=== PATIENT | male | born 1975 | race African-American/Black ===

== ENCOUNTER 2017-12-13 02:23 | Emergency (ER) | payer SELFPAY ==
--- OUTSIDE RECORDS SUMMARY | 2017-12-13 02:25 | XMS REPORT ---
:1975 [facility] Address [address] [place] [address] Dr. Narvaez [address] [place] [id number] Care Team Providers Name Role Phone Unavailable Unavailable Unavailable Problems This patient has no known problems. Allergies, Adverse Reactions, Alerts This patient has no known allergies or adverse reactions. Medications This patient has no known medications. Results Test Description Test Time Test Comments Text Results Atomic Results Result Comments SPINE LUMBAR SACR 2017-04-08 13:37:00 [facility] [place] [id number] IMAGING REPORTPatient Name: Gustavo BARROSOte of Service: [id number]: 41 Sex: M Order #: [id number] Room: CCSDOB: 1975 X-Ray Number: [id number] Record Number: [id number] Hospital Number: [id number] Physician: Agatha CROW Physician: RUBY TREVIÑO LUMBAR SACR, 04/08/2017 1:18 PM:History: LBP (lower back pain) without Trauma/Injury. . Low back painwith decreased range of motion. Left lower extremity radiculopathy..Comparison: None.Technique: 6 views lumbar spineFindings/Impression:The lumbar vertebra are normal in height. There are 5 lumbar-type vertebrallevels. There is mild grade 1 retrolisthesis of L4 on L5 and L5 on S1.There is no fracture. The facet joints are aligned bilaterally.Electronically Signed By: Ulises Pierson M.D., 04/08/2017 1:34 PMLegally authenticated by EARLINE ANAYA 2017-04-08 13:34:45
--- OUTSIDE RECORDS SUMMARY | 2017-12-13 02:25 | XMS REPORT | Continuity of Care Document ---
:1975 Author Organization [facility] Care Team Providers Name Role Phone BETHANY JORDAN Admitting Physician BETHANY JORDAN Attending Physician NONE, AVAILABLE Primary Care Physician Unavailable Hospital Admission Diagnosis Code Admission Diagnosis Date [id number] Pain in thoracic spine Social History Element Code Description Smoking Start Date End Date Description Status Code System Smoking Status 449300289 Never smoker SNOMED-CT Problems Code Code System Problem Name Start Date End Date Status 130216909 SNOMED-CT Backache 10/21/2017 Active Medications RxNorm Medication Dose Route Instructions Indications Start End Status Date Date 86 Prednisone 60 Oral orally every Active milligram day (5 day) 018 (administer with food or milk;) Allergies No Known Allergies Results No data in the system Vital Signs Vitals Value Date Body Temperature 97.5 F 10/21/2017 Respiratory Rate 20 10/21/2017 O2% BldC Oximetry 98 10/21/2017 BP Systolic 132 mmHg 10/21/2017 BP Diastolic 78 mmHg 10/21/2017 Height 64 in 10/21/2017 Weight Measured 282.19 lbs 10/21/2017 BSA (Body Surface Area) 2.2642 10/21/2017 BMI (Body Mass Index) 48.7 10/21/2017 Plan of Care No data in the system Procedures No data in the system Encounters Date Code Diagnosis Status (ICD10) - M546 PAIN IN THORACIC SPINE Active Immunizations No data in the system Functional Status No data in the system Hospital Discharge Instructions Discharge Instructions 2Discharge DiagnosisBack PainImportant InformationConsult your physician or return to the Emergency Department immediately if worse, if not better as expected, or if any problems arise.Follow Up CareYesImportant InformationPlease understand that you have received care only on an emergency basis. If your condition does notimprove, you should call your personal physician for follow-up care. If you do not have a physician,you may call the referred physician listed.If you have questions about your care or these discharge instructions, you may call the Emergency Department. Please take your discharge paperwork with you to any follow-up appointments.Follow-Up With:Primary Care PhysicianFollow up Provider 1Follow up with PCP at 1st available appointmentActivity LevelAs tolerated, unrestrictedDietRegularPrescriptions Given Via:Printed and given to patient/ caregiver.Patient TeachingPatient education provided
--- NOTE | 2017-12-13 03:35 | ER ---
Nurse's Notes [facility] Name: Ruben Alamo Age: 42 yrs Sex: Male : 1975 Arrival Date: 12/13/2017 Time: 02:27 Bed 19 Private MD: Diagnosis: Low back pain;Obesity, unspecified;Urinary tract infection, site not specified Presentation: 12/13 02:39 Presenting complaint: Patient states: "I woke up with my back hurting and called my jd3 doctor and he said to come here. I have had a back surgery in 2014, but I just wanted to get your doctors opinion.". Transition of care: patient was not received from another setting of care. Onset of symptoms was December 13, 2017. Care prior to arrival: None. 02:39 Method Of Arrival: Ambulatory jd3 02:39 Acuity: LIZBETH 4 jd3 Historical: - Allergies: 02:43 No Known Allergies; jd3 - Home Meds: 02:43 hydrocodone-acetaminophen 10-325 mg oral tab [Active]; Robaxin Oral [Active]; jd3 02:43 gabapentin oral oral [Active]; jd3 - PMHx: 02:43 None; jd3 - PSHx: 02:43 back surgery; facail reconstruction; jd3 - Immunization history:: Adult Immunizations up to date. - Social history:: Smoking status: Patient uses tobacco products, chewing tobacco. Screenin:46 Abuse screen: Denies threats or abuse. Nutritional screening: No deficits noted. jd3 Tuberculosis screening: No symptoms or risk factors identified. Fall Risk None identified. Assessment: 02:44 General: Appears in no apparent distress. uncomfortable, Behavior is calm, cooperative, jd3 appropriate for age. Pain: Complains of pain in thoracic area Pain radiates to lumbar area Pain currently is 6 out of 10 on a pain scale. Quality of pain is described as aching, Pain began 1 hour ago. Neuro: Level of Consciousness is awake, alert, obeys commands, Oriented to person, place, time, situation. Cardiovascular: Heart tones S1 S2 present Capillary refill < 3 seconds Patient's skin is warm and dry. Respiratory: Airway is patent Respiratory effort is even, unlabored, Respiratory pattern is regular, symmetrical, Breath sounds are clear bilaterally. GI: Abdomen is round Bowel sounds present X 4 quads. Abd is soft and non tender X 4 quads. : No signs and/or symptoms were reported regarding the genitourinary system. EENT: No signs and/or symptoms were reported regarding the EENT system. Derm: Skin is intact, Skin is dry, Skin is normal, Skin temperature is warm. Musculoskeletal: Circulation, motion, and sensation intact. Range of motion: intact in all extremities. 04:27 Reassessment: Patient appears in no apparent distress at this time. Patient and/or jd3 family updated on plan of care and expected duration. Pain level reassessed. Patient is alert, oriented x 3, equal unlabored respirations, skin warm/dry/pink. pt reporting understanding of discharge instructions, even and steady gait upon discharge. Vital Signs: 02:44 BP 148 / 95; Pulse 89; Resp 18 S; Temp 98.6(O); Pulse Ox 97% on R/A; Weight 127.01 kg jd3 (R); Height 5 ft. 4 in. (162.56 cm) (R); Pain 6/10; 04:28 BP 136 / 83; Pulse 81; Resp 17 S; Pulse Ox 97% on R/A; jd3 02:44 Body Mass Index 48.06 (127.01 kg, 162.56 cm) jd3 ED Course: 02:27 Patient arrived in ED. ds1 02:39 Trung Melo, RN is Primary Nurse. jd3 02:41 Triage completed. jd3 02:44 Arm band placed on. jd3 02:46 Patient has correct armband on for positive identification. Bed in low position. Call j light in reach. Side rails up X 1. 03:04 Mynor White MD is Attending Physician. geovanny 03:44 Patient moved to radiology via wheelchair. kw 03:44 X-ray completed. Patient tolerated procedure well. kw 03:45 Patient moved back from radiology. kw 04:28 No provider procedures requiring assistance completed. Patient did not have IV access jd3 during this emergency room visit. Administered Medications: No medications were administered Outcome: 03:34 Discharge ordered by . geovanny 04:29 Discharged to home ambulatory. jd3 04:29 Condition: stable 04:29 Discharge instructions given to patient, Instructed on discharge instructions, follow up and referral plans. medication usage, Demonstrated understanding of instructions, follow-up care, medications, Prescriptions given X 3. 04:29 Patient left the ED. jd3 Signatures: Mynor White MD MD cha Sanford, Demi ds1 Joselyn Hooks Jonathon, RN RN jd3
--- NOTE | 2017-12-13 03:35 | EDPHYS ---
Physician Documentation [facility] Name: Ruben Alamo Age: 42 yrs Sex: Male : 1975 Arrival Date: 12/13/2017 Time: 02:27 Bed 19 Private MD: ED Physician Mynor White HPI: 12/13 03:10 This 42 yrs old Black Male presents to ER via Ambulatory with complaints of Neck and geovanny Upper Back Pain. 03:10 This 42 yrs old Black Male presents to ER via Ambulatory with complaints of Neck and geovanny Upper Back Pain. Historical: - Allergies: 02:43 No Known Allergies; jd3 - Home Meds: 02:43 hydrocodone-acetaminophen 10-325 mg oral tab [Active]; Robaxin Oral [Active]; jd3 02:43 gabapentin oral oral [Active]; jd3 - PMHx: 02:43 None; jd3 - PSHx: 02:43 back surgery; facail reconstruction; jd3 - Immunization history:: Adult Immunizations up to date. - Social history:: Smoking status: Patient uses tobacco products, chewing tobacco. ROS: 03:12 Constitutional: Negative for fever, chills, and weight loss, Eyes: Negative for injury, geovanny pain, redness, and discharge, ENT: Negative for injury, pain, and discharge, Neck: Negative for injury, pain, and swelling, Cardiovascular: Negative for chest pain, palpitations, and edema, Respiratory: Negative for shortness of breath, cough, wheezing, and pleuritic chest pain, Back: Negative for injury and pain, : Negative for injury, bleeding, discharge, and swelling, MS/Extremity: Negative for injury and deformity, Skin: Negative for injury, rash, and discoloration, Neuro: Negative for headache, weakness, numbness, tingling, and seizure, Psych: Negative for depression, anxiety, suicide ideation, homicidal ideation, and hallucinations, Allergy/Immunology: Negative for hives, rash, and allergies, Endocrine: Negative for neck swelling, polydipsia, polyuria, polyphagia, and marked weight changes, Hematologic/Lymphatic: Negative for swollen nodes, abnormal bleeding, and unusual bruising. 03:12 Abdomen/GI: Positive for 03:12 Back: Positive for decreased range of motion, pain at rest, of the lumbar area. Exam: 03:12 Constitutional: This is a well developed, well nourished patient who is awake, alert, geovanny and in no acute distress. Head/Face: Normocephalic, atraumatic. Eyes: Pupils equal round and reactive to light, extra-ocular motions intact. Lids and lashes normal. Conjunctiva and sclera are non-icteric and not injected. Cornea within normal limits. Periorbital areas with no swelling, redness, or edema. ENT: Nares patent. No nasal discharge, no septal abnormalities noted. Tympanic membranes are normal and external auditory canals are clear. Oropharynx with no redness, swelling, or masses, exudates, or evidence of obstruction, uvula midline. Mucous membranes moist. Neck: Trachea midline, no thyromegaly or masses palpated, and no cervical lymphadenopathy. Supple, full range of motion without nuchal rigidity, or vertebral point tenderness. No Meningismus. Chest/axilla: Normal chest wall appearance and motion. Nontender with no deformity. No lesions are appreciated. Cardiovascular: Regular rate and rhythm with a normal S1 and S2. No gallops, murmurs, or rubs. Normal PMI, no JVD. No pulse deficits. Respiratory: Lungs have equal breath sounds bilaterally, clear to auscultation and percussion. No rales, rhonchi or wheezes noted. No increased work of breathing, no retractions or nasal flaring. Abdomen/GI: Soft, non-tender, with normal bowel sounds. No distension or tympany. No guarding or rebound. No evidence of tenderness throughout. Male : Normal genitalia with no discharge or lesions. Skin: Warm, dry with normal turgor. Normal color with no rashes, no lesions, and no evidence of cellulitis. MS/ Extremity: Pulses equal, no cyanosis. Neurovascular intact. Full, normal range of motion. Neuro: Awake and alert, GCS 15, oriented to person, place, time, and situation. Cranial nerves II-XII grossly intact. Motor strength 5/5 in all extremities. Sensory grossly intact. Cerebellar exam normal. Normal gait. Psych: Awake, alert, with orientation to person, place and time. Behavior, mood, and affect are within normal limits. 03:12 Back: pain, that is mild, that is moderate, ROM is painful, normal spinal alignment noted, CVA tenderness, is absent, muscle spasm, is appreciated in the left low back and right low back. Vital Signs: 02:44 BP 148 / 95; Pulse 89; Resp 18 S; Temp 98.6(O); Pulse Ox 97% on R/A; Weight 127.01 kg jd3 (R); Height 5 ft. 4 in. (162.56 cm) (R); Pain 6/10; 04:28 BP 136 / 83; Pulse 81; Resp 17 S; Pulse Ox 97% on R/A; jd3 02:44 Body Mass Index 48.06 (127.01 kg, 162.56 cm) jd3 MDM: 03:04 Patient medically screened. [facility] 03:12 Data reviewed: vital signs, nurses notes, lab test result(s), EKG. [facility] 12/13 03:22 Order name: Urine Dipstick--Ancillary (enter results) rg2 12/13 03:33 Order name: Urine Culture [facility] 12/13 03:10 Order name: Urine Dipstick-Ancillary (obtain specimen); Complete Time: 03:19 [facility] 12/13 03:10 Order name: Lumbar Spine (3 Views) XRAY [facility] 12/13 03:33 Order name: Urine Microscopic Only [facility] 12/13 04:27 Order name: Urine Dipstick-Ancillary EDMS Administered Medications: No medications were administered Disposition: 12/13/17 03:34 Discharged to Home. Impression: Low back pain, Obesity, unspecified, Urinary tract infection, site not specified. - Condition is Stable. - Discharge Instructions: Back Pain, Adult, Chronic Back Pain, Musculoskeletal Pain, Back Pain, Adult, [id number], Back Exercises, [id number]. - Prescriptions for Skelaxin 800 mg Oral Tablet - take 1 tablet by ORAL route every 6 hours As needed; 28 tablet. Tylenol- Codeine #3 300-30 mg Oral Tablet - take 2 tablet by ORAL route every 6 hours As needed; 30 tablet. Cipro 500 mg Oral Tablet - take 1 tablet by ORAL route every 12 hours for 7 days; 14 tablet. - Medication Reconciliation Form, Thank You Letter, Antibiotic Education, Prescription Opioid Use, Work release form form. - Follow up: Private Physician; When: 2 - 3 days; Reason: Recheck today's complaints, Continuance of care, Re-evaluation by your physician. - Problem is new. - Symptoms have improved. Signatures: Dispatcher [employer] EDMS Mynor White MD MD geovanny Melo, Trung, RN RN jd3
[2017-12-13 04:26] LABS: Urine Blood NEGATIVE (NEG); Urine Glucose NEGATIVE (NEG); Urine Protein NEGATIVE (NEG)
[2017-12-13 04:43] LABS: Urine Culture Reflex Order NOT NEEDED
[2017-12-13 04:44] LABS: Urine Bacteria <20 /HPF (NONE SEEN); Urine RBC NONE SEEN /HPF (NONE SEEN)
--- NOTE | 2017-12-13 09:06 | RAD REPORT ---
EXAM DESCRIPTION: Lumbar Spine 3 Views CLINICAL HISTORY: Radiculopathy COMPARISON: None. FINDINGS: Vertebral body heights appear maintained. No compression fracture noted. Disc thinning wit h small endplate osteophytes at L4-5 and L5-S1. 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 IMPRESSION: Mild lower lumbar spondylosis as detailed. Followup MR imaging of lumbar spine may be of value for further characterization.
== END 2017-12-13 04:29 | disposition home or self-care (01) ==
LOC: ER 02:23
DX: F17.220 Nicotine dependence, chewing tobacco, uncomplicated; E66.9 Obesity, unspecified; N39.0 Urinary tract infection, site not specified
CPT/HCPCS: 72100; 81003; 81015; 87086; 87088; 99283

== ENCOUNTER 2017-12-31 19:42 | Emergency (ER) | payer SELFPAY ==
--- OUTSIDE RECORDS SUMMARY | 2017-12-31 19:44 | XMS REPORT ---
:1975 [facility] Address [address] [place] [address] Dr. Narvaez [address] [place] [id number] Care Team Providers Name Role Phone Unavailable Unavailable Unavailable Problems This patient has no known problems. Allergies, Adverse Reactions, Alerts This patient has no known allergies or adverse reactions. Medications This patient has no known medications. Results Test Description Test Time Test Comments Text Results Atomic Results Result Comments SPINE LUMBAR SACR 2017-04-08 13:37:00 [facility] [place] [id number] IMAGING REPORTPatient Name: Gustavo BARROSOte of Service: [id number]: 41 Sex: M Order #: [id number] Room: CCSDOB: 1975 X-Ray Number: [id number] Record Number: [id number] Hospital Number: [id number] Physician: Agatha CROW Physician: RUBY TREVIÑO LUMBAR [...]
--- NOTE | 2017-12-31 21:36 | ER ---
Nurse's Notes [facility] Name: Ruben Almao Age: 42 yrs Sex: Male : 1975 Arrival Date: 12/31/2017 Time: 19:43 Bed 27 Private MD: Diagnosis: Low back pain;Sciatica, left side;Obesity, unspecified Presentation: 12/31 20:13 Presenting complaint: Patient states: Lower back pain that radiates down left leg. aj Transition of care: patient was not received from another setting of care. Onset of symptoms was December 30, 2017. Care prior to arrival: None. 20:13 Method Of Arrival: Ambulatory aj 20:13 Acuity: LIZBETH 4 aj Triage Assessment: 20:15 General: Appears in no apparent distress. comfortable, Behavior is calm, cooperative, aj appropriate for age. Pain: Complains of pain in coccyx, left lower back, left gluteus kallie and left gluteal fold. Neuro: Level of Consciousness is awake, alert, obeys commands, Oriented to person, place, time, situation. Respiratory: Airway is patent Respiratory effort is even, unlabored, Respiratory pattern is regular, symmetrical. Derm: Skin is intact, is healthy with good turgor, Skin is pink, warm \T\ dry. normal. Musculoskeletal: Reports pain in coccyx, left lower back, left gluteus kallie and left gluteal fold. Historical: - Allergies: 20:15 No Known Allergies; aj - Home Meds: 20:15 gabapentin Oral [Active]; hydrocodone-acetaminophen 10-325 mg Oral tab [Active]; Soma aj Oral [Active]; - PMHx: 20:15 Chronic pain; aj - PSHx: 20:15 back; aj - Immunization history:: Adult Immunizations up to date. - Social history:: Smoking status: Patient/guardian denies using tobacco. - Family history:: not pertinent. Screenin:53 Abuse screen: Denies threats or abuse. Nutritional screening: No deficits noted. kb1 Tuberculosis screening: No symptoms or risk factors identified. Fall Risk None identified. Assessment: 21:53 General: Appears in no apparent distress. Behavior is calm, cooperative. Pain: kb1 Complains of pain in left lower back, down left leg. Neuro: Level of Consciousness is awake, alert, obeys commands, Oriented to person, place, time, situation. Cardiovascular: Patient's skin is warm and dry. Respiratory: Airway is patent. GI: No signs and/or symptoms were reported involving the gastrointestinal system. : No signs and/or symptoms were reported regarding the genitourinary system. Vital Signs: 20:15 BP 133 / 81; Pulse 68; Resp 17; Temp 97.8; Pulse Ox 98% on R/A; Weight 127.01 kg; aj Height 5 ft. 4 in. (162.56 cm); 20:15 Body Mass Index 48.06 (127.01 kg, 162.56 cm) ED Course: 19:43 Patient arrived in ED. am2 20:14 Triage completed. aj 20:15 Arm band placed on left wrist. Patient placed in waiting room, Patient notified of wait aj time. 20:24 Mynor White MD is Attending Physician. geovanny 20:30 Beatrice Rose RN is Primary Nurse. kb1 21:07 Patient moved to radiology via wheelchair. kc2 21:07 X-ray completed. Patient tolerated procedure well. kc2 21:07 Patient moved back from radiology. kc2 21:08 Lumbar Spine (3 Views) XRAY In Process Unspecified. EDMS 21:53 Patient has correct armband on for positive identification. Bed in low position. Call kb1 light in reach. 21:53 No provider procedures requiring assistance completed. Patient did not have IV access kb1 during this emergency room visit. Administered Medications: 21:51 Drug: Decadron 10 mg Route: IM; Site: right deltoid; kb1 22:20 Follow up: Response: No adverse reaction kb1 21:52 Drug: TORadol 60 mg Route: IM; Site: left deltoid; kb1 22:19 Follow up: Response: No adverse reaction kb1 Outcome: 21:35 Discharge ordered by . geovanny 22:22 Discharged to home ambulatory. kb1 22:22 Condition: stable 22:22 Discharge instructions given to patient, Instructed on discharge instructions, follow up and referral plans. medication usage, Demonstrated understanding of instructions, follow-up care, medications, Prescriptions given X 2. 22:22 Patient left the ED. kb1 Signatures: Dispatcher [employer] EDMS Janie Richmond RN RN aj Anderson, Corey, MD MD cha Carr, Kelsie 2 Janie Tristan 2 Brown, Beatrice, RN RN kb1
--- NOTE | 2017-12-31 21:36 | EDPHYS ---
Physician Documentation [facility] Name: Ruben Alamo Age: 42 yrs Sex: Male : 1975 Arrival Date: 12/31/2017 Time: 19:43 Bed 27 Private MD: ED Physician Mynor White HPI: 12/31 21:32 This 42 yrs old Black Male presents to ER via Ambulatory with complaints of Low Back geovanny Pain, Leg Pain. 21:32 The patient presents with pain that is chronic, with no known mechanism of injury. The geovanny symptoms are located in the low back. The pain radiates to the left low back. The problem was sustained from unknown cause. Onset: The symptoms/episode began/occurred 2 day(s) ago. Modifying factors: The patient symptoms are alleviated by remaining still, rest, the patient symptoms are aggravated by lifting, movement, walking. Associated signs and symptoms: The patient has no apparent associated signs or symptoms. Severity of symptoms: At their worst the symptoms were moderate, in the emergency department the symptoms are unchanged. The patient has experienced similar episodes in the past, multiple times. Historical: - Allergies: 20:15 No Known Allergies; aj - Home Meds: 20:15 gabapentin Oral [Active]; hydrocodone-acetaminophen 10-325 mg Oral tab [Active]; Soma aj Oral [Active]; - PMHx: 20:15 Chronic pain; aj - PSHx: 20:15 back; aj - Immunization history:: Adult Immunizations up to date. - Social history:: Smoking status: Patient/guardian denies using tobacco. - Family history:: not pertinent. ROS: 21:32 Constitutional: Negative for fever, chills, and weight loss, Eyes: Negative for injury, geovanny pain, redness, and discharge, ENT: Negative for injury, pain, and discharge, Neck: Negative for injury, pain, and swelling, Cardiovascular: Negative for chest pain, palpitations, and edema, Respiratory: Negative for shortness of breath, cough, wheezing, and pleuritic chest pain, Abdomen/GI: Negative for abdominal pain, nausea, vomiting, diarrhea, and constipation, : Negative for injury, bleeding, discharge, and swelling, MS/Extremity: Negative for injury and deformity, Skin: Negative for injury, rash, and discoloration, Neuro: Negative for headache, weakness, numbness, tingling, and seizure, Psych: Negative for depression, anxiety, suicide ideation, homicidal ideation, and hallucinations, Allergy/Immunology: Negative for hives, rash, and allergies, Endocrine: Negative for neck swelling, polydipsia, polyuria, polyphagia, and marked weight changes, Hematologic/Lymphatic: Negative for swollen nodes, abnormal bleeding, and unusual bruising. 21:32 Back: Positive for pain at rest, pain with movement, radiated pain, of the left low back. Exam: 21:32 Constitutional: This is a well developed, well nourished patient who is awake, alert, geovanny and in no acute distress. Head/Face: Normocephalic, atraumatic. Eyes: Pupils equal round and reactive to light, extra-ocular motions intact. Lids and lashes normal. Conjunctiva and sclera are non-icteric and not injected. Cornea within normal limits. Periorbital areas with no swelling, redness, or edema. ENT: Nares patent. No nasal discharge, no septal abnormalities noted. Tympanic membranes are normal and external auditory canals are clear. Oropharynx with no redness, swelling, or masses, exudates, or evidence of obstruction, uvula midline. Mucous membranes moist. Neck: Trachea midline, no thyromegaly or masses palpated, and no cervical lymphadenopathy. Supple, full range of motion without nuchal rigidity, or vertebral point tenderness. No Meningismus. Chest/axilla: Normal chest wall appearance and motion. Nontender with no deformity. No lesions are appreciated. Cardiovascular: Regular rate and rhythm with a normal S1 and S2. No gallops, murmurs, or rubs. Normal PMI, no JVD. No pulse deficits. Respiratory: Lungs have equal breath sounds bilaterally, clear to auscultation and percussion. No rales, rhonchi or wheezes noted. No increased work of breathing, no retractions or nasal flaring. Abdomen/GI: Soft, non-tender, with normal bowel sounds. No distension or tympany. No guarding or rebound. No evidence of tenderness throughout. Male : Normal genitalia with no discharge or lesions. Skin: Warm, dry with normal turgor. Normal color with no rashes, no lesions, and no evidence of cellulitis. MS/ Extremity: Pulses equal, no cyanosis. Neurovascular intact. Full, normal range of motion. Neuro: Awake and alert, GCS 15, oriented to person, place, time, and situation. Cranial nerves II-XII grossly intact. Motor strength 5/5 in all extremities. Sensory grossly intact. Cerebellar exam normal. Normal gait. Psych: Awake, alert, with orientation to person, place and time. Behavior, mood, and affect are within normal limits. 21:32 Back: pain, that is moderate, ROM is painful, normal spinal alignment noted, CVA tenderness, is absent, muscle spasm, is appreciated in the left low back, left mid back, right mid back and right low back. Vital Signs: 20:15 BP 133 / 81; Pulse 68; Resp 17; Temp 97.8; Pulse Ox 98% on R/A; Weight 127.01 kg; aj Height 5 ft. 4 in. (162.56 cm); 20:15 Body Mass Index 48.06 (127.01 kg, 162.56 cm) aj MDM: 20:24 Patient medically screened. [facility] 12/31 21:44 Order name: Urine Dipstick--Ancillary (enter results) rg2 12/31 21:45 Order name: Urine Dipstick-Ancillary [facility] [place] 12/31 20:56 Order name: Lumbar Spine (3 Views) XRAY [facility] 12/31 20:56 Order name: Urine Dipstick-Ancillary (obtain specimen); Complete Time: 21:39 [facility] Administered Medications: 21:51 Drug: Decadron 10 mg Route: IM; Site: right deltoid; kb1 22:20 Follow up: Response: No adverse reaction kb1 21:52 Drug: TORadol 60 mg Route: IM; Site: left deltoid; kb1 22:19 Follow up: Response: No adverse reaction kb1 Disposition: 12/31/17 21:35 Discharged to Home. Impression: Low back pain, Sciatica, left side, Obesity, unspecified. - Condition is Stable. - Discharge Instructions: Back Pain, Adult, Chronic Back Pain, Musculoskeletal Pain, Obesity, Sciatica, Back Injury Prevention, [id number], Back Pain, Adult, [id number], Back Exercises, Atmp-du-Glib. - Prescriptions for Medrol (Jerardo) 4 mg Oral Tablets, Dose Pack - take 1 tablet by ORAL route as directed - follow package instructions; 1 packet. Motrin IB 200 mg Oral Tablet - take 2 tablet by ORAL route every 6 hours As needed as needed with food; 30 tablet. - Medication Reconciliation Form, Thank You Letter, Antibiotic Education, Prescription Opioid Use form. - Follow up: Private Physician; When: 2 - 3 days; Reason: Recheck today's complaints, Continuance of care, Re-evaluation by your physician. - Problem is new. - Symptoms have improved. Signatures: Dispatcher [employer] Janie Prado RN RN aj Anderson, Corey, MD MD cha Brown, Kristina RN RN kb1
[2017-12-31] MEDS ORDERED: KETOROLAC 30 MG/ML INJ ONE (21:45)
[2017-12-31] MEDS ORDERED: DEXAMETHASONE 10 MG/ML VIAL ONE (21:45)
[2017-12-31 22:17] LABS: Urine Blood NEGATIVE (NEG); Urine Glucose NEGATIVE (NEG); Urine Protein NEGATIVE (NEG); Urine Specific Gravity 1.025 (1.005-1.030); Urine pH 6.5 (5.0-7.0)
--- NOTE | 2018-01-01 07:52 | RAD REPORT ---
EXAM DESCRIPTION: RAD - Lumbar Spine 3 Views - 12/31/2017 9:24 pm CLINICAL HISTORY: Back pain, left lower extremity radiculopathy COMPARISON: December 13 FINDINGS: A three-view lumbar spine examination was performed. Lumbar bodies are normal in height an d alignment. No fracture or acute bony process seen. Early loss in disc height at L4-5 and L5-S1. Ear ly degenerative change present at the L5 -S1 facet joints. Pars defects seen on the prior study are l ess evident on the current examination. IMPRESSION: Minimal degenerative change as detailed. No new finding from December 13. Given the unresolving symptoms since November, MR imaging may be helpful for further characterization.
== END 2017-12-31 22:22 | disposition home or self-care (01) ==
LOC: ER 19:42
DX: M54.32 Sciatica, left side (principal); E66.9 Obesity, unspecified
CPT/HCPCS: 72100; 81003; 96372; 99283; J1100

== ENCOUNTER 2019-01-10 19:07 | Emergency (ER) | payer SELFPAY ==
--- OUTSIDE RECORDS SUMMARY | 2019-01-10 19:08 | XMS REPORT ---
:1975 Author Organization [employer] Care Team Providers Name Role Phone Breana Henry Provider Role Unavailable Allergies, Adverse Reactions, Alerts Substance Reaction Event Type N.K.D.A. Info Not Available Non Drug Allergy Problems Problem Type Condition Code Onset Dates Condition Status Problem Lumbago with sciatica, left side M54.42 Active Problem Body mass index (BMI) 45.0-49.9, Z68.42 Active adult Problem Other chronic pain G89.29 Active Assessment Other chronic pain G89.29 Active Assessment Lumbago with sciatica, left side M54.42 Active Assessment Body mass index (BMI) 45.0-49.9, Z68.42 Active adult Medications Medication Code Code Instructions Start End Status Dosage System Date Date Hydrocodone-Acet [facility] 48383245706 10-325 MG Orally Active 1 tablet aminophen every 6 hrs as needed [place] ND 31735046400 10-325 MG Orally Oct 08, Active 1 tablet every 6 hrs 2017 as needed Soma ND 93337528826 350 MG Orally Oct 08, Active 1 tablet daily 2017 as needed Meloxic[place] ND 35536010792 7.5 MG Orally Oct 08, Nov 07, Active 1 tablet Once a day 2017 2017 Carisoprodol ND 91898679844 350 MG Orally Active 1 tablet Four times a day as needed Meloxicam ND 98081020140 7.5 MG Orally Active 1 tablet Once a day Vital Signs Date/Time: Oct 08, 2017 BMI 47.92 Index Weight 288 lbs Height 65 in Temperature 96.8 F Cardiac Monitoring Heart Rate 87 /min Blood Pressure Diastolic 80 mm Hg Blood Pressure Systolic 120 mm Hg Results No Known Results Summary Purpose [employer]Clinical[employer] Submission
--- OUTSIDE RECORDS SUMMARY | 2019-01-10 19:08 | XMS REPORT ---
:1975 [facility] Address [address] [place] [address] Dr. Narvaez [address] [place] [id number] Care Team Providers Name Role Phone Unavailable Unavailable Unavailable Problems This patient has no known problems. Allergies, Adverse Reactions, Alerts This patient has no known allergies or adverse reactions. Medications This patient has no known medications. Results Test Description Test Time Test Comments Text Results Atomic Results Result Comments SPINE LUMBAR SACR 2017-04-08 13:37:00 [id number] [place] [id number] IMAGING REPORTPatient Name: Gustavo BARROSOte of Service: [id number]: 41 Sex: M Order #: [id number] Room: CCSDOB: 1975 X-Ray Number: [id number] Record Number: [id number] Hospital Number: [id number] Physician: Agatha CROW Physician: RUBY TREVIÑO LUMBAR [...]
--- OUTSIDE RECORDS SUMMARY | 2019-01-10 19:08 | XMS REPORT ---
:1975 Author Organization [employer] Care Team Providers Name Role Phone KadeMannie keithToussaint Provider Role Unavailable Allergies No Known Allergies Problems Problem Type Condition Code Onset Dates Condition Status Problem Lumbago with sciatica, left side M54.42 Active Problem Body mass index (BMI) 45.0-49.9, Z68.42 Active adult Problem Other chronic pain G89.29 Active Assessment Lumbago with sciatica, left side M54.42 Active Medications Medication Code Code Instructions Start End Date Status Dosage System Date Acetaminophen- [facility] 55746338925 300-30 MG Orally Oct 25, Active 1 tablet Codeine #3 every 6 hrs 2018 as needed Results No Known Results Summary Purpose [employer] Submission
--- OUTSIDE RECORDS SUMMARY | 2019-01-10 19:08 | XMS REPORT ---
[...] Start End Status Dosage System Date Date Meloxicam NDC 53833576394 7.5 MG Orally Active 1 tablet Once a day Hydrocodone-Acet NDC 26019955226 10-325 MG Active 1 tablet aminophen Orally every 6 as needed hrs Meloxicam NDC 69966061339 7.5 MG Orally Oct 08, Active 1 tablet Once a day 2018 Soma NDC 55476742897 350 MG Orally Oct 08, Active 1 tablet daily 2018 as needed Carisoprodol ND 49682391839 350 MG Orally Active 1 tablet Four times a as needed day Hydrocodone-Acet NDC 53269003149 10-325 MG Active 1 tablet aminophen Orally every 6 as needed hrs Acetaminophen-Co ND 04146065717 300-30 MG Oct 25, Active 1 tablet deine #3 Orally every 6 2017 as needed hrs [place] ND 98004618865 10-325 MG Oct 08, Inactive 1 tablet Orally every 6 2017 as needed hrs Vital Signs Date/Time: Oct 25, 2017 BMI 47.92 Index Weight 288 lbs Height 65 in Temperature 97.8 F Cardiac Monitoring Heart Rate 85 /min Blood Pressure Diastolic 75 mm Hg Blood Pressure Systolic 125 mm Hg Results No Known Results Summary Purpose eClinicalWorks Submission
--- OUTSIDE RECORDS SUMMARY | 2019-01-10 19:08 | XMS REPORT | Continuity of Care Document ---
:1975 Author Organization Interface Problems Problem Status Onset Classification Date Comments Source Date Reported Lumbago Active Problem 11/07/2017 Family with Diagnostic sciatica, left side Body mass Active Problem 11/07/2017 Family index Diagnostic 45.0-49.9, adult Other Active Problem 11/07/2017 Family chronic Diagnostic pain Medications Medication Details Route Status Patient Ordering Order Source Instructions Provider Date Acetaminophen-C 1 tablet Orally Active 300-30 MG Irfan Family odeine #3 as needed Orally every 6 018 Diagnostic hrs [place] 1 tablet Orally Active 10-325 MG Irfan Family as needed Orally every 6 018 Diagnostic hrs Soma 1 tablet Orally Active 350 MG Orally Irfan Family as needed daily 018 Diagnostic Meloxicam 1 tablet Orally Active 7.5 MG Orally Irfan Family Once a day 018 Diagnostic Hydrocodone-[place] 1 tablet Orally Active 10-325 MG Irfan [facility] taminophen as needed Orally every 6 Diagnostic hrs Carisoprodol 1 tablet Orally Active 350 MG Orally Irfan Family as needed Four times a Diagnostic day Meloxicam 1 tablet Orally Active 7.5 MG Orally Irfan Family Once a day Diagnostic Allergies, Adverse Reactions, Alerts Substance Category Reaction Severity Reaction Status Date Comments Source type Reported N.K.D.A. Adverse Info Not Adverse Active Family Reaction Available Reaction 8 Diagnostic Immunizations Immunization Date Given Site Status Last Updated Comments Source Results Order Results Value Reference Date Interpretation Comments Source Name Range Vital Signs Vital Sign Value Date Comments Source Weight 288 10/25/2017 Family Diagnostic Height 65 10/25/2017 [facility] Temperature Oral (F) 97.8 F 10/25/2017 [facility] Heart Rate 85 10/25/2017 [facility] Diastolic (mm Hg) 75 10/25/2017 [facility] Systolic (mm Hg) 125 10/25/2017 Family [facility] Weight 288 10/08/2017 Family [facility] Height 65 10/08/2017 Family [facility] Temperature Oral (F) 96.8 F 10/08/2017 Family [facility] Heart Rate 87 10/08/2017 Family [facility] Diastolic (mm Hg) 80 10/08/2017 [facility] Systolic (mm Hg) 120 10/08/2017 Family Diagnostic Encounters Location Location Encounter Encounter Reason Attending ADM DC Status Source Details Type Number For Provider Date Date Visit Procedures Procedure Code Date Perfomer Comments Source
[2019-01-10 19:47] LABS: Absolute Lymphocytes (CBC) 1.5 K/uL (0.7-4.9); Absolute Monocytes 0.4 K/uL (0.1-1.3); Absolute Neutrophil 3.9 K/uL (1.8-8.0); Basophils % 8.1 % (0-1.3); Eosinophils % 2.8 % (0-4.4); Hematocrit 43.9 % (39.6-49.0); Lymphocytes % 22.5 % (15.3-44.8); Monocytes % 6.7 % (3.3-12.3); RBC Red Blood Cell Count 4.77 M/uL (4.33-5.43)
[2019-01-10] MEDS ORDERED: FLEET ENEMA ADULT PR ONE (19:50)
[2019-01-10] MEDS ORDERED: MAGNESIUM CITRATE 300 ML BOT ONE (19:50)
[2019-01-10 20:03] LABS: ALT/SGPT 115 U/L (12-78); AST/SGOT 57 U/L (15-37); Albumin 3.9 g/dL (3.4-5.0); Alkaline Phosphatase 120 U/L (45-117); BUN Blood Urea Nitrogen 11 mg/dL (7-18); Bicarbonate 30 mmol/L (21-32); Bilirubin Direct 0.2 mg/dL (0-0.2); Bilirubin Total 0.7 mg/dL (0.2-1.0); Glucose Level 117 mg/dL (74-106); Lipase 55 U/L (73-393); Potassium 4.1 mmol/L (3.5-5.1); Protein, Total 7.9 g/dL (6.4-8.2); Sodium Level 140 mmol/L (136-145)
[2019-01-10 20:08] LABS: Blood Morphology Comment NOT SEEN (NOT SEEN); Platelet Estimate ADEQ; Urine White Blood Cell Casts OK
[2019-01-10] MEDS ORDERED: KETOROLAC 30 MG/ML INJ ONE (21:02)
--- NOTE | 2019-01-10 23:09 | EDPHYS ---
Physician Documentation [facility] Name: Ruben Alamo Age: 43 yrs Sex: Male : 1975 Arrival Date: 01/10/2019 Time: 19:10 Bed 14 Private MD: out of town, doctor ED Physician Romie Rogers HPI: 01/10 19:34 This 43 yrs old Black Male presents to ER via Ambulatory with complaints of Abdominal ps1 Pain. 19:34 Patient states that has not had a bowel movement in 2 weeks. Patient is a chronic ps1 opioid user. He has been on [place] since 2014 2/2 neck surgery and back pain. Patient states that he does not use stool softeners, He has generalized abdominal pain. He states that he has not used his norco in 2 weeks. Pt states that he is not passing flatus but does not remember when the last time he did. . Historical: - Allergies: 19:20 No Known Allergies; jd3 - Home Meds: 19:20 None [Active]; jd3 - PMHx: 19:20 Chronic pain; jd3 - PSHx: 19:20 back; face; jd3 - Immunization history:: Adult Immunizations up to date. - Social history:: Smoking status: Patient uses tobacco products, chewing tobacco. - Ebola Screening: : Patient negative for fever greater than or equal to 101.5 degrees Fahrenheit, and additional compatible Ebola Virus Disease symptoms. ROS: 19:34 Constitutional: Negative for fever, chills, and weight loss, Eyes: Negative for injury, ps1 pain, redness, and discharge, ENT: Negative for injury, pain, and discharge, Cardiovascular: Negative for chest pain, palpitations, and edema, Respiratory: Negative for shortness of breath, cough, wheezing, and pleuritic chest pain, Back: Negative for injury and pain, MS/Extremity: Negative for injury and deformity, Skin: Negative for injury, rash, and discoloration, Neuro: Negative for headache, weakness, numbness, tingling, and seizure. 19:34 Abdomen/GI: Positive for abdominal pain, nausea, constipation, abdominal cramps, obstipation. Exam: 19:34 Constitutional: This is a well developed, well nourished patient who is awake, alert, ps1 and in no acute distress. Head/Face: Normocephalic, atraumatic. Eyes: Pupils equal round and reactive to light, extra-ocular motions intact. Lids and lashes normal. Conjunctiva and sclera are non-icteric and not injected. Chest/axilla: Normal chest wall appearance and motion. Nontender with no deformity. No lesions are appreciated. Cardiovascular: Regular rate and rhythm. No gallops, murmurs, or rubs. Normal PMI, no JVD. No pulse deficits. Respiratory: Lungs have equal breath sounds bilaterally, clear to auscultation and percussion. No rales, rhonchi or wheezes noted. No increased work of breathing, no retractions or nasal flaring. Skin: Warm, dry with normal turgor. Normal color with no rashes, no lesions, and no evidence of cellulitis. MS/ Extremity: Pulses equal, no cyanosis. Neurovascular intact. Full, normal range of motion. 19:34 Abdomen/GI: Inspection: abdomen appears normal, Bowel sounds: normal, Palpation: moderate abdominal tenderness, in all quadrants. Vital Signs: 19:20 BP 136 / 80; Pulse 80; Resp 17 S; Temp 97.0(TE); Pulse Ox 95% on R/A; Weight 127.01 kg jd3 (R); Height 5 ft. 5 in. (165.10 cm) (R); Pain 8/10; 21:00 BP 149 / 95; Pulse 85; Resp 16; Pulse Ox 100% ; jb4 22:30 BP 137 / 85; Pulse 79; Resp 16; Pulse Ox 95% on R/A; jb4 19:20 Body Mass Index 46.59 (127.01 kg, 165.10 cm) jd3 MDM: 19:25 Patient medically screened. ps1 01/10 19:21 Order name: Basic Metabolic Panel; Complete Time: 20:12 jb4 01/10 19:21 Order name: CBC with Diff; Complete Time: 20:12 jb4 01/10 19:21 Order name: Creatinine for Radiology; Complete Time: 20:03 jb4 01/10 19:21 Order name: Hepatic Function; Complete Time: 20:12 jb4 01/10 19:21 Order name: Lipase; Complete Time: 20:12 jb4 01/10 20:08 Order name: CBC Smear Scan; Complete Time: 20:12 EDCT 01/10 19:21 Order name: IV Saline Lock; Complete Time: 19:39 jb4 01/10 19:21 Order name: Labs collected and sent; Complete Time: :39 jb4 01/10 19:21 Order name: CT Abd/Pelvis - W/Contrast jb4 Administered Medications: 19:43 Drug: Magnesium Citrate Liquid 300 ml Route: PO; jb4 21:49 Follow up: Response: No adverse reaction jb4 19:47 Drug: Fleet Enema 133 ml Route: DE; jb4 21:49 Follow up: Response: No adverse reaction jb4 20:50 Drug: TORadol 30 mg Route: IVP; Site: right hand; jb4 21:49 Follow up: Response: No adverse reaction; Pain is decreased jb4 Disposition: 01/10/19 23:09 Patient has left against medical advice. - Patients states they are going to Home. - Condition is Stable. Signatures: Dispatcher [employer] Darnell Dangelo RN RN jb4 Trung Melo RN RN jd3 Romie Rogers MD MD ps1
--- NOTE | 2019-01-10 23:09 | ER ---
Nurse's Notes [facility] Name: Ruben Alamo Age: 43 yrs Sex: Male : 1975 Arrival Date: 01/10/2019 Time: 19:10 Bed 14 Private MD: out of town, doctor Diagnosis: Presentation: 01/10 19:16 Presenting complaint: Patient states: "I haven't been able to use the bathroom in 2 jd3 weeks. I have taken stool softeners for 2 days now, but still have not been able to go to the restroom.". Transition of care: patient was not received from another setting of care. Onset of symptoms was December 27, 2018. Risk Assessment: Do you want to hurt yourself or someone else? Patient reports no desire to harm self or others. Initial Sepsis Screen: Does the patient meet any 2 criteria? No. Patient's initial sepsis screen is negative. Does the patient have a suspected source of infection? No. Patient's initial sepsis screen is negative. Care prior to arrival: None. 19:16 Method Of Arrival: Ambulatory jd3 19:16 Acuity: LIZBETH 3 jd3 Historical: - Allergies: 19:20 No Known Allergies; jd3 - Home Meds: 19:20 None [Active]; jd3 - PMHx: 19:20 Chronic pain; jd3 - PSHx: 19:20 back; face; jd3 - Immunization history:: Adult Immunizations up to date. - Social history:: Smoking status: Patient uses tobacco products, chewing tobacco. - Ebola Screening: : Patient negative for fever greater than or equal to 101.5 degrees Fahrenheit, and additional compatible Ebola Virus Disease symptoms. Screenin:30 Abuse screen: Denies threats or abuse. Nutritional screening: No deficits noted. jb4 Tuberculosis screening: No symptoms or risk factors identified. Fall Risk IV access (20 points). Total Fuentes Fall Scale indicates No Risk (0-24 pts). Assessment: 19:30 General: Appears uncomfortable, obese, Behavior is calm, cooperative. Pain: Complains jb4 of pain in abdomen, rectal Pain does not radiate. Pain currently is 10 out of 10 on a pain scale. Neuro: Level of Consciousness is awake, alert, obeys commands, Oriented to person, place, time, situation. Cardiovascular: Patient's skin is warm and dry. Respiratory: Airway is patent Respiratory effort is even, unlabored, Respiratory pattern is regular, symmetrical. GI: Abdomen is obese, Bowel sounds present X 4 quads. Abd is soft and non tender X 4 quads. Reports constipation, abdominal and rectal pain, unable to have a bowel movement for 2 weeks. : No signs and/or symptoms were reported regarding the genitourinary system. EENT: No signs and/or symptoms were reported regarding the EENT system. Derm: Skin is intact, Skin is dry, Skin is normal, Skin temperature is warm. Musculoskeletal: Circulation, motion, and sensation intact. Range of motion: intact in all extremities. 20:26 Reassessment: Pt is currently still in the restroom trying to have a bowel movement. jb4 21:26 Reassessment: Patient appears in no apparent distress at this time. Patient and/or jb4 family updated on plan of care and expected duration. Pain level reassessed. Patient is alert, oriented x 3, equal unlabored respirations, skin warm/dry/pink. PT to CT. 23:00 Reassessment: Patient appears in no apparent distress at this time. Patient and/or jb4 family updated on plan of care and expected duration. Pain level reassessed. Patient is alert, oriented x 3, equal unlabored respirations, skin warm/dry/pink. PT left AMA, asked to wait and stay for results of test. Responded "I have to leave and go get my daughter.". Vital Signs: 19:20 BP 136 / 80; Pulse 80; Resp 17 S; Temp 97.0(TE); Pulse Ox 95% on R/A; Weight 127.01 kg jd3 (R); Height 5 ft. 5 in. (165.10 cm) (R); Pain 8/10; 21:00 BP 149 / 95; Pulse 85; Resp 16; Pulse Ox 100% ; jb4 22:30 BP 137 / 85; Pulse 79; Resp 16; Pulse Ox 95% on R/A; jb4 19:20 Body Mass Index 46.59 (127.01 kg, 165.10 cm) jd3 ED Course: 19:10 Patient arrived in ED. es 19:10 out of town, doctor is Private Physician. es 19:11 Romie Rogers MD is Attending Physician. ps1 19:13 Darnell Watkins, RN is Primary Nurse. jb4 19:19 Triage completed. jd3 19:21 Arm band placed on. jd3 19:30 Patient has correct armband on for positive identification. Placed in gown. Bed in low jb4 position. Call light in reach. Side rails up X 1. Pulse ox on. NIBP on. 19:30 Initial lab(s) drawn, by id, sent to lab. Inserted saline lock: 22 gauge in right hand, jb4 using aseptic technique. Blood collected. 20:25 Radiology exam delayed due to PT REFUSING CT AT THIS TIME; NURSE NOTIFIED WILL CALL WHEN PT IS READY. 21:08 Inserted saline lock: 20 gauge in left antecubital area, using aseptic technique. using jd3 ultrasound machine. 21:[address] via wheelchair. 21:36 CT completed. Patient tolerated procedure well. Patient moved back from CT. 21:50 CT Abd/Pelvis - W/Contrast In Process Unspecified. EDFL 23:07 No provider procedures requiring assistance completed. IV discontinued, intact, jb4 bleeding controlled. Administered Medications: 19:43 Drug: Magnesium Citrate Liquid 300 ml Route: PO; jb4 21:49 Follow up: Response: No adverse reaction jb4 19:47 Drug: Fleet Enema 133 ml Route: TN; jb4 21:49 Follow up: Response: No adverse reaction jb4 20:50 Drug: TORadol 30 mg Route: IVP; Site: right hand; jb4 21:49 Follow up: Response: No adverse reaction; Pain is decreased jb4 Outcome: 23:07 AMA AMA form signed jb4 23:07 Condition: stable 23:07 Discharge instructions given to patient, Instructed on follow up and referral plans. Demonstrated understanding of instructions. 23:09 Patient left the ED. jb4 Signatures: Dispatcher [employer] EDFL Shruti Hu Ervin Darnell Watkins RN RN jb4 Trung Melo RN RN jd3 Singer, Phillip, MD MD ps1 Corrections: (The following items were deleted from the chart) 19:23 19:16 Acuity: LIZBETH 4 jd3 jd3 21:53 19:30 GI: Abdomen is obese, Reports constipation, abdominal and rectal pain, unable to jb4 have a bowel movement for 2 weeks. jb4 23:07 22:30 No provider procedures requiring assistance completed. jb4 jb4 :30 IV discontinued, intact, bleeding controlled, jb4 jb4
--- NOTE | 2019-01-13 12:28 | RAD REPORT ---
EXAM DESCRIPTION: CT - Abdomen Pelvis W Contrast - 01/10/2019 10:08 pm CLINICAL HISTORY: The patient is 43 years old and is Male; CONSTIPATION TECHNIQUE: Axial computed tomography images of the abdomen and pelvis with intravenous contrast. S agittal and coronal reformatted images were created and reviewed. This CT exam was performed using one or more of the following dose reduction techniques: automated exposure control, adjustment of t he mA and/or kV according to patient size, and/or use of iterative reconstruction technique. COMPARISON: No relevant prior studies available. FINDINGS: Lung bases: Unremarkable. No mass. No consolidation. ABDOMEN: Liver: Unremarkable. No mass. Gallbladder and bile ducts: Unremarkable. No calcified stones. No ductal dilation. Pancreas: Unremarkable. No mass. No ductal dilation. Spleen: Unremarkable. No splenomegaly. Adrenals: Unremarkable. No mass. Kidneys and ureters: Unremarkable. No solid mass. No hydronephrosis. Stomach and bowel: Moderate amount of stool seen throughout the ascending and transverse colon. No bowel inflammatory changes. No obstruction. No mucosal thickening. PELVIS: Appendix: Appendix seen, within normal limits. Bladder: Unremarkable. No mass. Reproductive: Unremarkable as visualized. ABDOMEN and PELVIS: Intraperitoneal space: Unremarkable. No free air. No significant fluid collection. Bones/joints: No acute fracture. No dislocation. Soft tissues: Unremarkable. Vasculature: Unremarkable. No abdominal aortic aneurysm. Lymph nodes: Unremarkable. No enlarged lymph nodes. IMPRESSION: Moderate amount of stool seen throughout the ascending and transverse colon. Otherwise n o acute abnormality seen. No bowel inflammatory changes. Electronically signed by: Sebastian Hoang MD 01/10/2019 9:57 PM CDT Due to temporary technical issues with the PACS/Fluency reporting system, reports are being signed by the in house radiologist as a courtesy to ensure prompt reporting. The interpreting radiologist is f ully responsible for the content of the report.
== END 2019-01-10 23:09 | disposition left against medical advice (07) ==
LOC: ER 19:07
DX: K59.00 Constipation, unspecified (principal); Z72.0 Tobacco use
CPT/HCPCS: 36415; 74177; 80048; 80076; 83690; 85025; 96374; 99284; Q9967

== ENCOUNTER 2021-12-18 23:56 | Emergency (ER) | payer SELFPAY ==
--- OUTSIDE RECORDS SUMMARY | 2021-12-18 23:59 | XMS REPORT | Continuity of Care Document ---
:1975 Author Organization [facility] t Address [address] [place] [address] Care Team Providers Name Role Phone ELIJAH Attending Clinician Unavailable NIKKI Attending Clinician Unavailable Physician, Primary or Family Admitting Clinician Unavailabl e ELIJAH Admitting Clinician Unavailable Payers Payer Name Policy Type Policy Number Effective Date Expiration Date S ource Problems Condition Condition Condition Status Onset Resolution Last Treating Co mments Source Name Details Category Date Date Treatment Clinician Date Backache [facility] V/SA[facility] Lumbago Problem Active 2017-11-07 Enrique elkin with 03:47:18 l sciatica, Lumbago Herm marcus left side with sciatica, left side Active Problem 11/07/2017 [facility] Body mass Problem Active 2017-11-07 Me moria index 03:47:18 l (BMI) Body [place] 45.0-49.9, mass index adult (BMI) 45.0-49.9, adult Active Problem 11/07/2017 [facility] Other Problem Active 2017-11-07 Memor ia chronic 03:47:18 l pain Other Tavo chronic pain Active Problem 11/07/2017 [facility] Allergies, Adverse Reactions, Alerts Allergy Allergy Status Severity Reaction(s) Onset Inactive Treating Comm ents Source Name Type Date Date Clinician No Known DA Active [facility] 2020[facility]0 [facility] [place] [facility] No Known DA Active U 2020-0 [facility] [place] [facility] 00 [facility] Social History Smoking Status Start Date Stop Date Source Never smoker [facility] (LUF/BLANCA/SA) Medications Ordered Filled Start Stop Current Ordering Indication Dosage Frequency Signature Comments Components Source Medication Medication Date Date Medication? Clinician (SIG) Name Name Carisoprodo Yes Toussaint 1 tablet [facility] l 2-14 Irfan as needed l 03:47: Tavo Meloxicam 2017-0 Yes Toussaint 1 tablet [facility] 2-14 Irfan l 03:47: Tavo 13 Hydrocodone 2017-0 Yes Toussaint 1 tablet Memoria -Acetaminop 2-14 Irfan as needed l hen 03:47: Tavo Carisoprodo 2017-0 Yes Toussaint 1 tablet Memoria l 2-14 Irfan as needed l 03:47: Tavo 13 Meloxicam 2017-0 Yes Toussaint 1 tablet [facility] 2-14 Irfan l 03:47: Tavo 13 Hydrocodone 2017-0 Yes Toussaint 1 tablet [facility] -Acetaminop 2-14 Irfan as needed l hen 03:47: Tavo 13 Carisoprodo 2018-0 Yes Toussaint 1 tablet Mem[facility] l 2-14 Irfan as needed l 03:47: Tavo 13 Meloxicam 2017-0 Yes Toussaint 1 tablet Memoria 2-14 Irfan l 03:47: Tavo 13 Hydrocodone 2018-0 Yes Toussaint 1 tablet [facility] -Acetaminop 2-14 Irfan as needed l hen 03:47: Tavo 13 Acetaminoph 2018-0 Yes Toussaint 1 tablet [facility] en-Codeine 2-01 Irfan as needed l #3 00:00: Acetaminoph 2018-0 Yes Toussaint 1 tablet [facility] en-Codeine 2-01 Irfan as needed l #3 00:00: Acetaminoph 2018-0 Yes Toussaint 1 tablet [facility] en-Codeine 2-01 Irfan as needed l #3 00:00: Prednisone Prednisone 2018-0 Yes 60mg QD [facility] (LUF/LI V/SA) Merced 2018-0 Yes Toussaint 1 tablet Enrique elkin 1-15 Irfan as needed l 00:00: Soma 2018-0 Yes Toussaint 1 tablet Memor ia 1-15 Irfan as needed l 00:00: Meloxicam 2018-0 Yes Toussaint 1 tablet Memoria 1-15 Irfan l 00:00: Merced 2018-0 Yes Toussaint 1 tablet Enrique elkin 1-15 Irfan as needed l 00:00: Soma 2018-0 Yes Toussaint 1 tablet Memor ia 1-15 Irfan as needed l 00:00: Meloxicam 2018-0 Yes Toussaint 1 tablet [facility]oria 1-15 Irfan l 00:00: Merced 2018-0 Yes Toussaint 1 tablet Enrique elkin 1-15 Irfan as needed l 00:00: Soma 2018-0 Yes Toussaint 1 tablet Memor ia 1-15 Irfan as needed l 00:00: Meloxicam 2018-0 Yes Toussaint 1 tablet Memoria 1-15 Irfan l 00:00: Vital Signs Vital Name Observation Time Observation Value Comments Source Weight 2017-10-25 15:00:00 [facility] Tavo Height 2017-10-25 15:00:00 [facility] Tavo Temperature Oral (F) 2017-10-25 15:00:00 97.8 F [facility] Heart Rate 2017-10-25 15:00:00 [facility] Tavo Diastolic (mm Hg) 2017-10-25 15:00:00 Mem orial Tavo Systolic (mm Hg) 2017-10-25 15:00:00 Enrique rial [place] Body Temperature 2017-10-21 12:00:[address] [facility] (LUF/BLANCA/SA) Respiratory Rate 2017-10-21 12:00:00 20 /min [facility] (LUF/BLANCA/SA) O2% BldC Oximetry 2017-10-21 12:00:00 98 % [facility] (LUF/BLANCA/SA) BP Systolic 2017-10-21 12:00:00 132 mm[Hg] [facility] (LUF/BLANCA/SA) BP Diastolic 2017-10-21 12:00:00 78 mm[Hg] [facility] (LUF/BLANCA/SA) Height 2017-10-21 12:00:00 64 in [facility] (LUF/BLANCA/SA) Weight Measured 2017-10-21 12:00:00 282.19 lbs [facility] (LUF/BLANCA/SA) BMI (Body Mass Index) 2017-10-21 12:00:[address] [facility] (LUF/BLANCA/SA) Weight 2017-10-08 15:45:00 [facility] [place] Height 2017-10-08 15:45:00 [facility] Temperature Oral (F) 2017-10-08 15:45:00 96.8 F [facility] [place] Heart Rate 2017-10-08 15:45:00 [facility] Diastolic (mm Hg) 2017-10-08 15:45:00 Mem orial [place] Systolic (mm Hg) 2017-10-08 15:45:00 Enrique rial [place] Procedures This patient has no known procedures. Encounters Start End Encounter Admission Attending Care Care Encounter Source Date/Time Date/Time Type Type Clinicians Facility Department ID 2021-06-20 Outpatient [id number] Memoria 14:21:52 [id number] [place] [id number] 2021-06-20 Outpatient [id number] Mem[facility] 14:21:45 [id number] [place] [id number] 2021-05-30 Outpatient [id number] Memoria 15:44:20 [id number] Tavo [id number] 2020-01-20 Inpatient [facility] [id number] [facility] 15:25:00 [id number] [facility] 2019-12-16 Inpatient [facility] [id number] [facility] 17:49:00 [id number] [facility] 2019-12-12 Inpatient [facility] [id number] [facility] 08:32:00 [id number] [facility] 2019-11-27 Inpatient [facility] [id number] [facility] 07:33:00 [id number] [facility] 2021-09-14 2021-09-14 Outpatient FERGUSON_AURELIANO [facility] [id number] [place] 02:13:00 02:13[place] [id number] [facility] 2021-09-08 2021-09-08 Outpatient FERGUSON_JO M[facility] [id number] [place] 02:19:00 02:19:[place] [id number] [facility] 2017-10-21 2017-10-21 PAIN IN NIKKI, [facility] [id number] [facility] 11:[facility] 14:48[facility]00 [facility], [address], (LUF/[place] [address] Results Test Description Test Time Test Comments Results Result [facility] e Comments - CT HEAD/BRAIN 2019-12-16 Patient Name: W/O CONT 18:19:00 VIMAL BARROSO Unit No: [id number] EXAMS: CPT CODE: [id number] CT HEAD/BRAIN W/O CONT 77136 CLINICAL INFORMATION: Moderate frontal headaches. Coughing. Dictation Location: R 16 COMPARISON: No prior. Technique: CT was done in the usual fashion. Sagittal and coronal reconstructions. Appropriate dose reduction and image optimization technique was used. DLP 758 mGy-cm. FINDINGS: No area of focal scalp swelling identified. The skull base and cranium appear unremarkable on the bone windows. There is no hydrocephalus or atrophy. No midline shift, mass effect, hemorrhage, or abnormal extra-axial fluid collection is identified. Brain density is unremarkable with no intrinsic mass or recent ischemia identified. IMPRESSION: Unremarkable skull and brain, with no mass or acute event identified. at 181 Reported and signed by: Deepak Tee MD CC: Germania Engel NP Dictated Date/Time: 12/16/2019 (1818) Technologist: Ibis Mata - Kirsten CTDI: 45.04 DLP: 757.79 Trnscrpt: 12/16/2019 (1818) Carlo.AGV LORETA Lopez NAME: LEANNA BARROSO[address] PHYS: Germania Isaacs [place] [address] : 1975 AGE: 44 SEX: M LOC: B.CrowdTwist PHONE #: [phone] EXAM DATE: 12/16/2019 STATUS: PRE ER FAX #: [phone] RAD #: D/C DT PAGE 1 Signed Report Patient Name: VIMAL BARROSO Unit No: [id number] EXAMS: CPT CODE: [id number] CT HEAD/BRAIN W/O CONT 12880 <Continued> Orig Print D/T: S: 12/16/2019 (1821) LORETA Lopez NAME: VIMAL BARROSO [address] [place] [address] PHYS: Germania Isaacs NP [place] [address] : 1975 AGE: 44 SEX: M LOC: B.ERS PHONE #: [phone] EXAM DATE: 12/16/2019 STATUS: PRE ER FAX #: [phone] RAD #: D/C DT PAGE 2 Signed Report - XR CHEST 2 V 2019-12-12 FAX: Germania Engel 09:11:00 JENARO [phone] [place]: St: REG Patient Name: VIMAL BARROSO Unit No: [id number] EXAMS: CPT CODE: [id number] XR CHEST 2 V 70400 - XR CHEST 2 V LOCATION: T18 INDICATION:Cough The lungs are well expanded and free of infiltrates. The costophrenic recesses are sharp without effusion. The heart, mediastinum and bony structures are within normal limits. Cervical spine fusion plate noted. IMPRESSION: No active disease. at 0911 Reported and signed by: Zach Rubi D.O. CC: Germania Engel NP Dictated Date/Time: 12/12/2019 (910)Technologist: Shannan Schmitz Transcribed Date/Time: 12/12/2019 (910) By: Joanna Orig Print D/T: S: 12/12/2019 (913) LORETA Lopez NAME: VIMAL BARROSO [address] [place] [address] Bl PHYS: [place] [address] : 1975 AGE: 44 SEX: M LOC: BZULEMA PHONE #: [phone] EXAM DATE: 12/12/2019 STATUS: REG ER FAX #: [phone] RAD NO: DC Dt: PAGE 1 Signed Report SPINE LUMBAR SACR 2017-04-08 [place] [address]:37:[address] [id number] IMAGING REPORTPatient Name: Lili BARROSO of Service: [id number]: 41 Sex: M Order #: [id number] Room: [facility]: 1975 X-Ray Number: [id number] Record Number: [id number] Hospital Number: [id number] Physician: Agatha CROW Physician: RUBY TREVIÑO, 04/08/2017 1:18 PM:History: LBP (lower back pain) without Trauma/Injury. . Low back painwith decreased range of motion. Left lower extremity radiculopathy..Compar anthony: None.Technique: 6 views lumbar spineFindings/Impress ion:The lumbar vertebra are normal in height. There are 5 lumbar-type vertebrallevels. There is mild grade 1 retrolisthesis of L4 on L5 and L5 on S1.There is no fracture. The facet joints are aligned bilaterally.Solange menendez Signed By: Ulises Pierson M.D., 04/08/2017 1:34 PMLegally authenticated by EARLINE ANAYA 2017-04-08 13:34:45
--- NOTE | 2021-12-19 00:46 | EDPHYS ---
Physician Documentation [facility] Name: Ruben Alamo Age: 46 yrs Sex: Male : 1975 Arrival Date: 12/18/2021 Time: 23:59 Bed 19 Private MD: ED Physician Arturo Godoy HPI: 12/19 00:35 This 46 yrs old Black Male presents to ER via Ambulatory with complaints of Jaw Pain. cp 00:35 The patient presents with pain, right upper jaw. Onset: The symptoms/episode cp began/occurred 2-3 weeks ago. Duration: The symptoms are continuous, and are steadily getting worse. Associated signs and symptoms: Pertinent negatives: anorexia, dysphagia, fever, inability to eat, facial swelling. 00:35 Severity of symptoms: in the emergency department the symptoms are unchanged, despite cp home interventions. Historical: - Allergies: 00:09 Iodine; lp1 00:09 SHELLFISH; lp1 - Home Meds: 00:09 hydrocodone-acetaminophen 10-325 mg Oral tab [Active]; lp1 - PMHx: 00:09 Chronic pain; lp1 - PSHx: 00:09 Spinal surgery; lp1 - Immunization history:: Adult Immunizations up to date. - Social history:: Smoking status: Patient denies any tobacco usage or history of. ROS: 00:40 Constitutional: Negative for body aches, chills, fever, poor PO intake. cp 00:40 Eyes: Negative for injury, pain, redness, and discharge. cp 00:40 ENT: Positive for dental pain, Negative for drainage from ear(s), ear pain, sore throat, difficulty swallowing, difficulty handling secretions. 00:40 Neck: Negative for pain with movement, pain at rest, stiffness. 00:40 Cardiovascular: Negative for chest pain. 00:40 Respiratory: Negative for cough, shortness of breath, wheezing. 00:40 Abdomen/GI: Negative for abdominal pain, nausea, vomiting, and diarrhea. 00:40 Neuro: Negative for altered mental status, headache, weakness. 00:40 All other systems are negative. Exam: 00:42 Constitutional: The patient appears in no acute distress, alert, awake, non-toxic, well cp developed, well nourished. 00:42 Head/Face: Normocephalic, atraumatic. cp 00:42 Eyes: Periorbital structures: appear normal, Conjunctiva: normal, no exudate, no injection, Sclera: no appreciated abnormality, Lids and lashes: appear normal, bilaterally. 00:42 ENT: External ear(s): are unremarkable, Ear canal(s): are normal, clear, TM's: dullness, bilaterally, Nose: is normal, Mouth: Lips: moist, Oral mucosa: pink and intact, moist, Posterior pharynx: Airway: no evidence of obstruction, patent, Tonsils: are normal in appearance, swelling, is not appreciated, erythema, is not appreciated, exudate, is not appreciated, Dental exam: abscess, is not appreciated, dental caries, that is mild, diffusely, gum swelling, not appreciated, pain, that is mild, specifically in the upper right second molar (#2) and upper right first molar (#3), Voice: is normal. 00:42 Neck: ROM/movement: is normal, is supple, without pain, no range of motions limitations, Lymph nodes: no appreciated lymphadenopathy. 00:42 Chest/axilla: Inspection: normal. 00:42 Cardiovascular: Rate: normal. 00:42 Respiratory: the patient does not display signs of respiratory distress, Respirations: normal, no use of accessory muscles, no retractions, labored breathing, is not present. Vital Signs: 00:08 BP 147 / 83; Pulse 71; Resp 18; Temp 98.1(TE); Pulse Ox 99% on R/A; Weight 127.01 kg lp1 (R); Height 5 ft. 2 in. (157.48 cm); Pain 8/10; 00:08 Body Mass Index 51.21 (127.01 kg, 157.48 cm) lp1 MDM: 00:16 Patient medically screened. cp 00:45 Differential diagnosis: dental caries, gingivitis, dental abscess, pericoronitis, cp aphthous ulcers, acute necrotizing ulcerative gingivitis, gingivostomatitis. 00:46 Data reviewed: vital signs, nurses notes. cp 00:46 Counseling: I had a detailed discussion with the patient and/or guardian regarding: the cp historical points, exam findings, and any diagnostic results supporting the discharge/admit diagnosis, the need for outpatient follow up, for definitive care, a dentist, to return to the emergency department if symptoms worsen or persist or if there are any questions or concerns that arise at home. Administered Medications: 01:04 Drug: Augmentin (Amoxicillin-Clavulanate) 875 mg Route: PO; kd3 01:20 Follow up: Response: No adverse reaction kd3 01:04 Drug: Ibuprofen 800 mg Route: PO; kd3 01:20 Follow up: Response: No adverse reaction kd3 Disposition Summary: 12/19/21 00:46 Discharge Ordered Location: Home cp Problem: new cp Symptoms: have improved cp Condition: Stable cp Diagnosis - Disorder of teeth and supporting structures, unspecified cp Followup: cp - With: Private Physician - When: 2 - 3 days - Reason: Recheck today's complaints Discharge Instructions: - Discharge Summary Sheet cp - Dental Pain cp Forms: - Medication Reconciliation Form cp - Thank You Letter cp - Antibiotic Education cp - Prescription Opioid Use cp Prescriptions: - Augmentin 875-125 mg Oral Tablet - take 1 tablet by ORAL route every 12 hours for 10 days; 20 tablet; Refills: 0, cp Product Selection Permitted - Ibuprofen 800 mg Oral Tablet - take 1 tablet by ORAL route every 8 hours As needed take with food; 30 tablet; cp Refills: 0, Product Selection Permitted Addendum: 12/24/2021 01:00 Co-signature as Attending Physician, Arturo Godoy MD. m Signatures: Sophia Beasley RN RN lp1 Mynor Peña PA PA cp Arturo Godoy MD MD mh7 Corry Chou RN RN kd3 Corrections: (The following items were deleted from the chart) 12/19 22:26 12/18 20:35 This 46 yrs old Black Male presents to ER via Ambulatory with complaints of cp Jaw Pain. cp
--- NOTE | 2021-12-19 00:46 | ER ---
Nurse's Notes [facility] Name: Ruben Alamo Age: 46 yrs Sex: Male : 1975 Arrival Date: 12/18/2021 Time: 23:59 Bed 19 Private MD: Diagnosis: Disorder of teeth and supporting structures, unspecified Presentation: 12/19 00:08 Chief complaint: Patient states: Pain to right upper side of mouth, "I have a bad tooth lp1 and I think the nerve is causing me pain"; reports pain radiates across face x2-3 weeks, worsening pain today; Denies swelling or fever. Coronavirus screen: At this time, the client does not indicate any symptoms associated with coronavirus-19. Ebola Screen: No symptoms or risks identified at this time. Initial Sepsis Screen: Does the patient meet any 2 criteria? No. Patient's initial sepsis screen is negative. Does the patient have a suspected source of infection? No. Patient's initial sepsis screen is negative. Risk Assessment: Do you want to hurt yourself or someone else? Patient reports no desire to harm self or others. Onset of symptoms was December 19, 2021. 00:08 Acuity: LIZBETH 4 lp1 00:08 Method Of Arrival: Ambulatory lp1 Triage Assessment: 01:19 General: Appears in no apparent distress. Behavior is calm, cooperative. Pain: kd3 Complains of pain in oral. Historical: - Allergies: 00:09 Iodine; lp1 00:09 SHELLFISH; lp1 - Home Meds: 00:09 hydrocodone-acetaminophen 10-325 mg Oral tab [Active]; lp1 - PMHx: 00:09 Chronic pain; lp1 - PSHx: 00:09 Spinal surgery; lp1 - Immunization history:: Adult Immunizations up to date. - Social history:: Smoking status: Patient denies any tobacco usage or history of. Screenin:19 Abuse screen: Denies threats or abuse. Denies injuries from another. Nutritional kd3 screening: No deficits noted. Tuberculosis screening: No symptoms or risk factors identified. Fall Risk None identified. Vital Signs: 00:08 BP 147 / 83; Pulse 71; Resp 18; Temp 98.1(TE); Pulse Ox 99% on R/A; Weight 127.01 kg lp1 (R); Height 5 ft. 2 in. (157.48 cm); Pain 8/10; 00:08 Body Mass Index 51.21 (127.01 kg, 157.48 cm) lp1 ED Course: 12/18 23:59 Patient arrived in ED. ja2 12/19 00:09 Triage completed. lp1 00:10 Arm band placed on right wrist. lp1 00:12 Corry Chou RN is Primary Nurse. kd3 00:14 Mynor Peña PA is PHCP. cp 00:15 Arturo Godoy MD is Attending Physician. cp 01:20 Patient has correct armband on for positive identification. kd3 01:20 No provider procedures requiring assistance completed. Patient did not have IV access kd3 during this emergency room visit. Administered Medications: 01:04 Drug: Augmentin (Amoxicillin-Clavulanate) 875 mg Route: PO; kd3 01:20 Follow up: Response: No adverse reaction kd3 01:04 Drug: Ibuprofen 800 mg Route: PO; kd3 01:20 Follow up: Response: No adverse reaction kd3 Outcome: 00:46 Discharge ordered by . cp 01:20 Discharged to home ambulatory. kd3 01:20 Condition: stable 01:20 Discharge instructions given to patient, Instructed on discharge instructions, follow up and referral plans. Demonstrated understanding of instructions, follow-up care, medications, Prescriptions given X 2. 01:21 Patient left the ED. kd3 Signatures: Sophia Beasley RN RN lp1 Mynor Peña PA PA cp Alexander, Jessica ja2 Corry Chou RN RN kd3
[2021-12-19] MEDS ORDERED: AMOX/K CLAV 875 MG TAB ONE (00:52)
[2021-12-19] MEDS ORDERED: IBUPROFEN 400 MG TAB ONE (00:53)
[2021-12-19 01:25] VITALS: BP 147/83; TEMP 98.1; O2SAT 99
== END 2021-12-19 01:21 | disposition home or self-care (01) ==
LOC: ER 23:56
DX: K08.89 Other specified disorders of teeth and supporting structures (principal); G89.29 Other chronic pain; Z91.013 Allergy to seafood; Z91.048 Other nonmedicinal substance allergy status
CPT/HCPCS: 99283

== ENCOUNTER 2022-01-06 18:32 | Emergency (ER) | payer SELFPAY ==
--- OUTSIDE RECORDS SUMMARY | 2022-01-06 18:35 | XMS REPORT | Continuity of Care Document ---
:1975 Author Organization [facility] t Address [address] [place] [address] Care Team Providers Name Role Phone ELIJAH [...] Me moria index 03:47:18 l (BMI) Body [place] 45.0-49.9, mass index adult (BMI) 45.0-49.9, adult Active Problem 11/07/2017 [facility] Other Problem Active 2017-11-07 Mem[facility] ia chronic 03:47:18 l pain Other Tavo chronic pain Active Problem 11/07/2017 [facility] Allergies, Adverse Reactions, Alerts Allergy Allergy Status Severity Reaction(s) Onset Inactive Treating Comm ents Source Name Type Date Date Clinician No Known DA Active U 2019-0 [facility] 00:[facility]: [facility] No Known DA Active U 2020-0 [facility]ie 3-05 [facility] 00:00: [facility] 00 [facility] Social History Smoking Status Start Date Stop Date Source Never smoker [facility] (LUF/BLANCA/SA) Medications Ordered Filled Start Stop [...] as needed l 03:47: Tavo 13 Meloxicam 2018-0 Yes Toussaint 1 tablet Memoria 2-14 Irfan l 03:47: [place] 13 Hydrocodone 2018-0 Yes Toussaint 1 tablet Memoria -Acetaminop 2-14 Irfan as needed l hen 03:47: [place] 13 Carisoprodo 2018-0 Yes Toussaint 1 tablet Memoria l 2-14 Irfan as needed l 03:47: Tavo 13 Meloxicam 2018-0 Yes Toussaint 1 tablet Memoria 2-14 Irfan [...] - 00:00: Memoria 00 l (LUF/LI V/SA) Turney 2018-0 Yes Toussaint 1 tablet Enrique elkin 1-15 Irfan as needed l 00:00: Soma 2018-0 Yes Toussaint 1 tablet Memor ia 1-15 Irfan as needed l 00:00: Meloxicam 2018-0 Yes Toussaint 1 tablet Memoria 1-15 Irfan l 00:00: Turney 2018-0 Yes Toussaint 1 tablet Enrique elkin 1-15 Irfan as needed l 00:00: Soma 2018-0 Yes Toussaint 1 tablet Memor ia 1-15 Irfan as needed l 00:00: Meloxicam 2018-0 Yes Toussaint 1 tablet Memoria 1-15 Irfan l 00:00: Turney 2018-0 Yes Toussaint 1 tablet Enrique elkin 1-15 Irfan as needed l 00:00: Soma 2018-0 Yes Toussaint 1 tablet Memor ia 1-15 Irfan as needed l 00:00: Meloxicam 2018-0 Yes Toussaint 1 tablet Memoria 1-15 Irfan l 00:00: Vital Signs Vital Name Observation Time Observation Value Comments Source [facility] 2017-10-25 15:00[facility]00 [facility] Height 2017-10-25 15:00:00 [facility] Temperature Oral (F) 2017-10-25 15:00:00 97.8 F [facility] Heart Rate 2017-10-25 15:00:00 [facility] Tavo Diastolic (mm Hg) 2017-10-25 15:00:00 [facility] Tavo Systolic (mm Hg) 2017-10-25 15:00:00 Enrique rial [place] Body Temperature 2017-10-21 12:00:00 97.5 F [facility] (LUF/BLANCA/SA) Respiratory Rate 2017-10-21 12:00:00 20 /min [facility] (LUF/BLANCA/SA) O2% BldC Oximetry 2017-10-21 12:00:00 98 % [facility] (LUF/BLANCA/SA) BP Systolic 2017-10-21 12:00:00 132 mm[Hg] [facility] (LUF/BLANCA/SA) BP Diastolic 2017-10-21 12:00:00 78 mm[Hg] [facility] (LUF/BLACNA/SA) Height 2017-10-21 12:00:00 64 in [facility] (LUF/BLANCA/SA) Weight Measured 2017-10-21 12:00:00 282.19 lbs [facility] (LUF/BLANCA/SA) BMI (Body Mass Index) 2017-10-21 12:00:00 48.7 [facility] (LUF/BLANCA/SA) Weight 2017-10-08 15:45:00 [facility] Height 2017-10-08 15:45:00 [facility] [place] Temperature Oral (F) 2017-10-08 15:45:00 96.8 F [facility] Tavo Heart Rate 2017-10-08 15:45:00 [facility] [place] Diastolic (mm Hg) 2017-10-08 15:45:00 Mem [facility] [place] Systolic (mm Hg) 2017-10-08 15:45:00 Enrique ria [place] Procedures This patient has no known procedures. Encounters Start End Encounter Admission Attending Care Care Encounter Source Date/Time Date/Time Type Type Clinicians Facility Department ID 2021-06-20 Outpatient [id number] Memoria 14:21:52 [id number] [place] [id number] 2021-06-20 Outpatient [id number] Memoria 14:21:45 [id number] [facility] [id number] 2021-05-30 Outpatient [id number] Memoria 15:44:20 [id number] Tavo [id number] 2020-01-20 Inpatient [facility] [id number] [facility] 15:25:00 [id number] [facility] 2019-12-16 Inpatient [facility] [id number] [facility] 17:49:00 [id number] [facility] 2019-12-12 Inpatient [facility] [id number] [facility] 08:32:00 [id number] [facility] 2019-11-27 Inpatient [facility] [id number] [facility] 07:33:00 [id number] [facility] 2021-09-14 2021-09-14 Outpatient FERGUSON_JO [facility] [id number] [place] 02:13:00 02:13[place] [id number] [facility] 2021-09-08 2021-09-08 Outpatient [facility]ERGUSON_[facility] [id number] [place] 02:19:00 02:19:[place] [id number] [facility] 2017-10-21 2017-10-21 [facility] [id number] [facility] 11:51[facility]00 14:48:00 [facility], [address], (LUF[place] [address] Results Test Description Test Time Test Comments Results Result [facility] e Comments - CT HEAD/BRAIN 2019-12-16 Patient Name: W/O CONT 18:19:00 VIMAL BARROSO Unit No: [id number] EXAMS: CPT CODE: [id number] CT HEAD/BRAIN W/O CONT 99643 CLINICAL INFORMATION: Moderate frontal headaches. Coughing. Dictation [...] Date/Time: 12/16/2019 (1818) Technologist: Ibis Mata - Agency CTDI: 45.04 DLP: 757.79 Trnscrpt: 12/16/2019 (1818) KirtAGV LORETA Lopez NAME: VIMAL BARROSO [address] [place] [address] PHYS: Germania Isaacs [place] [address] : 1975 AGE: 44 SEX: M LOC: B.ERS PHONE #: [phone] EXAM DATE: 12/16/2019 STATUS: PRE ER FAX #: [phone] RAD #: D/C DT PAGE 1 Signed Report Patient Name: VIMAL BARROSO Unit No: [id number] EXAMS: CPT CODE: [id number] CT HEAD/BRAIN W/O CONT 22608 <Continued> Orig Print D/T: S: 12/16/2019 (1821) LORETA Lopez NAME: VIMAL BARROSO [address] [place] [address] PHYS: SAADIAGermania Cates [place] [address] : 1975 AGE: 44 SEX: M LOC: B.ERS PHONE #: [phone] EXAM DATE: 12/16/2019 STATUS: PRE ER FAX #: [phone] RAD #: D/C DT PAGE 2 Signed Report - XR CHEST 2 V 2019-12-12 FAX: Germania Engel 09:11:00 [employer] [phone] [place]: St: REG Patient Name: VIMAL BARROSO Unit No: [id number] EXAMS: CPT CODE: [id number] XR CHEST 2 V 11312 - XR CHEST 2 V LOCATION: T18 [...] By: Joanna Orig Print D/T: S: 12/12/2019 (0914) LORETA Lopez NAME: VIMAL BARROSO [address] [place] [address] PHYS: [place] [address] : 1975 AGE: 44 SEX: M LOC: EMILY PHONE #: [phone] EXAM DATE: 12/12/2019 STATUS: REG ER FAX #: [phone] RAD NO: DC Dt: PAGE 1 Signed Report SPINE LUMBAR SACR 2017-04-08 [facility] 13:37:[address] [id number] IMAGING REPORTPatient Name: VIMAL BARROSODate of Service: [id number]: 39 Sex: M Order #: [id number] [facility]: [facility]: 1975 X-Ray Number: [id number] Record Number: [id number] Hospital Number: [id number] Physician: Agatha CROW Physician: RUBY TREVIÑO, 04/08/2017 [...]
--- NOTE | 2022-01-06 19:24 | RAD REPORT ---
EXAM DESCRIPTION: US - Extremity Venous Uni Ltd - 01/06/2022 7:17 pm CLINICAL HISTORY: SWELLING Leg swelling and edema. COMPARISON: No comparisons FINDINGS: Right lower extremity venous system was interrogated with Doppler technique. Normal flow, compressibility and augmentation was noted. There is no DVT present. IMPRESSION: No evidence of right lower extremity deep venous thrombosis.
--- NOTE | 2022-01-06 19:32 | EDPHYS ---
Physician Documentation [facility] Name: Ruben Alamo Age: 46 yrs Sex: Male : 1975 Arrival Date: 01/06/2022 Time: 18:33 Bed Treatment Private MD: ED Physician Tristin Lopez HPI: 01/06 18:45 This 46 yrs old Black Male presents to ER via Unassigned with complaints of Insect Bite.ms3 18:45 The patient presents with swelling, Ulceration draining. The complaints affect the ms3 Right lower leg. Context:. Onset: The symptoms/episode began/occurred 3 day(s) ago. Modifying factors: The symptoms are alleviated by nothing. the symptoms are aggravated by nothing. Associated signs and symptoms: The patient has no apparent associated signs or symptoms. 46-year-old male with no past medical history presents for right lower extremity swelling with anterior abrasion/ulceration with drainage. Patient denies pain. Patient denies alleviating or inciting factors. Patient denies shortness of breath, chest pain, fevers, chills. Historical: - Allergies: 18:47 Iodine; ab2 18:47 SHELLFISH; ab2 - PMHx: 18:47 Chronic pain; ab2 - PSHx: 18:47 Spinal surgery; ab2 - Immunization history:: Adult Immunizations up to date. - Social history:: Smoking status: Patient denies any tobacco usage or history of. ROS: 18:45 Constitutional: Negative for fever, and chills. Eyes: Negative for injury, pain, ms3 redness, and discharge, Neck: Negative for injury, pain, and swelling, Cardiovascular: Negative for chest pain, and palpitations. Respiratory: Negative for shortness of breath, cough, wheezing, and pleuritic chest pain, Abdomen/GI: Negative for abdominal pain, nausea, vomiting, diarrhea, and constipation, Neuro: Negative for headache, weakness, numbness, tingling. Psych: Negative for depression, anxiety, suicide ideation, homicidal ideation, and hallucinations. 18:45 MS/extremity: Positive for swelling, of the Right lower leg. 18:45 Skin: Positive for ulceration, Negative for erythema. Exam: 18:45 Constitutional: This is a well developed, well nourished patient who is awake, alert, ms3 and in no acute distress. Eyes: Pupils equal round and reactive to light, extra-ocular motions intact. Lids and lashes normal. Conjunctiva and sclera are non-icteric and not injected. Periorbital areas with no swelling, redness, or edema. Neck: Trachea midline, no cervical lymphadenopathy. Supple, full range of motion without nuchal rigidity, or vertebral point tenderness. No Meningismus. Chest/axilla: Normal chest wall appearance and motion. Nontender with no deformity. Cardiovascular: Regular rate and rhythm with a normal S1 and S2. No gallops, murmurs, or rubs. Normal PMI, no JVD. No pulse deficits. Respiratory: Lungs have equal breath sounds bilaterally, clear to auscultation and percussion. No rales, rhonchi or wheezes noted. No increased work of breathing, no retractions or nasal flaring. Abdomen/GI: Soft, non-tender, with normal bowel sounds. No distension or tympany. No guarding or rebound. No evidence of tenderness throughout. 18:45 Musculoskeletal/extremity: Extremities: all appear grossly normal, with no appreciated pain with palpation, ROM: no acute changes, Circulation is intact in all extremities. Sensation intact. Compartment Syndrome exam of affected extremity: no pain, no numbness, no tingling, Swelling of RLE without tenderness or pitting edema. 18:45 Skin: lesion(s), noted, and can be described as ulcerated, located on the right leg, 2 cm ulceration/ abrasion right anterior lower leg with serosanguinous drainage. Vital Signs: 18:45 BP 169 / 89; Pulse 60; Resp 19; Temp 98.2; Pulse Ox 99% ; Weight 131.54 kg; Height 5 ab2 ft. 4 in. (162.56 cm); Pain 5/10; 18:45 Body Mass Index 49.78 (131.54 kg, 162.56 cm) ab2 MDM: 18:44 Patient medically screened. ms3 18:45 Differential diagnosis: abrasion, DVT vs Cellulitis. Transition of care: After a detail ms3 discussion of the patient's case, care is transferred to Tristin Lopez MD. 19:29 Data reviewed: vital signs, nurses notes, radiologic studies, ultrasound, and as a rn result, I will discharge patient. Counseling: I had a detailed discussion with the patient and/or guardian regarding: the historical points, exam findings, and any diagnostic results supporting the discharge/admit diagnosis, radiology results, the need for outpatient follow up, to return to the emergency department if symptoms worsen or persist or if there are any questions or concerns that arise at home. Medical screen evaluation completed. [facility] condition absent. Response to treatment: the patient's symptoms have mildly improved after treatment, and as a result, I will discharge patient. Special discussion: I discussed with the patient/guardian in detail that at this point there is no indication for admission to the hospital. It is understood, however, that if the symptoms persist or worsen the patient needs to return immediately for re-evaluation. ED course: Pt signed out to me by Dr. Vegas, pending u/s, which is negative, will dc home with abx. Return precautions given and understood. . 01/06 18:45 Order name: Extremity Venous Uni Ltd ; Complete Time: 19:26 ms3 Administered Medications: No medications were administered Disposition Summary: 01/06/22 19:32 Discharge Ordered Location: Home rn Problem: new rn Symptoms: have improved rn Condition: Stable rn Diagnosis - Cellulitis of right lower limb rn Followup: rn - With: Private Physician - When: 2 - 3 days - Reason: Recheck today's complaints, Re-evaluation by your physician Discharge Instructions: - Discharge Summary Sheet rn - Cellulitis, Adult rn Forms: - Medication Reconciliation Form rn - Thank You Letter rn - Antibiotic broomcorn thresher - Prescription Opioid Use rn - Work release form cs9 Prescriptions: - Bactrim DS 800-160 mg Oral Tablet - take 1 tablet by ORAL route every 12 hours for 10 days; 20 tablet; Refills: 0, rn Product Selection Permitted Signatures: Dispatcher [employer] EDTristin Bishop MD MD rn Sims, Marcus, DO DO ms3 Khadar Doyle ab2
--- NOTE | 2022-01-06 19:32 | ER ---
Nurse's Notes [facility] Name: Ruben Alamo Age: 46 yrs Sex: Male : 1975 Arrival Date: 01/06/2022 Time: 18:33 Bed Treatment Private MD: Diagnosis: Cellulitis of right lower limb Presentation: 01/06 18:45 Chief complaint: Patient states: "I dont know if its a bite or not but my right leg has ab2 been swollen for 2 days. There is a small hole and its draining." Pt denies any pain. Pt's right lower leg is swollen and warm to touch. Coronavirus screen: Vaccine status: Patient reports receiving the 2nd dose of the covid vaccine. Client denies travel out of the [place] in the last 14 days. At this time, the client does not indicate any symptoms associated with coronavirus-19. Ebola Screen: Patient negative for fever greater than or equal to 101.5 degrees Fahrenheit, and additional compatible Ebola Virus Disease symptoms Patient denies exposure to infectious person. Patient denies travel to an Ebola-affected area in the 21 days before illness onset. No symptoms or risks identified at this time. Initial Sepsis Screen: Does the patient meet any 2 criteria? No. Patient's initial sepsis screen is negative. Does the patient have a suspected source of infection? No. Patient's initial sepsis screen is negative. Risk Assessment: Do you want to hurt yourself or someone else? Patient reports no desire to harm self or others. Onset of symptoms is unknown. 18:45 Method Of Arrival: Ambulatory ab2 18:45 Acuity: LIZBETH 4 ab2 Triage Assessment: 18:47 General: Appears in no apparent distress. uncomfortable, Behavior is calm, cooperative, ab2 appropriate for age. Pain: Complains of pain in right leg. Neuro: Level of Consciousness is awake, alert, obeys commands, Oriented to person, place, time, situation, Appropriate for age Finance Attorney are equal bilaterally Moves all extremities. Gait is steady, Speech is normal, Facial symmetry appears normal. Respiratory: Airway is patent Respiratory effort is even, unlabored, Respiratory pattern is regular, symmetrical. GI: No deficits noted. No signs and/or symptoms were reported involving the gastrointestinal system. Derm: Skin is red, Skin temperature is warm Wound noted right leg. Historical: - Allergies: 18:47 Iodine; ab2 18:47 SHELLFISH; ab2 - PMHx: 18:47 Chronic pain; ab2 - PSHx: 18:47 Spinal surgery; ab2 - Immunization history:: Adult Immunizations up to date. - Social history:: Smoking status: Patient denies any tobacco usage or history of. Screenin:50 Abuse screen: Denies threats or abuse. Nutritional screening: No deficits noted. ll3 Tuberculosis screening: No symptoms or risk factors identified. Fall Risk None identified. Vital Signs: 18:45 BP 169 / 89; Pulse 60; Resp 19; Temp 98.2; Pulse Ox 99% ; Weight 131.54 kg; Height 5 ab2 ft. 4 in. (162.56 cm); Pain 5/10; 18:45 Body Mass Index 49.78 (131.54 kg, 162.56 cm) ab2 ED Course: 18:33 Patient arrived in ED. ja2 18:40 Tip Vegas DO is Attending Physician. ms3 18:47 Triage completed. ab2 18:47 Arm band placed on left wrist. ab2 19:19 Attending Physician role handed off by Tip Vegas DO rn 19:19 Tristin Lopez MD is Attending Physician. rn 19:19 Extremity Venous Uni Ltd US In Process Unspecified. EDMS 19:50 Patient has correct armband on for positive identification. Bed in low position. Call ll3 light in reach. Side rails up X 1. 19:50 No provider procedures requiring assistance completed. Patient did not have IV access ll3 during this emergency room visit. Administered Medications: No medications were administered Outcome: 19:32 Discharge ordered by . rn 19:50 Discharged to home ambulatory. ll3 19:50 Condition: stable 19:50 Discharge instructions given to patient, Instructed on discharge instructions, follow up and referral plans. medication usage, Demonstrated understanding of instructions, follow-up care, medications, Prescriptions given X 1. 19:50 Patient left the ED. ll3 Signatures: Dispatcher [employer] EDMS Tristin Lopez MD MD rn Sims, Marcus, DO DO ms3 Sultana Feldman ja2 Merle Dmaon RN RN ll3 Khadar Doyle ab2
[2022-01-06 20:22] VITALS: BP 169/89; TEMP 98.2; O2SAT 99
== END 2022-01-06 19:50 | disposition home or self-care (01) ==
LOC: ER 18:32
DX: L03.115 Cellulitis of right lower limb (principal); Z91.013 Allergy to seafood; Z91.048 Other nonmedicinal substance allergy status
CPT/HCPCS: 93971; 99283

== ENCOUNTER 2022-02-26 21:32 | Emergency (ER) | payer SELFPAY ==
--- OUTSIDE RECORDS SUMMARY | 2022-02-26 21:35 | XMS REPORT | Continuity of Care Document ---
:1975 Author Organization [facility] t Address [address] [place] [address] Care Team Providers Name Role Phone ELIJAH [...] Backache Backache Problem [facility] (LUF/LI V/SA) Lumbago Problem Active 2017-11-07 Enrique elkin with 03:47:18 l sciatica, Lumbago Herm marcus left side with sciatica, left side Active Problem 11/07/2017 [facility] Body mass Problem Active 2017-11-07 Me moria index 03:47:18 l (BMI) Body Tavo 45.0-49.9, mass index adult (BMI) 45.0-49.9, adult Active Problem 11/07/2017 [facility] Other Problem Active 2017-11-07 Memor ia chronic 03:47:18 l pain Other Tavo chronic pain Active Problem 11/07/2017 [facility] Allergies, Adverse Reactions, Alerts Allergy Allergy Status Severity Reaction(s) Onset Inactive Treating Comm ents Source Name Type Date Date Clinician No Known DA Active U 0 [facility] [place] [facility] No Known DA Active U 2019-0 [facility]05 [place] [facility] 00[facility]: [facility] 00 [facility] Social History Smoking Status Start Date Stop Date Source Never smoker [facility] (LUF/BLANCA/SA) Medications Ordered Filled Start Stop Current Ordering Indication Dosage Frequency Signature Comments Components Source Medication Medication Date Date Medication? Clinician (SIG) Name Name Carisoprodo Yes Toussaint 1 tablet Memoria l 2-14 Irfan as needed l 03:47: Tavo 13 Meloxicam 0 Yes Toussaint 1 tablet Memoria 2-14 Irfan l 03:47: Tavo 13 Hydrocodone 0 Yes Toussaint 1 tablet Memoria -Acetaminop 2-14 Irfan as needed l hen 03:47: Tavo 13 Carisoprodo 2017-0 Yes Toussaint 1 tablet Memoria l 2-14 Irfan as needed l 03:47: Tavo 13 Meloxicam 2017-0 Yes Toussaint 1 tablet Memoria 2-14 Irfan l 03:47: Tavo 13 Hydrocodone 0 Yes Toussaint 1 tablet Memoria -Acetaminop 2-14 Irfan as needed l hen 03:47: Tavo 13 Carisoprodo 0 Yes Toussaint 1 tablet Memoria l 2-14 Irfan as needed l 03:47: Tavo 13 Meloxicam 2017-0 Yes Toussaint 1 tablet Memoria 2-14 Irfan l 03:47: Tavo 13 Hydrocodone 2017-0 Yes Toussaint 1 tablet Memoria -Acetaminop 2-14 Irfan as needed l hen 03:47: Tavo 13 Acetaminoph 2017-0 Yes Toussaint 1 tablet Memoria en-Codeine 2-01 Irfan as needed l #3 00:00: Acetaminoph 2018-0 Yes Toussaint 1 tablet Memoria en-Codeine 2-01 Irfan as needed l #3 00:00: Acetaminoph 2018-0 Yes Toussaint 1 tablet Memoria en-Codeine 2-01 Irfan as needed l #3 00:00: Prednisone Prednisone 2018-0 Yes 60mg QD [facility] l (LUF/LI V/SA) Trinidad 2018-0 Yes Toussaint 1 tablet Enrique elkin 1-15 Irfan as needed l 00:00: Soma 2018-0 Yes Toussaint 1 tablet Memor ia 1-15 Irfan as needed l 00:00: Meloxicam 2018-0 Yes Toussaint 1 tablet Memoria 1-15 Irfan l 00:00: Trinidad 2018-0 Yes Toussaint 1 tablet Enrique elkin 1-15 Irfan as needed l 00:00: Soma 2018-0 Yes Toussaint 1 tablet Memor ia 1-15 Irfan as needed l 00:00: Meloxicam 2018-0 Yes Toussaint 1 tablet Memoria 1-15 Irfan l 00:00: Trinidad 2018-0 Yes Toussaint 1 tablet Enrique elkin 1-15 Irfan as needed l 00:00: Soma 2018-0 Yes Toussaint 1 tablet Memor ia 1-15 Irfan as needed l 00:00: Meloxicam 2018-0 Yes Toussaint 1 tablet Memoria 1-15 Irfan l 00:00: Vital Signs Vital Name Observation Time Observation Value Comments Source [facility] 2017-10-25 15:[facility] Temperature Oral (F) 2017-10-25 15:00:00 97.8 F [facility] Heart Rate 2017-10-25 15:00:00 [facility] Tavo Diastolic (mm Hg) 2017-10-25 15:00:00 [facility] Tavo Systolic (mm Hg) 2017-10-25 15:00:00 Enrique rial Tavo Body Temperature 2017-10-21 12:00:00 97.5 F [facility] (LUF/BLANCA/SA) Respiratory Rate 2017-10-21 12:00:00 20 /min [facility] (F/BLANCA/SA) O2% BldC Oximetry 2017-10-21 12:00:00 98 % [facility] (LUF/BLANCA/SA) BP Systolic 2017-10-21 12:00:00 132 mm[Hg] [facility] (LUF/BLANCA/SA) BP Diastolic 2017-10-21 12:00:00 78 mm[Hg] [facility] (LUF/BLANCA/SA) Height 2017-10-21 12:00:00 64 in [facility] (LUF/BLANCA/SA) Weight Measured 2017-10-21 12:00:00 282.19 lbs [facility] (LUF/BLANCA/SA) BMI (Body Mass Index) 2017-10-21 12:00:00 48.7 [facility] (F/BLANCA/SA) Weight 2017-10-08 15:45:00 [facility] Tavo Height 2017-10-08 15:45:00 [facility] Tavo Temperature Oral (F) 2017-10-08 15:45:00 96.8 F [facility] Tavo Heart Rate 2017-10-08 15:45:00 [facility] Diastolic (mm Hg) 2017-10-08 15:45:00 [facility] [place] Sy[facility] (mm Hg) 2017-10-08 15:45:00 Enrique rial Tavo Procedures This patient has no known procedures. Encounters Start End Encounter Admission Attending Care Care Encounter Source Date/Time Date/Time Type Type Clinicians Facility Department ID 2021-06-20 Outpatient [id number] Memoria 14:21:52 [id number] Tavo [id number] 2021-06-20 Outpatient [id number] Memoria 14:21:45 [id number] Tavo [id number] 2021-05-30 Outpatient [id number] [facility] 15:44:20 [id number] Tavo [id number] 2020-01-20 Inpatient [facility] [id number] [facility] 15:25:00 [id number] [facility] 2019-12-16 Inpatient [facility] [id number] [facility] 17:49:00 [id number] [facility] 2019-12-12 Inpatient [facility] [id number] [facility] 08:32:00 [id number] [facility] 2019-11-27 Inpatient [facility] [id number] [id number] 07:33:00 [id number] [facility] 2021-09-14 2021-09-14 Outpatient [facility]ON[facility] [id number] [place] 02:13:00 02:13[place] [id number] [facility] 2021-09-08 2021-09-08 Outpatient FERGUSON[facility]JO [facility] [id number] [place] 02:19:00 02:19:[place] [id number] [facility] 2017-10-21 2017-10-21 PAIN IN [facility] [id number] [facility] 11:[facility] 14:48[facility]00 [facility], [address], (LUF/CAR[place] V/[place] [address] Results Test Description Test Time Test Comments Results Result [facility] gena Comments - CT HEAD/BRAIN 2019-12-16 Patient Name: W/O CONT 18:19:00 VIMAL BARROSO Unit No: [id number] EXAMS: CPT CODE: [id number] CT HEAD/BRAIN W/O CONT [id number] CLINICAL INFORMATION: Moderate frontal headaches. Coughing. Dictation [...] no mass or acute event identified. at 1818 Reported and signed by: Deepak Tee MD CC: Germania Engel NP Dictated Date/Time: 12/16/2019 (1818) Technologist: Ibis Mata - Agency CTDI: 45.04 DLP: 757.79 Trnscrpt: 12/16/2019 (1818) KirtAGV LORETA Lopez NAME: VIMAL BARROSO [address] [place] [address] PHYS: Germania Isaacs [place] [address] : 1975 AGE: 44 SEX: M LOC: B.ERS PHONE #: [phone] EXAM DATE: 12/16/2019 STATUS: PRE ER FAX #: [phone] RAD #: D/C DT PAGE 1 Signed Report Patient Name: VIMAL BARROSO Unit No: [id number] EXAMS: CPT CODE: [id number] CT HEAD/BRAIN W/O CONT [id number] <Continued> Orig Print D/T: S: 12/16/2019 (1821) LORETA Lopez NAME: VIMAL BARROSO [address] [place] [address] PHYS: SAADIASERENITY Sam Germania Engel [place] [address] : 1975 AGE: 44 SEX: M LOC: B.ERS PHONE #: [phone] EXAM DATE: 12/16/2019 STATUS: PRE ER FAX #: [phone] RAD #: D/C DT PAGE 2 Signed Report - XR CHEST 2 V 2019-12-12 FAX: Germania Engel 09:11:00 BRASS PICKLER [phone] [place]: St: REG Patient Name: VIMAL BARROSO Unit No: [id number] EXAMS: CPT CODE: [id number] XR CHEST 2 V [id number] - XR CHEST 2 V LOCATION: T18 INDICATION:Cough The lungs are well expanded and free of infiltrates. The costophrenic recesses are sharp without effusion. The heart, mediastinum and bony structures are within normal limits. Cervical spine fusion plate noted. IMPRESSION: No active disease. at 0911 Reported and signed by: Zach Rubi D.O. CC: Germania Engel BRASS PICKLER Dictated Date/Time: 12/12/2019 (910)Technologist: Shannan Schmitz Transcribed Date/Time: 12/12/2019 (910) By: Joanna Orig Print D/T: S: 12/12/2019 (913) LORETA Lopez NAME: VIMAL BARROSO [address] [place] [address] PHYS: Germania Isaacs NP [place], [place] [address] : 1975 AGE: 44 SEX: M LOC: EMILY PHONE #: [phone] EXAM DATE: 12/12/2019 STATUS: REG ER FAX #: [phone] RAD NO: DC Dt: PAGE 1 Signed Report SPINE LUMBAR SACR 2017-04-08 [facility] 13:37:[address] [id number] IMAGING REPORTPatient Name: VIMAL BARROSODate of Service: [id number]: 39 Sex: M Order #: [id number] Room: CCSDOB: 1975 X-Ray Number: [id number] Record Number: [id number] Hospital Number: [id number] Physician: Agatha CROW Physician: RUBY TREVIÑO, 04/08/2017 [...]
--- NOTE | 2022-02-27 00:15 | ER ---
Nurse's Notes [facility] Name: Ruben Alamo Age: 46 yrs Sex: Male : 1975 Arrival Date: 02/26/2022 Time: 21:35 Bed 2 Private MD: Diagnosis: Cellulitis of other parts of limb Presentation: 02/26 21:49 Chief complaint: Patient states: "My right leg has been swelling. About a month a go I as6 was here for the same thing, they gave be some antibiotics and it got better but now the swelling is back". Coronavirus screen: At this time, the client does not indicate any symptoms associated with coronavirus-19. Ebola Screen: No symptoms or risks identified at this time. Initial Sepsis Screen: Does the patient meet any 2 criteria? No. Patient's initial sepsis screen is negative. Does the patient have a suspected source of infection? No. Patient's initial sepsis screen is negative. Risk Assessment: Do you want to hurt yourself or someone else? Patient reports no desire to harm self or others. Onset of symptoms was February 26, 2022. 21:49 Method Of Arrival: Ambulatory as6 21:49 Acuity: LIZBETH 3 as6 Historical: - Allergies: 21:52 Iodine; as6 21:52 SHELLFISH; as6 - Home Meds: 21:52 hydrocodone-acetaminophen 10-325 mg Oral tab [Active]; as6 - PMHx: 21:52 Chronic pain; as6 - PSHx: 21:52 Spinal surgery; as6 - Immunization history:: Client reports receiving the 2nd dose of the Covid vaccine, pfizer . - Social history:: Smoking status: Patient denies any tobacco usage or history of. Screenin:13 Abuse screen: Denies threats or abuse. Denies injuries from another. Nutritional kd3 screening: No deficits noted. Tuberculosis screening: No symptoms or risk factors identified. Fall Risk None identified. Assessment: 23:12 General: Appears in no apparent distress. Behavior is calm, cooperative. Pain: kd3 Complains of pain in right leg. Neuro: Level of Consciousness is awake, alert, obeys commands, Oriented to person, place, time, situation. Respiratory: Airway is patent Trachea midline Respiratory effort is even, unlabored, Respiratory pattern is regular. Vital Signs: 21:49 BP 140 / 84; Pulse 58; Resp 18 S; Temp 97.8(TE); Pulse Ox 96% on R/A; Weight 131.54 kg as6 (R); Height 5 ft. 4 in. (162.56 cm) (R); Pain 5/10; 23:47 BP 133 / 85; Pulse 56; Resp 17; Pulse Ox 98% on R/A; kd3 21:49 Body Mass Index 49.78 (131.54 kg, 162.56 cm) as6 ED Course: 21:35 Patient arrived in ED. ja2 21:50 Tip Vegas DO is Attending Physician. ms3 21:52 Triage completed. as6 21:54 Arm band placed on. as6 22:00 Aaron Barrera, RN is Primary Nurse. ke1 23:13 Patient has correct armband on for positive identification. kd3 23:38 US Extremity Venous Unilateral Ltd In Process Unspecified. EDMS 02/27 00:14 Magnus Fitzpatrick DO is Referral Physician. ms3 00:29 No provider procedures requiring assistance completed. ke1 00:29 Patient did not have IV access during this emergency room visit. ke1 Administered Medications: No medications were administered Medication: 02/26 23:13 VIS not applicable for this client. kd3 Outcome: 02/27 00:14 Discharge ordered by . ms3 00:29 Discharged to home ambulatory. ke1 00:29 Condition: good 00:29 Discharge instructions given to patient. 00:29 Patient left the ED. ke1 Signatures: Dispatcher [employer] EDMS Tip Vegas DO DO ms3 Sultana Feldman ja2 Olayinka Hollis RN RN as6 Corry Chou RN RN kd3 Aaron Barrera RN RN ke1
--- NOTE | 2022-02-27 00:15 | EDPHYS ---
Physician Documentation [facility] Name: Ruben Alamo Age: 46 yrs Sex: Male : 1975 Arrival Date: 02/26/2022 Time: 21:35 Bed 2 Private MD: ED Physician Tip Vegas HPI: 02/26 22:09 This 46 yrs old Black Male presents to ER via Ambulatory with complaints of Leg ms3 Swelling. 22:09 The patient presents with swelling. The complaints affect the Right lower leg swelling. ms3 Context:. Onset: The symptoms/episode began/occurred yesterday. Modifying factors: The symptoms are alleviated by nothing. the symptoms are aggravated by nothing. Associated signs and symptoms: The patient has no apparent associated signs or symptoms. Treatment prior to arrival includes: no previous treatment. The patient has experienced a previous episode, approximately 2 months ago, Given abx and symptoms resolved. Historical: - Allergies: 21:52 Iodine; as6 21:52 SHELLFISH; as6 - Home Meds: 21:52 hydrocodone-acetaminophen 10-325 mg Oral tab [Active]; as6 - PMHx: 21:52 Chronic pain; as6 - PSHx: 21:52 Spinal surgery; as6 - Immunization history:: Client reports receiving the 2nd dose of the Covid vaccine, pfizer . - Social history:: Smoking status: Patient denies any tobacco usage or history of. ROS: 22:09 Constitutional: Negative for fever, and chills. Neck: Negative for injury, pain, and ms3 swelling, Cardiovascular: Negative for chest pain, and palpitations. Respiratory: Negative for shortness of breath, cough, wheezing, and pleuritic chest pain, Abdomen/GI: Negative for abdominal pain, nausea, vomiting, diarrhea, and constipation. 22:09 Neuro: Negative for headache, weakness, numbness, tingling. Psych: Negative for depression, anxiety, suicide ideation, homicidal ideation, and hallucinations. 22:09 MS/extremity: Positive for swelling. Exam: 22:09 Constitutional: This is a well developed, well nourished patient who is awake, alert, ms3 and in no acute distress. Head/Face: Normocephalic, atraumatic. Neck: Trachea midline, no cervical lymphadenopathy. Supple, full range of motion without nuchal rigidity, or vertebral point tenderness. No Meningismus. Chest/axilla: Normal chest wall appearance and motion. Nontender with no deformity. Cardiovascular: Regular rate and rhythm with a normal S1 and S2. No gallops, murmurs, or rubs. Normal PMI, no JVD. No pulse deficits. Respiratory: Lungs have equal breath sounds bilaterally, clear to auscultation and percussion. No rales, rhonchi or wheezes noted. No increased work of breathing, no retractions or nasal flaring. Abdomen/GI: Soft, non-tender, with normal bowel sounds. No distension or tympany. No guarding or rebound. No evidence of tenderness throughout. Skin: Warm, dry with normal turgor. Normal color with no rashes, no lesions, and no evidence of cellulitis. Psych: Awake, alert, with orientation to person, place and time. Behavior, mood, and affect are within normal limits. 22:09 Musculoskeletal/extremity: Extremities: noted in the right leg: pain, swelling. Vital Signs: 21:49 BP 140 / 84; Pulse 58; Resp 18 S; Temp 97.8(TE); Pulse Ox 96% on R/A; Weight 131.54 kg as6 (R); Height 5 ft. 4 in. (162.56 cm) (R); Pain 5/10; 23:47 BP 133 / 85; Pulse 56; Resp 17; Pulse Ox 98% on R/A; kd3 21:49 Body Mass Index 49.78 (131.54 kg, 162.56 cm) as6 MDM: 22:02 Patient medically screened. ms3 22:09 Differential diagnosis: DVT vs Cellulitis vs Venous insufficiency. ms3 06 11:02 Data reviewed: vital signs, nurses notes, radiologic studies, ultrasound, and as a ms3 result, I will discharge patient. Counseling: I had a detailed discussion with the patient and/or guardian regarding: the historical points, exam findings, and any diagnostic results supporting the discharge/admit diagnosis, radiology results, the need for outpatient follow up. ED course: Discussed RLE US and PE findings with patient. Patient to follow up with PMD in 2-3 days. Patient understands/ agrees with plan. All questions answered. Return precautions given to include worsening symptoms, or any other concerns. Patient is improved, in NAD, non-toxic appearing, ambulatory in ED, speaking full sentences.. 02/26 22:11 Order name: Glucose, Ancillary Testing; Complete Time: 22:15 EDMS 02/26 21:55 Order name: US Extremity Venous Unilateral Ltd ms3 Administered Medications: No medications were administered Disposition Summary: 02/27/22 00:14 Discharge Ordered Location: Home ms3 Condition: Stable ms3 Diagnosis - Cellulitis of other parts of limb ms3 Followup: ms3 - With: Magnus Fitzpatrick, DO - When: 2 - 3 days - Reason: Re-evaluation by your physician Discharge Instructions: - Discharge Summary Sheet ms3 - Cellulitis, Adult, [id number] ms3 Forms: - Medication Reconciliation Form ms3 - Thank You Letter ms3 - Antibiotic Education ms3 - Prescription Opioid Use ms3 Prescriptions: - Doxycycline Hyclate 100 mg Oral Tablet - take 1 tablet by ORAL route every 12 hours; 20 tablet; Refills: 0, Product ms3 Selection Permitted Signatures: Dispatcher [employer] EDAR Tip Vegas, DO DO ms3 Olayinka Hollis, RN RN as6
[2022-02-27 00:38] VITALS: TEMP 97.8
[2022-02-27 00:41] VITALS: BP 133/85; O2SAT 98
--- NOTE | 2022-02-28 12:54 | RAD REPORT ---
EXAM DESCRIPTION: US Duplex Right Lower Extremity Veins CLINICAL HISTORY: SWELLING Extremity Venous Uni Ltd TECHNIQUE: Real-time duplex ultrasound scan of the right lower extremity veins integrating B-mode tw o-dimensional vascular structure, Doppler spectral analysis, color flow Doppler imaging and compressi on. COMPARISON: No relevant prior studies available. FINDINGS: Deep veins: Unremarkable. No DVT in the visualized common femoral, femoral, proximal d eep femoral, popliteal or visualized calf veins. The veins demonstrate normal color flow, are luisa lly compressible, with normal phasic flow and/or augmentation response. Superficial veins: Unremarkable. No thrombus in the visualized great saphenous vein. Soft tissues: No acute findings. No popliteal cyst. IMPRESSION: No evidence for deep venous thrombosis within the right lower extremity. Electronically signed by: Dieudonne Bey MD 02/27/2022 12:07 AM CDT Due to temporary technical issues with the PACS/Fluency reporting system, reports are being signed by the in house radiologists without review as a courtesy to insure prompt reporting. The interpreting radiologist is fully responsible for the content of the report.
== END 2022-02-27 00:29 | disposition home or self-care (01) ==
LOC: ER 21:32
DX: L03.115 Cellulitis of right lower limb (principal); G89.29 Other chronic pain; Z91.013 Allergy to seafood; Z91.048 Other nonmedicinal substance allergy status
CPT/HCPCS: 82947; 93971; 99283

== ENCOUNTER 2022-03-24 14:40 | Emergency (ER) | payer SELFPAY ==
[2022-03-24] MEDS ORDERED: ACETAMINOPHEN 325 MG TABLET ONE (15:20)
[2022-03-24] MEDS ORDERED: IBUPROFEN 400 MG TAB ONE (18:24)
--- NOTE | 2022-03-24 18:53 | ER ---
Nurse's Notes [facility] Name: Ruben Alamo Age: 46 yrs Sex: Male : 1975 Arrival Date: 03/24/2022 Time: 14:42 Bed 27 Private MD: Diagnosis: Coronavirus infection, unspecified Presentation: 03/24 14:48 Chief complaint: Patient states: fever, body aches, cough and sore throat since last vg1 night. Denies NVD. Coronavirus screen: Vaccine status: Patient reports receiving the 2nd dose of the covid vaccine. Client denies travel out of the [place] in the last 14 days. Ebola Screen: Patient denies exposure to infectious person. Patient denies travel to an Ebola-affected area in the 21 days before illness onset. Initial Sepsis Screen: Does the patient meet any 2 criteria? Temp <36.0*C (96.8*F)) or > 38.3*C (100.9*F). Yes Does the patient have a suspected source of infection? No. Patient's initial sepsis screen is negative. Risk Assessment: Do you want to hurt yourself or someone else? Patient reports no desire to harm self or others. Onset of symptoms was March 23, 2022. 14:48 Method Of Arrival: Ambulatory vg1 14:48 Acuity: LIZBETH 3 vg1 Triage Assessment: 14:50 General: Appears uncomfortable, Behavior is drowsy. Pain: Complains of pain in vg1 generalize body and throat Pain currently is 7 out of 10 on a pain scale. Respiratory: Airway is patent Respiratory effort is even, unlabored. Historical: - Allergies: 14:50 Iodine; vg1 14:50 SHELLFISH; vg1 - Home Meds: 14:50 hydrocodone-acetaminophen 10-325 mg Oral tab [Active]; vg1 - PMHx: 14:50 Chronic pain; vg1 - PSHx: 14:50 Spinal surgery; vg1 - Immunization history:: Client reports receiving the 2nd dose of the Covid vaccine. - Social history:: Smoking status: Patient denies any tobacco usage or history of. Screenin:53 Abuse screen: Denies threats or abuse. Nutritional screening: No deficits noted. ap3 Tuberculosis screening: No symptoms or risk factors identified. Fall Risk None identified. Assessment: 15:53 General: Appears uncomfortable, Behavior is calm, cooperative. Pain: Complains of pain ap3 in generalized body aches. Neuro: Level of Consciousness is awake, alert, obeys commands, Oriented to person, place, time, situation, Gait is steady. Cardiovascular: Patient's skin is warm and dry. Respiratory: Reports cough that is Airway is patent. 18:17 Reassessment: Patient and/or family updated on plan of care and expected duration. Pain ap3 level reassessed. Patient is alert, oriented x 3, equal unlabored respirations, skin warm/dry/pink. Vital Signs: 14:48 BP 120 / 61; Pulse 98; Resp 16; Temp 103.2(O); Pulse Ox 95% on R/A; Weight 127.01 kg; vg1 Height 5 ft. 4 in. (162.56 cm); Pain 7/10; 15:55 Pulse 87; Temp 100.8(O); Pulse Ox 94% ; ap3 18:39 Temp 98.9; ap3 14:48 Body Mass Index 48.06 (127.01 kg, 162.56 cm) vg1 ED Course: 14:42 Patient arrived in ED. rg4 14:44 [facility] 14:44 Ghassan Short MD is Attending Physician. [facility] 14:50 Triage completed. vg1 14:50 Arm band placed on. vg1 15:09 Janie Savage, ANAHI is Primary Nurse. ap3 15:19 Influenza Screen (a \T\ B) Sent. ap3 15:19 Strep Sent. ap3 15:53 Patient has correct armband on for positive identification. Bed in low position. Call ap3 light in reach. Side rails up X 1. Pulse ox on. NIBP on. Door closed. Noise minimized. 19:02 No provider procedures requiring assistance completed. Patient did not have IV access ap3 during this emergency room visit. Administered Medications: 15:19 Drug: Acetaminophen 650 mg Route: PO; ap3 18:20 Follow up: Response: No adverse reaction ap3 18:20 Drug: Ibuprofen 400 mg Route: PO; ap3 Medication: 19:02 VIS not applicable for this client. ap3 Outcome: 18:53 Discharge ordered by . [facility] 19:02 Discharged to home ambulatory. ap3 19:02 Condition: good 19:02 Discharge instructions given to patient, Instructed on discharge instructions, follow up and referral plans. medication usage, Demonstrated understanding of instructions, follow-up care, medications, Prescriptions given X 1. 19:05 Patient left the ED. ap3 Signatures: Stone Harrison PA PA jmm Garcia, Rubi rg4 Janie Savage RN RN ap3 Radah Victoria RN RN vg1
--- NOTE | 2022-03-24 18:53 | EDPHYS ---
Physician Documentation [facility] Name: Ruben Alamo Age: 46 yrs Sex: Male : 1975 Arrival Date: 03/24/2022 Time: 14:42 Bed 27 Private MD: ED Physician Ghassan Short HPI: 03/24 15:04 This 46 yrs old Black Male presents to ER via Ambulatory with complaints of Doesn't jmm Feel Well. 15:04 The patient or guardian reports cough. Onset: The symptoms/episode began/occurred jmm gradually, 1 day(s) ago. Modifying factors: The symptoms are alleviated by nothing. the symptoms are aggravated by nothing. Associated signs and symptoms: Pertinent positives: fever, sore throat. It is unknown whether or not the patient has had similar symptoms in the past. Historical: - Allergies: 14:50 Iodine; vg1 14:50 SHELLFISH; vg1 - Home Meds: 14:50 hydrocodone-acetaminophen 10-325 mg Oral tab [Active]; vg1 - PMHx: 14:50 Chronic pain; vg1 - PSHx: 14:50 Spinal surgery; vg1 - Immunization history:: Client reports receiving the 2nd dose of the Covid vaccine. - Social history:: Smoking status: Patient denies any tobacco usage or history of. ROS: 15:04 Constitutional: Positive for body aches, chills. jmm 15:04 ENT: Positive for sore throat. 15:04 Respiratory: Positive for cough. 15:04 All other systems are negative. Exam: 15:04 Constitutional: This is a well developed, well nourished patient who is awake, alert, jmm and in no acute distress. Head/Face: atraumatic. Eyes: EOMI, no conjunctival erythema appreciated 15:04 Neck: Trachea midline, Supple Chest/axilla: Normal chest wall appearance and motion. Cardiovascular: Regular rate and rhythm. No edema appreciated Respiratory: Normal respirations, no respiratory distress appreciated Abdomen/GI: Non distended Back: Normal ROM Skin: General appearance color normal MS/ Extremity: Moves all extremities, no obvious deformities appreciated, no edema noted to the lower extremities Neuro: Awake and alert Psych: Behavior is normal, Mood is normal, Patient is cooperative and pleasant 15:04 ENT: Posterior pharynx: erythema, that is mild. Vital Signs: 14:48 BP 120 / 61; Pulse 98; Resp 16; Temp 103.2(O); Pulse Ox 95% on R/A; Weight 127.01 kg; vg1 Height 5 ft. 4 in. (162.56 cm); Pain 7/10; 15:55 Pulse 87; Temp 100.8(O); Pulse Ox 94% ; ap3 18:39 Temp 98.9; ap3 14:48 Body Mass Index 48.06 (127.01 kg, 162.56 cm) vg1 MDM: 15:04 Patient medically screened. [facility] 18:48 Data reviewed: vital signs, nurses notes. Counseling: I had a detailed discussion with [facility] the patient and/or guardian regarding: the historical points, exam findings, and any diagnostic results supporting the discharge/admit diagnosis, the need for outpatient follow up, to return to the emergency department if symptoms worsen or persist or if there are any questions or concerns that arise at home. 03/24 15:05 Order name: SARS-COV-2 RT PCR (Document "Date of Onset" if Symptomatic); Complete Time: [facility] 18:37 03/24 15:05 Order name: Influenza Screen (a \\T\\ B); Complete Time: 16:07 [facility] 03/24 15:06 Order name: Strep; Complete Time: 15:51 [facility] 03/24 15:52 Order name: Throat Culture EDMS Administered Medications: 15:19 Drug: Acetaminophen 650 mg Route: PO; ap3 18:20 Follow up: Response: No adverse reaction ap3 18:20 Drug: Ibuprofen 400 mg Route: PO; ap3 Disposition: 03/25 07:38 Co-signature as Attending Physician, Ghassan Short MD I agree with the assessment and kdr plan of care. Disposition Summary: 03/24/22 18:53 Discharge Ordered Location: Home [facility] Condition: Stable [facility] Diagnosis - Coronavirus infection, unspecified [facility] Followup: [facility] - With: Private Physician - When: 2 - 3 days - Reason: Recheck today's complaints, Continuance of care, Re-evaluation by your physician Discharge Instructions: - Discharge Summary Sheet [facility] - COVID-19 [facility] Forms: - Medication Reconciliation Form [facility] - Thank You Letter [facility] - Antibiotic Education [facility] - Prescription Opioid Use [facility] Prescriptions: - Paxlovid - take 1 application by ORAL route 2 times per day for 5 days; 1 packet; Refills: prince 0, Product Selection Permitted Signatures: Dispatcher [employer] Ghassan Naik MD MD kdr Mickail, Joel, PA PA jmm Prokisch, Amanda, RN RN ap3 Radha Victoria RN RN vg1
[2022-03-24 19:23] VITALS: BP 120/61
[2022-03-24 19:25] VITALS: O2SAT 94
[2022-03-24 19:27] VITALS: TEMP 98.9
== END 2022-03-24 19:05 | disposition home or self-care (01) ==
LOC: ER 14:40
DX: U07.1 COVID-19 (principal); Z91.013 Allergy to seafood; Z91.048 Other nonmedicinal substance allergy status
CPT/HCPCS: 87070; 87081; 87804; 99284; U0003

== ENCOUNTER 2022-03-26 04:02 | Emergency (ER) | payer SELFPAY ==
[2022-03-26] MEDS ORDERED: NA CHLORIDE 0.9% 1,000 ML ONE (04:40)
[2022-03-26] MEDS ORDERED: ASPIRIN 81 MG CHEWABLE TABLET ONE (04:40)
[2022-03-26] MEDS ORDERED: FAMOTIDINE 20 MG/2 ML VIAL IV ONE ×2 (04:40→07:02)
[2022-03-26 05:46] LABS: Absolute Lymphocytes (CBC) 2.1 K/uL (0.7-4.9); Hematocrit 37.7 % (39.6-49.0); Lymphocytes % 33.8 % (15.3-44.8); MCV 89.6 fL (80-100); MPV 9.4 fL (7.6-11.3)
[2022-03-26 05:48] LABS: Protime INR 1.02
[2022-03-26 05:54] LABS: Albumin 3.3 g/dL (3.4-5.0); Bilirubin Direct 0.2 mg/dL (0-0.2); Bilirubin Total 0.9 mg/dL (0.2-1.0); Magnesium 1.9 mg/dL (1.8-2.4); Potassium 3.3 mmol/L (3.5-5.1); Protein, Total 7.5 g/dL (6.4-8.2); Troponin High Sensitivity 12.2 pg/mL (<58.9)
[2022-03-26] MEDS ORDERED: DIPHENHYDRAMINE 50 MG/ML VIAL ONE (07:01)
[2022-03-26] MEDS ORDERED: POTASSIUM 25 MEQ EFFERV TAB ONE (07:01)
[2022-03-26] MEDS ORDERED: METHYLPREDNISOLONE 125 MG INJ ONE (07:01)
[2022-03-26] MEDS ORDERED: AZITHROMYCIN 250 MG TAB ONE (07:03)
--- NOTE | 2022-03-26 07:51 | RAD REPORT ---
EXAM DESCRIPTION: US - Extrem Venous W Compress Sonu - 03/26/2022 7:30 am CLINICAL HISTORY: chest pain COMPARISON: None. TECHNIQUE: Real-time sonographic evaluation of the bilateral lower extremity common femoral, superfi cial femoral, popliteal and posterior tibial veins was performed. FINDINGS: Normal compressibility, flow augmentation, phasic flow and spontaneous flow are identified in the left and right lower extremity common femoral, superficial femoral, popliteal and posterior t ibial veins. No intraluminal filling defects seen. IMPRESSION: No DVT in either lower extremity.
--- NOTE | 2022-03-26 08:00 | RAD REPORT ---
EXAM DESCRIPTION: CT - Chest For Pe Angio - 03/26/2022 7:25 am CLINICAL HISTORY: Chest pain radiating to the left shoulder, COVID positive COMPARISON: Chest Single View dated 03/26/2022; Abdomen Pelvis W Contrast dated 01/10/2019 TECHNIQUE: Dynamically enhanced 3 mm thick images of the chest were obtained during administration o f approximately 150mL Isovue 370 IV contrast. Coronal and oblique MIP reconstruction images were gene rated and reviewed. Exam utilizes a protocol to evaluate the pulmonary arterial tree. All CT scans are performed using dose optimization technique as appropriate and may include automated exposure control or mA/KV adjustment according to patient size. FINDINGS: No pulmonary emboli are identified. The aorta as imaged shows no acute or suspicious finding. No pericardial thickening or effusion. Lung yu are clear. There are no COVID pneumonia findings in the lung parenchyma. No endobronchial lesions are present. There is questionable mild thickening of the lobar bronchi. This is a minimal f inding and can be correlated with any bronchitis or viral infiltrate process. No pleural effusion or pleural thickening. No mediastinal or hilar suspicious masses. No chest wall masses. Small nonspecific axillary lymph nod es are present. No bulky lymphadenopathy. No lytic or blastic bony changes. Mild wedging of the T8 and T9 vertebrae noted with posterior wall h eight preserved. No acute fracture line seen. There are no lytic or blastic bony changes identifiable . Patient has endplate spurring changes in the mid and lower thoracic spine. Slight wedging of T12 no lydia as well. A 2019 CT study showed a similar pattern. IMPRESSION: No pulmonary emboli identified. No COVID-19 pneumonia findings or other acute lung parenchymal process.Minimal bronchial wall thicken ing is questioned and correlation can be made with any bronchitis or viral infectious process. Thoracic spine degenerative changes are present. Slight wedging of the T8, T9 and T12 vertebrae noted not substantially different from 2019. No pathologic bone changes evident.
--- NOTE | 2022-03-26 12:19 | ER ---
Nurse's Notes [facility] Name: Ruben Alamo Age: 46 yrs Sex: Male : 1975 Arrival Date: 03/26/2022 Time: 04:03 Bed 14 Private MD: Rick Linares Diagnosis: Coronavirus infection, unspecified;SARS-associated coronavirus as the cause of diseases classified elsewhere;Obesity, unspecified;Chest pain, unspecified;Hypokalemia Presentation: 03/26 04:24 Chief complaint: Patient states: Sharp CP started 30 mn ago radiating to L shoulder. ke1 Coronavirus screen: Vaccine status: Patient reports receiving the 2nd dose of the covid vaccine. Ebola Screen: No symptoms or risks identified at this time. Initial Sepsis Screen: Does the patient meet any 2 criteria? No. Patient's initial sepsis screen is negative. Does the patient have a suspected source of infection? No. Patient's initial sepsis screen is negative. Risk Assessment: Do you want to hurt yourself or someone else? Patient reports no desire to harm self or others. Onset of symptoms was March 26, 2022 at 03:50. 04:24 Method Of Arrival: Ambulatory ke1 04:24 Acuity: LIZBETH 3 ke1 Triage Assessment: 04:27 General: Appears in no apparent distress. Behavior is appropriate for age. Pain: ke1 Complains of pain in chest. Historical: - Allergies: 04:26 Iodine; ke1 04:26 SHELLFISH; ke1 - PMHx: 04:26 Chronic pain; ke1 - PSHx: 04:26 Spinal surgery; ke1 - Social history:: Smoking status: Patient reports use of chewing tobacco. - Family history:: not pertinent. Screenin:27 Abuse screen: Denies threats or abuse. Nutritional screening: No deficits noted. ke1 Tuberculosis screening: No symptoms or risk factors identified. Fall Risk None identified. Assessment: 06:00 Cardiovascular: Rhythm is sinus bradycardia. ke1 07:05 Reassessment: No changes from previously documented assessment. report received from ll1 overnight houseperson RN. 08:00 Reassessment: No changes from previously documented assessment. Patient and/or family ll1 updated on plan of care and expected duration. Pain level reassessed. Patient is alert, oriented x 3, equal unlabored respirations, skin warm/dry/pink. 09:00 Reassessment: No changes from previously documented assessment. Patient and/or family ll1 updated on plan of care and expected duration. Pain level reassessed. Patient is alert, oriented x 3, equal unlabored respirations, skin warm/dry/pink. 09:50 Reassessment: No changes from previously documented assessment. Patient and/or family ll1 updated on plan of care and expected duration. Pain level reassessed. Patient is alert, oriented x 3, equal unlabored respirations, skin warm/dry/pink. 10:45 Reassessment: No changes from previously documented assessment. ll1 11:45 Reassessment: No changes from previously documented assessment. Patient and/or family ll1 updated on plan of care and expected duration. Pain level reassessed. Refuses to wear BP cuff. 12:26 Reassessment: No changes from previously documented assessment. Patient and/or family ll1 updated on plan of care and expected duration. Pain level reassessed. Patient is alert, oriented x 3, equal unlabored respirations, skin warm/dry/pink. 12:26 Pain: Pain does not radiate. Pain began 2-3 days ago. ll1 Vital Signs: 04:24 BP 126 / 67; Pulse 53; Resp 18; Temp 98.4(O); Pulse Ox 100% ; Weight 127.01 kg; Height ke1 5 ft. 4 in. (162.56 cm); Pain 6/10; 06:00 BP 138 / 79; Pulse 53; Resp 13; Pulse Ox 99% on R/A; ke1 07:00 BP 144 / 98; Pulse 61; Pulse Ox 99% ; ll1 09:00 BP 131 / 79; Pulse 49; Pulse Ox 96% ; ll1 09:00 BP 130 / 81; Pulse 47; Resp 16; Pulse Ox 97% on R/A; ll1 09:47 BP 128 / 80; Pulse 46; Resp 15; Pulse Ox 97% on R/A; ll1 10:15 BP 133 / 85; Pulse 43; Resp 17; Pulse Ox 97% ; ll1 11:00 Pulse 43; Resp 17; Pulse Ox 97% ; ll1 11:54 Pulse 41; Resp 18; Pulse Ox 97% on R/A; ll1 04:24 Body Mass Index 48.06 (127.01 kg, 162.56 cm) ke1 10:15 patient keeps taking BP cuff off. Re applied again. ll1 11:00 Patient removed BP cuff again. ll1 11:54 Refuses BP. Keeps removeing cuff. ll1 Vitals: 09:47 Cardiac Rhythm Assessment Sinus kenn. ll1 11:00 Cardiac Rhythm Assessment Sinus kenn. ll1 11:54 Cardiac Rhythm Assessment Sinus kenn. ll1 ED Course: 04:03 Patient arrived in ED. am2 04:03 Rick Linares MD is Private Physician. am2 04:05 Mynor White MD is Attending Physician. [facility] 04:19 Aaron Barrera, ANAHI is Primary Nurse. ke1 04:26 Triage completed. ke1 04:27 Patient maintains SpO2 saturation greater than 95% on room air. ke1 04:28 Patient has correct armband on for positive identification. Call light in reach. ke1 04:40 XRAY Chest (1 view) In Process Unspecified. EDMS 04:59 EKG done, by ED staff, reviewed by Mynor White MD. mh5 04:59 Placed in gown. Bed in low position. Side rails up X 1. Warm blanket given. Cardiac mh5 monitor on. Pulse ox on. NIBP on. 05:36 Inserted saline lock: 20 gauge in right antecubital area, using aseptic technique. tw5 Blood collected. ultra sound guided. 07:26 CT Chest For PE Angio In Process Unspecified. EDMS 07:31 Extrem Venous W Compression Sonu US In Process Unspecified. EDMS 07:51 Attending Physician role handed off by Mynor White MD kdr 07:51 Ghassan Short MD is Attending Physician. kdr 09:50 No provider procedures requiring assistance completed. ll1 10:15 intact, bleeding controlled, No redness/swelling at site. Patient removed IV on his ll1 own. Catheter intact. No active bleeding noted. 12:19 Rick Linares MD is Referral Physician. kdr 12:19 Gomez Goddard MD is Referral Physician. kdr 12:27 Arm band placed on. ll1 Administered Medications: 04:20 Drug: Aspirin Chewable Tablet 324 mg Route: PO; ke1 07:45 Follow up: Response: No adverse reaction ll1 05:52 Drug: NS 0.9% 1000 ml Route: IV; Rate: 1 bolus; Site: right antecubital; ke1 07:44 Follow up: Response: No adverse reaction; IV Status: Completed infusion; IV Intake: ll1 1000ml 05:59 Drug: Pepcid (famotidine) 20 mg Route: IVP; Site: right antecubital; ke1 07:44 Follow up: Response: No adverse reaction ll1 07:06 Drug: SOLU-Medrol (methylPrednisoLONE) 125 mg Route: IVP; Site: right antecubital; ke1 07:43 Follow up: Response: No adverse reaction ll1 07:06 Drug: Potassium Effervescent Tablet 25 mEq Route: PO; ke1 07:43 Follow up: Response: No adverse reaction ll1 07:06 Drug: Zithromax (azithromycin) 500 mg Route: PO; ke1 07:43 Follow up: Response: No adverse reaction ll1 07:07 Drug: Pepcid (famotidine) 20 mg Route: IVP; Site: right antecubital; ke1 07:44 Follow up: Response: No adverse reaction ll1 07:07 Drug: Benadryl (diphenhydrAMINE) 50 mg Route: IVP; Site: right antecubital; ke1 07:44 Follow up: Response: No adverse reaction ll1 Medication: 09:50 VIS not applicable for this client. ll1 Intake: 07:44 IV: 1000ml; Total: 1000ml. ll1 Outcome: 12:19 Discharge ordered by . kdr 12:26 Discharged to home ambulatory. ll1 12:26 Condition: stable 12:26 Discharge instructions given to patient, Instructed on discharge instructions, follow up and referral plans. medication usage, Demonstrated understanding of instructions, follow-up care, medications, Prescriptions given X 3. 12:27 Patient left the ED. ll1 Signatures: Dispatcher [employer] EDMS Mynor White MD MD cha Rittger, Kevin, MD MD kdr Martinez, Maria 5 Janie Tristan Lynsay, RN RN ll1 Juanita Dobson 5 Aaron Barrera RN RN ke1
--- NOTE | 2022-03-26 12:20 | EDPHYS ---
Physician Documentation [facility] Name: Ruben Alamo Age: 46 yrs Sex: Male : 1975 Arrival Date: 03/26/2022 Time: 04:03 Bed 14 Private MD: Rick Linares ED Physician Ghassan Short HPI: 03/26 06:38 This 46 yrs old Black Male presents to ER via Ambulatory with complaints of Chest Pain, geovanny covid +. 06:38 The patient or guardian reports chest pain that is located primarily in the substernal geovanny area, anterior chest wall, left. Onset: 1 day(s) ago. The pain does not radiate. Associated signs and symptoms: The patient has no apparent associated signs or symptoms. The chest pain is described as tightness. Duration: The patient or guardian reports a single episode, that is now resolved. Modifying factors: The symptoms are alleviated by nothing. the symptoms are aggravated by nothing. Severity of pain: At its worst the pain was mild in the emergency department the pain is unchanged. The patient has not experienced similar symptoms in the past. Historical: - Allergies: 04:26 Iodine; ke1 04:26 SHELLFISH; ke1 - PMHx: 04:26 Chronic pain; ke1 - PSHx: 04:26 Spinal surgery; ke1 - Social history:: Smoking status: Patient reports use of chewing tobacco. - Family history:: not pertinent. ROS: 06:38 Constitutional: Negative for fever, chills, and weight loss, Eyes: Negative for injury, geovanny pain, redness, and discharge, ENT: Negative for injury, pain, and discharge, Neck: Negative for injury, pain, and swelling, Respiratory: Negative for shortness of breath, cough, wheezing, and pleuritic chest pain, Abdomen/GI: Negative for abdominal pain, nausea, vomiting, diarrhea, and constipation, Back: Negative for injury and pain, : Negative for injury, bleeding, discharge, and swelling, MS/Extremity: Negative for injury and deformity, Skin: Negative for injury, rash, and discoloration, Neuro: Negative for headache, weakness, numbness, tingling, and seizure. 06:38 Cardiovascular: Positive for chest pain, orthopnea. Exam: 06:38 Constitutional: This is a well developed, well nourished patient who is awake, alert, geovanny and in no acute distress. Head/Face: Normocephalic, atraumatic. Eyes: Pupils equal round and reactive to light, extra-ocular motions intact. Lids and lashes normal. Conjunctiva and sclera are non-icteric and not injected. Cornea within normal limits. Periorbital areas with no swelling, redness, or edema. ENT: Nares patent. No nasal discharge, no septal abnormalities noted. Tympanic membranes are normal and external auditory canals are clear. Oropharynx with no redness, swelling, or masses, exudates, or evidence of obstruction, uvula midline. Mucous membranes moist. Neck: Trachea midline, no thyromegaly or masses palpated, and no cervical lymphadenopathy. Supple, full range of motion without nuchal rigidity, or vertebral point tenderness. No Meningismus. Chest/axilla: Normal chest wall appearance and motion. Nontender with no deformity. No lesions are appreciated. Cardiovascular: Regular rate and rhythm with a normal S1 and S2. No gallops, murmurs, or rubs. Normal PMI, no JVD. No pulse deficits. Respiratory: Lungs have equal breath sounds bilaterally, clear to auscultation and percussion. No rales, rhonchi or wheezes noted. No increased work of breathing, no retractions or nasal flaring. Abdomen/GI: Soft, non-tender, with normal bowel sounds. No distension or tympany. No guarding or rebound. No evidence of tenderness throughout. Back: No spinal tenderness. No costovertebral tenderness. Full range of motion. Male : Normal genitalia with no discharge or lesions. Skin: Warm, dry with normal turgor. Normal color with no rashes, no lesions, and no evidence of cellulitis. MS/ Extremity: Pulses equal, no cyanosis. Neurovascular intact. Full, normal range of motion. Neuro: Awake and alert, GCS 15, oriented to person, place, time, and situation. Cranial nerves II-XII grossly intact. Motor strength 5/5 in all extremities. Sensory grossly intact. Cerebellar exam normal. Normal gait. Psych: Awake, alert, with orientation to person, place and time. Behavior, mood, and affect are within normal limits. 06:38 Musculoskeletal/extremity: ROM: no acute changes, intact in all extremities, full active range of motion, Circulation is intact in all extremities. Sensation intact. Compartment Syndrome exam of affected extremity: is normal. DVT Exam: No signs of deep vein thrombosis. no pain, no swelling, no tenderness, negative Homans' sign noted on exam, no appreciated bluish discoloration, no erythema, no increased warmth. 06:54 ECG was reviewed by the Attending Physician. [facility] Vital Signs: 04:24 BP 126 / 67; Pulse 53; Resp 18; Temp 98.4(O); Pulse Ox 100% ; Weight 127.01 kg; Height ke1 5 ft. 4 in. (162.56 cm); Pain 6/10; 06:00 BP 138 / 79; Pulse 53; Resp 13; Pulse Ox 99% on R/A; ke1 07:00 BP 144 / 98; Pulse 61; Pulse Ox 99% ; ll1 09:00 BP 131 / 79; Pulse 49; Pulse Ox 96% ; ll1 09:00 BP 130 / 81; Pulse 47; Resp 16; Pulse Ox 97% on R/A; ll1 09:47 BP 128 / 80; Pulse 46; Resp 15; Pulse Ox 97% on R/A; ll1 10:15 BP 133 / 85; Pulse 43; Resp 17; Pulse Ox 97% ; ll1 11:00 Pulse 43; Resp 17; Pulse Ox 97% ; ll1 11:54 Pulse 41; Resp 18; Pulse Ox 97% on R/A; ll1 04:24 Body Mass Index 48.06 (127.01 kg, 162.56 cm) ke1 10:15 patient keeps taking BP cuff off. Re applied again. ll1 11:00 Patient removed BP cuff again. ll1 11:54 Refuses BP. Keeps removeing cuff. ll1 MDM: 04:05 Patient medically screened. geovanny 12:39 Data reviewed: vital signs, nurses notes, lab test result(s), radiologic studies. kdr Counseling: I had a detailed discussion with the patient and/or guardian regarding: the historical points, exam findings, and any diagnostic results supporting the discharge/admit diagnosis, lab results, radiology results, the need for outpatient follow up. 03/26 04:05 Order name: Basic Metabolic Panel; Complete Time: 06:28 geovanny 03/26 04:05 Order name: CBC with Diff; Complete Time: 06:28 [facility] 03/26 04:05 Order name: D-Dimer; Complete Time: 06:28 [facility] 03/26 04:05 Order name: LFT's; Complete Time: 06:28 [facility] 03/26 04:05 Order name: Magnesium; Complete Time: 06:28 [facility] 03/26 04:05 Order name: NT PRO-BNP; Complete Time: 06:28 [facility] 03/26 04:05 Order name: PT-INR; Complete Time: 06:28 [facility] 03/26 04:05 Order name: Troponin HS; Complete Time: 06:28 [facility] 03/26 04:05 Order name: XRAY Chest (1 view) 03/26 04:06 Order name: Lipase; Complete Time: 06:28 [facility] 03/26 05:53 Order name: Extrem Venous W Compression Sonu US; Complete Time: 08:07 lp1 03/26 06:30 Order name: CT Chest For PE Angio; Complete Time: 08:07 [facility] 03/26 06:32 Order name: Troponin High Sensitivity: 9am; Complete Time: 12:19 [facility] 03/26 04:05 Order name: EKG; Complete Time: 04:07 [facility] 03/26 04:05 Order name: Cardiac monitoring; Complete Time: 04:59 [facility] 03/26 04:05 Order name: EKG - Nurse/Tech; Complete Time: 04:59 [facility] 03/26 04:05 Order name: IV Saline Lock; Complete Time: 05:52 [facility] 03/26 04:05 Order name: Labs collected and sent; Complete Time: 05:52 [facility] 03/26 04:05 Order name: O2 Per Protocol; Complete Time: 04:59 [facility] 03/26 04:05 Order name: O2 Sat Monitoring; Complete Time: 04:59 [facility] 03/26 05:18 Order name: Labs - recollect needed: Blue [place]; Complete Time: 05:52 lp1 EC:54 Rate is 55 beats/min. Rhythm is regular. QRS [place] is Normal. [place] interval is normal. QRS geovanny interval is normal. QT interval is normal. No Q waves. T waves are Normal. No ST changes noted. Clinical impression: Sinus bradycardia and No evidence of ischemia. Interpreted by me. Reviewed by me. Administered Medications: 04:20 Drug: Aspirin Chewable Tablet 324 mg Route: PO; ke1 07:45 Follow up: Response: No adverse reaction ll1 05:52 Drug: NS 0.9% 1000 ml Route: IV; Rate: 1 bolus; Site: right antecubital; ke1 07:44 Follow up: Response: No adverse reaction; IV Status: Completed infusion; IV Intake: ll1 1000ml 05:59 Drug: Pepcid (famotidine) 20 mg Route: IVP; Site: right antecubital; ke1 07:44 Follow up: Response: No adverse reaction ll1 07:06 Drug: SOLU-Medrol (methylPrednisoLONE) 125 mg Route: IVP; Site: right antecubital; ke1 07:43 Follow up: Response: No adverse reaction ll1 07:06 Drug: Potassium Effervescent Tablet 25 mEq Route: PO; ke1 07:43 Follow up: Response: No adverse reaction ll1 07:06 Drug: Zithromax (azithromycin) 500 mg Route: PO; ke1 07:43 Follow up: Response: No adverse reaction ll1 07:07 Drug: Pepcid (famotidine) 20 mg Route: IVP; Site: right antecubital; ke1 07:44 Follow up: Response: No adverse reaction ll1 07:07 Drug: Benadryl (diphenhydrAMINE) 50 mg Route: IVP; Site: right antecubital; ke1 07:44 Follow up: Response: No adverse reaction ll1 Disposition Summary: 03/26/22 12:19 Discharge Ordered Location: Home kdr Problem: new kdr Symptoms: have improved kdr Condition: Stable kdr Diagnosis - Coronavirus infection, unspecified kdr - SARS-associated coronavirus as the cause of diseases classified elsewhere kdr - Obesity, unspecified kdr - Chest pain, unspecified kdr - Hypokalemia kdr Followup: geovanny - With: - When: 2 - 3 days - Reason: Recheck today's complaints, Continuance of care, Re-evaluation by your physician Followup: geovanny - With: - When: 2 - 3 days - Reason: Recheck today's complaints, Continuance of care, Re-evaluation by your physician Discharge Instructions: - Discharge Summary Sheet geovanny - Nonspecific Chest Pain, Adult geovanny - Chest Wall Pain geovanny - Cool Mist Vaporizer geovanny - Chest Wall Pain, [id number] geovanny - Potassium Content of Foods geovanny - Nonspecific Chest Pain, Adult, [id number] geovanny - Aspirin and Your Heart geovanny - COVID-19 geovanny - COVID-19 Frequently Asked Questions geovanny - Things to Know about the COVID-19 Pandemic - CDC geovanny - 10 Things You Can Do to Manage Your COVID-19 Symptoms at Home - [facility] - Viral Illness, Adult geovanny - Hypokalemia geovanny - COVID-19: Quarantine vs. Isolation - [facility] - Prevent the Spread of COVID-19 if You Are Sick - [facility] Forms: - Medication Reconciliation Form kdr - Thank You Letter kdr - Antibiotic Education kdr - Prescription Opioid Use kdr Prescriptions: - budesonide 180 mcg/actuation Inhalation aerosol powdr breath activated - inhale 1 puff by INHALATION route 2 times per day; 1 Pump; Refills: 0, Product [facility] Selection Permitted - Pepcid 20 mg Oral Tablet - take 1 tablet by ORAL route every 12 hours for 15 days; 30 tablet; Refills: 0, [facility] Product Selection Permitted - Zithromax 500 mg Oral Tablet - take 1 tablet by ORAL route once daily for 5 days; 5 tablet; Refills: 0, [facility] Product Selection Permitted Signatures: Dispatcher [employer] Mynor Boo MD MD cha Rittger, Kevin, MD MD kdr Pena, Laura RN RN lp1 Aaron Barrera RN RN ke1 Ambika Villavicencio RN ll1
[2022-03-26 12:35] VITALS: TEMP 98.4
[2022-03-26 12:42] VITALS: O2SAT 97
[2022-03-26 12:45] VITALS: BP 133/85
--- NOTE | 2022-03-27 14:05 | RAD REPORT ---
EXAM DESCRIPTION: RAD - Chest Single View - 03/26/2022 4:39 am CLINICAL HISTORY: The patient is 46 years old and is Male; Cough TECHNIQUE: Frontal view of the chest. COMPARISON: No relevant prior studies available. FINDINGS: Lungs: Haziness in the left lung base which may be due to overlying soft tissue, atelect asis, or mild airspace disease. Pleural space: Unremarkable. No pneumothorax. Heart: Unremarkable. Mediastinum: Unremarkable. Bones/joints: Unremarkable. IMPRESSION: Haziness in the left lung base which may be due to overlying soft tissue, atelectasis, o r mild airspace disease. Electronically signed by: Rick Brown MD 03/26/2022 5:49 AM CDT Due to temporary technical issues with the PACS/Fluency reporting system, reports are being signed by the in house radiologists without review as a courtesy to insure prompt reporting. The interpreting radiologist is fully responsible for the content of the report.
--- NOTE | 2022-03-28 08:01 | EKG ---
Test Date: 2022-03-26 Test Time: 04:52:57 Account Service Associate: OSVALDO MEASUREMENT RESULTS: Intervals: Rate: 55 WA: 180 QRSD: 102 QT: 422 QTc: 403 [place]: P: 37 WA: 180 QRS: 20 T: 47 INTERPRETIVE STATEMENTS: Sinus bradycardia Otherwise normal ECG No previous ECG available for comparison Electronically Signed On 03-28-22 07:55:53 CDT by Gomez Goddard
== END 2022-03-26 12:27 | disposition home or self-care (01) ==
LOC: ER 04:02
DX: U07.1 COVID-19 (principal); E87.6 Hypokalemia; E66.9 Obesity, unspecified; F17.220 Nicotine dependence, chewing tobacco, uncomplicated; Z91.013 Allergy to seafood; Z91.048 Other nonmedicinal substance allergy status
CPT/HCPCS: 36415; 71045; 71275; 80048; 80076; 83690; 83735; 83880; 84484; 85025; 85379; 85610; 93005; 93970; 96361; 96374; 96375; 99285; J1200; J2930; J3490; J7030; Q9967

== ENCOUNTER 2022-04-10 00:07 | Emergency (ER) | payer SELFPAY ==
[2022-04-10] MEDS ORDERED: METOCLOPRAMIDE 10 MG/2mL INJ ONE (02:59)
[2022-04-10] MEDS ORDERED: DIPHENHYDRAMINE 50 MG/ML VIAL ONE (02:59)
[2022-04-10] MEDS ORDERED: NA CHLORIDE 0.9% 1,000 ML ONE (02:59)
[2022-04-10 03:09] LABS: Absolute Lymphocytes (CBC) 1.9 K/uL (0.7-4.9); Lymphocytes % 22.9 % (15.3-44.8); MCV 91.2 fL (80-100); MPV 9.6 fL (7.6-11.3); RBC Red Blood Cell Count 4.61 M/uL (4.33-5.43)
[2022-04-10 03:11] LABS: Protime INR 1.01
[2022-04-10 03:24] LABS: Albumin 3.6 g/dL (3.4-5.0); Bilirubin Direct 0.2 mg/dL (0-0.2); Bilirubin Total 0.8 mg/dL (0.2-1.0); Potassium 3.8 mmol/L (3.5-5.1); Protein, Total 7.6 g/dL (6.4-8.2)
--- NOTE | 2022-04-10 06:00 | ER ---
Nurse's Notes [facility] Name: Ruben Alamo Age: 46 yrs Sex: Male : 1975 Arrival Date: 04/10/2022 Time: 00:19 Bed 13 Private MD: Diagnosis: Headache Presentation: 04/10 00:23 Chief complaint: Patient states: "I have a migraine that has been continuing. If I tw5 close my eyes it gets better". Coronavirus screen: Vaccine status: Patient reports receiving the 2nd dose of the covid vaccine. Storie. Ebola Screen: Patient negative for fever greater than or equal to 101.5 degrees Fahrenheit, and additional compatible Ebola Virus Disease symptoms Patient denies travel to an Ebola-affected area in the 21 days before illness onset. Initial Sepsis Screen: Does the patient meet any 2 criteria? No. Patient's initial sepsis screen is negative. Does the patient have a suspected source of infection? No. Patient's initial sepsis screen is negative. Risk Assessment: Do you want to hurt yourself or someone else? Patient reports no desire to harm self or others. Onset of symptoms was April 09, 2022. 00:23 Method Of Arrival: Ambulatory tw5 00:23 Acuity: LIZBETH 3 tw5 Triage Assessment: 00:25 Headache History: The patient has had previous headaches and this one is different than tw5 previous episodes. General: Appears in no apparent distress. uncomfortable, Behavior is calm, cooperative. Pain: Pain currently is 8 out of 10 on a pain scale. Pain began 1 day ago. Also complains of photophobia. Neuro: Level of Consciousness is awake, alert, obeys commands, Oriented to person, place, time, situation. Historical: - Allergies: 00:25 Iodine; tw5 00:25 SHELLFISH; tw5 - PMHx: 00:25 Chronic pain; 5 - PSHx: 00:25 Spinal surgery; tw5 - Immunization history:: Flu vaccine is not up to date. - Social history:: Smoking status: Patient denies any tobacco usage or history of. Screenin:11 Abuse screen: Denies threats or abuse. Nutritional screening: No deficits noted. ke1 Tuberculosis screening: No symptoms or risk factors identified. Fall Risk None identified. Assessment: 01:10 Reassessment: Patient appears in no apparent distress at this time. ke1 03:20 Reassessment: Patient appears in no apparent distress at this time. Patient denies pain ke1 at this time. Patient states feeling better. 04:52 Reassessment: Patient appears in no apparent distress at this time. No changes from ke1 previously documented assessment. 06:18 Reassessment: Left before taking paperwork. ke1 Vital Signs: 00:23 Pulse 60; Resp 18; Temp 98.2(O); Pulse Ox 97% ; Weight 131.09 kg; Height 5 ft. 4 in. tw5 (162.56 cm); Pain 8/10; 00:23 Body Mass Index 49.61 (131.09 kg, 162.56 cm) tw5 Sherlyn Coma Score: 05:56 Eye Response: spontaneous(4). Verbal Response: oriented(5). Motor Response: obeys 7 commands(6). Total: 15. ED Course: 00:19 Patient arrived in ED. ja2 00:25 Triage completed. tw5 00:25 Arm band placed on right wrist. tw5 00:31 Aaron Barrera, ANAHI is Primary Nurse. ke1 00:56 Arturo Godoy MD is Attending Physician. mh7 01:11 Bed in low position. Call light in reach. ke1 01:53 CT Head Brain wo Cont In Process Unspecified. EDMS 02:50 Initial lab(s) drawn, by me, sent to lab. Inserted saline lock: 20 gauge in right bb antecubital area, using aseptic technique. Blood collected. 06:17 No provider procedures requiring assistance completed. IV discontinued. ke1 06:17 IV discontinued. mh5 Administered Medications: 03:01 Drug: NS 0.9% 1000 ml Route: IV; Rate: 1000 ml; Site: right antecubital; ke1 03:01 Drug: Reglan (metoCLOPramide) 10 mg Route: IVP; Site: right antecubital; ke1 03:01 Drug: Benadryl (diphenhydrAMINE) 50 mg Route: IVP; Site: right antecubital; ke1 Medication: 06:17 VIS not applicable for this client. ke1 Outcome: 06:00 Discharge ordered by . mh7 06:17 Discharged to home ambulatory. ke1 06:17 Condition: good ke1 06:17 Discharge instructions given to patient. 06:39 Patient left the ED. ke1 Signatures: Dispatcher [employer] Katharine Farnsworth RN RN Liliana Hall 5 Arturo Godoy MD MD 7 Sultana Feldman Tiffany 5 Aaron Barrera RN RN ke1
--- NOTE | 2022-04-10 06:01 | EDPHYS ---
Physician Documentation [facility] Name: Ruben Alamo Age: 46 yrs Sex: Male : 1975 Arrival Date: 04/10/2022 Time: 00:19 Bed 13 Private MD: ED Physician Arturo Godoy HPI: 04/10 01:15 This 46 yrs old Black Male presents to ER via Ambulatory with complaints of Headache. mh7 01:15 The patient complains of pain to the top of head. The patient describes the headache as mh7 intermittent, throbbing, waxing and waning. Onset: The symptoms/episode began/occurred yesterday. Associated signs and symptoms: Pertinent positives: Photophobia Pertinent negatives: altered mental status, dizziness, fever, malaise, nausea, neck stiffness, paresthesias, rash, sinus congestion, sinus tenderness, vision changes, vision loss, vomiting, weakness, vertigo. Severity of symptoms: At its worst the pain was moderate, yesterday, in the emergency department the pain has improved, moderately. Headache History: The patient has had previous headaches and this one is similar to previous episodes. The symptoms are alleviated by Darkened room, quiet, the symptoms are aggravated by lights, noise, stress. Historical: - Allergies: 00:25 Iodine; tw5 00:25 SHELLFISH; tw5 - PMHx: 00:25 Chronic pain; tw5 - PSHx: 00:25 Spinal surgery; tw5 - Immunization history:: Flu vaccine is not up to date. - Social history:: Smoking status: Patient denies any tobacco usage or history of. ROS: 01:15 Constitutional: Negative for fever, chills, and weight loss, Eyes: Negative for injury, mh7 pain, redness, and discharge, ENT: Negative for injury, pain, and discharge, Neck: Negative for injury, pain, and swelling, Cardiovascular: Negative for chest pain, palpitations, and edema, Respiratory: Negative for shortness of breath, cough, wheezing, and pleuritic chest pain, Abdomen/GI: Negative for abdominal pain, nausea, vomiting, diarrhea, and constipation, Back: Negative for injury and pain, : Negative for injury, bleeding, discharge, and swelling, MS/Extremity: Negative for injury and deformity, Skin: Negative for injury, rash, and discoloration, Psych: Negative for depression, anxiety, suicide ideation, homicidal ideation, and hallucinations, Allergy/Immunology: Negative for hives, rash, and allergies, Endocrine: Negative for neck swelling, polydipsia, polyuria, polyphagia, and marked weight changes, Hematologic/Lymphatic: Negative for swollen nodes, abnormal bleeding, and unusual bruising. Exam: 01:15 Head/Face: Normocephalic, atraumatic. Eyes: Pupils equal round and reactive to light, mh7 extra-ocular motions intact. Lids and lashes normal. Conjunctiva and sclera are non-icteric and not injected. Cornea within normal limits. Periorbital areas with no swelling, redness, or edema. Neck: Trachea midline, no thyromegaly or masses palpated, and no cervical lymphadenopathy. Supple, full range of motion without nuchal rigidity, or vertebral point tenderness. No Meningismus. Chest/axilla: Normal chest wall appearance and motion. Nontender with no deformity. No lesions are appreciated. Cardiovascular: Regular rate and rhythm with a normal S1 and S2. No gallops, murmurs, or rubs. Normal PMI, no JVD. No pulse deficits. Respiratory: Lungs have equal breath sounds bilaterally, clear to auscultation and percussion. No rales, rhonchi or wheezes noted. No increased work of breathing, no retractions or nasal flaring. Abdomen/GI: Soft, non-tender, with normal bowel sounds. No distension or tympany. No guarding or rebound. No evidence of tenderness throughout. Back: No spinal tenderness. No costovertebral tenderness. Full range of motion. Skin: Warm, dry with normal turgor. Normal color with no rashes, no lesions, and no evidence of cellulitis. MS/ Extremity: Pulses equal, no cyanosis. Neurovascular intact. Full, normal range of motion. Neuro: Awake and alert, GCS 15, oriented to person, place, time, and situation. Cranial nerves II-XII grossly intact. Motor strength 5/5 in all extremities. Sensory grossly intact. Cerebellar exam normal. Normal gait. Psych: Awake, alert, with orientation to person, place and time. Behavior, mood, and affect are within normal limits. 01:15 Constitutional: The patient appears in no acute distress, alert, awake, uncomfortable. Vital Signs: 00:23 Pulse 60; Resp 18; Temp 98.2(O); Pulse Ox 97% ; Weight 131.09 kg; Height 5 ft. 4 in. tw5 (162.56 cm); Pain 8/10; 00:23 Body Mass Index 49.61 (131.09 kg, 162.56 cm) tw5 [place] Score: 05:56 Eye Response: spontaneous(4). Verbal Response: oriented(5). Motor Response: obeys 7 commands(6). Total: 15. MDM: 05:56 Differential diagnosis: cluster headache, hypoglycemia, intracerebral hemorrhage, mh7 migraine, tension headache. Data reviewed: vital signs, nurses notes, lab test result(s), CBC, electrolytes, radiologic studies, CT scan. Data interpreted: Pulse oximetry: on room air is 97 %. Interpretation: normal. Counseling: I had a detailed discussion with the patient and/or guardian regarding: the historical points, exam findings, and any diagnostic results supporting the discharge/admit diagnosis, the presence of at least one elevated blood pressure reading (>120/80) during this emergency department visit, lab results, radiology results, the need for outpatient follow up, a neurologist, to return to the emergency department if symptoms worsen or persist or if there are any questions or concerns that arise at home. Response to treatment: the patient's symptoms have resolved after treatment, the patient's blood pressure is in an acceptable range, mental status has returned to baseline, the patient no longer shows bradycardia, the patient is not short of breath, the patient is not tachycardic, the patient's pain is gone, the patient's temperature has normalized, the patient is now symptom free, patient is well hydrated. 06:00 Patient medically screened. [facility] 04/10 01:21 Order name: CBC with Diff; Complete Time: 04: [facility] 04/10 01:21 Order name: Basic Metabolic Panel; Complete Time: 04: [facility] 04/10 01:21 Order name: Protime (+inr); Complete Time: 04: [facility] 04/10 01:21 Order name: Ptt, Activated; Complete Time: 04:22 [facility] 04/10 01:21 Order name: LFT's; Complete Time: 04: [facility] 04/10 01:22 Order name: COVID-19 SARS RT PCR (Document "Date of Onset" if Symptomatic); Complete [facility] Time: 04:04/10 01:21 Order name: Saline Lock; Complete Time: 03:01 [facility] 04/10 01:21 Order name: CT Head Brain wo Cont [facility] Administered Medications: 03:01 Drug: NS 0.9% 1000 ml Route: IV; Rate: 1000 ml; Site: right antecubital; ke1 03:01 Drug: Reglan (metoCLOPramide) 10 mg Route: IVP; Site: right antecubital; ke1 03:01 Drug: Benadryl (diphenhydrAMINE) 50 mg Route: IVP; Site: right antecubital; ke1 Disposition Summary: 04/10/22 06:00 Discharge Ordered Location: Home [facility] Problem: new [facility] Symptoms: have improved [facility] Condition: Stable [facility] Diagnosis - Headache [facility] Followup: [facility] - With: Private Physician - When: 1 - 2 days - Reason: Worsening of condition, Recheck today's complaints, Continuance of care, Re-evaluation by your physician Discharge Instructions: - Discharge Summary Sheet [facility] - General Headache Without Cause [facility] Forms: - Medication Reconciliation Form [facility] - Thank You Letter [facility] - Antibiotic Education [facility] - Prescription Opioid Use [facility] Signatures: Dispatcher [employer] Arturo Sykes MD MD [facility] Juanita Dobson 5 Aaron Barrera RN RN ke1
[2022-04-10 07:37] VITALS: TEMP 98.2; O2SAT 97
--- NOTE | 2022-04-11 10:07 | RAD REPORT ---
EXAM DESCRIPTION: CT - Head Brain Wo Cont - 04/10/2022 6:37 am CLINICAL HISTORY: Headache, tension-type COMPARISON: None available TECHNIQUE: Axial CT of the head obtained from the skull apex to the skull base without contrast. Thi s exam was performed according to our departmental dose-optimization program, which includes automate d exposure control, adjustment of the mA and/or kV according to patient size and/or use of iterative reconstruction technique. FINDINGS: No acute intracranial hemorrhage identified. No mass, mass effect, shift of the midline, a bnormal extra-axial fluid collection or CT evidence of acute ischemic change identified. The ventricu lar system is unremarkable. No acute abnormalities of the supratentorial white matter, basal gangli a, cerebellum, or brainstem. The visualized paranasal sinuses and the mastoid air cells are relatively well aerated. No skull fr acture identified. Visualized orbits and globes are unremarkable. IMPRESSION: 1. No acute intracranial abnormality identified. Electronically signed by: Jose A Lewis 04/10/2022 3:48 AM CDT Due to temporary technical issues with the PACS/Fluency reporting system, reports are being signed by the in house radiologists without review as a courtesy to insure prompt reporting. The interpreting radiologist is fully responsible for the content of the report.
== END 2022-04-10 06:39 | disposition home or self-care (01) ==
LOC: ER 00:07
DX: R51.9 Headache, unspecified (principal); Z91.013 Allergy to seafood; Z91.048 Other nonmedicinal substance allergy status; Z20.822 Contact with and (suspected) exposure to COVID-19
CPT/HCPCS: 36415; 70450; 80048; 80076; 85025; 85610; 85730; 96374; 96375; 99284; J1200; J2765; J7030; U0003

== ENCOUNTER 2022-04-19 22:23 | Emergency (ER) | payer SELFPAY ==
[2022-04-20] MEDS ORDERED: dexAMETHasone 10 MG/ML VIAL ONE (00:23)
[2022-04-20] MEDS ORDERED: DIPHENHYDRAMINE 50 MG/ML VIAL ONE (00:23)
[2022-04-20] MEDS ORDERED: METOCLOPRAMIDE 10 MG/2mL INJ ONE (00:23)
[2022-04-20] MEDS ORDERED: NA CHLORIDE 0.9% 1,000 ML ONE (00:24)
--- NOTE | 2022-04-20 01:37 | EDPHYS ---
Physician Documentation [facility] Name: Ruben Alamo Age: 46 yrs Sex: Male : 1975 Arrival Date: 04/19/2022 Time: 22:27 Bed Treatment Private MD: ED Physician Ghassan Short HPI: 04/20 00:05 This 46 yrs old Black Male presents to ER via Ambulatory with complaints of Headache, cp Burning Sensation back of leg. 00:05 The patient complains of pain to the top of head and forehead. The patient describes cp the headache as aching. Onset: The symptoms/episode began/occurred today. Headache History: The patient has had previous headaches and this one is similar to previous episodes. 00:05 Associated signs and symptoms: Pertinent negatives: altered mental status, dizziness, cp fever, neck stiffness, vision changes, vomiting, weakness. Historical: - Allergies: 04/19 22:47 Iodine; bh1 22:47 SHELLFISH; bh1 - Home Meds: 22:47 gabapentin 100 mg oral tab [Active]; hydrocodone-acetaminophen 10-250 mg Oral tab 1 [Active]; - PMHx: 22:47 Chronic pain; bh1 - PSHx: 22:47 Spinal surgery; bh1 - Immunization history:: Adult Immunizations up to date. - Social history:: Smoking status: Patient reports use of chewing tobacco. ROS: 04/20 00:10 Constitutional: Negative for body aches, chills, fever, poor PO intake. cp 00:10 Eyes: Negative for injury, pain, redness, and discharge. cp 00:10 Neck: Positive for chronic pain. 00:10 Cardiovascular: Negative for chest pain, palpitations. 00:10 Respiratory: Negative for cough, shortness of breath, wheezing. 00:10 Abdomen/GI: Negative for abdominal pain, nausea, vomiting, and diarrhea. 00:10 Back: Positive for chronic pain. 00:10 : Negative for urinary symptoms, difficulty urinating, bladder incontinence, testicular pain 00:10 Neuro: Positive for headache, burning sensation of back left leg, Negative for altered mental status, weakness. 00:10 All other systems are negative. Exam: 00:15 Constitutional: The patient appears in no acute distress, alert, awake, non-toxic, well cp developed, well nourished, obese. 00:15 Head/Face: Normocephalic, atraumatic. cp 00:15 Eyes: Periorbital structures: appear normal, Pupils: equal, round, and reactive to light and accomodation, Extraocular movements: intact throughout, Conjunctiva: normal, no exudate, no injection, Sclera: no appreciated abnormality, Lids and lashes: appear normal, bilaterally. 00:15 ENT: External ear(s): are unremarkable, Nose: is normal, Mouth: Lips: moist, Oral mucosa: moist, Posterior pharynx: Airway: no evidence of obstruction, patent. 00:15 Neck: ROM/movement: Meningeal signs: are not present, nuchal rigidity, is not appreciated. 00:15 Chest/axilla: Inspection: normal. 00:15 Cardiovascular: Rate: normal, Rhythm: regular, Edema: is not appreciated, JVD: is not cp appreciated. 00:15 Respiratory: the patient does not display signs of respiratory distress, Respirations: cp normal, no use of accessory muscles, no retractions, labored breathing, is not present, Breath sounds: are clear throughout, no decreased breath sounds, no stridor, no wheezing. 00:15 Abdomen/GI: Inspection: abdomen appears normal, Palpation: abdomen is soft and non-tender, in all quadrants. 00:15 Back: pain, is absent, ROM is normal. 00:15 Neuro: Orientation: to person, place \T\ time. Mentation: is normal, Cerebellar function: is grossly normal, Motor: moves all fours, strength is normal. Vital Signs: 04/19 22:45 BP 123 / 75; Pulse 81; Resp 20; Temp 98.5; Pulse Ox 97% on R/A; Weight 127.01 kg; bh1 Height 5 ft. 4 in. (162.56 cm); Pain 6/10; 04/20 02:00 BP 135 / 80; Pulse 62; Resp 18 S; Temp 98(O); Pulse Ox 99% on R/A; bb 04/19 22:45 Body Mass Index 48.06 (127.01 kg, 162.56 cm) bh1 MDM: 04/19 23:38 Patient medically screened. cp 04/20 01:36 Data reviewed: vital signs, nurses notes. cp 01:36 Differential diagnosis: intracerebral hemorrhage, meningitis, meningoencephalitis, cp migraine, neoplasm, subarachnoid bleed, subdural hematoma, tension headache. Counseling: I had a detailed discussion with the patient and/or guardian regarding: the historical points, exam findings, and any diagnostic results supporting the discharge/admit diagnosis, the need for outpatient follow up, a family practitioner, to return to the emergency department if symptoms worsen or persist or if there are any questions or concerns that arise at home. Response to treatment: the patient's symptoms have markedly improved after treatment, and as a result, I will discharge patient. 04/19 23:58 Order name: IV; Complete Time: 00:57 cp Administered Medications: 00:38 Drug: NS 0.9% 1000 ml Route: IV; Rate: 500 ml/hr; Site: left antecubital; bb 01:51 Follow up: IV Status: Completed infusion; IV Intake: 950ml bb 00:44 Drug: Dexamethasone 10 mg Route: IVP; Site: left antecubital; bb 01:52 Follow up: Response: No adverse reaction bb 00:45 Drug: Reglan (metoCLOPramide) 10 mg Route: IVP; Site: left antecubital; bb 01:52 Follow up: Response: No adverse reaction bb 00:47 Drug: Benadryl (diphenhydrAMINE) 25 mg Route: IVP; Site: left antecubital; bb 01:52 Follow up: Response: No adverse reaction bb Disposition: 04:28 Co-signature as Attending Physician, Ghassan Short MD I agree with the assessment and kdr plan of care. Disposition Summary: 04/20/22 01:37 Discharge Ordered Location: Home cp Condition: Stable cp Problem: new cp Symptoms: have improved cp Diagnosis - Headache cp - Other disturbances of skin sensation - burning of left leg cp Followup: cp - With: Private Physician - When: 2 - 3 days - Reason: Recheck today's complaints Discharge Instructions: - Discharge Summary Sheet cp - Migraine Headache cp - Radicular Pain cp Forms: - Medication Reconciliation Form cp - Thank You Letter cp - Antibiotic Education cp - Prescription Opioid Use cp Prescriptions: - Ibuprofen 800 mg Oral Tablet - take 1 tablet by ORAL route every 8 hours As needed take with food; 30 tablet; cp Refills: 0, Product Selection Permitted - Zofran 4 mg Oral Tablet - take 1 tablet by ORAL route every 12 hours As needed; 20 tablet; Refills: 0, cp Product Selection Permitted Signatures: Ghassan Short MD MD kdr Katharine Humphrey, RN RN bb Mynor Peña PA PA cp Hicks, Barbara, RN RN bh1
--- NOTE | 2022-04-20 01:37 | ER ---
Nurse's Notes [facility] Name: Ruben Alamo Age: 46 yrs Sex: Male : 1975 Arrival Date: 04/19/2022 Time: 22:27 Bed Treatment Private MD: Diagnosis: Headache;Other disturbances of skin sensation-burning of left leg Presentation: 04/19 22:45 Chief complaint: Patient states: bad headache all day with a burning sensation down [facility] left leg. Coronavirus screen: Vaccine status: Patient reports receiving the 2nd dose of the covid vaccine. headache. Ebola Screen: Patient negative for fever greater than or equal to 101.5 degrees Fahrenheit, and additional compatible Ebola Virus Disease symptoms. Initial Sepsis Screen: Does the patient meet any 2 criteria? No. Patient's initial sepsis screen is negative. Does the patient have a suspected source of infection? No. Patient's initial sepsis screen is negative. Risk Assessment: Do you want to hurt yourself or someone else? Patient reports no desire to harm self or others. Onset of symptoms was April 19, 2022. 22:45 Method Of Arrival: Ambulatory [facility] 22:45 Acuity: LIZBETH 3 [facility] Triage Assessment: 22:47 Headache History: The patient has had previous headaches and this one is similar to [facility] previous episodes. General: Appears in no apparent distress. uncomfortable, Behavior is calm, cooperative, appropriate for age. Pain: Complains of pain in top of head Pain currently is 6 out of 10 on a pain scale. Pain began 4 hours ago. Also complains of no other associated symptoms. Neuro: No deficits noted. Historical: - Allergies: 22:47 Iodine; [facility] 22:47 SHELLFISH; [facility] - Home Meds: 22:47 gabapentin 100 mg oral tab [Active]; hydrocodone-acetaminophen 10-250 mg Oral tab [facility] [Active]; - PMHx: 22:47 Chronic pain; [facility] - PSHx: 22:47 Spinal surgery; [facility] - Immunization history:: Adult Immunizations up to date. - Social history:: Smoking status: Patient reports use of chewing tobacco. Screenin:42 Abuse screen: Denies threats or abuse. Nutritional screening: No deficits noted. bb Tuberculosis screening: No symptoms or risk factors identified. Fall Risk None identified. Assessment: 23:42 General: Appears in no apparent distress. Behavior is calm, cooperative. Pain: bb Complains of pain in headache. Neuro: Level of Consciousness is awake, obeys commands, lethargic. Cardiovascular: Capillary refill < 3 seconds Patient's skin is warm and dry. Respiratory: Respiratory effort is even, unlabored. GI: No signs and/or symptoms were reported involving the gastrointestinal system. Derm: Skin is dry, Skin is normal, Skin temperature is warm. Musculoskeletal: Circulation, motion, and sensation intact. 04/20 01:59 Reassessment: Patient is alert, oriented x 3, equal unlabored respirations, skin bb warm/dry/pink. pt verbalized understanding of and agrees to plan of care discharge instructions given pt ambulated with steady gait to exit Patient states feeling better. Vital Signs: 04/19 22:45 BP 123 / 75; Pulse 81; Resp 20; Temp 98.5; Pulse Ox 97% on R/A; Weight 127.01 kg; 1 Height 5 ft. 4 in. (162.56 cm); Pain 6/10; 04/20 02:00 BP 135 / 80; Pulse 62; Resp 18 S; Temp 98(O); Pulse Ox 99% on R/A; bb 04/19 22:45 Body Mass Index 48.06 (127.01 kg, 162.56 cm) [facility] ED Course: 04/19 22:27 Patient arrived in ED. bp1 22:47 Triage completed. bh1 22:47 Arm band placed on right wrist. bh1 23:35 Mynor Peña PA is PHCP. cp 23:35 Ghassan Short MD is Attending Physician. cp 23:42 Patient has correct armband on for positive identification. Bed in low position. Call bb light in reach. 04/20 00:37 Inserted saline lock: 20 gauge in left antecubital area, using aseptic technique. bb 00:55 Katharine Humphrey, ANAHI is Primary Nurse. bb 01:59 No provider procedures requiring assistance completed. IV discontinued, intact, bb bleeding controlled, No redness/swelling at site. Pressure dressing applied. Administered Medications: 00:38 Drug: NS 0.9% 1000 ml Route: IV; Rate: 500 ml/hr; Site: left antecubital; bb 01:51 Follow up: IV Status: Completed infusion; IV Intake: 950ml bb 00:44 Drug: Dexamethasone 10 mg Route: IVP; Site: left antecubital; bb 01:52 Follow up: Response: No adverse reaction bb 00:45 Drug: Reglan (metoCLOPramide) 10 mg Route: IVP; Site: left antecubital; bb 01:52 Follow up: Response: No adverse reaction bb 00:47 Drug: Benadryl (diphenhydrAMINE) 25 mg Route: IVP; Site: left antecubital; bb 01:52 Follow up: Response: No adverse reaction bb Medication: 04/19 23:42 VIS not applicable for this client. bb Intake: 04/20 01:51 IV: 950ml; Total: 950ml. bb Outcome: 01:37 Discharge ordered by MD. mary beth 02:00 Discharged to home ambulatory. bb 02:00 Condition: stable 02:00 Discharge instructions given to patient, Instructed on discharge instructions, follow up and referral plans. medication usage, Demonstrated understanding of instructions, follow-up care, medications, Prescriptions given X 2. 02:00 Patient left the ED. bb Signatures: Katharine Humphrey, RN RN bb Mynor Peña, Oksana Pepper cp, Barbara, RN RN bh1
[2022-04-20 04:05] VITALS: BP 135/80; TEMP 98; O2SAT 99
== END 2022-04-20 02:00 | disposition home or self-care (01) ==
LOC: ER 22:23
DX: R51.9 Headache, unspecified (principal); R20.8 Other disturbances of skin sensation; G89.29 Other chronic pain; F17.220 Nicotine dependence, chewing tobacco, uncomplicated; Z91.013 Allergy to seafood; Z91.048 Other nonmedicinal substance allergy status
CPT/HCPCS: 96361; 96374; 96375; 99283; J1100; J1200; J2765; J7030

== ENCOUNTER 2022-05-01 22:40 | Emergency (ER) | payer SELFPAY ==
--- OUTSIDE RECORDS SUMMARY | 2022-05-01 22:43 | XMS REPORT | Continuity of Care Document ---
:1975 Author Organization [facility] t Address [address] [place] [address] Care Team Providers Name Role Phone PCP, PATIENT DOES NOT HAVE A Primary Care Physician Unavaila BO Bolton Attending Clinician Unavailable Bo Hennessy Attending Clinician ELIJAH Attending Clinician Unavailable BETHANY JORDAN Attending Clinician Unavailable Physician, No Primary or Family Admitting Clinician Unavailmiguel NAVA Admitting Clinician Unavailable Payers Payer Name Policy Type Policy Number Effective Date Expiration Date S ource Problems Condition Condition Condition Status Onset Resolution Last Treating Co mments Source Name Details Category Date Date Treatment Clinician Date Backache Backache Problem [facility] (LUF/LI V/SA) No known No known Disease Unive rs active active ity of problems problems [facility] Lumbago Lumbago Problem Active 2017-11-07 M yunior with with 03:47:18 l sciatica, sciatica, Herm marcus left side left side Active Problem 11/07/2017 Family [facility] Body mass Body mass Problem Active 2017-11-07 Memoria index index 03:47:18 l (BMI) (BMI) [place] 45.0-49.9, 45.0-49.9, adult adult Active Problem 11/07/2017 Family Diagnostic Other Other Problem Active 2017-11-07 Memor ia chronic chronic 03:47:18 l pain pain [place] Active Problem 11/07/2017 Family [facility] Allergies, Adverse Reactions, Alerts Allergy Allergy Status Severity Reaction(s) Onset Inactive Treating Comm ents Source Name Type Date Date Clinician No Known DA Active [facility] 2019-0 [facility] 00:00: [facility] 00 [facility] No Known DA Active U 2020-0 [facility] 00:00: Region[facility] 00 [facility] NO KNOWN Drug Active Univers ALLERGIE Class ity of S [facility] Social History Social Habit Start Date Stop Date Quantity Comments Source Exposure to 2022-04-13 2022-04-23 Not sure [facility] SARS-CoV-2 (event) 00:00:00 15:09:00 [facility] Sex Assigned At [birth year] [facility] 00:00:00 00:00:00 Medical [place] Smoking Status Start Date Stop Date Source Tobacco smoking consumption [facility] (LUF/BLANCA/SA) Medications Ordered Filled Start Stop Current Ordering Indication Dosage Frequency Signature Comments Components Source Medication Medication Date Date Medication? Clinician (SIG) Name Name ketorolac 2021- Yes 30mg 30 mg, Unive rs (TORADOL) 04-23 Intramuscu ity of injection 21:15: 09:14 lar, ONCE, [place] 30 mg 00 :00 1 dose, On [facility] 04/23/22 at 1615, Routine metoclopram 2021- No 10mg 10 mg, Uni vers darren HCl 7-31 07-31 Intramuscu ity o f (REGLAN) 20:15: 20:45 [place] 00 :00 1 dose, On Medi shannan 10 mg [place] [facility] 04/23/22 at 1515, CHRISTINA Meloxicam 2017-0 Yes Toussaint 1 tablet Memoria 2-14 Irfan l 03:47: Tavo Hydrocodone 2017-0 Yes [place]aint 1 tablet Memoria -Acetaminop 2-14 Irfan as needed l hen 03:47: Tavo Garibay Carisoprodo 2017-0 Yes [place] 1 tablet Memoria l 2-14 Irfan as needed l 03:47: Tavo Meloxicam 2017-0 Yes [place]aint 1 tablet Memoria 2-14 Irfan l 03:47: Tavo Hydrocodone 2017-0 Yes [place]aint 1 tablet Memoria -Acetaminop 2-14 Irfan as needed l hen 03:47: Tavo Carisoprodo 2017-0 Yes [place]aint 1 tablet Memoria l 2-14 Irfan as needed l 03:47: Tavo Meloxicam 2017-0 Yes T[place]aint 1 tablet Memoria 2-14 Irfan l 03:47: Tavo Hydrocodone 2018-0 Yes T[place]aint 1 tablet Memoria -Acetaminop 2-14 Irfan as needed l hen 03:47: Tavo Carisoprodo 2017-0 Yes Toussaint 1 tablet Memoria l 2-14 Irfan as needed l 03:47: Tavo Acetaminoph 0 Yes Toussaint 1 tablet Memoria en-Codeine 2-01 Irfan as needed l #3 00:00: Acetaminoph 2017-0 Yes Toussaint 1 tablet Memoria en-Codeine 2-01 Irfan as needed l #3 00:00: Acetaminoph 2018-0 Yes T[place]aint 1 tablet Memoria en-Codeine 2-01 Irfan as needed l #3 00:00: Prednisone Prednisone 2017-0 Yes 60mg QD [facility] l (LUF/LI V/SA) [place] 0 Yes Toussaint 1 tablet Enrique elkin 1-15 Irfan as needed l 00:00: [place] 2018-0 Yes Toussaint 1 tablet Memor ia 1-15 Irfan as needed l 00:00: Meloxicam 2018-0 Yes Toussaint 1 tablet Memoria 1-15 Irfan l 00:00: [place] 2018-0 Yes T[place]aint 1 tablet Enrique elkin 1-15 Irfan as needed l 00:00: S[place] 2018-0 Yes Toussaint 1 tablet Memor ia 1-15 Irfan as needed l 00:00: Meloxicam 2018-0 Yes Toussaint 1 tablet Memoria 1-15 Irfan l 00:00: [place] 2018-0 Yes T[place]aint 1 tablet Enrique elkin 1-15 Irfan as needed l 00:00: [place] 2017-0 Yes Toussaint 1 tablet Memor ia 1-15 Irfan as needed l 00:00: Meloxicam 2018-0 Yes Toussaint 1 tablet Memoria 1-15 Irfan l 00:00: acetaminoph 2016-0 Yes 1{tbl} Take 1 Tab Univers en-codeine 3-31 by mouth ity o f (TYLENOL-CO 00:00: every 4 Tava[place] as DEINE #3) 00 (four) Medical 300-30 mg hours as Branch tablet needed for Pain (scale 4-6). Vital Signs Vital Name Observation Time Observation Value Comments Source Body weight 2022-04-23 20:11:00 133.131 kg [facility] BMI 2022-04-23 20:11:00 50.38 kg/m2 [facility] Systolic blood 2022-04-23 20:09:00 140 mm[Hg] Univer sity [facility] Diastolic blood 2022-04-23 20:09:00 81 mm[facility]Hg[facility] 2022-04-23 20:09:00 66 /min [facility] Body temperature 2022-04-23 20:09:00 36.72 [facility] Respiratory rate 2022-04-23 20:09:00 17 /[facility] Body height 2022-04-23 20:09:00 162.6 cm [facility] [place] [facility] Oxygen saturation in 2022-04-23 20:09:00 97 /min [facility] Arterial blood by [facility] Pulse oximetry Branch Weight 2017-10-25 15:00:00 Memorial [place] Height 2017-10-25 15:00:00 [facility] [place] Temperature Oral (F) 2017-10-25 15:00:00 97.8 F [facility] Tavo Heart Rate 2017-10-25 15:00:00 Memorial [place] Diastolic (mm Hg) 2017-10-25 15:00:00 Mem orial [place] Systolic (mm Hg) 2017-10-25 15:00:00 Enrique rial Tavo Body Temperature 2017-10-21 12:00:00 97.5 F [facility] (LUF/BLANCA/SA) Respiratory Rate 2017-10-21 12:00:00 20 /min [facility] (F/BLANCA/SA) O2% BldC Oximetry 2017-10-21 12:00:00 98 % [facility] (LUF/BLANCA/SA) BP Systolic 2017-10-21 12:00:00 132 mm[Hg] [facility] (LUF/BLANCA/SA) BP Diastolic 2017-10-21 12:00:00 78 mm[Hg] [facility] (LUF/BLANCA/SA) Height 2017-10-21 12:00:00 64 in [facility] (LUF/BLANCA/SA) Weight Measured 2017-10-21 12:00:00 282.19 lbs [facility] S t [facility] (LUF/BLANCA/SA) BMI (Body Mass 2017-10-21 12:00:00 48.7 [facility]) [facility] (LUF/BLANCA/SA) Weight 2017-10-08 15:45:00 [facility] [place] Height 2017-10-08 15:45:00 [facility] [place] Temperature Oral (F) 2017-10-08 15:45:00 96.8 F [facility] Tavo Heart Rate 2017-10-08 15:45:00 [facility] [place] Diastolic (mm Hg) 2017-10-08 15:45:00 Mem orial [place]avo Systolic (mm Hg) 2017-10-08 15:45:00 Enrique rial Tavo Procedures Procedure Date / Time Performed Performing Clinician [facility] e CONSENT/REFUSAL FOR 2022-04-23 20:00:28 Doctor Unassigned, No Un [facility] DIAGNOSIS AND Name Medical Branch TREATMENT Encounters Start End Encounter Admission Attending Care Care Encounter Source Date/Time Date/Time Type Type Clinicians Facility Department ID 2021-06-20 Outpatient [id number] Memoria 14:21:52 [id number] Tavo [id number] 2021-06-20 Outpatient [id number] Memoria 14:21:45 [id number] Tavo [id number] 2021-05-30 Outpatient [id number] Memoria 15:44:20 [id number] Tavo [id number] 2020-01-20 Inpatient [facility] [id number] [facility] 15:25:00 [id number] [facility] 2019-12-16 Inpatient [facility] [id number] [facility] 17:49:00 [id number] [facility] 2019-12-12 Inpatient [facility] [id number] [facility] 08:32:00 [id number] [facility] 2019-11-27 Inpatient [facility] [id number] [facility] 07:33:00 [id number] [facility] 2022-04-23 2022-04-23 Emergency X RIDNIKI, [facility] ERT [id number] Univers 15:11:00 15:52:00 BO fu of [facility] 2022-04-23 2022-04-23 Emergency [place], [facility] [id number] Univers 15:11:00 15:52:00 Bo RUSSO [id number] [facility] [id number] [facility] [id number] [facility] 084 Branch 2021-09-14 2021-09-14 Outpatient FERGUSON_AURELIANO [facility] [id number] [place] 02:13:00 02:13[place] [id number] [facility] 2021-09-08 2021-09-08 Outpatient FERGUSON_AURELIANO [facility] [id number] [place] 02:19:00 02:19[place] [id number] [facility] 2017-10-21 2017-10-21 PAIN IN [facility] [id number] [facility] 11:51:00 14:48:00 [facility], [address], (LUF/[place] [address] 2017-10-21 2017-10-21 PAIN IN [facility] [id number] 11:51:00 14:48:00 THORACIC BETHANY [facility] N Results Test Description Test Time Test Comments Results Result [facility] e Comments - CT HEAD/BRAIN 2019-12-16 Patient Name: W/O CONT 18:19:00 VIMAL BARROSO Unit No: [id number] EXAMS: CPT CODE: [id number] CT HEAD/BRAIN W/O CONT 00116 CLINICAL INFORMATION: Moderate frontal headaches. Coughing. Dictation [...] no mass or acute event identified. at 1819 Reported and signed by: Deepak Tee MD CC: Germania Engel DELI ASSOCIATE Dictated Date/Time: 12/16/2019 (1818) Technologist: Ibis Mata - Agency CTDI: 45.04 DLP: 757.79 Trnscrpt: 12/16/2019 (1818) KirtAGV LORETA Lopez [facility] PHYS: Germania Isaacs [place] [address] : 1975 AGE: 44 SEX: M LOC: B.ERS PHONE #: [phone] EXAM DATE: 12/16/2019 STATUS: PRE ER FAX #: [phone] RAD #: D/C DT PAGE 1 Signed Report Patient Name: VIMAL BARROSO Unit No: [id number] EXAMS: CPT CODE: [id number] CT HEAD/BRAIN W/O CONT 65976 <Continued> Orig Print D/T: S: 12/16/2019 (1821) LORETA Lopez NAME: [address] PHYS: Germania Isaacs [place] [address] : 1975 AGE: 44 SEX: M LOC: B.ERS PHONE #: [phone] EXAM DATE: 12/16/2019 STATUS: PRE ER FAX #: [phone] RAD #: D/C DT PAGE 2 Signed Report - XR CHEST 2 V 2019-12-12 FAX: Germania Engel 09:11:00 DELI ASSOCIATE [phone] Addis: E St: REG Patient Name: VIMAL BARROSO Unit No: [id number] EXAMS: CPT CODE: [id number] XR CHEST 2 V 69861 - XR CHEST 2 V LOCATION: T18 [...] 12/12/2019 (913) LORETA Lopez NAME: VIMAL BARROSO [address] [place] [address] PHYS: Germania Isaacs [place] [address] : 1975 AGE: 44 SEX: M LOC: B.ERS PHONE #: [phone] EXAM DATE: 12/12/2019 STATUS: REG ER FAX #: [phone] RAD NO: DC Dt: PAGE 1 Signed Report SPINE LUMBAR SACR 2017-04-08 [place] [address]:37:[id number] [id number] IMAGING REPORTPatient Name: Gustavo BARROSO of Service: [id number]: 41 Sex: M Order #: [id number] [facility] 1975 X-Ray Number: [id number] Record Number: [id number] Hospital Number: [id number] Physician: Agatha CROW Physician: RUBY TREVIÑO LUMBAR [...] Signed By: Ulises Pierson M.D., 04/08/2017 1:34 PMLegallnickie authenticated by EARLINE ANAYA 2017-04-08 13:34:45
[2022-05-02] MEDS ORDERED: LIDOCAINE 1% MPF 2 ML AMPULE ONE (00:18)
[2022-05-02] MEDS ORDERED: TRIAMCINOLONE ACETON 40 MG/ML VIAL ONE (00:18)
--- NOTE | 2022-05-02 00:38 | EDPHYS ---
Physician Documentation [facility] Name: Ruben Alamo Age: 46 yrs Sex: Male : 1975 Arrival Date: 05/01/2022 Time: 22:43 Bed 14 Private MD: ED Physician Roxi Barnes HPI: 05/01 23:18 This 46 yrs old Black Male presents to ER via Ambulatory with complaints of Headache. snw 23:18 The patient complains of pain to the top of head. The patient describes the headache as snw a pressure. Onset: The symptoms/episode began/occurred 1.5 day(s) ago, and became persistent. Severity of symptoms: At its worst the pain was moderate, "similar to past headaches". Headache History: Other pt has had increasing frequency of migraines x 6 months. The patient has experienced similar episodes in the past. It is unknown whether or not the patient has recently seen a physician. pt states he did fall from a ladder two days ago but denies striking head or LOC. Historical: - Allergies: 22:53 Iodine; ld1 22:53 SHELLFISH; ld1 - PMHx: 22:53 Chronic pain; ld1 - PSHx: 22:53 Spinal surgery; ld1 - Immunization history:: Adult Immunizations up to date, Client reports receiving the 2nd dose of the Covid vaccine. - Social history:: Smoking status: Patient denies any tobacco usage or history of. Patient/guardian denies using alcohol. ROS: 23:16 Constitutional: Negative for fever, chills, and weight loss, Eyes: Negative for injury, snw pain, redness, and discharge, ENT: Negative for injury, pain, and discharge, Neck: Negative for injury, pain, and swelling, Cardiovascular: Negative for chest pain, palpitations, and edema, Respiratory: Negative for shortness of breath, cough, wheezing, and pleuritic chest pain, Abdomen/GI: Negative for abdominal pain, nausea, vomiting, diarrhea, and constipation, Back: Negative for injury and pain, : Negative for injury, bleeding, discharge, and swelling, MS/Extremity: Negative for injury and deformity, Skin: Negative for injury, rash, and discoloration. 23:16 Neuro: Positive for headache. Exam: 23:16 Constitutional: This is a well developed, well nourished patient who is awake, alert, snw and in no acute distress. Head/Face: Normocephalic, atraumatic. Eyes: Pupils equal round and reactive to light, extra-ocular motions intact. Lids and lashes normal. Conjunctiva and sclera are non-icteric and not injected. Cornea within normal limits. Periorbital areas with no swelling, redness, or edema. ENT: Nares patent. No nasal discharge, no septal abnormalities noted. Tympanic membranes are normal and external auditory canals are clear. Oropharynx with no redness, swelling, or masses, exudates, or evidence of obstruction, uvula midline. Mucous membranes moist. Neck: Trachea midline, no thyromegaly or masses palpated, and no cervical lymphadenopathy. Supple, full range of motion without nuchal rigidity, or vertebral point tenderness. No Meningismus. + tight trapezius musculature Chest/axilla: Normal chest wall appearance and motion. Nontender with no deformity. No lesions are appreciated. Cardiovascular: Regular rate and rhythm with a normal S1 and S2. No gallops, murmurs, or rubs. Normal PMI, no JVD. No pulse deficits. Respiratory: Lungs have equal breath sounds bilaterally, clear to auscultation and percussion. No rales, rhonchi or wheezes noted. No increased work of breathing, no retractions or nasal flaring. Abdomen/GI: Soft, non-tender, with normal bowel sounds. No distension or tympany. No guarding or rebound. No evidence of tenderness throughout. Back: No spinal tenderness. No costovertebral tenderness. Full range of motion. Skin: Warm, dry with normal turgor. Normal color with no rashes, no lesions, and no evidence of cellulitis. MS/ Extremity: Pulses equal, no cyanosis. Neurovascular intact. Full, normal range of motion. Neuro: Awake and alert, GCS 15, oriented to person, place, time, and situation. Cranial nerves II-XII grossly intact. Motor strength 5/5 in all extremities. Sensory grossly intact. Cerebellar exam normal. Normal gait. Psych: Awake, alert, with orientation to person, place and time. Behavior, mood, and affect are within normal limits. Vital Signs: 22:52 BP 118 / 57; Pulse 70; Resp 18; Temp 97.5(TE); Pulse Ox 96% on R/A; Weight 129.27 kg; ld1 Height 5 ft. 4 in. (162.56 cm); Pain 8/10; 05/02 00:39 BP 120 / 75; Pulse 63; Resp 16; Pulse Ox 98% on R/A; jb4 05/01 22:52 Body Mass Index 48.92 (129.27 kg, 162.56 cm) ld1 Procedures: 00:25 Performed trigger point injection with Kenalog 40mg/ Lidocaine 1% 2ml IM. pt tolerated snw well. MDM: 05/01 23:05 Patient medically screened. snw 05/02 00:38 Data reviewed: vital signs, nurses notes. Data interpreted: Pulse oximetry: on room air snw is 96 %. Interpretation: acceptable. Counseling: I had a detailed discussion with the patient and/or guardian regarding: the historical points, exam findings, and any diagnostic results supporting the discharge/admit diagnosis, radiology results, the need for outpatient follow up, to return to the emergency department if symptoms worsen or persist or if there are any questions or concerns that arise at home. Special discussion: Based on the history and exam findings, there is no indication for further emergent testing or inpatient evaluation. I discussed with the patient/guardian the need to see the neurologist for further evaluation of the symptoms. I discussed with the patient/guardian the need to see the primary care provider for further evaluation of the symptoms. 05/01 23:16 Order name: CT Head C Spine snw 05/01 23:16 Order name: Chest Pa And Lat (2 Views) XRAY snw Administered Medications: 00:20 Drug: Kenalog (triamcinolone acetonide) 40 mg {Note: administered to affected area by jb4 ER provider..} Route: IM; Site: Other; 00:20 Drug: Lidocaine (1 %) 1 vials {Note: Administered by ER provider.} Volume: 5 ml; Route: jb4 Infiltration; Disposition: 01:34 Co-signature as Attending Physician, Roxi Barnes MD STAFF ATTESTATION STATEMENT I sd2 was immediately available on-site in the Emergency Department for consultation in the care of the patient. Roxi Barnes MD. Disposition Summary: 05/02/22 00:38 Discharge Ordered Location: Home snw Condition: Stable snw Diagnosis - Headache snw - Radiculopathy, cervical region snw Followup: snw - With: Emergency Department - When: As needed - Reason: Worsening of condition Discharge Instructions: - Discharge Summary Sheet snw - Cervical Radiculopathy snw - Cervicogenic Headache snw - Fall Prevention in the Home, Adult snw Forms: - Work release form snw - Medication Reconciliation Form snw - Thank You Letter snw - Antibiotic Education snw - Prescription Opioid Use snw Prescriptions: - orphenadrine citrate 100 mg Oral Tablet Sustained Release - take 1 tablet by ORAL route 2 times per day As needed; 20 tablet; Refills: 0, snw Product Selection Permitted Signatures: Dispatcher [employer] EDMS Kaylee Ewing, ANSLEY PORTAL ARCHITECT-Csnw Darnell Watkins RN RN jb4 Lamar Mercado RN RN ld1 Roxi Barnes MD MD sd2 Corrections: (The following items were deleted from the chart) 05/01 23:18 23:16 Constitutional: This is a well developed, well nourished patient who is awake, snw alert, and in no acute distress. Head/Face: Normocephalic, atraumatic. Eyes: Pupils equal round and reactive to light, extra-ocular motions intact. Lids and lashes normal. Conjunctiva and sclera are non-icteric and not injected. Cornea within normal limits. Periorbital areas with no swelling, redness, or edema. ENT: Nares patent. No nasal discharge, no septal abnormalities noted. Tympanic membranes are normal and external auditory canals are clear. Oropharynx with no redness, swelling, or masses, exudates, or evidence of obstruction, uvula midline. Mucous membranes moist. Neck: Trachea midline, no thyromegaly or masses palpated, and no cervical lymphadenopathy. Supple, full range of motion without nuchal rigidity, or vertebral point tenderness. No Meningismus. Chest/axilla: Normal chest wall appearance and motion. Nontender with no deformity. No lesions are appreciated. Cardiovascular: Regular rate and rhythm with a normal S1 and S2. No gallops, murmurs, or rubs. Normal PMI, no JVD. No pulse deficits. Respiratory: Lungs have equal breath sounds bilaterally, clear to auscultation and percussion. No rales, rhonchi or wheezes noted. No increased work of breathing, no retractions or nasal flaring. Abdomen/GI: Soft, non-tender, with normal bowel sounds. No distension or tympany. No guarding or rebound. No evidence of tenderness throughout. Back: No spinal tenderness. No costovertebral tenderness. Full range of motion. Skin: Warm, dry with normal turgor. Normal color with no rashes, no lesions, and no evidence of cellulitis. MS/ Extremity: Pulses equal, no cyanosis. Neurovascular intact. Full, normal range of motion. Neuro: Awake and alert, GCS 15, oriented to person, place, time, and situation. Cranial nerves II-XII grossly intact. Motor strength 5/5 in all extremities. Sensory grossly intact. Cerebellar exam normal. Normal gait. Psych: Awake, alert, with orientation to person, place and time. Behavior, mood, and affect are within normal limits. snw
--- NOTE | 2022-05-02 00:38 | ER ---
Nurse's Notes [facility] Name: Ruben Alamo Age: 46 yrs Sex: Male : 1975 Arrival Date: 05/01/2022 Time: 22:43 Bed 14 Private MD: Diagnosis: Headache;Radiculopathy, cervical region Presentation: 05/01 22:52 Chief complaint: Patient states: Headache since yesterday evening. Pt reports previous ld1 migraines - headache is similar to previous headache. Coronavirus screen: At this time, the client does not indicate any symptoms associated with coronavirus-19. Ebola Screen: No symptoms or risks identified at this time. Initial Sepsis Screen: Does the patient meet any 2 criteria? No. Patient's initial sepsis screen is negative. Does the patient have a suspected source of infection? No. Patient's initial sepsis screen is negative. Initial Sepsis Screen: Does the patient meet any 2 criteria?. Risk Assessment: Do you want to hurt yourself or someone else? Patient reports no desire to harm self or others. Onset of symptoms was May 01, 2022. 22:52 Method Of Arrival: Ambulatory ld1 22:52 Acuity: LIZBETH 3 ld1 Triage Assessment: 22:53 Headache History: The patient has had previous headaches and this one is similar to ld1 previous episodes. General: Appears in no apparent distress. comfortable, Behavior is calm, cooperative, appropriate for age. Pain: Complains of pain in face Pain does not radiate. Pain currently is 8 out of 10 on a pain scale. Quality of pain is described as throbbing, Pain began gradually, Is continuous. EENT: No signs and/or symptoms were reported regarding the EENT system. Neuro: Level of Consciousness is awake, alert, obeys commands, Oriented to person, place, time, situation. Cardiovascular: Capillary refill < 3 seconds Patient's skin is warm and dry. Respiratory: Airway is patent Respiratory effort is even, unlabored. GI: Abdomen is round non-distended. : No signs and/or symptoms were reported regarding the genitourinary system. Derm: No signs and/or symptoms reported regarding the dermatologic system. Musculoskeletal: No signs and/or symptoms reported regarding the musculoskeletal system. Historical: - Allergies: 22:53 Iodine; ld1 22:53 SHELLFISH; ld1 - PMHx: 22:53 Chronic pain; ld1 - PSHx: 22:53 Spinal surgery; ld1 - Immunization history:: Adult Immunizations up to date, Client reports receiving the 2nd dose of the Covid vaccine. - Social history:: Smoking status: Patient denies any tobacco usage or history of. Patient/guardian denies using alcohol. Screenin:00 Abuse screen: Denies threats or abuse. Nutritional screening: No deficits noted. jb4 Tuberculosis screening: No symptoms or risk factors identified. Fall Risk None identified. Assessment: 23:00 Reassessment: see triage assessment. jb4 05/02 00:39 Reassessment: Patient appears in no apparent distress at this time. Patient and/or jb4 family updated on plan of care and expected duration. Pain level reassessed. Patient is alert, oriented x 3, equal unlabored respirations, skin warm/dry/pink. Patient states feeling better. Vital Signs: 05/01 22:52 BP 118 / 57; Pulse 70; Resp 18; Temp 97.5(TE); Pulse Ox 96% on R/A; Weight 129.27 kg; ld1 Height 5 ft. 4 in. (162.56 cm); Pain 8/10; 05/02 00:39 BP 120 / 75; Pulse 63; Resp 16; Pulse Ox 98% on R/A; jb4 05/01 22:52 Body Mass Index 48.92 (129.27 kg, 162.56 cm) ld1 ED Course: 05/01 22:43 Patient arrived in ED. ja2 22:53 Triage completed. ld1 22:53 Arm band placed on right wrist. ld1 22:58 Kaylee Ewing FNP-C is PHCP. snw 22:58 Roxi Barnes MD is Attending Physician. snw 23:00 Patient has correct armband on for positive identification. Bed in low position. Call jb4 light in reach. Side rails up X 1. Client placed on continuous cardiac and pulse oximetry monitoring. NIBP monitoring applied. 23:37 Chest Pa And Lat (2 Views) XRAY In Process Unspecified. EDMS 23:47 CT Head C Spine In Process Unspecified. EDMS 05/02 00:02 Darnell Watkins, RN is Primary Nurse. jb4 00:56 No provider procedures requiring assistance completed. Patient did not have IV access jb4 during this emergency room visit. Administered Medications: 00:20 Drug: Kenalog (triamcinolone acetonide) 40 mg {Note: administered to affected area by jb4 ER provider..} Route: IM; Site: Other; 00:20 Drug: Lidocaine (1 %) 1 vials {Note: Administered by ER provider.} Volume: 5 ml; Route: jb4 Infiltration; Outcome: 00:38 Discharge ordered by MD. irvin 00:56 Discharged to home ambulatory. jb4 00:56 Condition: stable 00:56 Discharge instructions given to patient, Instructed on discharge instructions, follow up and referral plans. no drinking with medication, no driving heavy equipment, medication usage, Demonstrated understanding of instructions, follow-up care, medications, Prescriptions given X 1. 00:56 Patient left the ED. jb4 Signatures: Dispatcher [employer] EDMS Kaylee Ewing, CONSUMER CREDIT COUNSELOR-C CONSUMER CREDIT COUNSELOR-Csnw Darnell Watkins RN RN jb4 Lamar Mercado RN RN ld1 Sultana Feldman
[2022-05-02 04:28] VITALS: TEMP 97.5
[2022-05-02 04:31] VITALS: BP 120/75; O2SAT 98
--- NOTE | 2022-05-02 12:01 | RAD REPORT ---
EXAM DESCRIPTION: CT - Head C Spine Mpr Wo Con - 05/02/2022 4:19 am CLINICAL HISTORY: 46 years Male fall from ladder, headache COMPARISON: April 10, 2022 TECHNIQUE: Images were obtained in axial, sagittal, and coronal planes. One or more of the following dose optimizing techniques was utilized for this exam: Automated exposur e control, adjustment of the mA and/or kV according to patient size, and/or use of iterative reconstr uction technique. FINDINGS: CT head: Ventricular system appears normal. No abnormal areas of increased attenuation see n. No extra-axial fluid collections seen. No evidence for skull fracture. Sclerotic changes left mast oid air cells. Unremarkable paranasal sinuses. CT cervical spine: Metallic plate and screw device anteriorly C3-4 and C4-5 levels. Anterior and post erior fusion also noted at these levels. Intact odontoid and predental space. Prevertebral soft tissu es appear normal. Straightening cervical spine. Satisfactory alignment articular facets. Intact osteo chondral condyles intact C1. Posterior elements otherwise intact. No abnormality visualized lung apic es bilaterally. IMPRESSION: No acute intracranial abnormality. No evidence for hemorrhage, mass lesion, or large acu te infarction. No acute fracture or subluxation involving the cervical spine. Postsurgical changes C3-4 and C4-5. Electronically signed by: Rianna Barkley MD 05/02/2022 12:41 AM CDT Due to temporary technical issues with the PACS/Fluency reporting system, reports are being signed by the in house radiologists without review as a courtesy to insure prompt reporting. The interpreting radiologist is fully responsible for the content of the report.
--- NOTE | 2022-05-02 15:36 | RAD REPORT ---
EXAM DESCRIPTION: RAD - Chest Pa And Lat (2 Views) - 05/01/2022 11:35 pm CLINICAL HISTORY: The patient is 46 years old and is Male; PAIN TECHNIQUE: Frontal and lateral views of the chest. COMPARISON: No relevant prior studies available. FINDINGS: Lungs: Unremarkable. No consolidation. Pleural space: Unremarkable. No pneumothorax. Heart: Unremarkable. Mediastinum: Unremarkable. Bones/joints: Partially visualized cervical spinal fusion hardware. IMPRESSION: No acute findings in the chest. Electronically signed by: Rick Brown MD 05/02/2022 12:25 AM CDT Due to temporary technical issues with the PACS/Fluency reporting system, reports are being signed by the in house radiologists without review as a courtesy to insure prompt reporting. The interpreting radiologist is fully responsible for the content of the report.
== END 2022-05-02 00:56 | disposition home or self-care (01) ==
LOC: ER 22:40
DX: R51.9 Headache, unspecified (principal); M54.12 Radiculopathy, cervical region; G89.29 Other chronic pain; Z91.013 Allergy to seafood; Z91.048 Other nonmedicinal substance allergy status
CPT/HCPCS: 70450; 71046; 72125; 96372; 99283; J3301

== ENCOUNTER 2022-05-07 22:07 | Emergency (ER) | payer SELFPAY ==
--- OUTSIDE RECORDS SUMMARY | 2022-05-07 22:11 | XMS REPORT | Continuity of Care Document ---
:1975 Author Organization [facility] t Address [address] [place] [address] Care Team Providers Name Role Phone PCP, [...] rs active active ity of problems problems [facility] Lumbago Lumbago Problem Active 2017-11-07 M yunior with with 03:47:18 l sciatica, sciatica, Herm marcus left side left side Active Problem 11/07/2017 [facility] Body mass Body mass Problem Active 2017-11-07 Memoria index index 03:47:18 l (BMI) (BMI) Tavo 45.0-49.9, 45.0-49.9, adult adult Active Problem 11/07/2017 [facility] Other Other Problem Active 2017-11-07 Memor ia chronic chronic 03:47:18 l pain pain [place] Active Problem 11/07/2017 [facility] Allergies, Adverse Reactions, Alerts Allergy Allergy Status Severity Reaction(s) Onset Inactive Treating Comm ents Source Name Type Date Date Clinician No Known DA Active U 2019-0 [facility]05 [place] [facility] 00:00: [facility] 00 [facility] No Known DA Active U 2020-0 [facility] Allergie 3-05 [place] [facility] 00:00: Region[facility] 00 [facility] NO KNOWN Drug Active Univers ALLERGIE Class ity of S [facility] Social History Social Habit Start Date Stop Date Quantity Comments Source Exposure to 2022-04-13 2022-04-23 Not sure [facility] SARS-CoV-2 (event) 00:00:00 15:09:00 [facility] Sex Assigned At [birth year] [facility] 00:00:00 00:00:00 Medical Branch Smoking Status Start Date Stop Date Source Never smoker [facility] orial (LUF/BLANCA/SA) Tobacco smoking consumption [facility] Branch Medications Ordered Filled Start Stop Current Ordering Indication Dosage Frequency Signature Comments Components Source Medication Medication Date Date Medication? Clinician (SIG) Name Name ketorolac 2021- Yes 30mg 30 mg, Unive rs (TORADOL) 04-23 Intramuscu ity of injection 21:15: 09:14 lar, ONCE, [place] 30 mg 00 :00 1 dose, On [facility] Branch 04/23/22 at 1615, Routine metoclopram [...] Lukes 00:00: Memoria 00 l (LUF/LI V/SA) Floral 0 Yes Toussaint 1 tablet Enrique elkin 1-15 Irfan as needed l 00:00: Soma 2018-0 Yes Toussaint 1 tablet Memor ia 1-15 Irfan as needed l 00:00: Meloxicam 2018-0 Yes Toussaint 1 tablet Memoria 1-15 Irfan l 00:00: Floral 2018-0 Yes Toussaint 1 tablet Enrique elkin 1-15 Irfan as needed l 00:00: Soma 2018-0 Yes Toussaint 1 tablet Memor ia 1-15 Irfan as needed l 00:00: Meloxicam 2018-0 Yes Toussaint 1 tablet Memoria 1-15 Irfan l 00:00: Floral 2018-0 Yes Toussaint 1 tablet Enrique elkin [...] Source Body weight 2022-04-23 20:11:[address] [facility] BMI 2022-04-23 20:11:00 50.38 kg/m2 [facility] Systolic blood 2022-04-23 20:09:00 140 mm[Hg] Univer sity [facility] Diastolic blood 2022-04-23 20:09:00 81 [facility]Hg[facility] 2022-04-23 20:09:00 66 /min [facility] Body temperature 2022-04-23 20:09:00 36.72 Amisha [facility] Respiratory rate 2022-04-23 20:09:00 17 /min [facility] Body height 2022-04-23 20:09:00 162.6 cm [facility] [place] [facility] Oxygen saturation in 2022-04-23 20:09:00 97 /min [facility] Arterial blood by [facility] Pulse oximetry Branch Weight 2017-10-25 15:00:00 [facility] [place] Height 2017-10-25 15:00:00 [facility] [place] Temperature Oral (F) 2017-10-25 15:00:00 97.8 F [facility] Tavo Heart Rate 2017-10-25 15:00:00 [facility] [place] Diastolic (mm Hg) 2017-10-25 15:00:00 Mem orial Tavo Systolic (mm Hg) 2017-10-25 15:00:00 Enrique rial [place] Body Temperature 2017-10-21 12:00:00 97.5 F [facility] (LUF/BLANCA/SA) Respiratory Rate 2017-10-21 12:00:00 20 /min [facility] (F/BLANCA/SA) O2% BldC Oximetry 2017-10-21 12:00:00 98 % [facility] (LUF/BLANCA/SA) BP Systolic 2017-10-21 12:00:00 132 mm[Hg] [facility] (LUF/BLANCA/SA) BP Diastolic 2017-10-21 12:00:00 78 mm[Hg] [facility] (LUF/BLANCA/SA) Height 2017-10-21 12:00:00 64 in [facility] (LUF/BLANCA/SA) Weight Measured 2017-10-21 12:00:00 282.19 lbs [facility] S t [facility] (LUF/BLANCA/SA) BMI (Body Mass 2017-10-21 12:00:00 48.7 [facility]) [facility] (LUF/BLANCA/SA) Weight 2017-10-08 15:45:00 [facility] [place] Height 2017-10-08 15:45:00 [facility] [place] Temperature Oral (F) 2017-10-08 15:45:00 96.8 F [facility] [place] Heart Rate 2017-10-08 15:45:00 [facility] [place] Diastolic (mm Hg) 2017-10-08 15:45:00 Mem orial Tavo Systolic (mm Hg) 2017-10-08 15:45:00 Enrique rial Tavo Procedures Procedure Date / Time Performed Performing Clinician [facility] e CONSENT/REFUSAL FOR 2022-04-23 20:00:28 Doctor Unassigned, No Un [facility] DIAGNOSIS AND Name Medical Branch TREATMENT Encounters Start End Encounter Admission Attending Care Care Encounter Source Date/Time Date/Time Type Type Clinicians Facility Department ID 2021-06-20 Outpatient [id number] Memoria 14:21:52 [id number] Tavo [id number] 2021-06-20 Outpatient [id number] Memoria 14:21:45 [id number] Tavo [id number] 2021-05-30 Outpatient [id number] Memoria 15:44:20 [id number] Tavo [id number] 2020-01-20 Inpatient [facility] [id number] [facility] 15:25:00 [id number] [facility] 2019-12-16 Inpatient [facility] [id number] [facility] 17:49:00 [id number] [facility] 2019-12-12 Inpatient [facility] [id number] [facility] 08:32:00 [id number] [facility] 2019-11-27 Inpatient [facility] [id number] [facility] 07:33:00 [id number] [facility] 2022-04-23 2022-04-23 Emergency X RIDNIKI, [facility] ERT [id number] Univers 15:11:00 15:52:00 BO fu of [facility] 2022-04-23 2022-04-23 Emergency [place], [facility] [id number] Univers 15:11:00 15:52:00 Bo RUSSO [id number] [facility] [id number] [facility] [phone] [facility] 084 Branch 2021-09-14 2021-09-14 Outpatient FERGUSON_AURELIANO [facility] [id number] [place] 02:13:00 02:13[place] [id number] [facility] 2021-09-08 2021-09-08 Outpatient FERGUSON_AURELIANO [facility] [id number] [place] 02:19:00 02:19:00 [place] [id number] [facility] 2017-10-21 2017-10-[address] [facility] [id number] [facility] 11:51:00 14:48:00 [facility], [address], (LUF/[place] [address] 2017-10-21 2017-10-[address] [facility] [id number] 11:51:00 14:48:00 [facility] N Results Test Description Test Time Test Comments Results Result [facility] e Comments - CT HEAD/BRAIN 2019-12-16 Patient Name: W/O CONT 18:19:00 VIMAL BARROSO Unit No: [id number] EXAMS: CPT CODE: [id number] CT HEAD/BRAIN W/O CONT 49639 CLINICAL INFORMATION: Moderate frontal headaches. Coughing. Dictation [...] by: Deepak Tee MD CC: Germania Engel CHILD PSYCHIATRIST Dictated Date/Time: 12/16/2019 (1818) Technologist: Ibis Mata - Agency CTDI: 45.04 DLP: 757.79 Trnscrpt: 12/16/2019 (1818) KirtAGV LORETA Lopez [facility] PHYS: Germania Isaacs [place] [address] : 1975 AGE: 44 SEX: M LOC: [place] PHONE #: [phone] EXAM DATE: 12/16/2019 STATUS: PRE ER FAX #: [phone] RAD #: D/C DT PAGE 1 Signed Report Patient Name: VIMAL BARROSO Unit No: [id number] EXAMS: CPT CODE: [id number] CT HEAD/BRAIN W/O CONT 73754 <Continued> Orig Print D/T: S: 12/16/2019 (1821) LORETA Lopez NAME: [address] PHYS: Germania Isaacs [place] [address] : 1975 AGE: 44 SEX: M LOC: [place] PHONE #: [phone] EXAM DATE: 12/16/2019 STATUS: PRE ER FAX #: [phone] RAD #: D/C DT PAGE 2 Signed Report - XR CHEST 2 V 2019-12-12 FAX: Germania Engel 09:11:00 CHILD PSYCHIATRIST [phone] [place]: E St: REG Patient Name: VIMAL BARROSO Unit No: [id number] EXAMS: CPT CODE: [id number] XR CHEST 2 V 29796 - XR CHEST 2 V LOCATION: T18 [...] 12/12/2019 (913) LORETA Lopez NAME: VIMAL BARROSO [address] [place] [address] PHYS: Germania Isaacs [place] [address] : 1975 AGE: 44 SEX: M LOC: [place] PHONE #: [phone] EXAM DATE: 12/12/2019 STATUS: REG ER FAX #: [phone] RAD NO: DC Dt: PAGE 1 Signed Report SPINE LUMBAR SACR 2017-04-08 [place] [address]:37:[address] [id number] IMAGING REPORTPatient Name: Gustavo BARROSO of Service: [id number]: 41 Sex: M Order #: [id number] [facility] 1975 X-Ray Number: [id number] Record Number: [id number] Hospital Number: [id number] Physician: Agatha CROW Physician: RUBY TREVIÑO LUMBAR [...]
--- NOTE | 2022-05-07 23:20 | ER ---
Nurse's Notes [facility] Name: Ruben Alamo Age: 46 yrs Sex: Male : 1975 Arrival Date: 05/07/2022 Time: 22:10 Bed 10 Private MD: Diagnosis: Tinea pedis Presentation: 05/07 23:07 Chief complaint: Patient states: left foot swelling x1 day. Denies pain/injury. kb3 Coronavirus screen: Vaccine status: Patient reports receiving the 2nd dose of the covid vaccine. Client denies travel out of the [place] in the last 14 days. At this time, the client does not indicate any symptoms associated with coronavirus-19. Ebola Screen: Patient negative for fever greater than or equal to 101.5 degrees Fahrenheit, and additional compatible Ebola Virus Disease symptoms Patient denies exposure to infectious person. Patient denies travel to an Ebola-affected area in the 21 days before illness onset. No symptoms or risks identified at this time. Initial Sepsis Screen: Does the patient have a suspected source of infection? No. Patient's initial sepsis screen is negative. Risk Assessment: Do you want to hurt yourself or someone else? Patient reports no desire to harm self or others. Onset of symptoms was May 07, 2022. 23:07 Method Of Arrival: Ambulatory kb3 23:07 Acuity: LIZBETH 4 kb3 23:19 Initial Sepsis Screen: Does the patient meet any 2 criteria? No. Patient's initial kd3 sepsis screen is negative. Does the patient have a suspected source of infection? No. Patient's initial sepsis screen is negative. Triage Assessment: 23:09 General: Appears in no apparent distress. comfortable, Behavior is calm, cooperative. kb3 Pain: Denies pain. Historical: - Allergies: 23:09 Iodine; kb3 23:09 SHELLFISH; kb3 - Home Meds: 23:09 hydrocodone-acetaminophen 10-325 mg/15 mL(15 mL) Oral soln 15 mL every 6 hours [Active];kb3 - PMHx: 23:09 Chronic pain; kb3 - PSHx: 23:09 Spinal surgery; kb3 - Immunization history:: Adult Immunizations up to date, Client reports receiving the 2nd dose of the Covid vaccine, Last tetanus immunization: up to date. - Social history:: Smoking status: Patient denies any tobacco usage or history of. Patient/guardian denies using alcohol, street drugs. Screenin:19 Abuse screen: Denies threats or abuse. Denies injuries from another. Nutritional kd3 screening: No deficits noted. Tuberculosis screening: No symptoms or risk factors identified. Fall Risk None identified. Vital Signs: 23:07 BP 126 / 76; Pulse 59; Resp 20; Temp 97.9; Pulse Ox 100% ; Weight 127.01 kg; Height 5 kb3 ft. 4 in. (162.56 cm); Pain 0/10; 23:07 Body Mass Index 48.06 (127.01 kg, 162.56 cm) kb3 ED Course: 22:10 Patient arrived in ED. ja2 23:09 Triage completed. kb3 23:09 Arm band placed on right wrist. Patient placed in an exam room. kb3 23:12 Kaylee Ewing FNP-C [facility]. snw 23:12 Arturo Godoy MD is Attending Physician. snw 23:19 Corry Chou, RN is Primary Nurse. kd3 23:19 No provider procedures requiring assistance completed. kd3 23:27 Patient has correct armband on for positive identification. kd3 23:27 Patient did not have IV access during this emergency room visit. kd3 Administered Medications: 23:27 Drug: DiFLUcan (fluconazole) 200 mg Route: PO; kd3 23:27 Follow up: Response: No adverse reaction kd3 Medication: 23:19 VIS not applicable for this client. kd3 Outcome: 23:20 Discharge ordered by . snw 23:27 Discharged to home ambulatory. kd3 23:27 Condition: stable 23:27 Discharge instructions given to patient, Instructed on discharge instructions, follow up and referral plans. medication usage, Demonstrated understanding of instructions, follow-up care, medications, Prescriptions given X 1. 23:28 Patient left the ED. kd3 Signatures: Kaylee Ewing FNP-C CLINICAL DOCUMENTATION IMPROVEMENT SPECIALIST-Csnw Kelsea Feldmanica 2 Corry Chou, RN RN kd3 Alyssa Ford RN RN kb3
--- NOTE | 2022-05-07 23:20 | EDPHYS ---
Physician Documentation [facility] Name: Ruben Alamo Age: 46 yrs Sex: Male : 1975 Arrival Date: 05/07/2022 Time: 22:10 Bed 10 Private MD: [facility] Physician Arturo Godoy HPI: 05/07 23:26 This 46 yrs old Black Male presents to ER via Ambulatory with complaints of Feet snw Swelling. 23:26 The patient presents with swelling, cut to bottom of left foot, no injury. The snw complaints affect the left foot. Context: The problem was sustained at home, resulted from a chronic condition, the patient is able to ambulate. Onset: The symptoms/episode began/occurred gradually, and became persistent. Associated signs and symptoms: The patient has no apparent associated signs or symptoms. Severity of symptoms: At their worst the symptoms were mild, moderate. The patient has not experienced similar symptoms in the past. It is unknown whether or not the patient has recently seen a physician. Historical: - Allergies: 23:09 Iodine; kb3 23:09 SHELLFISH; kb3 - Home Meds: 23:09 hydrocodone-acetaminophen 10-325 mg/15 mL(15 mL) Oral soln 15 mL every 6 hours [Active];kb3 - PMHx: 23:09 Chronic pain; kb3 - PSHx: 23:09 Spinal surgery; kb3 - Immunization history:: Adult Immunizations up to date, Client reports receiving the 2nd dose of the Covid vaccine, Last tetanus immunization: up to date. - Social history:: Smoking status: Patient denies any tobacco usage or history of. Patient/guardian denies using alcohol, street drugs. ROS: 23:26 Constitutional: Negative for fever, chills, and weight loss, Eyes: Negative for injury, snw pain, redness, and discharge, ENT: Negative for injury, pain, and discharge, Neck: Negative for injury, pain, and swelling, Cardiovascular: Negative for chest pain, palpitations, and edema, Respiratory: Negative for shortness of breath, cough, wheezing, and pleuritic chest pain, Abdomen/GI: Negative for abdominal pain, nausea, vomiting, diarrhea, and constipation, Back: Negative for injury and pain, : Negative for injury, bleeding, discharge, and swelling, MS/Extremity: Negative for injury and deformity, Neuro: Negative for headache, weakness, numbness, tingling, and seizure, Psych: Negative for depression, anxiety, suicide ideation, homicidal ideation, and hallucinations. 23:26 Skin: Positive for swelling, of the left foot. Exam: 23:25 Constitutional: This is a well developed, well nourished patient who is awake, alert, snw and in no acute distress. Head/Face: Normocephalic, atraumatic. Eyes: Pupils equal round and reactive to light, extra-ocular motions intact. Lids and lashes normal. Conjunctiva and sclera are non-icteric and not injected. Cornea within normal limits. Periorbital areas with no swelling, redness, or edema. ENT: Nares patent. No nasal discharge, no septal abnormalities noted. Tympanic membranes are normal and external auditory canals are clear. Oropharynx with no redness, swelling, or masses, exudates, or evidence of obstruction, uvula midline. Mucous membranes moist. Neck: Trachea midline, no thyromegaly or masses palpated, and no cervical lymphadenopathy. Supple, full range of motion without nuchal rigidity, or vertebral point tenderness. No Meningismus. Chest/axilla: Normal chest wall appearance and motion. Nontender with no deformity. No lesions are appreciated. Cardiovascular: Regular rate and rhythm with a normal S1 and S2. No gallops, murmurs, or rubs. Normal PMI, no JVD. No pulse deficits. Respiratory: Lungs have equal breath sounds bilaterally, clear to auscultation and percussion. No rales, rhonchi or wheezes noted. No increased work of breathing, no retractions or nasal flaring. Abdomen/GI: Soft, non-tender, with normal bowel sounds. No distension or tympany. No guarding or rebound. No evidence of tenderness throughout. Back: No spinal tenderness. No costovertebral tenderness. Full range of motion. MS/ Extremity: Pulses equal, no cyanosis. Neurovascular intact. Full, normal range of motion. Neuro: Awake and alert, GCS 15, oriented to person, place, time, and situation. Cranial nerves II-XII grossly intact. Motor strength 5/5 in all extremities. Sensory grossly intact. Cerebellar exam normal. Normal gait. Psych: Awake, alert, with orientation to person, place and time. Behavior, mood, and affect are within normal limits. 23:25 Skin: Appearance: normal except for affected area, lesion(s), noted, and can be described as peeling, discolored to the plantar surface, cracked skin., probable tinea, located on the right foot and left foot. Vital Signs: 23:07 BP 126 / 76; Pulse 59; Resp 20; Temp 97.9; Pulse Ox 100% ; Weight 127.01 kg; Height 5 kb3 ft. 4 in. (162.56 cm); Pain 0/10; 23:07 Body Mass Index 48.06 (127.01 kg, 162.56 cm) kb3 MDM: 23:16 Patient medically screened. snw 23:23 Data reviewed: vital signs, nurses notes. Data interpreted: Pulse oximetry: on room air snw is 100 %. Interpretation: normal. Counseling: I had a detailed discussion with the patient and/or guardian regarding: the historical points, exam findings, and any diagnostic results supporting the discharge/admit diagnosis, the need for outpatient follow up, to return to the emergency department if symptoms worsen or persist or if there are any questions or concerns that arise at home. Special discussion: Based on the history and exam findings, there is no indication for further emergent testing or inpatient evaluation. I discussed with the patient/guardian the need to see the primary care provider for further evaluation of the symptoms. discussed need to let feet completely dry, spray anti-perspirent to bilateral feet and allow to dry completely before putting on socks. . Administered Medications: 23:27 Drug: DiFLUcan (fluconazole) 200 mg Route: PO; kd3 23:27 Follow up: Response: No adverse reaction kd3 Disposition: 23:43 Co-signature as Attending Physician, Arturo Godoy MD. [email or web address] Disposition Summary: 05/07/22 23:20 Discharge Ordered Location: Home snw Condition: Stable snw Diagnosis - Tinea pedis snw Followup: snw - With: Emergency Department - When: As needed - Reason: Worsening of condition Followup: snw - With: Private Physician - When: 2 - 3 days - Reason: Recheck today's complaints, Continuance of care, Re-evaluation by your physician Discharge Instructions: - Discharge Summary Sheet snw - Athlete's Foot snw Forms: - Medication Reconciliation Form snw - Thank You Letter snw - Antibiotic Education snw - Prescription Opioid Use snw Prescriptions: - Clotrimazole 1 % Topical Cream - Apply to affected area 1 application by TOPICAL route every 12 hours; 15 gram; snw Refills: 0, Product Selection Permitted Signatures: Kaylee Ewing, JACQUE[employer] Arturo Godoy MD MD [email or web address] Corry Chou, RN RN kd3 Alyssa Ford RN RN kb3
[2022-05-07] MEDS ORDERED: FLUCONAZOLE 100 MG TAB ONE (23:33)
[2022-05-08 03:15] VITALS: BP 126/76; TEMP 97.9; O2SAT 100
== END 2022-05-07 23:28 | disposition home or self-care (01) ==
LOC: ER 22:07
DX: B35.3 Tinea pedis (principal); Z91.013 Allergy to seafood; Z91.048 Other nonmedicinal substance allergy status
CPT/HCPCS: 99283

== ENCOUNTER 2022-06-03 01:31 | Emergency (ER) | payer SELFPAY ==
--- OUTSIDE RECORDS SUMMARY | 2022-06-03 01:35 | XMS REPORT | Continuity of Care Document ---
:1975 Author Organization [facility] [place] [facility] t Address [address] [place] [address] [place] [address] Care Team Providers Name Role Phone PCP, PATIENT DOES NOT HAVE A Primary Care Physician Unavaila ALBIN Le Attending Clinician Unavailable Albin Purvis Attending Clinician Kaycee Butt MD Attending Clinician CHER JIMÉNEZ Attending Clinician Unavailable Cher Jiménez DO Attending Clinician BO JONES Attending Clinician Unavailable Bo Hennessy Attending Clinician ELIJAH Attending Clinician Unavailable BETHAYN JORDAN Attending Clinician Unavailable Physician, No Primary or Family Admitting Clinician Unavaila saira NAVA Admitting Clinician Unavailable Payers Payer Name Policy Type Policy Number Effective Date Expiration Date S ource Problems Condition Condition Condition Status Onset Resolution Last Treating Co mments Source Name Details Category Date Date Treatment Clinician Date Backache Backache Problem [facility] l (LUF/LI V/SA) No known No known Disease Unive rs active active ity of problems problems [facility] Lumbago Lumbago Problem Active 2017-11-07 Me moria with with 03:47:18 l sciatica, sciatica, Herm marcus left side left side Active Problem 11/07/2017 Family Diagnostic Body mass Body mass Problem Active 2017-11-07 Memoria index index 03:47:18 l (BMI) (BMI) [place] 45.0-49.9, 45.0-49.9, adult adult Active Problem 11/07/2017 Family Diagnostic Other Other Problem Active 2017-11-07 Memor ia chronic chronic 03:47:18 l pain pain [place] Active Problem 11/07/2017 Family Diagnostic Allergies, Adverse Reactions, Alerts Allergy Allergy Status Severity Reaction(s) Onset Inactive Treating Comm ents Source Name Type Date Date Clinician SHELLFIS DRUG Active Unknown-Cmnt Un butch H INGREDI 8-16 ity of DERIVED 00:00: [place] [address] [place] [address] Kai Propensi Active Unknown - Uni vers h ty to See comments 8-16 ity of Derived adverse 00:00: [place] reaction 00 [facility] No Known DA Active U 2019-0 [facility] Allergie 3-05 Pol[facility] s 00:00: [facility] 00 [facility] No Known DA Active U 2020-0 [facility] Allergie 3-05 Polo s 00:00: Regiona [address] [place] [address] NO KNOWN Drug Active Univers ALLERGIE Class ity of S [facility] Social History Social Habit Start Date Stop Date Quantity Comments Source Exposure to 2022-05-20 2022-05-30 Not sure [facility] SARS-CoV-2 (event) 00:00:00 20:57:00 [facility] Sex Assigned At [birth year] [facility] 00:00:00 00:00:00 Smoking Status Start Date Stop Date Source Tobacco smoking consumption [facility] unknown Never smoker [facility] (LUF/BLANCA/SA) Medications Ordered Filled Start Stop Current Ordering Indication Dosage Frequency Signature Comments Components Source Medication Medication Date Date Medication? Clinician (SIG) Name Name crystal 2021- No 1{tbl} 1 tablet, Univers acetaminoph - 09-07 Oral, ity of en-caff 02:30: 02:22 ONCE, 1 [place] (ESGIC) 00 :00 dose, On Medical 50-325-40 05/30/22 Bran ch mg tablet 1 at 2130, tablet CHRISTINA leonard- Yes [id number] 1{tbl} Take 1 Univers acetaminoph 9-06 tablet by ity of en-caff 00:00: mouth [place] 50-325-40 00 every 6 Medical mg tablet (six) Branch hours as needed for Pain (scale 4-6) or Pain (scale 7-10). ondansetron 2021- Yes 4mg Q8H Take 1 Met hodi ODT 8-27 09-27 tablet (4 st (ZOFRAN-ODT 00:00: 04:59 mg total) Hospita ) 4 MG 00 :00 by mouth l disintegrat every 8 ing tablet (eight) hours as needed for nausea or vomiting for up to 30 days. LISINOPRIL Yes Take by Univ ers ORAL 8-16 mouth. ity of 21:45: [address] Branch HYDROcodone 0 Yes 1{tbl} Take 1 Un butch -acetaminop 8-16 tablet by ity of hen (NORCO) 21:45: mouth [place] 10-325 mg 20 every 6 Medical tablet (six) Branch hours as needed. LISINOPRIL 0 Yes Take by Univ ers ORAL 8-16 mouth. ity of 21:45: [place] [address] Medical Branch HYDROcodone 0 Yes 1{tbl} Take 1 Un butch -acetaminop 8-16 tablet by ity of hen (NORCO) 21:45: mouth [place] 10-325 mg 20 every 6 Medical tablet (six) Branch hours as needed. ketorolac 2021- Yes 30mg 30 mg, Unive rs (TORADOL) 04-23 Intramuscu ity of injection 21:15: 09:14 lar, ONCE, [place] 30 mg 00 :00 1 dose, On Medical [place] [facility] 04/23/22 at 1615, Routine metoclopram 0 2021- No 10mg 10 mg, Uni vers darren HCl 04-23 Intramuscu ity o f (REGLAN) 20:15: 20:45 [place] injection 00 :00 1 dose, On Medi shannan 10 mg [facility] 04/23/22 at 1515, CHRISTINA Hydrocodone 2017-0 Yes Toussaint 1 tablet Memoria -Acetaminop 2-14 Irfan as needed l hen 03:47: [place] Carisoprodo 2017-0 Yes Toussaint 1 tablet Memoria l 2-14 Irfan as needed l 03:47: [facility] Hydrocodone 2017-0 Yes Toussaint 1 tablet Memoria -Acetaminop 2-14 Irfan as needed l hen 03:47: [place] Carisoprodo 2017-0 Yes Toussaint 1 tablet Memoria l 2-14 Irfan as needed l 03:47: [place] Meloxicam 2017-0 Yes Toussaint 1 tablet Memoria 2-14 Irfan l 03:47: [facility] Meloxicam 2017-0 Yes Toussaint 1 tablet Memoria 2-14 Irfan l 03:47: [place] Acetaminoph 2017-0 Yes Toussaint 1 tablet Memoria en-Codeine 2-01 Irfan as needed l #3 00:00: Acetaminoph 2017-0 Yes Toussaint 1 tablet Memoria en-Codeine 2-01 Irfan as needed l #3 00:00: Prednisone Prednisone 2017-0 Yes 60mg QD [facility]oria 00 l (LUF/LI V/SA) Barataria 0 Yes Toussaint 1 tablet Enrique elkin 1-15 Irfan as needed l 00:00: Soma 2017-0 Yes Toussaint 1 tablet Memor ia 1-15 Irfan as needed l 00:00: Meloxicam 2017-0 Yes Toussaint 1 tablet Memoria 1-15 Irfan l 00:00: Barataria 2018-0 Yes Toussaint 1 tablet Enrique elkin 1-15 Irfan as needed l 00:00: Soma 2017-0 Yes Toussaint 1 tablet Memor ia 1-15 Irfan as needed l 00:00: Meloxicam 2018-0 Yes Toussaint 1 tablet Memoria 1-15 Irfan l 00:00: acetaminoph 0 Yes 1{tbl} Take 1 Tab Univers en-codeine 3-31 by mouth ity o f (TYLENOL-CO 00:00: every 4 [place] as DEINE #3) 00 (four) Medical 300-30 mg hours as Branch tablet needed for Pain (scale 4-6). acetaminoph Yes 1{tbl} Take 1 Tab Univers en-codeine 3-31 by mouth ity o f (TYLENOL-CO 00:00: every 4 [place] as DEINE #3) 00 (four) Medical 300-30 mg hours as Branch tablet needed for Pain (scale 4-6). acetaminoph Yes 1{tbl} Take 1 Tab Univers en-codeine 3-31 by mouth ity o f (TYLENOL-CO 00:00: every 4 [place] as DEINE #3) 00 (four) Medical 300-30 mg hours as Branch tablet needed for Pain (scale 4-6). Vital Signs Vital Name Observation Time Observation Value Comments Source Systolic blood 2022-05-31 01:59:00 128 mm[facility]Hg[facility] 2022-05-31 01:59:00 81 mm[Hg] [facility] Heart rate 2022-05-31 01:59:00 78 /min [facility] Body temperature 2022-05-31 01:59:00 36.94 Amisha [facility] Respiratory rate 2022-05-31 01:59:00 18 /min [facility] Body height 2022-05-31 01:59:00 165.1 cm [facility] Body weight 2022-05-31 01:59:00 127.007 kg [facility] BMI 2022-05-31 01:59:00 46.59 kg/m2 [facility] [place] [facility] Oxygen saturation in 2022-05-31 01:59:00 95 /min University of Arterial blood by [place] [facility] shannan Pulse oximetry Branch Systolic blood 2022-05-10 02:39:00 148 mm[Hg] Univer sity of pressure [place] [facility] Diastolic blood 2022-05-10 02:39:00 84 mm[Hg] Unive rsity of pressure [place] [facility] Heart rate 2022-05-10 02:39:00 70 /min [facility] [place] [facility] Body temperature 2022-05-10 02:39:00 37.56 Amisha [facility] [place] [facility] Respiratory rate 2022-05-10 02:39:00 18 /min [facility] [place] [facility] Body height 2022-05-10 02:39:00 162.6 cm [facility] [place] [facility] Body weight 2022-05-10 02:39:00 127.007 kg [facility] [place] [facility] BMI 2022-05-10 02:39:00 48.06 kg/m2 [facility] [place] [facility] Oxygen saturation in 2022-05-10 02:39:00 95 /min University of Arterial blood by [facility] [place] [facility] Pulse oximetry Branch Body weight 2022-04-23 20:11:00 133.131 kg [facility] [place] [facility] BMI 2022-04-23 20:11:00 50.38 kg/m2 [facility] [place] [facility] Systolic blood 2022-04-23 20:09:00 140 mm[Hg] Univer [facility]ity [facility] [place] [facility] Diastolic blood 2022-04-23 20:09:00 81 mm[Hg] Unive rsity of pressure [place] [facility] Heart rate 2022-04-23 20:09:00 66 /min [facility] [place] [facility] Body temperature 2022-04-23 20:09:00 36.72 Amisha [facility] [place] [facility] Respiratory rate 2022-04-23 20:09:00 17 /min [facility] [place] [facility] Body height 2022-04-23 20:09:00 162.6 cm [facility] [place] [facility] Oxygen saturation in 2022-04-23 20:09:00 97 /min University of Arterial blood by [facility] [place] [facility] Pulse oximetry Branch Systolic blood 2022-05-21 00:33:00 132 mm[Hg] [facility] [place] [facility] pressure Diastolic blood 2022-05-21 00:33:00 64 mm[Hg] [facility] pressure Heart rate 2022-05-21 00:33:00 64 /min [place] [facility] Oxygen saturation in 2022-05-21 00:33:00 98 /min [facility] Arterial blood by Pulse oximetry Body temperature 2022-05-20 23:53:12 36.17 Amisha [facility] Respiratory rate 2022-05-20 23:53:12 18 /min [facility] Body height 2022-05-20 23:52:00 162.6 cm [place] [facility] Body weight 2022-05-20 23:52:00 127.007 kg [place] [facility] BMI 2022-05-20 23:52:00 48.06 kg/m2 [place] [facility] Weight 2017-10-25 15:00:00 [facility] Height 2017-10-25 15:00:00 [facility] Temperature Oral (F) 2017-10-25 15:00:00 97.8 F [facility] Heart Rate 2017-10-25 15:00:00 [facility] Diastolic (mm Hg) 2017-10-25 15:00:00 [facility] Systolic (mm Hg) 2017-10-25 15:00:00 [facility] Body Temperature 2017-10-21 12:00:00 97.5 F [facility] (LUF/BLANCA/SA) Respiratory Rate 2017-10-21 12:00:00 20 /min [facility] (F/BLANCA/SA) O2% BldC Oximetry 2017-10-21 12:00:00 98 % [facility] (LUF/BLANCA/SA) BP Systolic 2017-10-21 12:00:00 132 mm[Hg] [facility] (LUF/BLANCA/SA) BP Diastolic 2017-10-21 12:00:00 78 mm[Hg] [facility] (LUF/BLANCA/SA) Height 2017-10-21 12:00:00 64 in [facility] (LUF/BLANCA/SA) Weight Measured 2017-10-21 12:00:00 282.19 lbs [facility] (LUF/BLANCA/SA) BMI (Body Mass 2017-10-21 12:00:[address] [facility] Index) [facility] (LUF/BLANCA/SA) Weight 2017-10-08 15:45:00 [facility] [place] Height 2017-10-08 15:45:00 [facility] [place] Temperature Oral (F) 2017-10-08 15:45:00 96.8 F [facility] Heart Rate 2017-10-08 15:45:00 [facility] [place] Diastolic (mm Hg) 2017-10-08 15:45:00 Mem orial [place] Systolic (mm Hg) 2017-10-08 15:45:00 Enrique rial [place] Procedures Procedure Date / Time Performed Performing Clinician [facility] e CONSENT/REFUSAL FOR 2022-05-31 01:55:15 Doctor Unassigned, No [facility] [place] DIAGNOSIS AND Name Medical Branch TREATMENT CT CERVICAL SPINE WO 2022-05-21 01:24:[address] [facility] [address] HEAD WO CONTRAST 2022-05-21 01:15:40 [facility] POC GLUCOSE 2022-05-21 00:33:00 [facility] NOTICE OF PRIVACY 2022-05-10 02:37:04 Doctor Unassigned, No [facility] [place] PRACTICES Name Medical Branch CONSENT/REFUSAL FOR 2022-05-10 02:35:02 Doctor Unassigned, No [facility] [place] DIAGNOSIS AND Name Medical Branch TREATMENT CONSENT/REFUSAL FOR 2022-04-23 20:00:28 Doctor Unassigned, No [facility] [place] DIAGNOSIS AND Name Medical Branch TREATMENT Plan of Care Planned Activity Planned Date Details Comments Source Future Scheduled 2022-05-25 [facility] 07:52:22 VACCINES (1 of 3 - 3-dose series) [code = HEPATITIS B VACCINES (1 of 3 - 3-dose series)] Future Scheduled 2022-05-25 Hepatitis C [facility] 07:52:22 screening (procedure) [code = 273518176] Future Scheduled 2022-05-25 COVID-19 VACCINE (3 [facility] Test 07:52:22 - Booster for Pfizer series) [code = COVID-19 VACCINE (3 - Booster for Pfizer series)] Future Scheduled 2022-05-25 [facility]ACCINE [facility] 07:52:22 [code = INFLUENZA VACCINE] Encounters Start End Encounter Admission Attending Care Care Encounter Source Date/Time Date/Time Type Type Clinicians Facility Department ID 2022-06-03 Outpatient [id number] Memoria 01:33:52 [id number] 65-43DE-92E 565-43DE- 9 l -[id number] [id number] Tavo [id number] 2022-05-30 Outpatient [id number] Memoria 20:55:52 [id number] Q05-712E- 9 l -7U32-1MA [id number] [id number] Tavo [id number] [id number] 2022-05-20 Outpatient [id number] [id number]-1 Memoria 18:55:15 1FAA-4CF3 AA-2KG3-48J FAA-4CF3- 8 l -80ED-A77 [id number] 0ED-A77A25 Tavo [id number] [id number] Outpatient [id number] Memoria 14:21:52 [id number] [id number]-948 0R1-9CXX- 9 l -9486-B77 6-[id number] 486-B77BBD [place] [id number] 4C4 1C14C4 2021-06-20 Outpatient [id number] Memoria 14:21:45 8434-49AE 34-49AE-95B 434-49AE- 9 l -95BD-57D D-42AW19O4C 5BD-57DA06 [facility] [id number] 032 [id number] 2021-05-30 Outpatient [id number] Memoria 15:44:20 DAF5-4596 F5-4596-BFE AF5-4596- B l -BFE1-51A [id number] FE1-51ACA1 Tavo [id number] 1BA [id number] 2020-01-20 Inpatient [facility] [id number] [facility] 15:25:00 21 [facility] 2019-12-16 Inpatient [facility] [id number] [facility] 17:49:00 32 [facility] 2019-12-12 Inpatient [facility] [id number] [facility] 08:32:00 83 [facility] 2019-11-27 Inpatient [facility] [id number] [facility] 07:33:00 06 [facility] 2022-05-30 2022-05-30 Emergency X [facility] ERT [id number] Univers 21:02:00 21:53:00 ALBIN [facility] 2022-05-30 2022-05-30 [facility] 1.2.461.044 [id number] Univers 21:02:00 21:53:00 Albin RUSSO 350.1.13.10 i ty [facility] 4.2.7.2.686 [facility] [id number] [address] 2022-05-20 2022-05-20 Emergency Bárbara 1.2.840.1 [id number] Methodi 19:29:00 21:04:00 Kaycee [address]asm[address] 3.430.2.7 Hospit a .3.096444 l .8 2022-05-20 2022-05-20 Emergency BÁRBARA [facility] [id number] [place] 00:00:00 00:00:00 KAYCEE RASMUSSEN [address] 2022-05-20 2022-05-20 Travel 1.2.840.1 1.2.590.400 [id number] Methodi 00:00:00 00:00:[address] 3.430.2.7 0.2.7.3.698 Ho spita .3.757586 084.8 l .8 2022-05-09 2022-05-09 Emergency [facility] [id number] Univers 21:45:00 21:46:00 [facility] 2022-05-09 2022-05-09 Emergency [facility] 1.2.840.114 [id number] Univers 21:45:00 21:46:00 Cher RUSSO 350.1.13.10 ity [facility] 4.2.7.2.686 [facility] [id number] [address] 2022-04-23 2022-04-23 Emergency X KAREN, [facility] ERT [id number] Univers 15:11:00 15:52:00 BO [facility] 2022-04-23 2022-04-23 Emergency [place], [facility] 1.2.936.034 [id number] Univers 15:11:00 15:52:00 Bo [facility]USSO [facility].10 [facility] 4.2.7.2.686 [facility] [id number] [address] 2021-09-14 2021-09-14 Outpatient FERGUSON_JO COH[facility] [id number] [place] 02:13:00 02:[place] [id number] [facility] 2021-09-08 2021-09-08 Outpatient FERGUSON_JO MEHOP [facility] [id number] [place] 02:19:00 02:19[place] [id number] [facility] 2017-11-01 2017-11-01 Outpatient Family Family [id number] eClinic 10:47:00 10:47:00 [facility] 2017-10-25 2017-10-25 Outpatient Family Family [id number] eClinic 09:00:00 09:00:00 [facility] Clinic 2017-10-21 2017-10-21 PAIN IN NIKKI, [facility] [id number] [facility] 11:51:00 14:48:00 [facility] N, [address], (HARPREETF/CAR[place] V/[place] [address] 2017-10-21 2017-10-21 PAIN IN NIKKI, [facility] [id number] 11:51:00 14:48:00 THORACIC BETHANY [facility] SPINE N 2017-10-08 2017-10-08 Outpatient Family Family [id number] eClinic 09:45:00 09:45:00 Diagnosti [facility] Clinic Results Test Description Test Time Test Comments Results Result Comments Source POC glucose 2022-05-21 00:34:00 Test Item Value Reference Range Interpretation Comme nts POC glucose (test code = 07041-5) 217 mg/dL 65-100 H Information Technology Account Manager Name: Zach Varela ID: [id number] Lab Interpretation (test code = Abnormal 28588-8) [facility] HEAD/BRAIN W/O [id number] 18:19:00 Patient Name: VIMAL BARROSO Unit No: [id number] EXAMS: CPT CODE: [id number] CT HEAD/BRAIN W/O CONT 44934 CLINICAL INFORMATION: Moderate frontal headaches. Coughing. Dictation Location: R 16 COMPARISON: No prior. Technique: CT was done in the usual fashion. Sagittal and coronal reconstructions. Appropriate dose reduction and image optimization technique was used. DLP 758 mGy-cm. FINDINGS: No area of foc al scalp swelling identified. The skull base and [...] CTDI: 45.04 DLP: 757.79 Trnscrpt: 12/16/2019 (1818) Barbara Lopez NAME: VIMAL BARROSO [address] [place] [address] PHYS: Germania Isaacs [place] [address] : 1975 AGE: 44 SEX: M LOC: EMILY PHONE #: [phone] EXAM DATE: 12/16/2019 STATUS: PREER FAX #: [phone] RAD #: D/C DT PAGE 1 Signed Report Patient Name: VIMAL BARROSO Unit No: [id number] EXAMS: CPT CODE: [id number] CT HEAD/BRAIN W/O CONT 63483 (Continued) Orig Print D/T: S: 12/16/2019 (182) [facility] Jessica NAME: VIMAL BARROSO [address] [place] [address] PHYS: Germania Isaacs NP [employer], [place] [address] : 1975 AGE: 44 SEX: M LOC: EMILY PHONE #: [phone] EXAM DATE: 12/16/2019 STATUS: PRE ER FAX #: [phone] RAD #: D/C DT PAGE 2 Signed Report- XR CHEST 2 [id number] 09:11:00 FAX: Germania Engel NP [phone] [place]: St: REG Patient Name: VIMAL BARROSO Unit No: [id number] EXAMS: CPT CODE: [id number] XR CHEST 2 V 79692 - XR CHEST 2 V LOCATION: T18 INDICATION:Cough The lungs are well expanded and free of infiltrates. The costophrenic recesses are sharp without effusion. The heart, mediastinum and bony structures are within normal limits. Cervical spine fusion plate noted. IMPRESSION: No active disease. at 0911 Reportedand signed by: Zach Rubi D.O. CC: Germania Engel NP Dictated Date/Time: 12/12/2019 (0911)Technologist: Shannan Schmitz Transcribed Date/Time: 12/12/2019 (09) By: Joanna Orig Print D/T: S: 12/12/2019 (0914) LORETA Lopez NAME: VIMAL BARROSO [address] [place] [address] Blvd PHYS: Germania Isaacs [employer] [place], [place] [address] : 1975 AGE: 44 SEX: M LOC: B.ERS PHONE #: [phone] EXAM DATE: 12/12/2019 STATUS: REG ER FAX #: [phone] RAD NO: DC Dt: PAGE 1 Signed ReportSPINE LUMBAR [id number] 13:37:[address] [address]EVYMNGTIMF IMAGING REPORTPatient Name: Lili BARROSO of Service: [id number]: 41 Sex: M Order #: [id number] [facility] 1975 X-Ray Number: [id number] Record Number: [id number] Hospital Number: [id number] Physician: Agatha CROW Physician: RUBY TREVIÑO LUMBAR SACR, 04/08/2017 1:18 PM:History: LBP (lower back pain) without Trauma/Injury. . Low back painwith decreased range of motion. Left lower extrem ity radiculopathy..Comparison: None.Technique: 6 views lumbar spineFindings/Impression:The lumbar vertebra are normal in height. There are 5 lumbar-type vertebrallevels. There is mild grade 1 retrolisthesis of L4 on L5 and L5 on S1.There is no fracture. The facet joints are aligned bilaterally.Electronically Signed By: Ulises Pierson M.D., 04/08/2017 1:34 PMLegally authenticated by EARLINE ANAYA 2017-04-08 13:34:45
[2022-06-03] MEDS ORDERED: TRAMADOL HCL 50 MG TAB ONE (02:22)
[2022-06-03] MEDS ORDERED: IBUPROFEN 400 MG TAB ONE ×2 (02:23→02:34)
[2022-06-03] MEDS ORDERED: HYDROCODONE/APAP 10/325 TAB ONE (02:34)
--- NOTE | 2022-06-03 03:01 | EDPHYS ---
Physician Documentation [facility] Name: Ruben Alamo Age: 46 yrs Sex: Male : 1975 Arrival Date: 06/03/2022 Time: 01:34 Bed 13 Private MD: ED Physician Tristin Lopez HPI: 06/03 02:16 This 46 yrs old Black Male presents to ER via Unassigned with complaints of Headache, rn Mouth Problem. 02:16 The patient presents with pain. The problem is located in the gums. Onset: The rn symptoms/episode began/occurred yesterday. Duration: The symptoms are continuous. Modifying factors: The symptoms are alleviated by nothing, the symptoms are aggravated by chewing, talking. Associated signs and symptoms: Pertinent positives: pain, Pertinent negatives: fever. Severity of symptoms: At their worst the symptoms were moderate, in the emergency department the symptoms are unchanged. The patient has not experienced similar symptoms in the past. The patient has not recently seen a physician. Pt reports pain to gums, no injury, no fever, rpeorts pain causing headache. Has hx of migraines and headaches. Reports not sure from tooth problem or if happened because he drank a small amount of vinegar to help his blood pressure. No sob or difficulty swallowing. . Historical: - Allergies: 02:16 Iodine; bb 02:16 SHELLFISH; bb 02:16 PENICILLINS; bb - Home Meds: 02:16 hydrocodone-acetaminophen 10-325 mg/15 mL(15 mL) Oral soln 15 mL every 6 hours [Active];bb - PMHx: 02:16 Chronic pain; bb - PSHx: 02:16 Spinal surgery; bb - Immunization history:: Client reports receiving the 2nd dose of the Covid vaccine, [employer]. - Social history:: Smoking status: Patient reports use of chewing tobacco. - Family history:: not pertinent. - Hospitalizations: : No recent hospitalization is reported. ROS: 02:16 Constitutional: Negative for fever, chills, and weight loss, Eyes: Negative for injury, rn pain, redness, and discharge, ENT: Negative for discharge Neck: Negative for injury, pain, and swelling, Cardiovascular: Negative for chest pain, palpitations, and edema, Respiratory: Negative for shortness of breath, cough, wheezing, and pleuritic chest pain, Abdomen/GI: Negative for abdominal pain, nausea, vomiting, diarrhea, and constipation, MS/Extremity: Negative for injury and deformity, Skin: Negative for injury, rash, and discoloration, Neuro: Negative for weakness, numbness, tingling, and seizure. Exam: 02:16 Constitutional: This is a well developed, well nourished patient who is awake, alert, rn and in no acute distress. Head/Face: Normocephalic, atraumatic. Eyes: Pupils equal round and reactive to light, extra-ocular motions intact. Lids and lashes normal. Conjunctiva and sclera are non-icteric and not injected. Cornea within normal limits. Periorbital areas with no swelling, redness, or edema. ENT: Poor dentition, no evidence of abscess, + mild tenderness along upper gumline without discoloration. no Drainage. Neck: Trachea midline, no thyromegaly or masses palpated, and no cervical lymphadenopathy. Supple, full range of motion without nuchal rigidity, or vertebral point tenderness. No Meningismus. Cardiovascular: Regular rate and rhythm with a normal S1 and S2. No gallops, murmurs, or rubs. Normal PMI, no JVD. No pulse deficits. Respiratory: No increased work of breathing, no retractions or nasal flaring. Neuro: Awake and alert, GCS 15, oriented to person, place, time, and situation. Cranial nerves II-XII grossly intact. Motor strength 5/5 in all extremities. Sensory grossly intact. Cerebellar exam normal. Normal gait. Vital Signs: 02:13 BP 150 / 91; Pulse 71; Resp 20 S; Temp 97.7(O); Pulse Ox 96% on R/A; Weight 127.01 kg bb (R); Height 5 ft. 4 in. (162.56 cm) (R); Pain 10/10; 03:24 BP 158 / 98; Pulse 56; Resp 14; Pulse Ox 98% on R/A; ja4 02:13 Body Mass Index 48.06 (127.01 kg, 162.56 cm) bb MDM: 01:34 Patient medically screened. rn 03:00 Differential diagnosis: dental caries, gingivitis, dental abscess. Data reviewed: vital rn signs, nurses notes, and as a result, I will discharge patient. Counseling: I had a detailed discussion with the patient and/or guardian regarding: the historical points, exam findings, and any diagnostic results supporting the discharge/admit diagnosis, the need for outpatient follow up, to return to the emergency department if symptoms worsen or persist or if there are any questions or concerns that arise at home. Response to treatment: the patient's symptoms have mildly improved after treatment, and as a result, I will discharge patient. Special discussion: I discussed with the patient/guardian in detail that at this point there is no indication for admission to the hospital. It is understood, however, that if the symptoms persist or worsen the patient needs to return immediately for re-evaluation. Based on the history and exam findings, there is no indication for further emergent testing or inpatient evaluation. I discussed with the patient/guardian the need to see a dentist for further evaluation of the symptoms. I discussed with the patient/guardian the need to see the primary care provider for further evaluation of the symptoms. Administered Medications: 02:34 Drug: Clindamycin 300 mg Route: PO; ja4 02:34 Drug: traMADol 50 mg Route: PO; ja4 02:34 Drug: Ibuprofen 800 mg Route: PO; ja4 Disposition Summary: 06/03/22 03:00 Discharge Ordered Location: Home rn Problem: new rn Symptoms: have improved rn Condition: Stable rn Diagnosis - Acute gingivitis rn Followup: rn - With: Private Physician - When: As needed - Reason: Recheck today's complaints, Re-evaluation by your physician Discharge Instructions: - Discharge Summary Sheet rn - Gingivitis rn Forms: - Medication Reconciliation Form rn - Thank You Letter rn - Antibiotic furniture stainer - Prescription Opioid Use rn Prescriptions: - Clindamycin HCl 300 mg Oral Capsule - take 1 capsule by ORAL route every 6 hours for 10 days; 40 capsule; Refills: 0, rn Product Selection Permitted Signatures: Katharine Humphrey RN Tristin Yen MD MD rn Allen, Jeremy, RN RN ja4
--- NOTE | 2022-06-03 03:01 | ER ---
Nurse's Notes [facility] Name: Ruben Alamo Age: 46 yrs Sex: Male : 1975 Arrival Date: 06/03/2022 Time: 01:34 Bed 13 Private MD: Diagnosis: Acute gingivitis Presentation: 06/03 02:13 Chief complaint: Patient states: pt c/o jaw, mouth, cheek pain and a headache since bb yesterday the pain is 07/03. Coronavirus screen: At this time, the client does not indicate any symptoms associated with coronavirus-19. Ebola Screen: No symptoms or risks identified at this time. Initial Sepsis Screen: Does the patient meet any 2 criteria? No. Patient's initial sepsis screen is negative. Does the patient have a suspected source of infection? No. Patient's initial sepsis screen is negative. Risk Assessment: Do you want to hurt yourself or someone else? Patient reports no desire to harm self or others. Onset of symptoms was June 02, 2022. 02:13 Method Of Arrival: Ambulatory bb 02:13 Acuity: LIZBETH 4 bb Historical: - Allergies: 02:16 Iodine; bb 02:16 SHELLFISH; bb 02:16 PENICILLINS; bb - Home Meds: 02:16 hydrocodone-acetaminophen 10-325 mg/15 mL(15 mL) Oral soln 15 mL every 6 hours [Active];bb - PMHx: 02:16 Chronic pain; bb - PSHx: 02:16 Spinal surgery; bb - Immunization history:: Client reports receiving the 2nd dose of the Covid vaccine, [employer]. - Social history:: Smoking status: Patient reports use of chewing tobacco. - Family history:: not pertinent. - Hospitalizations: : No recent hospitalization is reported. Screenin:18 Abuse screen: Denies threats or abuse. Nutritional screening: No deficits noted. bb Tuberculosis screening: No symptoms or risk factors identified. Fall Risk None identified. Assessment: 02:18 General: Appears in no apparent distress. uncomfortable, obese, Behavior is calm, bb cooperative. Pain: Complains of pain in mouth, jaw, left cheek area and head. Neuro: Level of Consciousness is awake, alert, obeys commands, Oriented to person, place, time, situation. Cardiovascular: Capillary refill < 3 seconds Patient's skin is warm and dry. Respiratory: Respiratory effort is even, unlabored, Respiratory pattern is regular. GI: No signs and/or symptoms were reported involving the gastrointestinal system. EENT: Poor dentition noted. Derm: Skin is dry, Skin is normal, Skin temperature is warm. Musculoskeletal: Circulation, motion, and sensation intact. Vital Signs: 02:13 BP 150 / 91; Pulse 71; Resp 20 S; Temp 97.7(O); Pulse Ox 96% on R/A; Weight 127.01 kg bb (R); Height 5 ft. 4 in. (162.56 cm) (R); Pain 10/10; 03:24 BP 158 / 98; Pulse 56; Resp 14; Pulse Ox 98% on R/A; ja4 02:13 Body Mass Index 48.06 (127.01 kg, 162.56 cm) ED Course: 01:34 Patient arrived in ED. ja2 01:34 Tristin Lopez MD is Attending Physician. rn 02:11 Norbert Nichole RN is Primary Nurse. ja4 02:16 Triage completed. bb 02:16 Arm band placed on Patient placed in an exam room, on a stretcher, on pulse oximetry. bb 02:18 Patient has correct armband on for positive identification. Bed in low position. Call bb light in reach. Side rails up X 1. Pulse ox on. NIBP on. Warm blanket given. Administered Medications: 02:34 Drug: Clindamycin 300 mg Route: PO; ja4 02:34 Drug: traMADol 50 mg Route: PO; ja4 02:34 Drug: Ibuprofen 800 mg Route: PO; ja4 Medication: 02:18 VIS not applicable for this client. bb Outcome: 03:00 Discharge ordered by . rn 03:24 Discharged to home ambulatory. ja4 03:24 Condition: stable 03:24 Discharge instructions given to patient, Instructed on discharge instructions, follow up and referral plans. medication usage. 03:25 Patient left the ED. ja4 Signatures: Katharine Humphrey RN RN bb Nieto, Roman, MD MD rn Alexander, Jessica ja2 Norbert Nichole RN RN ja4
[2022-06-03 08:30] VITALS: TEMP 97.7
[2022-06-03 08:33] VITALS: BP 158/98; O2SAT 98
== END 2022-06-03 03:25 | disposition home or self-care (01) ==
LOC: ER 01:31
DX: K05.00 Acute gingivitis, plaque induced (principal); G89.29 Other chronic pain; F17.220 Nicotine dependence, chewing tobacco, uncomplicated; Z88.0 Allergy status to penicillin; Z91.013 Allergy to seafood; Z91.048 Other nonmedicinal substance allergy status
CPT/HCPCS: 99283

== ENCOUNTER 2022-06-08 21:19 | Emergency (ER) | payer SELFPAY ==
--- OUTSIDE RECORDS SUMMARY | 2022-06-08 21:24 | XMS REPORT | Continuity of Care Document ---
:1975 Author Organization [facility] t Address [address] [place] [address] Care Team Providers Name Role Phone Asked, No Pcp Primary Care Physician Unavailable ALBIN ROSAS Attending Clinician Unavailable Albin Purvis Attending Clinician Kaycee Butt MD Attending Clinician CHER JIMÉNEZ Attending Clinician Unavailable Cher Jiménez DO Attending Clinician BO JONES Attending Clinician Unavailable Bo Hennessy Attending Clinician ELIJAH Attending Clinician Unavailable BETHANY JORDAN Attending Clinician Unavailable Physician, No Primary or Family Admitting Clinician Unavaila saira DELEON_SOFI Admitting Clinician Unavailable Payers Payer Name Policy Type Policy Number Effective Date Expiration Date S ource Problems Condition Condition Condition Status Onset Resolution Last Treating Co mments Source Name Details Category Date Date Treatment Clinician Date Backache Backache Problem [facility] (LUF/LI V/SA) No known No known Disease Unive rs active active ity of problems problems [facility] Lumbago Lumbago Problem Active 2017-11-07 M emoria with with 03:47:18 l sciatica, sciatica, Herm marcus left side left side Active Problem 11/07/2017 Family Diagnostic Body mass Body mass Problem Active 2017-11-07 Memoria index index 03:47:18 l (BMI) (BMI) [place] 45.0-49.9, 45.0-49.9, adult adult Active Problem 11/07/2017 Family Diagnostic Other Other Problem Active 2017-11-07 Memor ia chronic chronic 03:47:18 l pain pain [place] Active Problem 11/07/2017 Family Diagnostic Allergies, Adverse Reactions, Alerts Allergy Allergy Status Severity Reaction(s) Onset Inactive Treating Comm ents Source Name Type Date Date Clinician SHELLFIS DRUG Active Unknown-Cmnt Un butch H INGREDI 8-16 ity of DERIVED 00:00: [place] [address] [place] [address] Lorfis Propensi Active Unknown - Uni vers h ty to See comments 8-16 ity of Derived adverse 00:00: [place] reaction 00 [facility] No Known DA Active U 2020-0 [facility] Allergie 3-05 [place] [facility] 00:00: [facility] 00 [facility] No Known DA Active U 2020-0 [facility] Allergie 3-05 [place] s 00:00: Region[facility] 00 [facility] NO KNOWN Drug Active Univers ALLERGIE Class ity of S [facility] Social History Social Habit Start Date Stop Date Quantity Comments Source Exposure to 2022-05-20 2022-05-30 Not sure [facility] SARS-CoV-2 (event) 00:00:00 20:57:00 [facility] Sex Assigned At [birth year] [facility] 00:00:00 00:00:00 Smoking Status Start Date Stop Date Source Never smoker [facility] (LUF/BLANCA/SA) Tobacco smoking consumption [facility] unknown Medications Ordered Filled Start Stop Current Ordering Indication Dosage Frequency Signature Comments Components Source Medication Medication Date Date Medication? Clinician (SIG) Name Name crystal 2021- No 1{tbl} 1 tablet, Univers acetaminoph - 09-07 Oral, ity of en-caff 02:30: 02:22 ONCE, 1 [place] (ESGIC) 00 :00 dose, On Medical 50-325-40 05/30/22 Bran ch mg tablet 1 at 2130, tablet CHRISTINA leonard- Yes [id number] 1{tbl} Take 1 Univers acetaminoph 9-06 tablet by ity of en-caff 00:00: mouth [place] 50-325-40 00 every 6 Medical mg tablet (six) Branch hours as needed for Pain (scale 4-6) or Pain (scale 7-10). ondansetron 2021- Yes 4mg Q8H Take 1 Met hodi ODT 8-27 -27 tablet (4 st (ZOFRAN-ODT 00:00: 04:59 mg total) Hospita ) 4 MG 00 :00 by mouth l disintegrat every 8 ing tablet (eight) hours as needed for nausea or vomiting for up to 30 days. ondansetron 2021- Yes 4mg Q8H Take 1 Met hodi ODT 8-27 -27 tablet (4 st (ZOFRAN-ODT 00:00: 04:59 mg total) Hospita ) 4 MG 00 :00 by mouth l disintegrat every 8 ing tablet (eight) hours as needed for nausea or vomiting for up to 30 days. LISINOPRIL Yes Take by [facility] ers ORAL 8-16 mouth. ity of 21:45: [place] 20 Medical Branch HYDROcodone Yes 1{tbl} Take 1 Un butch -acetaminop 8-16 tablet by ity of [facility] (NORCO) 21:45: mouth [place] 10-325 mg 20 every 6 Medical tablet (six) Branch hours as needed. LISINOPRIL Yes Take by [facility] ers ORAL 8-16 mouth. ity of 21:45: [place] 20 Medical Branch HYDROcodone Yes 1{tbl} Take 1 Un butch -acetaminop 8-16 tablet by ity of hen (NORCO) 21:45: mouth [place] 10-325 mg 20 every 6 Medical tablet (six) Branch hours as needed. ketorolac 2021- Yes 30mg 30 mg, Unive rs (TORADOL) 04-23 Intramuscu ity of injection 21:15: 09:14 lar, ONCE, [place] 30 mg 00 :00 1 dose, On Medical [place] 04/23/22 at 1615, Routine metoclopram 2021- No 10mg 10 mg, Uni vers darren HCl 04-23 Intramuscu ity o f (REGLAN) 20:15: 20:45 [place] injection 00 :00 1 dose, On Medi shannan 10 mg Sun Branch 04/23/22 at 1515, CHRISTINA Carisoprodo Yes Toussaint 1 tablet Memoria l 2-14 Irfan as needed l 03:47: T[place] Meloxicam 0 Yes [place]aint 1 tablet Memoria 2-14 Irfan l 03:47: [place] Hydrocodone 0 Yes T[place]aint 1 tablet Memoria -Acetaminop 2-14 Irfan as needed l hen 03:47: [place] Carisoprodo 2017-0 Yes [place]aint 1 tablet Memoria l 2-14 Irfan as needed l 03:47: [place] Meloxicam Yes [place]aint 1 tablet Memoria 2-14 Irfan l 03:47: [place] Hydrocodone 2017-0 Yes [place]aint 1 tablet Memoria -Acetaminop 2-14 Irfan as needed l hen 03:47: Tavo Acetaminoph Yes Toussaint 1 tablet Memoria en-Codeine 2-01 Irfan as needed l #3 00:00: Acetaminoph 2017-0 Yes T[place]aint 1 tablet Memoria en-Codeine 2-01 Irfan as needed l #3 00:00: Prednisone Prednisone Yes 60mg QD C [facility] 10[facility]21 [facility] 00:[facility]: Memoria 00 l (LUF/LI V/SA) [place] 2018-0 Yes Toussaint 1 tablet Enrique elkin 1-15 Irfan as needed l 00:00: [place] 2018-0 Yes Toussaint 1 tablet Memor ia 1-15 Irfan as needed l 00:00: Meloxicam 2018-0 Yes Toussaint 1 tablet Memoria 1-15 Irfan l 00:00: [place] 2018-0 Yes Toussaint 1 tablet Enrique elkin [...] Source Systolic blood 2022-05-31 01:59:00 128 mm[Hg] Univer sity [facility] Diastolic blood 2022-05-31 01:59:00 81 mm[Hg] Unive [facility] Heart rate 2022-05-31 01:59:00 78 /min [facility] Body temperature 2022-05-31 01:59:00 36.94 Amisha [facility] Respiratory rate 2022-05-31 01:59:00 18 /min [facility] [place] [facility] Body height 2022-05-31 01:59:00 165.1 cm [facility] [place] [facility] Body weight 2022-05-31 01:59:00 127.007 kg [facility] [place] [facility] BMI 2022-05-31 01:59:00 46.59 kg/m2 [facility] [place] [facility] Oxygen saturation in 2022-05-31 01:59:00 95 /min University of Arterial blood by [place] ezCater shannan Pulse oximetry Branch Systolic blood 2022-05-10 02:39:00 148 mm[Hg] Univer sity of pressure [place] [facility] Diastolic blood 2022-05-10 02:39:00 84 mm[Hg] Unive rsity of [facility] Medical Branch Heart rate 2022-05-10 02:39:00 70 /min [facility] [place] [facility] Body temperature 2022-05-10 02:39:00 37.56 Amisha [facility] [place] [facility] Respiratory rate 2022-05-10 02:39:00 18 /min [facility] [place] [facility] Body height 2022-05-10 02:39:00 162.6 cm [facility] [place] [facility] Body weight 2022-05-10 02:39:00 127.007 kg [facility] [place] [facility] BMI 2022-05-10 02:39:00 48.06 kg/m2 [facility] [place] [facility] Oxygen saturation in 2022-05-10 02:39:00 95 /min University of Arterial blood by [place] ezCater shannan Pulse oximetry Branch Body weight 2022-04-23 20:11:00 133.131 kg [facility] [place] [facility] BMI 2022-04-23 20:11:00 50.38 kg/m2 [facility] [place] [facility] Systolic blood 2022-04-23 20:09:00 140 mm[Hg] Univer sity of pressure [place] [facility] Diastolic blood 2022-04-23 20:09:00 81 mm[Hg] Unive rsity of pressure [place] [facility] Heart rate 2022-04-23 20:09:00 66 /min [facility] [place] [facility] Body temperature 2022-04-23 20:09:00 36.72 Amisha [facility] Respiratory rate 2022-04-23 20:09:00 17 /min [facility] Body height 2022-04-23 20:09:00 162.6 cm [facility] Oxygen saturation in 2022-04-23 20:09:00 97 /min University Arterial blood by [facility] Pulse oximetry Branch Systolic blood 2022-05-21 00:33:00 132 mm[Hg] [facility] pressure Diastolic blood 2022-05-21 00:33:00 64 mm[Hg] [facility] pressure Heart rate 2022-05-21 00:33:00 64 /min [facility] Oxygen saturation in 2022-05-21 00:33:00 98 /min [facility] Arterial blood by Pulse oximetry Body temperature 2022-05-20 23:53:[address] [facility] Respiratory rate 2022-05-20 23:53:12 18 /min [facility] Body height 2022-05-20 23:52:00 162.6 cm [facility] Body weight 2022-05-20 23:52:00 127.007 kg [facility] BMI 2022-05-20 23:52:00 48.06 kg/m2 [facility] Weight 2017-10-25 15:00:00 [facility] Height 2017-10-25 15:00:00 [facility] Temperature Oral (F) 2017-10-25 15:00:00 97.8 F [facility] Heart Rate 2017-10-25 15:00:00 [facility] [place] Diastolic (mm Hg) 2017-10-25 15:00:00 [facility] Tavo Systolic (mm Hg) 2017-10-25 15:00:00 [facility] [place] BMI (Body Mass 2017-10-21 12:00:[address] [facility] (LUF/BLANCA/SA) Body Temperature 2017-10-21 12:00:00 97.[address] [facility]/SA) Respiratory Rate 2017-10-21 12:00:00 20 /min [facility] (LUF/BLANCA/SA) O2% BldC Oximetry 2017-10-21 12:00:00 98 % [facility] (LUF/BLANCA/SA) BP Systolic 2017-10-21 12:00:00 132 mm[Hg] [facility] (LUF/BLANCA/SA) BP Diastolic 2017-10-21 12:00:00 78 mm[Hg] [facility] (LUF/BLANCA/SA) Height 2017-10-21 12:00:00 64 in [facility] (LUF/BLANCA/SA) Weight Measured 2017-10-21 12:00:00 282.19 lbs MOUSTAPHA Simental [facility] (LUF/BLANCA/SA) Weight 2017-10-08 15:45:00 [facility] [place] Height 2017-10-08 15:45:00 [facility] [place] Temperature Oral (F) 2017-10-08 15:45:00 96.8 F [facility] [place] Heart Rate 2017-10-08 15:45:00 [facility] [place] Diastolic (mm Hg) 2017-10-08 15:45:00 Mem orial [place] Systolic (mm Hg) 2017-10-08 15:45:00 Enrique rial Tavo Procedures Procedure Date / Time Performed Performing Clinician [facility] CONSENT/REFUSAL FOR 2022-05-31 01:55:15 Doctor Unassigned, No [facility] [place] DIAGNOSIS AND Name Medical Branch TREATMENT CT CERVICAL SPINE WO 2022-05-21 01:24:[facility]AST 2022-05-21 01:15:[address] [facility] POC GLUCOSE 2022-05-21 00:33:00 [facility] NOTICE OF PRIVACY 2022-05-10 02:37:04 Doctor Unassigned, No [facility] [place] PRACTICES Name Medical Branch CONSENT/REFUSAL FOR 2022-05-10 02:35:02 Doctor Unassigned, No [facility] [place] DIAGNOSIS AND Name Medical Branch TREATMENT CONSENT/REFUSAL FOR 2022-04-23 20:00:28 Doctor Unassigned, No [facility] [place] DIAGNOSIS AND Name Medical Branch TREATMENT Plan of Care Planned Activity Planned Date Details Comments Source Future Scheduled 2022-05-25 [facility] 07:52:22 VACCINES (1 of 3 - 3-dose series) [code = HEPATITIS B VACCINES (1 of 3 - 3-dose series)] Future Scheduled 2022-05-25 [facility] 07[facility]52[facility]22 screening (procedure) [code = 770940180] Future Scheduled 2022-05-25 COVID-19 VACCINE (3 [facility] 07:52:22 - Booster for Pfizer series) [code = COVID-19 VACCINE (3 - Booster for Pfizer series)] Future Scheduled 2022-05-25 [facility]ACCINE [facility] 07:52:22 [code = INFLUENZA VACCINE] Future Scheduled 2022-05-25 [facility] 07[facility]52:22 VACCINES (1 of 3 - 3-dose series) [code = HEPATITIS B VACCINES (1 of 3 - 3-dose series)] Future Scheduled 2022-05-25 [facility] 07:52:22 screening (procedure) [code = 639801608] Future Scheduled 2022-05-25 COVID-19 VACCINE (3 [facility] Test 07:52:22 - Booster for Pfizer series) [code = COVID-19 VACCINE (3 - Booster for Pfizer series)] Future Scheduled 2022-05-25 INFLUENZA VACCINE [facility] Test 07:52:22 [code = INFLUENZA VACCINE] Encounters Start End Encounter Admission Attending Care Care Encounter Source Date/Time Date/Time Type Type Clinicians Facility Department ID 2022-06-08 Outpatient [id number] Memoria 21:22:44 [id number]-[id number] 44B-4BC4- 8 l -819B-E8C [id number] Tavo [id number] [id number] 2022-06-03 Outpatient [id number] [id number] Memoria 01:33:52 4565-43DE 65-43DE-92E 565-43DE- 9 l -63V0-256 [id number] 2L4-993CX7 Tavo [id number] 2022-05-30 Outpatient [id number] [id number] Memoria 20:55:52 6C69-305E 39-438E-9B8 L03-765O- 9 l -2J23-7DJ 0-1KXR0E6SL R87-1YRU1T Tavo [id number] F41 4BEF41 2022-05-20 Outpatient [id number] A21D-1 Memoria 18:55:15 1FAA-4CF3 AA-7CU4-84T FAA-4CF3- 8 l -80ED-A77 [id number] 0ED-A77A25 Tavo [id number] 6422-09-27 Outpatient [id number] Memoria 14:21:52 59G3-3XAZ F0-4CEA-948 4T6-0UCM- 9 l -9486-B77 6-B53EXI5R0 486-B77BBD Tavo [id number] 4C4 1C14C4 2021-06-20 Outpatient [id number] Memoria 14:21:45 8434-49AE 34-49AE-95B 434-49AE- 9 l -95BD-57D D-02RD14A2J 5BD-57DA06 Tavo [id number] 032 X4N006 2021-05-30 Outpatient [id number] Memoria 15:44:20 DAF5-4596 F5-4596-BFE AF5-4596- B l -BFE1-51A 1-76LSP74KE FE1-51ACA1 [place] [id number] 1BA [id number] 2020-01-20 Inpatient [facility] [id number] [facility] 15:25:00 21 [facility] 2019-12-16 Inpatient [facility] [id number] [facility] 17:49:00 32 [facility] 2019-12-12 Inpatient [facility] [id number] [facility] 08:32:00 83 [facility] 2019-11-27 Inpatient [facility] [id number] [facility] 07:33:00 06 [facility] 2022-05-30 2022-05-30 Emergency X JASBIR, [facility] ERT [id number] Univers 21:02:00 21:53:00 ALBIN ibrahim [facility] 2022-05-30 2022-05-30 Emergency Jasbir ALSY [id number] [facility] 21:02:00 21:53:00 Albin RUSSO 350.1.13.10 i ty [facility] 4.2.7.2.686 [facility] [id number] [address] 2022-05-20 2022-05-20 Emergency Bárbara 1.2.840.1 [id number] Methodi 19:29:00 21:04:[address]ce[address] 3.430.2.7 Hospit a .3.442253 l .8 2022-05-20 2022-05-20 Emergency Bárbara 1.2.840.1 [id number] Methodi 19:29:00 21:04:[address] 3.430.2.7 Hospit a .3.587878 l .8 2022-05-20 2022-05-20 Travel 1.2.840.1 1.2.781.632 [id number] Methodi 00:00:00 00:00:[address] 3.430.2.7 0.2.7.3.698 Ho spita .3.075862 084.8 l .8 2022-05-20 2022-05-20 Travel 1.2.840.1 1.2.458.216 [id number] Methodi 00:00:00 00:00:[address] 3.430.2.7 0.2.7.3.698 Ho spita .3.531092 084.8 l .8 2022-05-09 2022-05-09 Emergency X JESSY ALSY ERT [id number] Univers 21:45:00 21:46:00 CHER patrice [facility] 2022-05-09 2022-05-09 Emergency Jessy [facility] 1.2.840.114 [id number] Univers 21:45:00 21:46:00 Cher RUSSO 350.1.13.10 ity [facility] 4.2.7.2.686 [facility] [id number] [place] [id number] Branch 2022-04-23 2022-04-23 Emergency X RIDDLE, [facility] ERT [id number] Univers 15:11:00 15:52:00 BO hancock y [facility] 2022-04-23 2022-04-23 Emergency [place], [facility] 1.2.099.779 [id number] Univers 15:11:00 15:52:00 Bo RUSSO 350.1.13.10 ity [facility] 4.2.7.2.686 [facility] [id number] [place] [id number] Branch 2021-09-14 2021-09-14 Outpatient FERGUSON_JO [facility] [id number] [place] 02:13:00 02:13[place] [id number] [facility] 2021-09-08 2021-09-08 Outpatient FERGUSON_JO [facility] 117 [id number] [place] 02:19:00 02:19:00 [place] [id number] [facility] 2017-11-01 2017-11-01 Outpatient Family Family [id number] eClinic 10:47:00 10:47:00 [facility] 2017-10-25 2017-10-25 Outpatient Family Family [id number] eClinic 09:00:00 09:00:00 [facility] Clinic 2017-10-21 2017-10-21 PAIN IN NIKKI [facility] [id number] [facility] 11:51:00 14:48:00 THORACIC BETHANY [facility], [address], (LUF/[place] [address] 2017-10-21 2017-10-21 PAIN IN NIKKI [facility] [id number] 11:51:00 14:48:00 THORACIC BETHANY TENISHA [facility] SPINE N 2017-10-08 2017-10-08 Outpatient Family Family [id number] eClinic 09:45:00 09:45:00 [facility] Clinic Results Test Description Test Time Test Comments Results Result Comments Source POC glucose 2022-05-21 00:34:00 Test Item Value Reference Range Interpretation Comme nts POC glucose (test code = 65025-0) 217 mg/dL 65-100 H Nursing Program Director Name: Sofi Varela ID: [id number] Lab Interpretation (test code = Abnormal 38330-8) [facility] [id number] 00:34:00 Test Item Value Reference Range Interpretation Comments POC glucose (test code = 217 mg/dL 65-100 H Ope rator Name: Sofi [id number]) BinosDevice ID: [id number] Lab Interpretation (test Abnormal code = 82919-5) [facility]- CT HEAD/BRAIN W/O [id number] 18:19:00 Patient Name: VIMAL BARROSO Unit No: [id number] EXAMS: CPT CODE: [id number] CT HEAD/BRAIN W/O CONT 13648 CLINICAL INFORMATION: Moderate frontal headaches. Coughing. Dictation Location: R 16 COMPARISON:No prior. Technique: CT was done in the usual fashion. Sagittal and coronal reconstructions. Appropriate dose reduction and image optimization technique was used. DLP 758 mGy-cm. FINDINGS: No area of fo shannan scalp swelling identified. The skull base and [...] 45.04 DLP: 757.79 Trnscrpt: 12/16/2019 (1818) KirtAGV [facility] Jessica NAME: VIMAL BARROSO [address] [place] [address] PHYS: Germania Isaacs NP, [place] [address] : 1975 AGE: 44 SEX: M LOC: EMILY PHONE #: [phone] EXAM DATE: 12/16/2019 STATUS: PRE ERFAX #: [phone] RAD #: D/C DT PAGE 1 Signed Report Patient Name: VIMAL BARROSO Unit No: [id number] EXAMS: CPT CODE: [id number] CT HEAD/BRAIN W/O CONT 21612 (Continued) Orig Print D/T: S: 12/16/2019(182) [facility] Jessica NAME: VIMAL BARROSO [address] [place] [address] Bl PHYS: Germania Isaacs NP [place] [address] : 1975 AGE: 44 SEX: M LOC: EMILY PHONE #: [phone] EXAM DATE: 12/16/2019 STATUS: PRE ER FAX #: [phone] RAD #: D/C DT PAGE 2 Signed Report- XR CHEST 2 [id number] 09:11:00 FAX: Germania Engel NP [phone] [place]: St: REG Patient Name: VIMAL BARROSO Unit No: [id number] EXAMS: CPT CODE: [id number] XR CHEST 2 V 01216 - XR CHEST 2 V LOCATION: T18 INDICATION:Cough The lungs are well expanded and free of infiltrates. The costophrenic recesses are sharp without effusion. The heart, mediastinum and bony structures are within normal limits. Cervical spine fusion plate noted. IMPRESSION: No active disease. at 0911 Reportedand signed by: Sofi Rubi D.O. CC: Germania Engel CLOTH MERCERIZING SUPERVISOR Dictated Date/Time: 12/12/2019 (09)Technologist: Shannan Schmitz Transcribed Date/Time: 12/12/2019 (910) By: Joanna Orig Print D/T: S: 12/12/2019 (0914) LORETA Lopez NAME: VIMAL BARROSO [address] [place] [address] Bl PHYS: Lore Isaacs, [place] [address] : 1975 AGE: 44 SEX: M LOC: B.ERS PHONE #: [phone] EXAM DATE: 12/12/2019 STATUS: REG ER FAX #: [phone] RAD NO: DC Dt: PAGE 1 Signed ReportSPINE LUMBAR EQMX1858-75-30 13:37:[address] [address]HCQIDNPTKW IMAGING REPORTPatient Name: Lili BARROSO of Service: [id number]: 41 Sex: M Order #: [id number] [facility] 1975 X- Ray Number: [id number] Record Number: [id number] Hospital Number: [id number] Physician: Agatha CROW Physician: RUBY TREVIÑO LUMBAR SACR, 04/08/2017 1:18 PM:History: LBP (lower back pain) without Trauma/Injury. . Low back painwith decreased range of motion. Left lower extre mity radiculopathy..Comparison: None.Technique: 6 views lumbar spineFindings/Impression:The lumbar vertebra are normal in height. There are 5 lumbar-type vertebrallevels. There is mild grade 1 retrolisthesis of L4 on L5 and L5 on S1.There is no fracture. The facet joints are aligned bilaterally.Electronically Signed By: Ulises Pierson M.D., 04/08/2017 1:34 PMLegally authenticated by EARLINE ANAYA 2017-04-08 13:34:45
--- NOTE | 2022-06-08 21:40 | ER ---
Nurse's Notes [facility] Name: Ruben Alamo Age: 46 yrs Sex: Male : 1975 Arrival Date: 06/08/2022 Time: 21:22 Bed 13 Private MD: Diagnosis: Other specified disorders of teeth and supporting structures Presentation: 06/08 21:30 Chief complaint: Patient states: "My whole face hurt and my mouth, my head. It started tw5 off in my mouth, I think it was my tooth, then it was my gums. Now it is all aching.". Coronavirus screen: Vaccine status: Patient reports receiving the 2nd dose of the covid vaccine. [facility]. Ebola Screen: Patient negative for fever greater than or equal to 101.5 degrees Fahrenheit, and additional compatible Ebola Virus Disease symptoms Patient denies exposure to infectious person. Patient denies travel to an Ebola-affected area in the 21 days before illness onset. Initial Sepsis Screen: Does the patient meet any 2 criteria? No. Patient's initial sepsis screen is negative. Does the patient have a suspected source of infection? No. Patient's initial sepsis screen is negative. Risk Assessment: Do you want to hurt yourself or someone else? Patient reports no desire to harm self or others. Onset of symptoms is unknown. 21:30 Method Of Arrival: Ambulatory tw5 21:30 Acuity: LIZBETH 4 tw5 Triage Assessment: 21:32 Headache History: The patient has had previous headaches and this one is different than tw5 previous episodes. General: Appears uncomfortable, Behavior is calm, cooperative, appropriate for age. Pain: Pain currently is 10 out of 10 on a pain scale. Pain began gradually, Also complains of inability to concentrate. Neuro: Level of Consciousness is awake, alert, obeys commands, Oriented to person, place, time, situation. Historical: - Allergies: 21:32 Iodine; tw5 21:32 PENICILLINS; tw 21:32 SHELLFISH; tw5 - PMHx: 21:32 Chronic pain; tw5 - PSHx: 21:32 Spinal surgery; tw5 - Immunization history:: Flu vaccine is not up to date. - Social history:: Smoking status: Patient denies any tobacco usage or history of. Screenin:33 Abuse screen: Denies threats or abuse. Denies injuries from another. ha1 21:33 Nutritional screening: No deficits noted. Tuberculosis screening: No symptoms or risk ha1 factors identified. Fall Risk None identified. Assessment: 21:33 Pain: Complains of pain in in the mouth Pain currently is 10 out of 10 on a pain scale. ha1 Neuro: Level of Consciousness is awake, alert, obeys commands, Oriented to person, place, time, situation. Cardiovascular: Capillary refill < 3 seconds Patient's skin is warm and dry. Respiratory: Respiratory effort is even, unlabored, Respiratory pattern is regular, symmetrical. 22:07 Reassessment: Patient and/or family updated on plan of care and expected duration. Pain ha1 level reassessed. Patient is alert, oriented x 3, equal unlabored respirations, skin warm/dry/pink. Vital Signs: 21:30 BP 141 / 85; Pulse 96; Resp 18; Temp 98.6; Pulse Ox 95% on R/A; Weight 127.01 kg; tw5 Height 5 ft. 4 in. (162.56 cm); Pain 10/10; 22:09 BP 140 / 80; Pulse 96; Resp 17 S; Pulse Ox 96% on R/A; Pain 5/10; ha1 21:30 Body Mass Index 48.06 (127.01 kg, 162.56 cm) tw5 ED Course: 21:22 Patient arrived in ED. jj6 21:27 Carisa Trinidad FNP-C is [facility]. kb 21:27 Tristin Lopez MD is Attending Physician. kb 21:32 Triage completed. tw5 21:33 Patient has correct armband on for positive identification. Bed in low position. Call ha1 light in reach. Side rails up X 1. 21:46 Zee Corona, ANAHI is Primary Nurse. ha1 22:08 No provider procedures requiring assistance completed. Patient did not have IV access ha1 during this emergency room visit. Administered Medications: 21:55 Drug: Clindamycin 300 mg Route: PO; ha1 22:10 Follow up: Response: No adverse reaction ha1 21:55 Drug: [place] (HYDROcodone-acetaminophen) 10 mg-325 mg 1 tabs Route: PO; ha1 22:10 Follow up: Response: No adverse reaction; Pain is decreased; RASS: Alert and Calm (0) ha1 Medication: 22:09 VIS not applicable for this client. ha1 Outcome: 21:39 Discharge ordered by MD. goodson 22:08 Discharged to home ambulatory. ha1 22:08 Condition: stable 22:08 Discharge instructions given to patient, Instructed on discharge instructions, follow up and referral plans. medication usage, Demonstrated understanding of instructions, follow-up care, medications, Prescriptions given X 1. 22:11 Patient left the ED. ha1 Signatures: Carisa Trinidad, JACQUE-C NAIL PROFESSIONAL-Juanita Dugan tw5 Trinh Castroj6 Zee Corona, RN RN ha1 Corrections: (The following items were deleted from the chart) 22:08 21:33 No provider procedures requiring assistance completed. ha1 ha1 :08 21:33 Patient did not have IV access during this emergency room visit. ha1 ha1
--- NOTE | 2022-06-08 21:40 | EDPHYS ---
Physician Documentation [facility] Name: Ruben Alamo Age: 46 yrs Sex: Male : 1975 Arrival Date: 06/08/2022 Time: 21:22 Bed 13 Private MD: ED Physician Tristin Lopez HPI: 06/09 00:24 This 46 yrs old Black Male presents to ER via Ambulatory with complaints of Jaw Pain, kb Facial Swelling, Headache. 00:24 The patient presents with pain, redness, swelling. The problem is located in the upper kb right second bicuspid (#4) and upper right first molar (#3) and upper right second molar (#2). Onset: The symptoms/episode began/occurred 3 day(s) ago. Duration: The symptoms are continuous. Modifying factors: The symptoms are alleviated by nothing, the symptoms are aggravated by nothing. Associated signs and symptoms: Pertinent positives: pain, redness in area, swelling. Severity of symptoms: At their worst the symptoms were moderate, in the emergency department the symptoms are unchanged. The patient has not experienced similar symptoms in the past. The patient has not recently seen a physician. Historical: - Allergies: 06/08 21:32 Iodine; tw5 21:32 PENICILLINS; tw5 21:32 SHELLFISH; tw5 - PMHx: 21:32 Chronic pain; tw5 - PSHx: 21:32 Spinal surgery; tw5 - Immunization history:: Flu vaccine is not up to date. - Social history:: Smoking status: Patient denies any tobacco usage or history of. ROS: 06/09 00:23 Constitutional: Negative for fever, chills, and weight loss. kb ENT: Positive for dental pain. All other systems are negative. Exam: 00:23 Constitutional: This is a well developed, well nourished patient who is awake, alert, kb and in no acute distress. Head/Face: Normocephalic, atraumatic. Cardiovascular: Regular rate and rhythm with a normal S1 and S2. No gallops, murmurs, or rubs. No pulse deficits. Respiratory: Respirations even and unlabored. No increased work of breathing. Talking in full sentences Skin: Warm, dry with normal turgor. Normal color. MS/ Extremity: Pulses equal, no cyanosis. Neurovascular intact. Full, normal range of motion. Neuro: Awake and alert, GCS 15, oriented to person, place, time, and situation. Moves all extremities. Normal gait. Psych: Awake, alert, with orientation to person, place and time. Behavior, mood, and affect are within normal limits. 00:23 ENT: Dental exam: gum swelling, that is mild, specifically in the upper right second molar (#2), upper right first molar (#3) and upper right second bicuspid (#4), pain, that is moderate. Vital Signs: 06/08 21:30 BP 141 / 85; Pulse 96; Resp 18; Temp 98.6; Pulse Ox 95% on R/A; Weight 127.01 kg; tw5 Height 5 ft. 4 in. (162.56 cm); Pain 10/10; 22:09 BP 140 / 80; Pulse 96; Resp 17 S; Pulse Ox 96% on R/A; Pain 5/10; ha1 21:30 Body Mass Index 48.06 (127.01 kg, 162.56 cm) tw5 MDM: 21:34 Patient medically screened. kb 06/09 00:22 Data reviewed: vital signs, nurses notes. Data interpreted: Pulse oximetry: on room air kb is 96 %. Interpretation: normal. Counseling: I had a detailed discussion with the patient and/or guardian regarding: the historical points, exam findings, and any diagnostic results supporting the discharge/admit diagnosis, the need for outpatient follow up, a dentist, to return to the emergency department if symptoms worsen or persist or if there are any questions or concerns that arise at home. Administered Medications: 06/08 21:55 Drug: Clindamycin 300 mg Route: PO; ha1 22:10 Follow up: Response: No adverse reaction ha1 21:55 Drug: [place] (HYDROcodone-acetaminophen) 10 mg-325 mg 1 tabs Route: PO; ha1 22:10 Follow up: Response: No adverse reaction; Pain is decreased; RASS: Alert and Calm (0) ha1 Disposition: 06/09 02:16 Co-signature as Attending Physician, Tristin Lopez MD. rn Disposition Summary: 06/08/22 21:39 Discharge Ordered Location: Home kb Condition: Stable kb Diagnosis - Other specified disorders of teeth and supporting structures kb Followup: kb - With: Emergency Department - When: As needed - Reason: Worsening of condition Followup: kb - With: Private Physician - When: 2 - 3 days - Reason: Recheck today's complaints, Continuance of care, Re-evaluation by your physician Discharge Instructions: - Discharge Summary Sheet kb - Dental Abscess, [id number] kb Forms: - Medication Reconciliation Form kb - Thank You Letter kb - Antibiotic Education kb - Prescription Opioid Use kb Prescriptions: - Clindamycin HCl 300 mg Oral Capsule - take 1 capsule by ORAL route every 6 hours for 10 days; 40 capsule; Refills: 0, kb Product Selection Permitted Signatures: Carisa Trinidad, JACQUE-C SOLAR ENERGY ENGINEER-Ckb Tristin Lopez MD MD rn Juanita Dobson tw5 Zee Corona RN RN ha1
[2022-06-08] MEDS ORDERED: HYDROCODONE/APAP 10/325 TAB ONE (22:10)
[2022-06-10 06:10] VITALS: TEMP 98.6
[2022-06-10 06:12] VITALS: BP 140/80; O2SAT 96
== END 2022-06-08 22:11 | disposition home or self-care (01) ==
LOC: ER 21:19
DX: K08.89 Other specified disorders of teeth and supporting structures (principal)
CPT/HCPCS: 99283

== ENCOUNTER 2022-06-14 22:42 | Emergency (ER) | payer SELFPAY ==
--- OUTSIDE RECORDS SUMMARY | 2022-06-14 22:45 | XMS REPORT | Continuity of Care Document ---
:1975 Author Organization [facility] [place] t Address [facility] [place] [address] Care Team Providers Name Role Phone Asked, [...] Policy Number Effective Date Expiration Date S ourfariba Problems Condition Condition Condition Status Onset Resolution Last Treating Co mments Source Name Details Category Date Date Treatment Clinician Date Backache Backache Problem [facility] l (LUF/LI V/SA) No known No known Disease Unive rs active active ity of problems problems [facility] Lumbago Lumbago Problem Active 2017-11-07 M emoria with with 03:47:18 l sciatica, sciatica, Herm marcus left side left side Active Problem 11/07/2017 Family Diagnostic Body mass Body mass Problem Active 2017-11-07 Memoria index index 03:47:18 l (BMI) (BMI) [place] 45.0-49.9, 45.0-49.9, adult adult Active Problem 11/07/2017 Family Diagnostic Other Other Problem Active 2017-11-07 Memor ia chronic chronic 03:47:18 l pain pain [place] Active Problem 11/07/2017 Family Diagnostic Allergies, Adverse Reactions, Alerts Allergy Allergy Status Severity Reaction(s) Onset Inactive Treating Comm ents Source Name Type Date Date Clinician SHELLFIS DRUG Active Unknown-Cmnt Un butch H INGREDI 8-16 ity of DERIVED 00:00: [place] [address] [place] [address] Shellfis Propensi Active Unknown - Uni vers h ty to See comments 8-16 ity of Derived adverse 00:00: [place] reaction 00 [facility] No Known DA Active U 2020-0 [facility] All[facility]ie 3-05 [place] [facility] 00:00: [facility] 00 [facility] No Known DA Active U 2020-0 [facility] Allergie 3-05 [place] s 00:00: [facility] 00 [facility] NO KNOWN Drug Active Univers ALLERGIE Class ity of S [facility] Social History Social Habit Start Date Stop Date Quantity Comments Source Exposure to 2022-05-20 2022-05-30 Not sure [facility] SARS-CoV-2 (event) 00:00:00 20:57:00 [facility] Sex Assigned At [birth year] [facility] 00:00:00 00:00:00 Smoking Status Start Date Stop Date Source Never smoker [facility] (LUF/BLANCA/SA) Tobacco smoking consumption [facility] [place] unknown Medications Ordered Filled Start Stop Current Ordering Indication Dosage Frequency Signature Comments Components Source Medication Medication Date Date Medication? Clinician (SIG) Name Name crystal 2021- No 1{tbl} 1 tablet, Univers acetaminoph 05-31- Oral, ity of en-caff 02:30: 02:22 ONCE, 1 [place] (ESGIC) 00 :00 dose, On Medical 50-325-40 05/30/22 Bran ch mg tablet 1 at 2130, tablet CHRISTINA leonard- Yes [id number] 1{tbl} Take 1 Univers acetaminoph - tablet by ity of en-caff 00:00: mouth [place] 50-325-40 00 every 6 Medical mg tablet (six) Branch hours as needed for Pain (scale 4-6) or Pain (scale 7-10). ondansetron 2021- Yes 4mg Q8H Take 1 Met hodi ODT 05-20-27 tablet (4 st (ZOFRAN-ODT 00:00: 04:59 mg total) Hospita ) 4 MG 00 :00 by mouth l disintegrat every 8 ing tablet (eight) hours as needed for nausea or vomiting for up to 30 days. ondansetron 2021- Yes 4mg Q8H Take 1 Met hodi ODT 8-20 06-27 tablet (4 st (ZOFRAN-ODT 00:00: 04:59 mg total) Hospita ) 4 MG 00 :00 by mouth l disintegrat every 8 ing tablet (eight) hours as needed for nausea or vomiting for up to 30 days. ondansetron 2021- Yes 4mg Q8H Take 1 Met hodi ODT 8-20 06-27 tablet (4 st (ZOFRAN-ODT 00:00: 04:59 mg total) Hospita ) 4 MG 00 :00 by mouth l disintegrat every 8 ing tablet (eight) hours as needed for nausea or vomiting for up to 30 days. LISINOPRIL Yes Take by [facility] ORAL 8-16 mouth. ity of 21:45: [place] 20 Medical Branch HYDROcodone Yes 1{tbl} Take 1 Un butch -acetaminop 8-16 tablet by ity of hen (NORCO) 21:45: mouth [place] 10-325 mg 20 every 6 Medical tablet (six) Branch hours as needed. LISINOPRIL Yes Take by Univ ers ORAL 8-16 mouth. ity of 21:45: [place] [address] Medical Branch HYDROcodone Yes 1{tbl} Take 1 Un butch -acetaminop 8-16 tablet by ity of hen (NORCO) 21:45: mouth [place] 10-325 mg 20 every 6 Medical tablet (six) Branch hours as needed. ketorolac 2021- Yes 30mg 30 mg, Unive rs (TORADOL) 04-23 Intramuscu ity of injection 21:15: 09:14 lar, ONCE, [place] 30 mg 00 :00 1 dose, On Medical [place] 04/23/22 at 1615, Routine metoclopram 2021- No 10mg 10 mg, Uni vers darren HCl 04-23 Intramuscu ity o f (REGLAN) 20:15: 20:45 [place] injection 00 :00 1 dose, On Medi shannan 10 mg [facility] 04/23/22 at 1515, CHRISTINA Hydrocodone Yes Toussaint 1 tablet Memoria -Acetaminop 2-14 Irfan as needed l hen 03:47: Taov Garibay Carisoprodo 2017- Yes [place] 1 tablet Memoria l 2-14 Irfan as needed l 03:47: Tavo Garibay Meloxicam 2017-0 Yes [place] 1 tablet Memoria 2-14 Irfan l 03:47: Tavo Garibay Hydrocodone 2017- Yes [place] 1 tablet Memoria -Acetaminop 2-14 Irfan as needed l hen 03:47: Tavo Garibay Carisoprodo 2017-0 Yes [place] 1 tablet Memoria l 2-14 Irfan as needed l 03:47: Tavo Garibay Meloxicam 2017-0 Yes [place] 1 tablet Memoria 2-14 Irfan l 03:47: Tavo Garibay Acetaminoph Yes T[place]aint 1 tablet Memoria en-Codeine 2-01 Irfan as needed l #3 00:00: Acetaminoph 2018-0 Yes T[place]aint 1 tablet Memoria en-Codeine 2-01 Irfan as needed l #3 00:00: Prednisone Prednisone 2018-0 Yes 60mg QD [facility] l (LUF/LI V/SA) [place] 2018-0 Yes Toussaint 1 tablet Enrique elkin 1-15 Irfan as needed l 00:00: Soma 2018-0 Yes Toussaint 1 tablet Memor ia 1-15 Irfan as needed l 00:00: Meloxicam 2018-0 Yes Toussaint 1 tablet Memoria 1-15 Irfan l 00:00: Pollock 2018-0 Yes [place] 1 tablet Enrique elkin 1-15 Irfan as needed l 00:00: Soma 2018-0 Yes Toussaint 1 tablet Memor ia 1-15 Irfan as needed l 00:00: Meloxicam 2018-0 Yes Toussaint 1 tablet Memoria 1-15 Irfan l 00:00: acetaminoph 2015-0 Yes 1{tbl} Take 1 Tab Univers en-codeine [...] blood 2022-05-31 01:59:00 128 mm[Hg] Univer sity of pressure [place] [facility] Diastolic blood 2022-05-31 01:59:00 81 mm[Hg] Unive rsity of pressure [place] [facility] Heart rate 2022-05-31 01:59:00 78 /min [facility] [place] [facility] Body temperature 2022-05-31 01:59:00 36.94 Amisha Univ [facility] [place] [facility] Respiratory rate 2022-05-31 01:59:00 18 /min Univ [facility] [place] [facility] Body height 2022-05-31 01:59:00 165.1 cm [facility] [place] [facility] Body weight 2022-05-31 01:59:00 127.007 kg [facility] [place] [facility] BMI 2022-05-31 01:59:00 46.59 kg/m2 [facility] [place] [facility] Oxygen saturation in 2022-05-31 01:59:00 95 /min University of Arterial blood by [place] [facility] Pulse oximetry Branch Systolic blood 2022-05-10 02:39:00 148 mm[Hg] Univer sity of pressure [place] [facility] Diastolic blood 2022-05-10 02:39:00 84 mm[Hg] Unive rsity of pressure [place] [facility] Heart rate 2022-05-10 02:39:00 70 /min [facility] [place] [facility] Body temperature 2022-05-10 02:39:00 37.56 Amisha [facility] [place] [facility] Respiratory rate 2022-05-10 02:39:00 18 /min Univ [facility] [place] [facility] Body height 2022-05-10 02:39:00 162.6 cm [facility] [place] [facility] Body weight 2022-05-10 02:39:00 127.007 kg [facility] [place] [facility] BMI 2022-05-10 02:39:00 48.06 kg/m2 [facility] [place] [facility] Oxygen saturation in 2022-05-10 02:39:00 95 /min University of Arterial blood by Dwllr shannan Pulse oximetry Branch Body weight 2022-04-23 20:11:00 133.131 kg [facility] [place] [facility] BMI 2022-04-23 20:11:00 50.38 kg/m2 [facility] [place] [facility] Systolic blood 2022-04-23 20:09:00 140 mm[Hg] Univer sity of pressure [facility] Diastolic blood 2022-04-23 20:09:00 81 mm[Hg] Unive rsity of pressure [facility] Heart rate 2022-04-23 20:09:00 66 /min Universi [facility] Body temperature 2022-04-23 20:09:00 36.72 Amisha Univ ersity of [facility] Respiratory rate 2022-04-23 20:09:00 17 /min [facility] Body height 2022-04-23 20:09:[address] [facility] Oxygen saturation in 2022-04-23 20:09:00 97 /min [facility] Arterial blood by [facility] Pulse oximetry [place] Systolic blood 2022-05-21 00:33:00 132 mm[Hg] [facility] pressure Diastolic blood 2022-05-21 00:33:00 64 mm[Hg] [facility] pressure Heart rate 2022-05-21 00:33:00 64 /min [facility] Oxygen saturation in 2022-05-21 00:33:00 98 /min [facility] Arterial blood by Pulse oximetry Body temperature 2022-05-20 23:53:12 36.17 Amisha [facility] [place] Respiratory rate 2022-05-20 23:53:12 18 /min [facility] [place] Body height 2022-05-20 23:52:00 162.6 cm [facility] Body weight 2022-05-20 23:52:00 127.007 kg [facility] BMI 2022-05-20 23:52:00 48.06 kg/m2 [facility] Weight 2017-10-25 [facility] Height 2017-10-25 15:00:00 [facility] Temperature Oral (F) 2017-10-25 15:00:00 97.8 F [facility] [place] Heart Rate 2017-10-25 15:00:00 [facility] [place] Diastolic (mm Hg) 2017-10-25 15:00:00 Mem orial [place] Systolic (mm Hg) 2017-10-25 15:00:00 Enrique rial [place] Body Temperature 2017-10-21 12:00:00 97.5 F [facility] (LUF/BLANCA/SA) Respiratory Rate 2017-10-21 12:00:00 20 /min [facility] (LUF/BLANCA/SA) O2% BldC Oximetry 2017-10-21 12:00:00 98 % [facility] (LUF/BLANCA/SA) BP Systolic 2017-10-21 12:00:00 132 mm[Hg] [facility] (LUF/BLANCA/SA) BP Diastolic 2017-10-21 12:00:00 78 mm[Hg] [facility] (LUF/BLANCA/SA) Height 2017-10-21 12:00:00 64 in [facility] (LUF/BLANCA/SA) Weight Measured 2017-10-21 12:00:00 282.19 lbs [facility] marlyn [facility] (LUF/BLANCA/SA) BMI (Body Mass 2017-10-21 12:00:00 48.7 [facility] (LUF/BLANCA/SA) Weight 2017-10-08 15:45:00 [facility] [place] Height 2017-10-08 15:45:00 [facility] [place] Temperature Oral (F) 2017-10-08 15:45:00 96.8 F [facility] [place] Heart Rate 2017-10-08 15:45:00 [facility] [place] Diastolic (mm Hg) 2017-10-08 15:45:00 Mem orial [place] Systolic (mm Hg) 2017-10-08 15:45:00 Enrique rial [place] Procedures Procedure Date / Time Performed Performing Clinician [facility] e CONSENT/REFUSAL FOR 2022-05-31 01:55:15 Doctor Unassigned, No [facility] [place] DIAGNOSIS AND Name Medical Branch TREATMENT CT CERVICAL SPINE WO 2022-05-21 01:24:51 Kaycee Butt [facility] CONTRAST CT HEAD WO CONTRAST 2022-05-21 01:15:40 Kaycee Butt [facility] [place] POC GLUCOSE 2022-05-21 00:33:00 Kaycee Butt [facility] NOTICE OF PRIVACY 2022-05-10 02:37:04 Doctor Unassigned, No [facility] [place] PRACTICES Name Medical Branch CONSENT/REFUSAL FOR 2022-05-10 02:35:02 Doctor Unassigned, No [facility] [place] DIAGNOSIS AND Name Medical Branch TREATMENT CONSENT/REFUSAL FOR 2022-04-23 20:00:28 Doctor Unassigned, No Un [facility] DIAGNOSIS AND Name Medical Branch TREATMENT Plan of Care Planned Activity Planned Date Details Comments Source Future Scheduled 2022-06-09 [facility] B [facility] 18:36:38 VACCINES (1 of 3 - 3-dose series) [code = HEPATITIS B VACCINES (1 of 3 - 3-dose series)] Future Scheduled 2022-06-09 Hepatitis C [facility] 18:36:38 screening (procedure) [code = 342919076] Future Scheduled 2022-06-09 COVID-19 VACCINE (3 [facility] 18:36:38 - Booster for Pfizer series) [code = COVID-19 VACCINE (3 - Booster for Pfizer series)] Future Scheduled 2022-06-09 INFLUENZA VACCINE [facility] 18:36:38 [code = INFLUENZA VACCINE] Future Scheduled 2022-05-25 HEPATITIS B [facility] 07:52:22 VACCINES (1 of 3 - 3-dose series) [code = HEPATITIS B VACCINES (1 of 3 - 3-dose series)] Future Scheduled 2022-05-25 [facility] 07:52:22 screening (procedure) [code = 659006564] Future Scheduled 2022-05-25 COVID-19 VACCINE (3 [facility] 07:52:22 - Booster for Pfizer series) [code = COVID-19 VACCINE (3 - Booster for Pfizer series)] Future Scheduled 2022-05-25 [facility]ZA VACCINE [facility] 07:52:22 [code = INFLUENZA VACCINE] Future Scheduled 2022-05-25 HE[facility]ITIS B [facility] 07:52:22 VACCINES (1 of 3 - 3-dose series) [code = HEPATITIS B VACCINES (1 of 3 - 3-dose series)] Future Scheduled 2022-05-25 [facility] 07:52:22 screening (procedure) [code = 961682661] Future Scheduled 2022-05-25 COVID-19 VACCINE (3 [facility] Test 07:52:22 - Booster for Pfizer series) [code = COVID-19 VACCINE (3 - Booster for Pfizer series)] Future Scheduled 2022-05-25 INFLUENZA VACCINE [facility] 07[facility]52:22 [code = INFLUENZA VACCINE] Encounters Start End Encounter Admission Attending Care Care Encounter Source Date/Time Date/Time Type Type Clinicians Facility Department ID 2022-06-14 Outpatient [id number] Memoria 22:44:21 [id number] 90A-4A19- 9 l -9064-22B 4-22R306N4V 064-87B338 Tavo [id number] 2022-06-08 Outpatient [id number] Memoria 21:22:44 I15R-7BF3 4B-3NX5-656 44B-4BC4- 8 l -819B-E8C B-[id number] 19B-I4I935 Tavo [id number] [id number] 2022-06-03 Outpatient [id number] Memoria 01:33:52 4565-43DE 65-43DE-92E 565-43DE- 9 l -96R7-347 [id number] 4L3-451SD9 Tavo [id number] 217 [id number] 2022-05-30 Outpatient [id number] [id number] Memoria 20:55:52 4P08-412V 39-438E-9B8 B66-969G- 9 l -2R78-4PK 0-7RME9Q0IR U83-8YFD8H Tavo [id number] F41 4BEF41 2022-05-20 Outpatient [id number] A21D-1 Memoria 18:55:15 1FAA-4CF3 AA-5EX9-25R FAA-4CF3- 8 l -80ED-A77 D-[id number] 0ED-A77A25 Tavo [id number] [id number] 0229-09-27 Outpatient [id number] Memoria 14:21:52 03G2-6EYV F0-4CEA-948 5G1-2EMU- 9 l -9486-B77 6-U87HPV8K0 486-B77BBD Tavo ITG5T67B9 4C4 1C14C4 2021-06-20 Outpatient [id number] BE16-8 Memoria 14:21:45 8434-49AE 34-49AE-95B 434-49AE- 9 l -95BD-57D D-11ZX64K4S 5BD-57DA06 Tavo [id number] 032 L2T202 2021-05-30 Outpatient [id number] Memoria 15:44:20 DAF5-4596 F5-4596-BFE AF5-4596- B l -BFE1-51A 1-11ZDT39CZ FE1-51ACA1 Tavo MN85SX9OF 1BA 9CA1BA 2020-01-20 Inpatient [facility] [id number] [facility] 15:25:[address] [facility] 2019-12-16 Inpatient [facility] [id number] [facility] 17:49:[address] [facility] 2019-12-12 Inpatient [facility] [id number] [facility] 08:32:[address] [facility] 2019-11-27 Inpatient [facility] [id number] [facility] 07:33:[address] [facility] 2022-05-30 2022-05-30 Emergency X [facility] ERT [id number] Univers 21:02:00 21:53:00 ALBIN ibrahim of [facility] 2022-05-30 2022-05-30 Emergency [facility] 1.2.281.531 [id number] Univers 21:02:00 21:53:00 Albin RUSSO 350.1.13.10 i ty [facility] 4.2.7.2.686 [facility] [id number] [address] 2022-05-20 2022-05-20 Emergency Bárbara 1.2.840.1 [id number] Methodi 19:29:00 21:04:[address] 3.430.2.7 Hospit a .3.073757 l .8 2022-05-20 2022-05-20 Emergency Darci-Kings 1.2.840.1 [id number] Methodi 19:29:00 21:04:[address] 3.430.2.7 Hospit a .3.659350 l .8 2022-05-20 2022-05-20 Travel 1.2.840.1 1.2.382.548 [id number] Methodi 00:00:00 00:00:[address] 3.430.2.7 0.2.7.3.698 Ho spita .3.058744 084.8 l .8 2022-05-20 2022-05-20 Travel 1.2.840.1 1.2.874.168 [id number] [id number] Methodi 00:00:00 00:00:[address] 3.430.2.7 0.2.7.3.698 Ho spita .3.629033 084.8 l .8 2022-05-09 2022-05-09 Emergency [facility] [id number] Univers 21:45:00 21:46:[address] [facility] 2022-05-09 2022-05-09 [facility] 1.2.840.114 [id number] Univers 21:45:00 21:46:00 Cher RUSSO 350.1.13.10 itnickie [facility] 4.2.7.2.686 [facility] [id number] [place] [address] Branch 2022-04-23 2022-04-23 Emergency [facility] ERT [id number] Univers 15:11:00 15:52:[address] [facility] 2022-04-23 2022-04-23 Emergency [place], [facility] 1.2.125.300 [id number] Univers 15:11:00 15:52:00 Bo RUSSO 350.1.13.10 ity [facility] 4.2.7.2.686 [facility] [id number] [facility] 084 Branch 2021-09-14 2021-09-14 Outpatient FERGUSON_JO MEHOP MEHOP 117 942- [place] 02:13:00 02:[place] [id number] [facility] 2021-09-08 2021-09-08 Outpatient FERGUSON_JO MEHOP MEHOP 117 942 [place] 02:19:00 02:19:00 [place] [id number] [facility] 2017-11-01 2017-11-01 Outpatient Family Family [id number] eClinic 10:47:00 10:47:00 [facility] Clinic 2017-10-25 2017-10-25 Outpatient Family Family [id number] eClinic 09:00:00 09:00:00 [facility] Clinic 2017-10-21 2017-10-21 PAIN IN NIKKI, [facility] [id number] [facility] 11:51:00 14:48:00 THORACIC BETHANY [facility], [address], (LUF/[place] V/[place] [address] 2017-10-21 2017-10-21 PAIN IN NIKKI, [facility] [id number] 11:51:00 14:48:00 THORACIC BETHANY CHARLENESTO [facility] SPINE N 2017-10-08 2017-10-08 Outpatient Family Family [id number] eClinic 09:45:00 09:45:00 [facility] Clinic Results Test Description Test Time Test Comments Results Result Comments Source POC glucose 2022-05-21 00:34:00 Test Item Value Reference Range Interpretation Comme nts POC glucose (test code = 97725-5) 217 mg/dL 65-100 H Building Construction Teacher Name: Zach Varela ID: [id number] Lab Interpretation (test code = Abnormal 52189-8) [facility] [id number] 00:34:00 Test Item Value Reference Range Interpretation Comments POC glucose (test code = 217 mg/dL 65-100 H Ope rator Name: Zach [id number]) Avery ID: [id number] Lab Interpretation (test Abnormal code = 92693-7) [facility] [id number] 00:34:00 Test Item Value Reference Range Interpretation Comments POC glucose (test code = 217 mg/dL 65-100 H Ope rator Name: Zach [id number]) Avery ID: [id number] Lab Interpretation (test Abnormal code = 52299-8) [facility]- CT HEAD/BRAIN W/O [id number] 18:19:00 Patient Name: VIMAL BARROSO Unit No: [id number] EXAMS: CPT CODE: [id number] CT HEAD/BRAIN W/O CONT 42571 CLINICAL INFORMATION: Moderate frontal headaches. Coughing. Dictation [...] CTDI: 45.04 DLP: 757.79 Trnscrpt: 12/16/2019 (1818) NancyV [facility] NAME: VIMAL BARROSO [address] [place] [address] PHYS: Germania Isaacs NP [place], [place] [address] : 1975 AGE: 44 SEX: M LOC: EMILY PHONE #: [phone] EXAM DATE: 12/16/2019 STATUS: PREER FAX #: [phone] RAD #: D/C DT PAGE 1 Signed Report Patient Name: VIMAL BARROSO Unit No: [id number] EXAMS: CPT CODE: [id number] CT HEAD/BRAIN W/O CONT 12010 (Continued) Orig Print D/T: S: 12/16/2019 (182) LORETA Lopez NAME: VIMAL BARROSO [address] [place] [address] PHYS: Myron Isaacscy [place] [phone] : 1975 AGE: 44 SEX: M LOC: EMILY PHONE #: [phone] EXAM DATE: 12/16/2019 STATUS: PRE ER FAX #: [phone] RAD #: D/C DT PAGE 2 Signed Report- XR CHEST 2 [id number] 09:11:00 FAX: Germania Engel NP [phone] [place]: St: REG Patient Name: VIMAL BARROSO Unit No: [id number] EXAMS: CPT CODE: [id number] XR CHEST 2 V 27354 - XR CHEST 2 V LOCATION: T18 [...] 12/12/2019 (913) LORETA Lopez NAME: VIMAL BARROSO [address] [place] [address] PHYS: KELLY EngelGermania [place] [address] : 1975 AGE: 44 SEX: M LOC: EMILY PHONE #: [phone] EXAM DATE: 12/12/2019 STATUS: REG ER FAX #: [phone] RAD NO: DC Dt: PAGE 1 Signed ReportSPINE LUMBAR [id number] 13:37:[address] [address]EBTCVHTIYU IMAGING REPORTPatient Name: Lili BARROSO of Service: [id number]: 41 Sex: M Order #: [id number] [facility] 1975 X-Ray Number: [id number] Record Number: [id number] Hospital Number: [id number] Physician: Agatha CROW Physician: RUBY TREVIÑO LUMBAR [...]
[2022-06-15] MEDS ORDERED: METOCLOPRAMIDE 10 MG/2mL INJ ONE (00:11)
[2022-06-15] MEDS ORDERED: DIPHENHYDRAMINE 50 MG/ML VIAL ONE (00:11)
[2022-06-15] MEDS ORDERED: dexAMETHasone 10 MG/ML VIAL ONE (00:12)
[2022-06-15] MEDS ORDERED: NA CHLORIDE 0.9% 1,000 ML ONE (00:12)
[2022-06-15] MEDS ORDERED: KETOROLAC 30 MG/ML INJ ONE (00:12)
[2022-06-15] MEDS ORDERED: NA CHLORIDE 0.9% 100 ML ONE (00:39)
--- NOTE | 2022-06-15 01:03 | ER ---
Nurse's Notes [facility] Name: Ruben Alamo Age: 46 yrs Sex: Male : 1975 Arrival Date: 06/14/2022 Time: 22:54 Bed 23 Private MD: Diagnosis: Headache Presentation: 06/14 23:07 Chief complaint: Patient states: Left sided headache began 2 hours ago. Coronavirus ld1 screen: At this time, the client does not indicate any symptoms associated with coronavirus-19. Ebola Screen: No symptoms or risks identified at this time. Initial Sepsis Screen: Does the patient meet any 2 criteria? No. Patient's initial sepsis screen is negative. Does the patient have a suspected source of infection? No. Patient's initial sepsis screen is negative. Risk Assessment: Do you want to hurt yourself or someone else? Patient reports no desire to harm self or others. Onset of symptoms was June 14, 2022. 23:07 Method Of Arrival: Ambulatory ld1 23:07 Acuity: LIZBETH 3 ld1 Triage Assessment: 23:08 Headache History: The patient has had previous headaches and this one is similar to ld1 previous episodes. General: Appears in no apparent distress. uncomfortable, Behavior is calm, cooperative, appropriate for age. Pain: Complains of pain in face Pain does not radiate. Pain currently is 10 out of 10 on a pain scale. Quality of pain is described as tingling, throbbing, Pain began 3 hours ago. Is continuous, Also complains of no other associated symptoms. EENT: No signs and/or symptoms were reported regarding the EENT system. Neuro: Level of Consciousness is awake, alert, obeys commands, Oriented to person, place, time, situation. Cardiovascular: Capillary refill < 3 seconds Patient's skin is warm and dry. Respiratory: Airway is patent Respiratory effort is even, unlabored. GI: Abdomen is round non-distended. : No signs and/or symptoms were reported regarding the genitourinary system. Derm: No signs and/or symptoms reported regarding the dermatologic system. Musculoskeletal: No signs and/or symptoms reported regarding the musculoskeletal system. Historical: - Allergies: 23:08 Iodine; ld1 23:08 PENICILLINS; ld1 23:08 SHELLFISH; ld1 - Home Meds: 23:08 hydrocodone-acetaminophen 10-325 mg/15 mL(15 mL) Oral soln 15 mL every 6 hours [Active];ld1 - PMHx: 23:08 Chronic pain; ld1 - PSHx: 23:08 Spinal surgery; ld1 - Immunization history:: Adult Immunizations up to date, Client reports receiving the 2nd dose of the Covid vaccine. - Social history:: Smoking status: Patient denies any tobacco usage or history of. Patient/guardian denies using alcohol. Screenin/22 01:03 Abuse screen: Denies threats or abuse. Denies injuries from another. Nutritional ha1 screening: No deficits noted. Tuberculosis screening: No symptoms or risk factors identified. Fall Risk None identified. Assessment: 06/14 23:45 General: Appears uncomfortable, Behavior is calm, cooperative. ha1 23:45 Pain: Complains of pain in head Pain does not radiate. Pain currently is 10 out of 10 ha1 on a pain scale. Quality of pain is described as shooting, throbbing, Pain began 3 hours ago. Alleviated by medications, Aggravated by light. Neuro: Level of Consciousness is awake, alert, obeys commands, Oriented to person, place, time, situation. Cardiovascular: Capillary refill < 3 seconds Patient's skin is warm and dry. Respiratory: Airway is patent Trachea midline Respiratory effort is even, unlabored, Respiratory pattern is regular, symmetrical. GI: No signs and/or symptoms were reported involving the gastrointestinal system. GI: Abdomen is non-distended, obese. : No signs and/or symptoms were reported regarding the genitourinary system. Musculoskeletal: Circulation, motion, and sensation intact. Range of motion: intact in all extremities. 06/15 00:39 Reassessment: Patient and/or family updated on plan of care and expected duration. Pain ha1 level reassessed. Patient is alert, oriented x 3, equal unlabored respirations, skin warm/dry/pink. 01:02 Reassessment: Patient and/or family updated on plan of care and expected duration. Pain ha1 level reassessed. Patient is alert, oriented x 3, equal unlabored respirations, skin warm/dry/pink. Patient states feeling better. Patient states symptoms have improved. Vital Signs: 06/14 23:07 BP 139 / 83; Pulse 96; Resp 18; Temp 97.9(TE); Pulse Ox 97% on R/A; Weight 127.01 kg; ld1 Height 5 ft. 4 in. (162.56 cm); Pain 10/10; 06/15 00:30 BP 135 / 79; Pulse 60; Resp 17 S; Pulse Ox 97% on R/A; ha1 06/14 23:07 Body Mass Index 48.06 (127.01 kg, 162.56 cm) ld1 ED Course: 06/14 22:54 Patient arrived in ED. bp1 22:57 Mynor Peña PA is PHCP. cp 22:57 Tip Vegas DO is Attending Physician. cp 23:08 Triage completed. ld1 23:08 Arm band placed on right wrist. ld1 23:10 Lamar Mercado, ANAHI is Primary Nurse. ld1 06/15 01:06 Inserted saline lock: 22 gauge in right hand, using aseptic technique. Blood collected. kd3 01:12 No provider procedures requiring assistance completed. IV discontinued, intact, kd3 bleeding controlled, No redness/swelling at site. Pressure dressing applied. 01:13 Patient has correct armband on for positive identification. kd3 Administered Medications: 00:34 Drug: Benadryl (diphenhydrAMINE) 25 mg Route: IVP; Site: right hand; ha1 01:01 Follow up: Response: No adverse reaction ha1 00:34 Drug: Ketorolac 30 mg Route: IVP; Site: right hand; ha1 01:01 Follow up: Response: No adverse reaction ha1 00:34 Drug: Decadron - Dexamethasone 10 mg Route: IVP; Site: right hand; ha1 01:01 Follow up: Response: No adverse reaction ha1 00:35 Drug: NS 0.9% 1000 ml Route: IV; Rate: 1 bolus; Site: right hand; ha1 01:02 Follow up: Response: No adverse reaction; IV Status: Completed infusion; IV Intake: ha1 500ml 00:35 Drug: Reglan (metoCLOPramide) 10 mg Route: IVP; Site: right hand; ha1 01:01 Follow up: Response: No adverse reaction ha1 Medication: 01:13 VIS not applicable for this client. kd3 Intake: 01:02 IV: 500ml; Total: 500ml. ha1 Outcome: 01:02 Discharge ordered by . cp 01:12 Discharged to home ambulatory. kd3 01:12 Condition: stable 01:12 Discharge instructions given to patient, Instructed on discharge instructions, follow up and referral plans. medication usage, Demonstrated understanding of instructions, follow-up care, medications, Prescriptions given X 3. 01:13 Patient left the ED. kd3 Signatures: Mynor Peña PA PA cp Paniauga, Brittany bp1 Dibbern, Lauren, RN RN ld1 Corry Chou RN RN kd3 Zee Corona RN RN ha1 Corrections: (The following items were deleted from the chart) 01:02 01:01 IV Status: Completed infusion; IV Intake: 500ml ha1 ha1
--- NOTE | 2022-06-15 01:03 | EDPHYS ---
Physician Documentation [facility] Name: Ruben Alamo Age: 46 yrs Sex: Male : 1975 Arrival Date: 06/14/2022 Time: 22:54 Bed 23 Private MD: ED Physician Tip Vegas HPI: 06/14 23:25 This 46 yrs old Black Male presents to ER via Ambulatory with complaints of Headache. cp 23:25 The patient complains of pain to the left side of head and left side of face. The cp patient describes the headache as aching. Onset: The symptoms/episode began/occurred 2 hour(s) ago. 23:25 Associated signs and symptoms: Pertinent negatives: altered mental status, fever, neck cp stiffness, paresthesias, sinus congestion, sinus tenderness, vision changes. Severity of symptoms: in the emergency department the pain is unchanged, despite home interventions. Historical: - Allergies: 23:08 Iodine; ld1 23:08 PENICILLINS; ld1 23:08 SHELLFISH; ld1 - Home Meds: 23:08 hydrocodone-acetaminophen 10-325 mg/15 mL(15 mL) Oral soln 15 mL every 6 hours [Active];ld1 - PMHx: 23:08 Chronic pain; ld1 - PSHx: 23:08 Spinal surgery; ld1 - Immunization history:: Adult Immunizations up to date, Client reports receiving the 2nd dose of the Covid vaccine. - Social history:: Smoking status: Patient denies any tobacco usage or history of. Patient/guardian denies using alcohol. ROS: 23:30 Constitutional: Negative for body aches, chills, fever, poor PO intake. cp 23:30 Eyes: Negative for injury, pain, redness, and discharge. cp 23:30 ENT: Negative for drainage from ear(s), ear pain, sore throat, difficulty swallowing, difficulty handling secretions. 23:30 Neck: Negative for pain with movement, pain at rest, stiffness, swelling. 23:30 Cardiovascular: Negative for chest pain, edema, palpitations. 23:30 Respiratory: Negative for cough, shortness of breath, wheezing. 23:30 Abdomen/GI: Negative for abdominal pain, vomiting, diarrhea, constipation. 23:30 Skin: Negative for rash. 23:30 Neuro: Positive for headache, Negative for altered mental status, dizziness, numbness, syncope, weakness. 23:30 All other systems are negative. Exam: 23:35 Constitutional: The patient appears in no acute distress, alert, awake, cp non-diaphoretic, non-toxic, well developed, well nourished, obese. 23:35 Head/Face: Normocephalic, atraumatic. cp 23:35 Eyes: Periorbital structures: appear normal, Pupils: equal, round, and reactive to cp light and accomodation, Extraocular movements: intact throughout, Conjunctiva: normal, no exudate, no injection, Sclera: no appreciated abnormality, Lids and lashes: appear normal, bilaterally. 23:35 ENT: External ear(s): are unremarkable, Ear canal(s): are normal, clear, TM's: cp dullness, bilaterally, Nose: is normal, Mouth: Lips: moist, Oral mucosa: pink and intact, moist, Posterior pharynx: Airway: no evidence of obstruction, patent. 23:35 Neck: ROM/movement: is normal, is supple, without pain, no range of motions limitations, no meningismus, no nuchal rigidity, Lymph nodes: no appreciated lymphadenopathy. 23:35 Chest/axilla: Inspection: normal, Palpation: is normal, no crepitus, no tenderness. 23:35 Cardiovascular: Rate: normal, Rhythm: regular, Edema: is not appreciated, JVD: is not appreciated. 23:35 Respiratory: the patient does not display signs of respiratory distress, Respirations: normal, no use of accessory muscles, no retractions, labored breathing, is not present, Breath sounds: are clear throughout, no decreased breath sounds, no stridor, no wheezing. 23:35 Abdomen/GI: Inspection: Palpation: abdomen is soft and non-tender, in all quadrants. 23:35 Back: pain, is absent, ROM is normal. cp 23:35 Neuro: Orientation: to person, place \T\ time. Mentation: is normal, Cerebellar function: is grossly normal, Motor: moves all fours, strength is normal, Sensation: is normal, Gait: is steady, at a normal pace, without difficulty. Vital Signs: 23:07 BP 139 / 83; Pulse 96; Resp 18; Temp 97.9(TE); Pulse Ox 97% on R/A; Weight 127.01 kg; ld1 Height 5 ft. 4 in. (162.56 cm); Pain 10/; 06/15 00:30 BP 135 / 79; Pulse 60; Resp 17 S; Pulse Ox 97% on R/A; ha1 06/14 23:07 Body Mass Index 48.06 (127.01 kg, 162.56 cm) ld1 MDM: 06/14 23:35 Patient medically screened. cp 06/15 01:00 Data reviewed: vital signs, nurses notes. ED course: Patient sleeping in exam room, cp appears comfortable. Will discharge to home for continued monitoring. 06/14 23:44 Order name: IV; Complete Time: 01:06 cp Administered Medications: 00:34 Drug: Benadryl (diphenhydrAMINE) 25 mg Route: IVP; Site: right hand; ha1 01:01 Follow up: Response: No adverse reaction ha1 00:34 Drug: Ketorolac 30 mg Route: IVP; Site: right hand; ha1 01:01 Follow up: Response: No adverse reaction ha1 00:34 Drug: Decadron - Dexamethasone 10 mg Route: IVP; Site: right hand; ha1 01:01 Follow up: Response: No adverse reaction ha1 00:35 Drug: NS 0.9% 1000 ml Route: IV; Rate: 1 bolus; Site: right hand; ha1 01:02 Follow up: Response: No adverse reaction; IV Status: Completed infusion; IV Intake: ha1 500ml 00:35 Drug: Reglan (metoCLOPramide) 10 mg Route: IVP; Site: right hand; ha1 01:01 Follow up: Response: No adverse reaction ha1 Disposition: 09:23 Co-signature as Attending Physician, Tip MONTANO was immediately available on-site ms3 in the Emergency Department for consultation in the care of the patient.. Disposition Summary: 06/15/22 01:02 Discharge Ordered Location: Home cp Problem: new cp Symptoms: have improved cp Condition: Stable cp Diagnosis - Headache cp Followup: cp - With: Private Physician - When: 1 - 2 days - Reason: Recheck today's complaints Discharge Instructions: - Discharge Summary Sheet cp - General Headache Without Cause cp Forms: - Medication Reconciliation Form cp - Thank You Letter cp - Antibiotic Education cp - Prescription Opioid Use cp Prescriptions: - Fioricet 50-300-40 mg Oral capsule - take 1 capsule by ORAL route every 4 hours as needed; 20 capsule; Refills: 0, cp Product Selection Permitted - Ibuprofen 800 mg Oral Tablet - take 1 tablet by ORAL route every 8 hours As needed take with food; 30 tablet; cp Refills: 0, Product Selection Permitted - Zofran 4 mg Oral Tablet - take 1 tablet by ORAL route every 12 hours As needed; 20 tablet; Refills: 0, cp Product Selection Permitted Signatures: Mynor Peña PA PA cp Tip Vegas DO DO ms3 Lamar Mercado RN RN ld1 Zee Corona RN RN ha1 Corrections: (The following items were deleted from the chart) 06/16 01:06/14 23:35 Abdomen/GI: Inspection: cp cp 06/16 01:06/15 23:35 Back: pain, is absent, ROM is normal, cp cp 06/16 01:06/15 23:35 Neuro: Orientation: to person, place \T\ time. Mentation: is normal, cp Cerebellar function: is grossly normal, Motor: moves all fours, strength is normal, Sensation: is normal, Gait: is steady, at a normal pace, without difficulty, cp
[2022-06-16 20:04] VITALS: O2SAT 97
[2022-06-16 20:08] VITALS: BP 139/83; TEMP 97.9
== END 2022-06-15 01:13 | disposition home or self-care (01) ==
LOC: ER 22:42
DX: R51.9 Headache, unspecified (principal); Z88.0 Allergy status to penicillin; Z91.013 Allergy to seafood; Z91.048 Other nonmedicinal substance allergy status
CPT/HCPCS: 96374; 96375; 99284; J1100; J1200; J2765; J7030

== ENCOUNTER 2022-06-20 20:52 | Emergency (ER) | payer SELFPAY ==
--- OUTSIDE RECORDS SUMMARY | 2022-06-20 20:56 | XMS REPORT | Continuity of Care Document ---
:1975 Author Organization [facility] t Address [address] [place] [address] Care Team Providers Name Role Phone Asked, No Pcp Primary Care Physician Unavailable Isaiah Reynolds MD Attending Clinician [phone] ANGIE ROSAS Attending Clinician Unavailable Angie Purvis Attending Clinician Kaycee Butt MD Attending [...] rs active active ity of problems problems [facility] Lumbago Lumbago Problem Active 2017-11-07 Me moria with with 03:47:18 l sciatica, sciatica, Herm marcus left side left side Active Problem 11/07/2017 Family Diagnostic Body mass Body mass Problem Active 2017-11-07 Memoria index index 03:47:18 l (BMI) (BMI) 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, 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, 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 Active Problem 11/07/2017 Family Diagnostic Other Other Problem Active 2017-11-07 Memor ia chronic chronic 03:47:18 l pain pain Tavo Active Problem 11/07/2017 Family Diagnostic Allergies, Adverse Reactions, Alerts Allergy Allergy Status Severity Reaction(s) Onset Inactive Treating Comm ents Source Name Type Date Date Clinician Iodine Propensi Active Anaphylaxis Met hodi ty to 06-18 st adverse 00:00: Hospita reaction 00 l s to drug Penicill Propensi Active Other (See Told by Gris bermudez ins ty to Comments) 06-18 st adverse 00:00: since Hospita reaction 00 childhood l s to drug Shellfis Propensi Active Anaphylaxis M ethodi h ty to 25 st Derived adverse 00:00: Hospita reaction 00 l s to drug Shellfis Propensi Active Unknown - Uni vers h ty to See comments 816 ity of Derived adverse 00:00: [place] reaction 00 Medical s Branch SHELLFIS DRUG Active Unknown-Cmnt Un butch H INGREDI 8-16 ity of DERIVED 00:00: Medical Branch No Known DA Active U [facility] All[facility]ie 3-05 [place] [facility] 00:00: Regiona 00 [facility] No Known DA Active U 2019- [facility] Allergie 3-05 [place] 00:00: Regiona [facility] NO KNOWN Drug Active Univers ALLERGIE Class ity of S [place] [facility] [place] Social History Social Habit Start Date Stop Date Quantity Comments Source Tobacco use and 2022-06-18 2022-06-18 Smokeless tobacco [facility] exposure 00:00:00 00:00:00 non-user Exposure to 2022-05-20 2022-05-30 Not sure [facility] SARS-CoV-2 00:00:00 20:57:00 [facility] (event) Branch Sex Assigned At [birth year] [facility] [place] [facility] 00:00:00 00:00:00 Smoking Status Start Date Stop Date Source Tobacco smoking consumption unknown [facility] [place] [facility] Never smoked tobacco [facility] ospital Medications Ordered Filled Start Stop Current Ordering Indication Dosage Frequency Signature Comments Components Source Medication Medication Date Date Medication? Clinician (SIG) Name Name carBAMazepi 2021- Yes Take 1 Met hodi ne XR 06-18 10-[address] (TEGretol 00:00: 04:59 (200 mg Hosp [facility] XR) 200 MG 00 :00 total) by l 12 hr mouth tablet daily for 7 days, THEN 1 tablet (200 mg total) every other day for 7 days. diclofenac 2021- Yes 50mg Q.5D Take 1 Meth willi (VOLTAREN) 06-18 10-03 tablet (50 st 50 MG EC 00:00: 04:59 mg total) Hos byron tablet 00 :00 by mouth 2 l (two) times a day as needed (for pain and swelling. take w/ food) for up to 7 days. lidocaine 2021- Yes 4mL Q.[id number] Apply 4 mL Methodi HCL 06-[id number] (lidocaine) 00:00: 04:59 3D 3 (three) Hospita 2 % 00 :00 times a l solution day for 3 days. Apply to cottonball and place it by toothache butalbital- 2021- No 1{tbl} 1 tablet, Univers acetaminoph 05-31 Oral, ity of en-caff 02:30: 02:22 ONCE, 1 [place] (ESGIC) 00 :00 dose, On Medical 50-325-40 05/30/22 Bran ch mg tablet 1 at 2130, tablet CHRISTINA butalbital- Yes [id number] 1{tbl} Take 1 Univers acetaminoph 9-06 tablet by ity of en-caff 00:00: mouth [place] 50-325-40 00 every 6 Medical mg tablet (six) Branch hours as needed for Pain (scale 4-6) or Pain (scale 7-10). ondansetron 2021- Yes 4mg Q8H Take 1 Met hodi ODT 8-27 -27 tablet (4 st (ZOFRAN-ODT 00:00: 04:59 mg total) [facility] 4 MG 00 :00 by mouth l disintegrat every 8 ing tablet (eight) hours as needed for nausea or vomiting for up to 30 days. ondansetron 2021- Yes 4mg Q8H Take 1 Met hodi ODT 8-20 06- tablet (4 st (ZOFRAN-ODT 00:00: 04:59 mg total) Hospita ) 4 MG 00 :00 by mouth l disintegrat every 8 ing tablet (eight) hours as needed for nausea or vomiting for up to 30 days. ondansetron 2021- No 4mg Q8H Take 1 Met hodi ODT 8-20 06- tablet (4 st (ZOFRAN-ODT 00:00: 04:59 mg [...] to 30 days. LISINOPRIL Yes Take by [facility] ers ORAL 8-16 mouth. ity of 21:45: [place] 20 Medical Branch HYDROcodone Yes 1{tbl} Take [...] mg Sun Branch 04/23/22 at 1515, CHRISTINA Hydrocodone Yes Toussaint 1 tablet Memoria -Acetaminop 2-14 Irfan as needed l hen 03:47: Tavo Garibay Carisoprodo 2017-0 Yes [place]aint 1 tablet Memoria l 2-14 Irfan as needed l 03:47: Tavo Meloxicam 2017- Yes T[place]aint 1 tablet Memoria 2-14 Irfan l 03:47: Tavo 13 Hydrocodone 2017-0 Yes T[place]aint 1 tablet Memoria -Acetaminop 2-14 Irfan as needed l hen 03:47: Tavo Carisoprodo 2017-0 Yes [place]aint 1 tablet Memoria l 2-14 Irfan as needed l 03:47: Tavo 13 Meloxicam 2017-0 Yes [place]aint 1 tablet Memoria 2-14 Irfan l 03:47: Tavo Acetaminoph Yes Toussaint 1 tablet Memoria en-Codeine 2-01 Irfan as needed l #3 00:00: Acetaminoph 0 Yes T[place]aint 1 tablet Memoria en-Codeine 2-01 Irfan as needed l #3 00:00: Prednisone Prednisone 2017-0 Yes 60mg QD C [facility] l (LUF/LI V/SA) [place] 0 Yes Toussaint 1 tablet Enrique elkin 1-15 Irfan as needed l 00:00: [place] 0 Yes Toussaint 1 tablet Memor ia 1-15 Irfan as needed l 00:00: Meloxicam 2017-0 Yes Toussaint 1 tablet Memoria 1-15 Irfan l 00:00: [place] 0 Yes Toussaint 1 tablet Enrique elkin 1-15 Irfan as needed l 00:00: [place] 0 Yes Toussaint 1 tablet Memor ia 1-15 Irfan as needed l 00:00: Meloxicam 2017-0 Yes Toussaint 1 tablet Memoria 1-15 Irfan l 00:00: acetaminoph 0 Yes 1{tbl} Take 1 Tab Univers en-codeine 3-31 by mouth ity o f (TYLENOL-CO 00:00: every 4 [place]ava[place] as DEINE #3) 00 (four) Medical 300-30 mg hours as Branch tablet needed for Pain (scale 4-6). acetaminoph 0 Yes 1{tbl} Take 1 Tab Univers en-codeine 3-31 by mouth ity o f (TYLENOL-CO 00:00: every 4 [place] as DEINE #3) 00 (four) Medical 300-30 mg hours as Branch tablet needed for Pain (scale 4-6). acetaminoph 0 Yes 1{tbl} Take 1 Tab Univers en-codeine 3-31 by mouth ity o f (TYLENOL-CO 00:00: every 4 [place] as DEINE #3) 00 (four) Medical 300-30 mg hours as Branch tablet needed for Pain (scale 4-6). Vital Signs Vital Name Observation Time Observation Value Comments Source Systolic blood 2022-05-31 01:59:00 128 mm[Hg] Univer sity of pressure [facility] Diastolic blood 2022-05-31 01:59:00 81 mm[Hg] Unive rsity of pressure [place] [facility] Heart rate 2022-05-31 01:59:00 78 /min Universi ty [facility] [place] [facility] Body temperature 2022-05-31 01:59:00 36.94 Amisha Univ ersity of [place] [facility] Respiratory rate 2022-05-31 01:59:00 18 /min Univ ersity of [place] [facility] Body height 2022-05-31 01:59:00 165.1 cm [facility]i ty [facility] [place] [facility] Body weight 2022-05-31 01:59:00 127.007 kg [facility]i ty [facility] [place] [facility] BMI 2022-05-31 01:59:00 46.59 kg/m2 Universi ty [facility] [place] [facility] Oxygen saturation in 2022-05-31 01:59:00 95 /min University of Arterial blood by [place] PISTIS Consult shannan Pulse oximetry Branch Systolic blood 2022-05-10 02:39:00 148 mm[Hg] Univer sity of pressure [place] [facility] Diastolic blood 2022-05-10 02:39:00 84 mm[Hg] Unive rsity of pressure [place] [facility] Heart rate 2022-05-10 02:39:00 70 /min Universi ty [facility] [place] [facility] Body temperature 2022-05-10 02:39:00 37.56 Amisha Univ [facility] [place] [facility] Respiratory rate 2022-05-10 02:39:00 18 /min Univ ersity [facility] [place] [facility] Body height 2022-05-10 02:39:00 162.6 cm [facility]i [facility] [place] [facility] Body weight 2022-05-10 02:39:00 127.007 kg [facility] [place] [facility] BMI 2022-05-10 02:39:00 48.06 kg/m2 [facility]i ty [facility] [place] [facility] Oxygen saturation in 2022-05-10 02:39:00 95 /min University of Arterial blood by [place] PISTIS Consult shannan Pulse oximetry Branch Body weight 2022-04-23 20:11:00 133.131 kg [facility] [place] [facility] BMI 2022-04-23 20:11:00 50.38 kg/m2 [facility] [place] [facility] Systolic blood 2022-04-23 20:09:00 140 mm[Hg] Univer sity of pressure [place] [facility] Diastolic blood 2022-04-23 20:09:00 81 mm[Hg] Unive rsity of pressure [facility] Heart rate 2022-04-23 20:09:00 66 /min Universi ty [facility] Body temperature 2022-04-23 20:09:00 36.72 Amisha Univ ersity of [facility] Respiratory rate 2022-04-23 20:09:00 17 /min [facility] Body height 2022-04-23 20:09:00 162.6 cm Universi [facility] Oxygen saturation in 2022-04-23 20:09:00 97 /min University Arterial blood by [facility] Pulse oximetry Branch Systolic blood 2022-06-18 15:20:24 157 mm[Hg] Method [facility] pressure Diastolic blood 2022-06-18 15:20:24 74 mm[Hg] [facility] pressure Heart rate 2022-06-18 15:20:24 53 /min [facility] Body temperature 2022-06-18 15:20:24 36.78 Amisha [facility] Respiratory rate 2022-06-18 15:20:24 16 /min [facility] Oxygen saturation in 2022-06-18 15:20:24 97 /min [facility] Arterial blood by Pulse oximetry Body height 2022-06-18 12:48:00 162.6 cm [facility] Body weight 2022-06-18 12:48:00 127.007 kg [facility] BMI 2022-06-18 12:48:00 48.06 kg/m2 [facility] Systolic blood 2022-05-21 00:33:00 132 mm[Hg] Method [facility] pressure Diastolic blood 2022-05-21 00:33:00 64 mm[Hg] [facility] pressure Heart rate 2022-05-21 00:33:00 64 /min [facility] Oxygen saturation in 2022-05-21 00:33:00 98 /min [facility] [place] [facility] Arterial blood by Pulse oximetry Body temperature 2022-05-20 23:53:12 36.17 Amisha [facility] Respiratory rate 2022-05-20 23:53:12 18 /min [facility] Body height 2022-05-20 23:52:00 162.6 cm [facility] Body weight 2022-05-20 23:52:00 127.007 kg [facility] BMI 2022-05-20 23:52:00 48.06 kg/m2 [facility] Weight 2017-10-25 15:00:00 [facility] Height 2017-10-25 15:00:00 [facility] Temperature Oral (F) 2017-10-25 15:00:00 97.8 F [facility] Heart Rate 2017-10-25 15:00:00 [facility] Diastolic (mm Hg) 2017-10-25 15:00:00 Mem orial [facility] Systolic (mm Hg) 2017-10-25 15:00:00 Enrique rial [facility] Body Temperature 2017-10-21 12:00:00 97.5 F [facility] (LUF/BLANCA/SA) Respiratory Rate 2017-10-21 12:00:00 20 /min [facility] (F/BLANCA/SA) O2% BldC Oximetry 2017-10-21 12:00:00 98 % [facility] (LUF/BLANCA/SA) BP Systolic 2017-10-21 12:00:00 132 [facility]Hg[facility] BP Diastolic 2017-10-21 12:00:00 78 mm[Hg] [facility] Height 2017-10-21 12:00:00 64 in [facility] ([facility]BL[facility]CA[facility]SA) Weight Measured 2017-10-21 12:00:00 282.19 lbs [facility] (LUF/BLANCA/SA) BMI (Body Mass 2017-10-21 12:00:00 48.7 [facility]) [facility] (LUF/BLANCA/SA) Weight 2017-10-08 15:45:00 [facility] Height 2017-10-08 15:45:00 [facility] Temperature Oral (F) 2017-10-08 15:45:00 96.8 F [facility] Heart Rate 2017-10-08 15:45:00 [facility] Diastolic (mm Hg) 2017-10-08 15:45:00 Mem orial Tavo Systolic (mm Hg) 2017-10-08 15:45:00 Enrique rial Tavo Procedures Procedure Date / Time Performing Clinician Source Performed CT MAXILLOFACIAL WO 2022-06-18 14:48:32 Abdi [facility] CONTRAST CONSENT/REFUSAL FOR 2022-05-31 01:55:15 Doctor Unassigned, No [facility] [place] DIAGNOSIS AND TREATMENT Name Medical Branch CT CERVICAL SPINE WO 2022-05-21 01:24:[facility] WO CONTRAST 2022-05-21 01:15:40 [facility] POC GLUCOSE 2022-05-21 00:33:00 [facility] NOTICE OF PRIVACY 2022-05-10 02:37:04 Doctor Unassigned, No Univ [facility] [place] PRACTICES Name Medical Branch CONSENT/REFUSAL FOR 2022-05-10 02:35:02 Doctor Unassigned, No [facility] [place] DIAGNOSIS AND TREATMENT Name Medical Branch CONSENT/REFUSAL FOR 2022-04-23 20:00:28 Doctor Unassigned, No [facility] [place] DIAGNOSIS AND TREATMENT Name Medical Branch Plan of Care Planned Activity Planned Date Details Comments Source Future Scheduled 2022-06-18 [facility] 09:25:33 VACCINES (1 of 3 - 3-dose series) [code = HEPATITIS B VACCINES (1 of 3 - 3-dose series)] Future Scheduled 2022-06-18 Hepatitis C [facility] 09:25:33 screening (procedure) [code = 166746891] Future Scheduled 2022-06-18 COVID-19 VACCINE (3 [facility] Test 09:25:33 - Booster for Pfizer series) [code = COVID-19 VACCINE (3 - Booster for Pfizer series)] Future Scheduled 2022-06-18 INFLUENZA VACCINE [facility] Test 09:25:33 [code = INFLUENZA VACCINE] Future Scheduled 2022-06-09 [facility]IS [facility] 18:36:38 VACCINES (1 of 3 - 3-dose series) [code = HEPATITIS B VACCINES (1 of 3 - 3-dose series)] Future Scheduled 2022-06-09 [facility] 18:36:38 screening (procedure) [code = 511187762] Future Scheduled 2022-06-09 COVID-19 VACCINE (3 [facility] Test 18:36:38 - Booster for Pfizer series) [code = COVID-19 VACCINE (3 - Booster for Pfizer series)] Future Scheduled 2022-06-09 INFLUENZA VACCINE Method [facility] Test 18:36:38 [code = INFLUENZA VACCINE] Future Scheduled 2022-05-25 HEPATITIS [facility] 07:52:22 VACCINES (1 of 3 - 3-dose series) [code = HEPATITIS B VACCINES (1 of 3 - 3-dose series)] Future Scheduled 2022-05-25 [facility] Test 07:52:22 screening (procedure) [code = 021433158] Future Scheduled 2022-05-25 COVID-19 VACCINE (3 [facility] Test 07:52:22 - Booster for Pfizer series) [code = COVID-19 VACCINE (3 - Booster for Pfizer series)] Future Scheduled 2022-05-25 INFLUENZA VACCINE [facility] Test 07:52:22 [code = INFLUENZA VACCINE] Future Scheduled 2022-05-25 HE[facility]ITIS [facility] 07:52:22 VACCINES (1 of 3 - 3-dose series) [code = HEPATITIS B VACCINES (1 of 3 - 3-dose series)] Future Scheduled 2022-05-25 [facility] Test 07:52:22 screening (procedure) [code = 098428571] Future Scheduled 2022-05-25 COVID-19 VACCINE (3 [facility] Test 07:52:22 - Booster for Pfizer series) [code = COVID-19 VACCINE (3 - Booster for Pfizer series)] Future Scheduled 2022-05-25 INFLUENZA VACCINE [facility] Test 07:52:22 [code = INFLUENZA VACCINE] Encounters Start End Encounter Admission Attending Care Care Encounter Source Date/Time Date/Time Type Type Clinicians Facility Department ID 2022-06-20 Outpatient [id number]-B Memoria 20:55:03 [id number]-5TRU 9E-4FBC-9E6 39E-4FBC- 9 l -6R35-U88 0-T13FGB020 T93-U53KAE Soldier [id number] 7B9 [id number] 2022-06-18 Outpatient [id number] 41FC-3 Memoria 07:44:31 8V27-7WZL 17-4EED-9D8 N77-4OJF- 9 l -2C36-F1V 1-C4EJ945M5 V71-M7GP84 Tavo [id number] A09 2A0A09 2022-06-14 Outpatient [id number]-D Memoria 22:44:21 J11G-2K59 0A-3Z22-403 90A-4A19- 9 l -9064-22B 4-53A866H7N 064-32N283 Tavo [id number] 120 T0B562 2022-06-08 Outpatient [id number] 4BD7-F Memoria 21:22:44 D72Q-0EI7 4B-8QD8-922 44B-4BC4- 8 l -819B-E8C B-[id number] 19B-V4I989 Tavo [id number] C63 [id number] 2022-06-03 Outpatient [id number]- [id number] ABCB 93A3-4 Memoria 01:33:52 4565-43DE 65-43DE-92E 565-43DE- 9 l -24F9-520 7-456AD10RH 4B5-887BO4 Soldier [id number] 217 0DI795 2022-05-30 Outpatient [id number] [id number] F493-4 Memoria 20:55:52 2M60-817P 39-438E-9B8 M22-080T- 9 l -2Q31-1SA 0-6TOA4D8ST Z98-6ASI6G Soldier [id number] F41 4BEF41 2022-05-20 Outpatient [id number] A21D-1 Memoria 18:55:15 1FAA-4CF3 AA-9TJ0-02Z FAA-4CF3- 8 l -80ED-A77 D-V88M22774 0ED-A77A25 Soldier [id number] 4415-09-27 Outpatient [id number] Memoria 14:21:52 07Q0-0TIG F0-4CEA-948 0B4-9KLG- 9 l -9486-B77 6-H55JSD0L3 486-B77BBD Tavo INT6W07G2 4C4 1C14C4 2021-06-20 Outpatient [id number] BE16-8 Memoria 14:21:45 8434-49AE 34-49AE-95B 434-49AE- 9 l -95BD-57D D-36KS73P6D 5BD-57DA06 Tavo [id number] 032 B8A625 2021-05-30 Outpatient [id number] [id number] Memoria 15:44:20 DAF5-4596 F5-4596-BFE AF5-4596- B l -BFE1-51A 1-09IVK33PO FE1-51ACA1 Soldier [id number] 1BA 9CA1BA 2020-01-20 Inpatient [facility] [id number] [facility] 15:25:00 21 [facility] 2019-12-16 Inpatient [facility] [id number] [facility] 17:49:00 32 [facility] 2019-12-12 Inpatient [facility] [id number] [facility] 08:32:00 83 [facility] 2019-11-27 Inpatient [facility] [id number] [facility] 07:33:00 06 [facility] 2022-06-18 2022-06-18 Emergency Sravanthi, 1.2.840.1 [id number] Methodi 07:52:00 10:32:[address]hash 3.430.2.7 [facility] .3.206887 l .8 2022-06-18 2022-06-18 Emergency SRAVANTHI, [facility] [id number] [place] [address] 00:00:00 00:00:[address] ISAIA[address] 2022-05-30 2022-05-30 Emergency X RALPH, RUST ERT [id number] [facility] 21:02:00 21:53:00 ANGIE ibrahim [facility] 2022-05-30 2022-05-30 Emergency RalphRUST 1.2.139.965 [id number] [facility] 21:02:00 21:53:00 Angie RUSSO 350.1.13.10 i ty of [facility] 4.2.7.2.686 [facility] [id number] [address] 2022-05-20 2022-05-20 Emergency PhilippRomelia 1.2.840.1 [id number] Methodi 19:29:00 21:04:00 Kaycee rasmussen [address]64.[address] 3.430.2.7 Hospit a .3.477087 l .8 2022-05-20 2022-05-20 Travel 1.2.840.1 1.2.211.365 8749 [id number] Methodi 00:00:00 00:00:[address] 3.430.2.7 0.2.7.3.698 Ho spita .3.988289 084.8 l .8 2022-05-20 2022-05-20 Emergency DARCISamROMELIA [facility] 064 [id number] Sundance 00:00:00 00:00:00 KAYCEE RASMUSSEN [address] 2022-05-20 2022-05-20 Travel 1.2.840.1 1.2.806.766 1097 [id number] Methodi 00:00:00 00:00:[address] 3.430.2.7 0.2.7.3.698 Ho spita .3.764641 084.8 l .8 2022-05-09 2022-05-09 Emergency X JESSYRUST ERT [id number] Univers 21:45:00 21:46:00 CHER ibrahim [facility] 2022-05-09 2022-05-09 Emergency JessyRUST 1.2.840.114 [id number] Univers 21:45:00 21:46:00 Cher RUSSO 350.1.13.10 ity of [facility] 4.2.7.2.686 [facility] [id number] [place] [id number] Branch 2022-04-23 2022-04-23 Emergency X RIDDLE, RUST ERT [id number] Univers 15:11:00 15:52:00 BO fu [facility] 2022-04-23 2022-04-23 Emergency [place], RUST 1.2.231.726 [id number] [id number] Univers 15:11:00 15:52:00 Bo RUSSO 350.1.13.10 [facility] 4.2.7.2.686 [facility] [id number] [facility] 084 Branch 2021-09-14 2021-09-14 Outpatient FERGUSON_JO [facility] [id number] [place] 02:13:00 02:13[place] [id number] [facility] 2021-09-08 2021-09-08 Outpatient FERGUSON_JO MEHOP [facility] 117 942 [place] 02:19:00 02:19:00 [place] [id number] [facility] 2017-11-01 2017-11-01 Outpatient Family Family [id number] eClinic 10:47:00 10:47:00 [facility] Clinic 2017-10-25 2017-10-25 Outpatient Family Family [id number] eClinic 09:00:00 09:00:00 [facility] Clinic 2017-10-21 2017-10-21 PAIN IN NIKKI, [facility] [id number] [facility] 11:51:00 14:48:00 THORACIC BETHANY [facility]OO [facility], [address], (LUF/[place] [address] 2017-10-21 2017-10-21 PAIN IN NIKKI, [facility] [id number] 11:51:00 14:48:00 THORACIC BETHANY CHANGSTON SPINE N 2017-10-08 2017-10-08 Outpatient Family Family [id number] eClinic 09:45:00 09:45:00 [facility] Clinic Results Test Description Test Time Test Comments Results Result Comments Source POC glucose 2022-05-21 00:34:00 Test Item Value Reference Range Interpretation Comme nts POC glucose (test code = 67289-7) 217 mg/dL 65-100 H Study Specialist Name: Zach BinGalina ID: [id number] Lab Interpretation (test code = Abnormal 68549-2) [facility] [id number] 00:34:00 Test Item Value Reference Range Interpretation Comments POC glucose (test code = 217 mg/dL 65-100 H Ope rator Name: Zach 06641-4) BinosDevice ID: [id number] Lab Interpretation (test Abnormal code = 07441-7) [facility] [id number] 00:34:00 Test Item Value Reference Range Interpretation Comments POC glucose (test code = 217 mg/dL 65-100 H Ope rator Name: Zach 81070-3) BinosDevice ID: [id number] Lab Interpretation (test Abnormal code = 96993-7) [facility] [id number] 00:34:00 Test Item Value Reference Range Interpretation Comments POC glucose (test code = 217 mg/dL 65-100 H Ope rator Name: Zach 82877-6) BinosDevice ID: [id number] Lab Interpretation (test Abnormal code = 50978-4) [facility] HEAD/BRAIN W/O [id number] 18:19:00 Patient Name: VIMAL BARROSO Unit No: [id number] EXAMS: CPT CODE: [id number] CT HEAD/BRAIN W/O CONT 00065 CLINICAL INFORMATION: Moderate frontal headaches. Coughing. Dictation [...] Trnscrpt: 12/16/2019 (1818) KirtAGV LORETA Lopez NAME: CALLY[address] PHYS: Germania Isaacs NP [place] [address] : 1975 AGE: 44 SEX: M LOC: NohemyERS PHONE #: [phone] EXAM DATE: 12/16/2019 STATUS: PRE ER FAX #: [phone] RAD #: D/C DT PAGE 1 Signed Report Patient Name: VIMAL BARROSO Unit No: [id number] EXAMS: CPT CODE: [id number] CT HEAD/BRAIN W/O CONT 31365 (Continued) Orig Print D/T: S: 12/16/2019 (1821) LORETA Lopez NAME: CALLY[address] PHYS: Germania Isaacs NP [place] [address] : 1975 AGE: 44 SEX: M LOC: B.ERS PHONE #: [phone] EXAM DATE: 12/16/2019 STATUS: PRE ER FAX #: [phone] RAD #: D/C DT PAGE 2 Signed Report- XR CHEST 2 [id number] 09:11:00 FAX: Germania Engel NP [phone] Nolan: E St: REG Patient Name: VIMAL BARROSO Unit No: [id number] EXAMS: CPT CODE: [id number] XR CHEST 2 V 82192 - XR CHEST 2 V LOCATION: T18 INDICATION:Cough The lungs are well expanded and free of infiltrates. The costophrenic recesses are sharp without effusion. The heart, mediastinumand bony structures are within normal limits. Cervical spine fusion plate noted. IMPRESSION: No active disease. at 0911 Reported and signed by: Zach Rubi D.O. CC: Germania Engel NP Dictated Date/Time: 12/12/2019 (910)Technologist: Shannan Schmitz Transcribed Date/Time: 12/12/2019 (910) By: Joanna Orig Print D/T: S:12/12/2019 (913) [facility] Jessica NAME: VIMAL BARROSO [address] [place] [address] PHYS: Germania Isaacs NP [place], [place] [address] : 1975 AGE: 44 SEX: M LOC: B.ERS PHONE #: [phone] EXAM DATE: 12/12/2019 STATUS: REG ER FAX #: [phone] RAD NO: DC Dt: PAGE 1 Signed ReportSPINE LUMBAR [id number] 13:37:[address] [id number] IMAGING REPORTPatient Name: Lili BARROSO of Service: [id number]: 41 Sex: M Order #: [id number] [facility] 1975 [facility] Number: [id number] Record Number: [id number] Hospital Number: [id number] Physician: Agatha CROW Physician: RUBY TREVIÑO LUMBAR [...]
[2022-06-20] MEDS ORDERED: NA CHLORIDE 0.9% 1,000 ML ONE (23:47)
[2022-06-20] MEDS ORDERED: METOCLOPRAMIDE 10 MG/2mL INJ ONE (23:47)
[2022-06-20] MEDS ORDERED: MORPHINE 4 MG/ML SYR ONE (23:49)
[2022-06-21] MEDS ORDERED: KETOROLAC 30 MG/ML INJ ONE (01:43)
[2022-06-21] MEDS ORDERED: dexAMETHasone 10 MG/ML VIAL ONE (01:43)
[2022-06-21 01:59] LABS: Absolute Lymphocytes (CBC) 2.6 K/uL (0.7-4.9); Hematocrit 38.7 % (39.6-49.0); Lymphocytes % 28.7 % (15.3-44.8); MCV 90.1 fL (80-100); MPV 9.5 fL (7.6-11.3)
[2022-06-21 02:08] LABS: Potassium 3.5 mmol/L (3.5-5.1)
--- NOTE | 2022-06-21 02:28 | ER ---
Nurse's Notes [facility] Name: Ruben Alamo Age: 46 yrs Sex: Male : 1975 Arrival Date: 06/20/2022 Time: 20:55 Bed 24 Private MD: Diagnosis: Headache;Jaw pain Presentation: 06/20 21:12 Chief complaint: Left sided headache and pain in upper jaw on both sides x 2 days. hb Denies cough/fever/N/V/D. Coronavirus screen: Client presents with at least one sign or symptom that may indicate coronavirus-19. Standard/surgical mask placed on the client. Provider contacted for isolation considerations. Ebola Screen: No symptoms or risks identified at this time. Initial Sepsis Screen: Does the patient meet any 2 criteria? No. Patient's initial sepsis screen is negative. Does the patient have a suspected source of infection? No. Patient's initial sepsis screen is negative. Risk Assessment: Do you want to hurt yourself or someone else? Patient reports no desire to harm self or others. Onset of symptoms was June 19, 2022. 21:12 Method Of Arrival: Ambulatory hb 21:12 Acuity: LIZBETH 3 hb Triage Assessment: 21:15 Headache History: Denies prior headaches. General: Appears in no apparent distress. hb uncomfortable, Behavior is calm, cooperative. Pain: Pain currently is 8 out of 10 on a pain scale. Neuro: Level of Consciousness is awake, alert, obeys commands, Oriented to person, place, time, situation. Cardiovascular: Patient's skin is warm and dry. Respiratory: Respiratory effort is even, unlabored, Respiratory pattern is regular, symmetrical. Historical: - Allergies: 21:14 Iodine; hb 21:14 PENICILLINS; hb 21:14 SHELLFISH; hb - Home Meds: 21:14 hydrocodone-acetaminophen 10-325 mg/15 mL(15 mL) Oral soln 15 mL every 6 hours [Active];hb - PMHx: 21:14 Chronic pain; hb - PSHx: 21:14 Spinal surgery; Facial Reconstruction; hb - Immunization history:: Adult Immunizations up to date. - Social history:: Smoking status: Patient denies any tobacco usage or history of. Screenin:37 Abuse screen: Denies threats or abuse. Denies injuries from another. Nutritional hb screening: No deficits noted. Tuberculosis screening: No symptoms or risk factors identified. Fall Risk None identified. Assessment: 21:20 General: SEE TRIAGE ASSESSMENT. hb 23:10 Reassessment: Patient is alert, oriented x 3, equal unlabored respirations, skin bb warm/dry/pink. awaiting diagnostic results. 06/21 01:51 Reassessment: Patient is alert, oriented x 3, equal unlabored respirations, skin bb warm/dry/pink. IV site intact, patent with fluids infusing awaiting disposition. 02:42 Reassessment: Patient is alert, oriented x 3, equal unlabored respirations, skin bb warm/dry/pink. pt verbalized understanding of and agrees to plan of care discharge instructions given pt ambulated with steady gait to exit Patient states feeling better. Patient states symptoms have improved. Vital Signs: 06/20 21:12 BP 148 / 83; Pulse 65; Resp 18; Temp 98.3; Pulse Ox 96% on R/A; Weight 127.01 kg; hb Height 5 ft. 4 in. (162.56 cm); Pain 8/10; 06/21 00:17 BP 133 / 83; Pulse 57; Resp 18 S; Pulse Ox 99% on R/A; bb 01:49 BP 150 / 92; Pulse 55; Resp 18 S; Pulse Ox 99% on R/A; bb 02:42 BP 140 / 76; Pulse 60; Resp 18 S; Temp 98.4(O); Pulse Ox 99% on R/A; bb 06/20 21:12 Body Mass Index 48.06 (127.01 kg, 162.56 cm) hb ED Course: 06/20 20:55 Patient arrived in ED. jj6 21:14 Triage completed. hb 21:14 Arm band placed on. hb 21:43 Mynor Peña PA is PHCP. cp 21:43 Citlaly Fitzpatrick MD is Attending Physician. cp 22:37 Patient has correct armband on for positive identification. hb 06/21 00:10 Inserted saline lock: 18 gauge in right antecubital area, using aseptic technique. bb 00:39 CT Head Brain wo Cont In Process Unspecified. EDMS 00:39 CT Facial Bones W/O Con In Process Unspecified. EDMS 01:42 Katharine Humphrey, ANAHI is Primary Nurse. bb 02:44 No provider procedures requiring assistance completed. IV discontinued, intact, bb bleeding controlled, No redness/swelling at site. Pressure dressing applied. Administered Medications: 00:21 Drug: NS 0.9% 1000 ml Route: IV; Rate: 1 bolus; Site: right antecubital; 5 02:15 Follow up: IV Status: Completed infusion; IV Intake: 950ml bb 00:21 Drug: Reglan (metoCLOPramide) 10 mg Route: IVP; Site: right antecubital; jh5 01:20 Follow up: Response: No adverse reaction bb 00:21 Drug: morphine 4 mg Route: IVP; Infused Over: 4 mins; Site: right antecubital; jh5 01:20 Follow up: Response: No adverse reaction bb 01:45 Drug: Dexamethasone 10 mg Route: IVP; Site: right antecubital; bb 02:45 Follow up: Response: No adverse reaction bb 01:48 Drug: Ketorolac 30 mg Route: IVP; Site: right antecubital; bb 02:45 Follow up: Response: No adverse reaction; Pain is decreased bb Medication: 06/20 22:37 VIS not applicable for this client. hb Intake: 06/21 02:15 IV: 950ml; Total: 950ml. bb Outcome: 02:27 Discharge ordered by MD. cp 02:44 Discharged to home ambulatory. bb 02:44 Condition: stable 02:44 Discharge instructions given to patient, Instructed on discharge instructions, follow up and referral plans. medication usage, Demonstrated understanding of instructions, follow-up care, medications, Prescriptions given X 1. 02:46 Patient left the ED. bb Signatures: Dispatcher [employer] EDKatharine Collins RN RN bb Mynor Peña PA PA cp Baxter, Heather, RN RN Trinh Castro jj6 Sultana Kelley RN RN jh5
--- NOTE | 2022-06-21 02:28 | EDPHYS ---
Physician Documentation [facility] Name: Ruben Alamo Age: 46 yrs Sex: Male : 1975 Arrival Date: 06/20/2022 Time: 20:55 Bed 24 Private MD: ED Physician Citlaly Fitzpatrick HPI: 06/20 23:45 This 46 yrs old Black Male presents to ER via Ambulatory with complaints of Headache, cp Jaw Pain. 23:45 The patient complains of pain to the left side of head. The patient describes the cp headache as aching, constant. 23:45 Onset: The symptoms/episode began/occurred 2 day(s) ago. Associated signs and symptoms: cp Pertinent positives: sinus tenderness, upper jaw pain, facial swelling, upper teeth pain, Pertinent negatives: fever, neck stiffness, vision changes, vomiting, weakness. Severity of symptoms: in the emergency department the pain is unchanged, despite home interventions. Historical: - Allergies: 21:14 Iodine; hb 21:14 PENICILLINS; hb 21:14 SHELLFISH; hb - Home Meds: 21:14 hydrocodone-acetaminophen 10-325 mg/15 mL(15 mL) Oral soln 15 mL every 6 hours [Active];hb - PMHx: 21:14 Chronic pain; hb - PSHx: 21:14 Spinal surgery; Facial Reconstruction; hb - Immunization history:: Adult Immunizations up to date. - Social history:: Smoking status: Patient denies any tobacco usage or history of. ROS: 23:50 Constitutional: Negative for body aches, chills, fever, poor PO intake. cp 23:50 Eyes: Positive for photophobia. cp 23:50 ENT: Positive for dental pain, sinus pain, upper jaw pain, Negative for drainage from ear(s), ear pain, sore throat, difficulty swallowing, difficulty handling secretions. 23:50 Neck: Negative for pain with movement, pain at rest, stiffness, tenderness, bony tenderness. 23:50 Cardiovascular: Negative for chest pain, edema, palpitations. 23:50 Respiratory: Negative for cough, shortness of breath, wheezing. 23:50 Abdomen/GI: Negative for abdominal pain, vomiting, diarrhea, constipation. 23:50 Back: Negative for pain at rest, pain with movement. 23:50 Skin: Negative for rash. 23:50 Neuro: Positive for headache, Negative for altered mental status, weakness. 23:50 All other systems are negative. Exam: 23:55 Constitutional: The patient appears in no acute distress, alert, awake, non-toxic, well cp developed, well nourished, uncomfortable. 23:55 Head/face: Sinus tenderness, that is moderate, is located over the right frontal cp sinus, left frontal sinus, right maxillary sinus and left maxillary sinus. 23:55 Eyes: Periorbital structures: appear normal, Pupils: equal, round, and reactive to light and accomodation, Extraocular movements: intact throughout, Conjunctiva: normal, no exudate, no injection, Sclera: no appreciated abnormality, Lids and lashes: appear normal, bilaterally. 23:55 ENT: External ear(s): are unremarkable, Ear canal(s): are normal, clear, TM's: bulging, is not appreciated, bilaterally, dullness, bilaterally, erythema, is not appreciated, bilaterally, Nose: is normal, Mouth: Lips: moist, Oral mucosa: moist, Gums: normal with healthy appearance, Tongue: is normal, abscess, is not appreciated, Posterior pharynx: Airway: no evidence of obstruction, patent, Tonsils: are normal in appearance, Dental exam: abscess, is not appreciated, dental caries, that is mild, pain, diffusely, specifically in the upper jaw, Voice: is normal. 23:55 Neck: ROM/movement: is normal, is supple, without pain, no range of motions cp limitations, no meningismus, no nuchal rigidity, Lymph nodes: no appreciated lymphadenopathy. 23:55 Chest/axilla: Inspection: normal. cp 23:55 Cardiovascular: Rate: normal, Rhythm: regular, Edema: is not appreciated, JVD: is not appreciated. 23:55 Respiratory: the patient does not display signs of respiratory distress, Respirations: normal, no use of accessory muscles, no retractions, labored breathing, is not present, Breath sounds: are clear throughout, no decreased breath sounds, no stridor, no wheezing. 23:55 Abdomen/GI: Inspection: abdomen appears normal, Palpation: abdomen is soft and non-tender, in all quadrants. 23:55 Neuro: Orientation: to person, place \T\ time. Mentation: is normal, Cerebellar function: is grossly normal, Motor: moves all fours, strength is normal, Sensation: is normal. Vital Signs: 21:12 BP 148 / 83; Pulse 65; Resp 18; Temp 98.3; Pulse Ox 96% on R/A; Weight 127.01 kg; hb Height 5 ft. 4 in. (162.56 cm); Pain 8/; 06/21 00:17 BP 133 / 83; Pulse 57; Resp 18 S; Pulse Ox 99% on R/A; bb 01:49 BP 150 / 92; Pulse 55; Resp 18 S; Pulse Ox 99% on R/A; bb 02:42 BP 140 / 76; Pulse 60; Resp 18 S; Temp 98.4(O); Pulse Ox 99% on R/A; bb 06/20 21:12 Body Mass Index 48.06 (127.01 kg, 162.56 cm) hb MDM: 06/20 21:57 Patient medically screened. 06/21 02:25 Data reviewed: vital signs, nurses notes, lab test result(s), radiologic studies, CT cp scan. 02:25 Differential diagnosis: meningitis, migraine, sinusitis, subarachnoid bleed, dental cp abscess. 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 Response to treatment: the patient's symptoms have markedly improved after treatment, and as a result, I will discharge patient. 06/20 23:44 Order name: CBC with Diff; Complete Time: 02:22 06/21 02:23 Interpretation: Normal except: RBC 4.30; HGB 13.1; HCT 38.7; BASO% 1.5. 06/20 23:44 Order name: BMP; Complete Time: 02:22 06/21 02:23 Interpretation: GLUC 139; CA 8.0; Reviewed. 06/20 23:41 Order name: CT Head Brain wo Cont 06/20 23:41 Order name: CT Facial Bones W/O Con 06/20 23:44 Order name: IV; Complete Time: 00:41 cp Administered Medications: 00:21 Drug: NS 0.9% 1000 ml Route: IV; Rate: 1 bolus; Site: right antecubital; 5 02:15 Follow up: IV Status: Completed infusion; IV Intake: 950ml bb 00:21 Drug: Reglan (metoCLOPramide) 10 mg Route: IVP; Site: right antecubital; jh5 01:20 Follow up: Response: No adverse reaction bb 00:21 Drug: morphine 4 mg Route: IVP; Infused Over: 4 mins; Site: right antecubital; jh5 01:20 Follow up: Response: No adverse reaction bb 01:45 Drug: Dexamethasone 10 mg Route: IVP; Site: right antecubital; bb 02:45 Follow up: Response: No adverse reaction bb 01:48 Drug: Ketorolac 30 mg Route: IVP; Site: right antecubital; bb 02:45 Follow up: Response: No adverse reaction; Pain is decreased bb Disposition Summary: 06/21/22 02:27 Discharge Ordered Location: Home cp Problem: an ongoing problem cp Symptoms: have improved cp Condition: Stable cp Diagnosis - Headache cp - Jaw pain cp Followup: cp - With: Private Physician - When: 1 - 2 days - Reason: Recheck today's complaints Discharge Instructions: - Discharge Summary Sheet cp - Migraine Headache cp - Musculoskeletal Pain cp Forms: - Medication Reconciliation Form cp - Thank You Letter cp - Antibiotic Education cp - Prescription Opioid Use cp Prescriptions: - Diclofenac Sodium 75 mg Oral Tablet Sustained Release - take 1 tablet by ORAL route 2 times per day; 30 tablet; Refills: 0, Product cp Selection Permitted Signatures: Dispatcher [facility] Katharine Humphrey RN RN bb Page, Corey, PA PA cp Esme Silverio RN RN hb Rees, Jessica, RN RN jh5 Corrections: (The following items were deleted from the chart) 00:40 06/20 23:46 Facial Bones W/ Con \T\ MPR+[id number].RAD.BRZ ordered. EDNH EDMS 06/21 02:23 02:23 GLUC 139; Reviewed. cp cp 06/22 01:05 06/20 23:55 ENT: External ear(s): are unremarkable, Ear canal(s): are normal, clear, cp TM's: bulging, is not appreciated, bilaterally, dullness, bilaterally, erythema, is not appreciated, bilaterally, Nose: is normal, Mouth: Lips: moist, Oral mucosa: moist, cp
--- NOTE | 2022-06-21 12:35 | RAD REPORT ---
EXAM DESCRIPTION: CT of the maxillofacial region. CLINICAL HISTORY: Jaw pain. COMPARISON: None. TECHNIQUE: CT of the maxillofacial region was performed without IV contrast. Axial, coronal, and sag ittal reconstructions were created and sent to PACS. This exam was performed according to our departmental dose-optimization program, which includes autom ated exposure control, adjustment of the mA and/or kV according to patient size and/or use of iterati ve reconstruction technique. FINDINGS: No acute osseous abnormality is identified. Lateral plate and screw fixation along the rig ht mandibular angle and ramus, with no associated abnormalities identified. No fluid collections or l ymphadenopathy. Temporomandibular joint alignment is maintained. Chronic dental disease. Suspected ch ronic mild irregularity of the left nasal bone. Incidentally noted a bone island in the right mandibl e. Mild mucosal thickening in the maxillary sinuses. The remaining visualized paranasal sinuses and m astoid air cells are patent. IMPRESSION: No acute abnormality identified. Electronically signed by: Carol Pike MD 06/21/2022 12:54 AM CDT Due to temporary technical issues with the PACS/Fluency reporting system, reports are being signed by the in house radiologists without review as a courtesy to insure prompt reporting. The interpreting radiologist is fully responsible for the content of the report.
--- NOTE | 2022-06-21 12:37 | RAD REPORT ---
EXAM DESCRIPTION: Noncontrast CT through the head CLINICAL HISTORY: Headache. TECHNIQUE: Noncontrast CT through the head was performed. Axial, coronal, and sagittal reconstructio ns were created and sent to PACS. This exam was performed according to our departmental dose-optimiza tion program which includes use of Automated Exposure Control, adjustment of the mA and/or kV accordi ng to patient size and/or use of iterative reconstruction technique. COMPARISON: None. FINDINGS: The brain parenchyma appears unremarkable. There is no intra-axial or extra-axial bleed se en. There is no mass or mass effect. The ventricles are unremarkable. The orbital contents appear unr emarkable. Mild mucosal thickening in the right maxillary sinus. The remaining visualized paranasal sinuses and mastoid air cells are patent. No acute fracture is identified. IMPRESSION: No acute intracranial abnormality identified. Electronically signed by: Carol Pike MD 06/21/2022 12:50 AM CDT Due to temporary technical issues with the PACS/Fluency reporting system, reports are being signed by the in house radiologists without review as a courtesy to insure prompt reporting. The interpreting radiologist is fully responsible for the content of the report.
[2022-06-23 04:08] VITALS: O2SAT 99
[2022-06-23 04:19] VITALS: BP 140/76; TEMP 98.4
== END 2022-06-21 02:46 | disposition home or self-care (01) ==
LOC: ER 20:52
DX: R51.9 Headache, unspecified (principal); R68.84 Jaw pain; Z88.0 Allergy status to penicillin; Z91.013 Allergy to seafood; Z91.048 Other nonmedicinal substance allergy status
CPT/HCPCS: 36415; 70450; 70486; 76377; 80048; 85025; 96361; 96374; 96375; 99284; J1100; J2765; J7030

== ENCOUNTER 2022-07-05 21:54 | Emergency (ER) | payer SELFPAY ==
--- OUTSIDE RECORDS SUMMARY | 2022-07-05 21:57 | XMS REPORT | Continuity of Care Document ---
:1975 Author Organization [facility] t Address [address] [place] [address] Dr. Baez. [address] [place] [address] Care Team Providers Name Role Phone PCP, PATIENT DOES NOT HAVE A Primary Care Physician Unavailmiguel Reynolds MD, Isaiah Cullen Attending Clinician [phone] ALBIN ROSAS Attending Clinician Unavailable Albin Purvis Attending Clinician Filomena GERMAN, Kaycee Attending Clinician CHER JIMÉNEZ Attending Clinician Unavailable [...] active active ity of problems problems [facility] Lumbago Lumbago Problem Active 2017-11-07 Me moria with with 03:47:18 l sciatica, sciatica, Herm marcus left side left side Active Problem 11/07/2017 Family Diagnostic Body mass Body mass Problem Active 2017-11-07 Memoria index index 03:47:18 l (BMI) (BMI) [place] 45.0-49.9, 45.0-49.9, adult adult Active Problem 11/07/2017 [...] Gris bermudez ins ty to Comments) 06-[address] adverse 00:00: since Hospita reaction 00 childhood l s to drug Shellfis Propensi Active Anaphylaxis Gris quinnodi h ty to 25 st Derived adverse 00:00: Hospita reaction 00 l s to drug SHELLFIS DRUG Active Unknown-Cmnt Un butch H INGREDI 8-16 ity of DERIVED 00:00: [place] 00 [facility] Branch Shellfis Propensi Active Unknown - Uni vers h ty to See comments 16 ity of Derived adverse 00:00: [place] reaction 00 Medical s Branch No Known DA Active U [facility] Allergie 3-05 [place] [facility] 00:00: [facility]a 00 [facility] No Known DA Active U [facility] Allergie 3-05 [place] [facility] 00:00: Regiona 00 [facility] NO KNOWN Drug Active Univers ALLERGIE Class ity of S [place] [facility] [place] Social History Social Habit Start Date Stop Date Quantity Comments Source Tobacco use and 2022-06-18 2022-06-18 Smokeless tobacco [facility] exposure 00:00:00 00:00:00 non-user Exposure to 2022-05-20 2022-05-30 Not sure University SARS-CoV-2 00:00:00 20:57:00 [facility] (event) Branch Sex Assigned At [birth year] [facility] 00:00:00 00:00:00 Smoking Status Start Date Stop Date Source Tobacco smoking consumption unknown [facility] Never smoked tobacco [facility] ospital Medications Ordered Filled Start Stop Current Ordering Indication Dosage Frequency Signature Comments Components Source Medication Medication Date Date Medication? Clinician (SIG) Name Name carBAMazepi 2021- Yes Take 1 Met hodi ne XR 9-25 10-[address] (TEGretol 00:00: 04:59 (200 mg [facility] XR) 200 MG 00 :00 total) by l 12 hr mouth tablet daily for 7 days, THEN 1 tablet (200 mg total) every other day for 7 days. carBAMazepi 2021- No Take 1 Met hodi ne XR 9-25 10-[address] (TEGretol 00:00: 04:59 (200 mg [facility] XR) 200 MG 00 :00 total) by l 12 hr mouth tablet daily for 7 days, THEN 1 tablet (200 mg total) every other day for 7 days. diclofenac 2021- Yes 50mg Q.5D Take 1 Meth willi (VOLTAREN) 9-25 10-03 tablet (50 st 50 MG EC 00:00: 04:59 mg total) Hos byron tablet 00 :00 by mouth 2 l (two) times a day as needed (for pain and swelling. take w/ food) for up to 7 days. diclofenac 2021- No 50mg Q.5D Take 1 Meth willi (VOLTAREN) 9-25 10-03 tablet (50 st 50 MG EC 00:00: 04:59 mg total) Hos byron tablet 00 :00 by mouth 2 l (two) times a day as needed (for pain and swelling. take w/ food) for up to 7 days. lidocaine 2021- Yes 4mL Q.[id number] Apply 4 mL Methodi HCL 06-[id number] (lidocaine) 00:00: 04:59 3D 3 (three) Hospita 2 % 00 :00 times a l solution day for 3 days. Apply to cottonball and place it by toothache lidocaine 2021- No 4mL Q.[id number] Apply 4 mL Methodi HCL 06-[id number] (lidocaine) 00:00: 04:59 3D 3 [...] 1 at 2130, tablet CHRISTINA butalbital- Yes [id number] 1{tbl} Take 1 Univers acetaminoph - tablet by ity of en-caff 00:00: mouth [place] 50-325-40 00 every 6 Medical mg tablet (six) Branch hours as needed for Pain (scale 4-6) or Pain (scale 7-10). ondansetron 2021- Yes 4mg Q8H Take 1 Met hodi ODT 8-27 tablet (4 st (ZOFRAN-ODT 00:00: 04:59 mg [...] vomiting for up to 30 days. ondansetron 2021-0 2021- Yes 4mg Q8H Take 1 Met hodi ODT 8-20 06- tablet (4 st (ZOFRAN-ODT 00:00: 04:59 mg total) Hospita ) 4 MG 00 :00 by mouth l disintegrat every 8 ing tablet (eight) hours as needed for nausea or vomiting for up to 30 days. ondansetron 2021-0 202- No 4mg Q8H Take 1 Met hodi ODT 8-06-20 tablet (4 st (ZOFRAN-ODT 00:00: 04:59 mg total) Hospita ) 4 MG 00 :00 by mouth l disintegrat every 8 ing tablet (eight) hours as needed for nausea or vomiting for up to 30 days. ondansetron 2021-0 202- No 4mg Q8H Take 1 Met hodi ODT 05-20 tablet (4 st (ZOFRAN-ODT 00:00: 04:59 mg total) Hospita ) 4 MG 00 :00 by mouth l disintegrat every 8 ing tablet (eight) hours as needed for nausea or vomiting for up to 30 days. LISINOPRIL 0 Yes Take by [facility] [place] [facility] ORAL 8-16 mouth. ity of 21:45: [address] Branch HYDROcodone 2021-0 Yes 1{tbl} Take 1 Un butch -acetaminop 8-16 tablet by ity of hen (NORCO) 21:45: mouth [place] 10-325 mg 20 every 6 Medical tablet (six) Branch hours as needed. LISINOPRIL 2021-0 Yes Take by [facility] [place] [facility] ORAL 8-16 mouth. ity of 21:45: [address] Branch HYDROcodone 2021-0 Yes 1{tbl} Take 1 Un butch -acetaminop 8-16 tablet by ity of hen (NORCO) 21:45: mouth [place] 10-325 mg 20 every 6 Medical tablet (six) Branch hours as needed. ketorolac 2021-0 2021- Yes 30mg 30 mg, Unive rs (TORADOL) 04-23 Intramuscu ity of injection 21:15: 09:14 lar, ONCE, [place] 30 mg 00 :00 1 dose, On Medical Sun Branch 04/23/22 at 1615, Routine metoclopram 2021-0 2021- No 10mg 10 mg, Uni vers darren HCl 04-23 Intramuscu ity o f (REGLAN) 20:15: 20:45 [place] injection 00 :00 1 dose, On Medi shannan 10 mg Sun Branch 04/23/22 at 1515, CHRISTINA Hydrocodone 2017-0 Yes Toussaint 1 tablet Memoria -Acetaminop 2-14 Irfan as needed l hen 03:47: [place] Carisoprodo 2018-0 Yes Toussaint 1 tablet Memoria l 2-14 Irfan as needed l 03:47: [place] Meloxicam 2017-0 Yes Toussaint 1 tablet Memoria 2-14 Irfan l 03:47: [place] Hydrocodone 2017-0 Yes Toussaint 1 tablet Memoria -Acetaminop 2-14 Irfan as needed l hen 03:47: [place] Carisoprodo 2018-0 Yes Toussaint 1 tablet Memoria [...] Lukes 00:00: Memoria 00 l (LUF/LI V/SA) [place] 0 Yes Toussaint 1 tablet Enrique elkin 1-15 Irfan as needed l 00:00: [place] 2017-0 Yes Toussaint 1 tablet Memor ia 1-15 Irfan as needed l 00:00: [place] 00 Meloxicam 2018-0 Yes Toussaint 1 tablet Memoria 1-15 Irfan l 00:00: [place] 00 [place] 2018-0 Yes Toussaint 1 tablet Enrique elkin [...] Name Observation Time Observation Value Comments Source Heart rate 2022-05-31 01:59:00 78 /min [facility] Body temperature 2022-05-31 01:59:00 36.94 Amisha [facility] Respiratory rate 2022-05-31 01:59:00 18 /min [facility] Body height 2022-05-31 01:59:00 165.1 cm [facility] Body weight 2022-05-31 01:59:00 127.007 kg [facility] BMI 2022-05-31 01:59:00 46.59 kg/m2 [facility] Oxygen saturation in 2022-05-31 01:59:00 95 /min [facility] Arterial blood by [facility] Pulse oximetry [place] Systolic blood 2022-05-31 01:59:00 128 mm[Hg] Univer juan pabloy of pressure [facility] Diastolic blood 2022-05-31 01:59:00 81 mm[Hg] Unive rsity of pressure [place] [facility] Systolic blood 2022-05-10 02:39:00 148 mm[Hg] Univer sity of pressure [place] [facility] Diastolic blood 2022-05-10 02:39:00 84 mm[Hg] Unive rsity of pressure [place] [facility] Heart rate 2022-05-10 02:39:00 70 /min [facility] [place] [facility] Body temperature 2022-05-10 02:39:00 37.56 Amisha Univ [facility] [place] [facility] Respiratory rate 2022-05-10 02:39:00 18 /min Univ [facility] [place] [facility] Body height 2022-05-10 02:39:00 162.6 cm [facility] [place] [facility] Body weight 2022-05-10 02:39:00 127.007 kg [facility] [place] [facility] BMI 2022-05-10 02:39:00 48.06 kg/m2 [facility] [place] [facility] Oxygen saturation in 2022-05-10 02:39:00 95 /min University of Arterial blood by [place] [employer] shannan Pulse oximetry Branch Body weight 2022-04-23 20:11:00 133.131 kg [facility] [place] [facility] BMI 2022-04-23 20:11:00 50.38 kg/m2 [facility] [place] [facility] Systolic blood 2022-04-23 20:09:00 140 mm[Hg] Univer sity of pressure [place] [facility] Diastolic blood 2022-04-23 20:09:00 81 mm[Hg] Unive rsity of pressure [place] [facility] Heart rate 2022-04-23 20:09:00 66 /min [facility] [place] [facility] Body temperature 2022-04-23 20:09:00 36.72 Amisha [facility] [place] [facility] Respiratory rate 2022-04-23 20:09:00 17 /min Univ [facility] [place] [facility] Body height 2022-04-23 20:09:00 162.6 cm [facility] [place] [facility] Oxygen saturation in 2022-04-23 20:09:00 97 /min University of Arterial blood by [employer] shannan Pulse oximetry Branch Systolic blood 2022-06-18 15:20:24 157 mm[Hg] [facility] pressure Diastolic blood 2022-06-18 15:20:24 74 mm[Hg] [facility] pressure Heart rate 2022-06-18 15:20:24 53 /min [facility] Body temperature 2022-06-18 15:20:24 36.78 Amisha [facility] Respiratory rate 2022-06-18 15:20:24 16 /min [facility] Oxygen saturation in 2022-06-18 15:20:24 97 /min [facility] Arterial blood by Pulse oximetry Body height 2022-06-18 12:48:00 162.6 cm [facility] Body weight 2022-06-18 12:48:00 127.007 kg [facility] BMI 2022-06-18 12:48:00 48.06 kg/m2 [facility] Systolic blood 2022-05-21 00:33:00 132 mm[Hg] [facility] pressure Diastolic blood 2022-05-21 00:33:00 64 mm[Hg] [facility] pressure Heart rate 2022-05-21 00:33:00 64 /min [facility] Oxygen saturation in 2022-05-21 00:33:00 98 /min [facility] Arterial blood by Pulse oximetry Body temperature 2022-05-20 23:53:12 36.17 Amisha [facility] Respiratory rate 2022-05-20 23:53:12 18 /min [facility] Body height 2022-05-20 23:52:00 162.6 cm [facility] Body weight 2022-05-20 23:52:00 127.007 kg [facility] BMI 2022-05-20 23:52:00 48.06 kg/m2 [facility] Weight 2017-10-25 15:00:00 [facility] [place] Height 2017-10-25 15:00:00 [facility] [place] Temperature Oral (F) 2017-10-25 15:00:00 97.8 F [facility] [place] Heart Rate 2017-10-25 15:00:00 [facility] [place] Diastolic (mm Hg) 2017-10-25 15:00:00 Mem orial [place] Systolic (mm Hg) 2017-10-25 15:00:00 Enrique rial [place] Body Temperature 2017-10-21 12:00:00 97.5 F [facility] (LUF/BLANCA/SA) Respiratory Rate 2017-10-21 12:00:00 20 /min [facility] (F/BLANCA/SA) O2% BldC Oximetry 2017-10-21 12:00:00 98 % [facility] (LUF/BLANCA/SA) BP Systolic 2017-10-21 12:00:00 132 mm[Hg] [facility] (F/BLANCA/SA) BP Diastolic 2017-10-21 12:00:00 78 mm[Hg] [facility] (LUF/BLANCA/SA) Height 2017-10-21 12:00:00 64 in [facility] (LUF/BLANCA/SA) Weight Measured 2017-10-21 12:00:00 282.19 lbs [facility] (LUF/BLANCA/SA) BMI (Body Mass 2017-10-21 12:00:00 48.7 [facility]) [facility] (F/BLANCA/SA) Weight 2017-10-08 15:45:00 [facility] [place] Height 2017-10-08 15:45:00 [facility] [place] Temperature Oral (F) 2017-10-08 15:45:[address] [facility] [place] Heart Rate 2017-10-08 15:45:00 [facility] [place] Diastolic (mm Hg) 2017-10-08 15:45:00 Mem orial [place] Systolic (mm Hg) 2017-10-08 15:45:00 Enrique rial [place] Procedures Procedure Date / Time Performing Clinician Source Performed CT MAXILLOFACIAL WO 2022-06-18 14:48:32 Frida Patton [facility] CONTRAST CONSENT/REFUSAL FOR 2022-05-31 01:55:15 Doctor Unassigned, [facility] CT CERVICAL SPINE WO 2022-05-21 01:24:51 Kaycee Butt [facility] CONTRAST CT HEAD WO CONTRAST 2022-05-21 01:15:40 Kaycee Butt [facility] POC GLUCOSE 2022-05-21 00:33:00 Kaycee Butt [facility] NOTICE OF PRIVACY 2022-05-10 02:37:04 Doctor Unassigned, No [facility] PRACTICES Name Medical Branch CONSENT/REFUSAL FOR 2022-05-10 02:35:02 Doctor Unassigned, No [facility] [place] DIAGNOS[facility] TREATMENT Name Medical Branch CONSENT/REFUSAL FOR 2022-04-23 20:00:28 Doctor Unassigned, No [facility] [place] DIAGNOSIS AND TREATMENT Name Medical Branch Plan of Care Planned Activity Planned Date Details Comments Source Future Scheduled 2022-06-18 [facility] 09:25:33 VACCINES (1 of 3 - 3-dose series) [code = HEPATITIS B VACCINES (1 of 3 - 3-dose series)] Future Scheduled 2022-06-18 [facility]atitis C [facility] 09:25:33 screening (procedure) [code = 325457081] Future Scheduled 2022-06-18 COVID-19 VACCINE (3 [facility] Test 09:25:33 - Booster for Pfizer series) [code = COVID-19 VACCINE (3 - Booster for Pfizer series)] Future Scheduled 2022-06-18 INFLUENZA VACCINE [facility] 09:25:33 [code = INFLUENZA VACCINE] Future Scheduled 2022-06-18 [facility] 09:25:33 VACCINES (1 of 3 - 3-dose series) [code = HEPATITIS B VACCINES (1 of 3 - 3-dose series)] Future Scheduled 2022-06-18 [facility] 09:25:33 screening (procedure) [code = 963709274] Future Scheduled 2022-06-18 COVID-19 VACCINE (3 [facility] Test 09:25:33 - Booster for Pfizer series) [code = COVID-19 VACCINE (3 - Booster for Pfizer series)] Future Scheduled 2022-06-18 INFLUENZA VACCINE [facility] Test 09:25:33 [code = INFLUENZA VACCINE] Future Scheduled 2022-06-09 [facility]IS [facility] 18:36:38 VACCINES (1 of 3 - 3-dose series) [code = HEPATITIS B VACCINES (1 of 3 - 3-dose series)] Future Scheduled 2022-06-09 [facility] 18:36:38 screening (procedure) [code = 809783281] Future Scheduled 2022-06-09 COVID-19 VACCINE (3 [facility] Test 18:36:38 - Booster for Pfizer series) [code = COVID-19 VACCINE (3 - Booster for Pfizer series)] Future Scheduled 2022-06-09 INFLUENZA VACCINE [facility] Test 18:36:38 [code = INFLUENZA VACCINE] Future Scheduled 2022-05-25 [facility] 07:52:22 VACCINES (1 of 3 - 3-dose series) [code = HEPATITIS B VACCINES (1 of 3 - 3-dose series)] Future Scheduled 2022-05-25 [facility] 07:52:22 screening (procedure) [code = 514778197] Future Scheduled 2022-05-25 COVID-19 VACCINE (3 [facility] Test 07:52:22 - Booster for Pfizer series) [code = COVID-19 VACCINE (3 - Booster for Pfizer series)] Future Scheduled 2022-05-25 INFLUENZA VACCINE [facility] Test 07:52:22 [code = INFLUENZA VACCINE] Future Scheduled 2022-05-25 [facility] 07:52:22 VACCINES (1 of 3 - 3-dose series) [code = HEPATITIS B VACCINES (1 of 3 - 3-dose series)] Future Scheduled 2022-05-25 [facility] 07:52:22 screening (procedure) [code = 880438897] Future Scheduled 2022-05-25 COVID-19 [facility]ACCINE ([facility] 07:52:22 - Booster for Pfizer series) [code = COVID-19 VACCINE (3 - Booster for Pfizer series)] Future Scheduled 2022-05-25 INFLUENZA VACCINE [facility] Test 07:52:22 [code = INFLUENZA VACCINE] Encounters Start End Encounter Admission Attending Care Care Encounter Source Date/Time Date/Time Type Type Clinicians Facility Department ID 2022-07-05 Outpatient [id number] Memoria 21:55:55 [id number]-A75 3T0-84X4- A l -R82H-3K5 A-3Q363FDO1 [id number] [place] [id number] F6F BA1F6F 2022-06-20 Outpatient [id number] FEAA B0FE-B Memoria 20:55:03 V16B-4SCW 9E-4FBC-9E6 39E-4FBC- 9 l -4V45-K07 [id number]-E66MOD669 G12-E27GTG [place] [id number] 7B9 [id number] 2022-06-18 Outpatient [id number] 41FC-3 Memoria 07:44:31 1G06-6RUM 17-4EED-9D8 X57-3KLV- 9 l -4I88-M5N 1-R4SZ322B4 M29-Z4IA21 [place] [id number] A09 2A0A09 2022-06-14 Outpatient [id number] 73A9-D Memoria 22:44:21 U89J-4O55 0A-6T15-437 90A-4A19- 9 l -9064-22B 4-88T280E3D 064-12W961 [place] [id number] 120 [id number] 2022-06-08 Outpatient [id number] 4BD7-F Memoria 21:22:44 E65M-9KB4 4B-2KC0-086 44B-4BC4- 8 l -819B-E8C B-[id number] [id number]-Z8R102 [place] [id number] C63 [id number] 2022-06-03 Outpatient [id number]- [id number] ABCB 93A3-4 Memoria 01:33:52 4565-43DE 65-43DE-92E 565-43DE- 9 l -70W2-217 7-069UH10IE 8K9-589MU0 [place] [id number] 217 [id number] 2022-05-30 Outpatient [id number] [id number] Memoria 20:55:52 3Q78-059Q 39-438E-9B8 G14-869E- 9 l -2P88-9XO 0-6ZMC6V6VG H65-6DIC4D [place] G0I5SHX34 F41 4BEF41 2022-05-20 Outpatient [id number] A21D-1 Memoria 18:55:15 1FAA-4CF3 AA-3AG7-41Z FAA-4CF3- 8 l -80ED-A77 D-[id number] 0ED-A77A25 [facility] [id number] 9302-09-27 Outpatient [id number] [id number] Memoria 14:21:52 26R3-4ZOE F0-4CEA-948 5F2-7DMG- 9 l -9486-B77 6-M71EGD4S0 486-B77BBD [facility] [id number] 4C4 1C14C4 2021-06-20 Outpatient [id number] BE16-8 Memoria 14:21:45 8434-49AE 34-49AE-95B 434-49AE- 9 l -95BD-57D D-38KV86Q5D 5BD-57DA06 [facility] [id number] 032 G1F721 2021-05-30 Outpatient [id number] [id number] Memoria 15:44:20 DAF5-4596 F5-4596-BFE AF5-4596- B l -BFE1-51A 1-33WLM96BJ FE1-51ACA1 [facility]avo CI97CU4GJ 1BA 9CA1BA 2020-01-20 Inpatient [facility] [id number] [facility] 15:25:00 21 [facility] 2019-12-16 Inpatient [facility] IIRSH [id number] [facility] 17:49:00 32 [facility] 2019-12-12 Inpatient [facility] [id number] [facility] 08:32:00 83 [facility] 2019-11-27 Inpatient [facility] IR[facility] [id number] [facility] 07:33:00 06 [facility] 2022-06-18 2022-06-18 Emergency Sravanthi 1.2.840.1 [id number] Methodi 07:52:00 10:32:00 Isaiah 63959.1.1 142 [facility] 3.430.2.7 [facility]osp [facility] .3.002208 l .8 2022-06-18 2022-06-18 Emergency [facility] [id number] [place] [address] 00:00:00 00:00:00 ISAIAH Dee Method i st 2022-05-30 2022-05-30 Emergency X JASBIR [facility] ERT [id number] Univers 21:02:00 21:53:00 ALBIN ibrahim of [facility] 2022-05-30 2022-05-30 Emergency [facility] 1.2.214.314 [id number] [facility] 21:02:00 21:53:00 Albin RUSSO 350.1.13.10 i ty [facility] 4.2.7.2.686 [facility] [id number] [place] [address] Branch 2022-05-20 2022-05-20 Emergency Bárbara 1.2.840.1 [id number] Methodi 19:29:00 21:04:[address] 3.430.2.7 Hospit a .3.587685 l .8 2022-05-20 2022-05-20 Emergency Darci-Kings 1.2.840.1 [id number] Methodi 19:29:00 21:04:[address] 3.430.2.7 Hospit a .3.991475 l .8 2022-05-20 2022-05-20 Travel 1.2.840.1 1.2.932.507 [id number] Methodi 00:00:00 00:00:[address] 3.430.2.7 0.2.7.3.698 Ho spita .3.743305 084.8 l .8 2022-05-20 2022-05-20 Travel 1.2.840.1 1.2.696.897 7139 [id number] Methodi 00:00:00 00:00:[address] 3.430.2.7 0.2.7.3.698 Ho spita .3.417007 084.8 l .8 2022-05-09 2022-05-09 Emergency X JESSY [facility] ERT [id number] Univers 21:45:00 21:46:00 CHER ibrahim [facility] 2022-05-09 2022-05-09 Emergency [facility] 1.2.840.114 [id number] Univers 21:45:00 21:46:00 Cher RUSSO 350.1.13.10 ity [facility] 4.2.7.2.686 [facility] [id number] [address] 2022-04-23 2022-04-23 Emergency [facility] [id number] Univers 15:11:00 15:52:00 BO fu [facility] 2022-04-23 2022-04-23 [facility] 1.2.035.142 [id number] Univers 15:11:00 15:52:00 Bo RUSSO 350.1.13.10 ity [facility] 4.2.7.2.686 [facility] [id number] [address] 2021-09-14 2021-09-14 Outpatient [facility] 117 942 [place] 02:13:00 02:[place] [id number] [facility] 2021-09-08 2021-09-08 Outpatient [facility] 117 942 [place] 02:19:00 02:19:[place] [address] [facility] 2017-11-01 2017-11-01 Outpatient Family Family [id number] eClinic 10:47:00 10:47:00 [facility] Clinic 2017-10-25 2017-10-25 Outpatient Family Family [id number] eClinic 09:00:00 09:00:00 [facility] Clinic 2017-10-21 2017-10-21 [facility] [id number] 11:51:00 14:48:00 THORACIC BETHANY Simental SPINE N, [address], (LUF/[place] V/[place] [address] 2017-10-21 2017-10-21 [facility] [id number] 11:51:00 14:48:00 THORACIC BETHANY KING SPINE N 2017-10-08 2017-10-08 Outpatient Family Family [id number] eClinic 09:45:00 09:45:00 [facility] Clinic Results Test Description Test Time Test Comments Results Result Comments Source POC glucose 2022-05-21 00:34:00 Test Item Value Reference Range Interpretation Comme nts POC glucose (test code = 91376-5) 217 mg/dL 65-100 H Helicopter Pilot Instructor Name: Zach Avery ID: [id number] Lab Interpretation (test code = Abnormal 03965-6) [facility] [id number] 00:34:00 Test Item Value Reference Range Interpretation Comments POC glucose (test code = 217 mg/dL 65-100 H Ope rator Name: Zach 24121-6) BinosDevice ID: [id number] Lab Interpretation (test Abnormal code = 00161-0) [facility]2022-08-28 00:34:00 Test Item Value Reference Range Interpretation Comments POC glucose (test code = 217 mg/dL 65-100 H Ope rator Name: Zach 85386-5) Binos[employer] ID: [id number] Lab Interpretation (test Abnormal code = 66587-1) [facility] [id number] 00:34:00 Test Item Value Reference Range Interpretation Comments POC glucose (test code = 217 mg/dL 65-100 H Ope rator Name: Zach 52773-5) BinosDevice ID: [id number] Lab Interpretation (test Abnormal code = 22919-9) [facility] [id number] 00:34:00 Test Item Value Reference Range Interpretation Comments POC glucose (test code = 217 mg/dL 65-100 H Ope rator Name: Zach 90262-2) BinosDevice ID: [id number] Lab Interpretation (test Abnormal code = 61120-2) [facility] CT HEAD/BRAIN W/O POWN3222-27-23 18:19:00 Patient Name: VIMAL BARROSO Unit No: [id number] EXAMS: CPT CODE: [id number] CT HEAD/BRAIN W/O CONT 77246 CLINICAL INFORMATION: Moderate frontal headaches. Coughing. Dictation [...] (1818) KirtAGV LORETA Lopez NAME: VIMAL BARROSO [address] [place] [address] PHYS: Germania Isaacs [place] [address] : 1975 AGE: 44 SEX: M LOC: B.ERS PHONE #: [phone] EXAM DATE: 12/16/2019 STATUS: PREER FAX #: [phone] RAD #: D/C DT PAGE 1 Signed Report Patient Name: VIMAL BARROSO Unit No: [id number] EXAMS: CPT CODE: [id number] CT HEAD/BRAIN W/O CONT 11222 (Continued) Orig Print D/T: S: 12/16/2019 (1821) LORTEA Lopez NAME: VIMAL BARROSO [address] [place] [address] PHYS: KELLY Vargas Germania Engel [place] [address] : 1975 AGE: 44 SEX: M LOC: B.ERS PHONE #: [phone] EXAM DATE: 12/16/2019 STATUS: PRE ER FAX #: [phone] RAD #: D/C DT PAGE 2 Signed Report- XR CHEST 2 [id number] 09:11:00 FAX: Germania Engel NP [phone] [place]: St: REG Patient Name: VIMAL BARROSO Unit No: [id number] EXAMS: CPT CODE: [id number] XR CHEST 2 V [id number] - XR CHEST 2 V LOCATION: T18 [...] 12/12/2019 (913) LORETA Lopez NAME: VIMAL BARROSO [address] [place] [address] PHYS: [place] Isaacs [place] [address] : 1975 AGE: 44 SEX: M LOC: [facility] PHONE #: [phone] EXAM DATE: 12/12/2019 STATUS: REG ER FAX #: [phone] RAD NO: DC Dt: PAGE 1 Signed ReportSPINE LUMBAR [id number] 13:37:[address] [id number] IMAGING REPORTPatient Name: VIMAL BARROSODate of Service: [id number]: 41 Sex: M Order #: [id number] Room: [facility]: 1975 X-Ray Number: [id number] Record Number: [id number] Hospital Number: [id number] Physician: Agatha CROW Physician: RUBY TREVIÑO, 04/08/2017 [...]
[2022-07-05] MEDS ORDERED: DIPHENHYDRAMINE 50 MG/ML VIAL ONE (23:17)
[2022-07-05] MEDS ORDERED: KETOROLAC 30 MG/ML INJ ONE (23:17)
[2022-07-05] MEDS ORDERED: ONDANSETRON 4 MG/2 ML VIAL ONE (23:17)
[2022-07-05] MEDS ORDERED: NA CHLORIDE 0.9% 1,000 ML ONE (23:18)
[2022-07-05 23:20] LABS: Absolute Lymphocytes (CBC) 1.8 K/uL (0.7-4.9); Hematocrit 37.7 % (39.6-49.0); Lymphocytes % 31.9 % (15.3-44.8); MCV 90.2 fL (80-100); RBC Red Blood Cell Count 4.18 M/uL (4.33-5.43)
[2022-07-05 23:32] LABS: Potassium 3.1 mmol/L (3.5-5.1)
--- NOTE | 2022-07-05 23:51 | ER ---
Nurse's Notes [facility] Name: Ruben Alamo Age: 46 yrs Sex: Male : 1975 Arrival Date: 07/05/2022 Time: 21:57 Bed 28 Private MD: Diagnosis: Headache;Hypokalemia Presentation: 07/05 22:18 Chief complaint: Patient states: Pt reports right-sided headache that radiates from the kb3 top of his head down into the right side of his face, FALLON began 3-4 hrs ago, denies N/V. Pt reports he had multiple teeth pulled over the last month and he thinks they might be infected. Coronavirus screen: Vaccine status: Patient reports receiving the 2nd dose of the covid vaccine. Client denies travel out of the [place] in the last 14 days. Ebola Screen: Patient negative for fever greater than or equal to 101.5 degrees Fahrenheit, and additional compatible Ebola Virus Disease symptoms Patient denies exposure to infectious person. Patient denies travel to an Ebola-affected area in the 21 days before illness onset. No symptoms or risks identified at this time. Initial Sepsis Screen: Does the patient meet any 2 criteria? No. Patient's initial sepsis screen is negative. Does the patient have a suspected source of infection? No. Patient's initial sepsis screen is negative. Risk Assessment: Do you want to hurt yourself or someone else? Patient reports no desire to harm self or others. Onset of symptoms was July 05, 2022 at 19:00. 22:18 Method Of Arrival: Ambulatory kb3 22:18 Acuity: LIZBETH 3 kb3 Triage Assessment: 22:21 Headache History: Denies prior headaches. General: Appears in no apparent distress. kb3 Behavior is calm, cooperative. Pain: Complains of pain in top of head, right cheek, right ear, right caodaism and right jaw Pain does not radiate. Pain currently is 8 out of 10 on a pain scale. Pain began 3 hours ago. Also complains of no other associated symptoms. Neuro: Level of Consciousness is awake, alert, Oriented to person, place, time, Tooth Polisher are equal bilaterally Moves all extremities. Gait is steady, Reports headache in right. Historical: - Allergies: 22:21 Iodine; kb3 22:21 PENICILLINS; kb3 22:21 SHELLFISH; kb3 - Home Meds: 22:21 hydrocodone-acetaminophen 10-325 mg/15 mL(15 mL) Oral soln 15 mL every 6 hours [Active];kb3 - PMHx: 22:21 Chronic pain; kb3 - PSHx: 22:21 facial reconstruction; Spinal surgery; kb3 - Immunization history:: Adult Immunizations up to date, Client reports receiving the 2nd dose of the Covid vaccine, Last tetanus immunization: up to date. - Social history:: Smoking status: Patient denies any tobacco usage or history of. Screenin:53 Abuse screen: Denies threats or abuse. Denies injuries from another. Nutritional lg3 screening: No deficits noted. Tuberculosis screening: No symptoms or risk factors identified. Fall Risk None identified. Assessment: 22:53 General: Appears in no apparent distress. comfortable, Behavior is calm, cooperative. lg3 Pain: Complains of pain in head Pain radiates to right cheek. Neuro: No deficits noted. Level of Consciousness is awake, alert, obeys commands, Oriented to person, place, time, situation. Cardiovascular: No deficits noted. Denies chest pain, shortness of breath, Capillary refill < 3 seconds Clubbing of nail beds is absent JVD is absent Patient's skin is warm and dry. Respiratory: No deficits noted. Airway is patent Trachea midline Respiratory effort is even, unlabored, Respiratory pattern is regular, symmetrical, Breath sounds are clear bilaterally. GI: No deficits noted. No signs and/or symptoms were reported involving the gastrointestinal system. Abdomen is round non-distended, obese, Bowel sounds present X 4 quads. Abd is soft and non tender X 4 quads. : No deficits noted. No signs and/or symptoms were reported regarding the genitourinary system. EENT: No deficits noted. No signs and/or symptoms were reported regarding the EENT system. Oral mucosa is moist. Derm: No deficits noted. No signs and/or symptoms reported regarding the dermatologic system. Skin is intact, is healthy with good turgor, Skin is dry, Skin is normal, Skin temperature is warm. Musculoskeletal: No deficits noted. No signs and/or symptoms reported regarding the musculoskeletal system. Circulation, motion, and sensation intact. Range of motion: intact in all extremities. 23:47 Reassessment: Patient appears in no apparent distress at this time. No changes from lg3 previously documented assessment. Patient and/or family updated on plan of care and expected duration. Pain level reassessed. Patient is alert, oriented x 3, equal unlabored respirations, skin warm/dry/pink. General: pt quietly resting in bed with eyes closed. . 07/06 00:25 Reassessment: Patient appears in no apparent distress at this time. No changes from lg3 previously documented assessment. Patient and/or family updated on plan of care and expected duration. Pain level reassessed. Patient is alert, oriented x 3, equal unlabored respirations, skin warm/dry/pink. Patient states feeling better. Patient states symptoms have improved. Vital Signs: 07/05 22:18 BP 151 / 80; Pulse 58; Resp 18; Pulse Ox 95% ; Weight 127.01 kg; Height 5 ft. 4 in. kb3 (162.56 cm); Pain 8/10; 07/06 00:25 BP 138 / 84; Pulse 66; Resp 17 S; Pulse Ox 97% on R/A; lg3 07/05 22:18 Body Mass Index 48.06 (127.01 kg, 162.56 cm) kb3 [place] Coma Score: 07/05 23:49 Eye Response: spontaneous(4). Verbal Response: oriented(5). Motor Response: obeys kb commands(6). Total: 15. ED Course: 21:57 Patient arrived in ED. dt4 22:21 Triage completed. kb3 22:21 Arm band placed on right wrist. kb3 22:37 Suzy Zimmerman RN is Primary Nurse. lg3 22:46 Carisa Trinidad FNP-C [facility]. kb 22:46 Mynor White MD is Attending Physician. kb 22:53 Patient has correct armband on for positive identification. Placed in gown. Bed in low lg3 position. Call light in reach. Side rails up X 1. Client placed on continuous cardiac and pulse oximetry monitoring. NIBP monitoring applied. vehicle monitor technician on. Door closed. Noise minimized. Warm blanket given. 23:10 Inserted saline lock: 22 gauge in left wrist, using aseptic technique. Blood collected. lg3 23:10 Basic Metabolic Panel Sent. lg3 23:10 CBC with Diff Sent. lg3 07/06 00:25 No provider procedures requiring assistance completed. IV discontinued, intact, lg3 bleeding controlled, No redness/swelling at site. Pressure dressing applied. Administered Medications: 07/05 23:24 Drug: Benadryl (diphenhydrAMINE) 12.5 mg Route: IVP; Site: left wrist; lg3 07/06 00:10 Follow up: Response: No adverse reaction; Marked relief of symptoms lg3 07/05 23:25 Drug: NS 0.9% 1000 ml Route: IV; Rate: 1 bolus; Site: left wrist; lg3 07/06 00:26 Follow up: Response: No adverse reaction; IV Status: Completed infusion; IV Intake: lg3 1000ml 07/05 23:25 Drug: Ketorolac 15 mg Route: IVP; Site: left wrist; lg3 07/06 00:09 Follow up: Response: No adverse reaction; Marked relief of symptoms lg3 07/05 23:25 Drug: Zofran (Ondansetron) 4 mg Route: IVP; Site: left wrist; lg3 07/06 00:09 Follow up: Response: No adverse reaction; Marked relief of symptoms lg3 00:24 Drug: Potassium Chloride 40 mEq Route: PO; lg3 00:24 Follow up: Response: No adverse reaction lg3 Medication: 00:25 VIS not applicable for this client. lg3 Intake: 00:26 IV: 1000ml; Total: 1000ml. lg3 Outcome: 07/05 23:49 Discharge ordered by . hamzah 07/06 00:25 Discharged to home ambulatory. lg3 Condition: stable Discharge instructions given to patient, Instructed on discharge instructions, follow up and referral plans. Demonstrated understanding of instructions, follow-up care. 00:26 Patient left the ED. lg3 Signatures: Carisa Trinidad, MISHAC JACQUE-Suzy Pak, RN RN lg3 Alyssa Ford, RN RN kb3 Denisha Peter dt4 Corrections: (The following items were deleted from the chart) 07/05 22: 22:18 Chief complaint: Patient states: Pt reports right-sided headache that radiates kb3 from the top of his head down into the right side of his face, FALLON began 3-4 hrs ago, denies N/V kb3
--- NOTE | 2022-07-05 23:51 | EDPHYS ---
Physician Documentation [facility] Name: Ruben Alamo Age: 46 yrs Sex: Male : 1975 Arrival Date: 07/05/2022 Time: 21:57 Bed 28 Private MD: [facility] Physician Mynor White HPI: 07/05 22:59 This 46 yrs old Black Male presents to ER via Ambulatory with complaints of Headache. kb 22:59 The patient complains of pain to the right frontal area. The patient describes the kb headache as aching. Onset: The symptoms/episode began/occurred 5 hour(s) ago. Associated signs and symptoms: The patient has no apparent associated signs or symptoms. Severity of symptoms: At its worst the pain was mild, moderate, in the emergency department the pain is unchanged. Headache History: The patient has had previous headaches and this one is different than previous episodes. The symptoms are alleviated by nothing. the symptoms are aggravated by nothing. The patient has not experienced similar symptoms in the past. The patient has not recently seen a physician. 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 States the pain radiates to right side of face. Denies n/v, visual changes, fever, or any other symptoms. Historical: - Allergies: 22:21 Iodine; kb3 22:21 PENICILLINS; kb3 22:21 SHELLFISH; kb3 - Home Meds: 22:21 hydrocodone-acetaminophen 10-325 mg/15 mL(15 mL) Oral soln 15 mL every 6 hours [Active];kb3 - PMHx: 22:21 Chronic pain; kb3 - PSHx: 22:21 facial reconstruction; Spinal surgery; kb3 - Immunization history:: Adult Immunizations up to date, Client reports receiving the 2nd dose of the Covid vaccine, Last tetanus immunization: up to date. - Social history:: Smoking status: Patient denies any tobacco usage or history of. ROS: 22:58 Constitutional: Negative for fever, chills, and weight loss. kb 22:58 Neuro: Positive for headache. 22:58 All other systems are negative. Exam: 22:58 Constitutional: This is a well developed, well nourished patient who is awake, alert, kb and in no acute distress. Head/Face: Normocephalic, atraumatic. ENT: Moist Mucous membranes Cardiovascular: Regular rate and rhythm with a normal S1 and S2. No gallops, murmurs, or rubs. No pulse deficits. Respiratory: Respirations even and unlabored. No increased work of breathing. Talking in full sentences Skin: Warm, dry with normal turgor. Normal color. MS/ Extremity: Pulses equal, no cyanosis. Neurovascular intact. Full, normal range of motion. Neuro: Awake and alert, GCS 15, oriented to person, place, time, and situation. Moves all extremities. Normal gait. Psych: Awake, alert, with orientation to person, place and time. Behavior, mood, and affect are within normal limits. Vital Signs: 22:18 BP 151 / 80; Pulse 58; Resp 18; Pulse Ox 95% ; Weight 127.01 kg; Height 5 ft. 4 in. kb3 (162.56 cm); Pain 05/03; 07/06 00:25 BP 138 / 84; Pulse 66; Resp 17 S; Pulse Ox 97% on R/A; lg3 07/05 22:18 Body Mass Index 48.06 (127.01 kg, 162.56 cm) kb3 [place] Coma Score: 07/05 23:49 Eye Response: spontaneous(4). Verbal Response: oriented(5). Motor Response: obeys kb commands(6). Total: 15. MDM: 22:46 Patient medically screened. kb 22:58 Data reviewed: vital signs, nurses notes. Data interpreted: Pulse oximetry: on room air kb is 95 %. Interpretation: normal. 23:47 Counseling: I had a detailed discussion with the patient and/or guardian regarding: the kb historical points, exam findings, and any diagnostic results supporting the discharge/admit diagnosis, lab results, radiology results, the need for outpatient follow up, a family practitioner, to return to the emergency department if symptoms worsen or persist or if there are any questions or concerns that arise at home. 23:49 ED course: Headache resolved after treatment. Pt states he is ready to go home. kb 07/05 22:52 Order name: CBC with Diff lg3 07/05 22:52 Order name: Basic Metabolic Panel 3 07/05 23:28 Order name: CBC with Automated Diff; Complete Time: 23:40 EDMS 07/05 23:32 Order name: Basic Metabolic Panel; Complete Time: 23:40 EDMS 07/05 22:52 Order name: IV Saline Lock; Complete Time: 23:10 lg3 Administered Medications: 23:24 Drug: Benadryl (diphenhydrAMINE) 12.5 mg Route: IVP; Site: left wrist; lg3 07/06 00:10 Follow up: Response: No adverse reaction; Marked relief of symptoms lg3 07/05 23:25 Drug: NS 0.9% 1000 ml Route: IV; Rate: 1 bolus; Site: left wrist; lg3 07/06 00:26 Follow up: Response: No adverse reaction; IV Status: Completed infusion; IV Intake: lg3 1000ml 07/05 23:25 Drug: Ketorolac 15 mg Route: IVP; Site: left wrist; lg3 07/06 00:09 Follow up: Response: No adverse reaction; Marked relief of symptoms lg3 07/05 23:25 Drug: Zofran (Ondansetron) 4 mg Route: IVP; Site: left wrist; lg3 07/06 00:09 Follow up: Response: No adverse reaction; Marked relief of symptoms lg3 00:24 Drug: Potassium Chloride 40 mEq Route: PO; lg3 00:24 Follow up: Response: No adverse reaction lg3 Disposition Summary: 07/05/22 23:49 Discharge Ordered Location: Home kb Condition: Stable kb Diagnosis - Headache kb - Hypokalemia kb Followup: kb - With: Emergency Department - When: As needed - Reason: Worsening of condition Followup: kb - With: Private Physician - When: 2 - 3 days - Reason: Recheck today's complaints, Continuance of care, Re-evaluation by your physician Discharge Instructions: - Discharge Summary Sheet kb - General Headache Without Cause, [id number] kb - Hypokalemia kb Forms: - Medication Reconciliation Form kb - Thank You Letter kb - Antibiotic Education kb - Prescription Opioid Use kb Signatures: Dispatcher [employer] EDCarisa Xie FNP-C FNP-Suzy Pak, RN RN lg3 Alyssa Ford, RN RN kb3
[2022-07-06] MEDS ORDERED: POTASSIUM CL SA 10 MEQ TAB PO ONE (00:12)
[2022-07-06 00:31] VITALS: BP 138/84; O2SAT 97
== END 2022-07-06 00:26 | disposition home or self-care (01) ==
LOC: ER 21:54
DX: R51.9 Headache, unspecified (principal); E87.6 Hypokalemia; G89.29 Other chronic pain; Z88.0 Allergy status to penicillin; Z91.013 Allergy to seafood; Z91.041 Radiographic dye allergy status
CPT/HCPCS: 36415; 80048; 85025; 96361; 96374; 96375; 99284; J1200; J2405; J7030

== ENCOUNTER 2022-07-11 20:13 | Emergency (ER) | payer SELFPAY ==
--- OUTSIDE RECORDS SUMMARY | 2022-07-11 20:43 | XMS REPORT | Continuity of Care Document ---
:1975 Author Organization [facility] t Address [address] [place] [address] Care Team Providers Name Role Phone Asked, No Pcp Primary Care Physician Unavailable Arjun Reynolds MD Attending Clinician [phone] ALBIN ROSAS Attending Clinician Unavailable Albin [...] active active ity of problems problems [facility] Lumbago Lumbago Problem Active 2017-11-07 Me moria [...] Known DA Active U [facility] [place] s 00:00: Regiona 00 [facility] No Known DA Active U 2019- [facility]05 [place] s 00:00: Regiona 00 [facility] NO KNOWN Drug Active Univers ALLERGIE Class ity of S [place] [facility] [place] Social History Social Habit Start Date Stop Date Quantity Comments Source Tobacco use and 2022-06-18 2022-06-18 Smokeless tobacco [facility] exposure 00:00:00 00:00:00 non-user Exposure to 2022-05-20 2022-05-30 Not sure University SARS-CoV-2 00:00:00 20:57:00 [facility] (event) Branch Sex Assigned At [birth year] [facility] 00:00:00 00:00:00 Smoking Status Start Date Stop Date Source Tobacco smoking consumption unknown [facility] Never smoked tobacco [facility] ospital Medications Ordered Filled Start Stop Current Ordering Indication Dosage Frequency Signature Comments Components Source Medication Medication Date Date Medication? Clinician (SIG) Name Name carBAMazepi 2021- No Take 1 Met hodi ne XR 9-25 10-[address] (TEGretol 00:00: 04:59 (200 mg [facility] XR) 200 MG 00 :00 total) by l 12 hr mouth tablet daily for 7 days, THEN 1 tablet (200 mg total) every other day for 7 days. carBAMazepi 2021- Yes Take 1 Met hodi [...] other day for 7 days. diclofenac 2021- No 50mg Q.5D Take 1 Meth willi (VOLTAREN) - 10-03 tablet (50 st 50 MG EC 00:00: 04:59 mg total) Hos byron tablet 00 :00 by mouth 2 l (two) times a day as needed (for pain and swelling. take w/ food) for up to 7 days. diclofenac 2021- Yes 50mg Q.5D [...] for up to 7 days. lidocaine 2021- No 4mL Q.[id number] Apply 4 mL Methodi HCL 06-[id number] (lidocaine) 00:00: 04:59 3D 3 (three) Hospita 2 % 00 :00 times a l solution day for 3 days. Apply to cottonball and place it by toothache lidocaine 2021- Yes 4mL Q.[id number] Apply 4 mL Methodi HCL 06-[id number] (lidocaine) 00:00: 04:59 3D 3 (three) Hospita 2 % 00 :00 times a l solution day for 3 days. Apply to cottonball and place it by toothache lidocaine 2021- No 4mL Q.[id number] Apply 4 mL [facility] HCL 06-[id number] (lidocaine) 00:00: 04:59 3D 3 (three) Hospita 2 % 00 :00 times a l solution day for 3 days. Apply to cottonball and place it by toothache butalbital- 2021- No 1{tbl} 1 tablet, Univers acetaminoph 05-31 Oral, ity of en-caff 02:30: 02:22 ONCE, 1 [place] (ESGIC) 00 :00 dose, On Medical 50-325-40 05/30/22 Bran ch mg tablet 1 at 2130, tablet CHRISTINA butalbital- Yes [id number] 1{tbl} Take 1 Univers acetaminoph - tablet by ity of en-caff 00:00: mouth [place] 50-325-40 00 every 6 Medical mg tablet (six) Branch hours as needed for Pain (scale 4-6) or Pain (scale 7-10). ondansetron 2021- No 4mg Q8H Take 1 [...] 30 days. LISINOPRIL Yes Take by [facility] ers ORAL 8-16 mouth. ity of 21:45: [address] HYDROcodone Yes 1{tbl} Take 1 Un butch -acetaminop 8-16 tablet by ity of hen ([employer]) 21:45: mouth [place] 10-325 mg 20 every 6 Medical tablet (six) Branch hours as needed. LISINOPRIL Yes Take by [facility] ers ORAL 8-16 mouth. ity of 21:45: [address] HYDROcodone Yes 1{tbl} Take 1 Un butch -acetaminop 8-16 tablet by ity of hen ([employer]) 21:45: mouth [place] 10-325 mg 20 every 6 Medical tablet (six) Branch hours as needed. ketorolac 2021- Yes 30mg 30 mg, Unive rs (TORADOL) 04-23 Intramuscu ity of injection 21:15: 09:14 lar, ONCE, [place] 30 mg 00 :00 1 dose, On Medical [facility] 04/23/22 at 1615, Routine metoclopram 2021- No 10mg 10 mg, Uni vers darren HCl 04-23 Intramuscu ity o f (REGLAN) 20:15: 20:45 [place] :00 1 dose, On Medi shannan 10 mg [facility] 04/23/22 at 1515, CHRISTINA Hydrocodone Yes [place] 1 tablet Memoria -Acetaminop 2-14 Irfan as needed l hen 03:47: [place] Garibay Carisoprodo Yes [place] 1 tablet Memoria l 2-14 Irfan as needed l 03:47: [place] 13 Meloxicam Yes [place] 1 tablet Memoria 2-14 Irfan l 03:47: [place] Hydrocodone 2018-0 Yes [place] 1 tablet Memoria -Acetaminop 2-14 Irfan as needed l hen 03:47: Carisoprodo 2018-0 Yes [place] 1 tablet Memoria l 2-14 Irfan as needed l 03:47: [place] 13 Meloxicam 2018-0 Yes [place] 1 tablet Memoria 2-14 Irfan l 03:47: Acetaminoph 2017-0 Yes [place] 1 tablet Memoria en-Codeine 2-01 Irfan as needed l #3 00:00: Acetaminoph 2017-0 Yes [place] 1 tablet Memoria en-Codeine 2-01 Irfan as needed l #3 00:00: Prednisone Prednisone 2017-0 Yes 60mg QD C [facility] l (LUF/LI V/SA) Meloxicam 2017-0 Yes [place] 1 tablet Memoria 1-15 Irfan l 00:00: [place] 0 Yes [place] 1 tablet Enrique elkin 1-15 Irfan as needed l 00:00: [place] 2018-0 Yes [place] 1 tablet Memor ia 1-15 Irfan as needed l 00:00: [place] 2018-0 Yes Tosusaint 1 tablet Enrique elkin 1-15 Irfan as [...] tablet needed for Pain (scale 4-6). acetaminoph 2016-0 Yes 1{tbl} Take 1 Tab Univers en-codeine 3-31 by mouth ity o f (TYLENOL-CO 00:00: every 4 Tava[place] as DEINE #3) 00 (four) Medical 300-30 mg hours as Branch tablet needed for Pain (scale 4-6). Vital Signs Vital Name Observation Time Observation Value Comments Source Systolic blood 2022-05-31 01:59:00 128 mm[Hg] Univer sity [facility] Diastolic blood 2022-05-31 01:59:00 81 [facility]Hg[facility] 2022-05-31 01:59:00 78 /min [facility] Body temperature 2022-05-31 01:59:00 36.94 Amisha [facility] Respiratory rate 2022-05-31 01:59:00 18 /min [facility] Body height 2022-05-31 01:59:00 165.1 cm Universi ty [facility] Body weight 2022-05-31 01:59:00 127.007 kg [facility] BMI 2022-05-31 01:59:00 46.59 kg/m2 [facility] Oxygen saturation in 2022-05-31 01:59:00 95 /min [facility] Arterial blood by [facility] Pulse oximetry Branch Systolic blood 2022-05-10 02:39:00 148 mm[facility]Hg[facility] Di[facility] blood 2022-05-10 02:39:00 84 mm[facility]Hg] [facility] Heart rate 2022-05-10 02:39:00 70 /min Universi ty [facility] Body temperature 2022-05-10 02:39:00 37.56 Amisha [facility] Respiratory rate 2022-05-10 02:39:00 18 /min [facility] Body height 2022-05-10 02:39:00 162.6 cm Universi ty [facility] Body weight 2022-05-10 02:39:00 127.007 kg Universi ty [facility] BMI 2022-05-10 02:39:00 48.06 kg/m2 Universi ty [facility] Oxygen saturation in 2022-05-10 02:39:00 95 /min University of Arterial blood by [facility] Pulse oximetry Branch Body weight 2022-04-23 20:11:00 133.131 kg Universi ty [facility] BMI 2022-04-23 20:11:00 50.38 kg/m2 Universi ty [facility] Systolic blood 2022-04-23 20:09:00 140 mm[Hg] Univer sity of pressure [facility] Diastolic blood 2022-04-23 20:09:00 81 mm[Hg] Unive rsity of [facility] Heart rate 2022-04-23 20:09:00 66 /min Universi ty [facility] Body temperature 2022-04-23 20:09:00 36.72 Amisha [facility] rate 2022-04-23 20:09:00 17 /min [facility] Body height 2022-04-23 20:09:00 162.6 cm Universi ty [facility] Oxygen saturation in 2022-04-23 20:09:00 97 /min University of Arterial blood by [facility] Pulse oximetry [place] Systolic blood 2022-06-18 15:20:24 157 mm[Hg] [facility] pressure Diastolic blood 2022-06-18 15:20:24 74 mm[Hg] [facility] pressure Heart rate 2022-06-18 15:20:24 53 /min [facility] Body temperature 2022-06-18 15:20:24 36.78 Amisha [facility] Respiratory rate 2022-06-18 15:20:24 16 /min [facility] Oxygen saturation in 2022-06-18 15:20:24 97 /min [facility] Arterial blood by Pulse oximetry Body height 2022-06-18 12:48:00 162.6 cm [facility] Body weight 2022-06-18 12:48:00 127.007 kg [facility] BMI 2022-06-18 12:48:00 48.06 kg/m2 [facility] Systolic blood 2022-05-21 00:33:00 132 mm[Hg] [facility] pressure Diastolic blood 2022-05-21 00:33:00 64 mm[Hg] [facility] pressure Heart rate 2022-05-21 00:33:00 64 /min [facility] Oxygen saturation in 2022-05-21 00:33:00 98 /min [facility] Arterial blood by Pulse oximetry Body temperature 2022-05-20 23:53:12 36.17 Amisha [facility] Respiratory rate 2022-05-20 23:53:12 18 /min [facility] Body height 2022-05-20 23:52:00 162.6 cm [facility] Body weight 2022-05-20 23:52:00 127.007 kg [facility] BMI 2022-05-20 23:52:00 48.06 kg/m2 [facility] Weight 2017-10-25 15:00:[address] [facility] Height 2017-10-25 15:00:[address] [facility] Temperature Oral (F) 2017-10-25 15:00:[address] [facility] Heart Rate 2017-10-25 15:00:00 [facility] Di[facility] (mm Hg) 2017-10-25 15:00:00 [facility] Sy[facility]olic (mm Hg) 2017-10-25 15:00:00 [facility] Temperature 2017-10-21 12:00:00 97.5 F [facility] (LUF/BLANCA/SA) Respiratory Rate 2017-10-21 12:00:00 20 /min [facility] ([facility]/BLANCA/SA) O2% BldC Oximetry 2017-10-21 12:00:00 98 % [facility] (LUF/BLANCA/SA) BP Systolic 2017-10-21 12:00:00 132 mm[Hg] [facility] (LUF/BLANCA/SA) BP Diastolic 2017-10-21 12:00:00 78 mm[Hg] [facility] (LUF/BLANCA/SA) Height 2017-10-21 12:00:00 64 in [facility] (LUF/BLANCA/SA) Weight Measured 2017-10-21 12:00:00 282.19 lbs [facility] (LUF/BLANCA/SA) BMI (Body Mass 2017-10-21 12:00:[address] [facility] Index) [facility] (LUF/BLANCA/SA) Weight 2017-10-08 15:45:00 [facility] Tavo Height 2017-10-08 15:45:[address] [facility] Temperature Oral (F) 2017-10-08 15:45:00 96.8 F [facility] [place] Heart Rate 2017-10-08 15:45:00 [facility] [place] Diastolic (mm Hg) 2017-10-08 15:45:00 [facility] orial Tavo Systolic (mm Hg) 2017-10-08 15:45:00 Enrique rial [place] Procedures Procedure Date / Time Performing Clinician Source Performed CT MAXILLOFACIAL WO 2022-06-18 14:48:32 Abdi [facility] CONTRAST CONSENT/REFUSAL FOR 2022-05-31 01:55:15 Doctor Unassigned, No [facility] [place] DIAGNOSIS AND TREATMENT Name Medical Branch CT CERVICAL SPINE WO 2022-05-21 01:24:51 [facility] CONTRAST CT HEAD WO CONTRAST 2022-05-21 01:15:40 [facility] POC GLUCOSE 2022-05-21 00:33:00 [facility] NOTICE OF PRIVACY 2022-05-10 02:37:04 Doctor Unassigned, No Univ [facility] [place] PRACTICES Name Medical Branch CONSENT/REFUSAL FOR 2022-05-10 02:35:02 Doctor Unassigned, No [facility] [place] DIAGNOSIS AND TREATMENT Name Medical Branch CONSENT/REFUSAL FOR 2022-04-23 20:00:28 Doctor Unassigned, No [facility] [place] DIAGNOSIS AND TREATMENT Name Medical Branch Plan of Care Planned Activity Planned Date Details Comments Source Future Scheduled 2022-06-18 [facility] 09:25:33 VACCINES (1 of 3 - 3-dose series) [code = HEPATITIS B VACCINES (1 of 3 - 3-dose series)] Future Scheduled 2022-06-18 [facility]atitis [facility] 09:25:33 screening (procedure) [code = 511988043] Future Scheduled 2022-06-18 COVID-19 VACCINE (3 [facility] Test 09:25:33 - Booster for Pfizer series) [code = COVID-19 VACCINE (3 - Booster for Pfizer series)] Future Scheduled 2022-06-18 INFLUENZA VACCINE [facility] Test 09:25:33 [code = INFLUENZA VACCINE] Future Scheduled 2022-06-18 [facility] 09:25:33 VACCINES (1 of 3 - 3-dose series) [code = HEPATITIS B VACCINES (1 of 3 - 3-dose series)] Future Scheduled 2022-06-18 [facility] 09:25:33 screening (procedure) [code = 814607876] Future Scheduled 2022-06-18 COVID-19 VACCINE (3 [facility] Test 09:25:33 - Booster for Pfizer series) [code = COVID-19 VACCINE (3 - Booster for Pfizer series)] Future Scheduled 2022-06-18 INFLUENZA VACCINE [facility] Test 09:25:33 [code = INFLUENZA VACCINE] Future Scheduled 2022-06-18 [facility] 09:25:33 VACCINES (1 of 3 - 3-dose series) [code = HEPATITIS B VACCINES (1 of 3 - 3-dose series)] Future Scheduled 2022-06-18 [facility] 09:25:33 screening (procedure) [code = 085555155] Future Scheduled 2022-06-18 COVID-19 VACCINE (3 [facility] Test 09:25:33 - Booster for Pfizer series) [code = COVID-19 VACCINE (3 - Booster for Pfizer series)] Future Scheduled 2022-06-18 INFLUENZA VACCINE [facility] Test 09:25:33 [code = INFLUENZA VACCINE] Future Scheduled 2022-06-09 [facility] 18:36:38 VACCINES (1 of 3 - 3-dose series) [code = HEPATITIS B VACCINES (1 of 3 - 3-dose series)] Future Scheduled 2022-06-09 [facility] 18:36:38 screening (procedure) [code = 657207879] Future Scheduled 2022-06-09 COVID-19 VACCINE (3 [facility] Test 18:36:38 - Booster for Pfizer series) [code = COVID-19 VACCINE (3 - Booster for Pfizer series)] Future Scheduled 2022-06-09 INFLUENZA VACCINE [facility] Test 18:36:38 [code = INFLUENZA VACCINE] Future Scheduled 2022-05-25 [facility]IS [facility] 07:52:22 VACCINES (1 of 3 - 3-dose series) [code = HEPATITIS B VACCINES (1 of 3 - 3-dose series)] Future Scheduled 2022-05-25 [facility] 07:52:22 screening (procedure) [code = 238087837] Future Scheduled 2022-05-25 COVID-19 VACCINE ([address] [facility] Test 07:52:22 - Booster for Pfizer series) [code = COVID-19 VACCINE (3 - Booster for Pfizer series)] Future Scheduled 2022-05-25 INFLUENZA VACCINE Method [facility] Test 07:52:22 [code = INFLUENZA VACCINE] Future Scheduled 2022-05-25 [facility]IS [facility] 07:52:22 VACCINES (1 of 3 - 3-dose series) [code = HEPATITIS B VACCINES (1 of 3 - 3-dose series)] Future Scheduled 2022-05-25 [facility] Test 07:52:22 screening (procedure) [code = 809034702] Future Scheduled 2022-05-25 COVID-19 VACCINE (3 Meth [facility] Test 07:52:22 - Booster for Pfizer series) [code = COVID-19 VACCINE (3 - Booster for Pfizer series)] Future Scheduled 2022-05-25 INFLUENZA VACCINE Method [facility] Test 07:52:22 [code = INFLUENZA VACCINE] Encounters Start End Encounter Admission Attending Care Care Encounter Source Date/Time Date/Time Type Type Clinicians Facility Department ID 2022-07-11 Outpatient [id number] Memoria 20:33:16 [id number] F4-47BE-8F8 4J4-37RR- 8 l -7O9U-18K F-55TPNQ051 I7W-68ODDS Tavo [id number] FAD [id number] 2022-07-05 Outpatient [id number] [facility] 21:55:55 28Z6-47G6 E6-87S4-Y25 7W6-60O3- A l -S11I-5S7 A-1F815VBW1 53A-1Z275O [place] 51HVL9N5A F6F BA1F6F 2022-06-20 Outpatient [id number] [id number]-[id number] FEAA B0FE-B Memoria 20:55:03 U64Z-0VAY 9E-4FBC-9E6 39E-4FBC- 9 l -8N88-U08 0-A10ING868 W93-A90ZIH [place] [id number] 7B9 9867B9 2022-06-18 Outpatient [id number] 41FC-3 Memoria 07:44:31 7H48-6OPO 17-4EED-9D8 N86-7XFU- 9 l -2N35-I1L 1-M2BA321Z4 T31-P1RD16 [place] [id number] A09 2A0A09 2022-06-14 Outpatient [id number] [id number]-D Memoria 22:44:21 R55R-3B56 0A-5R54-524 90A-4A19- 9 l -9064-22B 4-85D093E9S 064-33Q289 Tavo [id number] 120 P6E943 2022-06-08 Outpatient [id number] 4BD7-F [facility] 21:22:44 X24M-9DZ5 4B-3VA7-928 44B-4BC4- 8 l -819B-E8C B-P7N91135T 19B-R6U923 Tavo [id number] C63 [id number] 2022-06-03 Outpatient [id number] ABCB 93A3-4 Memoria 01:33:52 4565-43DE 65-43DE-92E 565-43DE- 9 l -97E4-580 7-345EV53GW 0H8-954CZ0 Tavo QW60PM394 217 [id number] 2022-05-30 Outpatient [id number] F493-4 [facility] 20:55:52 2B67-244E 39-438E-9B8 A76-236I- 9 l -7D52-7PE 0-9BDI9W4HL R46-9JGC0Z Tavo S4Q1UGH56 F41 4BEF41 2022-05-20 Outpatient [id number]-[id number] A21D-1 Memoria 18:55:15 1FAA-4CF3 AA-0ZS0-54G FAA-4CF3- 8 l -80ED-A77 D-C93H95245 0ED-A77A25 Tavo [id number] [id number] 5224-09-27 Outpatient [id number] Memoria 14:21:52 77W7-6QHM F0-4CEA-948 0F7-1CDW- 9 l -9486-B77 6-S22XMV1S4 486-B77BBD Tavo EGJ8X12J2 4C4 1C14C4 2021-06-20 Outpatient [id number] BE16-8 Memoria 14:21:45 8434-49AE 34-49AE-95B 434-49AE- 9 l -95BD-57D D-21DH80P3P 5BD-57DA06 Tavo [id number] 032 D5R507 2021-05-30 Outpatient [id number] [id number] Memoria 15:44:20 DAF5-4596 F5-4596-BFE AF5-4596- B l -BFE1-51A 1-94HAL33BA FE1-51ACA1 Tavo VG16QA7UC 1BA 9CA1BA 2020-01-20 Inpatient [facility] [id number] [facility] 15:25:00 21 [facility] 2019-12-16 Inpatient [facility] [id number] [facility] 17:49:00 32 [facility] 2019-12-12 Inpatient [facility] [id number] [facility] 08:32:00 83 [facility] 2019-11-27 Inpatient [facility] [id number] [facility] 07:33:00 06 [facility] 2022-06-18 2022-06-18 Emergency Rodolfo, 1.2.840.1 [id number] Methodi 07:52:00 10:32:[address] [facility] 3.430.2.7 [facility] .3.777053 l .8 2022-06-18 2022-06-18 Emergency Rodolfo, 1.2.840.1 [id number] Methodi 07:52:00 10:32:[address] Subhash 3.430.2.7 [facility] .3.692443 l .8 2022-05-30 2022-05-30 Emergency X [facility] ERT [id number] Univers 21:02:00 21:53:00 ALBIN ibrahim of [facility] 2022-05-30 2022-05-30 Emergency [facility] 1.2.043.159 [id number] Univers 21:02:00 21:53:00 Albin RUSSO 350.1.13.10 i ty [facility] 4.2.7.2.686 [facility] [id number] [address] 2022-05-20 2022-05-20 Emergency Bárbara 1.2.840.1 [id number] Methodi 19:29:00 21:04:[address] 3.430.2.7 Hospit a .3.782558 l .8 2022-05-20 2022-05-20 Emergency Bárbara 1.2.840.1 [id number] Methodi 19:29:00 21:04:[address] 3.430.2.7 Hospit a .3.651229 l .8 2022-05-20 2022-05-20 Travel 1.2.840.1 1.2.200.558 [id number] Methodi 00:00:00 00:00:[address] 3.430.2.7 0.2.7.3.698 Ho spita .3.851289 084.8 l .8 2022-05-20 2022-05-20 Travel 1.2.840.1 1.2.248.460 [id number] Methodi 00:00:00 00:00:[address] 3.430.2.7 0.2.7.3.698 Ho spita .3.916179 084.8 l .8 2022-05-09 2022-05-[address] [facility] E[facility] [id number] Univers 21:45:00 21:46:00 CHER ibrahim [facility] 2022-05-09 2022-05-09 Emergency [facility] 1.2.840.114 [id number] Univers 21:45:00 21:46:00 Cher RUSSO 350.1.13.10 [facility] 4.2.7.2.686 [facility] [id number] [address] 2022-04-23 2022-04-[address] [facility] ERT [id number] Univers 15:11:00 15:52:00 BO fu [facility] 2022-04-23 2022-04-[address] [facility] 1.2.844.651 [id number] Univers 15:11:00 15:52:00 Bo RUSSO 350.1.13.10 [facility] 4.2.7.2.686 [facility] [id number] [address] 2021-09-14 2021-09-14 Outpatient FERGUSON_JO [facility] 117 [address] [place] 02:13:00 02:13:00 [place] [id number] [facility] 2021-09-08 2021-09-08 Outpatient [facility] 117 [id number] [place] 02:19:00 02:19:[place] [id number] [facility] 2017-11-01 2017-11-01 Outpatient [facility] [id number] e[facility]inic 10:47:00 10:47:00 [facility] Clinic 2017-10-25 2017-10-25 Outpatient Family Family [id number] eClinic 09:00:00 09:00:00 [facility] Clinic 2017-10-21 2017-10-21 PAIN IN NIKKI, [facility] [id number] [facility] 11:51:00 14:48:00 [facility], [address], (LUF/[place] [address] 2017-10-21 2017-10-21 PAIN IN NIKKI, [facility] [id number] 11:51:00 14:48:00 THORACIC BETHANY KING SPINE N 2017-10-08 2017-10-08 Outpatient Family Family [id number] eClinic 09:45:00 09:45:00 [facility] Clinic Results Test Description Test Time Test Comments Results Result Comments Source POC glucose 2022-05-21 00:34:00 Test Item Value Reference Range Interpretation Comme nts POC glucose (test code = 77800-5) 217 mg/dL 65-100 H Welder First Class Name: Zach Avery ID: [id number] Lab Interpretation (test code = Abnormal 84724-1) [facility] [id number] 00:34:00 Test Item Value Reference Range Interpretation Comments POC glucose (test code = 217 mg/dL 65-100 H Ope rator Name: Zach Lieberman7) BinosDevice ID: [id number] Lab Interpretation (test Abnormal code = 94864-5) [facility] [id number] 00:34:00 Test Item Value Reference Range Interpretation Comments POC glucose (test code = 217 mg/dL 65-100 H Ope rator Name: Zach [id number]) BinosDevice ID: [id number] Lab Interpretation (test Abnormal code = 20472-9) [facility] [id number] 00:34:00 Test Item Value Reference Range Interpretation Comments POC glucose (test code = 217 mg/dL 65-100 H Ope rator Name: Zach Lieberman7) BinosDevice ID: [id number] Lab Interpretation (test Abnormal code = 01265-7) [facility] [id number] 00:34:00 Test Item Value Reference Range Interpretation Comments POC glucose (test code = 217 mg/dL 65-100 H Ope rator Name: Zach [id number]) BinosDevice ID: [id number] Lab Interpretation (test Abnormal code = 73243-4) [facility] [id number] 00:34:00 Test Item Value Reference Range Interpretation Comments POC glucose (test code = 217 mg/dL 65-100 H Ope rator Name: Zach [id number]) BinosDevice ID: [id number] Lab Interpretation (test Abnormal code = 28090-3) [facility] HEAD/BRAIN W/O [id number] 18:19:00 Patient Name: VIMAL BARROSO Unit No: [id number] EXAMS: CPT CODE: [id number] CT HEAD/BRAIN W/O CONT 83703 CLINICAL INFORMATION: Moderate frontal headaches. Coughing. Dictation [...] 45.04 DLP: 757.79 Trnscrpt: 12/16/2019 (1818) [facility] Jessica NAME: VIMAL BARROSO [address] [place] [address] PHYS: Germania Isaacs NP, [place] [address] : 1975 AGE:44 SEX: M LOC: B.ERS PHONE #: [phone] EXAM DATE: 12/16/2019 STATUS: PRE ER FAX #: [phone] RAD #: D/C DT PAGE 1 Signed Report Patient Name: VIMAL BARROSO Unit No: [id number] EXAMS: CPT CODE: [id number] CT HEAD/BRAIN W/O CONT 94987 (Continued) Orig Print D/T: S: 12/16/2019 (1822) ADEEL [place] NAME: VIMAL BARROSO [address] [place] [address] Blvd PHYS: Germania Isaacs NP [place], [place] [address] : 1975 AGE: 44 SEX: M [facility] [id number] LOC: B.ERS PHONE #: [phone] EXAM DATE: 12/16/2019 STATUS: PRE ER FAX #: [phone] RAD #: D/C DT PAGE 2 Signed Report- XR CHEST 2 [id number] 09:11:00 FAX: Germania Engel NP [phone] [place]: St: REG Patient Name: VIMAL BARROSO Unit No: [id number] EXAMS: CPT CODE: [id number] XR CHEST 2 V 78639 - XR CHEST 2 V LOCATION: T18 [...] (910) By: Joanna Orig Print D/T: S:12/12/2019 (0914) [facility] NAME: VIMAL BARROSO [address] [place] [address] Blvd PHYS: Lore Isaacs, [place] [address] : 1975 AGE: 44 SEX: M LOC: EMILY PHONE #: [phone] EXAM DATE: 12/12/2019 STATUS: REG ER FAX #: [phone] RAD NO: DC Dt: PAGE 1 Signed ReportSPINE LUMBAR SACR 2017-04-08 13:37:00[facility] [place] [address] [id number] IMAGING REPORTPatient Name: Lili BARROSO of Service: [id number]: 41 Sex: M Order #: [id number] [facility] 1975 X-Ray Number: [id number] Record Number: [id number] Hospital Number: [id number] Physician: Agatha CROW Physician: RUBY TREVIÑO LUMBAR [...]
--- NOTE | 2022-07-11 21:28 | EDPHYS ---
Physician Documentation [facility] Name: Ruben Alamo Age: 46 yrs Sex: Male : 1975 Arrival Date: 07/11/2022 Time: 20:17 Bed 11 Private MD: ED Physician Tristin Lopez HPI: 07/11 21:30 This 46 yrs old Black Male presents to ER via Ambulatory with complaints of Facial snw Swelling, Headache. 21:30 The patient presents with pain, swelling. The problem is located in the lower right snw second molar. Onset: The symptoms/episode began/occurred gradually. Duration: The symptoms are continuous. Associated signs and symptoms: Pertinent positives: swelling, mandibular. Severity of symptoms: At their worst the symptoms were moderate. The patient has experienced similar episodes in the past. It is unknown whether or not the patient has recently seen a physician. Historical: - Allergies: 20:49 Iodine; kl 20:49 PENICILLINS; kl 20:49 SHELLFISH; kl - Home Meds: 20:49 hydrocodone-acetaminophen 10-325 mg/15 mL(15 mL) Oral soln 15 mL every 6 hours kl [Active]; ibuprofen 600 mg Oral tab 1 tab 3 times per day [Active]; - PMHx: 20:49 Chronic pain; kl - PSHx: 20:49 facial reconstruction; Spinal surgery; kl - Immunization history:: Adult Immunizations up to date, Client reports receiving the 2nd dose of the Covid vaccine, Last tetanus immunization: up to date. - Social history:: Smoking status: Patient denies any tobacco usage or history of. ROS: 21:29 Constitutional: Negative for fever, chills, and weight loss, Eyes: Negative for injury, snw pain, redness, and discharge, Neck: Negative for injury, pain, and swelling, Cardiovascular: Negative for chest pain, palpitations, and edema, Respiratory: Negative for shortness of breath, cough, wheezing, and pleuritic chest pain, Abdomen/GI: Negative for abdominal pain, nausea, vomiting, diarrhea, and constipation, Back: Negative for injury and pain, : Negative for injury, bleeding, discharge, and swelling, MS/Extremity: Negative for injury and deformity, Skin: Negative for injury, rash, and discoloration. 21:29 ENT: Positive for dental pain, of the right cheek. 21:29 Neuro: Positive for headache. Exam: 21:28 Constitutional: This is a well developed, well nourished patient who is awake, alert, snw and in no acute distress. Head/Face: Normocephalic, atraumatic. Eyes: Pupils equal round and reactive to light, extra-ocular motions intact. Lids and lashes normal. Conjunctiva and sclera are non-icteric and not injected. Cornea within normal limits. Periorbital areas with no swelling, redness, or edema. 21:28 Neck: Trachea midline, no thyromegaly or masses palpated, and no cervical lymphadenopathy. Supple, full range of motion without nuchal rigidity, or vertebral point tenderness. No Meningismus. Chest/axilla: Normal chest wall appearance and motion. Nontender with no deformity. No lesions are appreciated. Cardiovascular: Regular rate and rhythm with a normal S1 and S2. No gallops, murmurs, or rubs. Normal PMI, no JVD. No pulse deficits. Respiratory: Lungs have equal breath sounds bilaterally, clear to auscultation and percussion. No rales, rhonchi or wheezes noted. No increased work of breathing, no retractions or nasal flaring. Abdomen/GI: Soft, non-tender, with normal bowel sounds. No distension or tympany. No guarding or rebound. No evidence of tenderness throughout. Back: No spinal tenderness. No costovertebral tenderness. Full range of motion. Skin: Warm, dry with normal turgor. Normal color with no rashes, no lesions, and no evidence of cellulitis. MS/ Extremity: Pulses equal, no cyanosis. Neurovascular intact. Full, normal range of motion. Neuro: Awake and alert, GCS 15, oriented to person, place, time, and situation. Cranial nerves II-XII grossly intact. Motor strength 5/5 in all extremities. Sensory grossly intact. Cerebellar exam normal. Normal gait. Psych: Awake, alert, with orientation to person, place and time. Behavior, mood, and affect are within normal limits. 21:28 ENT: Mouth: is normal, Gums: normal with healthy appearance, Dental exam: missing teeth, specifically the lower right first molar (#30), pain, that is moderate, specifically in the lower right second molar (#31). Vital Signs: 20:46 BP 186 / 91; Pulse 56; Resp 20; Temp 98.1; Pulse Ox 100% ; Weight 127.01 kg; Height 5 kl ft. 4 in. (162.56 cm); Pain 10/10; 21:50 BP 178 / 88; Pulse 62; Resp 20; Pulse Ox 99% on R/A; kl 20:46 Body Mass Index 48.06 (127.01 kg, 162.56 cm) kl MDM: 21:04 Patient medically screened. snw 21:29 Data reviewed: vital signs, nurses notes. Data interpreted: Pulse oximetry: on room air snw is 100 %. Interpretation: normal. Counseling: I had a detailed discussion with the patient and/or guardian regarding: the historical points, exam findings, and any diagnostic results supporting the discharge/admit diagnosis, the need for outpatient follow up, to return to the emergency department if symptoms worsen or persist or if there are any questions or concerns that arise at home. Special discussion: I have referred the patient to see his PCP for further evaluation of high blood pressure. Based on the history and exam findings, there is no indication for further emergent testing or inpatient evaluation. I discussed with the patient/guardian the need to see a dentist for further evaluation of the symptoms. I discussed with the patient/guardian the need to see the primary care provider for further evaluation of the symptoms. Administered Medications: 21:38 Drug: Ketorolac 30 mg Route: IM; Site: left deltoid; kl 21:47 Follow up: Response: No adverse reaction kl 21:38 Drug: Clindamycin 300 mg Route: PO; kl 21:47 Follow up: Response: No adverse reaction Disposition: 22:41 Co-signature as Attending Physician, Tristin Lopez MD. rn Disposition Summary: 07/11/22 21:27 Discharge Ordered Location: Home snw Condition: Stable snw Diagnosis - Dental caries, unspecified snw - Essential (primary) hypertension snw Followup: snw - With: Emergency Department - When: As needed - Reason: Worsening of condition Followup: snw - With: Private Physician - When: 2 - 3 days - Reason: Recheck today's complaints, Continuance of care, Re-evaluation by your physician Discharge Instructions: - Discharge Summary Sheet snw - Dental Caries, Adult snw - Dental Pain snw - Hypertension, Adult snw - Diet and Dental Disease snw - DASH Eating Plan snw - Rehydration, Adult snw - Managing Your Hypertension snw Forms: - Medication Reconciliation Form snw - Thank You Letter snw - Antibiotic Education snw - Prescription Opioid Use snw Prescriptions: - Clindamycin HCl 300 mg Oral Capsule - take 1 capsule by ORAL route every 6 hours for 10 days; 40 capsule; Refills: 0, snw Product Selection Permitted Signatures: Gia Villavicencio RN RN Kaylee Brower, CD REACTOR OPERATOR HEAD-C CD REACTOR OPERATOR HEAD-Csnw Tristin Lopez MD MD rn
--- NOTE | 2022-07-11 21:28 | ER ---
Nurse's Notes [facility] Name: Ruben Alamo Age: 46 yrs Sex: Male : 1975 Arrival Date: 07/11/2022 Time: 20:17 Bed 11 Private MD: Diagnosis: Dental caries, unspecified;Essential (primary) hypertension Presentation: 07/11 20:46 Chief complaint: Patient states: Pt reports he has had multiple teeth pulled over the last few weeks and has been seen in this ED for pain in his jaw. Pt reports pain today is in the posterior right upper jaw. Coronavirus screen: Vaccine status: Patient reports receiving the 2nd dose of the covid vaccine. Client denies travel out of the [place] in the last 14 days. Ebola Screen: Patient negative for fever greater than or equal to 101.5 degrees Fahrenheit, and additional compatible Ebola Virus Disease symptoms Patient denies exposure to infectious person. Patient denies travel to an Ebola-affected area in the 21 days before illness onset. No symptoms or risks identified at this time. Initial Sepsis Screen: Does the patient meet any 2 criteria? No. Patient's initial sepsis screen is negative. Does the patient have a suspected source of infection? No. Patient's initial sepsis screen is negative. Risk Assessment: Do you want to hurt yourself or someone else? Patient reports no desire to harm self or others. Onset of symptoms was July 08, 2022. 20:46 Method Of Arrival: Ambulatory 20:46 Acuity: LIZBETH 3 Triage Assessment: 20:49 Headache History: The patient has had previous headaches and this one is similar to previous episodes. General: Appears in no apparent distress. uncomfortable, Behavior is calm, cooperative. Pain: Complains of pain in forehead, right cheek, right quaker and right jaw Pain currently is 10 out of 10 on a pain scale. Quality of pain is described as throbbing, Pain began 2-3 days ago. Neuro: No deficits noted. Level of Consciousness is awake, alert, obeys commands, Oriented to person, place, time, situation. Historical: - Allergies: 20:49 Iodine; 20:49 PENICILLINS; 20:49 SHELLFISH; - Home Meds: 20:49 hydrocodone-acetaminophen 10-325 mg/15 mL(15 mL) Oral soln 15 mL every 6 hours kl [Active]; ibuprofen 600 mg Oral tab 1 tab 3 times per day [Active]; - PMHx: 20:49 Chronic pain; kl - PSHx: 20:49 facial reconstruction; Spinal surgery; kl - Immunization history:: Adult Immunizations up to date, Client reports receiving the 2nd dose of the Covid vaccine, Last tetanus immunization: up to date. - Social history:: Smoking status: Patient denies any tobacco usage or history of. Screenin:51 Abuse screen: Denies threats or abuse. Nutritional screening: No deficits noted. Tuberculosis screening: No symptoms or risk factors identified. Fall Risk None identified. Assessment: 21:50 Reassessment: Patient appears in no apparent distress at this time. Patient and/or kl family updated on plan of care and expected duration. Pain level reassessed. Patient is alert, oriented x 3, equal unlabored respirations, skin warm/dry/pink. Pain: Complains of pain in mouth and lower right second molar. Vital Signs: 20:46 BP 186 / 91; Pulse 56; Resp 20; Temp 98.1; Pulse Ox 100% ; Weight 127.01 kg; Height 5 kl ft. 4 in. (162.56 cm); Pain 10/10; 21:50 BP 178 / 88; Pulse 62; Resp 20; Pulse Ox 99% on R/A; kl 20:46 Body Mass Index 48.06 (127.01 kg, 162.56 cm) ED Course: 20:17 Patient arrived in ED. jj6 20:30 Kaylee Ewing FNP-C is [facility]. snw 20:30 Tristin Lopez MD is Attending Physician. snw 20:49 Triage completed. kl 20:49 Arm band placed on left wrist. kl 21:51 No provider procedures requiring assistance completed. Patient did not have IV access during this emergency room visit. Administered Medications: 21:38 Drug: Ketorolac 30 mg Route: IM; Site: left deltoid; kl 21:47 Follow up: Response: No adverse reaction kl 21:38 Drug: Clindamycin 300 mg Route: PO; kl 21:47 Follow up: Response: No adverse reaction Outcome: 21:27 Discharge ordered by . snw 21:51 Patient left the ED. Signatures: Gia Villavicencio RN RN kl Kaylee Ewing FNP-C HELMET BINDER-Csnw Trinh Castro jj6
[2022-07-11] MEDS ORDERED: KETOROLAC 30 MG/ML INJ ONE (21:29)
[2022-07-11 22:57] VITALS: TEMP 98.1
[2022-07-11 22:58] VITALS: BP 178/88; O2SAT 99
== END 2022-07-11 21:51 | disposition home or self-care (01) ==
LOC: ER 20:13
DX: K02.9 Dental caries, unspecified (principal); I10 Essential (primary) hypertension
CPT/HCPCS: 96372; 99282

== ENCOUNTER 2022-09-25 18:37 | Emergency (ER) | payer SELFPAY ==
--- OUTSIDE RECORDS SUMMARY | 2022-09-25 18:41 | XMS REPORT | Continuity of Care Document ---
:1975 Author Organization [facility] t Address [address] [place] [address] [place] [address] Care Team Providers Name Role Phone PCP, PATIENT DOES NOT HAVE A Primary Care Physician Unavailmiguel Reynolds MD, Arjun Cullen Attending Clinician [phone] ALBIN ROSAS Attending Clinician Unavailable Albin Purvis Attending Clinician Kayece Butt MD Attending Clinician CHER JIMÉNEZ Attending [...] rs active active ity of problems problems [facility] Lumbago Lumbago Problem Active 2017-11-07 Me moria with with 03:47:18 l sciatica, sciatica, Herm marcus left side left side Active Problem 11/07/2017 Family Diagnostic Body mass Body mass Problem Active 2017-11-07 Memoria index index 03:47:18 l (BMI) (BMI) [place] 45.0-49.9, 45.0-49.9, adult adult Active Problem 11/07/2017 Family Diagnostic Other Other Problem Active 2017-11-07 Memor ia chronic chronic 03:47:18 l pain pain [place] Active Problem 11/07/2017 Family Diagnostic Allergies, Adverse [...] to drug Shellfis Propensi Active Anaphylaxis Gris bermudez h ty to 06-18 st Derived adverse 00:00: Hospita reaction 00 l s to drug SHELLFIS DRUG Active Unknown-Cmnt Un butch H INGREDI 8-16 ity of DERIVED 00:00: [place] [address] [place] [address] Branch Shellfis Propensi Active Unknown - Uni vers h ty to See comments 816 ity of Derived adverse 00:00: [place] reaction 00 Medical s Branch No Known DA Active U [facility] All[facility]ie 3-05 [place] s 00:00: Regiona 00 [facility] No Known DA Active U 2019- [facility] Allergie 3-05 [place] s 00:00: Regiona 00 [facility] NO KNOWN Drug Active Univers ALLERGIE Class ity of S [place] [facility] [place] Social History Social Habit Start Date Stop Date Quantity Comments Source Tobacco use and 2022-06-18 2022-06-18 Smokeless tobacco [facility] exposure 00:00:00 00:00:00 non-user Exposure to 2022-05-20 2022-05-30 Not sure University SARS-CoV-2 00:00:00 20:57:00 [facility] (event) Branch Sex Assigned At [birth year] [facility] 00:00:00 00:00:00 Smoking Status Start Date Stop Date Source Tobacco smoking consumption unknown [facility] Never smoked tobacco [facility] ospital Medications Ordered Filled Start Stop Current [...] every other day for 7 days. diclofenac 2021-0 2022- No 50mg Q.5D Take 1 Meth willi (VOLTAREN) 9-25 10-03 tablet (50 st 50 MG EC 00:00: 04:59 mg total) Hos byron tablet 00 :00 by mouth 2 l (two) times a day as needed (for pain and swelling. take w/ food) for up to 7 days. diclofenac 2021-0 2022- No 50mg Q.5D Take 1 Meth willi (VOLTAREN) 9-25 10-03 tablet (50 st 50 MG EC 00:00: 04:59 mg total) Hos byron tablet 00 :00 by mouth 2 l (two) times a day as needed (for pain and swelling. take w/ food) for up to 7 days. diclofenac 2021-0 2021- No 50mg Q.5D Take 1 Meth willi (VOLTAREN) 9-25 10-03 tablet (50 st 50 MG EC 00:00: 04:59 mg total) Hos byron tablet 00 :00 by mouth 2 l (two) times a day as needed (for pain and swelling. take w/ food) for up to 7 days. diclofenac 2021-0 2- No 50mg Q.5D Take 1 Meth willi (VOLTAREN) 9-25 10-03 tablet (50 st 50 MG EC 00:00: 04:59 mg total) Hos byron tablet 00 :00 by mouth 2 l (two) times a day as needed (for pain and swelling. take w/ food) for up to 7 days. lidocaine 2021-0 2021- No 4mL Q.[id number] Apply 4 mL Methodi HCL 06-[id number] (lidocaine) 00:00: 04:59 3D 3 (three) Hospita 2 % 00 :00 times a l solution day for 3 days. Apply to cottonball and place it by toothache lidocaine 2021-0 2021- No 4mL Q.[id number] Apply 4 mL Methodi HCL 06-[id number] (lidocaine) 00:00: 04:59 3D 3 (three) Hospita 2 % 00 :00 times a l solution day for 3 days. Apply to cottonball and place it by toothache lidocaine 2021- No 4mL Q.[id number] Apply 4 mL Methodi HCL 06-[id number] (lidocaine) 00:00: 04:59 3D 3 (three) Hospita 2 % 00 :00 times a l solution day for 3 days. Apply to cottonball and place it by toothache lidocaine 0 2021- No 4mL Q.[id number] Apply 4 mL Methodi HCL 06-[id number] (lidocaine) 00:00: 04:59 3D 3 [...] 1 at 2130, tablet CHRISTINA butalbital- Yes [id number] 1{tbl} Take 1 Univers acetaminoph - tablet [...] vomiting for up to 30 days. ondansetron 2021-2021- No 4mg Q8H Take 1 Met hodi ODT 8-20 06-27 tablet (4 st (ZOFRAN-ODT 00:00: 04:59 mg total) Hospita ) 4 MG 00 :00 by mouth l disintegrat every 8 ing tablet (eight) hours as needed for nausea or vomiting for up to 30 days. ondansetron 2022-0 2022- No 4mg Q8H Take 1 Met hodi ODT 8-20 06-27 tablet (4 st (ZOFRAN-ODT 00:00: 04:59 mg total) Hospita ) 4 MG 00 :00 by mouth l disintegrat every 8 ing tablet (eight) hours as needed for nausea or vomiting for up to 30 days. ondansetron 2022-0 2022- No 4mg Q8H Take 1 Met hodi ODT 8-20 06- tablet (4 st (ZOFRAN-ODT 00:00: 04:59 mg total) Hospita ) 4 MG 00 :00 by mouth l disintegrat every 8 ing tablet (eight) hours as needed for nausea or vomiting for up to 30 days. ondansetron 2022-0 2022- No 4mg Q8H Take 1 Met hodi ODT 8-20 06- tablet (4 st (ZOFRAN-ODT 00:00: 04:59 mg total) Hospita ) 4 MG 00 :00 by mouth l disintegrat every 8 ing tablet (eight) hours as needed for nausea or vomiting for up to 30 days. ondansetron 2022-0 2022- No 4mg Q8H Take 1 Met hodi ODT 8- tablet (4 st (ZOFRAN-ODT 00:00: 04:59 mg total) Hospita ) 4 MG 00 :00 by mouth l disintegrat every 8 ing tablet (eight) hours as needed for nausea or vomiting for up to 30 days. ondansetron 2022-0 2022- No 4mg Q8H Take 1 Met hodi ODT 8- tablet (4 st (ZOFRAN-ODT 00:00: 04:59 mg total) Hospita ) 4 MG 00 :00 by mouth l disintegrat every 8 ing tablet (eight) hours as needed for nausea or vomiting for up to 30 days. LISINOPRIL 0 Yes Take by [facility] ORAL 8-16 mouth. ity of 21:45: [place] 20 Medical Branch HYDROcodone 2021-0 Yes 1{tbl} Take 1 [...] (six) Branch hours as needed. ketorolac 2021- No 30mg 30 mg, Unive rs (TORADOL) 04-23 Intramuscu ity of injection 21:15: 09:14 lar, ONCE, [place] 30 mg 00 :00 1 dose, On [facility] [place] Branch 04/23/22 at 1615, Routine metoclopram 2021- No 10mg 10 mg, Uni vers darren HCl 04-23 Intramuscu ity o f (REGLAN) 20:15: 20:45 [place] injection 00 :00 1 dose, On Medi shannan 10 mg [facility] 04/23/22 at 1515, CHRISTINA Hydrocodone [...] 1 tablet Memoria 2-14 Irfan l 03:47: Taov Acetaminoph 2017-0 Yes [place] 1 tablet Memoria en-Codeine 2-01 Irfan as needed l #3 00:00: Tavo Acetaminoph 2017-0 Yes [place] 1 tablet Memoria en-Codeine 2-01 Irfan as needed l #3 00:00: Prednisone Prednisone 2018-0 Yes 60mg QD C [facility]oria 00 l (LUF/LI V/SA) [place] 2017-0 Yes [place] 1 tablet Enrique elkin 1-15 Irfan as needed l 00:00: Soma 2017-0 Yes [place] 1 tablet Memor ia 1-15 Irfan as needed l 00:00: Meloxicam 2018-0 Yes [place] 1 tablet Memoria 1-15 Irfan l 00:00: [place] 2018-0 Yes [place] 1 tablet Enrique elkin 1-15 Irfan as needed l 00:00: Soma 2018-0 Yes [place] 1 tablet Memor ia 1-15 Irfan as needed l 00:00: Meloxicam 2018-0 Yes [place] 1 tablet Memoria 1-15 Irfan l 00:00: acetaminoph Yes 1{tbl} Take 1 Tab Univers [...] Observation Time Observation Value Comments Source Body height 2022-05-31 01:59:00 165.1 cm [facility] Body weight 2022-05-31 01:59:00 127.007 kg [facility] BMI 2022-05-31 01:59:00 46.59 kg/m2 [facility] [place] [facility] Oxygen saturation in 2022-05-31 01:59:00 95 /min University of Arterial blood by [facility] Pulse oximetry Branch Systolic blood 2022-05-31 01:59:00 128 mm[Hg] Univer sity of pressure [place] [facility] Diastolic blood 2022-05-31 01:59:00 81 mm[Hg] Unive rsity of pressure [place] [facility] Heart rate 2022-05-31 01:59:00 78 /min [facility] [place] [facility] Body temperature 2022-05-31 01:59:00 36.94 Amisha [facility] [place] [facility] Respiratory rate 2022-05-31 01:59:00 18 /min [facility] [place] [facility] Systolic blood 2022-05-10 02:39:00 148 [...] 2022-05-10 02:39:00 48.06 kg/m2 [facility] [place] [facility] Oxygen saturation in 2022-05-10 02:39:00 95 /min University of Arterial blood by [facility] Pulse oximetry Branch Body weight 2022-04-23 20:11:00 133.131 kg [facility] [place] [facility] BMI 2022-04-23 20:11:00 50.38 kg/m2 [facility] [place] [facility] Systolic blood 2022-04-23 20:09:00 140 mm[Hg] Univer sity of pressure [place] [facility] Diastolic blood 2022-04-23 20:09:00 81 mm[Hg] Unive rsity of pressure [place] [facility] Heart rate 2022-04-23 20:09:00 66 /min Universi ty [facility] Body temperature 2022-04-23 20:09:00 36.72 Amisha [facility] rate 2022-04-23 20:09:00 17 /min [facility] Body height 2022-04-23 20:09:00 162.6 cm [facility] Oxygen saturation in 2022-04-23 20:09:00 97 /min University of Arterial blood by [facility] Pulse oximetry Branch Systolic blood 2022-06-18 15:20:24 157 mm[Hg] Method ist Hospital pressure Diastolic blood 2022-06-18 15:20:24 74 [facility]Hg[facility] Heart rate 2022-06-18 15:20:24 53 /min [facility] Body temperature 2022-06-18 15:20:24 36.78 Amisha [facility] Respiratory rate 2022-06-18 15:20:24 16 /min [facility] Oxygen saturation in 2022-06-18 15:20:24 97 /min [facility] Arterial blood by Pulse oximetry Body height 2022-06-18 12:48:00 162.6 cm [facility] Body weight 2022-06-18 12:48:00 127.007 kg [facility] BMI 2022-06-18 12:48:00 48.06 kg/m2 [facility] Systolic blood 2022-05-21 00:33:00 132 mm[Hg] Method is Hospital pressure Diastolic blood 2022-05-21 00:33:00 64 mm[Hg] [facility] Hospital pressure Heart rate 2022-05-21 00:33:00 64 /min [facility] Oxygen saturation in 2022-05-21 00:33:00 98 /min [facility] Arterial blood by Pulse oximetry Body temperature 2022-05-20 23:53:12 36.17 Amisha [facility] Respiratory rate 2022-05-20 23:53:12 18 /min [facility] Body height 2022-05-20 23:52:00 162.6 cm [facility] Body weight 2022-05-20 23:52:00 127.007 kg [facility] BMI 2022-05-20 23:52:00 48.06 kg/m2 [facility] Weight 2017-10-25 15:00:00 [facility] Height 2017-10-25 15:00:00 [facility] Temperature Oral (F) 2017-10-25 15:00:00 97.8 F [facility] Heart Rate 2017-10-25 15:00:00 [facility] Diastolic (mm Hg) 2017-10-25 15:00:00 Mem o[facility] [place] Systolic (mm Hg) 2017-10-25 15:00:00 Enriqeu rial [facility] Body Temperature 2017-10-21 12:00:00 97.5 F [facility] (LUF/BLANCA/SA) Respiratory Rate 2017-10-21 12:00:00 20 /min [facility] (LUF/BLANCA/SA) O2% BldC Oximetry 2017-10-21 12:00:00 98 % [facility] (LUF/BLANCA/SA) BP Systolic 2017-10-21 12:00:00 132 mm[Hg] [facility] (LUF/BLANCA/SA) BP Diastolic 2017-10-21 12:00:00 78 mm[Hg] [facility] (LUF/BLANCA/SA) Height 2017-10-21 12:00:00 64 in [facility] (LUF/BLANCA/SA) Weight Measured 2017-10-21 12:00:00 282.19 lbs [facility] (LUF/BLANCA/SA) BMI (Body Mass 2017-10-21 12:00:00 48.7 [facility]) [facility] (LUF/BLANCA/SA) Weight 2017-10-08 15:45:00 [facility] [place] Height 2017-10-08 15:45:00 [facility] [place] Temperature Oral (F) 2017-10-08 15:45:00 96.8 F [facility] [place] Heart Rate 2017-10-08 15:45:00 [facility] [place] Diastolic (mm Hg) 2017-10-08 15:45:00 Mem orial [place] Systolic (mm Hg) 2017-10-08 15:45:00 Enrique rial [place] Procedures Procedure Date / Time Performing Clinician Source Performed CT MAXILLOFACIAL WO 2022-06-18 14:48:32 Frida Patton [facility] CONTRAST CONSENT/REFUSAL FOR 2022-05-31 01:55:15 Doctor Unassigned, No [facility] [place] DI[facility]NOSIS [facility] TREATMENT Name Medical Branch CT CERVICAL SPINE WO 2022-05-21 01:24:51 [facility] CONTR[facility] CT HEAD WO CONTRAST 2022-05-21 01:15:40 [facility] POC GLUCOSE 2022-05-21 00:33:00 [facility] NOTICE OF PRIVACY 2022-05-10 02:37:04 Doctor Unassigned, No [facility] [place] PRACTICES Name Medical Branch CONSENT/REFUSAL FOR 2022-05-10 02:35:02 Doctor Unassigned, No [facility] [place] [facility] Name Medical Branch CONSENT/REFUSAL FOR 2022-04-23 20:00:28 Doctor Unassigned, No [facility] [place] DIAGNOSIS AND TREATMENT Name Medical Branch Plan of Care Planned Activity Planned Date Details Comments Source Future Scheduled 2022-09-08 [facility] 15:04:49 screening (procedure) [code = 958811168] Future Scheduled 2022-09-08 COVID-19 VACCINE ([facility] 15:04:49 - Booster for Pfizer series) [code = COVID-19 VACCINE (3 - Booster for Pfizer series)] Future Scheduled 2022-09-08 INFLUENZA VACCINE [facility] Test 15:04:49 [code = INFLUENZA VACCINE] Future Scheduled 2022-06-18 [facility] B [facility] 09:25:33 VACCINES (1 of 3 - 3-dose series) [code = HEPATITIS B VACCINES (1 of 3 - 3-dose series)] Future Scheduled 2022-06-18 [facility] 09:25:33 screening (procedure) [code = 412146542] Future Scheduled 2022-06-18 COVID-19 VACCINE (3 Meth [facility] Test 09:25:33 - Booster for Pfizer series) [code = COVID-19 VACCINE (3 - Booster for Pfizer series)] Future Scheduled 2022-06-18 INFLUENZA VACCINE [facility] Test 09:25:33 [code = INFLUENZA VACCINE] Future Scheduled 2022-06-18 [facility] 09:25:33 VACCINES (1 of 3 - 3-dose series) [code = HEPATITIS B VACCINES (1 of 3 - 3-dose series)] Future Scheduled 2022-06-18 [facility] 09:25:33 screening (procedure) [code = 502108675] Future Scheduled 2022-06-18 COVID-19 VACCINE (3 Meth [facility] Test 09:25:33 - Booster for Pfizer series) [code = COVID-19 VACCINE (3 - Booster for Pfizer series)] Future Scheduled 2022-06-18 INFLUENZA VACCINE [facility] Test 09:25:33 [code = INFLUENZA VACCINE] Future Scheduled 2022-06-18 [facility] 09:25:33 VACCINES (1 of 3 - 3-dose series) [code = HEPATITIS B VACCINES (1 of 3 - 3-dose series)] Future Scheduled 2022-06-18 [facility] 09:25:33 screening (procedure) [code = 949532841] Future Scheduled 2022-06-18 COVID-19 VACCINE (3 [facility] Test 09:25:33 - Booster for Pfizer series) [code = COVID-19 VACCINE (3 - Booster for Pfizer series)] Future Scheduled 2022-06-18 INFLUENZA VACCINE [facility] Test 09:25:33 [code = INFLUENZA VACCINE] Future Scheduled 2022-06-09 [facility] 18:36:38 VACCINES (1 of 3 - 3-dose series) [code = HEPATITIS B VACCINES (1 of 3 - 3-dose series)] Future Scheduled 2022-06-09 [facility] 18:36:38 screening (procedure) [code = 057061405] Future Scheduled 2022-06-09 COVID-19 VACCINE (3 [facility] Test 18:36:38 - Booster for Pfizer series) [code = COVID-19 VACCINE (3 - Booster for Pfizer series)] Future Scheduled 2022-06-09 INFLUENZA VACCINE [facility] Test 18:36:38 [code = INFLUENZA VACCINE] Future Scheduled 2022-05-25 [facility] 07:52:22 VACCINES (1 of 3 - 3-dose series) [code = HEPATITIS B VACCINES (1 of 3 - 3-dose series)] Future Scheduled 2022-05-25 [facility] Test 07:52:22 screening (procedure) [code = 582410797] Future Scheduled 2022-05-25 COVID-19 VACCINE (3 Meth [facility] Test 07:52:22 - Booster for Pfizer series) [code = COVID-19 VACCINE (3 - Booster for Pfizer series)] Future Scheduled 2022-05-25 INFLUENZA VACCINE Method is Hospital Test 07:52:22 [code = INFLUENZA VACCINE] Future Scheduled 2022-05-25 [facility]IS [facility] 07:52:22 VACCINES (1 of 3 - 3-dose series) [code = HEPATITIS B VACCINES (1 of 3 - 3-dose series)] Future Scheduled 2022-05-25 [facility] Test 07:52:22 screening (procedure) [code = 150067113] Future Scheduled 2022-05-25 COVID-19 VACCINE ([facility] 07:52:22 - Booster for Pfizer series) [code = COVID-19 VACCINE (3 - Booster for Pfizer series)] Future Scheduled 2022-05-25 INFLUENZA VACCINE Method [facility] Test 07:52:22 [code = INFLUENZA VACCINE] Encounters Start End Encounter Admission Attending Care Care Encounter Source Date/Time Date/Time Type Type Clinicians Facility Department ID 2022-09-25 Outpatient [id number] Memoria 18:40:25 27L7-4Y35 D1-8E03-73E 8X7-9I03- 8 l -89BD-1A5 D-3D6ULEA91 9BD-1A5DCD Tavo [id number] 6A3 E256A3 2022-07-11 Outpatient [id number] F00D-5 Memoria 20:33:16 98T6-87NB F4-47BE-8F8 3T0-68SU- 8 l -9O6S-27Y F-91BCYM993 N1K-68LLBE Tavo [id number] FAD 309FAD 2022-07-05 Outpatient [id number] B7D1-4 Memoria 21:55:55 33S4-57E0 E6-18Z6-A75 0Q8-60C5- A l -Q47D-4E8 A-3X783YES2 53A-8D358U Tavo 01RQT7V1K F6F BA1F6F 2022-06-20 Outpatient [id number]- AJBUZ1MM-[id number] FEAA B0FE-B Memoria 20:55:03 Y04Y-7DAA 9E-4FBC-9E6 39E-4FBC- 9 l -1I40-L86 0-O70BCB622 K24-C65ZOL [place] [id number] 7B9 9867B9 2022-06-18 Outpatient [id number] [id number] 41FC-3 Memoria 07:44:31 0V83-1PTM 17-4EED-9D8 R41-4VMO- 9 l -3Z26-G2Z 1-B8CC029C2 E84-Y7ZN15 [place] [id number] A09 2A0A09 2022-06-14 Outpatient [id number] 73A9-D Memoria 22:44:21 I07W-7J08 0A-8A41-200 90A-4A19- 9 l -9064-22B 4-91G468P2R 064-03X134 [place] [id number] 120 L4W157 2022-06-08 Outpatient [id number] 4BD7-F Memoria 21:22:44 N53E-9XF9 4B-8BK3-024 44B-4BC4- 8 l -819B-E8C B-L3I11819F 19B-U4Z814 [facility] [id number] C63 53AC63 2022-06-03 Outpatient [id number]- [id number] ABCB 93A3-4 Memoria 01:33:52 4565-43DE 65-43DE-92E 565-43DE- 9 l -28G7-478 7-556UH18NE 3W6-462MM6 Tavo [id number] 217 [id number] 2022-05-30 Outpatient [id number] 114E F493-4 Memoria 20:55:52 6P57-055F 39-438E-9B8 C90-755X- 9 l -2K57-5YI 0-6ZWA1S7KY Q86-7LFY6C [facility]avo [id number] F41 4BEF41 2022-05-20 Outpatient [id number] 5C46 A21D-1 Memoria 18:55:15 1FAA-4CF3 AA-7DB3-98K FAA-4CF3- 8 l -80ED-A77 D-[id number] 0ED-A77A25 Tavo [id number] 1100-09-27 Outpatient [id number] [id number] Memoria 14:21:52 57Q3-7PGL F0-4CEA-948 3M8-7DFE- 9 l -9486-B77 6-P83YHJ4T7 486-B77BBD Tavo [id number] 4C4 1C14C4 2021-06-20 Outpatient [id number] BE16-8 Memoria 14:21:45 8434-49AE 34-49AE-95B 434-49AE- 9 l -95BD-57D D-16WQ15X3D 5BD-57DA06 Tavo [id number] 032 S7W201 2021-05-30 Outpatient [id number] [id number] Memoria 15:44:20 DAF5-4596 F5-4596-BFE AF5-4596- B l -BFE1-51A 1-34YKI85VN FE1-51ACA1 Tavo QL78CZ8SQ 1BA 9CA1BA 2020-01-20 Inpatient [facility] [id number] [facility] 15:25:00 21 [facility] 2019-12-16 Inpatient [facility] [id number] [facility] 17:49:00 32 [facility] 2019-12-12 Inpatient [facility] [id number] [facility] 08:32:00 83 [facility] 2019-11-27 Inpatient [facility] [id number] [facility] 07:33:00 06 [facility] 2022-06-18 2022-06-18 Emergency Rodolfo, 1.2.840.1 [id number] Methodi 07:52:00 10:32:[address] [facility] 3.430.2.7 [facility] .3.869513 l .8 2022-06-18 2022-06-18 Emergency Rodolfo, 1.2.840.1 [id number] Methodi 07:52:00 10:32:[address] Subhash 3.430.2.7 [facility] .3.272066 l .8 2022-05-30 2022-05-[address] [facility] ERT [id number] Univers 21:02:00 21:53:00 ALBIN ibrahim of [facility] 2022-05-30 2022-05-30 Emergency [facility] 1.2.581.282 [id number] Univers 21:02:00 21:53:00 Albin RUSSO 350.1.13.10 i ty [facility] 4.2.7.[address].686 [facility] [id number] [address] 2022-05-20 2022-05-20 Emergency Bárbara 1.2.840.1 [id number] Methodi 19:29:00 21:04:[address]cee [address]152.1.[address] 3.430.2.7 Hospit a .3.357354 l .8 2022-05-20 2022-05-20 Emergency Bárbara 1.2.840.1 [id number] Methodi 19:29:00 21:04:[address] 3.430.2.7 Hospit a .3.876597 l .8 2022-05-20 2022-05-20 Travel 1.2.840.1 1.2.555.865 [id number] Methodi 00:00:00 00:00:[address] 3.430.2.7 0.2.7.3.698 Ho spita .3.069949 084.8 l .8 2022-05-20 2022-05-20 Travel 1.2.840.1 1.2.101.393 8922 [id number] Methodi 00:00:00 00:00:[address] 3.430.2.7 0.2.7.3.698 Ho spita .3.473104 084.8 l .8 2022-05-09 2022-05-09 Emergency [facility] [id number] Univers 21:45:00 21:46:00 CHER ibrahim [facility] 2022-05-09 2022-05-09 Emergency [facility] 1.2.840.114 [id number] Univers 21:45:00 21:46:00 Cher RUSSO 350.1.13.10 ity [facility] 4.2.7.2.686 [facility] [id number] [address] 2022-04-23 2022-04-23 Emergency [facility] [id number] Univers 15:11:00 15:52:00 BO fu [facility] 2022-04-23 2022-04-23 [facility] 1.2.746.929 1655 [id number] Univers 15:11:00 15:52:00 Bo RUSSO 350.1.13.10 ity [facility] 4.2.7.2.686 [facility] [id number] [address] 2021-09-14 2021-09-14 Outpatient [place] [id number] [place] 02:13:00 02:13[place] [id number] [facility] 2021-09-08 2021-09-08 Outpatient [place]ERGUSON[place] [id number] [place] 02:19:00 02:19[place] [id number] [facility] 2017-11-01 2017-11-01 Outpatient Family Family [id number] eClinic 10:47:00 10:47:00 [facility] Clinic 2017-10-25 2017-10-25 Outpatient Family Family [id number] eClinic 09:00:00 09:00:00 [facility] Clinic 2017-10-21 2017-10-21 PAIN IN [place] [id number] 11:51:00 14:48:00 THORACIC BETHANY [facility] SPINE N 2017-10-21 2017-10-21 PAIN IN [place], [facility] [id number] [facility] 11:51:00 14:48:00 THORACIC [facility] N, [address], ([place] [address] 2017-10-08 2017-10-08 Outpatient Family Family [id number] [facility] 09:45:00 09:45:00 [facility] Clinic Results Test Description Test Time Test Comments Results Result Comments Source POC glucose 2022-05-21 00:34:00 Test Item Value Reference Range Interpretation Comme nts POC glucose (test code = 25993-8) 217 mg/dL 65-100 H Industrial Sales Engineer Name: Zach Avery ID: [id number] Lab Interpretation (test code = Abnormal 03904-3) [facility] [id number] 00:34:00 Test Item Value Reference Range Interpretation Comments POC glucose (test code = 217 mg/dL 65-100 H Ope rator Name: Zach [id number]) [employer] ID: [id number] Lab Interpretation (test Abnormal code = 95018-5) [facility] [id number] 00:34:00 Test Item Value Reference Range Interpretation Comments POC glucose (test code = 217 mg/dL 65-100 H Ope rator Name: Zach [id number]) [employer] ID: [id number] Lab Interpretation (test Abnormal code = 72439-6) [facility] [id number] 00:34:00 Test Item Value Reference Range Interpretation Comments POC glucose (test code = 217 mg/dL 65-100 H Ope rator Name: Zach [id number]) [employer] ID: [id number] Lab Interpretation (test Abnormal code = 72009-4) [facility] [id number] 00:34:00 Test Item Value Reference Range Interpretation Comments POC glucose (test code = 217 mg/dL 65-100 H Ope rator Name: Zach Johnston) BinosDevice ID: [id number] Lab Interpretation (test Abnormal code = 10911-4) [facility] [id number] 00:34:00 Test Item Value Reference Range Interpretation Comments POC glucose (test code = 217 mg/dL 65-100 H Ope rator Name: Zach Johnston) BinosDevice ID: [id number] Lab Interpretation (test Abnormal code = 28581-3) [facility] [id number] 00:34:00 Test Item Value Reference Range Interpretation Comments POC glucose (test code = 217 mg/dL 65-100 H Ope rator Name: Zach Johnston) BinosDevice ID: [id number] Lab Interpretation (test Abnormal code = 59174-3) [facility] HEAD/BRAIN W/O [id number] 18:19:00 Patient Name: VIMAL BARROSO Unit No: [id number] EXAMS: CPT CODE: [id number] CT HEAD/BRAIN W/O CONT 32893 CLINICAL INFORMATION: Moderate frontal headaches. Coughing. Dictation [...] event identified. at 1819 Reported and signed by:Deepak Tee MD CC: Germania Engel NP Dictated Date/Time: 12/16/2019 (1818) Technologist: Ibis Mata - Agency CTDI: 45.04 DLP: 757.79 Trnscrpt: 12/16/2019 (1818) Barbara LORETA Lopez NAME: VIMAL BARROSO [address] [place] [address] PHYS: Germania [place] [address] : 1975 AGE: 44 SEX: M LOC: EMILY PHONE #: [phone] EXAM DATE: 12/16/2019 STATUS: PRE ER FAX #: [phone] RAD #: D/C DT PAGE 1 Signed Report Patient Name: VIMAL BARROSO Unit No: [id number] EXAMS: CPT CODE: [id number] CT HEAD/BRAIN W/O CONT 63529 (Continued) Orig Print D/T: S: 12/16/2019 (1821) LORETA Lopez NAME: VIMAL BARROSO [address] [place] [address] PHYS: Germania Isaacs [place] [address] : 1975 AGE: 44 SEX: M LOC: Dayron.ERS PHONE #: [phone] EXAM DATE: 12/16/2019 STATUS: PRE ER FAX #: [phone] RAD #: D/C DT PAGE 2 Signed Report- XR CHEST 2 [id number] 09:11:00 FAX: EngelGermania NP [phone] [place]: E St: REG Patient Name: VIMAL BARROSO Unit No: [id number] EXAMS: CPT CODE: [id number] XR CHEST 2 V 55618 - XR CHEST 2 V LOCATION: T18 INDICATION:Cough The lungs are well expanded and free of infiltrates. The costophrenic recesses are sharp without effusion. The heart, mediastinum and bony structures are within normal limits. Cervical spine fusion plate noted. IMPRESSION: No activedisease. at 0911 Reported and signed by: Zach Rubi D.O. CC: Germania Engel BREAK AND LOAD OPERATOR Dictated Date/Time: 12/12/2019 (910)Technologist: Shannan Schmitz Transcribed Date/Time: 12/12/2019 (910) By: Joanna Orig Print D/T: S: 12/12/2019 (913) LORETA Lopez NAME: VIMAL BARROSO [address] [place] [address] PHYS: KELLY Vargas ToroGermania [facility] [place] [address] : 1975 AGE: 44 SEX: M LOC: B.ERS PHONE #: [phone] EXAM DATE: 12/12/2019 STATUS: REG ER FAX #: [phone] RAD NO: DC Dt: PAGE 1 Signed ReportSPINE LUMBAR [id number] 13:37:00[place]APTEdward [place] [id number] IMAGING REPORTPatient Name: Lili BARROSO of Service: [id number]: 41 Sex: M Order #: [id number] [facility] 1975 [facility] Number: [id number] Record Number: [id number] Hospital Number: [id number] Physician: Agatha CROW Physician: RUBY TREVIÑO LUMBAR [...]
--- NOTE | 2022-09-25 19:58 | EDPHYS ---
Physician Documentation [facility] Name: Ruben Alamo Age: 46 yrs Sex: Male : 1975 Arrival Date: 09/25/2022 Time: 18:40 Bed DIS3 Private MD: SERENITY Physician Mynor White HPI: 09/25 19:45 This 46 yrs old Black Male presents to ER via Ambulatory with complaints of Headache, geovanny Toothache. 19:45 The patient complains of pain to the left ear, left cheek and left baptism. The patient geovanny describes the headache as aching. Onset: The symptoms/episode began/occurred 2 day(s) ago. Associated signs and symptoms: The patient has no apparent associated signs or symptoms. Severity of symptoms: At its worst the pain was mild, in the emergency department the pain is unchanged. Headache History: The patient has had previous headaches and this one is similar to previous episodes. The symptoms are alleviated by remaining still, the symptoms are aggravated by foods, movement. The patient has experienced similar episodes in the past, a few times. Historical: - Allergies: 19:32 Iodine; vc1 19:32 PENICILLINS; vc1 19:32 SHELLFISH; vc1 - PMHx: 19:32 Chronic pain; vc1 - PSHx: 19:32 facial reconstruction; Spinal surgery; vc1 - Immunization history:: Client reports receiving the 2nd dose of the Covid vaccine. - Social history:: Smoking status: Patient denies any tobacco usage or history of. - Family history:: not pertinent. ROS: 19:45 Constitutional: Negative for fever, chills, and weight loss, Eyes: Negative for injury, geovanny pain, redness, and discharge, Neck: Negative for injury, pain, and swelling, Cardiovascular: Negative for chest pain, palpitations, and edema, Respiratory: Negative for shortness of breath, cough, wheezing, and pleuritic chest pain, Abdomen/GI: Negative for abdominal pain, nausea, vomiting, diarrhea, and constipation, Back: Negative for injury and pain, : Negative for injury, bleeding, discharge, and swelling, MS/Extremity: Negative for injury and deformity, Skin: Negative for injury, rash, and discoloration, Neuro: Negative for headache, weakness, numbness, tingling, and seizure, Psych: Negative for depression, anxiety, suicide ideation, homicidal ideation, and hallucinations, Allergy/Immunology: Negative for hives, rash, and allergies, Endocrine: Negative for neck swelling, polydipsia, polyuria, polyphagia, and marked weight changes, Hematologic/Lymphatic: Negative for swollen nodes, abnormal bleeding, and unusual bruising. 19:45 ENT: Positive for dental pain. Exam: 19:45 Constitutional: This is a well developed, well nourished patient who is awake, alert, geovanny and in no acute distress. Head/Face: Normocephalic, atraumatic. Eyes: Pupils equal round and reactive to light, extra-ocular motions intact. Lids and lashes normal. Conjunctiva and sclera are non-icteric and not injected. Cornea within normal limits. Periorbital areas with no swelling, redness, or edema. Neck: Trachea midline, no thyromegaly or masses palpated, and no cervical lymphadenopathy. Supple, full range of motion without nuchal rigidity, or vertebral point tenderness. No Meningismus. Chest/axilla: Normal chest wall appearance and motion. Nontender with no deformity. No lesions are appreciated. Cardiovascular: Regular rate and rhythm with a normal S1 and S2. No gallops, murmurs, or rubs. Normal PMI, no JVD. No pulse deficits. Respiratory: Lungs have equal breath sounds bilaterally, clear to auscultation and percussion. No rales, rhonchi or wheezes noted. No increased work of breathing, no retractions or nasal flaring. Abdomen/GI: Soft, non-tender, with normal bowel sounds. No distension or tympany. No guarding or rebound. No evidence of tenderness throughout. Back: No spinal tenderness. No costovertebral tenderness. Full range of motion. Male : Normal genitalia with no discharge or lesions. Skin: Warm, dry with normal turgor. Normal color with no rashes, no lesions, and no evidence of cellulitis. MS/ Extremity: Pulses equal, no cyanosis. Neurovascular intact. Full, normal range of motion. Neuro: Awake and alert, GCS 15, oriented to person, place, time, and situation. Cranial nerves II-XII grossly intact. Motor strength 5/5 in all extremities. Sensory grossly intact. Cerebellar exam normal. Normal gait. Psych: Awake, alert, with orientation to person, place and time. Behavior, mood, and affect are within normal limits. 19:45 ENT: Mouth: Gums: reddened, Tongue: is normal, abscess, is not appreciated, drooling, is not appreciated, Posterior pharynx: is normal, airway is patent, no erythema, no exudate, no peritonsilar mass, no pooling of secretions, no swelling, normal tonsil apperance, normal sized tonsils, normal uvula appearance, normal uvula size, Dental exam: dental caries, that is moderate, diffusely, pain, that is mild, specifically in the upper left second molar (#15) and upper left third molar (#16). Vital Signs: 19:29 Pulse 60; Resp 18; Temp 97.4; Pulse Ox 98% ; Weight 131.54 kg; Height 5 ft. 4 in. vc1 (162.56 cm); Pain 8/10; 19:35 BP 148 / 76; vc1 19:29 Body Mass Index 49.78 (131.54 kg, 162.56 cm) vc1 Sherlyn Coma Score: 19:51 Eye Response: spontaneous(4). Verbal Response: oriented(5). Motor Response: obeys geovanny commands(6). Total: 15. MDM: 19:16 Patient medically screened. geovanny 19:51 Differential diagnosis: migraine, otitis. Data reviewed: vital signs, nurses notes. geovanny Data interpreted: monitor and storage bin tender: not applicable for this patient encounter. rate is 98 beats/min, rhythm is regular, Pulse oximetry: on room air is 98 %. Counseling: I had a detailed discussion with the patient and/or guardian regarding: the historical points, exam findings, and any diagnostic results supporting the discharge/admit diagnosis, the need for outpatient follow up, for definitive care, a dentist. Administered Medications: 20:12 Drug: KeFLEX (cephalexin) 500 mg Route: PO; vc1 20:12 Drug: Motrin (ibuprofen) 800 mg Route: PO; vc1 Disposition Summary: 09/25/22 19:57 Discharge Ordered Location: Home geovanny Problem: new geovanny Symptoms: have improved geovanny Condition: Stable geovanny Diagnosis - Dental caries, unspecified - pain geovanny Followup: geovanny - With: Private Physician - When: 2 - 3 days - Reason: Recheck today's complaints, Continuance of care, Re-evaluation by your physician Followup: geovanny - With: Huan Roth DDS - When: 2 - 3 days - Reason: Recheck today's complaints, Continuance of care, Re-evaluation by your physician Discharge Instructions: - Discharge Summary Sheet geovanny - Dental Caries, Adult geovanny - Dental Pain geovanny - Dental Pain, [id number] geovanny - Diet and Dental Disease geovanny Forms: - Medication Reconciliation Form geovanny - Thank You Letter geovanny - Antibiotic Education geovanny - Prescription Opioid Use [facility] Prescriptions: - Cephalexin 500 mg Oral Capsule - take 1 capsule by ORAL route every 6 hours for 7 days; 29 capsule; Refills: 0, [facility] Product Selection Permitted - Ibuprofen 600 mg Oral Tablet - take 1 tablet by ORAL route every 6 hours As needed take with food; 20 tablet; [facility] Refills: 0, Product Selection Permitted Signatures: Mynor White MD MD cha Calcote, Vanessa RN RN vc1
--- NOTE | 2022-09-25 19:58 | ER ---
Nurse's Notes [facility] Name: Ruben Alamo Age: 46 yrs Sex: Male : 1975 Arrival Date: 09/25/2022 Time: 18:40 Bed DIS3 Private MD: Diagnosis: Dental caries, unspecified-pain Presentation: 09/25 19:29 Chief complaint: Patient states: "My back 2nd from back on left at the top tooth vc1 hurts.". Coronavirus screen: Vaccine status: Patient reports receiving the 2nd dose of the covid vaccine. Pfizer. Ebola Screen: No symptoms or risks identified at this time. Initial Sepsis Screen: Does the patient meet any 2 criteria? No. Patient's initial sepsis screen is negative. Does the patient have a suspected source of infection? No. Patient's initial sepsis screen is negative. Risk Assessment: Do you want to hurt yourself or someone else? Patient reports no desire to harm self or others. Onset of symptoms was September 20, 2022. 19:29 Method Of Arrival: Ambulatory [facility] 19:29 Acuity: LIZBETH 5 vc1 Triage Assessment: 19:33 Headache History: The patient has had previous headaches and this one is similar to vc1 previous episodes. General: Appears in no apparent distress. Behavior is calm, cooperative, appropriate for age. Pain: Complains of pain in tooth and headache Pain currently is 8 out of 10 on a pain scale. Pain began gradually, Also complains of headache. EENT: Reports tooth pain. Neuro: Arnold Agitation-Sedation Scale (RASS): 0 - Alert and Calm Level of Consciousness is awake, alert, obeys commands, Oriented to person, place, time, situation, Appropriate for age. Cardiovascular: No deficits noted. Reports. Respiratory: Airway is patent Respiratory effort is even, unlabored, Respiratory pattern is regular, symmetrical. GI: No deficits noted. No signs and/or symptoms were reported involving the gastrointestinal system. : No deficits noted. No signs and/or symptoms were reported regarding the genitourinary system. Derm: No deficits noted. No signs and/or symptoms reported regarding the dermatologic system. Musculoskeletal: No deficits noted. No signs and/or symptoms reported regarding the musculoskeletal system. Historical: - Allergies: 19:32 Iodine; vc1 19:32 PENICILLINS; vc1 19:32 SHELLFISH; vc1 - PMHx: 19:32 Chronic pain; vc1 - PSHx: 19:32 facial reconstruction; Spinal surgery; vc1 - Immunization history:: Client reports receiving the 2nd dose of the Covid vaccine. - Social history:: Smoking status: Patient denies any tobacco usage or history of. - Family history:: not pertinent. Screenin:32 Abuse screen: Denies threats or abuse. Nutritional screening: No deficits noted. vc1 Tuberculosis screening: No symptoms or risk factors identified. 19:34 [facility] ED Fall Risk Assessment (Adult) History of falling in the last 3 months, vc1 including since admission No falls in past 3 months (0 pts) Confusion or Disorientation No (0 pts) Intoxicated or Sedated No (0 pts) Impaired Gait No (0 pts) Mobility Assist Device Used No (0 pt) Altered Elimination No (0 pt) Score/Fall Risk Level 0 - 2 = Low Risk. Vital Signs: 19:29 Pulse 60; Resp 18; Temp 97.4; Pulse Ox 98% ; Weight 131.54 kg; Height 5 ft. 4 in. vc1 (162.56 cm); Pain 8/10; 19:35 BP 148 / 76; vc1 19:29 Body Mass Index 49.78 (131.54 kg, 162.56 cm) vc1 Hardy Coma Score: 19:51 Eye Response: spontaneous(4). Verbal Response: oriented(5). Motor Response: obeys geovanny commands(6). Total: 15. ED Course: 18:40 Patient arrived in ED. mr 19:15 Mynor White MD is Attending Physician. geovanny 19:32 Triage completed. vc1 19:33 Arm band placed on right wrist. vc1 19:54 Huan Roth DDS is Referral Physician. geovanny 20:11 Kasie Soliman, ANAHI is Primary Nurse. vc1 20:11 No provider procedures requiring assistance completed. Patient did not have IV access vc1 during this emergency room visit. Administered Medications: 20:12 Drug: KeFLEX (cephalexin) 500 mg Route: PO; vc1 20:12 Drug: Motrin (ibuprofen) 800 mg Route: PO; vc1 Medication: 19:34 VIS not applicable for this client. vc1 Outcome: 19:57 Discharge ordered by . geovanny 20:11 Discharged to home ambulatory. vc1 20:11 Condition: good 20:11 Discharge instructions given to patient, Instructed on discharge instructions, follow up and referral plans. medication usage, Demonstrated understanding of instructions, follow-up care, medications, Prescriptions given X 2. 20:12 Patient left the ED. vc1 Signatures: Mynor White MD MD cha Rivera, Mary mr Calcote, Vanessa, RN RN vc1
[2022-09-25] MEDS ORDERED: IBUPROFEN 400 MG TAB ONE (20:11)
[2022-09-25] MEDS ORDERED: CEPHALEXIN 250 MG CAP ONE (20:11)
[2022-09-25 20:19] VITALS: TEMP 97.4; O2SAT 98
[2022-09-25 20:20] VITALS: BP 148/76
== END 2022-09-25 20:12 | disposition home or self-care (01) ==
LOC: ER 18:37
DX: K02.9 Dental caries, unspecified (principal); R51.9 Headache, unspecified
CPT/HCPCS: 99283

== ENCOUNTER 2022-10-16 06:45 | Emergency (ER) | payer SELFPAY ==
--- OUTSIDE RECORDS SUMMARY | 2022-10-16 06:49 | XMS REPORT | Continuity of Care Document ---
:1975 Author Organization [facility] t Address [address] [place] [address] Care Team Providers Name Role Phone Asked, No Pcp Primary Care Physician Unavailable Arjun Reynolds MD Attending Clinician [phone] ALBIN ROSAS Attending Clinician Unavailable Albin [...] Policy Number Effective Date Expiration Date S leonie Problems Condition Condition Condition Status Onset Resolution Last Treating Co mments Source Name Details Category Date Date Treatment Clinician Date Backache Backache Problem [facility] l (LUF/LI V/SA) No known No known Disease Unive rs active active ity of problems problems [facility] Lumbago Lumbago Problem Active 2017-11-07 M emoria with with 03:47:18 l sciatica, sciatica, Herm marcus left side left side Active Problem 11/07/2017 Family Diagnostic Body mass Body mass Problem Active 2017-11-07 Memoria index index 03:47:18 l (BMI) (BMI) [place] 45.0-49.9, 45.0-49.9, adult adult Active Problem 11/07/2017 [...] 8-16 ity of DERIVED 00:00: [place] 00 [facility] Branch Shellfis Propensi Active Unknown - Uni vers h ty to See comments 816 ity of Derived adverse 00:00: [place] reaction 00 Medical s Branch No Known DA Active U [facility]05 [place] s 00:[facility]: [facility] No Known DA Active U [facility]05 [place] s 00:00: Region Count includes the [facility] NO KNOWN Drug Active Univers ALLERGIE Class ity of S [place] [facility] [place] Social History Social Habit Start Date Stop Date Quantity Comments Source Tobacco use and 2022-06-18 2022-06-18 Smokeless tobacco [facility] exposure 00:00:00 00:00:00 non-user Exposure to 2022-05-20 2022-05-30 Not sure [facility] SARS-CoV-2 00:00:00 20:57:00 [facility] (event) Branch Sex Ass[birth year] At [birth year] [facility] 00:00:00 00:00:00 Smoking Status Start Date Stop Date Source Tobacco smoking consumption unknown [facility] Never smoked tobacco [facility]ital Medications Ordered Filled Start Stop Current [...] every other day for 7 days. carBAMazepi 2021-2021- No Take 1 Met hodi ne XR -25 10-[address] (TEGretol 00:00: 04:59 (200 [...] food) for up to 7 days. diclofenac 2021-2021- No 50mg Q.5D Take 1 Meth willi [...] food) for up to 7 days. diclofenac 0 2021- No 50mg Q.5D Take 1 Meth [...] to 7 days. lidocaine 2021- No 4mL Q.[id number] Apply 4 mL Methodi HCL 06-[id number] (lidocaine) 00:00: 04:59 3D 3 (three) Hospita 2 % 00 :00 times a l solution day for 3 days. Apply to cottonball and place it by toothache lidocaine 2021- No 4mL Q.[id number] Apply 4 mL Methodi HCL 06-[id number] (lidocaine) 00:00: 04:59 3D 3 (three) Hospita 2 % 00 :00 times a l solution day for 3 days. Apply to cotton[place] and place it by toothache lidocaine 2021- No 4mL Q.[id number] Apply 4 mL Methodi HCL 06-[id number] (lidocaine) 00:00: 04:59 3D 3 (three) Hospita 2 % 00 :00 times a l solution day for 3 days. Apply to cottonball and place it by toothache lidocaine 2021- No 4mL Q.[id number] Apply 4 mL Methodi HCL 06-[id number] (lidocaine) 00:00: 04:59 3D 3 (three) Hospita 2 % 00 :00 times a l solution day for 3 days. Apply to cotton[place] and place it by toothache lidocaine 2021- No 4mL Q.[id number] Apply 4 mL Methodi HCL 06-[id number] (lidocaine) 00:00: 04:59 3D 3 [...] 1 at 2130, tablet CHRISTINA butalbital- Yes [id number] 1{tbl} Take 1 Univers acetaminoph 9-06 tablet [...] up to 30 days. ondansetron 2021-0 2021- No 4mg Q8H Take 1 Met hodi ODT 05-20 tablet (4 st (ZOFRAN-ODT 00:00: 04:59 mg total) Hospita ) 4 MG 00 :00 by mouth l disintegrat every 8 ing tablet (eight) hours as needed for nausea or vomiting for up to 30 days. ondansetron 2021-0 2021- No 4mg Q8H Take 1 Met hodi ODT 05-20 tablet (4 st (ZOFRAN-ODT 00:00: 04:59 mg total) Hospita ) 4 MG 00 :00 by mouth l disintegrat every 8 ing tablet (eight) hours as needed for nausea or vomiting for up to 30 days. ondansetron 2021-0 2021- No 4mg Q8H Take 1 Met hodi ODT 05-20 tablet (4 st (ZOFRAN-ODT 00:00: 04:59 mg total) Hospita ) 4 MG 00 :00 by mouth l disintegrat every 8 ing tablet (eight) hours as needed for nausea or vomiting for up to 30 days. ondansetron 2021-0 2022- No 4mg Q8H Take 1 Met hodi ODT 806-20 tablet (4 st (ZOFRAN-ODT 00:00: 04:59 mg total) Hospita ) 4 MG 00 :00 by mouth l disintegrat every 8 ing tablet (eight) hours as needed for nausea or vomiting for up to 30 days. ondansetron 2021-0 2022- No 4mg Q8H Take 1 Met hodi ODT 05-20- tablet (4 st (ZOFRAN-ODT 00:00: 04:59 mg [...] 30 days. LISINOPRIL 0 Yes Take by [facility] ers ORAL 8-16 mouth. ity of 21:45: [address] HYDROcodone 0 Yes 1{tbl} Take 1 Un butch -acetaminop 8-16 tablet by ity of hen (NORCO) 21:45: mouth [place] 10-325 mg 20 every 6 Medical tablet (six) Branch hours as needed. LISINOPRIL 0 Yes Take by [facility] ers ORAL 8-16 mouth. ity of 21:45: [address] HYDROcodone 2021-0 Yes 1{tbl} Take 1 Un butch -acetaminop 8-16 tablet by ity of hen (NORCO) 21:45: mouth [place] 10-325 mg 20 every 6 Medical tablet (six) Branch hours as needed. ketorolac 2021- No 30mg 30 mg, Unive rs (TORADOL) 04-23 Intramuscu ity of injection 21:15: 09:14 lar, ONCE, [place] 30 mg 00 :00 1 dose, On [facility] Branch 04/23/22 at 1615, Routine metoclopram 2021- No 10mg 10 mg, Uni vers darren HCl 04-23 Intramuscu ity o f (REGLAN) 20:15: 20:45 [place] injection 00 :00 1 dose, On Medi shannan 10 mg [place] Branch 04/23/22 at 1515, CHRISTINA Hydrocodone 0 Yes [place] 1 tablet Memoria -Acetaminop 2-14 Irfan as needed l hen 03:47: [place] Carisoprodo 0 Yes [place] 1 tablet Memoria l 2-14 Irfan as needed l 03:47: [place] Meloxicam 0 Yes [place] 1 tablet Memoria 2-14 Irfan l 03:47: [place] Hydrocodone 2017-0 Yes [place] 1 tablet Memoria -Acetaminop 2-14 Irfan as needed l hen 03:47: [place] Carisoprodo 0 Yes [place] 1 tablet Memoria [...] Memoria 2-14 Irfan l 03:47: [place] Acetaminoph 0 Yes [place] 1 tablet Memoria en-Codeine 2-01 Irfan as needed l #3 00:00: [place] 00 Acetaminoph 2017-0 Yes [place] 1 tablet Memoria en-Codeine 2-01 Irfan as needed l #3 00:00: [place] 00 Acetaminoph 2017-0 Yes [place] 1 tablet Memoria en-Codeine 2-01 Irfan as needed l #3 00:00: Prednisone Prednisone 0 Yes 60mg QD [facility] Memoria 00 l (LUF/LI V/SA) [place] 0 Yes [place] 1 tablet Enrique elkin 1-15 Irfan as needed l 00:00: Soma 2018-0 Yes [place] 1 tablet Memor ia 1-15 Irfan as needed l 00:00: Meloxicam 2018-0 Yes [place] 1 tablet Memoria 1-15 Irfan l 00:00: Rigby 2018-0 Yes [place] 1 tablet Enrique elkin 1-15 Irfan as needed l 00:00: Soma 2018-0 Yes [place] 1 tablet Memor ia 1-15 Irfan as needed l 00:00: Meloxicam 2018-0 Yes [place] 1 tablet Memoria 1-15 Irfan l 00:00: Rigby 2018-0 Yes [place] 1 tablet Enrique elkin [...] Systolic blood 2022-05-31 01:59:00 128 mm[Hg] Univer [facility] of pressure [place] [facility] Diastolic blood 2022-05-31 01:59:00 81 mm[Hg] Unive rsity of pressure [place] [facility] Heart rate 2022-05-31 01:59:00 78 /min Universi ty [facility] [place] [facility] Body temperature 2022-05-31 01:59:00 36.94 Amisha Univ ersity of [place] [facility] Respiratory rate 2022-05-31 01:59:00 18 /min Univ ers[facility] [place] [facility] Body height 2022-05-31 01:59:00 165.1 cm [facility] [place] [facility] Body weight 2022-05-31 01:59:00 127.007 kg [facility] [place] [facility] BMI 2022-05-31 01:59:00 46.59 kg/m2 [facility]i ty [facility] [place] [facility] Oxygen saturation in 2022-05-31 01:59:00 95 /min University of Arterial blood by [place] shannan Pulse oximetry Branch Systolic blood 2022-05-10 02:39:00 148 mm[Hg] Univer sity of pressure [place] [facility] Diastolic blood 2022-05-10 02:39:00 84 mm[Hg] Unive rsity of pressure [place] [facility] Heart rate 2022-05-10 02:39:00 70 /min [facility]i [facility] [place] [facility] Body temperature 2022-05-10 02:39:00 37.56 Amisha [facility] [place] [facility] Respiratory rate 2022-05-10 02:39:00 18 /min Univ [facility] [place] [facility] Body height 2022-05-10 02:39:00 162.6 cm [facility] [place] [facility] Body weight 2022-05-10 02:39:00 127.007 kg [facility] [place] [facility] BMI 2022-05-10 02:39:00 48.06 kg/m2 [facility] [place] [facility] Oxygen saturation in 2022-05-10 02:39:00 95 /min University of Arterial blood by [employer] shannan Pulse oximetry Branch Body weight 2022-04-23 20:11:00 133.131 kg [facility] [place] [facility] BMI 2022-04-23 20:11:00 50.38 kg/m2 [facility] [place] [facility] Systolic blood 2022-04-23 20:09:00 140 mm[Hg] Univer sity of pressure [place] [facility] Diastolic blood 2022-04-23 20:09:00 81 mm[Hg] Unive rsity of pressure [facility] Heart rate 2022-04-23 20:09:00 66 /min Universi ty [facility] Body temperature 2022-04-23 20:09:00 36.72 Amisha Univ ersity of [facility] Respiratory rate 2022-04-23 20:09:00 17 /min Univ ersity [facility] Body height 2022-04-23 20:09:00 162.6 cm Universi ty [facility] Oxygen saturation in 2022-04-23 20:09:00 97 /min University of Arterial blood by [facility] Pulse oximetry [place] Systolic blood 2022-06-18 15:20:24 157 mm[Hg] Method [facility] pressure Diastolic blood 2022-06-18 15:20:24 74 mm[Hg] [facility] pressure Heart rate 2022-06-18 15:20:24 53 /min [facility] Body temperature 2022-06-18 15:20:24 36.78 Amisha [facility] Respiratory rate 2022-06-18 15:20:24 16 /min [facility] Oxygen saturation in 2022-06-18 15:20:24 97 /min [facility] Arterial blood by Pulse oximetry Body height 2022-06-18 12:48:00 162.6 cm [facility] Body weight 2022-06-18 12:48:00 127.007 kg [facility] BMI 2022-06-18 12:48:00 48.06 kg/m2 [facility] Systolic blood 2022-05-21 00:33:00 132 mm[Hg] Method [facility] pressure Diastolic blood 2022-05-21 00:33:00 64 mm[Hg] [facility] pressure Heart rate 2022-05-21 00:33:00 64 /min [facility] Oxygen saturation in 2022-05-21 00:33:00 98 /min [facility] Arterial blood by Pulse oximetry Body temperature 2022-05-20 23:53:12 36.17 Amisha [facility] Respiratory rate 2022-05-20 23:53:12 18 /min [facility] Body height 2022-05-20 23:52:00 162.6 cm [facility] Body weight 2022-05-20 23:52:00 127.007 kg [facility] BMI 2022-05-20 23:52:00 48.06 kg/m2 [facility] Weight 2017-10-25 15:00:00 [facility] [place] Height 2017-10-25 15:00:00 [facility] [place] Temperature Oral (F) 2017-10-25 15:00:00 97.8 F [facility] [place] Heart Rate 2017-10-25 15:00:00 [facility] [place] Diastolic (mm Hg) 2017-10-25 15:00:00 Mem orial [place] Systolic (mm Hg) 2017-10-25 15:00:00 Enrique rial [place] Body Temperature 2017-10-21 12:00:00 97.5 F [facility] (LUF/BLANCA/SA) Respiratory Rate 2017-10-21 12:00:00 20 /min [facility] (F/BLANCA/SA) O2% BldC Oximetry 2017-10-21 12:00:00 98 % [facility] (LUF/BLANCA/SA) BP Systolic 2017-10-21 12:00:00 132 mm[Hg] [facility] (LUF/BLANCA/SA) BP Diastolic 2017-10-21 12:00:00 78 mm[Hg] [facility] (LUF/BLANCA/SA) Height 2017-10-21 12:00:00 64 in [facility] (LUF/BLANCA/SA) Weight Measured 2017-10-21 12:00:00 282.19 lbs [facility] (LUF/BLANCA/SA) BMI (Body Mass 2017-10-21 12:00:00 48.7 [facility] (LUF/BLANCA/SA) Weight 2017-10-08 15:45:00 [facility] [place] Height 2017-10-08 15:45:00 [facility] [place] Temperature Oral (F) 2017-10-08 15:45:00 96.8 F [facility] Heart Rate 2017-10-08 15:45:00 [facility] [place] Diastolic (mm Hg) 2017-10-08 15:45:00 Mem orial [place] Systolic (mm Hg) 2017-10-08 15:45:00 Enrique rial [place] Procedures Procedure Date / Time Performing Clinician Source Performed CT MAXILLOFACIAL WO 2022-06-18 14:48:32 Abdi [facility] CONTRAST CONSENT/REFUSAL FOR 2022-05-31 01:55:15 Doctor Unassigned, No [facility] [place] [facility] Name Medical Branch CT CERVICAL SPINE WO 2022-05-21 01:24:51 [facility] CONTRAST CT HEAD WO CONTRAST 2022-05-21 01:15:40 [facility] POC GLUCOSE 2022-05-21 00:33:00 [facility] NOTICE OF PRIVACY 2022-05-10 02:37:04 Doctor Unassigned, No [facility] [place] PRACTICES Name Medical Branch CONSENT/REFUSAL FOR 2022-05-10 02:35:02 Doctor Unassigned, No [facility] [place] [facility] Name Medical Branch CONSENT/REFUSAL FOR 2022-04-23 20:00:28 Doctor Unassigned, No [facility] [place] DI[facility] TREATMENT Name Medical Branch Plan of Care Planned Activity Planned Date Details Comments Source Future Scheduled 2022-09-08 [facility] 15:04:49 screening (procedure) [code = 512130660] Future Scheduled 2022-09-08 COVID-19 VACCINE (3 [facility] Test 15:04:49 - Booster for Pfizer series) [code = COVID-19 VACCINE (3 - Booster for Pfizer series)] Future Scheduled 2022-09-08 INFLUENZA VACCINE Method [facility] Test 15:04:49 [code = INFLUENZA VACCINE] Future Scheduled 2022-09-08 [facility] Test 15:04:49 screening (procedure) [code = 954030010] Future Scheduled 2022-09-08 COVID-19 VACCINE (3 [facility] Test 15:04:49 - Booster for Pfizer series) [code = COVID-19 VACCINE (3 - Booster for Pfizer series)] Future Scheduled 2022-09-08 INFLUENZA VACCINE [facility] Test 15:04:49 [code = INFLUENZA VACCINE] Future Scheduled 2022-06-18 [facility]PAT[facility]IS B [facility] 09:25:33 VACCINES (1 of 3 - 3-dose series) [code = HEPATITIS B VACCINES (1 of 3 - 3-dose series)] Future Scheduled 2022-06-18 [facility] Test 09:25:33 screening (procedure) [code = 501380347] Future Scheduled 2022-06-18 COVID-19 VACCINE (3 [facility] Test 09:25:33 - Booster for Pfizer series) [code = COVID-19 VACCINE (3 - Booster for Pfizer series)] Future Scheduled 2022-06-18 INFLUENZA VACCINE Method ist Hospital Test 09:25:33 [code = INFLUENZA VACCINE] Future Scheduled 2022-06-18 [facility]IS B [facility] 09:25:33 VACCINES (1 of 3 - 3-dose series) [code = HEPATITIS B VACCINES (1 of 3 - 3-dose series)] Future Scheduled 2022-06-18 [facility] Test 09:25:33 screening (procedure) [code = 100726606] Future Scheduled 2022-06-18 COVID-19 VACCINE (3 [facility] Test 09:25:33 - Booster for Pfizer series) [code = COVID-19 VACCINE (3 - Booster for Pfizer series)] Future Scheduled 2022-06-18 INFLUENZA VACCINE Method ist Hospital Test 09:25:33 [code = INFLUENZA VACCINE] Future Scheduled 2022-06-18 [facility]PAT[facility]IS B [facility] 09:25:33 VACCINES (1 of 3 - 3-dose series) [code = HEPATITIS B VACCINES (1 of 3 - 3-dose series)] Future Scheduled 2022-06-18 [facility] Test 09:25:33 screening (procedure) [code = 658119437] Future Scheduled 2022-06-18 COVID-19 VACCINE (3 [facility] Test 09:25:33 - Booster for Pfizer series) [code = COVID-19 VACCINE (3 - Booster for Pfizer series)] Future Scheduled 2022-06-18 INFLUENZA VACCINE Method ist Hospital Test 09:25:33 [code = INFLUENZA VACCINE] Future Scheduled 2022-06-09 [facility]PAT[facility]IS B [facility] Test 18:36:38 VACCINES (1 of 3 - 3-dose series) [code = HEPATITIS B VACCINES (1 of 3 - 3-dose series)] Future Scheduled 2022-06-09 [facility] Test 18:36:38 screening (procedure) [code = 339742522] Future Scheduled 2022-06-09 COVID-19 VACCINE (3 [facility] Test 18:36:38 - Booster for Pfizer series) [code = COVID-19 VACCINE (3 - Booster for Pfizer series)] Future Scheduled 2022-06-09 INFLUENZA VACCINE Method ist Hospital Test 18:36:38 [code = INFLUENZA VACCINE] Future Scheduled 2022-05-25 [facility]PAT[facility]IS B [facility] Test 07:52:22 VACCINES (1 of 3 - 3-dose series) [code = HEPATITIS B VACCINES (1 of 3 - 3-dose series)] Future Scheduled 2022-05-25 [facility] Test 07:52:22 screening (procedure) [code = 320918871] Future Scheduled 2022-05-25 COVID-19 VACCINE (3 [facility] Test 07:52:22 - Booster for Pfizer series) [code = COVID-19 VACCINE (3 - Booster for Pfizer series)] Future Scheduled 2022-05-25 INFLUENZA VACCINE Method ist Hospital Test 07:52:22 [code = INFLUENZA VACCINE] Future Scheduled 2022-05-25 HEPATITIS B [facility] Test 07:52:22 VACCINES (1 of 3 - 3-dose series) [code = HEPATITIS B VACCINES (1 of 3 - 3-dose series)] Future Scheduled 2022-05-25 [facility] Test 07:52:22 screening (procedure) [code = 258528845] Future Scheduled 2022-05-25 COVID-19 VACCINE (3 [facility] Test 07:52:22 - Booster for Pfizer series) [code = COVID-19 VACCINE (3 - Booster for Pfizer series)] Future Scheduled 2022-05-25 INFLUENZA VACCINE Method ist Hospital Test 07:52:22 [code = INFLUENZA VACCINE] Encounters Start End Encounter Admission Attending Care Care Encounter Source Date/Time Date/Time Type Type Clinicians Facility Department ID 2022-10-16 Outpatient [id number] Memoria 06:48:40 [id number] B4-4798-8A7 AB4-4798- 8 l -4G5K-27P F-[id number] C6N-96T6FK [place] [id number] D64 [id number] 2022-09-25 [facility] [id number] 723F-9 Memoria 18:40:25 14B6-7D83 D1-5W98-57A 3T6-5U53- 8 l -89BD-1A5 D-2I4AEGJ51 9BD-1A5DCD Tavo [id number] 6A3 E256A3 2022-07-11 Outpatient [id number] [id number] F00D-5 Memoria 20:33:16 56M0-05HO F4-47BE-8F8 9V8-75YV- 8 l -1L3J-43N F-84ILCN215 X7J-14SUHC [place] [id number] FAD 309FAD 2022-07-05 Outpatient [id number] B7D1-4 Memoria 21:55:55 27M0-18L9 E6-01T1-W07 6B2-47K4- A l -V59Z-1H6 A-8S028STO6 53A-2Y718F Tavo 12FVN9C1P F6F BA1F6F 2022-06-20 Outpatient [id number]- NKQVT2ZE-W2 FEAA B0FE-B Memoria 20:55:03 X55D-1ZQB 9E-4FBC-9E6 39E-4FBC- 9 l -4Z94-F15 0-K37CZX263 W13-A85IGN Tavo [id number] 7B9 9867B9 2022-06-18 Outpatient [id number] 4A16 41FC-3 Memoria 07:44:31 7O39-4WIA 17-4EED-9D8 E10-6AET- 9 l -7U48-W1K 1-N6QA703P4 D39-C7DC01 Tavo Q697P1H48 A09 2A0A09 2022-06-14 Outpatient [id number] 73A9-D Memoria 22:44:21 E60Z-7M10 0A-6H35-182 90A-4A19- 9 l -9064-22B 4-07R826X5G 064-76C007 Tavo [id number] 120 S4D587 2022-06-08 Outpatient [id number] F051 4BD7-F Memoria 21:22:44 V34E-5SN6 4B-4IH3-359 44B-4BC4- 8 l -819B-E8C B-J0J72063C 19B-R8X390 [place] [id number] C63 53AC63 2022-06-03 Outpatient [id number]- [id number] ABCB 93A3-4 Memoria 01:33:52 4565-43DE 65-43DE-92E 565-43DE- 9 l -21V1-810 7-145SL98VX 7B7-414RA7 Tavo JG34YT080 217 6VP157 2022-05-30 Outpatient [id number] 114E F493-4 Memoria 20:55:52 1M98-966U 39-438E-9B8 A18-105J- 9 l -6F49-1QX 0-1DWY8M8EI I99-4DWJ7U Tavo S8J6MLU34 F41 4BEF41 2022-05-20 Outpatient [id number] 5C46 A21D-1 Memoria 18:55:15 1FAA-4CF3 AA-2UA8-28M FAA-4CF3- 8 l -80ED-A77 D-U63N72237 0ED-A77A25 Tavo [id number] [id number] 2321-09-27 Outpatient [id number] 5329-4 Memoria 14:21:52 46Y8-4FUB F0-4CEA-948 0P6-6XWT- 9 l -9486-B77 6-P55HPS0H5 486-B77BBD [place] MUQ5X50O5 4C4 1C14C4 2021-06-20 Outpatient [id number] BE16-8 Memoria 14:21:45 8434-49AE 34-49AE-95B 434-49AE- 9 l -95BD-57D D-48OQ34F9A 5BD-57DA06 Tavo C39G8K687 032 H6M404 2021-05-30 Outpatient [id number] 9471-D Memoria 15:44:20 DAF5-4596 F5-4596-BFE AF5-4596- B l -BFE1-51A 1-60YMK11EG FE1-51ACA1 Tavo BI93FI5QM 1BA 9CA1BA 2020-01-20 Inpatient [facility] [id number] [facility] 15:25:00 21 [facility] 2019-12-16 Inpatient [facility] [id number] [facility] 17:49:00 32 [facility] 2019-12-12 Inpatient [facility] [id number] [facility] 08:32:00 83 [facility] 2019-11-27 Inpatient [facility] [id number] [facility] 07:33:00 06 [facility] 2022-06-18 2022-06-18 Emergency Rodolfo, 1.2.840.1 [id number] Methodi 07:52:00 10:32:[address] [facility] 3.430.2.7 [facility] .3.435657 l .8 2022-06-18 2022-06-18 Emergency Rodolfo, 1.2.840.1 [id number] Methodi 07:52:00 10:32:[address] Subhash 3.430.2.7 [facility] .3.749485 l .8 2022-05-30 2022-05-30 Emergency [facility] [id number] Univers 21:02:00 21:53:00 ALBIN ibrahim of [facility] 2022-05-30 2022-05-30 [facility] 1.2.065.894 [id number] Univers 21:02:00 21:53:00 Albin RUSSO 350.1.13.10 i ty [facility] 4.2.7.2.686 [facility] [id number] [place] [address] Branch 2022-05-20 2022-05-20 Emergency Bárbara 1.2.840.1 [id number] Methodi 19:29:00 21:04:[address] 3.430.2.7 Hospit a .3.161177 l .8 2022-05-20 2022-05-20 Emergency Bárbara 1.2.840.1 [id number] Methodi 19:29:00 21:04:[address] 3.430.2.7 Hospit a .3.073428 l .8 2022-05-20 2022-05-20 Travel 1.2.840.1 1.2.860.509 [id number] Methodi 00:00:00 00:00:[address] 3.430.2.7 0.2.7.3.698 Ho spita .3.975170 084.8 l .8 2022-05-20 2022-05-20 Travel 1.2.840.1 1.2.767.287 0557 [id number] Methodi 00:00:00 00:00:[address] 3.430.2.7 0.2.7.3.698 Ho spita .3.037216 084.8 l .8 2022-05-09 2022-05-09 Emergency [facility] [id number] Univers 21:45:00 21:46:00 CHER ibrahim [facility] 2022-05-09 2022-05-09 Emergency [facility] 1.2.840.114 [id number] Univers 21:45:00 21:46:00 Cher RUSSO 350.1.13.10 patrice [facility] 4.2.7.2.686 [facility] [id number] [address] 2022-04-23 2022-04-23 Emergency X [facility] [id number] Univers 15:11:00 15:52:00 BO fu [facility] 2022-04-23 2022-04-23 Emergency [place], [facility] 1.2.919.759 [id number] Univers 15:11:00 15:52:00 Bo RUSSO 350.1.13.10 [facility] coco PERSAUD [id number] [facility] [id number] [facility] [address] 2021-09-14 2021-09-14 Outpatient FERGUSON_JO [facility] [id number] [place] 02:13:00 02:13[place] [id number] [facility] 2021-09-08 2021-09-08 Outpatient FERGUSON_JO [facility] [id number] [place] 02:19:00 02:19:00 [place] [id number] [facility] 2017-11-01 2017-11-01 Outpatient Family Family [id number] [facility] 10:47:00 10:47:00 [facility] 2017-10-25 2017-10-25 Outpatient Family Family [id number] [facility] 09:00:00 09:00:00 [facility] Clinic 2017-10-21 2017-10-21 PAIN IN NIKKI, [facility] [id number] [facility] 11:51:00 14:48:00 THORACIC [facility]ANY[place]Y [facility], [address] [facility] [address], (LUF/[place] [address] 2017-10-21 2017-10-21 PAIN IN NIKKI, [facility] [id number] 11:51:00 14:48:00 THORACIC [facility] N 2017-10-08 2017-10-08 Outpatient Family Family [id number] [facility]inic 09:45:00 09:45:00 Diagnosti Diagnostic [facility]Works c Clinic Clinic Results Test Description Test Time Test Comments Results Result Comments Source POC glucose 2022-05-21 00:34:00 Test Item Value Reference Range Interpretation Comme nts POC glucose (test code = 02390-4) 217 mg/dL 65-100 H Merchandise Marker Name: Zach LindsayGalina ID: [id number] Lab Interpretation (test code = Abnormal 19309-8) [facility] [id number] 00:34:00 Test Item Value Reference Range Interpretation Comments POC glucose (test code = 217 mg/dL 65-100 H Ope rator Name: Zach Johnston) BinosDevice ID: [id number] Lab Interpretation (test Abnormal code = 53557-6) [facility]2022-08-28 00:34:00 Test Item Value Reference Range Interpretation Comments POC glucose (test code = 217 mg/dL 65-100 H Ope rator Name: Zach Johnston) BinosDevice ID: [id number] Lab Interpretation (test Abnormal code = 46550-9) [facility]2022-08-28 00:34:00 Test Item Value Reference Range Interpretation Comments POC glucose (test code = 217 mg/dL 65-100 H Ope rator Name: Zach Johnston) BinosDevice ID: [id number] Lab Interpretation (test Abnormal code = 72567-7) [facility]2022-08-28 00:34:00 Test Item Value Reference Range Interpretation Comments POC glucose (test code = 217 mg/dL 65-100 H Ope rator Name: Zach Johnston) BinosDevice ID: [id number] Lab Interpretation (test Abnormal code = 58396-5) [facility]2022-08-28 00:34:00 Test Item Value Reference Range Interpretation Comments POC glucose (test code = 217 mg/dL 65-100 H Ope rator Name: Zach Johnston) BinosDevice ID: [id number] Lab Interpretation (test Abnormal code = 17980-9) [facility]2022-08-28 00:34:00 Test Item Value Reference Range Interpretation Comments POC glucose (test code = 217 mg/dL 65-100 H Ope rator Name: Zach Johnston) BinosDevice ID: [id number] Lab Interpretation (test Abnormal code = 08394-3) [facility]2022-08-28 00:34:00 Test Item Value Reference Range Interpretation Comments POC glucose (test code = 217 mg/dL 65-100 H Ope rator Name: Zach Johnston) BinosDevice ID: [id number] Lab Interpretation (test Abnormal code = 50444-2) [facility] HEAD/BRAIN W/O [id number] 18:19:00 Patient Name: VIMAL BARROSO Unit No: [id number] EXAMS: CPT CODE: [id number] CT HEAD/BRAIN W/O CONT 63325 CLINICAL INFORMATION: Moderate frontal headaches. Coughing. Dictation [...] Trnscrpt: 12/16/2019 (1818) [facility] LORETA Lopez NAME: LEANNA BARROSO[address] PHYS: Germania Isaacs NP [place] [address] : 1975 AGE: 44 SEX: M LOC: B.ERS PHONE #: [phone] EXAM DATE: 12/16/2019 STATUS: PRE ER FAX #: [phone] RAD #: D/C DT PAGE 1 Signed Report Patient Name: VIMAL BARROSO Unit No: [id number] EXAMS: CPT CODE: [id number] CT HEAD/BRAIN W/O CONT 48489 (Continued) Orig Print D/T: S: 12/16/2019 (1821) LORETA Lopez NAME: LEANNA BARROSO[address] PHYS: Germania Isaacs NP [place] [id number] : 1975 AGE: 44 SEX: M LOC: EMILY PHONE #: [phone] EXAM DATE: 12/16/2019 STATUS: PRE ER FAX #: [phone] RAD #: D/C DT PAGE 2 Signed Report- XR CHEST 2 [id number] 09:11:00 FAX: ToroGermania EASON [phone] [place]: St: REG Patient Name: VIMAL BARROSO Unit No: [id number] EXAMS: CPT CODE: [id number] XR CHEST 2 V 54452 - XR CHEST 2 V LOCATION: T18 INDICATION:Cough The lungs are well expandedand free of infiltrates. The costophrenic recesses are sharp without effusion. The heart, mediastinum and bony structures are within normal limits. Cervical spine fusion plate noted. IMPRESSION: No active disease. at 0911 Reported and signed by: Zach Rubi D.O. CC: Germania Engel NP Dictated Date/Time: 12/12/2019 (910)Technologist: Shannan Schmitz Transcribed Date/Time: 12/12/2019 (910) By: Joanna Orig Print D/T: S: 12/12/2019 (913) [facility] Jessica NAME: VIMAL BARROSO [address] [place] [address] Bl PHYS: Germania Isaacs JENARO [place] [address] : 1975 AGE: 44 SEX: M LOC: NohemyERS PHONE #: [phone] EXAM DATE: 12/12/2019 STATUS: REG ER FAX #: [phone] RAD NO: DC Dt: PAGE 1 Signed ReportSPINE LUMBAR [id number] 13:37:[address] [id number] IMAGING REPORTPatient Name: Lili BARROSO of Service: [id number]: 39 Sex: M Order #: [id number] [facility] 1975 [facility]-Ray Number: [id number] Record Number: [id number] Hospital Number: [id number] Physician: Agatha CROW Physician: RUBY TREVIÑO LUMBAR [...]
--- NOTE | 2022-10-16 07:17 | ER ---
Nurse's Notes [facility] Name: Ruben Alamo Age: 46 yrs Sex: Male : 1975 Arrival Date: 10/16/2022 Time: 06:48 Bed 5 Private MD: Diagnosis: Tooth infection;Tooth pain Presentation: 10/16 06:55 Chief complaint: Patient states: Right side bottom mouth/dental pain of 5 with right pf1 facial swelling,onset 1 week. Patient stated followed up with Yony Portage Alethea and was told to go to ER with get a prescription for antibiotics. 06:55 Method Of Arrival: Ambulatory pf1 06:55 Coronavirus screen: Vaccine status: Patient reports receiving the 1st dose of the Covid pf1 vaccine. Client denies travel out of the [place] in the last 14 days. At this time, the client does not indicate any symptoms associated with coronavirus-19. Ebola Screen: Patient negative for fever greater than or equal to 101.5 degrees Fahrenheit, and additional compatible Ebola Virus Disease symptoms. Initial Sepsis Screen: Does the patient meet any 2 criteria? No. Patient's initial sepsis screen is negative. Does the patient have a suspected source of infection? No. Patient's initial sepsis screen is negative. Risk Assessment: Do you want to hurt yourself or someone else? Patient reports no desire to harm self or others. Onset of symptoms was October 09, 2022. 06:55 Acuity: LIZBETH 4 pf1 Historical: - Allergies: 07:08 Iodine; pf1 07:08 PENICILLINS; pf1 07:08 SHELLFISH; pf1 - Home Meds: 07:08 Lisinopril Oral once daily [Active]; pf1 - PMHx: 07:08 Chronic pain; pf1 - PSHx: 07:08 facial reconstruction; Spinal surgery; pf1 - Immunization history:: Adult Immunizations up to date, Client reports receiving the 1st dose of the Covid vaccine. - Social history:: Smoking status: Patient/guardian denies using tobacco, the patient reports quitting approximately 20 years ago, Patient/guardian denies using alcohol, street drugs. Screenin:55 [facility] ED Fall Risk Assessment (Adult) History of falling in the last 3 months, pf1 including since admission No falls in past 3 months (0 pts) Confusion or Disorientation No (0 pts) Intoxicated or Sedated No (0 pts) Impaired Gait No (0 pts) Mobility Assist Device Used No (0 pt) Altered Elimination No (0 pt) Score/Fall Risk Level 0 - 2 = Low Risk Oriented to surroundings, Maintained a safe environment, Educated pt \T\ family on fall prevention, incl call for assistance when getting out of bed, Assessed \T\ reinforced patient's understanding of fall precautions, Provided non-skid footwear, Hourly rounding (assess needs \T\ fall precautionary measures) done, Used ambulatory aids as needed (educated on \T\ assisted with), Used gait belt as appropriate. 06:55 Abuse screen: Denies threats or abuse. Nutritional screening: No deficits noted. pf1 Tuberculosis screening: No symptoms or risk factors identified. Assessment: 06:55 General: Appears in no apparent distress. comfortable, obese, well groomed, well pf1 developed, Behavior is calm, cooperative, appropriate for age, quiet. 06:55 Pain: Complains of pain in right side lower mouth/dental pain Pain currently is 5 out pf1 of 10 on a pain scale. Neuro: No deficits noted. Level of Consciousness is awake, alert, obeys commands, Oriented to person, place, time, situation. Cardiovascular: No deficits noted. Capillary refill < 3 seconds Patient's skin is warm and dry. Respiratory: No deficits noted. Airway is patent Trachea midline Respiratory effort is even, unlabored, Respiratory pattern is regular, symmetrical. GI: No deficits noted. No signs and/or symptoms were reported involving the gastrointestinal system. Abdomen is round non-distended. : No deficits noted. No signs and/or symptoms were reported regarding the genitourinary system. EENT: Reports pain in right lower mouth pain. Derm: No deficits noted. No signs and/or symptoms reported regarding the dermatologic system. Musculoskeletal: No deficits noted. No signs and/or symptoms reported regarding the musculoskeletal system. Vital Signs: 06:55 BP 132 / 67; Pulse 76; Resp 18; Temp 98.9; Pulse Ox 97% on R/A; Pain 5/10; pf1 ED Course: 06:48 Patient arrived in ED. ja2 07:01 Tip Vegas DO is Attending Physician. ms3 07:05 Triage completed. pf1 07:05 Arm band placed on. pf1 07:15 Huan Roth DDS is Referral Physician. ms3 07:16 Janie Savage, RN is Primary Nurse. ap3 07:28 No provider procedures requiring assistance completed. Patient did not have IV access ap3 during this emergency room visit. 07:29 Patient has correct armband on for positive identification. Placed in gown. Bed in low ap3 position. Pulse ox on. NIBP on. Administered Medications: No medications were administered Medication: 07:29 VIS not applicable for this client. ap3 Outcome: 07:17 Discharge ordered by MD. ms3 07:29 Discharged to home ambulatory. ap3 07:29 Condition: good 07:29 Discharge instructions given to patient, Instructed on discharge instructions, follow up and referral plans. medication usage, Demonstrated understanding of instructions, follow-up care, medications, Prescriptions given X 2. 07:29 Patient left the ED. ap3 Signatures: Janie Savage, RN RN ap3 Tip Vegas DO DO ms3 Sultana Feldman [facility] Josy louis, RN RN pf1
--- NOTE | 2022-10-16 07:17 | EDPHYS ---
Physician Documentation [facility] Name: Ruben Alamo Age: 46 yrs Sex: Male : 1975 Arrival Date: 10/16/2022 Time: 06:48 Bed 5 Private MD: ED Physician Tip Vegas HPI: 10/16 07:22 This 46 yrs old Black Male presents to ER via Ambulatory with complaints of Toothache. ms3 07:22 46-year-old male with past medical history of chronic pain presents for right upper ms3 tooth pain that began 1 week prior to arrival. Patient states pain is a 5/10 and described as aching. Patient denies alleviating or inciting factors. Patient states he saw his dentist; however, he did not have money to have the tooth extracted at that time. Patient's dentist then referred him to the emergency department for an antibiotic prescription.. Historical: - Allergies: 07:08 Iodine; pf1 07:08 PENICILLINS; pf1 07:08 SHELLFISH; pf1 - Home Meds: 07:08 Lisinopril Oral once daily [Active]; pf1 - PMHx: 07:08 Chronic pain; pf1 - PSHx: 07:08 facial reconstruction; Spinal surgery; pf1 - Immunization history:: Adult Immunizations up to date, Client reports receiving the 1st dose of the Covid vaccine. - Social history:: Smoking status: Patient/guardian denies using tobacco, the patient reports quitting approximately 20 years ago, Patient/guardian denies using alcohol, street drugs. ROS: 07:22 Constitutional: Negative for fever, and chills. ms3 07:22 Cardiovascular: Negative for chest pain, and palpitations. Respiratory: Negative for shortness of breath, cough, wheezing, and pleuritic chest pain, Abdomen/GI: Negative for abdominal pain, nausea, vomiting, diarrhea, and constipation, Skin: Negative for injury, rash, and discoloration. 07:22 ENT: Positive for Teeth pain 07:22 All other systems are negative. Exam: 07:22 Constitutional: This is a well developed, well nourished patient who is awake, alert, ms3 and in no acute distress. Neck: Trachea midline, no cervical lymphadenopathy. Supple, full range of motion without nuchal rigidity, or vertebral point tenderness. No Meningismus. Chest/axilla: Normal chest wall appearance and motion. Nontender with no deformity. Cardiovascular: Regular rate and rhythm with a normal S1 and S2. No gallops, murmurs, or rubs. Normal PMI, no JVD. No pulse deficits. Respiratory: Lungs have equal breath sounds bilaterally, clear to auscultation and percussion. No rales, rhonchi or wheezes noted. No increased work of breathing, no retractions or nasal flaring. Abdomen/GI: Soft, non-tender, with normal bowel sounds. No distension or tympany. No guarding or rebound. No evidence of tenderness throughout. Skin: Warm, dry with normal turgor. Normal color with no rashes, no lesions, and no evidence of cellulitis. 07:22 ENT: Dental exam: dental caries, that is mild, specifically in the upper right first molar (#3), gum swelling, that is moderate, specifically in the upper right first molar (#3). Vital Signs: 06:55 BP 132 / 67; Pulse 76; Resp 18; Temp 98.9; Pulse Ox 97% on R/A; Pain 5/10; pf1 MDM: 07:15 Patient medically screened. ms3 07:22 Differential diagnosis: dental caries, gingivitis, dental abscess, pericoronitis. Data ms3 reviewed: vital signs, nurses notes, and as a result, I will discharge patient. I considered the following discharge prescriptions or medication management in the emergency department See Rx given. Care significantly affected by the following Social Determinants of Health: Poor access to healthcare and/or lack of insurance. Counseling: I had a detailed discussion with the patient and/or guardian regarding: the historical points, exam findings, and any diagnostic results supporting the discharge/admit diagnosis, the need for outpatient follow up, to return to the emergency department if symptoms worsen or persist or if there are any questions or concerns that arise at home. 07:35 ED course: No signs of ludwigs angina present. Patient to follow-up with Dr. Thorne in ms3 2 to 3 days. Patient understands and agrees with plan. All questions were answered. Return precautions discussed include fevers, chills, swelling, worsening symptoms, or any other concerns.. Administered Medications: No medications were administered Disposition Summary: 10/16/22 07:17 Discharge Ordered Location: Home ms3 Condition: Stable ms3 Diagnosis - Tooth infection ms3 - Tooth pain ms3 Followup: ms3 - With: Huan Roth DDS - When: 2 - 3 days - Reason: Recheck today's complaints Discharge Instructions: - Discharge Summary Sheet ms3 - Dental Pain ms3 Forms: - Medication Reconciliation Form ms3 - Work release form ss - Thank You Letter ms3 - Antibiotic Education ms3 - Prescription Opioid Use ms3 Prescriptions: - Clindamycin HCl 150 mg Oral Capsule - take 3 capsule by ORAL route every 8 hours for 7 days; 63 capsule; Refills: 0, ms3 Product Selection Permitted - Ibuprofen 600 mg Oral Tablet - take 1 tablet by ORAL route every 6 hours As needed take with food; 30 tablet; ms3 Refills: 0, Product Selection Permitted Signatures: Tip Vegas DO DO ms3 Josy louis, RN RN pf1
[2022-10-16 07:34] VITALS: BP 132/67; TEMP 98.9; O2SAT 97
== END 2022-10-16 07:29 | disposition home or self-care (01) ==
LOC: ER 06:45
DX: K04.7 Periapical abscess without sinus (principal)
CPT/HCPCS: 99283

== ENCOUNTER 2022-11-12 01:27 | Emergency (ER) | payer SELFPAY ==
--- OUTSIDE RECORDS SUMMARY | 2022-11-12 01:31 | XMS REPORT | Continuity of Care Document ---
:1975 Author Organization [facility] t Address [address] [place] [address] Care Team Providers Name Role Phone PCP, PATIENT DOES NOT HAVE A Primary Care Physician UnavailArjun Castillo MD Attending Clinician [phone] ALBIN ROSAS Attending Clinician Unavailable Albin [...] rs active active ity of problems problems [facility] Lumbago Lumbago Problem Active 2017-11-07 Me moria with with 03:47:18 l sciatica, sciatica, Herm marcus left side left side Active Problem 11/07/2017 Family Diagnostic Body mass Body mass Problem Active 2017-11-07 Memoria index index 03:47:18 l (BMI) (BMI) [place] 45.0-49.9, 45.0-49.9, adult adult Active Problem 11/07/2017 [...] INGREDI 8-16 ity of DERIVED 00:00: [place] [address] [place] [address] Branch Shellfis Propensi Active Unknown - Uni vers h ty to See comments 816 ity of Derived adverse 00:00: [place] reaction 00 Medical s Branch No Known DA Active U [facility] Allergie 3-05 [place] 00:00: Regiona 00 [facility] No Known DA Active U [facility] Allergie 3-05 [place] 00:00: Regiona [facility] NO KNOWN Drug Active Univers ALLERGIE Class ity of [facility] [place] [facility] [place] Social History Social Habit Start Date Stop Date Quantity Comments Source Tobacco use and 2022-06-18 2022-06-18 Smokeless tobacco [facility] exposure 00:00:00 00:00:00 non-user Exposure to 2022-05-20 2022-05-30 Not sure [facility] SARS-CoV-2 00:00:00 20:57:00 [facility] [place] (event) Branch Sex Assigned At [address] [facility] 00:00:00 00:00:00 Smoking Status Start Date Stop Date Source Tobacco smoking consumption unknown [facility] Never smoked tobacco [facility] ospital Medications Ordered Filled Start Stop [...] food) for up to 7 days. diclofenac 2022-0 2022- No 50mg Q.5D Take 1 Meth willi (VOLTAREN) 9-25 10-03 tablet (50 st 50 MG EC 00:00: 04:59 mg total) Hos byron tablet 00 :00 by mouth 2 l (two) times a day as needed (for pain and swelling. take w/ food) for up to 7 days. diclofenac 2022-0 2022- No 50mg Q.5D Take 1 Meth willi (VOLTAREN) 9-25 10-03 tablet (50 st 50 MG EC 00:00: 04:59 mg total) Hos byron tablet 00 :00 by mouth 2 l (two) times a day as needed (for pain and swelling. take w/ food) for up to 7 days. lidocaine 2021-0 2022- No 4mL Q.[id number] Apply 4 mL Methodi HCL 9-18 06-[id number] (lidocaine) 00:00: 04:59 3D 3 (three) Hospita 2 % 00 :00 times a l solution day for 3 days. Apply to cottonball and place it by toothache lidocaine 2021-0 2022- No 4mL Q.[id number] Apply 4 mL Methodi HCL 9-18 06-[id number] (lidocaine) 00:00: 04:59 3D 3 (three) Hospita 2 % 00 :00 times a l solution day for 3 days. Apply to cottonball and place it by toothache lidocaine 2-0 2022- No 4mL Q.[id number] Apply 4 mL Methodi HCL 9-18 06-[id number] (lidocaine) 00:00: 04:59 3D 3 (three) Hospita 2 % 00 :00 times a l solution day for 3 days. Apply to cottonball and place it by toothache lidocaine 2-0 2022- No 4mL Q.[id number] Apply 4 mL Methodi HCL 9-25 -[id number] (lidocaine) 00:00: 04:59 3D 3 (three) Hospita 2 % 00 :00 times a l solution day for 3 days. Apply to cottonball and place it by toothache lidocaine 2022-0 2022- No 4mL Q.[id number] Apply 4 mL Methodi HCL 06-[id number] (lidocaine) 00:00: 04:59 3D 3 (three) Hospita 2 % 00 :00 times a l solution day for 3 days. Apply to cotton[place] and place it by toothache lidocaine 2021- No 4mL Q.[id number] Apply 4 mL Methodi HCL 06-[id number] (lidocaine) 00:00: 04:59 3D 3 [...] 1 at 2130, tablet CHRISTINA butalbital- Yes [id number] 1{tbl} Take 1 Univers acetaminoph 05-30 tablet by ity of en-caff 00:00: mouth [...] to 30 days. LISINOPRIL Yes Take by [facility] ers ORAL 8-16 mouth. ity of 21:45: [address] HYDROcodone Yes 1{tbl} Take 1 Un butch -acetaminop 8-16 tablet by ity of hen (NORCO) 21:45: mouth [place] 10-325 mg 20 every 6 Medical tablet (six) Branch hours as needed. LISINOPRIL Yes Take by [facility] ers ORAL 8-16 mouth. ity of 21:45: [address] HYDROcodone Yes 1{tbl} Take 1 Un butch -acetaminop 8-16 tablet by ity of hen (NORFoxwordy) 21:45: mouth [place] 10-325 mg 20 every 6 Medical tablet (six) Branch hours as needed. ketorolac 2021- No 30mg 30 mg, Unive rs (TORADOL) 04-23 Intramuscu ity of injection 21:15: 09:14 lar, ONCE, [place] 30 mg 00 :00 1 dose, On Medical [facility] 04/23/22 at 1615, Routine metoclopram 2021- No 10mg 10 mg, Uni vers darren HCl 04-23 Intramuscu ity o f (REGLAN) 20:15: 20:45 [place] :00 1 dose, On Medi shannan 10 mg [facility] 04/23/22 at 1515, CHRISTINA Hydrocodone Yes [place] 1 tablet Memoria -Acetaminop 2-14 Irfan as needed l hen 03:47: Tavo Garibay Carisoprodo Yes [place] 1 tablet Memoria l 2-14 Irfan as needed l 03:47: Tavo Garibay Meloxicam Yes [place] 1 tablet Memoria 2-14 Irfan l 03:47: Tavo Garibay Hydrocodone Yes [place] 1 tablet Memoria -Acetaminop 2-14 Irfan as needed l hen 03:47: Tavo Carisoprodo 2018-0 Yes [place] 1 tablet Memoria l 2-14 Irfan as needed l 03:47: Tavo Meloxicam 2018-0 Yes [place] 1 tablet Memoria 2-14 Irfan l 03:47: Tavo Hydrocodone 2018-0 Yes [place] 1 tablet Memoria -Acetaminop 2-14 Irfan as needed l hen 03:47: Tavo Carisoprodo 2018-0 Yes [place] 1 tablet Memoria l 2-14 Irfan as needed l 03:47: Tavo Meloxicam 2018-0 Yes [place] 1 tablet Memoria 2-14 Irfan l 03:47: Tavo Hydrocodone 2018-0 Yes [place] 1 tablet Memoria -Acetaminop 2-14 Irfan as needed l hen 03:47: Tavo Carisoprodo 2018-0 Yes [place] 1 tablet Memoria l 2-14 Irfan as needed l 03:47: Tavo Meloxicam 2018-0 Yes [place] 1 tablet Memoria 2-14 Irfan l 03:47: Tavo Acetaminoph 2018-0 Yes [place] 1 tablet Memoria [...] Lukes 00:00: Memoria 00 l (LUF/LI V/SA) [place] 0 Yes [place] 1 tablet Enrique elkin 1-15 Irfan as needed l 00:00: Soma 2018-0 Yes [place] 1 tablet Memor ia 1-15 Irfan as needed l 00:00: Meloxicam 2018-0 Yes [place] 1 tablet Memoria 1-15 Irfan l 00:00: [place] 2018-0 Yes [place] 1 tablet Enrique elkin 1-15 Irfan as needed l 00:00: Soma 2018-0 Yes [place] 1 tablet Memor ia 1-15 Irfan as needed l 00:00: Meloxicam 2018-0 Yes [place] 1 tablet Memoria 1-15 Irfan l 00:00: [place] 2018-0 Yes [place] 1 tablet Enrique elkin 1-15 Irfan as needed l 00:00: Soma 2018-0 Yes [place] 1 tablet Memor ia 1-15 Irfan as needed l 00:00: Meloxicam 2018-0 Yes [place] 1 tablet Memoria 1-15 Irfan l 00:00: [place] 2018-0 Yes [place]aint 1 tablet Enrique elkin [...] 01:59:00 128 mm[Hg] Univer sity of pressure [place] [facility] Diastolic blood 2022-05-31 01:59:00 81 mm[Hg] Unive rsity of pressure [place] [facility] Heart rate 2022-05-31 01:59:00 78 /min [facility]i ty [facility] [place] [facility] Body temperature 2022-05-31 01:59:00 36.94 Amisha Univ ersity [facility] [place] [facility] Respiratory rate 2022-05-31 01:59:00 18 /min Univ ers[facility] [place] [facility] Body height 2022-05-31 01:59:00 165.1 cm [facility] [place] [facility] Body weight 2022-05-31 01:59:00 127.007 kg [facility] [place] [facility] BMI 2022-05-31 01:59:00 46.59 kg/m2 [facility] [place] [facility] Oxygen saturation in 2022-05-31 01:59:00 95 /min University of Arterial blood by [place] [employer] shannan Pulse oximetry Branch Systolic blood 2022-05-10 02:39:00 148 mm[Hg] Univer sity of pressure [place] [facility] Diastolic blood 2022-05-10 02:39:00 84 mm[Hg] Unive rsity of pressure [place] [facility] Heart rate 2022-05-10 02:39:00 70 /min [facility]i [facility] [place] [facility] Body temperature 2022-05-10 02:39:00 37.56 Amisha Univ [facility] [place] [facility] Respiratory rate 2022-05-10 02:39:00 18 /min Univ [facility] [place] [facility] Body height 2022-05-10 02:39:00 162.6 cm [facility] [place] [facility] Body weight 2022-05-10 02:39:00 127.007 kg [facility] [place] [facility] BMI 2022-05-10 02:39:00 48.06 kg/m2 [facility] [place] [facility] Oxygen saturation in 2022-05-10 02:39:00 95 /min University of Arterial blood by [place] Medi shannan Pulse oximetry Branch Body weight 2022-04-23 20:11:00 133.131 kg [facility] [place] [facility] BMI 2022-04-23 20:11:00 50.38 kg/m2 Universi ty [facility] Systolic blood 2022-04-23 20:09:00 140 mm[Hg] Univer sity of pressure [facility] Diastolic blood 2022-04-23 20:09:00 81 mm[Hg] Unive rsity of pressure [facility] Heart rate 2022-04-23 20:09:00 66 /min Universi ty [facility] Body temperature 2022-04-23 20:09:00 36.72 Amisha [facility] Respiratory rate 2022-04-23 20:09:00 17 /min [facility] Body height 2022-04-23 20:09:[address] [facility] Oxygen saturation in 2022-04-23 20:09:00 97 /min University Arterial blood by [facility] Pulse oximetry [place] Systolic blood 2022-06-18 15:20:24 157 mm[Hg] Method [facility] pressure Diastolic blood 2022-06-18 15:20:24 74 mm[Hg] [facility] pressure Heart rate 2022-06-18 15:20:24 53 /min [facility] Body temperature 2022-06-18 15:20:24 36.78 Amisha [facility] Respiratory rate 2022-06-18 15:20:24 16 /min [facility] Oxygen saturation in 2022-06-18 15:20:24 97 /min [facility] Arterial blood by Pulse oximetry Body height 2022-06-18 12:48:00 162.6 cm [facility] Body weight 2022-06-18 12:48:00 127.007 kg [facility] BMI 2022-06-18 12:48:00 48.06 kg/m2 [facility] Systolic blood 2022-05-21 00:33:00 132 mm[Hg] Method [facility] pressure Diastolic blood 2022-05-21 00:33:00 64 mm[Hg] [facility] pressure Heart rate 2022-05-21 00:33:00 64 /min [facility] Oxygen saturation in 2022-05-21 00:33:00 98 /min [facility] Arterial blood by Pulse oximetry Body temperature 2022-05-20 23:53:12 36.17 Amisha [facility] Respiratory rate 2022-05-20 23:53:12 18 /min [facility] Body height 2022-05-20 23:52:00 162.6 cm [facility] Body weight 2022-05-20 23:52:00 127.007 kg [facility] BMI 2022-05-20 23:52:00 48.06 kg/m2 [facility] Weight 2017-10-25 15:00:00 [facility] [place] Height 2017-10-25 15:00:00 [facility] [place] Temperature Oral (F) 2017-10-25 15:00:00 97.8 F [facility] [place] Heart Rate 2017-10-25 15:00:00 [facility] [place] Diastolic (mm Hg) 2017-10-25 15:00:00 Mem orial [place] Systolic (mm Hg) 2017-10-25 15:00:00 Enrique rial [place] Body Temperature 2017-10-21 12:00:00 97.5 F [facility] (LUF/BLANCA/SA) Respiratory Rate 2017-10-21 12:00:00 20 /min [facility] (LUF/BLANCA/SA) O2% BldC Oximetry 2017-10-21 12:00:00 98 % [facility] (LUF/BLANCA/SA) BP Systolic 2017-10-21 12:00:00 132 mm[Hg] [facility] (LUF/BLANCA/SA) BP Diastolic 2017-10-21 12:00:00 78 mm[Hg] [facility] (LUF/BLANCA/SA) Height 2017-10-21 12:00:00 64 in [facility] (LUF/BLANCA/SA) Weight Measured 2017-10-21 12:00:00 282.19 lbs [facility] (LUF/BLANCA/SA) BMI (Body Mass 2017-10-21 12:00:00 48.7 [facility] (LUF/BLANCA/SA) Weight 2017-10-08 15:45:00 [facility] [place] Height 2017-10-08 15:45:00 [facility] [place] Temperature Oral (F) 2017-10-08 15:45:00 96.8 F [facility] [place] Heart Rate 2017-10-08 15:45:00 [facility] [place] Diastolic (mm Hg) 2017-10-08 15:45:00 Mem moni Vo Systolic (mm Hg) 2017-10-08 15:45:00 Enrique Vo Procedures Procedure Date / Time Performing Clinician Source Performed CT MAXILLOFACIAL WO 2022-06-18 14:48:32 [facility] CONTRAST CONSENT/REFUSAL FOR 2022-05-31 01:55:15 Doctor Unassigned, No [facility] [place] DI[facility]NOS[facility] TREATMENT Name Medical Branch CT CERVICAL SPINE WO 2022-05-21 01:24:51 [facility] [place] CONTRAST CT HEAD WO CONTRAST 2022-05-21 01:15:40 [facility] POC GLUCOSE 2022-05-21 00:33:00 [facility] NOTICE OF PRIVACY 2022-05-10 02:37:04 Doctor Unassigned, No [facility] [place] PRACTICES Name Medical Branch CONSENT/REFUSAL FOR 2022-05-10 02:35:02 Doctor Unassigned, No [facility] [place] DIAGNOSIS [facility] TREATMENT Name Medical Branch CONSENT/REFUSAL FOR 2022-04-23 20:00:28 Doctor Unassigned, No [facility] [place] DIAGNOSIS AND TREATMENT Name Medical Branch Plan of Care Planned Activity Planned Date Details Comments Source Future Scheduled 2022-09-08 [facility] 15:04:49 screening (procedure) [code = 936365924] Future Scheduled 2022-09-08 COVID-19 VACCINE (3 [facility] Test 15:04:49 - Booster for Pfizer series) [code = COVID-19 VACCINE (3 - Booster for Pfizer series)] Future Scheduled 2022-09-08 INFLUENZA VACCINE Method [facility] Test 15:04:49 [code = INFLUENZA VACCINE] Future Scheduled 2022-09-08 [facility] 15:04:49 screening (procedure) [code = 944688361] Future Scheduled 2022-09-08 COVID-19 VACCINE (3 [facility] Test 15:04:49 - Booster for Pfizer series) [code = COVID-19 VACCINE (3 - Booster for Pfizer series)] Future Scheduled 2022-09-08 INFLUENZA VACCINE [facility] Test 15:04:49 [code = INFLUENZA VACCINE] Future Scheduled 2022-09-08 [facility] 15:04:49 screening (procedure) [code = 904964624] Future Scheduled 2022-09-08 COVID-19 VACCINE (3 [facility] Test 15:04:49 - Booster for Pfizer series) [code = COVID-19 VACCINE (3 - Booster for Pfizer series)] Future Scheduled 2022-09-08 INFLUENZA VACCINE [facility] Test 15:04:49 [code = INFLUENZA VACCINE] Future Scheduled 2022-06-18 [facility] 09:25:33 VACCINES (1 of 3 - 3-dose series) [code = HEPATITIS B VACCINES (1 of 3 - 3-dose series)] Future Scheduled 2022-06-18 [facility] 09:25:33 screening (procedure) [code = 201657908] Future Scheduled 2022-06-18 COVID-19 VACCINE (3 [facility] Test 09:25:33 - Booster for Pfizer series) [code = COVID-19 VACCINE (3 - Booster for Pfizer series)] Future Scheduled 2022-06-18 INFLUENZA VACCINE Method [facility] Test 09:25:33 [code = INFLUENZA VACCINE] Future Scheduled 2022-06-18 [facility] 09:25:33 VACCINES (1 of 3 - 3-dose series) [code = HEPATITIS B VACCINES (1 of 3 - 3-dose series)] Future Scheduled 2022-06-18 [facility] 09:25:33 screening (procedure) [code = 098310473] Future Scheduled 2022-06-18 COVID-19 VACCINE (3 [facility] Test 09:25:33 - Booster for Pfizer series) [code = COVID-19 VACCINE (3 - Booster for Pfizer series)] Future Scheduled 2022-06-18 INFLUENZA VACCINE Method [facility] Test 09:25:33 [code = INFLUENZA VACCINE] Future Scheduled 2022-06-18 [facility] 09:25:33 VACCINES (1 of 3 - 3-dose series) [code = HEPATITIS B VACCINES (1 of 3 - 3-dose series)] Future Scheduled 2022-06-18 [facility] 09:25:33 screening (procedure) [code = 981405834] Future Scheduled 2022-06-18 COVID-19 VACCINE (3 [facility] Test 09:25:33 - Booster for Pfizer series) [code = COVID-19 VACCINE (3 - Booster for Pfizer series)] Future Scheduled 2022-06-18 INFLUENZA VACCINE Method [facility] Test 09:25:33 [code = INFLUENZA VACCINE] Future Scheduled 2022-06-09 [facility] 18:36:38 VACCINES (1 of 3 - 3-dose series) [code = HEPATITIS B VACCINES (1 of 3 - 3-dose series)] Future Scheduled 2022-06-09 [facility] 18:36:38 screening (procedure) [code = 436610397] Future Scheduled 2022-06-09 COVID-19 VACCINE (3 [facility] Test 18:36:38 - Booster for Pfizer series) [code = COVID-19 VACCINE (3 - Booster for Pfizer series)] Future Scheduled 2022-06-09 INFLUENZA VACCINE Method [facility] Test 18:36:38 [code = INFLUENZA VACCINE] Future Scheduled 2022-05-25 [facility] 07:52:22 VACCINES (1 of 3 - 3-dose series) [code = HEPATITIS B VACCINES (1 of 3 - 3-dose series)] Future Scheduled 2022-05-25 [facility] 07:52:22 screening (procedure) [code = 728210320] Future Scheduled 2022-05-25 COVID-19 VACCINE (3 [facility] Test 07:52:22 - Booster for Pfizer series) [code = COVID-19 VACCINE (3 - Booster for Pfizer series)] Future Scheduled 2022-05-25 INFLUENZA VACCINE Method [facility] Test 07:52:22 [code = INFLUENZA VACCINE] Future Scheduled 2022-05-25 [facility] 07:52:22 VACCINES (1 of 3 - 3-dose series) [code = HEPATITIS B VACCINES (1 of 3 - 3-dose series)] Future Scheduled 2022-05-25 [facility] 07:52:22 screening (procedure) [code = 280433429] Future Scheduled 2022-05-25 COVID-19 VACCINE (3 [facility] Test 07:52:22 - Booster for Pfizer series) [code = COVID-19 VACCINE (3 - Booster for Pfizer series)] Future Scheduled 2022-05-25 INFLUENZA VACCINE [facility] Test 07:52:22 [code = INFLUENZA VACCINE] Encounters Start End Encounter Admission Attending Care Care Encounter Source Date/Time Date/Time Type Type Clinicians Facility Department ID 2022-11-12 Outpatient [id number] Memoria 01:29:42 ADA0-43F6 A0-27H7-V54 DA0-43F6- A l -O693-70B 6-46V8J23WV 116-87F8D9 Tavo [id number] C1D 5BBC1D 2022-10-16 Outpatient [id number] [id number] Memoria 06:48:40 3TT2-9819 B4-4798-8A7 AB4-4798- 8 l -3Q7O-03X F-67A6YQ231 S0F-78G2IU Tavo [id number] D64 698D64 2022-09-25 Outpatient [id number] [id number]-9 Memoria 18:40:25 47T2-6E73 D1-6D55-78O 3J5-4J10- 8 l -89BD-1A5 D-3S3BSIM59 9BD-1A5DCD Tavo [id number] 6A3 E256A3 2022-07-11 Outpatient [id number] F00D-5 Memoria 20:33:16 95Q2-43FE F4-47BE-8F8 9E3-20OW- 8 l -3M1V-35L F-09QLAJ658 L4I-85IREO Tavo [id number] FAD 309FAD 2022-07-05 Outpatient [id number] B7D1-4 Memoria 21:55:55 59A1-51G2 E6-79F6-L18 7E6-43Y7- A l -B67D-9X6 A-7Z103YWO6 53A-7S691Y Tavo 62VFU6R3G F6F BA1F6F 2022-06-20 Outpatient [id number]- RASTX0DA-X8 FEAA B0FE-B Memoria 20:55:03 G00M-3KZR 9E-4FBC-9E6 39E-4FBC- 9 l -5G58-D69 0-Q38MRX242 Y47-Q54ANE Tavo [id number] 7B9 9867B9 2022-06-18 Outpatient [id number] 41FC-3 Memoria 07:44:31 9Z37-2UCG 17-4EED-9D8 T72-7MNJ- 9 l -9K71-E1U 1-L4TJ987G0 H81-E7PI44 Tavo K250X7V27 A09 2A0A09 2022-06-14 Outpatient [id number] 73A9-D Memoria 22:44:21 E09Y-4W49 0A-3I81-513 90A-4A19- 9 l -9064-22B 4-21C043Y7T 064-12N444 Tavo [id number] 120 U8Q023 2022-06-08 Outpatient [id number] 4BD7-F Memoria 21:22:44 E09I-6BL7 4B-3HE7-304 44B-4BC4- 8 l -819B-E8C B-P6L74433K 19B-C4F820 Tavo [id number] C63 53AC63 2022-06-03 Outpatient [id number]- [id number] ABCB 93A3-4 Memoria 01:33:52 4565-43DE 65-43DE-92E 565-43DE- 9 l -28P6-216 7-030YA06EF 0A7-459MH2 Tavo [id number] 217 [id number] 2022-05-30 Outpatient [id number] [id number] F493-4 Memoria 20:55:52 9N49-596A 39-438E-9B8 V89-534B- 9 l -5S81-4PF 0-4HRJ8M5BZ B38-5KZI4G Tavo Z7Q7KDH26 F41 4BEF41 2022-05-20 Outpatient [id number] A21D-1 Memoria 18:55:15 1FAA-4CF3 AA-1OT2-60Q FAA-4CF3- 8 l -80ED-A77 D-B33X18153 0ED-A77A25 Tavo [id number] 1931-09-27 Outpatient [id number] [id number] Memoria 14:21:52 06W5-9HBC F0-4CEA-948 4J4-7NKF- 9 l -9486-B77 6-N14FQM5I6 486-B77BBD Tavo KZY8W01O3 4C4 1C14C4 2021-06-20 Outpatient [id number] BE16-8 Memoria 14:21:45 8434-49AE 34-49AE-95B 434-49AE- 9 l -95BD-57D D-39SG19N7C 5BD-57DA06 Tavo [id number] 032 H0S148 2021-05-30 Outpatient [id number] [id number] Memoria 15:44:20 DAF5-4596 F5-4596-BFE AF5-4596- B l -BFE1-51A 1-86BBA67QU FE1-51ACA1 Tavo LP83IN0RZ 1BA 9CA1BA 2020-01-20 Inpatient [facility] [id number] [facility] 15:25:00 21 [facility] 2019-12-16 Inpatient [facility] [id number] [facility] 17:49:00 32 [facility] 2019-12-12 Inpatient [facility] [id number] [facility] 08:32:00 83 [facility] 2019-11-27 Inpatient [facility] [id number] [facility] 07:33:00 06 [facility] 2022-06-18 2022-06-18 Emergency Rodolfo, 1.2.840.1 [id number] Methodi 07:52:00 10:32:[address] [facility] 3.430.2.7 [facility] .3.281670 l .8 2022-06-18 2022-06-18 Emergency Rodolfo, 1.2.840.1 [id number] Methodi 07:52:00 10:32:[address] [facility] 3.430.2.7 [facility] .3.366097 l .8 2022-05-30 2022-05-30 Emergency X RALPH, [facility] ERT [id number] Univers 21:02:00 21:53:[address] [facility] 2022-05-30 2022-05-30 Emergency [facility] 1.2.348.580 8881 [id number] Univers 21:02:00 21:53:00 Albin RUSSO 350.1.13.10 i ty [facility] 4.2.7.2.686 [facility] [id number] [address] 2022-05-20 2022-05-20 Emergency Bárbara 1.2.840.1 [id number] Methodi 19:29:00 21:04:[address]1.[address] 3.430.2.7 Hospit a .3.497802 l .8 2022-05-20 2022-05-20 Emergency Bárbara 1.2.840.1 [id number] Methodi 19:29:00 21:04:[address]17[address] 3.430.2.7 Hospit a .3.986675 l .8 2022-05-20 2022-05-20 Travel 1.2.840.1 1.2.086.925 6922 [id number] Methodi 00:00:00 00:00:[address] 3.430.2.7 0.2.7.3.698 Ho spita .3.765563 084.8 l .8 2022-05-20 2022-05-20 Travel 1.2.840.1 1.2.899.803 9905 [id number] Methodi 00:00:00 00:00:[address] 3.430.2.7 0.2.7.3.698 Ho spita .3.772352 084.8 l .8 2022-05-09 2022-05-09 Emergency X [facility] ERT [id number] Univers 21:45:00 21:46:00 CHER ibrahim [facility] 2022-05-09 2022-05-09 Emergency [facility] 1.2.840.114 [id number] Univers 21:45:00 21:46:00 Cher [facility]US[facility]10 [id number] [id number] [address] 2022-04-23 2022-04-23 Emergency X [facility] ERT [id number] Univers 15:11:00 15:52:00 BO uf [facility] 2022-04-23 2022-04-23 Emergency [facility] [id number] Univers 15:11:00 15:52:00 Bo [id number] [id number] [facility] [id number] [address] 2021-09-14 2021-09-14 Outpatient FERGUSON_JO AKHOP [facility] [id number] [place] 02:13:00 02:13[place] [id number] [facility] 2021-09-08 2021-09-08 Outpatient FERGUSON_JO MEHOP [facility] [id number] [place] 02:19:00 02:19:00 [place] [id number] [facility] 2017-11-01 2017-11-01 Outpatient Family Family [id number] [facility] 10:47:00 10:47:00 [facility] 2017-10-25 2017-10-25 Outpatient Family Family [id number] [facility] 09:00:00 09:00:00 [facility] 2017-10-21 2017-10-21 PA[facility]KKI, [facility] [id number] 11:51:00 14:48:00 [facility] 2017-10-21 2017-10-21 PA[facility] [id number] [facility] 11:51:00 14:48:00 [facility], [address], (LUF[place] [address] 2017-10-08 2017-10-08 Outpatient Family Family [id number] [facility] 09:45:00 09:45:00 [facility] Clinic Results Test Description Test Time Test Comments Results Result Comments Source POC glucose 2022-05-21 00:34:00 Test Item Value Reference Range Interpretation Comme nts POC glucose (test code = 09416-2) 217 mg/dL 65-100 H Service Mechanic Name: Zach Avery ID: [id number] Lab Interpretation (test code = Abnormal 38850-3) [facility]2022-08-28 00:34:00 Test Item Value Reference Range Interpretation Comments POC glucose (test code = 217 mg/dL 65-100 H Ope rator Name: Zach [id number]) Binos[employer] ID: [id number] Lab Interpretation (test Abnormal code = 47860-2) [facility] [id number] 00:34:00 Test Item Value Reference Range Interpretation Comments POC glucose (test code = 217 mg/dL 65-100 H Ope rator Name: Zach [id number]) [employer]inos[employer] ID: [id number] Lab Interpretation (test Abnormal code = 81569-5) [facility] [id number] 00:34:00 Test Item Value Reference Range Interpretation Comments POC glucose (test code = 217 mg/dL 65-100 H Ope rator Name: Zach [id number]) [employer]inos[employer] ID: [id number] Lab Interpretation (test Abnormal code = 00803-0) [facility] [id number] 00:34:00 Test Item Value Reference Range Interpretation Comments POC glucose (test code = 217 mg/dL 65-100 H Ope rator Name: Zach Johnston) [employer]inosDevice ID: [id number] Lab Interpretation (test Abnormal code = 22804-7) [facility] [id number] 00:34:00 Test Item Value Reference Range Interpretation Comments POC glucose (test code = 217 mg/dL 65-100 H Ope rator Name: Zach Johnston) [employer]inos[employer] ID: [id number] Lab Interpretation (test Abnormal code = 17065-3) [facility] [id number] 00:34:00 Test Item Value Reference Range Interpretation Comments POC glucose (test code = 217 mg/dL 65-100 H Ope rator Name: Zach Johnston) BinosDevice ID: [id number] Lab Interpretation (test Abnormal code = 78300-4) [facility] [id number] 00:34:00 Test Item Value Reference Range Interpretation Comments POC glucose (test code = 217 mg/dL 65-100 H Ope rator Name: Zach Johnston) [employer]inosDevice ID: [id number] Lab Interpretation (test Abnormal code = 52211-2) [facility] [id number] 00:34:00 Test Item Value Reference Range Interpretation Comments POC glucose (test code = 217 mg/dL 65-100 H Ope rator Name: Zach Johnston) BinosDevice ID: [id number] Lab Interpretation (test Abnormal code = 43165-4) [facility] HEAD/BRAIN W/O [id number] 18:19:00 Patient Name: VIMAL BARROSO Unit No: [id number] EXAMS: CPT CODE: [id number] CT HEAD/BRAIN W/O CONT 00938 CLINICAL INFORMATION: Moderate frontal headaches. Coughing. Dictation [...] event identified. at 1818 Reported and signed by:Deepak Tee MD CC: Germania Engel NP Dictated Date/Time: 12/16/2019 (1818) Technologist: Ibis Mata - Agency CTDI: 45.04 DLP: 757.79 Trnscrpt: 12/16/2019 (1818) [facility]irt[facility] LORETA Lopez NAME: VIMAL BARROSO [address] [place] [address] PHYS: KELLY Vargas ToroGermania [place] [address] : 1975 AGE: 44 SEX: M LOC: NohemyEZE PHONE #: [phone] EXAM DATE: 12/16/2019 STATUS: PREER FAX #: [phone] RAD #: D/C DT PAGE 1 Signed Report Patient Name: VIMAL BARROSO Unit No: [id number] EXAMS: CPT CODE: [id number] CT HEAD/BRAIN W/O CONT 49661 (Continued) Orig Print D/T: S: 12/16/2019 (1821) LORETA Lopez NAME: [address] PHYS: Germania Isaacs NP [place] [address] : 1975 AGE: 44 SEX: M LOC: NohemyERS PHONE #: [phone] EXAM DATE: 12/16/2019 STATUS: PRE ER FAX #: [phone] RAD #: D/C DT PAGE 2 Signed Report- XR CHEST 2 [id number] 09:11:00 FAX: Germania Engel NP [phone] [place]: E St: REG Patient Name: VIMAL BARROSO Unit No: [id number] EXAMS: CPT CODE: [id number] XR CHEST 2 V 15853 - XR CHEST 2 V LOCATION: T18 [...] Joanna Orig Print D/T: S: 12/12/2019 (913) [facility] Jessica NAME: VIMAL BARROSO [address] [place] [address] PHYS: Germania Isaacs NP [place], [place] [address] : 1975 AGE: 44 SEX: M LOC: B.ERS PHONE #: [phone] EXAM DATE: 12/12/2019 STATUS: REG ER FAX #: [phone] RAD NO: DC Dt: PAGE 1 Signed ReportSPINE LUMBAR [id number] 13:37:[address] [id number] IMAGING REPORTPatient Name: Lili BARROSO of Service: [id number]: 39 Sex: M Order #: [id number] Room: CCSDOB: 1975 X-Ray Number: [id number] Record Number: [id number] Hospital Number: [id number] Physician: Agatha CROW Physician: RUBY TREVIÑO LUMBAR [...]
[2022-11-12 02:42] LABS: Absolute Lymphocytes (CBC) 2.3 K/uL (0.7-4.9); Hematocrit 37.6 % (39.6-49.0); Lymphocytes % 30.1 % (15.3-44.8); MCV 89.9 fL (80-100); MPV 9.7 fL (7.6-11.3); RBC Red Blood Cell Count 4.18 M/uL (4.33-5.43)
[2022-11-12 05:01] LABS: Troponin High Sensitivity 6.2 pg/mL (<58.9)
--- NOTE | 2022-11-12 05:04 | ER ---
Nurse's Notes [facility] [place] [facility] Name: Ruben Alamo Age: 46 yrs Sex: Male : 1975 Arrival Date: 11/12/2022 Time: 01:30 Bed 7 Private MD: Diagnosis: Cephalgia;Chest wall pain Presentation: 11/12 01:42 Chief complaint: Patient states: "I have had headaches in the past, but I also started tw5 having chest pain. It it has been off and on since . It hit me again about 20 min ago and then it went away. ". Coronavirus screen: Vaccine status: Patient reports receiving the 2nd dose of the covid vaccine. Zuora. Ebola Screen: Patient negative for fever greater than or equal to 101.5 degrees Fahrenheit, and additional compatible Ebola Virus Disease symptoms Patient denies exposure to infectious person. Patient denies travel to an Ebola-affected area in the 21 days before illness onset. Initial Sepsis Screen: Does the patient meet any 2 criteria? No. Patient's initial sepsis screen is negative. Does the patient have a suspected source of infection? No. Patient's initial sepsis screen is negative. Risk Assessment: Do you want to hurt yourself or someone else? Patient reports no desire to harm self or others. Onset of symptoms is unknown. 01:42 Method Of Arrival: Ambulatory tw 01:42 Acuity: LIZBETH 3 tw5 Triage Assessment: 01:44 Headache History: The patient has had previous headaches and this one is similar to tw5 previous episodes. General: Appears in no apparent distress. Behavior is calm, cooperative. Pain: Pain currently is 0 out of 10 on a pain scale. Pain began. Neuro: Level of Consciousness is awake, alert, obeys commands, Oriented to person, place, time, situation. Historical: - Allergies: 01:44 Iodine; 01:44 PENICILLINS; 01:44 SHELLFISH; - Home Meds: :44 hydrocodone-acetaminophen 10-325 mg/15 mL(15 mL) Oral soln 15 mL every 6 hours tw5 [Active]; lisinopril Oral once daily [Active]; - PMHx: 01:44 Chronic pain; tw5 - PSHx: 01:44 facial reconstruction; Spinal surgery; - Immunization history:: Flu vaccine is up to date. - Social history:: Smoking status: Patient denies any tobacco usage or history of. Screenin:46 [facility] ED Fall Risk Assessment (Adult) History of falling in the last 3 months, bb including since admission No falls in past 3 months (0 pts) Score/Fall Risk Level 0 - 2 = Low Risk Oriented to surroundings, Maintained a safe environment. Abuse screen: Denies threats or abuse. Nutritional screening: No deficits noted. Tuberculosis screening: No symptoms or risk factors identified. Assessment: 01:46 General: Appears in no apparent distress. obese, Behavior is calm, cooperative, Reports bb intermittent headache today with sharp pain to the upper left side of his chest currently he is not experiencing any pain. Pain: Denies pain. Neuro: Level of Consciousness is awake, alert, obeys commands, Oriented to person, place, time, situation. Cardiovascular: Capillary refill < 3 seconds Patient's skin is warm and dry. Respiratory: Respiratory effort is even, unlabored, Respiratory pattern is Breath sounds are clear bilaterally. GI: No signs and/or symptoms were reported involving the gastrointestinal system. Abdomen is obese. Derm: Skin is dry, Skin is normal, Skin temperature is warm. Musculoskeletal: Circulation, motion, and sensation intact. 03:19 Reassessment: Patient is alert, oriented x 3, equal unlabored respirations, skin bb warm/dry/pink. awaiting diagnostic results. 04:51 Reassessment: Patient is alert, oriented x 3, equal unlabored respirations, skin bb warm/dry/pink. 05:09 Reassessment: Patient is alert, oriented x 3, equal unlabored respirations, skin bb warm/dry/pink. pt verbalized understanding of and agrees to plan of care discharge instructions given pt ambulated with steady gait to exit. Vital Signs: 01:42 BP 121 / 82; Pulse 62; Resp 18; Temp 98.2; Pulse Ox 100% ; Weight 129.27 kg; Height 5 tw5 ft. 4 in. (162.56 cm); Pain 0/10; 03:17 BP 114 / 68; Pulse 56; Resp 16 S; Pulse Ox 96% on R/A; bb 04:51 BP 126 / 83; Pulse 60; Resp 16 S; Pulse Ox 100% on R/A; bb 01:42 Body Mass Index 48.92 (129.27 kg, 162.56 cm) tw5 ED Course: 01:30 Patient arrived in ED. jj6 01:31 Roxi Barnes MD is Attending Physician. sd2 01:44 Triage completed. 01:44 Arm band placed on. 01:46 Katharine Humphrey, RN is Primary Nurse. bb 01:46 Patient has correct armband on for positive identification. Placed in gown. Bed in low bb position. Call light in reach. Pulse ox on. NIBP on. 02:32 Inserted saline lock: 22 gauge in right hand, using aseptic technique. Blood collected. 02:32 Magnesium Sent. as6 02:32 Troponin High Sensitivity Sent. 02:32 BMP Sent. 02:32 CBC with Diff Sent. as6 05:10 No provider procedures requiring assistance completed. IV discontinued, intact, bb bleeding controlled, No redness/swelling at site. Pressure dressing applied. Administered Medications: No medications were administered Medication: :46 VIS not applicable for this client. bb Outcome: 05:03 Discharge ordered by . la1 05:10 Discharged to home ambulatory. bb 05:10 Condition: stable 05:10 Discharge instructions given to patient, Instructed on discharge instructions, follow up and referral plans. Demonstrated understanding of instructions, follow-up care. 05:11 Patient left the ED. bb Signatures: Katharine Humphrey, RN RN bb Eleuterio Nixon, AIRCRAFT LOG CLERK-C AIRCRAFT LOG CLERK-Juanita Spencer tw5 Trinh Castro jj6 Olayinka Hollis RN RN as6 Roxi Barnes MD MD sd2
--- NOTE | 2022-11-12 05:04 | EDPHYS ---
Physician Documentation [facility] Name: Ruben Alamo Age: 46 yrs Sex: Male : 1975 Arrival Date: 11/12/2022 Time: 01:30 Bed 7 Private MD: ED Physician Roxi Barnes HPI: 11/12 03:26 This 46 yrs old Black Male presents to ER via Ambulatory with complaints of Headache. sd2 03:26 46 yo M presents with CC of headache and chest pain. Reports intermittent sharp sd2 pinpoint left sided chest pain that occurs and lasts approximately 5 mins with an associated very mild headache. Denies SOB, nausea, vomiting, diaphoresis. . Historical: - Allergies: :44 Iodine; tw5 01:44 PENICILLINS; tw5 01:44 SHELLFISH; tw5 - Home Meds: 01:44 hydrocodone-acetaminophen 10-325 mg/15 mL(15 mL) Oral soln 15 mL every 6 hours tw5 [Active]; lisinopril Oral once daily [Active]; - PMHx: :44 Chronic pain; tw5 - PSHx: 01:44 facial reconstruction; Spinal surgery; tw5 - Immunization history:: Flu vaccine is up to date. - Social history:: Smoking status: Patient denies any tobacco usage or history of. ROS: 03:26 Constitutional: Negative for fever, chills, and weight loss, Eyes: Negative for injury, sd2 pain, redness, and discharge, Cardiovascular: Positive for chest pain, Negative for palpitations, and edema, Respiratory: Negative for shortness of breath, cough, wheezing. Abdomen/GI: Negative for abdominal pain, nausea, vomiting, diarrhea. MS/Extremity: Negative for injury and deformity, Skin: Negative for injury, rash, and discoloration, Neuro: Positive for headache, Negative for numbness and tingling. Psych: Negative for depression, anxiety, suicide ideation, homicidal ideation, and hallucinations. Exam: 03:26 Constitutional: This is a well developed, well nourished patient who is awake, alert, sd2 and in no acute distress. Head/Face: Normocephalic, atraumatic. Eyes: EOMI, normal conjunctiva bilaterally Chest/axilla: Normal chest wall appearance and motion. Nontender with no deformity. Cardiovascular: Regular rate and rhythm with a normal S1 and S2. No gallops, murmurs, or rubs. 2+ distal pulses. Respiratory: Lungs have equal breath sounds bilaterally, clear to auscultation and percussion. No rales, rhonchi or wheezes noted. No increased work of breathing, no retractions or nasal flaring. 03:26 Abdomen/GI: Soft, non-tender, with normal bowel sounds. No guarding or rebound. No sd2 evidence of tenderness throughout. Skin: Warm, dry with normal turgor. Normal color with no rashes, no lesions, and no evidence of cellulitis. MS/ Extremity: Pulses equal, no cyanosis. Neurovascular intact. Full, normal range of motion. Ambulatory without difficulty. Psych: Awake, alert, with orientation to person, place and time. Behavior, mood, and affect are within normal limits. 03:26 ECG was reviewed by the Attending Physician. NSR, rate 60, no STEMI criteria Vital Signs: 01:42 BP 121 / 82; Pulse 62; Resp 18; Temp 98.2; Pulse Ox 100% ; Weight 129.27 kg; Height 5 tw5 ft. 4 in. (162.56 cm); Pain 0/10; 03:17 BP 114 / 68; Pulse 56; Resp 16 S; Pulse Ox 96% on R/A; bb 04:51 BP 126 / 83; Pulse 60; Resp 16 S; Pulse Ox 100% on R/A; bb 01:42 Body Mass Index 48.92 (129.27 kg, 162.56 cm) tw5 MDM: 01:53 Patient medically screened. sd2 03:26 Differential diagnosis: Differential diagnosis includes but is not limited to: Tension sd2 headache, migraine headache, intracranial hemorrhage, dehydration, electrolyte abnormality, musculoskeletal, meningitis among others. Data reviewed: vital signs, nurses notes. 11/12 02:10 Order name: CBC with Diff 2 11/12 02:10 Order name: BMP sd2 11/12 02:10 Order name: Magnesium sd2 11/12 02:10 Order name: Troponin High Sensitivity 2 11/12 02:43 Order name: CBC with Automated Diff; Complete Time: 03:14 EDMS 11/12 05:01 Order name: Basic Metabolic Panel; Complete Time: 05:03 EDMS 11/12 02:10 Order name: EKG - Nurse/Tech; Complete Time: 02:32 sd2 11/12 02:10 Order name: XRAY Chest (1 view) sd2 11/12 05:01 Order name: Troponin High Sensitivity; Complete Time: 05:03 EDMS 11/12 05:01 Order name: Magnesium; Complete Time: 05:03 EDMS Administered Medications: No medications were administered Disposition Summary: 11/12/22 05:03 Discharge Ordered Location: Home la1 Problem: new la1 Symptoms: are resolved la1 Condition: Stable la1 Diagnosis - Cephalgia la1 - Chest wall pain la1 Followup: sd2 - With: Private Physician - When: 2 - 3 days - Reason: Recheck today's complaints, Continuance of care, Re-evaluation by your physician Discharge Instructions: - Discharge Summary Sheet sd2 - Nonspecific Chest Pain, Adult sd2 - Chest Wall Pain sd2 - General Headache Without Cause sd2 Forms: - Medication Reconciliation Form la1 - Thank You Letter la1 Signatures: Dispatcher [employer] EDMS Eleuterio Nixon, JACQUE-C SUPERVISOR MACHINE SETTER-Cla1 Juanita Dobson tw5 Roxi Barnes MD MD sd2 Corrections: (The following items were deleted from the chart) 03:30 03:26 Constitutional: Negative for fever, chills, and weight loss, Eyes: Negative for sd2 injury, pain, redness, and discharge, Cardiovascular: Negative for chest pain, palpitations, and edema, Respiratory: Negative for shortness of breath, cough, wheezing. Abdomen/GI: Negative for abdominal pain, nausea, vomiting, diarrhea. MS/Extremity: Negative for injury and deformity, Skin: Negative for injury, rash, and discoloration, Neuro: Negative for headache, numbness and tingling. Psych: Negative for depression, anxiety, suicide ideation, homicidal ideation, and hallucinations, sd2
[2022-11-12 05:15] VITALS: TEMP 98.2
[2022-11-12 05:19] VITALS: BP 126/83; O2SAT 100
--- NOTE | 2022-11-13 12:38 | EKG ---
Test Date: 2022-11-12 Test Time: 02:26:31 Juvenile Corrections Officer: MEASUREMENT RESULTS: Intervals: Rate: 60 AL: 188 QRSD: 108 QT: 386 QTc: 386 [place]: P: 51 AL: 188 QRS: 22 T: 31 INTERPRETIVE STATEMENTS: Normal sinus rhythm Normal ECG Compared to ECG 03/26/2022 04:52:57 Sinus bradycardia no longer present Electronically Signed On 11-13-22 12:35:55 DERMATOLOGY TECHNICIAN by Kong Albright
--- NOTE | 2022-11-13 13:58 | RAD REPORT ---
EXAM DESCRIPTION: RAD - Chest Single View - 11/12/2022 2:41 am CLINICAL HISTORY: CHEST PAIN COMPARISON: 05/01/2022 FINDINGS: Single frontal radiograph view of the chest. Cardiomediastinal silhouette: Normal size and contour. Lungs: No consolidation, pneumothorax, or pleural effusion. Bones: No acute osseous abnormality. Leads overlie the chest. Upper abdomen: No abnormality identified. IMPRESSION: 1. No acute pulmonary process identified. Electronically signed by: Jose A Lewis 11/12/2022 4:24 AM CLEANER AND POLISHER Due to temporary technical issues with the PACS/Fluency reporting system, reports are being signed by the in house radiologists without review as a courtesy to insure prompt reporting. The interpreting radiologist is fully responsible for the content of the report.
== END 2022-11-12 05:11 | disposition home or self-care (01) ==
LOC: ER 01:27
DX: R51.9 Headache, unspecified (principal); R07.89 Other chest pain
CPT/HCPCS: 36415; 71045; 80048; 83735; 84484; 85025; 93005; 99283

== ENCOUNTER 2022-12-02 21:47 | Emergency (ER) | payer SELFPAY ==
--- OUTSIDE RECORDS SUMMARY | 2022-12-02 21:52 | XMS REPORT | Continuity of Care Document ---
:1975 Author Organization [facility] t Address [address] [place] [address] Care Team Providers Name Role Phone PCP, PATIENT DOES NOT HAVE A Primary Care Physician Unavailmiguel Reynolds MD, Arjun Cullen Attending Clinician ALBIN ROSAS Attending Clinician Unavailable Albin Purvis [...] [facility] 00:00: Memoria 00 l (LUF/LI V/SA) Body mass Body mass Problem Active 2017-11-07 Memoria index index 03:47:18 l (BMI) (BMI) [place] 45.0-49.9, 45.0-49.9, adult adult Active Problem 11/07/2017 Family Diagnostic Other Other Problem Active 2017-11-07 Memor ia chronic chronic 03:47:18 l pain pain Tavo Active Problem 11/07/2017 Family Diagnostic No known No known Disease Unive rs active active ity of problems problems [facility] Lumbago Lumbago Problem Active 2017-11-07 Me moria with with 03:47:18 l sciatica, sciatica, Herm marcus left side left side Active Problem 11/07/2017 Family Diagnostic Allergies, Adverse [...] INGREDI 8-16 ity of DERIVED 00:00: [place] [address] [place] [address] Branch [employer] Propensi Active Unknown - Uni vers h ty to See comments 816 ity of Derived adverse 00:00: [place] reaction 00 Medical s Branch No Known DA Active U [facility]ie 3-05 [place] s 00:00: Regiona 00 [facility] No Known DA Active U [facility] Allergie 3-05 [place] 00:00: Region [facility] N.BennyA. NAustin. Active Info Not Enrique elkin Available 10-25 l 00:00: 00 NO KNOWN Drug Active Univers ALLERGIE Class ity of S [facility] Social History Social Habit Start Date Stop Date Quantity Comments Source Tobacco use and 2022-06-18 2022-06-18 Smokeless tobacco [facility] exposure 00:00:00 00:00:00 non-user Exposure to 2022-05-20 2022-05-30 Not sure University SARS-CoV-2 00:00:00 20:57:00 [facility] (event) [place] Sex Assigned At [birth year] [facility] 00:00:00 00:00:00 Smoking Status Start Date Stop Date Source Tobacco smoking consumption unknown [facility] Never smoked tobacco [facility]spital Medications Ordered Filled Start Stop Current [...] 2022- No 50mg Q.5D Take 1 Meth wlili (VOLTAREN) 9-25 10-03 tablet (50 st 50 MG EC 00:00: 04:59 mg total) Hos byron tablet 00 :00 by mouth 2 l (two) times a day as needed (for pain and swelling. take w/ food) for up to 7 days. diclofenac 2-0 2022- No 50mg Q.5D Take 1 Meth willi (VOLTAREN) 9-25 10-03 tablet (50 st 50 MG EC 00:00: 04:59 mg total) Hos byron tablet 00 :00 by mouth 2 l (two) times a day as needed (for pain and swelling. take w/ food) for up to 7 days. diclofenac 2-0 2022- No 50mg Q.5D Take 1 Meth willi (VOLTAREN) 9-25 10-03 tablet (50 st 50 MG EC 00:00: 04:59 mg total) Hos byron tablet 00 :00 by mouth 2 l (two) times a day as needed (for pain and swelling. take w/ food) for up to 7 days. diclofenac 2-0 2022- No 50mg Q.5D Take 1 Meth willi (VOLTAREN) 9-25 10-03 tablet (50 st 50 MG EC 00:00: 04:59 mg total) Hos byron tablet 00 :00 by mouth 2 l (two) times a day as needed (for pain and swelling. take w/ food) for up to 7 days. lidocaine 202-0 2022- No 4mL Q.[id number] Apply 4 mL Methodi HCL 06-[id number] (lidocaine) 00:00: 04:59 3D 3 (three) Hospita 2 % 00 :00 times a l solution day for 3 days. Apply to cottonball and place it by toothache lidocaine 2021-0 2022- No 4mL Q.[id number] Apply 4 mL Methodi HCL 06-[id number] (lidocaine) 00:00: 04:59 3D 3 (three) Hospita 2 % 00 :00 times a l solution day for 3 days. Apply to cottonball and place it by toothache lidocaine 2021- No 4mL Q.[id number] Apply 4 mL Methodi HCL 06-[id number] (lidocaine) 00:00: 04:59 3D 3 (three) Hospita 2 % 00 :00 times a l solution day for 3 days. Apply to cottonball and place it by toothache lidocaine 2021- No 4mL Q.[id number] Apply 4 mL Methodi HCL 06-[id number] (lidocaine) 00:00: 04:59 3D 3 (three) Hospita 2 % 00 :00 times a l solution day for 3 days. Apply to cottonball and place it by toothache lidocaine 2021- No 4mL Q.[id number] Apply 4 mL Methodi HCL 06-[id number] (lidocaine) 00:00: 04:59 3D 3 (three) Hospita 2 % 00 :00 times a l solution day for 3 days. Apply to cottonball and place it by toothache lidocaine 2021- No 4mL Q.[id number] Apply 4 mL Methodi HCL 06-[id number] (lidocaine) 00:00: 04:59 3D 3 (three) Hospita 2 % 00 :00 times a l solution day for 3 days. Apply to cottonball and place it by toothache lidocaine 2021- No 4mL Q.[id number] Apply 4 mL Methodi HCL 06-[id number] (lidocaine) 00:00: 04:59 3D 3 (three) Hospita 2 % 00 :00 times a l solution day for 3 days. Apply to cottonball and place it by toothache butalbital- 2021- No 1{tbl} 1 tablet, Univers acetaminoph 05-31 Oral, ity of en-caff 02:30: 02:22 ONCE, 1 [place] (ESGIC) 00 :00 dose, On Medical 50-325-40 05/30/22 Bran ch mg tablet 1 at 2130, tablet CHRISTINA butalbital- 2021-0 Yes [id number] 1{tbl} Take 1 Univers acetaminoph 9-06 tablet by ity of en-caff 00:00: mouth [place] 50-325-40 00 every 6 Medical mg tablet (six) Branch hours as needed for Pain (scale 4-6) or Pain (scale 7-10). ondansetron 2021-2021- No 4mg Q8H Take 1 [...] for up to 30 days. ondansetron 2021-0 2- No 4mg Q8H Take 1 Met hodi ODT 05-20 tablet (4 st (ZOFRAN-ODT 00:00: 04:59 mg total) Hospita ) 4 MG 00 :00 by mouth l disintegrat every 8 ing tablet (eight) hours as needed for nausea or vomiting for up to 30 days. ondansetron 202-0 2022- No 4mg Q8H Take 1 Met hodi ODT 8-20 06-27 tablet (4 st (ZOFRAN-ODT 00:00: 04:59 mg total) Hospita ) 4 MG 00 :00 by mouth l disintegrat every 8 ing tablet (eight) hours as needed for nausea or vomiting for up to 30 days. ondansetron 202-0 2022- No 4mg Q8H Take 1 Met hodi ODT 806-20 tablet (4 st (ZOFRAN-ODT 00:00: 04:59 mg total) Hospita ) 4 MG 00 :00 by mouth l disintegrat every 8 ing tablet (eight) hours as needed for nausea or vomiting for up to 30 days. ondansetron 2-0 2022- No 4mg Q8H Take 1 Met [...] Heights ORAL 8-16 mouth. ity of 21:45: [address] Branch HYDROcodone 2021-0 Yes 1{tbl} Take [...] mg 00 :00 1 dose, On Medical Count Includes [facility] 04/23/22 at 1615, Routine metoclopram 2021- No 10mg 10 mg, Uni vers darren HCl 04-23 Intramuscu ity o f (REGLAN) 20:15: 20:45 [place] :00 1 dose, On Medi shannan 10 mg Count Includes [facility] 04/23/22 at 1515, CHRISTINA Hydrocodone Yes [place] 1 tablet Memoria -Acetaminop 2-14 Irfan as needed l hen 03:47: Tavo Garibay Carisoprodo 2017-0 Yes [place] 1 tablet Memoria l 2-14 Irfan as needed l 03:47: Tavo Garibay Meloxicam 0 Yes [place] 1 tablet Memoria 2-14 Irfan l 03:47: Tavo Garibay Hydrocodone 2017-0 Yes [place] 1 tablet Memoria [...] as needed l 03:47: Tavo Garibay Meloxicam 2018-0 Yes [place] 1 tablet Memoria 2-14 Irfan l 03:47: Hydrocodone 2018-0 Yes [place] 1 tablet Memoria -Acetaminop 2-14 Irfan as needed l hen 03:47: Carisoprodo 2018-0 Yes [place] 1 tablet Memoria l 2-14 Irfan as needed l 03:47: Meloxicam 2018-0 Yes [place] 1 tablet Memoria 2-14 Irfan l 03:47: Hydrocodone 2018-0 Yes [place] 1 tablet Memoria -Acetaminop 2-14 Irfan as needed l hen 03:47: Carisoprodo 2018-0 Yes [place] 1 tablet Memoria l 2-14 Irfan as needed l 03:47: Meloxicam 2018-0 Yes [place] 1 tablet Memoria 2-14 Irfan l 03:47: Acetaminoph 2018-0 Yes [place] 1 tablet Memoria [...] 00:00: Memoria 00 l (LUF/LI V/SA) Meloxicam 2018-0 Yes [place] 1 tablet Memoria 1-15 Irfan l 00:00: [place] 2018-0 Yes [place] 1 tablet Enrique elkin 1-15 Irfan as needed l 00:00: [place] 2018-0 Yes [place] 1 tablet Memor ia 1-15 Irfan as needed l 00:00: [place] 2018-0 Yes [place] 1 tablet Enrique elkin 1-15 Irfan as needed l 00:00: [place] 2018-0 Yes [place] 1 tablet Memor ia 1-15 Irfan as needed l 00:00: Meloxicam 2018-0 Yes [place] 1 tablet Memoria 1-15 Irfan l 00:00: [place] 2018-0 Yes [place] 1 tablet Enrique elkin 1-15 Irfan as needed l 00:00: [place] 2018-0 Yes [place] 1 tablet Memor ia 1-15 Irfan as needed l 00:00: Meloxicam 2018-0 Yes [place] 1 tablet Memoria 1-15 Irfan l 00:00: [place] 2018-0 Yes [place] 1 tablet Enrique elkin 1-15 Irfan as needed l 00:00: [place] 2018-0 Yes [place] 1 tablet Memor ia 1-15 Irfan as needed l 00:00: Meloxicam 2018-0 Yes [place] 1 tablet Memoria 1-15 Irfan l 00:00: [place] 2018-0 Yes [place] 1 tablet Enrique elkin [...] 2022-05-31 01:59:00 128 mm[Hg] Univer sity of [facility] Diastolic blood 2022-05-31 01:59:00 81 mm[facility]Hg] [facility] 2022-05-31 01:59:00 78 /min Universi ty [facility] Body temperature 2022-05-31 01:59:00 36.94 Amisha [facility] Respiratory rate 2022-05-31 01:59:00 18 /min [facility] Body height 2022-05-31 01:59:00 165.1 cm Universi ty [facility] Body weight 2022-05-31 01:59:00 127.007 kg Universi ty [facility] BMI 2022-05-31 01:59:00 46.59 [facility]m2 [facility] O[facility] saturation in 2022-05-31 01:59:00 95 /min [facility] Arterial blood by [facility] Pulse oximetry Branch Systolic blood 2022-05-10 02:39:00 148 mm[Hg] [facility] Diastolic blood 2022-05-10 02:39:00 84 mm[Hg] [facility] 2022-05-10 02:39:00 70 /min Universi ty [facility] Body temperature 2022-05-10 02:39:00 37.56 Amisha [facility] Respiratory rate 2022-05-10 02:39:00 18 /min [facility] Body height 2022-05-10 02:39:00 162.6 cm Universi ty [facility] Body weight 2022-05-10 02:39:00 127.007 kg Universi ty [facility] BMI 2022-05-10 02:39:00 48.06 kg/m2 [facility] Oxygen saturation in 2022-05-10 02:39:00 95 /min University of Arterial blood by [facility] Pulse oximetry Branch Body weight 2022-04-23 20:11:00 133.131 kg Universi ty [facility] BMI 2022-04-23 20:11:00 50.38 kg/m2 [facility] Systolic blood 2022-04-23 20:09:00 140 mm[Hg] Univer sity of pressure [facility] Diastolic blood 2022-04-23 20:09:00 81 mm[Hg] Unive rsity of [facility] Heart rate 2022-04-23 20:09:00 66 [facility] 2022-04-23 20:09:00 36.72 [facility] 2022-04-23 20:09:00 17 /min [facility] Body height 2022-04-23 20:09:00 162.6 cm [facility] O[facility] in 2022-04-23 20:09:00 97 /min University of Arterial blood by [facility] Pulse oximetry Branch Systolic blood 2022-06-18 15:20:24 157 mm[Hg] [facility] pressure Diastolic blood 2022-06-18 15:20:24 74 mm[Hg] [facility] pressure Heart rate 2022-06-18 15:20:24 53 /min [facility] Body temperature 2022-06-18 15:20:24 36.78 Amisha [facility] Respiratory rate 2022-06-18 15:20:24 16 /min [facility] Oxygen saturation in 2022-06-18 15:20:24 97 /min [facility] Arterial blood by Pulse oximetry Body height 2022-06-18 12:48:00 162.6 cm [facility] Body weight 2022-06-18 12:48:00 127.007 kg [facility] BMI 2022-06-18 12:48:00 48.06 kg/m2 [facility] Systolic blood 2022-05-21 00:33:00 132 mm[Hg] [facility] pressure Diastolic blood 2022-05-21 00:33:00 64 mm[Hg] [facility] pressure Heart rate 2022-05-21 00:33:00 64 /min [facility] Oxygen saturation in 2022-05-21 00:33:00 98 /min [facility] Arterial blood by Pulse oximetry Body temperature 2022-05-20 23:53:12 36.17 Amisha [facility] Respiratory rate 2022-05-20 23:53:12 18 /min [facility] Body height 2022-05-20 23:52:00 162.6 cm [facility] Body weight 2022-05-20 23:52:00 127.007 kg [facility] BMI 2022-05-20 23:52:00 48.06 kg/m2 [facility] Weight 2017-10-25 15:00:00 [facility] Height 2017-10-25 15:00:00 [facility] Temperature Oral (F) 2017-10-25 15:00:00 97.8 F [facility] Heart Rate 2017-10-25 15:00:00 [facility] Diastolic (mm Hg) 2017-10-25 15:00:00 [facility] Systolic (mm Hg) 2017-10-25 15:00:00 [facility] Body Temperature 2017-10-21 12:00:00 97.5 F [facility] (LUF/BLANCA/SA) Respiratory Rate 2017-10-21 12:00:00 20 /min [facility] (F/BLANCA/SA) O2% BldC Oximetry 2017-10-21 12:00:00 98 % [facility] (LUF/BLANCA/SA) BP Systolic 2017-10-21 12:00:00 132 mm[Hg] [facility] (LUF/BLANCA/SA) BP Diastolic 2017-10-21 12:00:00 78 mm[Hg] [facility] (LUF/BLANCA/SA) Height 2017-10-21 12:00:00 64 in [facility] (LUF/BLANCA/SA) Weight Measured 2017-10-21 12:00:00 282.19 lbs [facility] (LUF/BLANCA/SA) BMI (Body Mass 2017-10-21 12:00:[address] [facility] (LUF/BLANCA/SA) Weight 2017-10-08 15:45:00 [facility] [place] Height 2017-10-08 15:45:00 [facility] Temperature Oral (F) 2017-10-08 15:45:00 96.8 F [facility] [place] Heart Rate 2017-10-08 15:45:00 [facility] Diastolic (mm Hg) 2017-10-08 15:45:00 Mem orial [facility] Systolic (mm Hg) 2017-10-08 15:45:00 Enrique rial [facility] Procedures Procedure Date / Time Performing Clinician Source Performed CT MAXILLOFACIAL WO 2022-06-18 14:48:32 [facility] CONTRAST CONSENT/REFUSAL FOR 2022-05-31 01:55:15 Doctor Unassigned, No [facility] [place] DIAGNOSIS AND TREATMENT Name Medical Branch CT CERVICAL SPINE WO 2022-05-21 01:24:51 [facility] CONTRAST CT HEAD WO CONTRAST 2022-05-21 01:15:40 [facility] POC GLUCOSE 2022-05-21 00:33:00 [facility] NOTICE OF PRIVACY 2022-05-10 02:37:04 Doctor Unassigned, No Univ [facility] [place] PRACTICES Name Medical Branch CONSENT/REFUSAL FOR 2022-05-10 02:35:02 Doctor Unassigned, No [facility] [place] DIAGNOSIS AND TREATMENT Name Medical Branch CONSENT/REFUSAL FOR 2022-04-23 20:00:28 Doctor Unassigned, No [facility] [place] DIAGNOSIS AND TREATMENT Name Medical Branch Plan of Care Planned Activity Planned Date Details Comments Source Future Scheduled 2022-09-08 [facility] 15:04:49 screening (procedure) [code = 067407179] Future Scheduled 2022-09-08 COVID-19 VACCINE (3 [facility] 15:04:49 - Booster for Pfizer series) [code = COVID-19 VACCINE (3 - Booster for Pfizer series)] Future Scheduled 2022-09-08 INFLUENZA VACCINE [facility] 15:04:49 [code = INFLUENZA VACCINE] Future Scheduled 2022-09-08 [facility] 15:04:49 screening (procedure) [code = 384630944] Future Scheduled 2022-09-08 COVID-19 VACCINE (3 [facility] 15:04:49 - Booster for Pfizer series) [code = COVID-19 VACCINE (3 - Booster for Pfizer series)] Future Scheduled 2022-09-08 [facility]ZA VACCINE [facility] 15:04:49 [code = INFLUENZA VACCINE] Future Scheduled 2022-09-08 [facility] 15:04:49 screening (procedure) [code = 551480304] Future Scheduled 2022-09-08 COVID-19 VACCINE (3 [facility] Test 15:04:49 - Booster for Pfizer series) [code = COVID-19 VACCINE (3 - Booster for Pfizer series)] Future Scheduled 2022-09-08 INFL[facility]ENZA VACCINE [facility] 15:04:49 [code = INFLUENZA VACCINE] Future Scheduled 2022-09-08 [facility] 15:04:49 screening (procedure) [code = 364802436] Future Scheduled 2022-09-08 COVID-19 VACCINE (3 [facility] Test 15:04:49 - Booster for Pfizer series) [code = COVID-19 VACCINE (3 - Booster for Pfizer series)] Future Scheduled 2022-09-08 INFLUENZA VACCINE [facility] 15:04:49 [code = INFLUENZA VACCINE] Future Scheduled 2022-06-18 HEPATITIS B [facility] 09:25:33 VACCINES (1 of 3 - 3-dose series) [code = HEPATITIS B VACCINES (1 of 3 - 3-dose series)] Future Scheduled 2022-06-18 [facility] 09:25:33 screening (procedure) [code = 313392478] Future Scheduled 2022-06-18 COVID-19 VACCINE (3 [facility] 09:25:33 - Booster for Pfizer series) [code = COVID-19 VACCINE (3 - Booster for Pfizer series)] Future Scheduled 2022-06-18 INFLUENZA VACCINE [facility] 09:25:33 [code = INFLUENZA VACCINE] Future Scheduled 2022-06-18 [facility]IS [facility] 09:25:33 VACCINES (1 of 3 - 3-dose series) [code = HEPATITIS B VACCINES (1 of 3 - 3-dose series)] Future Scheduled 2022-06-18 [facility] 09:25:33 screening (procedure) [code = 900961920] Future Scheduled 2022-06-18 COVID-19 VACCINE (3 [facility] 09:25:33 - Booster for Pfizer series) [code = COVID-19 VACCINE (3 - Booster for Pfizer series)] Future Scheduled 2022-06-18 INFLUENZA VACCINE [facility] 09:25:33 [code = INFLUENZA VACCINE] Future Scheduled 2022-06-18 [facility]IS [facility] 09:25:33 VACCINES (1 of 3 - 3-dose series) [code = HEPATITIS B VACCINES (1 of 3 - 3-dose series)] Future Scheduled 2022-06-18 [facility] 09:25:33 screening (procedure) [code = 446515693] Future Scheduled 2022-06-18 COVID-19 VACCINE (3 [facility] Test 09:25:33 - Booster for Pfizer series) [code = COVID-19 VACCINE (3 - Booster for Pfizer series)] Future Scheduled 2022-06-18 INFLUENZA VACCINE [facility] 09:25:33 [code = INFLUENZA VACCINE] Future Scheduled 2022-06-09 [facility]IS [facility] 18:36:38 VACCINES (1 of 3 - 3-dose series) [code = HEPATITIS B VACCINES (1 of 3 - 3-dose series)] Future Scheduled 2022-06-09 [facility] 18:36:38 screening (procedure) [code = 418109588] Future Scheduled 2022-06-09 COVID-19 VACCINE (3 [facility] Test 18:36:38 - Booster for Pfizer series) [code = COVID-19 VACCINE (3 - Booster for Pfizer series)] Future Scheduled 2022-06-09 INFLUENZA VACCINE [facility] 18:36:38 [code = INFLUENZA VACCINE] Future Scheduled 2022-05-25 [facility]ITIS [facility] 07:52:22 VACCINES (1 of 3 - 3-dose series) [code = HEPATITIS B VACCINES (1 of 3 - 3-dose series)] Future Scheduled 2022-05-25 [facility] 07:52:22 screening (procedure) [code = 604264942] Future Scheduled 2022-05-25 COVID-19 VACCINE (3 [facility] Test 07:52:22 - Booster for Pfizer series) [code = COVID-19 VACCINE (3 - Booster for Pfizer series)] Future Scheduled 2022-05-25 INFLUENZA VACCINE [facility] Test 07:52:22 [code = INFLUENZA VACCINE] Future Scheduled 2022-05-25 [facility]ITIS [facility] 07:52:22 VACCINES (1 of 3 - 3-dose series) [code = HEPATITIS B VACCINES (1 of 3 - 3-dose series)] Future Scheduled 2022-05-25 [facility] 07:52:22 screening (procedure) [code = 030100269] Future Scheduled 2022-05-25 [email or web address] 07:52:22 - Booster for Pfizer series) [code = COVID-19 VACCINE (3 - Booster for Pfizer series)] Future Scheduled 2022-05-25 INFLUENZA VACCINE [email or web address] Test 07:52:22 [code = INFLUENZA VACCINE] Encounters Start End Encounter Admission Attending Care Care Encounter Source Date/Time Date/Time Type Type Clinicians Facility Department ID 2022-12-02 Outpatient [id number] Memoria 21:50:02 [id number]-[id number]-[id number] 77E-4F82- 8 l -8693-8E8 [id number] 693-8E8C26 Tavo [id number] 6F6 [id number] 2022-11-12 Outpatient [id number] Memoria 01:29:42 ADA0-43F6 A0-69N0-L98 DA0-43F6- A l -W126-12C 6-63W7L14AN 116-87F8D9 Tavo [id number] C1D 5BBC1D 2022-10-16 Outpatient [id number] [id number] Memoria 06:48:40 0YG0-2665 B4-4798-8A7 AB4-4798- 8 l -9O3N-61D F-77W7AN548 U3D-87B7AX Tavo [id number] D64 698D64 2022-09-25 Outpatient [id number] Memoria 18:40:25 17O2-4O12 D1-0B11-91R 8F2-5H04- 8 l -89BD-1A5 D-8B9DEIT55 9BD-1A5DCD [place] [id number] 6A3 E256A3 2022-07-11 Outpatient [id number] F00D-5 Memoria 20:33:16 43B1-10PS F4-47BE-8F8 8O5-16SF- 8 l -5I1C-64C F-19CEEN315 T1N-77TLZK Tavo [id number] FAD 309FAD 2022-07-05 Outpatient [id number] B7D1-4 Memoria 21:55:55 31C1-53Q4 E6-57J1-C42 8J0-82L8- A l -C59U-7U6 A-6B569EQD3 53A-6P583J Tavo 74ORI1H5C F6F BA1F6F 2022-06-20 Outpatient [id number]- [id number]-[id number] FEAA B0FE-B Mem[facility] 20:55:03 V61W-7VTV 9E-4FBC-9E6 39E-4FBC- 9 l -4M24-B70 0-O78QEB086 N62-E57MBA Tavo [id number] 7B9 9867B9 2022-06-18 Outpatient [id number] 41FC-3 Memoria 07:44:31 7E12-7NPQ 17-4EED-9D8 G01-9JLH- 9 l -2G68-P6L 1-P6NI627B9 F01-A4IS19 Tavo [id number] A09 2A0A09 2022-06-14 Outpatient [id number] 73A9-D Memoria 22:44:21 N32B-0J12 0A-1T23-241 90A-4A19- 9 l -9064-22B 4-94L094Q6R 064-74V046 [place] [id number] 120 J5A410 2022-06-08 Outpatient [id number] F051 4BD7-F Memoria 21:22:44 C09F-3NA7 4B-5PX7-606 44B-4BC4- 8 l -819B-E8C B-[id number] 19B-U3J741 Tavo [id number] C63 53AC63 2022-06-03 Outpatient [id number]- [id number] ABCB 93A3-4 Memoria 01:33:52 4565-43DE 65-43DE-92E 565-43DE- 9 l -32K7-479 7-501XY72HW 8H3-828UV9 [place] [id number] 217 8ZS801 2022-05-30 Outpatient [id number] 114E F493-4 Memoria 20:55:52 5G48-785G 39-438E-9B8 N55-039U- 9 l -6L22-6SB 0-2LCA3F1VQ A95-4ANN8B Tavo I9F9UUV02 F41 4BEF41 2022-05-20 Outpatient [id number] A21D-1 Memoria 18:55:15 1FAA-4CF3 AA-4TG3-99V FAA-4CF3- 8 l -80ED-A77 D-F22Z33212 0ED-A77A25 [place] [id number] 4313-09-27 Outpatient [id number] [id number] Memoria 14:21:52 44Z1-7GRY F0-4CEA-948 2J7-3MEL- 9 l -9486-B77 6-H08PBC4K2 486-B77BBD Tavo YOQ0M57W5 4C4 1C14C4 2021-06-20 Outpatient [id number] BE16-8 Memoria 14:21:45 8434-49AE 34-49AE-95B 434-49AE- 9 l -95BD-57D D-52QZ24G4Z 5BD-57DA06 Tavo [id number] 032 L3R594 2021-05-30 Outpatient [id number] [id number] Memoria 15:44:20 DAF5-4596 F5-4596-BFE AF5-4596- B l -BFE1-51A 1-82VNR66VO FE1-51ACA1 Tavo PX71VS1NT 1BA 9CA1BA 2020-01-20 Inpatient [facility] [id number] [facility] 15:25:00 21 [facility] 2019-12-16 Inpatient [facility] [id number] [facility] 17:49:00 32 [facility] 2019-12-12 Inpatient [facility] [id number] [facility] 08:32:00 83 [facility] 2019-11-27 Inpatient [facility] [id number] [facility] 07:33:00 06 [facility] 2022-06-18 2022-06-18 Emergency Rodolfo, 1.2.840.1 [id number] Methodi 07:52:00 10:32:[address] [facility]430.[facility].7 [facility] .3.281871 l .8 2022-06-18 2022-06-18 Emergency Rodolfo, 1.2.840.1 [id number] Methodi 07:52:00 10:32:[address] [facility] 3.430.2.7 [facility] .3.543026 l .8 2022-05-30 2022-05-30 Emergency X JASBIR, [facility] ERT [id number] [facility] 21:02:00 21:53:00 ALBIN ibrahim of [facility] 2022-05-30 2022-05-30 Emergency Jasbir, [facility] [id number] [facility] 21:02:00 21:53:00 Albin RUSSO 350.1.13.10 i ty [facility] 4.2.7.2.686 [facility] [id number] [address] 2022-05-20 2022-05-20 Emergency Bárbara 1.2.840.1 [id number] Methodi 19:29:00 21:04:00 Kaycee keith [address]92.[address] 3.430.2.7 Hospit a .3.922484 l .8 2022-05-20 2022-05-20 Emergency [place] 1.2.840.1 [id number] Methodi 19:29:00 21:04:[address] 3.430.2.7 Hospit a .3.917370 l .8 2022-05-20 2022-05-20 Travel 1.2.840.1 1.2.518.703 [id number] Methodi 00:00:00 00:00:[address] 3.430.2.7 0.2.7.3.698 Ho spita .3.055231 084.8 l .8 2022-05-20 2022-05-20 Travel 1.2.840.1 1.2.407.906 [id number] Methodi 00:00:00 00:00:[address] 3.430.2.7 0.2.7.3.698 Ho spita .3.371105 084.8 l .8 2022-05-09 2022-05-09 Emergency [facility] [id number] Univers 21:45:00 21:46:00 CHER ibrahim [facility] 2022-05-09 2022-05-09 Emergency Jessy [facility] 1.2.840.114 [id number] Univers 21:45:00 21:46:00 Cher RUSSO 350.1.13.10 patrice [facility] 4.2.7.2.686 [facility] [id number] [address] 2022-04-23 2022-04-23 Emergency X KAREN [facility] ERT [id number] Univers 15:11:00 15:52:00 BO fu [facility] 2022-04-23 2022-04-23 Emergency Prosperity, [facility] 1.2.452.330 [id number] Univers 15:11:00 15:52:00 Bo RUSSO 350.1.13.10 ity coco PERSAUD 4.2.7.2.686 [facility] [id number] [place] [address] [place] 2021-09-14 2021-09-14 Outpatient FERGUSON_JO [facility] [address] [place] 02[place]13[place]00 [place] [id number] [facility] 2021-09-08 2021-09-08 Outpatient FERGUSON_JO MEHOP [facility] [address] [place] 02:19:00 02:19[place]00 [place] [address] [facility] 2017-11-01 2017-11-01 Outpatient Family Family [id number] eClinic 10:47:00 10:47:00 [facility] 2017-10-25 2017-10-25 Outpatient Family Family [id number] eClinic 09:00:00 09:00:00 [facility] 2017-10-21 2017-10-21 PAIN IN NIKKI, [facility] [id number] 11:51:00 14:48:00 [facility] 2017-10-21 2017-10-21 PAIN IN [facility]KKI, [facility] [id number] [facility] 11:51:00 14:48:00 [facility]F/[place] [address] 2017-10-08 2017-10-08 Outpatient Family Family [id number] eClinic 09:45:00 09:45:00 [facility] Clinic Results Test Description Test Time Test Comments Results Result Comments Source POC glucose 2022-05-21 00:34:00 Test Item Value Reference Range Interpretation Comme nts POC glucose (test code = 20372-4) 217 mg/dL 65-100 H Public Works Director Name: Zach LindsayGalina ID: [id number] Lab Interpretation (test code = Abnormal 07857-3) [facility] [id number] 00:34:00 Test Item Value Reference Range Interpretation Comments POC glucose (test code = 217 mg/dL 65-100 H Ope rator Name: Zach Johnston) BinosDevice ID: [id number] Lab Interpretation (test Abnormal code = 14918-0) [facility] [id number] 00:34:00 Test Item Value Reference Range Interpretation Comments POC glucose (test code = 217 mg/dL 65-100 H Ope rator Name: Zach Johnston) BinosDevice ID: [id number] Lab Interpretation (test Abnormal code = 43480-5) [facility]2022-08-28 00:34:00 Test Item Value Reference Range Interpretation Comments POC glucose (test code = 217 mg/dL 65-100 H Ope rator Name: Zach Johnston) BinosDevice ID: [id number] Lab Interpretation (test Abnormal code = 37396-5) [facility]2022-08-28 00:34:00 Test Item Value Reference Range Interpretation Comments POC glucose (test code = 217 mg/dL 65-100 H Ope rator Name: Zach Johnston) BinosDevice ID: [id number] Lab Interpretation (test Abnormal code = 67173-6) [facility] [id number] 00:34:00 Test Item Value Reference Range Interpretation Comments POC glucose (test code = 217 mg/dL 65-100 H Ope rator Name: Zach Johnston) BinosDevice ID: [id number] Lab Interpretation (test Abnormal code = 91979-7) [facility]2022-08-28 00:34:00 Test Item Value Reference Range Interpretation Comments POC glucose (test code = 217 mg/dL 65-100 H Ope rator Name: Zach Johnston) BinosDevice ID: [id number] Lab Interpretation (test Abnormal code = 93066-4) [facility]2022-08-28 00:34:00 Test Item Value Reference Range Interpretation Comments POC glucose (test code = 217 mg/dL 65-100 H Ope rator Name: Zach Johnston) BinosDevice ID: [id number] Lab Interpretation (test Abnormal code = 09122-4) [facility] [id number] 00:34:00 Test Item Value Reference Range Interpretation Comments POC glucose (test code = 217 mg/dL 65-100 H Ope rator Name: Zach Duggan53-7) BinosDevice ID: [id number] Lab Interpretation (test Abnormal code = 95090-7) [facility] [id number] 00:34:00 Test Item Value Reference Range Interpretation Comments POC glucose (test code = 217 mg/dL 65-100 H Ope rator Name: Zach Duggan53-7) BinosDevice ID: [id number] Lab Interpretation (test Abnormal code = 26143-0) [facility]- CT HEAD/BRAIN W/O [id number] 18:19:00 Patient Name: VIMAL BARROSO Unit No: [id number] EXAMS: CPT CODE: [id number] CT HEAD/BRAIN W/O CONT 68563 CLINICAL INFORMATION: Moderate frontal headaches. Coughing. Dictation [...] 45.04 DLP: 757.79 Trnscrpt: 12/16/2019 (1818) [facility]irt[facility] Jessica NAME: VIMAL BARROSO [address] [place] [address] PHYS: Germania Isaacs NP [place] [address] : 1975 AGE:44 SEX: M LOC: NohemyERS PHONE #: [phone] EXAM DATE: 12/16/2019 STATUS: PRE ER FAX #: [phone] RAD #: D/C DT PAGE 1 Signed Report Patient Name: VIMAL BARROSO Unit No: [id number] EXAMS: CPT CODE: [id number] CT HEAD/BRAIN W/O CONT 15730 (Continued) Orig Print D/T: S: 12/16/2019 (182) [facility] Jessica NAME: VIMAL BARROSO [address] [place] [address] PHYS: Germania Isaacs NP [place], [place] [address] : 1975 AGE: 44 SEX: M LOC: EMILY PHONE #: [phone] EXAM DATE: 12/16/2019 STATUS: PRE ER FAX #: [phone] RAD #: D/C DT PAGE 2 Signed Report- XR CHEST 2 [id number] 09:11:00 FAX: Germania Engel NP [phone] [place]: St: REG Patient Name: VIMAL BARROSO Unit No: [id number] EXAMS: CPT CODE: [id number] XR CHEST 2 V 27695 - XR CHEST 2 V LOCATION: T18 INDICATION:Cough The lungs are well expanded and free of infiltrates. The costophrenic recesses are sharp without effusion. The heart, mediastinum and bony structures are within normal limits. Cervical spine fusion plate noted. IMPRESSION: No active disease. at 0911 Reportedand signed by: Zach Rubi D.O. CC: Germania Engel POLICE AIDE Dictated Date/Time: 12/12/2019 (910)Technologist: Shannan Schmitz Transcribed Date/Time: 12/12/2019 (910) By: Joanna Orig Print D/T: S:12/12/2019 (0914) LORETA Lopez NAME: VIMAL BARROSO [address] [place] [address] Blvd PHYS: Lore Isaacs, [place] [address] : 1975 AGE: 44 SEX: M LOC: B.ERS PHONE #: [phone] EXAM DATE: 12/12/2019 STATUS: REG ER FAX #: [phone] RAD NO: DC Dt: PAGE 1 Signed ReportSPINE LUMBAR SACR 2017-04-08 13:37:[address] [address]HPBRNZDHBF IMAGING REPORTPatient Name: Gustavo BARROSO of Service: [id number]: 41 Sex: M Order #: [id number] [facility] 1975 [facility] Number: [id number] Record Number: [id number] Hospital Number: [id number] Physician: Agatha CROW Physician: RUBY TREVIÑO LUMBAR [...]
--- NOTE | 2022-12-02 22:50 | RAD REPORT ---
EXAM DESCRIPTION: RAD - Chest Single View - 12/02/2022 10:34 pm CLINICAL HISTORY: CHEST PAIN COMPARISON: Chest Single View dated 11/12/2022; Chest Pa And Lat (2 Views) dated 05/01/2022; Chest Sing le View dated 03/26/2022 FINDINGS: Lines: None. Lungs: No evidence of edema or pneumonia. Pleural: No significant pleural effusions or pneumothorax. Cardiac: The heart size is within normal limits. Mediastinum: Within normal limits. Bones: No acute fractures. Other: None IMPRESSION: No acute cardiopulmonary disease.
[2022-12-02 23:51] LABS: Absolute Lymphocytes (CBC) 2.4 K/uL (0.7-4.9); Hematocrit 40.9 % (39.6-49.0); Lymphocytes % 31.3 % (15.3-44.8); MCV 89.3 fL (80-100); MPV 9.7 fL (7.6-11.3); RBC Red Blood Cell Count 4.58 M/uL (4.33-5.43)
[2022-12-03 00:01] LABS: Barbiturates NEGATIVE (NEGATIVE); Benzodiazepines NEGATIVE (NEGATIVE); Cocaine NEGATIVE (NEGATIVE); METHAMPHETAM NEGATIVE (NEGATIVE); Methadone NEGATIVE (NEGATIVE); Opiates NEGATIVE (NEGATIVE); Phencyclidine NEGATIVE (NEGATIVE); THC Cannibis NEGATIVE (NEGATIVE)
[2022-12-03 00:10] LABS: Albumin 3.6 g/dL (3.4-5.0); Bilirubin Direct 0.2 mg/dL (0-0.2); Bilirubin Total 0.8 mg/dL (0.2-1.0); Magnesium 2.1 mg/dL (1.6-2.4); Potassium 3.4 mmol/L (3.5-5.1); Protein, Total 7.6 g/dL (6.4-8.2); Troponin High Sensitivity 6.7 pg/mL (<58.9)
[2022-12-03] MEDS ORDERED: ASPIRIN 81 MG CHEWABLE TABLET ONE (00:13)
[2022-12-03] MEDS ORDERED: NA CHLORIDE 0.9% 500 ML ONE (00:13)
[2022-12-03 00:22] LABS: Urine Blood Negative (Negative); Urine Glucose Negative (Negative); Urine Protein Negative (Negative); Urine Specific Gravity >=1.030 (1.005-1.030); Urine pH 5.5 (5.0-7.0)
[2022-12-03] MEDS ORDERED: POTASSIUM 25 MEQ EFFERV TAB ONE (00:42)
[2022-12-03 03:31] VITALS: TEMP 98
[2022-12-03 03:32] VITALS: BP 118/74; O2SAT 100
--- NOTE | 2022-12-04 13:06 | EKG ---
Test Date: 2022-12-02 Test Time: 22:19:45 Director Nicu: VADIM MEASUREMENT RESULTS: Intervals: Rate: 63 HI: 190 QRSD: 102 QT: 386 QTc: 395 [place]: P: 52 HI: 190 QRS: 27 T: 32 INTERPRETIVE STATEMENTS: Normal sinus rhythm Normal ECG Compared to ECG 11/12/2022 02:26:31 No significant changes Electronically Signed On 12-04-22 13:03:06 CDT by Kong Albright
--- NOTE | 2022-12-15 16:18 | ER ---
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 Pt reports he was evaluated in this ED 1 month ago with no findings but did not follow up with cardiology. Coronavirus screen: Vaccine status: Patient reports receiving the 2nd dose of the covid vaccine. Client denies travel out of the [place] in the last 14 days. Ebola Screen: Patient negative for fever greater than or equal to 101.5 degrees Fahrenheit, and additional compatible Ebola Virus Disease symptoms Patient denies exposure to infectious person. Patient denies travel to an Ebola-affected area in the 21 days before illness onset. No symptoms or risks identified at this time. Initial Sepsis Screen: Does the patient meet any 2 criteria? No. Patient's initial sepsis screen is negative. Does the patient have a suspected source of infection? No. Patient's initial sepsis screen is negative. Risk Assessment: Do you want to hurt yourself or someone else? Patient reports no desire to harm self or others. Onset of symptoms was December 02, 2022 at 21:00. 22:07 Method Of Arrival: Ambulatory kb3 22:07 Acuity: LIZBETH 2 kb3 Triage Assessment: 22:09 General: Appears in no apparent distress. Behavior is calm, cooperative. Pain: kb3 Complains of pain in anterior aspect of left upper chest Pain does not radiate. Pain currently is 6 out of 10 on a pain scale. Quality of pain is described as sharp, Pain began 1 hour ago. Cardiovascular: Reports chest pain, Denies diaphoresis, fatigue, lightheadedness, nausea, palpitations, shortness of breath, syncope, vomiting, Heart tones present Capillary refill < 3 seconds Patient's skin is warm and dry. Pulses are 2+ in right radial artery and left radial artery. Respiratory: Breath sounds are clear bilaterally. GI: Patient currently denies abdominal pain, nausea, vomiting. Historical: - Allergies: 22:09 Iodine; kb3 22:09 PENICILLINS; kb3 22:09 SHELLFISH; kb3 - Home Meds: 22:09 ibuprofen 600 mg Oral tab 1 tab 3 times per day [Active]; lisinopril Oral once daily kb3 [Active]; - PMHx: 22:09 Chronic pain; kb3 - PSHx: 22:09 facial reconstruction; Spinal surgery; kb3 - Immunization history:: Adult Immunizations up to date, Client reports receiving the 2nd dose of the Covid vaccine. - Social history:: Smoking status: Patient denies any tobacco usage or history of. Screenin:30 [facility] ED Fall Risk Assessment (Adult) History of falling in the last 3 months, kb3 including since admission No falls in past 3 months (0 pts) Confusion or Disorientation No (0 pts) Intoxicated or Sedated No (0 pts) Impaired Gait No (0 pts) Mobility Assist Device Used No (0 pt) Altered Elimination No (0 pt) Score/Fall Risk Level 0 - 2 = Low Risk Oriented to surroundings, Maintained a safe environment, Educated pt \T\ family on fall prevention, incl call for assistance when getting out of bed, Assessed \T\ reinforced patient's understanding of fall precautions, Provided non-skid footwear, Hourly rounding (assess needs \T\ fall precautionary measures) done, Used ambulatory aids as needed (educated on \T\ assisted with). Abuse screen: Denies threats or abuse. Denies injuries from another. Nutritional screening: No deficits noted. Tuberculosis screening: No symptoms or risk factors identified. Assessment: 22:20 General: Appears in no apparent distress. comfortable, Behavior is calm, cooperative, kb3 Pt refusing blood work at this time. Reports he would like to follow up with cardiology on Sunday. 22:58 General: Dr White at bedside to speak with patient. kb3 23:30 Pain: Complains of pain in anterior aspect of left upper chest Pain does not radiate. kb3 Pain currently is 6 out of 10 on a pain scale. Quality of pain is described as sharp, Pain began 1 hour ago. 23:30 General: see triage note. kb3 12/03 00:15 General: Pt resting comfortably. No needs at this time. kb3 Vital Signs: 12/02 22:07 BP 114 / 76; Pulse 60; Resp 20; Temp 98; Pulse Ox 98% ; Weight 129.27 kg; Height 5 ft. kb3 5 in. ; Pain 03/03; 12/03 01:01 BP 118 / 74; Pulse 54; Resp 20; Pulse Ox 100% ; kb3 12/02 22:07 Body Mass Index 47.43 (129.27 kg, 165.1 cm) kb3 12/02 22:07 Pain Scale: Adult kb3 [place] Coma Score: 00:35 Eye Response: spontaneous(4). Motor Response: obeys commands(6). Verbal Response: geovanny oriented(5). Total: 15. ED Course: 12/02 21:50 Patient arrived in ED. ja2 22:06 Mynor White MD is Attending Physician. geovanny 22:09 Triage completed. kb3 22:09 Arm band placed on right wrist. kb3 22:36 XRAY Chest (1 view) In Process Unspecified. EDMS 23:02 Alyssa Ford, RN is Primary Nurse. kb3 23:30 Patient has correct armband on for positive identification. Placed in gown. Bed in low kb3 position. Call light in reach. Side rails up X 1. Client placed on continuous cardiac and pulse oximetry monitoring. NIBP monitoring applied. hall monitor on. 23:40 No provider procedures requiring assistance completed. Inserted saline lock: 20 gauge kb3 in right antecubital area, using aseptic technique. Blood collected. 23:40 Patient maintains SpO2 saturation greater than 95% on room air. kb3 12/03 00:33 Kong Albright MD is Referral Physician. [facility] 00:40 Urine Dipstick-Ancillary Sent. kb3 01:01 IV discontinued, intact, bleeding controlled, No redness/swelling at site. kb3 Administered Medications: 00:07 Drug: Aspirin PO Chewable Tablet 324 mg Route: PO; kb3 00:07 Drug: NS 0.9% IV 500 ml Route: IV; Rate: bolus; Site: right antecubital; kb3 00:55 Follow up: Response: No adverse reaction; IV Status: Completed infusion; IV Intake: kb3 200ml 00:40 Drug: Potassium PO Effervescent Tablet 25 mEq Route: PO; kb3 01:03 Follow up: Response: No adverse reaction kb3 Medication: 12/02 23:30 VIS not applicable for this client. kb3 Intake: 12/03 00:55 IV: 200ml; Total: 200ml. kb3 Outcome: 00:34 Discharge ordered by . geovanny 01:01 Discharged to home ambulatory. kb3 01:01 Condition: stable 01:01 Discharge instructions given to patient, Instructed on discharge instructions, follow up and referral plans. medication usage, low salt diet Demonstrated understanding of instructions, follow-up care, medications, Prescriptions given X 2. 01:03 Patient left the ED. kb3 Signatures: Dispatcher [employer] EDWI Mynor White MD MD cha Alexander, Jessica ja2 Bradberry, Kelly, RN RN kb3 Corrections: (The following items were deleted from the chart) 12/02 22:12 22:09 Home Meds: hydrocodone-acetaminophen 10-325 mg/15 mL(15 mL) Oral soln 15 mL every kb3 6 hours; kb3
--- NOTE | 2022-12-15 16:19 | EDPHYS ---
Physician Documentation [facility] Name: Ruben Alamo Age: 46 yrs Sex: Male : 1975 Arrival Date: 12/02/2022 Time: 21:50 Bed 12 Private MD: [facility] Physician Mynor White HPI: 12/02 23:17 This 46 yrs old Black Male presents to ER via Ambulatory with complaints of Chest Pain. [facility] [place] 23:17 The patient or guardian reports chest pain that is located primarily in the anterior geovanny chest wall, left. Onset: 1 month(s) ago. The pain does not radiate. Associated signs and symptoms: The patient has no apparent associated signs or symptoms. The chest pain is described as sharp. Duration: The patient or guardian reports multiple episodes, with no pattern. Modifying factors: The symptoms are alleviated by nothing. the symptoms are aggravated by nothing. Severity of pain: At its worst the pain was mild in the emergency department the pain is unchanged. The patient has not experienced similar symptoms in the past. Historical: - Allergies: 22:09 Iodine; kb3 22:09 PENICILLINS; kb3 22:09 SHELLFISH; kb3 - Home Meds: 22:09 ibuprofen 600 mg Oral tab 1 tab 3 times per day [Active]; lisinopril Oral once daily kb3 [Active]; - PMHx: 22:09 Chronic pain; kb3 - PSHx: 22:09 facial reconstruction; Spinal surgery; kb3 - Immunization history:: Adult Immunizations up to date, Client reports receiving the 2nd dose of the Covid vaccine. - Social history:: Smoking status: Patient denies any tobacco usage or history of. ROS: 23:19 Constitutional: Negative for fever, chills, and weight loss, Eyes: Negative for injury, geovanny pain, redness, and discharge, ENT: Negative for injury, pain, and discharge, Neck: Negative for injury, pain, and swelling, Respiratory: Negative for shortness of breath, cough, wheezing, and pleuritic chest pain, Abdomen/GI: Negative for abdominal pain, nausea, vomiting, diarrhea, and constipation, Back: Negative for injury and pain, : Negative for injury, bleeding, discharge, and swelling, MS/Extremity: Negative for injury and deformity, Skin: Negative for injury, rash, and discoloration, Neuro: Negative for headache, weakness, numbness, tingling, and seizure, Psych: Negative for depression, anxiety, suicide ideation, homicidal ideation, and hallucinations, Allergy/Immunology: Negative for hives, rash, and allergies, Endocrine: Negative for neck swelling, polydipsia, polyuria, polyphagia, and marked weight changes, Hematologic/Lymphatic: Negative for swollen nodes, abnormal bleeding, and unusual bruising. 23:19 Cardiovascular: Positive for chest pain. Exam: 23:19 Constitutional: This is a well developed, well nourished patient who is awake, alert, geovanny and in no acute distress. Head/Face: Normocephalic, atraumatic. Eyes: Pupils equal round and reactive to light, extra-ocular motions intact. Lids and lashes normal. Conjunctiva and sclera are non-icteric and not injected. Cornea within normal limits. Periorbital areas with no swelling, redness, or edema. ENT: Nares patent. No nasal discharge, no septal abnormalities noted. Tympanic membranes are normal and external auditory canals are clear. Oropharynx with no redness, swelling, or masses, exudates, or evidence of obstruction, uvula midline. Mucous membranes moist. Neck: Trachea midline, no thyromegaly or masses palpated, and no cervical lymphadenopathy. Supple, full range of motion without nuchal rigidity, or vertebral point tenderness. No Meningismus. Chest/axilla: Normal chest wall appearance and motion. Nontender with no deformity. No lesions are appreciated. Cardiovascular: Regular rate and rhythm with a normal S1 and S2. No gallops, murmurs, or rubs. Normal PMI, no JVD. No pulse deficits. Respiratory: Lungs have equal breath sounds bilaterally, clear to auscultation and percussion. No rales, rhonchi or wheezes noted. No increased work of breathing, no retractions or nasal flaring. Abdomen/GI: Soft, non-tender, with normal bowel sounds. No distension or tympany. No guarding or rebound. No evidence of tenderness throughout. Back: No spinal tenderness. No costovertebral tenderness. Full range of motion. Male : Normal genitalia with no discharge or lesions. Skin: Warm, dry with normal turgor. Normal color with no rashes, no lesions, and no evidence of cellulitis. MS/ Extremity: Pulses equal, no cyanosis. Neurovascular intact. Full, normal range of motion. Neuro: Awake and alert, GCS 15, oriented to person, place, time, and situation. Cranial nerves II-XII grossly intact. Motor strength 5/5 in all extremities. Sensory grossly intact. Cerebellar exam normal. Normal gait. Psych: Awake, alert, with orientation to person, place and time. Behavior, mood, and affect are within normal limits. 23:19 ECG was reviewed by the Attending Physician. 23:31 Musculoskeletal/extremity: DVT Exam: No signs of deep vein thrombosis. no pain, no geovanny swelling, no tenderness, negative Homans' sign noted on exam, no appreciated bluish discoloration, no erythema, no increased warmth. Vital Signs: 22:07 BP 114 / 76; Pulse 60; Resp 20; Temp 98; Pulse Ox 98% ; Weight 129.27 kg; Height 5 ft. kb3 5 in. ; Pain 6/10; 12/03 01:01 BP 118 / 74; Pulse 54; Resp 20; Pulse Ox 100% ; kb3 12/02 22:07 Body Mass Index 47.43 (129.27 kg, 165.1 cm) kb3 12/02 22:07 Pain Scale: Adult kb3 [place] Coma Score: 00:35 Eye Response: spontaneous(4). Motor Response: obeys commands(6). Verbal Response: geovanny oriented(5). Total: 15. MDM: 12/02 22:06 Patient medically screened. geovanny 23:24 Differential diagnosis: abnormal EKG, acute myocardial infarction, acute pericarditis, geovanny anxiety, coronary artery disease chest wall pain, Cholelithiasis costochondritis, herpes zoster, hiatal hernia, myocarditis, pancreatitis, peptic ulcer disease, pleurisy, pulmonary embolus, stable angina, unstable angina. HEART Score: History: Moderately Suspicious (1), ECG: Normal (0), Age: < or = 45 years (0), Risk Factors: > or = 3 Risk factors for atherosclerotic disease (2), [Hypertension] [+ Family HX] Troponin: < or = 1 x Normal Limit (0), Total Score = 3. The patient was given aspirin in the Emergency Department. [place] Risk Score: 1 - Three or more CAD risk factors, TOTAL SCORE = 1. Data reviewed: vital signs, nurses notes, lab test result(s), EKG, radiologic studies, plain films. Consideration of Admission/Observation Escalation of care including admission/observation considered. I considered the following discharge prescriptions or medication management in the emergency department Medications were administered in the Emergency Department. See MAR. Independent interpretation of the following test(s) in the Emergency Department EKG: See my EKG interpretation above. Test considered but Not performed: Ultrasound no echo. Care significantly affected by the following chronic conditions: Obesity, chronic pain. 12/02 22:09 Order name: Basic Metabolic Panel; Complete Time: 00:32 [facility] 12/02 22:09 Order name: CBC with Diff; Complete Time: 00:32 [facility] [place] 12/02 22:09 Order name: LFT's; Complete Time: 00:32 [facility] [place] 12/02 22:09 Order name: Magnesium; Complete Time: 00:32 [facility] [place] 12/02 22:09 Order name: NT PRO-BNP; Complete Time: 00:32 [facility] [place] 12/02 22:09 Order name: PT-INR; Complete Time: 00:32 [facility] [place] 12/02 22:09 Order name: Troponin HS; Complete Time: 00:32 [facility] [place] 12/02 22:09 Order name: Lipase; Complete Time: 00:32 [facility] [place] 12/02 22:09 Order name: UDS; Complete Time: 00:32 [facility] [place] 12/02 22:09 Order name: D-Dimer; Complete Time: 00:32 [facility] [place] 12/02 22:21 Order name: SARS-COV-2 RT PCR; Complete Time: 00:32 03 00:22 Order name: Urine Dipstick-Ancillary; Complete Time: 00:32 EDMI 12/03 00:24 Order name: Urine Dipstick-Ancillary EDMI 12/02 22:09 Order name: XRAY Chest (1 view); Complete Time: 23:51 [facility] [place] 12/02 22:09 Order name: EKG; Complete Time: 22:09 [facility] [place] 12/02 22:09 Order name: Cardiac monitoring; Complete Time: 22:41 [facility] [place] 12/02 22:09 Order name: EKG - Nurse/Tech; Complete Time: 22:41 [facility] [place] 12/02 22:09 Order name: IV Saline Lock; Complete Time: 00:07 geovanny 12/02 22:09 Order name: Labs collected and sent; Complete Time: 00:07 [facility] [place] 12/02 22:09 Order name: O2 Per Protocol; Complete Time: 00:07 [facility] [place] 12/02 22:09 Order name: O2 Sat Monitoring; Complete Time: 00:07 [facility] [place] 12/02 22:09 Order name: Urine Dipstick-Ancillary (obtain specimen); Complete Time: :03 [facility] [place] EC:19 Rate is 63 beats/min. Rhythm is regular. QRS Brutus is Normal. TX interval is normal. QRS geovanny interval is normal. QT interval is normal. No Q waves. T waves are Normal. No ST changes noted. Clinical impression: Normal ECG and No evidence of ischemia. Interpreted by me. Reviewed by me. Administered Medications: 12/03 00:07 Drug: Aspirin PO Chewable Tablet 324 mg Route: PO; kb3 00:07 Drug: NS 0.9% IV 500 ml Route: IV; Rate: bolus; Site: right antecubital; kb3 00:55 Follow up: Response: No adverse reaction; IV Status: Completed infusion; IV Intake: kb3 200ml 00:40 Drug: Potassium PO Effervescent Tablet 25 mEq Route: PO; kb3 01:03 Follow up: Response: No adverse reaction kb3 Disposition Summary: 12/03/22 00:34 Discharge Ordered Location: Home geovanny Problem: new geovanny Symptoms: have improved geovanny Condition: Stable geovanny Diagnosis - Chest pain, unspecified geovanny - Obesity, unspecified geovanny - Hypokalemia geovanny Followup: geovanny - With: Private Physician - When: 2 - 3 days - Reason: Recheck today's complaints, Continuance of care, Re-evaluation by your physician Followup: geovanny - With: - When: 2 - 3 days - Reason: Recheck today's complaints, Re-evaluation by your physician Discharge Instructions: - Discharge Summary Sheet geovanny - Nonspecific Chest Pain, Adult geovanny - Potassium Content of Foods geovanny - Obesity, Adult geovanny - Nonspecific Chest Pain, Adult, [id number] geovanny - Aspirin and Your Heart geovanny - Hypokalemia geovanny Forms: - Medication Reconciliation Form geovanny - Thank You Letter geovanny - Antibiotic Education geovanny - Prescription Opioid Use geovanny Prescriptions: - Pepcid 20 mg Oral Tablet - take 1 tablet by ORAL route every 12 hours for 21 days; 42 tablet; Refills: 0, geovanny Product Selection Permitted - Toprol XL 25 mg Oral Tablet - take 1 tablet by ORAL route once daily; 20 tablet; Refills: 0, Product geovanny Selection Permitted Signatures: Dispatcher [employer] EDMynor Kern MD MD cha Waters, Shelly, COMIC WRITER-C COMIC WRITER-Csnw Alyssa Ford, RN RN kb3 Corrections: (The following items were deleted from the chart) 12/02 22:12 22:09 Home Meds: hydrocodone-acetaminophen 10-325 mg/15 mL(15 mL) Oral soln 15 mL every kb3 6 hours; kb3 22:23 22:09 SARS-COV-2 Antigen Rapid+I.LAB.BRZ ordered. EDMS EDMS
== END 2022-12-03 01:03 | disposition home or self-care (01) ==
LOC: ER 21:47
DX: R07.89 Other chest pain (principal); E87.6 Hypokalemia; E66.9 Obesity, unspecified; Z20.822 Contact with and (suspected) exposure to COVID-19
CPT/HCPCS: 36415; 71045; 80048; 80076; 80307; 81003; 83690; 83735; 83880; 84484; 85025; 85379; 85610; 93005; 96360; 99285; J7040; U0003

== ENCOUNTER 2023-01-21 18:09 | Emergency (ER) | payer SELFPAY ==
--- OUTSIDE RECORDS SUMMARY | 2023-01-21 18:14 | XMS REPORT | Continuity of Care Document ---
:1975 Author Organization [facility] t Address [address] [place] [address] Care Team Providers Name Role Phone PCP, PATIENT DOES NOT HAVE A Primary Care Physician Unavailmiguel Reynolds MD, Arjun Cullen Attending Clinician [phone] ALBIN ROSAS Attending Clinician Unavailable Albin [...] 00:00: Memoria 00 l (LUF/LI V/SA) Lumbago Lumbago Problem Active 2017-11-07 Me moria with with 03:47:18 l sciatica, sciatica, Herm marcus left side left side Active Problem 11/07/2017 Family Diagnostic No known No known Disease Unive rs active active ity of problems problems [facility] Body mass Body mass Problem Active 2017-11-07 [...] 8-16 ity of DERIVED 00:00: [place] 00 Medical Branch Shellfis Propensi Active Unknown - Uni vers h ty to See comments 816 ity of Derived adverse 00:00: [place] reaction 00 Medical s Branch No Known DA Active U [facility]ie 3-05 [place] s 00:00: Regiona 00 [facility] No Known DA Active U 2019- [facility] Allergie 3-05 [place] s 00:00: Region [facility] NParisaALuis Feldman Active Info Not Enrique elkin Available 10-25 00:00: 00 NO KNOWN Drug Active Univers ALLERGIE Class ity of S [facility] Social History Social Habit Start Date Stop Date Quantity Comments Source [facility] Tobacco use and 2022-06-18 2022-06-18 Smokeless [facility] exposure 00:00:00 00:00:00 tobacco non-user Hospital History of Social 2022-06-18 2022-06-[address] function 00:00:00 00:00:00 Hospital Exposure to 2022-05-20 2022-05-30 Not sure [facility] SARS-CoV-2 (event) 00:00:00 20:57:00 [facility] Sex Assigned At [birth year] [facility]00 [facility] Smoking Status Start Date Stop Date Source Tobacco smoking consumption unknown [facility] Never smoked tobacco [facility] Medications Ordered Filled Start Stop Current [...] every other day for 7 days. diclofenac No 50mg Q.5D Take 1 Meth willi (VOLTAREN) -25 10-03 tablet (50 st 50 MG EC [...] food) for up to 7 days. lidocaine 2022- No 4mL Q.[id number] Apply 4 mL Methodi HCL 06-18-[id number] (lidocaine) 00:00: 04:59 [facility]D [facility] 2 % 00 :00 times a l solution day for 3 days. Apply to cottonball and place it by toothache lidocaine 2021-0 2021- No 4mL Q.00268895 Apply 4 mL Methodi HCL 06-18-[id number] (lidocaine) 00:00: 04:59 3D 3 ([facility] 2 % 00 :00 times a l solution day for 3 days. Apply to cottonball and place it by toothache lidocaine 2021-0 2021- No 4mL Q.[id number] Apply 4 mL Method[facility] HCL 06-18-[id number] (lidocaine) 00:00: 04:59 3D 3 (three) Hospita 2 % 00 :00 times a l solution day for 3 days. Apply to cottonball and place it by toothache lidocaine 2021-2- No 4mL Q.87550624 Apply 4 mL Methodi HCL 06-18-[id number] (lidocaine) 00:00: 04:59 3D 3 (three) [facility]ospita 2 % 00 :00 times a l solution day for 3 days. Apply to cottonball and place it by toothache lidocaine 2021-0 2- No 4mL Q.[id number] Apply 4 mL Method[facility] HCL -18 06-[id number] (lidocaine) 00:00: 04:59 3D 3 (three) Hospita 2 % 00 :00 times a l solution day for 3 days. Apply to cottonball and place it by toothache lidocaine 2021-0 2022- No 4mL Q.[id number] Apply 4 mL [facility] HCL 9-25 09-[id number] (lidocaine) 00:00: 04:59 3D 3 (three) Hospita 2 % 00 :00 times a l solution day for 3 days. Apply to cottonball and place it by toothache lidocaine 2021- No 4mL Q.[id number] Apply 4 mL [facility] HCL 06-[id number] (lidocaine) 00:00: 04:59 3D 3 (three) Hospita 2 % 00 :00 times a l solution day for 3 days. Apply to cottonball and place it by toothache lidocaine 2021- No 4mL Q.[id number] Apply 4 mL [facility] HCL 06-[id number] (lidocaine) 00:00: 04:59 3D 3 [...] 1 at 2130, tablet CHRISTINA butalbital- Yes [id number] 1{tbl} Take 1 Univers acetaminoph - tablet [...] vomiting for up to 30 days. LISINOPRIL 2-0 Yes Take by [facility] ers ORAL 8-16 mouth. ity of 21:45: [address] Branch HYDROcodone 2021-0 Yes 1{tbl} Take 1 Un butch -acetaminop 8-16 tablet by ity of hen (NORCO) 21:45: mouth [place] 10-325 mg 20 every 6 Medical tablet (six) Branch hours as needed. LISINOPRIL 202-0 Yes Take by [facility] ers ORAL 8-16 mouth. ity of 21:45: [address] Branch HYDROcodone 2022-0 Yes 1{tbl} Take 1 Un butch -acetaminop 8-16 tablet by ity of hen (NORCO) 21:45: mouth [place] 10-325 mg 20 every 6 Medical tablet (six) Branch hours as needed. ketorolac 2021-0 2021- No 30mg 30 mg, Unive rs [...] as needed l hen 03:47: [place] 13 Hydrocodone 2017-0 Yes Toussaint 1 tablet Memoria -Acetaminop 2-14 Irfan as needed l hen 03:47: [place] 13 Carisoprodo 2018-0 Yes [place]aint 1 tablet Memoria l 2-14 Irfan as needed l 03:47: [place] Garibay Meloxicam 2017-0 Yes [place] 1 tablet Memoria 2-14 Irfan l 03:47: [place] Garibay Carisoprodo 2018-0 Yes [place] 1 tablet Memoria [...] 1 tablet Memoria 2-14 Irfan l 03:47: [place] 13 Hydrocodone 2017-0 Yes Toussaint 1 tablet [...] QD C [facility]: Memoria 00 l (LUF/LI V/SA) [place] 0 Yes [place]aint 1 tablet Enrique elkin 1-15 Irfan as needed l 00:00: Soma 2018-0 Yes Toussaint 1 tablet Memor ia 1-15 Irfan as needed l 00:00: Meloxicam 2018-0 Yes [place]aint 1 tablet Memoria 1-15 Irfan l 00:00: Ballinger 2018-0 Yes [place] 1 tablet Enrique elkin 1-15 Irfan as needed l 00:00: Soma 2018-0 Yes [place]aint 1 tablet Memor ia 1-15 Irfan as needed l 00:00: Meloxicam 2018-0 Yes [place] 1 tablet Memoria 1-15 Irfan l 00:00: Meloxicam 2018-0 Yes [place] 1 tablet Memoria 1-15 Irfan l 00:00: Ballinger 2018-0 Yes [place] 1 tablet Enrique elkin 1-15 Irfan as needed l 00:00: Soma 2018-0 Yes [place]aint 1 tablet Memor ia 1-15 Irfan as needed l 00:00: Ballinger 2018-0 Yes [place] 1 tablet Enrique elkin 1-15 Irfan as needed l 00:00: Soma 2018-0 Yes [place]aint 1 tablet Memor ia 1-15 Irfan as needed l 00:00: Meloxicam 2018-0 Yes [place]aint 1 tablet Memoria 1-15 Irfan l 00:00: Ballinger 2018-0 Yes Toussaitn 1 tablet Enrique elkin 1-15 Irfan as needed l 00:00: Soma 2018-0 Yes [place]aint 1 tablet Memor ia 1-15 Irfan as needed l 00:00: Meloxicam 2018-0 Yes [place]aint 1 tablet Memoria 1-15 Irfan l 00:00: Ballinger 2018-0 Yes T[place]aint 1 tablet Enrique elkin [...] Systolic blood 2022-05-31 01:59:00 128 mm[Hg] [facility]astolic blood 2022-05-31 01:59:00 81 mm[Hg] Unive [facility] Heart rate 2022-05-31 01:59:00 78 /min [facility] Body temperature 2022-05-31 01:59:00 36.94 Amisha [facility] Respiratory rate 2022-05-31 01:59:00 18 /min [facility] Body height 2022-05-31 01:59:00 165.1 cm [facility] Body weight 2022-05-31 01:59:00 127.007 kg [facility] BMI 2022-05-31 01:59:00 46.59 kg/m2 [facility] Oxygen saturation in 2022-05-31 01:59:00 95 /min [facility] Arterial blood by [facility] Pulse oximetry [place] Systolic blood 2022-05-10 02:39:00 148 mm[Hg] Univer [facility] Diastolic blood 2022-05-10 02:39:00 84 mm[Hg] [facility] 2022-05-10 02:39:00 70 /min [facility] Body temperature 2022-05-10 02:39:00 37.56 Amisha [facility] Respiratory rate 2022-05-10 02:39:00 18 /min Univ ersity [facility] Body height 2022-05-10 02:39:00 162.6 cm Universi ty of [facility] Body weight 2022-05-10 02:39:00 127.007 kg [facility] [place] [facility] [place] BMI 2022-05-10 02:39:00 48.06 kg/m2 Universi ty [facility] Oxygen saturation in 2022-05-10 02:39:00 95 /min University of Arterial blood by [facility] Pulse oximetry Branch Body weight 2022-04-23 20:11:00 133.131 kg Universi ty of [facility] BMI 2022-04-23 20:11:00 50.38 kg/m2 Universi ty of [facility] Systolic blood 2022-04-23 20:09:00 140 mm[Hg] Univer sity of pressure [facility] Diastolic blood 2022-04-23 20:09:00 81 mm[Hg] Unive rsity of [facility] Heart rate 2022-04-23 20:09:00 66 /min Universi ty [facility] Body temperature 2022-04-23 20:09:00 36.72 [facility] 2022-04-23 20:09:00 17 /min [facility] Body height 2022-04-23 20:09:[address] [facility] Oxygen saturation in 2022-04-23 20:09:00 97 /min University of Arterial blood by [facility] Pulse oximetry Branch Systolic blood 2022-06-18 15:20:24 157 mm[Hg] [facility] Di[facility] blood 2022-06-18 15:20:24 74 mm[Hg] [facility] pressure Heart rate 2022-06-18 15:20:24 53 /min [facility] Body temperature 2022-06-18 15:20:24 36.78 Amisha [facility] Respiratory rate 2022-06-18 15:20:24 16 /min [facility] Oxygen saturation in 2022-06-18 15:20:24 97 /min [facility] [place] [facility] Arterial blood by Pulse oximetry Body height 2022-06-18 12:48:00 162.6 cm [facility] Body weight 2022-06-18 12:48:00 127.007 kg [facility] BMI 2022-06-18 12:48:00 48.06 kg/m2 [facility] Systolic blood 2022-05-21 00:33:00 132 mm[Hg] [facility] pressure Diastolic blood 2022-05-21 00:33:00 64 mm[Hg] [facility] pressure Heart rate 2022-05-21 00:33:00 64 /min [facility] Oxygen saturation in 2022-05-21 00:33:00 98 /min [facility] [place] [facility] Arterial blood by Pulse oximetry Body temperature 2022-05-20 23:53:12 36.17 Amisha [facility] Respiratory rate 2022-05-20 23:53:12 18 /min [facility] Body height 2022-05-20 23:52:00 162.6 cm [facility] Body weight 2022-05-20 23:52:00 127.007 kg [facility] BMI 2022-05-20 23:52:00 48.06 kg/m2 [facility] Weight 2017-10-25 15:00:00 [facility] Height 2017-10-25 15:00:00 [facility] Temperature Oral (F) 2017-10-25 15:00:[address] [facility] Heart Rate 2017-10-25 [facility]) 2017-10-25 15:00:00 Mem orial [place] Systolic (mm Hg) 2017-10-25 15:00:00 Enrique rial [place] Body Temperature 2017-10-21 12:00:00 97.5 F [facility] (LUF/BLANCA/SA) Respiratory Rate 2017-10-21 12:00:00 20 /min [facility] (F/BLANCA/SA) O2% BldC Oximetry 2017-10-21 12:00:00 98 % [facility] (LUF/BLANCA/SA) BP Systolic 2017-10-21 12:00:00 132 mm[Hg] [facility] (LUF/BLANCA/SA) BP Diastolic 2017-10-21 12:00:00 78 mm[Hg] [facility] (LUF/BLANCA/SA) Height 2017-10-21 12:00:00 64 in [facility] [place] moura [facility] (F/BLANCA/SA) Weight Measured 2017-10-21 12:00:00 282.19 lbs MOUSTAPHA Simental [facility] (LUF/BLANCA/SA) BMI (Body Mass 2017-10-21 12:00:00 48.7 [facility] Index) [facility] (F/BLANCA/SA) Weight 2017-10-08 15:45:00 [facility] [place] Height 2017-10-08 15:45:00 [facility] [place] Temperature Oral (F) 2017-10-08 15:45:00 96.8 F [facility] [place] Heart Rate 2017-10-08 15:45:00 [facility] [place] Diastolic (mm Hg) 2017-10-08 15:45:00 Mem orial [place] Systolic (mm Hg) 2017-10-08 15:45:00 Enrique rial [place] Procedures Procedure Date / Time Performing Clinician Source Performed CT MAXILLOFACIAL WO 2022-06-18 14:48:32 Frida Patton [facility] CONTRAST CONSENT/REFUSAL FOR 2022-05-31 01:55:15 Doctor Unassigned, No [facility] [place] [facility] Name Medical Branch CT CERVICAL SPINE WO 2022-05-21 01:24:51 [facility] [place] [facility]AST CT HEAD WO CONTRAST 2022-05-21 01:15:40 [facility] POC GLUCOSE 2022-05-21 00:33:00 [facility] NOTICE OF PRIVACY 2022-05-10 02:37:04 Doctor Unassigned, No [facility] [place] PRACTICES Name Medical Branch CONSENT/REFUSAL FOR 2022-05-10 02:35:02 Doctor Unassigned, No [facility] [place] [facility] Name Medical Branch CONSENT/REFUSAL FOR 2022-04-23 20:00:28 Doctor Unassigned, No [facility] [place] DI[facility] TREATMENT Name Medical Branch Plan of Care Planned Activity Planned Date Details Comments Source Future Scheduled 2023-01-09 Hepatitis C screening [facility] Test 02:12:34 (procedure) [code = 988820943] Future Scheduled 2023-01-09 COVID-19 VACCINE ([facility] - [facility] 02:12:34 Booster for Pfizer series) [code = COVID-19 VACCINE (3 - Booster for Pfizer series)] Future Scheduled 2023-01-09 [facility]ING [facility] 02:12:34 [code = COLONOSCOPY SCREENING] Future Scheduled 2023-01-09 INFLUENZA VACCINE [facility] Test 02:12:34 [code = INFLUENZA VACCINE] Future Scheduled 2022-09-08 [facility] Test 15:04:49 (procedure) [code = 498744289] Future Scheduled 2022-09-08 COVID-19 VACCINE (3 - [facility] Test 15:04:49 Booster for Pfizer series) [code = COVID-19 VACCINE (3 - Booster for Pfizer series)] Future Scheduled 2022-09-08 INFLUENZA VACCINE [facility] Test 15:04:49 [code = INFLUENZA VACCINE] Future Scheduled 2022-09-08 [facility] 15:04:49 (procedure) [code = 472786160] Future Scheduled 2022-09-08 COVID-19 VACCINE (3 - [facility] Test 15:04:49 Booster for Pfizer series) [code = COVID-19 VACCINE (3 - Booster for Pfizer series)] Future Scheduled 2022-09-08 INFLUENZA VACCINE [facility] Test 15:04:49 [code = INFLUENZA VACCINE] Future Scheduled 2022-09-08 [facility] Test 15:04:49 (procedure) [code = 843303433] Future Scheduled 2022-09-08 COVID-19 VACCINE (3 - [facility] Test 15:04:49 Booster for Pfizer series) [code = COVID-19 VACCINE (3 - Booster for Pfizer series)] Future Scheduled 2022-09-08 INFLUENZA VACCINE [facility] Test 15:04:49 [code = INFLUENZA VACCINE] Future Scheduled 2022-09-08 [facility] 15:04:49 (procedure) [code = 789859873] Future Scheduled 2022-09-08 COVID-19 VACCINE (3 - [facility] Test 15:04:49 Booster for Pfizer series) [code = COVID-19 VACCINE (3 - Booster for Pfizer series)] Future Scheduled 2022-09-08 INFLUENZA VACCINE [facility] Test 15:04:49 [code = INFLUENZA VACCINE] Future Scheduled 2022-06-18 HEPATITIS B VACCINES [facility] Test 09:25:33 (1 of 3 - 3-dose series) [code = HEPATITIS B VACCINES (1 of 3 - 3-dose series)] Future Scheduled 2022-06-18 Hepatitis C screening [facility] Test 09:25:33 (procedure) [code = 303040655] Future Scheduled 2022-06-18 COVID-19 VACCINE (3 - [facility] Test 09:25:33 Booster for Pfizer series) [code = COVID-19 VACCINE (3 - Booster for Pfizer series)] Future Scheduled 2022-06-18 INFLUENZA VACCINE Method [email or web address] Test 09:25:33 [code = INFLUENZA VACCINE] Future Scheduled 2022-06-18 HEPATITIS B VACCINES Met [facility] Test 09:25:33 (1 of 3 - 3-dose series) [code = HEPATITIS B VACCINES (1 of 3 - 3-dose series)] Future Scheduled 2022-06-18 Hepatitis C screening [facility] Test 09:25:33 (procedure) [code = 085385405] Future Scheduled 2022-06-18 COVID-19 VACCINE (3 - [facility] Test 09:25:33 Booster for Pfizer series) [code = COVID-19 VACCINE (3 - Booster for Pfizer series)] Future Scheduled 2022-06-18 INFLUENZA VACCINE Method [email or web address] Test 09:25:33 [code = INFLUENZA VACCINE] Future Scheduled 2022-06-18 HEPATITIS B VACCINES Met [facility] Test 09:25:33 (1 of 3 - 3-dose series) [code = HEPATITIS B VACCINES (1 of 3 - 3-dose series)] Future Scheduled 2022-06-18 Hepatitis C screening [facility] Test 09:25:33 (procedure) [code = 021182461] Future Scheduled 2022-06-18 COVID-19 VACCINE (3 - [facility] Test 09:25:33 Booster for Pfizer series) [code = COVID-19 VACCINE (3 - Booster for Pfizer series)] Future Scheduled 2022-06-18 INFLUENZA VACCINE Method [email or web address] Test 09:25:33 [code = INFLUENZA VACCINE] Future Scheduled 2022-06-09 HEPATITIS B VACCINES Met [facility] Test 18:36:38 (1 of 3 - 3-dose series) [code = HEPATITIS B VACCINES (1 of 3 - 3-dose series)] Future Scheduled 2022-06-09 Hepatitis C screening [facility] Test 18:36:38 (procedure) [code = 862550358] Future Scheduled 2022-06-09 COVID-19 VACCINE (3 - [facility] Test 18:36:38 Booster for Pfizer series) [code = COVID-19 VACCINE (3 - Booster for Pfizer series)] Future Scheduled 2022-06-09 INFLUENZA VACCINE Method [email or web address] Test 18:36:38 [code = INFLUENZA VACCINE] Future Scheduled 2022-05-25 HEPATITIS B VACCINES Met [facility] Test 07:52:22 (1 of 3 - 3-dose series) [code = HEPATITIS B VACCINES (1 of 3 - 3-dose series)] Future Scheduled 2022-05-25 Hepatitis C screening [facility] Test 07:52:22 (procedure) [code = 154108718] Future Scheduled 2022-05-25 COVID-19 VACCINE (3 - [facility] Test 07:52:22 Booster for Pfizer series) [code = COVID-19 VACCINE (3 - Booster for Pfizer series)] Future Scheduled 2022-05-25 INFLUENZA VACCINE Method [email or web address] Test 07:52:22 [code = INFLUENZA VACCINE] Future Scheduled 2022-05-25 HEPATITIS B VACCINES Met [facility] Test 07:52:22 (1 of 3 - 3-dose series) [code = HEPATITIS B VACCINES (1 of 3 - 3-dose series)] Future Scheduled 2022-05-25 Hepatitis C screening [facility] Test 07:52:22 (procedure) [code = 832434641] Future Scheduled 2022-05-25 COVID-19 VACCINE (3 - [facility] Test 07:52:22 Booster for Pfizer series) [code = COVID-19 VACCINE (3 - Booster for Pfizer series)] Future Scheduled 2022-05-25 INFLUENZA VACCINE Method [facility] Test 07:52:22 [code = INFLUENZA VACCINE] Encounters Start End Encounter Admission Attending Care Care Encounter Source Date/Time Date/Time Type Type Clinicians Facility Department ID 2023-01-21 Outpatient [id number] 10F0-0 Memoria 18:12:35 2GW7-65N0 C8-85X2-86D EC8-41B6- 8 l -84FA-CDD A-BXL322OQY 4FA-XHO517 Tavo [id number] 063 TPJ560 2022-12-02 Outpatient [id number] 04F8 97C6-9 Memoria 21:50:02 977E-4F82 7E-4F26-200 77E-4F82- 8 l -8693-8E8 3-4K3J14699 693-8E8C26 [place]avo [id number] 6F6 1306F6 2022-11-12 Outpatient [id number] F702 5ED6-A Memoria 01:29:42 ADA0-43F6 A0-10H8-K13 DA0-43F6- A l -V353-03I 6-87T9X42DP 116-87F8D9 Tavo 1H79YTV2P C1D 5BBC1D 2022-10-16 Outpatient [id number] 7A87 7EEE-1 Memoria 06:48:40 5JX5-9260 B4-4798-8A7 AB4-4798- 8 l -4Y6R-82Q F-38E4BS271 T9J-09P7QB [place] [id number] D64 698D64 2022-09-25 Outpatient [id number] 3BD2 723F-9 Memoria 18:40:25 53Y1-9S78 D1-5P82-93J 8B1-3I56- 8 l -89BD-1A5 D-5B3MWSH25 9BD-1A5DCD Tavo BQFL930W4 6A3 E256A3 2022-07-11 Outpatient [id number] [id number] 94C6 F00D-5 Memoria 20:33:16 70V8-59JJ F4-47BE-8F8 3O7-73QL- 8 l -3D1S-65H F-74ZIRH311 Q7D-30TKGL [facility] GJV621DBH FAD 309FAD 2022-07-05 Outpatient [id number] B7D1-4 Memoria 21:55:55 29N9-95W7 E6-71T1-L27 9L4-16O4- A l -L13N-3Q2 A-5D635QZX8 53A-2D636E [facility]avo 67CTQ0B9W F6F BA1F6F 2022-06-20 Outpatient [id number]- DWNTG1VF-F8 FEAA B0FE-B Memoria 20:55:03 X92B-2LEE 9E-4FBC-9E6 39E-4FBC- 9 l -8B18-O18 0-L12RFG755 O54-B64RDR [facility]avo XRJ1196K7 7B9 9867B9 2022-06-18 Outpatient [id number] 4A16 41FC-3 Memoria 07:44:31 4N46-5KXE 17-4EED-9D8 R09-7NZA- 9 l -6Q65-P5W 1-Q9QM035C3 U69-V4VE45 Tavo A081W3H12 A09 2A0A09 2022-06-14 Outpatient [id number] 4F66 73A9-D Memoria 22:44:21 M58C-1U20 0A-7I52-795 90A-4A19- 9 l -9064-22B 4-77X114J2J 064-24W134 Tavo 014Q4Y922 120 S3Y655 2022-06-08 Outpatient [id number] F051 4BD7-F Memoria 21:22:44 B01I-5YV4 4B-8AT8-774 44B-4BC4- 8 l -819B-E8C B-D1A63057H 19B-L3B668 Tavo [id number] C63 53AC63 2022-06-03 Outpatient [id number]- [id number] ABCB 93A3-4 Memoria 01:33:52 4565-43DE 65-43DE-92E 565-43DE- 9 l -92Z7-120 7-609GW65RP 9H1-807BW0 Tavo AF42YM324 217 1BO528 2022-05-30 Outpatient [id number] 114E F493-4 Memoria 20:55:52 2N16-729L 39-438E-9B8 J99-480N- 9 l -4J59-9ZV 0-6TUP0M0RB X30-6QBW5C Tavo H1S4QSP50 F41 4BEF41 2022-05-20 Outpatient [id number]-7K 5C46 A21D-1 Memoria 18:55:15 1FAA-4CF3 AA-5CQ2-05B FAA-4CF3- 8 l -80ED-A77 D-X91H32354 0ED-A77A25 [place] [id number] [id number] 2673-09-27 Outpatient [id number] 5C72 [id number] Memoria 14:21:52 82D8-2WSD F0-4CEA-948 0E3-3TDQ- 9 l -9486-B77 6-T14YKB3O7 486-B77BBD Tavo PMH6Q26C7 4C4 1C14C4 2021-06-20 Outpatient [id number] 596A BE16-8 Memoria 14:21:45 8434-49AE 34-49AE-95B 434-49AE- 9 l -95BD-57D D-65IK88K3M 5BD-57DA06 [facility]avo E84V8M934 032 U9W390 2021-05-30 Outpatient [id number] CE68 9471-D Memoria 15:44:20 DAF5-4596 F5-4596-BFE AF5-4596- B l -BFE1-51A 1-51WUT60CX FE1-51ACA1 [place] UV54RZ9MU 1BA 9CA1BA 2020-01-20 Inpatient [facility] [id number] [facility] 15:25:00 21 [facility] 2019-12-16 Inpatient [facility] [id number] [facility] 17:49:00 32 [facility] 2019-12-12 Inpatient [facility] [id number] [facility] 08:32:00 83 [facility] 2019-11-27 Inpatient [facility] [id number] [facility] 07:33:00 06 [facility] 2022-06-18 2022-06-18 Emergency Rodolfo, 1.2.840.1 [id number] Methodi 07:52:00 10:32:[address] [facility] 3.430.2.7 [facility] .3.513839 l .8 2022-06-18 2022-06-18 Emergency Rodolfo, 1.2.840.1 [id number] Methodi 07:52:00 10:32:[address] [facility] 3.430.2.7 [facility] .3.878563 l .8 2022-05-30 2022-05-30 Emergency [facility] [id number] Univers 21:02:00 21:53:[address] [facility] 2022-05-30 2022-05-30 [facility] 1.2.737.[address] [place] [address] 21:02:00 21:53:00 Albin RUSSO 350.1.13.10 i ty [facility] 4.[address] [facility] [id number] [address] 2022-05-20 2022-05-20 Emergency Brábara 1.2.840.1 [id number] Methodi 19:29:00 21:04:00 Kaycee keith [address]67.1.[address] 3.430.2.7 Hospit a .3.066639 l .8 2022-05-20 2022-05-20 Emergency [place] 1.2.840.1 [id number] Methodi 19:29:00 21:04:00 Kaycee keith [address]46.1.[address] 3.430.2.7 Hospit a .3.014648 l .8 2022-05-20 2022-05-20 Travel 1.2.840.1 1.2.678.442 [id number] Methodi 00:00:00 00:00:[address] 3.430.2.7 0.2.7.3.698 Ho spita .3.916006 084.8 l .8 2022-05-20 2022-05-20 Travel 1.2.840.1 1.2.680.040 [id number] Methodi 00:00:00 00:00:[address] 3.430.2.7 0.2.7.3.698 Ho spita .3.781479 084.8 l .8 2022-05-09 2022-05-09 Emergency X [facility] ERT [id number] [employer] 21:45:00 21:46:[address] [facility] 2022-05-09 2022-05-09 Emergency [facility] 1.2.840.114 [id number] Univers 21:45:00 21:46:00 Cher RUSSO [facility].13.10 [facility] 4[facility]686 [facility] [id number] [place] [address] [address] 2022-04-23 2022-04-23 Emergency X RIDREPLACED BY [facility], [facility] ERT [id number] Univers 15:11:00 15:52:[address] [facility] 2022-04-23 2022-04-23 Emergency [place], [facility] [id number] Univers 15:11:00 15:52:00 Bo [id number] [id number] [facility] [id number] [place] [address] [address] 2021-09-14 2021-09-14 Outpatient FERGUSON_JO [facility] [address] [place] 02:13:00 02:[place] [id number] [facility] 2021-09-08 2021-09-08 Outpatient FERGUSON_JO [facility] [address] [place] 02:19:00 02:19[place] [id number] [facility] 2017-11-01 2017-11-01 Outpatient Family Family [id number] eClinic 10:47:00 10:47:00 [facility] Clinic 2017-10-25 2017-10-25 Outpatient Family Family [id number] eClinic 09:00:00 09:00:00 [facility] Clinic 2017-10-21 2017-10-21 PAIN IN NIKKI, [facility] [id number] 11:51:00 14:48:00 [facility] 2017-10-21 2017-10-21 PAIN IN NIKKI, [facility] [id number] [facility] 11:51:00 14:48:00 [facility], [address], (LUF/[place] [address] 2017-10-08 2017-10-08 [facility] [id number] [facility]00 [facility] Clinic Results Test Description Test Time Test Comments Results Result Comments Source POC glucose 2022-05-21 00:34:00 Test Item Value Reference Range Interpretation Comme nts POC glucose (test code = 12689-2) 217 mg/dL 65-100 H Rubber Mold Maker Name: Zach Avery ID: [id number] Lab Interpretation (test code = Abnormal 23249-9) [facility] [id number] 00:34:00 Test Item Value Reference Range Interpretation Comments POC glucose (test code = 217 mg/dL 65-100 H Ope rator Name: Zach 26535-6) BinosDevice ID: [id number] Lab Interpretation (test Abnormal code = 84270-5) [facility] [id number] 00:34:00 Test Item Value Reference Range Interpretation Comments POC glucose (test code = 217 mg/dL 65-100 H Ope rator Name: Zach 23699-1) BinosDevice ID: [id number] Lab Interpretation (test Abnormal code = 67472-7) [facility] [id number] 00:34:00 Test Item Value Reference Range Interpretation Comments POC glucose (test code = 217 mg/dL 65-100 H Ope rator Name: Zach 31681-6) BinosDevice ID: [id number] Lab Interpretation (test Abnormal code = 85177-5) [facility] [id number] 00:34:00 Test Item Value Reference Range Interpretation Comments POC glucose (test code = 217 mg/dL 65-100 H Ope rator Name: Zach Johnston) BinosDevice ID: [id number] Lab Interpretation (test Abnormal code = 08986-4) [facility] [id number] 00:34:00 Test Item Value Reference Range Interpretation Comments POC glucose (test code = 217 mg/dL 65-100 H Ope rator Name: Zach Lieberman7) BinosDevice ID: [id number] Lab Interpretation (test Abnormal code = 08438-4) [facility]2022-08-28 00:34:00 Test Item Value Reference Range Interpretation Comments POC glucose (test code = 217 mg/dL 65-100 H Ope rator Name: Zach Lieberman7) BinosDevice ID: [id number] Lab Interpretation (test Abnormal code = 01197-4) [facility]2022-08-28 00:34:00 Test Item Value Reference Range Interpretation Comments POC glucose (test code = 217 mg/dL 65-100 H Ope rator Name: Zach Johnston) BinosDevice ID: [id number] Lab Interpretation (test Abnormal code = 87031-3) [facility] [id number] 00:34:00 Test Item Value Reference Range Interpretation Comments POC glucose (test code = 217 mg/dL 65-100 H Ope rator Name: Zach Lieberman7) BinosDevice ID: [id number] Lab Interpretation (test Abnormal code = 68258-9) [facility] [id number] 00:34:00 Test Item Value Reference Range Interpretation Comments POC glucose (test code = 217 mg/dL 65-100 H Ope rator Name: Zach Lieberman7) BinosDevice ID: [id number] Lab Interpretation (test Abnormal code = 22315-4) [facility]2022-08-28 00:34:00 Test Item Value Reference Range Interpretation Comments POC glucose (test code = 217 mg/dL 65-100 H Ope rator Name: Zach [id number] BinosDe ID: [id number] Lab Interpretation (test Abnormal code = 03020-2) [facility] HEAD/BRAIN W/O [id number] 18:19:00 Patient Name: VIMAL BARROSO Unit No: [id number] EXAMS: CPT CODE: [id number] CT HEAD/BRAIN W/O CONT 21074 CLINICAL INFORMATION: Moderate frontal headaches. Coughing. Dictation [...] event identified. at 181 Reported and signed by:Deepak Tee MD CC: Germania Engel NP Dictated Date/Time: 12/16/2019 (1818) Technologist: Ibis Mata - Agency CTDI: 45.04 DLP: 757.79 Trnscrpt: 12/16/2019 (1818) Carlo.AGV [facility] Jessica NAME: VIMAL BARROSO [address] [place] [address] PHYS: Germania Isaacs NP [place], [place] [address] : 1975 AGE: 44 SEX: M LOC: B.ERS PHONE #: [phone] EXAM DATE: 12/16/2019 STATUS: PREER FAX #: [phone] RAD #: D/C DT PAGE 1 Signed Report Patient Name: VIMAL BARROSO Unit No: [id number] EXAMS: CPT CODE: [id number] CT HEAD/BRAIN W/O CONT 25067 (Continued) Orig Print D/T: S: 12/16/2019 (1821) HCAJohn Lopez NAME: VIMAL BARROSO [address] [place] [address] PHYS: Germania Isaacs [place] [address] : 1975 AGE: 44 SEX: M LOC: EMILY PHONE #: [phone] EXAM DATE: 12/16/2019 STATUS: PRE ER FAX #: [phone] RAD #: D/C DT PAGE 2 Signed Report- XR CHEST 2 [id number] 09:11:00 FAX: Germania Engel BRAILLE DUPLICATING MACHINE OPERATOR [phone] [place]: St: REG Patient Name: VIMAL BARROSO Unit No: [id number] EXAMS: CPT CODE: [id number] XR CHEST 2 V 00875 - XR CHEST 2 V LOCATION: T18 [...] Joanna Orig Print D/T: S: 12/12/2019 (913) ADEELJohn RodriguezBlachly NAME: VIMAL BARROSO [address] [place] [address] PHYS: Germania Isaacs [place] [address] : 1975 AGE: 44 SEX: M LOC: NohemyERS PHONE #: [phone] EXAM DATE: 12/12/2019 STATUS: REG ER FAX #: [phone] RAD NO: DC Dt: PAGE 1 Signed ReportSPINE LUMBAR [id number] 13:37:[address] [id number] IMAGING REPORTPatient Name: Lili BARROSO of Service: [id number]: 41 Sex: M Order #: [id number] Room: [facility]: 1975 X-Ray Number: [id number] Record Number: [id number] Hospital Number: [id number] Physician: Agatha CROW Physician: RUBY TREVIÑO LUMBAR [...]
[2023-01-21] MEDS ORDERED: ASPIRIN 81 MG CHEWABLE TABLET ONE (18:36)
[2023-01-21 19:29] LABS: Absolute Lymphocytes (CBC) 2.5 K/uL (0.7-4.9); Hematocrit 39.6 % (39.6-49.0); Lymphocytes % 33.4 % (15.3-44.8); MCV 89.5 fL (80-100); MPV 9.8 fL (7.6-11.3); RBC Red Blood Cell Count 4.43 M/uL (4.33-5.43)
[2023-01-21 19:54] LABS: Albumin 3.5 g/dL (3.4-5.0); Bilirubin Direct 0.2 mg/dL (0-0.2); Bilirubin Total 0.7 mg/dL (0.2-1.0); Protein, Total 7.6 g/dL (6.4-8.2); Troponin High Sensitivity 7.8 pg/mL (<58.9)
[2023-01-21 19:56] LABS: Magnesium 2.1 mg/dL (1.6-2.4); Potassium 3.9 mEq/L (3.5-5.1)
--- NOTE | 2023-01-21 19:58 | RAD REPORT ---
EXAM DESCRIPTION: RAD - Chest Single View - 01/21/2023 7:39 pm CLINICAL HISTORY: CHEST PAIN COMPARISON: Chest Single View dated 12/02/2022; Chest Single View dated 11/12/2022; Chest Pa And Lat ( 2 Views) dated 05/01/2022; Chest Single View dated 03/26/2022 FINDINGS: Lines: None. Lungs: No evidence of edema or pneumonia. Pleural: No significant pleural effusions or pneumothorax. Cardiac: Similar size and configuration Mediastinum: Within normal limits. Bones: No acute fractures. Other: None IMPRESSION: No acute cardiopulmonary disease.
[2023-01-21 19:59] LABS: Protime INR 0.94
--- NOTE | 2023-01-21 20:45 | ER ---
Nurse's Notes [facility] Name: Ruben Alamo Age: 47 yrs Sex: Male : 1975 Arrival Date: 01/21/2023 Time: 18:09 Bed 14 Private MD: Diagnosis: Chest pain, unspecified Presentation: 01/21 18:12 Chief complaint: Patient states: left sided chest pain that is intermittent and began aa5 this morning. Pt denies any other symptoms. 18:12 Coronavirus screen: At this time, the client does not indicate any symptoms associated aa5 with coronavirus-19. Ebola Screen: Patient denies travel to an Ebola-affected area in the 21 days before illness onset. Initial Sepsis Screen: Does the patient meet any 2 criteria? No. Patient's initial sepsis screen is negative. Does the patient have a suspected source of infection? No. Patient's initial sepsis screen is negative. Risk Assessment: Do you want to hurt yourself or someone else? Patient reports no desire to harm self or others. Onset of symptoms was January 21, 2023. 18:12 Acuity: LIZBETH 3 aa5 18:12 Method Of Arrival: Ambulatory aa5 Historical: - Allergies: 18:18 Iodine; aa5 18:18 PENICILLINS; aa5 18:18 SHELLFISH; aa5 - PMHx: 18:18 Chronic pain; Hypertensive disorder; aa5 - PSHx: 18:18 facial reconstruction; Spinal surgery; aa5 - Immunization history:: Adult Immunizations unknown. - Social history:: Smoking status: Patient reports the use of cigarette tobacco products, chewing tobacco. Screenin:20 [facility] ED Fall Risk Assessment (Adult) History of falling in the last 3 months, nj1 including since admission No falls in past 3 months (0 pts) Confusion or Disorientation No (0 pts) Intoxicated or Sedated No (0 pts) Impaired Gait No (0 pts) Mobility Assist Device Used No (0 pt) Altered Elimination No (0 pt) Score/Fall Risk Level 0 - 2 = Low Risk Oriented to surroundings, Maintained a safe environment, Hourly rounding (assess needs \\T\\ fall precautionary measures) done. 18:20 Abuse screen: Denies threats or abuse. Denies injuries from another. Nutritional nj1 screening: No deficits noted. Tuberculosis screening: No symptoms or risk factors identified. Assessment: 18:20 General: Appears in no apparent distress. comfortable, Behavior is calm, cooperative, nj1 appropriate for age. 18:20 Pain: Denies pain. Neuro: Level of Consciousness is awake, alert, obeys commands, nj1 Oriented to person, place, time, situation. Cardiovascular: Patient's skin is warm and dry. Respiratory: Airway is patent Respiratory effort is even, unlabored. 19:10 Reassessment: Patient appears in no apparent distress at this time. Patient and/or nj1 family updated on plan of care and expected duration. Pain level reassessed. Patient is alert, oriented x 3, equal unlabored respirations, skin warm/dry/pink. Patient denies pain at this time. 20:30 Reassessment: Patient appears in no apparent distress at this time. Patient and/or nj1 family updated on plan of care and expected duration. Pain level reassessed. Patient is alert, oriented x 3, equal unlabored respirations, skin warm/dry/pink. Pt upset, states "i have been waiting for a long time and no one has answer the light". This RN attempts to provide education with no success. Pt asks "what is your name?", this RN answers, pt asks "who do i need to file a complaint with?" This RN offers to get charge nurse or pump house operator to which he declines. States "Ill come in the morning to do that". Pt requesting IV access out as well as other monitoring off, this RN assisting with that, this RN asks patient if he would like to wait for discharge paperwork since this RN has already talked to Cecilia BATISTA about patient wanting results. Pt agrees to wait for dc paperwork. Charge nurse notified. Patient denies pain at this time. Vital Signs: 18:12 BP 131 / 71; Pulse 62; Resp 18 S; Temp 98.1(TE); Pulse Ox 97% on R/A; Weight 127.01 kg aa5 (R); Height 5 ft. 4 in. ; 19:10 BP 123 / 72; Pulse 58; Resp 19; Pulse Ox 100% on R/A; Pain 0/10; nj1 18:12 Body Mass Index 48.06 (127.01 kg, 162.56 cm) aa5 19:10 Pain Scale: Adult [facility] ED Course: 18:10 Patient arrived in ED. am2 18:12 Arm band placed on. aa5 18:13 Kaylee Ewing FNP-C is PHCP. snw 18:13 Arjun Padilla MD is Attending Physician. snw 18:18 Triage completed. aa5 18:20 Patient has correct armband on for positive identification. Bed in low position. Call nj1 light in reach. 18:26 Sonia Newby, RN is Primary Nurse. nj1 19:10 Inserted saline lock: 20 gauge in right antecubital area, using aseptic technique. nj1 ,using aseptic technique. Ultrasound guided Blood collected. 19:21 Basic Metabolic Panel Sent. nj1 19:21 CBC with Diff Sent. nj1 19:21 LFT's Sent. nj1 19:21 Magnesium Sent. nj1 19:21 NT PRO-BNP Sent. nj1 19:21 PT-INR Sent. nj1 19:21 Troponin HS Sent. nj1 19:41 XRAY Chest (1 view) In Process Unspecified. EDMS 19:57 PHCP role handed off by Kaylee Ewing FNP-C cp 19:57 Mynor Peña PA is PHCP. cp 20:30 IV discontinued, intact, bleeding controlled. nj1 20:42 Kong Albright MD is Referral Physician. cp 20:50 No provider procedures requiring assistance completed. nj1 Administered Medications: 18:32 Drug: Aspirin PO Chewable Tablet 324 mg Route: PO; nj1 Medication: 20:50 VIS not applicable for this client. nj1 Outcome: 20:44 Discharge ordered by . cp 20:50 Discharged to home ambulatory. nj1 20:50 Condition: stable 20:50 Discharge instructions given to patient, Instructed on discharge instructions, follow up and referral plans. Demonstrated understanding of instructions, follow-up care. 21:25 Patient left the ED. nj1 Signatures: Dispatcher [employer] EDMS Kaylee Ewing FNP-C RECYCLING ATTENDANT-Csnw Evangelina Malave RN RN aa5 Mynor Peña PA PA cp Janie Tristan am2 Sonia Newby RN RN nj1
--- NOTE | 2023-01-21 20:45 | EDPHYS ---
Physician Documentation [facility] Name: Ruben Alamo Age: 47 yrs Sex: Male : 1975 Arrival Date: 01/21/2023 Time: 18:09 Bed 14 Private MD: ED Physician Arjun Padilla HPI: 01/21 19:05 This 47 yrs old Black Male presents to ER via Ambulatory with complaints of Chest Pain. snw 19:05 Onset: The symptoms/episode began/occurred this morning, intermittent all day. snw Associated signs and symptoms: The patient has no apparent associated signs or symptoms. The patient has not experienced similar symptoms in the past. It is unknown whether or not the patient has recently seen a physician. Historical: - Allergies: 18:18 Iodine; aa5 18:18 PENICILLINS; aa5 18:18 SHELLFISH; aa5 - PMHx: 18:18 Chronic pain; Hypertensive disorder; aa5 - PSHx: 18:18 facial reconstruction; Spinal surgery; aa5 - Immunization history:: Adult Immunizations unknown. - Social history:: Smoking status: Patient reports the use of cigarette tobacco products, chewing tobacco. ROS: 18:55 Constitutional: Negative for fever, chills, and weight loss, Eyes: Negative for injury, snw pain, redness, and discharge, ENT: Negative for injury, pain, and discharge, Neck: Negative for injury, pain, and swelling, Respiratory: Negative for shortness of breath, cough, wheezing, and pleuritic chest pain, Abdomen/GI: Negative for abdominal pain, nausea, vomiting, diarrhea, and constipation, Back: Negative for injury and pain, : Negative for injury, bleeding, discharge, and swelling, MS/Extremity: Negative for injury and deformity, Skin: Negative for injury, rash, and discoloration, Neuro: Negative for headache, weakness, numbness, tingling, and seizure, Psych: Negative for depression, anxiety, suicide ideation, homicidal ideation, and hallucinations. 18:55 Cardiovascular: Positive for chest pain, of the anterior aspect of left upper chest and left breast. Exam: 18:50 Constitutional: This is a well developed, obese patient who is awake, alert, and in no snw acute distress. Head/Face: Normocephalic, atraumatic. Eyes: Pupils equal round and reactive to light, extra-ocular motions intact. Lids and lashes normal. Conjunctiva and sclera are non-icteric and not injected. Cornea within normal limits. Periorbital areas with no swelling, redness, or edema. ENT: Nares patent. No nasal discharge, no septal abnormalities noted. Tympanic membranes are normal and external auditory canals are clear. Oropharynx with no redness, swelling, or masses, exudates, or evidence of obstruction, uvula midline. Mucous membranes moist. Neck: Trachea midline, no thyromegaly or masses palpated, and no cervical lymphadenopathy. Supple, full range of motion without nuchal rigidity, or vertebral point tenderness. No Meningismus. Chest/axilla: Normal chest wall appearance and motion. Nontender with no deformity. No lesions are appreciated. Cardiovascular: Regular rate and rhythm with a normal S1 and S2. No gallops, murmurs, or rubs. Normal PMI, no JVD. No pulse deficits. Respiratory: Lungs have equal breath sounds bilaterally, clear to auscultation and percussion. No rales, rhonchi or wheezes noted. No increased work of breathing, no retractions or nasal flaring. Abdomen/GI: Soft, non-tender, with normal bowel sounds. No distension or tympany. No guarding or rebound. No evidence of tenderness throughout. Back: No spinal tenderness. No costovertebral tenderness. Full range of motion. Skin: Warm, dry with normal turgor. Normal color with no rashes, no lesions, and no evidence of cellulitis. MS/ Extremity: Pulses equal, no cyanosis. Neurovascular intact. Full, normal range of motion. Neuro: Awake and alert, GCS 15, oriented to person, place, time, and situation. Cranial nerves II-XII grossly intact. Motor strength 5/5 in all extremities. Sensory grossly intact. Cerebellar exam normal. Normal gait. Psych: Awake, alert, with orientation to person, place and time. Behavior, mood, and affect are within normal limits. Vital Signs: 18:12 BP 131 / 71; Pulse 62; Resp 18 S; Temp 98.1(TE); Pulse Ox 97% on R/A; Weight 127.01 kg aa5 (R); Height 5 ft. 4 in. ; 19:10 BP 123 / 72; Pulse 58; Resp 19; Pulse Ox 100% on R/A; Pain 0/10; nj1 18:12 Body Mass Index 48.06 (127.01 kg, 162.56 cm) aa5 19:10 Pain Scale: Adult nj1 MDM: 18:13 Patient medically screened. snw 20:06 Data reviewed: vital signs, nurses notes, lab test result(s), EKG, radiologic studies. snw Transition of care: After a detail discussion of the patient's case, care is transferred to Mynor BATISTA. 20:07 Differential diagnosis: abnormal EKG, acute myocardial infarction, anxiety, chest wall snw pain, costochondritis, gastritis, gastroesophageal reflux disease (GERD), pleurisy. HEART Score: History: Slightly Suspicious (0), ECG: Normal (0), Age: < or = 45 years (0), Risk Factors: 1 or 2 risk factors (1), Troponin: < or = 1 x Normal Limit (0), Total Score = 1. The patient was given aspirin in the Emergency Department. [place] Risk Score: 1 - Recent [<24hrs] Severe Angina, TOTAL SCORE = 1. 20:42 ED course: VSS. Discussed results of today's testing that returned negative troponin cp and EKG negative for STEMI. Recommend continued monitoring and repeat 3 hr troponin. Patient declines any further testing, reviewed HX and heart scale low, will discharge to f/u outpatient with cardiology. 01/21 18:21 Order name: Basic Metabolic Panel; Complete Time: 19:57 snw 01/21 20:35 Interpretation: Normal except: GLUC 155. cp 01/21 18:21 Order name: CBC with Diff; Complete Time: 19:57 snw 01/21 20:35 Interpretation: Normal except: HGB 13.4. cp 01/21 18:21 Order name: LFT's; Complete Time: 19:57 snw 01/21 20:35 Interpretation: Normal except: AST 44; ALT 69; GLOB 4.1; A/G 0.9. cp 01/21 18:21 Order name: Magnesium; Complete Time: 19:57 snw 01/21 18:21 Order name: NT PRO-BNP; Complete Time: 19:57 snw 01/21 18:21 Order name: PT-INR; Complete Time: 20:05 snw 01/21 18:21 Order name: Troponin HS; Complete Time: 19:57 snw 01/21 18:21 Order name: XRAY Chest (1 view); Complete Time: 20:05 snw 01/21 18:21 Order name: EKG; Complete Time: 18:22 snw 01/21 18:21 Order name: Cardiac monitoring; Complete Time: 19:20 snw 01/21 18:21 Order name: EKG - Nurse/Tech; Complete Time: 18:26 snw 01/21 18:21 Order name: IV Saline Lock; Complete Time: 19:20 snw 01/21 18:21 Order name: Labs collected and sent; Complete Time: 19:20 snw 01/21 18:21 Order name: O2 Per Protocol; Complete Time: 18:26 snw 01/21 18:21 Order name: O2 Sat Monitoring; Complete Time: 18:27 snw EC:04 Rate is 59 beats/min. Rhythm is regular. QRS [place] is Normal. DE interval is normal. T snw waves are Inverted in lead V2. Clinical impression: NSR w/ Non-specific ST/T Changes. Administered Medications: 18:32 Drug: Aspirin PO Chewable Tablet 324 mg Route: PO; nj1 Disposition Summary: 01/21/23 20:44 Discharge Ordered Location: Home cp Problem: new cp Symptoms: have improved cp Condition: Stable cp Diagnosis - Chest pain, unspecified cp Followup: cp - With: Kong Albright MD - When: 2 - 3 days - Reason: Recheck today's complaints Discharge Instructions: - Discharge Summary Sheet cp - Nonspecific Chest Pain, Adult cp - Exercise Stress Test cp - Aspirin and Your Heart cp - Form - Return To Work cp Forms: - Medication Reconciliation Form cp - Thank You Letter cp - Antibiotic Education cp - Prescription Opioid Use cp Addendum: 01/24/2023 13:30 I reviewed the patient's care provided by the Advanced Practice Provider and agree with j r11 the diagnosis and treatment plan. Signatures: Dispatcher [employer] Kaylee Lima, JACQUE-Cecilia DEFENSIVE SECONDARY COACH-Csnw Evangelina Malave, RN RN aa5 Mynor Peña PA PA cp Arjun Padilla MD MD jr11 Sonia Newby RN RN nj1
[2023-01-21 21:31] VITALS: TEMP 98.1
[2023-01-21 21:32] VITALS: BP 123/72; O2SAT 100
--- NOTE | 2023-01-22 12:39 | EKG ---
Test Date: 2023-01-21 Test Time: 18:24:46 Irrigation Equipment Remover: ELMA MEASUREMENT RESULTS: Intervals: Rate: 59 WI: 192 QRSD: 106 QT: 396 QTc: 392 [place]: P: 45 WI: 192 QRS: 54 T: 35 INTERPRETIVE STATEMENTS: Sinus bradycardia Otherwise normal ECG Compared to ECG 12/02/2022 22:19:45 Sinus rhythm no longer present Electronically Signed On 01-22-23 12:37:10 CDT by Gomez Goddard
== END 2023-01-21 21:25 | disposition home or self-care (01) ==
LOC: ER 18:09
DX: R07.9 Chest pain, unspecified (principal); I10 Essential (primary) hypertension
CPT/HCPCS: 36415; 71045; 80048; 80076; 83735; 83880; 84484; 85025; 85610; 93005; 99284

== ENCOUNTER 2023-02-13 07:13 | Emergency (ER) | payer SELFPAY ==
--- OUTSIDE RECORDS SUMMARY | 2023-02-13 07:17 | XMS REPORT | Continuity of Care Document ---
:1975 Author Organization [facility] t Address [address] [place] [address] Care Team Providers Name Role Phone PCP, PATIENT DOES NOT HAVE A Primary Care Physician Unavaila saira Reynolds MD, Arjun Cullen Attending Clinician [phone] ANGIE ROSAS Attending Clinician Unavailable Angie [...] Family Diagnostic Other Other Problem Active 2017-11-07 Enrique elkin chronic chronic 03:47:18 l pain pain [place] Active Problem 11/07/2017 Family Diagnostic No known No known Disease Unive rs active active ity of problems problems [facility] Allergies, Adverse Reactions, Alerts Allergy Allergy Status [...] Active Anaphylaxis Gris quinnodi h ty to 06-18 st Derived adverse 00:00: Hospita reaction 00 l s to drug SHELLFIS DRUG Active Unknown-Cmnt Un butch H INGREDI 8-16 ity of DERIVED 00:00: Medical Branch Shellfis Propensi Active Unknown - Uni vers h ty to See comments 816 ity of Derived adverse 00:00: [place] reaction 00 Medical s Branch No Known DA Active U [facility] All[facility]ie 3-05 Mentcle s 00:00: Regiona 00 [facility] No Known DA Active U 2019- [facility] Allergie 3-05 Mentcle s 00:00: Region [facility] NParisaALuis Feldman Active Info Not Enrique elkin Available 10-25 00:00: 00 NO KNOWN Drug Active Univers ALLERGIE Class ity of S [facility] Social History Social Habit Start Date Stop Date Quantity Comments Source Gender identity [facility] Tobacco use and 2022-06-18 2022-06-18 Smokeless [facility] exposure 00:00:00 00:00:00 tobacco non-user Hospital History of Social 2022-06-18 2022-06-[address] function 00:00:00 00:00:00 Hospital Exposure to 2022-05-20 2022-05-30 Not sure [facility] SARS-CoV-2 (event) 00:00:00 20:57:00 [facility] Sex Assigned At [birth year] [facility] 00:00:00 00:00:00 Hospital Smoking Status Start Date Stop Date Source Tobacco smoking consumption unknown [facility] Never smoked tobacco [facility] H ospital Medications Ordered Filled Start Stop [...] every other day for 7 days. diclofenac 2022-0 2022- No 50mg [...] 7 days. lidocaine 202-0 2022- No 4mL Q.[id number] Apply 4 mL Methodi HCL 9-18 06- [id number] topically st (lidocaine) 00:00: 04:59 3D 3 (three) Hospita 2 % 00 :00 times a l solution day for 3 days. Apply to cottonball and place it by toothache lidocaine 2021-0 2022- No 4mL Q.[id number] Apply 4 mL Methodi HCL 9-[id number] (lidocaine) 00:00: 04:59 3D 3 (three) Hospita 2 % 00 :00 times a l solution day for 3 days. Apply to cottonball and place it by toothache lidocaine 2022-0 2022- No 4mL Q.[id number] Apply 4 mL Methodi HCL 9-18 06- [id number] topically st (lidocaine) 00:00: 04:59 3D 3 (three) Hospita 2 % 00 :00 times a l solution day for 3 days. Apply to cottonball and place it by toothache lidocaine 2022-0 2022- No 4mL Q.[id number] Apply 4 mL Methodi HCL 9-18 06- [id number] topically st (lidocaine) 00:00: 04:59 3D 3 (three) Hospita 2 % 00 :00 times a l solution day for 3 days. Apply to cottonball and place it by toothache lidocaine 2021- No 4mL Q.[id number] Apply 4 mL Methodi HCL 06-18- [id number] topically st (lidocaine) 00:00: 04:59 3D 3 (three) Hospita 2 % 00 :00 times a l solution day for 3 days. Apply to cottonball and place it by toothache lidocaine 2021- No 4mL Q.[id number] Apply 4 mL Methodi HCL 06-18- [id number] topically st (lidocaine) 00:00: 04:59 3D 3 (three) Hospita 2 % 00 :00 times a l solution day for 3 days. Apply to cottonball and place it by toothache lidocaine 2021- No 4mL Q.[id number] Apply 4 mL Methodi HCL 06-18- [id number] topically st (lidocaine) 00:00: 04:59 3D 3 (three) Hospita 2 % 00 :00 times a l solution day for 3 days. Apply to cottonball and place it by toothache lidocaine 2021- No 4mL Q.[id number] Apply 4 mL Methodi HCL 06-18- [id number] topically st (lidocaine) 00:00: 04:59 3D 3 (three) Hospita 2 % 00 :00 times a l solution day for 3 days. Apply to cottonball and place it by toothache lidocaine 2021- No 4mL Q.[id number] Apply 4 mL Methodi HCL 06-18- [id number] topically st (lidocaine) 00:00: 04:59 3D 3 (three) Hospita 2 % 00 :00 times a l solution day for 3 days. Apply to cottonball and place it by toothache butalbital- 2021- No 1{tbl} 1 tablet, Univers acetaminoph 05-31 Oral, ity of en-caff 02:30: 02:22 ONCE, 1 [place] (ESGIC) 00 :00 dose, On Medical 50-325-40 05/30/22 Bran ch mg tablet 1 at 2130, tablet CHRISTINA butalbital- 2021-0 Yes [id number] 1{tbl} Take 1 Univers acetaminoph 9-06 tablet by ity of en-caff 00:00: mouth [place] 50-325-40 00 every 6 Medical mg tablet (six) Branch hours as needed for Pain (scale 4-6) or Pain (scale 7-10). ondansetron 2021-0 2022- No 4mg Q8H Take [...] to 30 days. LISINOPRIL Yes Take by [facility] ers ORAL 8-16 mouth. ity of 21:45: [address] HYDROcodone Yes 1{tbl} Take 1 Un butch -acetaminop 8-16 tablet by ity of omer (NORCO) 21:45: mouth [place] 10-325 mg 20 every 6 Medical tablet (six) Branch hours as needed. LISINOPRIL Yes Take by [facility] ORAL 8-16 mouth. ity of 21:45: [address] HYDROcodone Yes 1{tbl} Take 1 Un butch -acetaminop 8-16 tablet by ity of hen (NORCO) 21:45: mouth [place] 10-325 mg 20 every 6 Medical tablet (six) Branch hours as needed. ketorolac 2021- No 30mg 30 mg, Unive rs (TORADOL) 04-23 Intramuscu ity of injection 21:15: 09:14 lar, ONCE, [place] 30 mg 00 :00 1 dose, On Medical [facility] 04/23/22 at 1615, Routine metoclopram 2021- No 10mg 10 mg, Uni vers darren HCl 04-23 Intramuscu ity o f (REGLAN) 20:15: 20:45 [place] :00 1 dose, On Medi shannan 10 mg [facility] 04/23/22 at 1515, CHRISTINA Hydrocodone Yes [place] 1 tablet Memoria -Acetaminop 2-14 Irfan as needed l hen 03:47: [place] 13 Carisoprodo Yes [place] 1 tablet Memoria l 2-14 Irfan as needed l 03:47: [place] 13 Meloxicam 2018-0 Yes [place] 1 tablet Memoria 2-14 Irfan l 03:47: [place] Garibay Hydrocodone 2018-0 Yes [place] 1 tablet Memoria -Acetaminop 2-14 Irfan as needed l hen 03:47: [place] Garibay Carisoprodo 2018-0 Yes [place] 1 tablet Memoria l 2-14 Irfan as needed l 03:47: [place] Garibay Meloxicam 2018-0 Yes [place] 1 tablet Memoria 2-14 Irfan l 03:47: [place] Garibay Hydrocodone 2018-0 Yes [place] 1 tablet Memoria -Acetaminop 2-14 Irfan as needed l hen 03:47: Tavo Garibay Carisoprodo 2018-0 Yes [place] 1 tablet Memoria l 2-14 Irfan as needed l 03:47: [place]avo Garibay Meloxicam 2018-0 Yes [place] 1 tablet Memoria 2-14 Irfan l 03:47: [place] Garibay Hydrocodone 2018-0 Yes [place] 1 tablet Memoria -Acetaminop 2-14 Irfan as needed l hen 03:47: [place] Garibay Hydrocodone 2018-0 Yes [place] 1 tablet Memoria -Acetaminop 2-14 Irfan as needed l hen 03:47: [place] Garibay Carisoprodo 2018-0 Yes [place] 1 tablet Memoria l 2-14 Irfan as needed l 03:47: [place] Garibay Meloxicam 2018-0 Yes [place] 1 tablet Memoria 2-14 Irfan l 03:47: [place] Garibay Carisoprodo 2018-0 Yes [place] 1 tablet Memoria l 2-14 Irfan as needed l 03:47: [place] Garibay Meloxicam 2018-0 Yes [place] 1 tablet Memoria 2-14 Irfan l 03:47: [place] Garibay Hydrocodone 2018-0 Yes [place] 1 tablet Memoria -Acetaminop 2-14 Irfan as needed l hen 03:47: [place]avo Garibay Carisoprodo 2018-0 Yes [place] 1 tablet Memoria l 2-14 Irfan as needed l 03:47: Tavo Garibay Meloxicam 2018-0 Yes [place] 1 tablet Memoria 2-14 Irfan l 03:47: [place] Garibay Hydrocodone 2018-0 Yes [place] 1 tablet Memoria -Acetaminop 2-14 Irfan as needed l hen 03:47: Carisoprodo 2018-0 Yes [place] 1 tablet Memoria l 2-14 Irfan as needed l 03:47: Meloxicam 2018-0 Yes [place] 1 tablet Memoria 2-14 Irfan l 03:47: [place] 13 Acetaminoph 2018-0 Yes [place] 1 tablet [...] 2018-0 Yes 60mg QD [facility] 00:[facility]: Memoria 00 l (LUF/LI V/SA) [place] 2018-0 Yes [place] 1 tablet Memor ia 1-15 Irfan as needed l 00:00: Meloxicam 2018-0 Yes [place] 1 tablet Memoria 1-15 Irfan l 00:00: [place] 2018-0 Yes [place] 1 tablet Enrique elkin 1-15 Irfan as needed l 00:00: [place] 2018-0 Yes [place] 1 tablet Memor ia 1-15 Irfan as needed l 00:00: [place] 00 Meloxicam 2018-0 Yes [place] 1 tablet Memoria 1-15 Irfan l 00:00: [place] 2018-0 Yes [place] 1 tablet Enrique elkin 1-15 Irfan as needed l 00:00: [place] 2018-0 Yes [place] 1 tablet Memor ia 1-15 Irfan as needed l 00:00: Meloxicam 2018-0 Yes [place] 1 tablet Memoria 1-15 Irfan l 00:00: Meloxicam 2018-0 Yes [place] 1 tablet Memoria 1-15 Irfan l 00:00: [place] 2018-0 Yes [place] 1 tablet Enrique elkin 1-15 Irfan as needed l 00:00: [place] 2018-0 Yes [place] 1 tablet Memor ia 1-15 Irfan as needed l 00:00: [place] 2018-0 Yes [place] 1 tablet Enrique elkin 1-15 Irfan as needed l 00:00: [place] 2018-0 Yes [place] 1 tablet Memor ia 1-15 Irfan as needed l 00:00: Meloxicam 2018-0 Yes [place] 1 tablet Memoria 1-15 Irfan l 00:00: [place] 2018-0 Yes [place] 1 tablet Enrique elkin 1-15 Irfan as needed l 00:00: [place] 2018-0 Yes [place] 1 tablet Memor ia 1-15 Irfan as needed l 00:00: Meloxicam 2018-0 Yes [place] 1 tablet Memoria 1-15 Irfan l 00:00: [place] 2018-0 Yes [place] 1 tablet Enrique elkin 1-15 Irfan as needed l 00:00: [place] 2018-0 Yes [place] 1 tablet Memor ia 1-15 Irfan as needed l 00:00: Meloxicam 2018-0 Yes [place] 1 tablet Memoria 1-15 Irfan l 00:00: [place] 2018-0 Yes [place] 1 tablet Enrique elkin 1-15 Irfan as needed l 00:00: acetaminoph 2016-0 Yes 1{tbl} Take [...] Systolic blood 2022-05-31 01:59:00 128 [facility]Hg[facility] 2022-05-31 01:59:00 81 mm[facility]Hg[facility] 2022-05-31 01:59:00 78 /min [facility] Body temperature 2022-05-31 01:59:00 36.94 Amisha [facility] Respiratory rate 2022-05-31 01:59:00 18 /min [facility] Body height 2022-05-31 01:59:00 165.1 cm [facility] Body weight 2022-05-31 01:59:00 127.007 kg [facility] BMI 2022-05-31 01:59:00 46.59 kg/m2 [facility] Oxygen saturation in 2022-05-31 01:59:00 95 /min [facility] Arterial blood by [facility] Pulse oximetry [place] Systolic blood 2022-05-10 02:39:00 148 mm[Hg] Univer sity [facility] Diastolic blood 2022-05-10 02:39:00 84 mm[Hg] [facility] rate 2022-05-10 02:39:00 70 /min [facility] [place] [facility] [place] Body temperature 2022-05-10 02:39:00 37.56 Amisha Univ ersity of [facility] Respiratory rate 2022-05-10 02:39:00 18 /min Univ ersity of [facility] Body height 2022-05-10 02:39:00 162.6 cm [facility] [place] [facility] [place] Body weight 2022-05-10 02:39:00 127.007 kg [facility] [place] [facility] BMI 2022-05-10 02:39:00 48.06 kg/m2 Universi ty of [facility] Oxygen saturation in 2022-05-10 02:39:00 95 /min University of Arterial blood by [place] [facility] Pulse oximetry Branch Body weight 2022-04-23 20:11:00 133.131 kg [facility] [place] [facility] [place] BMI 2022-04-23 20:11:00 50.38 kg/m2 Universi ty of [facility] Systolic blood 2022-04-23 20:09:00 140 mm[Hg] Univer sity of pressure [facility] Diastolic blood 2022-04-23 20:09:00 81 mm[Hg] Unive rsity of pressure [facility] Heart rate 2022-04-23 20:09:00 66 /min Universi ty of [facility] Body temperature 2022-04-23 20:09:00 36.72 Amisha Univ ersity of [facility] Respiratory rate 2022-04-23 20:09:00 17 /min Univ ersity of [facility] Body height 2022-04-23 20:09:00 162.6 cm Universi ty of [facility] Oxygen saturation in 2022-04-23 20:09:00 97 /min University of Arterial blood by [facility] Pulse oximetry Branch Systolic blood 2022-06-18 15:20:24 157 mm[Hg] [facility] pressure Diastolic blood 2022-06-18 15:20:24 74 mm[Hg] [facility]o dist [facility] pressure Heart rate 2022-06-18 15:20:24 53 /min Methodis t [facility] Body temperature 2022-06-18 15:20:24 36.78 Amisha [facility] Res[facility] rate 2022-06-18 15:20:24 16 /min [facility] Oxygen saturation in 2022-06-18 15:20:24 97 /min [facility] Arterial blood by Pulse oximetry Body height 2022-06-18 12:48:00 162.6 cm [facility] Body weight 2022-06-18 12:48:00 127.007 kg [facility] BMI 2022-06-18 12:48:00 48.06 kg/m2 [facility] Systolic blood 2022-05-21 00:33:00 132 mm[Hg] [facility] pressure Diastolic blood 2022-05-21 00:33:00 64 mm[Hg] [facility] [place] [facility] pressure Heart rate 2022-05-21 00:33:00 64 /min [facility] Oxygen saturation in 2022-05-21 00:33:00 98 /min [facility] Arterial blood by Pulse oximetry Body temperature 2022-05-20 23:53:12 36.17 Amisha [facility] Respiratory rate 2022-05-20 23:53:12 18 /min [facility] Body height 2022-05-20 23:52:00 162.6 cm [facility] Body weight 2022-05-20 23:52:00 127.007 kg [facility] BMI 2022-05-20 23:52:00 48.06 kg/m2 [facility] Weight 2017-10-25 15:00:00 [facility] Height 2017-10-25 15:00:00 [facility] Temperature Oral (F) 2017-10-25 15:00:00 97.8 F [facility] Heart Rate 2017-10-25 15:00:00 [facility] Diastolic (mm Hg) 2017-10-25 15:[facility]00 [facility] Sy[facility]olic ([facility] Hg) 2017-10-25 15:00:00 Enrique [facility] Body Temperature 2017-10-21 12:00:00 97.5 F [facility] Respiratory Rate 2017-10-21 12:00:00 20 /min [facility] (F/BLANCA/SA) O2% BldC Oximetry 2017-10-21 12:00:00 98 % [facility] (F/BLANCA/SA) BP Systolic 2017-10-21 12:00:00 132 mm[Hg] [facility] (LUF/BLANCA/SA) BP Diastolic 2017-10-21 12:00:00 78 mm[Hg] [facility] (LUF/BLANCA/SA) Height 2017-10-21 12:00:00 64 in [facility] (LUF/BLANCA/SA) Weight Measured 2017-10-21 12:00:00 282.19 lbs [facility] (LUF/BLANCA/SA) BMI (Body Mass 2017-10-21 12:00:[address] [facility] Index) [facility] (LUF/BLANCA/SA) Weight 2017-10-08 15:45:00 [facility] [place] Height 2017-10-08 15:45:00 [facility] [place] Temperature Oral (F) 2017-10-08 15:45:00 96.8 F [facility] [place] Heart Rate 2017-10-08 15:45:00 [facility] [place] Diastolic (mm Hg) 2017-10-08 15:45:00 Mem orial [place] Systolic (mm Hg) 2017-10-08 15:45:00 Enrique rial [place] Procedures Procedure Date / Time Performing Clinician Source Performed CT MAXILLOFACIAL WO 2022-06-18 14:48:32 Frida Patton [facility] CONTRAST CONSENT/REFUSAL FOR 2022-05-31 01:55:15 Doctor Unassigned, No [facility] [place] [facility] Name Medical Branch CT CERVICAL SPINE WO 2022-05-21 01:24:51 [facility] CONTRAST CT HEAD WO CONTRAST 2022-05-21 01:15:40 [facility] Kaycee [facility] POC GLUCOSE 2022-05-21 00:33:00 [facility] [place] NOTICE OF PRIVACY 2022-05-10 02:37:04 Doctor Unassigned, No [facility] [place] PRACTICES Name Medical Branch CONSENT/REFUSAL FOR 2022-05-10 02:35:02 Doctor Unassigned, No [facility] [place] [facility] Name Medical Branch CONSENT/REFUSAL FOR 2022-04-23 20:00:28 Doctor Unassigned, No [facility] [place] DIAGNOSIS [facility] TREATMENT Name Medical Branch Plan of Care Planned Activity Planned Date Details Comments Source Future Scheduled 2023-01-09 [facility] Test 02:12:34 (procedure) [code = 757539459] Future Scheduled 2023-01-09 COVID-19 VACCINE (3 - [facility] 02:12:34 Booster for Pfizer series) [code = COVID-19 VACCINE (3 - Booster for Pfizer series)] Future Scheduled 2023-01-09 [facility] S[facility]ING [facility] 02:12:34 [code = COLONOSCOPY SCREENING] Future Scheduled 2023-01-09 INFLUENZA VACCINE [facility] Test 02:12:34 [code = INFLUENZA VACCINE] Future Scheduled 2023-01-09 [facility] 02:12:34 (procedure) [code = 683492772] Future Scheduled 2023-01-09 COVID-19 VACCINE (3 - [facility] 02:12:34 Booster for Pfizer series) [code = COVID-19 VACCINE (3 - Booster for Pfizer series)] Future Scheduled 2023-01-09 [facility] 02:12:34 [code = COLONOSCOPY SCREENING] Future Scheduled 2023-01-09 INFLUENZA VACCINE [facility] Test 02:12:34 [code = INFLUENZA VACCINE] Future Scheduled 2022-09-08 [facility] Test 15:04:49 (procedure) [code = 272262222] Future Scheduled 2022-09-08 COVID-19 VACCINE (3 - [facility] Test 15:04:49 Booster for Pfizer series) [code = COVID-19 VACCINE (3 - Booster for Pfizer series)] Future Scheduled 2022-09-08 INFLUENZA VACCINE [facility] Test 15:04:49 [code = INFLUENZA VACCINE] Future Scheduled 2022-09-08 [facility] 15:04:49 (procedure) [code = [id number]] Future Scheduled 2022-09-08 COVID-19 VACCINE (3 - [facility] 15:04:49 Booster for Pfizer series) [code = COVID-19 VACCINE (3 - Booster for Pfizer series)] Future Scheduled 2022-09-08 INFLUENZA VACCINE [facility] Test 15:04:49 [code = INFLUENZA VACCINE] Future Scheduled 2022-09-08 [facility] C screening [facility] Test 15:04:49 (procedure) [code = 065048933] Future Scheduled 2022-09-08 COVID-19 VACCINE (3 - [facility] Test 15:04:49 Booster for Pfizer series) [code = COVID-19 VACCINE (3 - Booster for Pfizer series)] Future Scheduled 2022-09-08 INFLUENZA VACCINE [facility] Test 15:04:49 [code = INFLUENZA VACCINE] Future Scheduled 2022-09-08 Hepatitis C screening [facility] Test 15:04:49 (procedure) [code = 469174098] Future Scheduled 2022-09-08 COVID-19 VACCINE (3 - [facility] Test 15:04:49 Booster for Pfizer series) [code = COVID-19 VACCINE (3 - Booster for Pfizer series)] Future Scheduled 2022-09-08 INFLUENZA VACCINE [facility] Test 15:04:49 [code = INFLUENZA VACCINE] Future Scheduled 2022-06-18 HEPATITIS B VACCINES Met [facility] Test 09:25:33 (1 of 3 - 3-dose series) [code = HEPATITIS B VACCINES (1 of 3 - 3-dose series)] Future Scheduled 2022-06-18 Hepatitis C screening [facility] Test 09:25:33 (procedure) [code = [id number]] Future Scheduled 2022-06-18 COVID-19 VACCINE (3 - [facility] Test 09:25:33 Booster for Pfizer series) [code = COVID-19 VACCINE (3 - Booster for Pfizer series)] Future Scheduled 2022-06-18 [facility]FL[facility]ENZA VACCINE [facility] Test 09:25:33 [code = INFLUENZA VACCINE] Future Scheduled 2022-06-18 HEPATITIS B VACCINES Met [facility] Test 09:25:33 (1 of 3 - 3-dose series) [code = HEPATITIS B VACCINES (1 of 3 - 3-dose series)] Future Scheduled 2022-06-18 Hepatitis C screening [facility] Test 09:25:33 (procedure) [code = 236532835] Future Scheduled 2022-06-18 COVID-19 VACCINE (3 - [facility] Test 09:25:33 Booster for Pfizer series) [code = COVID-19 VACCINE (3 - Booster for Pfizer series)] Future Scheduled 2022-06-18 INFLUENZA VACCINE [facility] Test 09:25:33 [code = INFLUENZA VACCINE] Future Scheduled 2022-06-18 HEPATITIS B VACCINES Met [facility] Test 09:25:33 (1 of 3 - 3-dose series) [code = HEPATITIS B VACCINES (1 of 3 - 3-dose series)] Future Scheduled 2022-06-18 Hepatitis C screening [facility] Test 09:25:33 (procedure) [code = 473306426] Future Scheduled 2022-06-18 COVID-19 VACCINE (3 - [facility] Test 09:25:33 Booster for Pfizer series) [code = COVID-19 VACCINE (3 - Booster for Pfizer series)] Future Scheduled 2022-06-18 INFLUENZA VACCINE [facility] Test 09:25:33 [code = INFLUENZA VACCINE] Future Scheduled 2022-06-09 HEPATITIS B VACCINES Met [facility] Test 18:36:38 (1 of 3 - 3-dose series) [code = HEPATITIS B VACCINES (1 of 3 - 3-dose series)] Future Scheduled 2022-06-09 Hepatitis C screening [facility] Test 18:36:38 (procedure) [code = 902346241] Future Scheduled 2022-06-09 COVID-19 VACCINE (3 - [facility] Test 18:36:38 Booster for Pfizer series) [code = COVID-19 VACCINE (3 - Booster for Pfizer series)] Future Scheduled 2022-06-09 [facility]ZA VACCINE [facility] Test 18:36:38 [code = INFLUENZA VACCINE] Future Scheduled 2022-05-25 HEPATITIS B VACCINES Met [facility] Test 07:52:22 (1 of 3 - 3-dose series) [code = HEPATITIS B VACCINES (1 of 3 - 3-dose series)] Future Scheduled 2022-05-25 Hepatitis C screening [facility] Test 07:52:22 (procedure) [code = 364931542] Future Scheduled 2022-05-25 COVID-19 VACCINE (3 - [facility] Test 07:52:22 Booster for Pfizer series) [code = COVID-19 VACCINE (3 - Booster for Pfizer series)] Future Scheduled 2022-05-25 INFLUENZA VACCINE Method [facility] Test 07:52:22 [code = INFLUENZA VACCINE] Future Scheduled 2022-05-25 HEPATITIS B VACCINES Met [facility] Test 07:52:22 (1 of 3 - 3-dose series) [code = HEPATITIS B VACCINES (1 of 3 - 3-dose series)] Future Scheduled 2022-05-25 Hepatitis C screening [facility] Test 07:52:22 (procedure) [code = 935023830] Future Scheduled 2022-05-25 COVID-19 VACCINE (3 - [facility] Test 07:52:22 Booster for Pfizer series) [code = COVID-19 VACCINE (3 - Booster for Pfizer series)] Future Scheduled 2022-05-25 INFLUENZA VACCINE Method [facility] Test 07:52:22 [code = INFLUENZA VACCINE] Encounters Start End Encounter Admission Attending Care Care Encounter Source Date/Time Date/Time Type Type Clinicians Facility Department ID 2023-02-13 Outpatient [id number] Memoria 07:15:33 [id number] Tavo [id number] 2023-01-21 Outpatient [id number] Memoria 18:12:35 [id number] Tavo [id number] 2022-12-02 Outpatient [id number] Memoria 21:50:02 [id number] Tavo [id number] 2022-11-12 Outpatient [id number] Memoria 01:29:42 [id number] Tavo [id number] 2022-10-16 Outpatient [id number] Memoria 06:48:40 [id number] Tavo [id number] 2022-09-25 Outpatient [id number] 723F-9 Memoria 18:40:25 05C4-9F02 D1-1U42-93T 7Y5-1Q10- 8 l -89BD-1A5 D-0S1CQPA54 9BD-1A5DCD Tavo BCZC169A9 6A3 E256A3 2022-07-11 Outpatient 61P5A57L- 20P9R83V-21 94C6 F00D-5 Memoria 20:33:16 00L3-00IU F4-47BE-8F8 6Q5-57IF- 8 l -1Q3M-31C F-24PNTW738 D1U-19BXQJ Tavo HEQ574OZN FAD 309FAD 2022-07-05 Outpatient 7097L1Z4- 4223Q4L1-70 3842 B7D1-4 Memoria 21:55:55 09R8-79R5 E6-03S8-Y85 8E5-44T0- A l -P33B-3P5 A-7U002CGY6 53A-0M922J Tavo 02ILG6P5C F6F BA1F6F 2022-06-20 Outpatient SULSE8WR- BLUAA3ZR-K0 FEAA B0FE-B Memoria 20:55:03 P23Z-7XVG 9E-4FBC-9E6 39E-4FBC- 9 l -1Y98-C49 0-H51SRK370 R86-G79ZVI Tavo MSR9771U3 7B9 9867B9 2022-06-18 Outpatient 4U8730TS- 0U3241XY-3U 4A16 41FC-3 Memoria 07:44:31 7X64-4NTU 17-4EED-9D8 M25-0NWH- 9 l -5P17-M7M 1-X3RO049W2 G96-P4PQ65 Tavo R405Y1P17 A09 2A0A09 2022-06-14 Outpatient 6H2367X8- 4V2550I9-W7 4F66 73A9-D Memoria 22:44:21 L37A-9M24 0A-5R39-088 90A-4A19- 9 l -9064-22B 4-43C275G3J 064-29W036 [place] 275P4O354 120 L5W311 2022-06-08 Outpatient [id number]- V8909ZQ1-X5 F051 4BD7-F Memoria 21:22:44 Y91M-8ZT1 4B-2IV5-465 44B-4BC4- 8 l -819B-E8C B-E9H49113G 19B-M0C430 [place] 10987DP29 C63 53AC63 2022-06-03 Outpatient FCSI07Z0- AYDY22X4-52 ABCB 93A3-4 Memoria 01:33:52 4565-43DE 65-43DE-92E 565-43DE- 9 l -76Y2-670 7-306MX11TR 2L5-061TL5 Tavo WZ82IC919 217 8DL655 2022-05-30 Outpatient 460DB069- 519OO965-3H 114E F493-4 Memoria 20:55:52 5W03-204Y 39-438E-9B8 Y46-572E- 9 l -0Q55-8OC 0-7GUA5M1JK D97-1LUE5X [place] A8I4ESL05 F41 4BEF41 2022-05-20 Outpatient 3C64Z70V- 5I63Z13V-1F 5C46 A21D-1 Memoria 18:55:15 1FAA-4CF3 AA-8HI1-87Z FAA-4CF3- 8 l -80ED-A77 D-S94K24507 0ED-A77A25 [place] [id number] 664 699655 7618-09-27 Outpatient [id number]- [id number] 5C72 5329-4 Memoria 14:21:52 66I8-9BTY F0-4CEA-948 8C4-1KCB- 9 l -9486-B77 6-K50DAN5F7 486-B77BBD Tavo YOI4H57C9 4C4 1C14C4 2021-06-20 Outpatient 167SLH88- 744DYC39-11 596A BE16-8 Memoria 14:21:45 8434-49AE 34-49AE-95B 434-49AE- 9 l -95BD-57D D-89DR93M2R 5BD-57DA06 [place] X40I2W271 032 T8L239 2021-05-30 Outpatient [id number]- [id number]-JB CE68 9471-D Memoria 15:44:20 DAF5-4596 F5-4596-BFE AF5-4596- B l -BFE1-51A 1-16EDS51FZ FE1-51ACA1 Tavo IT15GD3QV 1BA 9CA1BA 2020-01-20 Inpatient [facility] [id number] [facility] 15:25:00 21 [facility] 2019-12-16 Inpatient [facility] [id number] [facility] 17:49:00 32 [facility] 2019-12-12 Inpatient [facility] [id number] [facility] 08:32:00 83 [facility] 2019-11-27 Inpatient [facility] [id number] [facility] 07:33:00 06 [facility] 2022-06-18 2022-06-18 Emergency Rodolfo, 1.2.840.1 [id number] [id number] Methodi 07:52:00 10:32:[address] [facility] 3.430.2.7 [facility] .3.666715 l .8 2022-06-18 2022-06-18 Emergency Rodolfo, 1.2.840.1 [id number] 2100 [id number] Methodi 07:52:00 10:32:[address] Subhash 3.430.2.7 [facility] .3.304968 l .8 2022-05-30 2022-05-30 Emergency [facility] [id number] Univers 21:02:00 21:53:00 ANGIE ibrahim of [facility] 2022-05-30 2022-05-30 [facility] 1.2.643.947 1208 7 [facility] 21:02:00 21:53:00 Alisonradha RAFAELA 350.1.13.10 i ty of [place] 4.2.7.2.686 [facility] [id number] [address] 2022-05-20 2022-05-20 Emergency Darci-Kings 1.2.840.1 [id number] Methodi 19:29:00 21:04:[address] 3.430.2.7 Hospit a .3.385869 l .8 2022-05-20 2022-05-20 Emergency Bárbara 1.2.840.1 [id number] Methodi 19:29:00 21:04:[address] 3.430.2.7 Hospit a .3.894196 l .8 2022-05-20 2022-05-20 Travel 1.2.840.1 1.2.267.482 5423 579534 Methodi 00:00:00 00:00:[address] 3.430.2.7 0.2.7.3.698 Ho spita .3.187375 084.8 l .8 2022-05-20 2022-05-20 Travel 1.2.840.1 1.2.244.796 3995 680328 Methodi 00:00:00 00:00:[address] 3.430.2.7 0.2.7.3.698 Ho spita .3.537290 084.8 l .8 2022-05-09 2022-05-09 Emergency [facility] [id number] 4131 Univers 21:45:00 21:46:00 CHER ibrahim [facility] 2022-05-09 2022-05-09 Emergency Jessy NYSY 1.2.840.114 95 [id number] Univers 21:45:00 21:46:00 Cher RUSSO 350.1.13.10 ity [facility] 4.2.7.2.686 [facility] [id number] [facility] [address] 2022-04-23 2022-04-23 Emergency X RIDDLE, [facility] ERT [id number] Univers 15:11:00 15:52:00 BO fu of [facility] 2022-04-23 2022-04-23 Emergency Jarrell, [facility] 1.2.119.822 5645 2241 Univers 15:11:00 15:52:00 Bo RUSSO 350.1.13.10 Jorge [facility] 4.2.7.2.686 [facility] [id number] [facility] [address] 2021-09-14 2021-09-14 Outpatient FERGUSON_JO [facility] [address] [place] 02:13[place]00 [place] [address] [facility] 2021-09-08 2021-09-08 Outpatient FERGUSON_JO MSHOP [facility] 117 [address] [place] 02:19:00 02:19[place] [address] [facility] 2017-11-01 2017-11-01 Outpatient Family Family [id number] eClinic 10:47:00 10:47:00 [facility] 2017-10-25 2017-10-25 Outpatient Family Family [id number] eClinic 09:00:00 09:00:00 [facility] 2017-10-21 2017-10-21 PAIN IN NIKKI, [facility] [id number] 11:51:00 14:48:00 [facility] 2017-10-21 2017-10-21 PAIN IN NIKKI, [facility] [id number] [facility] 11:51:00 14:48:00 [facility], [address], ([place] [address] 2017-10-08 2017-10-08 Outpatient Family Family [id number] eClinic 09:45:00 09:45:00 [facility] Clinic Results Test Description Test Time Test Comments Results Result Comments Source POC glucose 2022-05-21 00:34:00 Test Item Value Reference Range Interpretation Comme nts POC glucose (test code = 52832-9) 217 mg/dL 65-100 H Nut Roaster Helper Name: Zach BinavelDevice ID: [id number] Lab Interpretation (test code = Abnormal 29340-1) [facility] tafwwal2178-56-12 00:34:00 Test Item Value Reference Range Interpretation Comments POC glucose (test code = 217 mg/dL 65-100 H Ope rator Name: Zach 32850-4) BinosDevice ID: [id number] Lab Interpretation (test Abnormal code = 58556-5) [facility] xgveimg6157-13-18 00:34:00 Test Item Value Reference Range Interpretation Comments POC glucose (test code = 217 mg/dL 65-100 H Ope rator Name: Zach 24426-3) BinosDevice ID: [id number] Lab Interpretation (test Abnormal code = 08886-2) [facility]2022-08-28 00:34:00 Test Item Value Reference Range Interpretation Comments POC glucose (test code = 217 mg/dL 65-100 H Ope rator Name: Zach Duggan53-7) BinosDevice ID: [id number] Lab Interpretation (test Abnormal code = 49122-4) [facility]2022-08-28 00:34:00 Test Item Value Reference Range Interpretation Comments POC glucose (test code = 217 mg/dL 65-100 H Ope rator Name: Zach 75678-1) BinosDevice ID: [id number] Lab Interpretation (test Abnormal code = 65394-3) [facility]2022-08-28 00:34:00 Test Item Value Reference Range Interpretation Comments POC glucose (test code = 217 mg/dL 65-100 H Ope rator Name: Zach Lieberman7) BinosDevice ID: [id number] Lab Interpretation (test Abnormal code = 23933-5) [facility]2022-08-28 00:34:00 Test Item Value Reference Range Interpretation Comments POC glucose (test code = 217 mg/dL 65-100 H Ope rator Name: Zach 22718-4) BinosDevice ID: [id number] Lab Interpretation (test Abnormal code = 89449-8) [facility] itlwskh9729-79-11 00:34:00 Test Item Value Reference Range Interpretation Comments POC glucose (test code = 217 mg/dL 65-100 H Ope rator Name: Zach Johnston) BinosDevice ID: [id number] Lab Interpretation (test Abnormal code = 00889-7) [facility] hfadahr9392-12-29 00:34:00 Test Item Value Reference Range Interpretation Comments POC glucose (test code = 217 mg/dL 65-100 H Ope rator Name: Zach Johnston) BinosDevice ID: [id number] Lab Interpretation (test Abnormal code = 59153-9) [facility]2022-08-28 00:34:00 Test Item Value Reference Range Interpretation Comments POC glucose (test code = 217 mg/dL 65-100 H Ope rator Name: Zach Johnston) BinosDevice ID: [id number] Lab Interpretation (test Abnormal code = 44674-6) [facility]2022-08-28 00:34:00 Test Item Value Reference Range Interpretation Comments POC glucose (test code = 217 mg/dL 65-100 H Ope rator Name: Zach Johnston) BinosDevice ID: [id number] Lab Interpretation (test Abnormal code = 37945-5) [facility] nayauey8924-54-39 00:34:00 Test Item Value Reference Range Interpretation Comments POC glucose (test code = 217 mg/dL 65-100 H Ope rator Name: Zach Johnston) BinosDevice ID: [id number] Lab Interpretation (test Abnormal code = 38646-3) [facility] HEAD/BRAIN W/O [id number] 18:19:00 Patient Name: VIMAL BARROSO Unit No: [id number] EXAMS: CPT CODE: [id number] CT HEAD/BRAIN W/O CONT 97585 CLINICAL INFORMATION: Moderate frontal headaches. Coughing. Dictation [...] 45.04 DLP: 757.79 Trnscrpt: 12/16/2019 (1818) NancyV ADEELJohn [place] NAME: VIMAL BARROSO [address] [place] [address] PHYS: Germania Isaacs NP [place] [address] : 1975 AGE: 44 SEX: M LOC: B.ERS PHONE #: [phone] EXAM DATE: 12/16/2019 STATUS: PRE ER FAX #: [phone] RAD #: D/C DT PAGE 1 Signed Report Patient Name: VIMAL BARROSO Unit No: [id number] EXAMS: CPT CODE: [id number] CT HEAD/BRAIN W/O CONT 87937 (Continued) Orig Print D/T: S: 12/16/2019 (1821) ADEELJohn Jessica NAME: VIMAL BARROSO [address] [place] [address] PHYS: SAADIAGermania Cates NP [place] [address] : 1975 AGE: 44 SEX: M LOC: B.ERS PHONE #: [phone] EXAM DATE: 12/16/2019 STATUS: PRE ER FAX #: [phone] RAD #: D/C DT PAGE 2 Signed Report- XR CHEST 2 Y5740-12-58 09:11:00 FAX: Germania Engel NP [phone] [place]: E St: REG Patient Name: VIMAL BARROSO Unit No: [id number] EXAMS: CPT CODE: [id number] XR CHEST 2 V 84791 - XR CHEST 2 V LOCATION: T18 [...] By: Joanna Orig Print D/T: S: 12/12/2019 (09) [facility] Jessica NAME: VIMAL BARROSO [address] [place] [address] PHYS: Germania Isaacs NP [place] [address] : 1975 AGE: 44 SEX: M LOC: B.ERS PHONE #: [phone] EXAM DATE: 12/12/2019 STATUS: REG ER FAX #: [phone] RAD NO: DC Dt: PAGE 1 Signed ReportSPINE LUMBAR NEDK5416-38-48 13:37:[address] [address]BFTRNLQYBY IMAGING REPORTPatient Name: Lili BARROSO of Service: [id number]: 41 Sex: M Order #: [id number] Room: CCSDOB: 1975 X- Ray Number: [id number] Record Number: [id number] Hospital Number: [id number] Physician: Agatha CROW Physician: RUBY TREVIÑO LUMBAR [...] PMLegally authenticated by EARLINE ANAYA 2017-04-08 13:34:45 Notes Date/Time Note Provider Source 2020-01-20 [facility] 15:31:00-00:00 [facility] ([facility]) EMERGENCY PROVIDER REPORT REPORT#:[id number] REPORT STATUS: Signed DATE:01/20/20 TIME: 153 PATIENT: VIMAL BARROSO UNIT #: [id number] ROOM/BED: AGE: 44 SEX: M PCP PHYS: No Primary or Family Ph ysician SERVICE AUTHOR: Jadiel Young DO * ALL edits or amendments must be made on the Storwize/computer document * HPI-Headache General Initial Greet Date/Time 01/20/20 1530 Presentation Chief Complaint Headache Hx Obtained From Patient Sudden in Onset? No Severity: Onset Moderate Free Text HPI Notes Free Text HPI Notes 44-year-old male no significant past medical his tory Presents to the ER for acute onset of he adaches over the last 4 weeks. Patient states that the headaches co me on at nighttime when he lays down and he wakes up with them most mornings. Patient denies weakness , numbness, change in consciousness. Patient states he was seen here 4 weeks ago and had a normal work-up including CAT scan. The headache s have not changed. They sometimes get a little better with over-th e-counter medications, but the patient has not tried prescription medicine nor hidalgo s he had neurology to follow-up with. Headaches are non-thunderclap, not maximal at onset, and all feel about the same. Patient has no other complaints. Denies smoking, EtOH, drug use Problem is new, acute onset, intermitten t, not worsening, improving with over- the-counter medications mildly Review of Systems ROS Statements All systems rev neg except as marked. Basic Review of Systems Basic ROS RESP: No SOB, CV: No chest pain, : N o dysuria/frequency, HEM: No bleeding/bruising Focused Review of Systems Constitutional Denies: Chills, Fatigue, Fever. Eyes Denies: Blurred bilat, Diplopia, Photophobia. Neurologic Reports: Headache. Denies: A bnormal movement, Change LOC, Confusion, Dizziness, Generalized weakness, Lightheaded, Numbn ess, Seizure, Shaking, Slurred speech, Syncope. Psychiatric Denies: Agitation, Anxiety, Change mental status . Past Medical History - Adult Stated Complaint HEADACHE SINCE YESTERDAY Allergies Coded Allergies: No Known Allergies (11/27/19) Smoking status for patients 13 years old or olde r: Unknown,if ever smoked Physical Exam Vital Signs Vital Signs First Documented: Result Date Time Pulse Ox 98 01/19 1526 B/P 141/83 01/19 1526 B/P Mean 102 01/19 1526 O2 Delivery Room air 01/19 1526 Temp 98.2 01/19 1526 Pulse 71 01/19 1526 Resp 16 01/19 1526 Last Documented: Result Date Time Pulse Ox 98 01/19 1526 B/P 141/83 01/19 1526 B/P Mean 102 01/19 1526 O2 Delivery Room air 01/19 1526 Temp 98.2 01/19 1526 Pulse 71 01/19 1526 Resp 16 01/19 1526 Review of Vital Signs Reviewed Focused PE General/Const General/Const Awake, Alert, Not toxic appearing MS Head Head Atraumatic, Normocephalic Eyes Eyes PERRL, EOMI, No nystagmus Ears/Nose/Throat Ears/Nose/Throat Airway patent, Mucous membrane s moist, Pharynx NL MS Neck Neck Supple, No meningismus, Full range of maite on Resp/Chest Respiratory/Chest Breath sounds NL, Breath soun ds = bilat, No respiratory distress Cardiovascular Cardiovascular Heart rate NL, Regular rhythm, H eart sounds NL Abdomen/GI Abdomen/GI Soft, Non-tender Skin Skin No rash, Warm, Dry Neurologic Neurologic Oriented X3, Speech NL, No motor def icits, No sensory deficits Psychiatric Psychiatric Affect NL, Mood NL, Judgment/insigh t NL Additional PE Genitourinary General Exam deferred Re-Evaluation MDM Free Text MDM Notes Free Text MDM Notes Patient's headaches have not changed Patient already had initial work-up including im aging that was negative Patient currently asymptomatic in the ER Patient needs Rx for medication for headaches as well as neurology referral ambulatory and PO in ED, non toxic, well appeari ng Patient stable for dispo home Patient updated and agreeable plan Patient Discharge Departure Vital Signs/Condition Vital Signs First Documented: Result Date Time Pulse Ox 98 01/19 1526 B/P 141/83 01/19 1526 B/P Mean 102 01/19 1526 O2 Delivery Room air 01/19 1526 Temp 98.2 01/19 1526 Pulse 71 01/19 1526 Resp 16 01/19 1526 Last Documented: Result Date Time Pulse Ox 98 01/19 1526 B/P 141/83 01/19 1526 B/P Mean 102 01/19 1526 O2 Delivery Room air 01/19 1526 Temp 98.2 01/19 1526 Pulse 71 01/19 1526 Resp 16 01/19 1526 All vital signs available at the time of this en try have been reviewed. Clinical Impression Clinical Impression Primary Impression: Headache Secondary Impressions: Accelerated hypertension Disposition Decision Discharge )( Discharged to Home Yes )( Time 1541 )( Date 01/20/20 Discharge/Care Plan Counseled Regarding Diagnosi s, Prescriptions, Need for follow-up, When to return to ED Prescriptions Reglan Referrals No Primary or Family Physician (PCP) Discharge Note I have spoken with the patie nt and/or caregivers. I have explained the patient's condition, diagnoses and vida atment plan based on the information available to me at this time. I have answered the patient's and/ or caregiver's questions and addressed any concerns. The patient and/or careg butch have as good an understanding of the patient 's diagnosis, condition and treatment plan as can be expected at this point. The vital signs have bee n stable. The patient's condition is stable and appr opriate for discharge from the emergency department. The patient will pursue further outpatient evalu ation with the primary care physician or other designated or consulting phys ician as outlined in the discharge instructions. The patient and/or caregivers are agreeable to this plan of care and follow-up instructions have been exp lained in detail. The patient and/or caregivers have received these instructio ns in written format and have expressed an understanding of the discharge inst ructions. The patient and/or caregivers are aware that any significant change in condition or worsening of symptoms should prompt an immediate return to [facility] or the closest emergency department or a call to 911. at 1542 RPT #:[id number] END OF REPORT [facility]12[facility]00 [facility] ([facility]) EMERGENCY PROVIDER REPORT REPORT#:[id number] REPORT STATUS: Signed DATE:12/16/19 TIME: 1751 PATIENT: VIMAL BARROSO UNIT #: [id number] ROOM/BED: AGE: 44 SEX: M PCP PHYS: No Primary or Family Ph ysician SERVICE AUTHOR: Germania Engel REGULATORY LEAD * ALL edits or amendments must be made on the Storwize/computer document * HPI-Headache General Confirmed Patient Yes Patient Type New patient Initial Greet Date/Time 12/16/19 1751 PCP none Presentation Chief Complaint Headache Hx Obtained From Patient Sudden in Onset? Yes Onset Occurred Days ago (2) Symptom Duration Since onset Progression since Onset Gradually worsening Location Frontal R, Frontal L Quality Painful Radiation No: Does not radiate. Severity: Onset Mild Severity: Current Moderate Exacerbated by Nothing Context Recent Healthcare Recent doctor visit Free Text HPI Notes Free Text HPI Notes 44-year-old male who reports past medical histor y of tobacco use, presents to the ER for complaints of headache to the frontal region x2 days gradually worsening. Patient reports he occasionally exper iences headaches but reports this headache is worse than usual. Patient repor ts he did take Motrin last night but states no medicati ons taken today. Patient reports associated cough x 2 weeks. 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 Risk-Headache Risk Stratification Stroke Risk factors reviewed )( Subarachnoid Hemorrhage Risk factors reviewed )( IC Mass Lesion Risk factors reviewed NIH Stroke Scale NIH Stroke Scale Response Value Level of Consciousness Alert and responsive (0) 0 Ask Month Age Both questions right (0) 0 Blink Eyes/Squeeze Hands Performs both tasks (0 ) 0 Horizontal EOM NL side/side eye mvmt (0) 0 Visual [place] No visual loss (0) 0 Facial Palsy Normal symmetry (0) 0 Right Arm Motor Drift (10s) No drift 10 sec (0 ) 0 Left Arm Motor Drift (10s) No drift 10 sec (0) 0 Right Leg Motor Drift (5s) No drift 5 sec (0) 0 Limb Ataxia FNF/Heel-Carranza No ataxia (0) 0 Sensation (Arms/Legs/Face) No sensory loss (0) 0 Language Aphasia No aphasia, normal (0) 0 Extinction/Inattention No extinct/inattent (0) 0 Total 0 Review of Systems Focused Review of Systems Constitutional Denies: Chills, Fatigue, Fever, Lethargy, Malais e, Recent wt loss, Weakness - generalized. Eyes Denies: Blurred R, Blurred L, Eye pain R, Eye pa in L, Redness R, Redness L, Swelling R, Swelling L. Ears/Nose/Throat Denies: Ear drainage R, Ear drainage L, Earache R, Earache L, Nasal congestion. GI Denies: Abdominal pain, Nausea, Vomiting. Musculoskeletal Denies: Extremity pain, Extremity swelling. Skin Denies: Rash. Neurologic Reports: Headache. Denies: Abnormal movement, Bl adder dysfunction, Bowel dysfunction, Change LOC, Confusion, Dizziness, F ocal weakness, Generalized weakness, Lightheaded, Numbness, Syncope. Psychiatric Denies: Homicidal ideation, Suicidal ideation. Additional Review of Systems Respiratory Reports: Cough, non-producti ve. Denies: Cough, productive, Dyspnea on exertion, Hemoptysis, Parox nocturnal dyspnea, Pleuritic p ain, Shortness of breath, Wheezing. Cardiovascular Denies: Chest pain, Dyspnea on exertion, Edema, Orthopnea, Palpitations, Parox nocturnal dyspnea, Syncope. Male Denies: Dysuria, Flank pain, Hematuria, Incontinence, Nocturia, Penile discharge , Penile lesion, Scrotal swe lling, Testicular pain, Testicular swelling, Urinary frequency, Urinary urgency, Urination decreased, Urination increased. Past Medical History - Adult Stated Complaint c/o cough and hidalgo Allergies Coded Allergies: No Known Allergies (11/27/19) Physical Exam Vital Signs Vital Signs First Documented: Result Date Time Pulse Ox 96 03/24 1750 B/P 154/111 03/24 1750 B/P Mean 125 12/15 1749 O2 Delivery Room air 12/15 1749 Temp 99.4 12/15 1749 Pulse 91 12/15 1749 Resp 20 12/15 1749 Last Documented: Result Date Time Pulse Ox 97 12/16 1903 B/P 150/104 12/16 1903 B/P Mean 119 12/16 1903 O2 Delivery Room air 12/16 1903 Temp 99.0 12/16 1903 Pulse 96 12/16 1903 Resp 18 12/16 1903 Review of Vital Signs Reviewed Focused PE General/Const General/Const Awake, Alert, No acute di stress, Well appearing, Well developed , Well hydrated, Well nourished, Cooperative, No t toxic appearing MS Head Head Atraumatic, Normocephalic Eyes Eyes Atraumatic, PERRL, EOMI Ears/Nose/Throat Ears/Nose/Throat Atraumatic, Airway patent, Muc ous membranes moist, Pharynx NL MS Neck Neck Atraumatic, Supple, No meningismus , Full range of motion, No adenopathy, No swelling, Non-tender, No midline vertebral te nd Resp/Chest Respiratory/Chest Atraumatic, Breath sounds NL, Breath sounds = bilat, No respiratory distress, No rales, No rhonchi, No w heezing, No retractions, No stridor, No chest tenderness, No chest wall defo rmity, No crepitus Cardiovascular Cardiovascular Heart rate NL, Regular rhythm, H eart sounds NL, No murmurs Abdomen/GI Abdomen/GI Atraumatic, Soft, Non-tender, McBurn ey's non-tender, No guarding, No rebound, BS normoactive, No distention Skin Skin Atraumatic, Color NL, No rash, War m, Dry, Intact, Turgor NL, No swelling Neurologic Neurologic Oriented X3, Speech NL, No motor def icits, No sensory deficits, Cerebellar NL, Memory NL, Gait NL Text/Dict Notes finger to nose test normal. negative romberg. no rmal tandem gait. Psychiatric Psychiatric Affect NL, Mood NL, Not suicidal, N ot homicidal, Thought content NL Additional PE MS Back Back Atraumatic, Inspection NL, Full range of m otion, Painless range of motion, Non-tender Lymphatic Lymphatic No gross adenopathy MS Upper Extrem Upper Extremity/MS Atraumatic, Inspection NL, F ull range of motion, No swelling, Non-tender, No erythema, No deformity MS Lower Extrem Lower Ext/Pelvis/MS Atraumatic, Inspection NL, Full range of motion, No swelling, Non-tender, No erythema, No deformity, Neurologic intact Interpretation Diagnostics Lab Results Interpretation Results Recent Impressions: CAT SCAN - CT HEAD/BRAIN W/O CONT 12/15 1804 Report Impression - Status: SIGNED Entered: 12/16/20191821 IMPRESSION: Unremarkable skull and brain, with n o mass or acute event identified. Impression By: KirtAGV - Deepak Tee MD Re-Evaluation MDM )( Re-Evaluation/Progress #1 Text/Dict Note On exam patient speaking in full complete senten alexander. Respirations nonlabored and even. Patient is in no acute distress. Lungs clear to auscultation upper and lung lower lobes. Mucous membranes moist. Pa tient behavior and appears appropriate for age. Labs and diagnostics ordere d to further evaluate patient symptoms.. Will order ct head brain w/o contrast to assess for tumor.. Time of Re-Eval 1751 Re-Evaluation/Progress #2 Text/Dict Note pt states his discomfort has resolved and he fee ls much better. imaging unremarkable..pt neurologica lly intact..nih negative..pt vitals stable..pt exam unremarkable..discussed discharge instructions, exam findings and follow upw with patient who verbalized understanding and ag kerry with discharge poc.. Time of Eval 1848 Re-Eval Status Resolved Eval Following Treatment Pt. feels better, Condi tion resolved Plan Post Re-Eval Plan discharge Headache MDM Note The patient presented to the emergency d epartment with a headache. The patient is now resting comfortably and feels better, is alert, talkative, interactive and in no distress. The angie ent appears well and is able to tolerate PO fluids. The repeat examination is un remarkable and benign. The patient is neurologically intact, has a normal mental status, and is ambul atory in the ED. The history, exam, diagnostic testing (if any) and the patien t's current condition do not suggest meningitis, stroke, sepsis, subarachnoid hemorrhage, intracranial bleeding, encephalitis, temporal arteritis or ot her significant pathology to warrant further testing, continued ED treatment, admission, neurological consultation, or other speci alist evaluation at this point. The vital signs have been stable. The patient's condition is stable a nd appropriate for discharge. The patient will pursue further outpatient evalu ation with the primary care physician or other designated or consulting phys ician as indicated in the discharge instructions. ED Course Medication(s) Ordered Medication(s) Ordered: Central Nervous System Agents Sig/Clari Start time Last Medication Dose Route Stop Time Status Admin Acetaminophen 1,000 MG X1ED STA 12/15 175 DC 0 12/15 PO 12/15 175 175 Ibuprofen 800 MG X1ED STA 12/15 175 CAN PO 12/15 175 Patient Discharge Departure Vital Signs/Condition Vital Signs First Documented: Result Date Time Pulse Ox 96 12/15 175 B/P 154/111 12/15 175 B/P Mean 125 12/15 1750 O2 Delivery Room air 12/15 175 Temp 99.4 12/15 175 Pulse 91 12/15 1750 Resp 20 12/15 1750 Last Documented: Result Date Time Pulse Ox 97 12/15 1904 B/P 150/104 12/15 1904 B/P Mean 119 12/15 1904 O2 Delivery Room air 12/15 190 Temp 99.0 12/15 190 Pulse 96 12/15 1904 Resp 18 12/15 1904 All vital signs available at the time of this en try have been reviewed. Clinical Impression Clinical Impression Primary Impression: Headache Disposition Decision Discharge )( Discharged to Home Yes )( Time 184 )( Date 12/16/19 Discharge/Care Plan Counseled Regarding Diagnosi s, Prescriptions, Need for follow-up, When to return to ED Prescriptions none Discharge Note I have spoken with the patie nt and/or caregivers. I have explained the patient's condition, diagnoses and vida atment plan based on the information available to me at this time. I have answered the patient's and/ or caregiver's questions and addressed any concerns. The patient and/or careg butch have as good an understanding of the patient 's diagnosis, condition and treatment plan as can be expected at this point. The vital signs have bee n stable. The patient's condition is stable and appr opriate for discharge from the emergency department. The patient will pursue further outpatient evalu ation with the primary care physician or other designated or consulting phys ician as outlined in the discharge instructions. The patient and/or caregivers are agreeable to this plan of care and follow-up instructions have been exp lained in detail. The patient and/or caregivers have received these instructio ns in written format and have expressed an understanding of the discharge inst ructions. The patient and/or caregivers are aware that any significant change in condition or worsening of symptoms should prompt an immediate return to [facility] or the closest emergency department or a call to 911. Free Text Depart Notes Free Text Depart Notes Follow up with your primary care doctor in the n ext 24 hours for re- evaluation..Drink plenty of water for hy dration, alternate between tylenol and motrin for discmfort and res t...Drink Plenty of fluids for hydration.. Alternate between Tylenol Motrin for d iscomfort and return to ER immediately for stiffness of neck, headache that gets worse or feels different from your normal headache, vomiting, drowsiness, confusion, dizzine ss, fainting, trouble walking, changes in speech, fever, weakness or numbness of extrem ity, or any worsening new or concerning symptoms. Electronically Signed by Germania Engel NP on at 0007 RPT #:[id number] END OF REPORT 2019-12-16 [facility] 17:52:00-00:00 [facility] ([facility]) EMERGENCY PROVIDER REPORT REPORT#:[id number] REPORT STATUS: Signed DATE:12/16/19 TIME: 1751 PATIENT: VIMAL BARROSO UNIT #: [id number] ROOM/BED: AGE: 44 SEX: M PCP PHYS: No Primary or Family Ph ysician SERVICE AUTHOR: Germania Engel REGULATORY LEAD * ALL edits or amendments must be made on the Stor[employer]ize/computer document * Germania Engel N. 12/16/191751: HPI-Headache General Confirmed Patient Yes Patient Type New patient PCP none Presentation Chief Complaint Headache Hx Obtained From Patient Sudden in Onset? Yes Onset Occurred Days ago (2) Symptom Duration Since onset Progression since Onset Gradually worsening Location Frontal R, Frontal L Quality Painful Radiation No: Does not radiate. Severity: Onset Mild Severity: Current Moderate Exacerbated by Nothing Context Recent Healthcare Recent doctor visit Free Text HPI Notes Free Text HPI Notes 44-year-old male who reports past medical histor y of tobacco use, presents to the ER for complaints of headache to the frontal region x2 days gradually worsening. Patient reports he occasionally exper iences headaches but reports this headache is worse than usual. Patient repor ts he did take Motrin last night but states no medicati ons taken today. Patient reports associated cough x 2 weeks. 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 Risk-Headache Risk Stratification Stroke Risk factors reviewed )( Subarachnoid Hemorrhage Risk factors reviewed )( IC Mass Lesion Risk factors reviewed NIH Stroke Scale NIH Stroke Scale Response Value Level of Consciousness Alert and responsive (0) 0 Ask Month Age Both questions right (0) 0 Blink Eyes/Squeeze Hands Performs both tasks (0 ) 0 Horizontal EOM NL side/side eye mvmt (0) 0 Visual [place] No visual loss (0) 0 Facial Palsy Normal symmetry (0) 0 Right Arm Motor Drift (10s) No drift 10 sec (0) 0 Left Arm Motor Drift (10s) No drift 10 sec (0) 0 Right Leg Motor Drift (5s) No drift 5 sec (0) 0 Limb Ataxia FNF/Heel-[place]arr[place] No ataxia (0) 0 Sensation (Arms/Legs/Face) No sensory loss (0) 0 Language Aphasia No aphasia, normal (0) 0 Extinction/Inattention No extinct/inattent (0) 0 Total 0 Review of Systems Focused Review of Systems Constitutional Denies: Chills, Fatigue, Fever, Lethargy, Malais e, Recent wt loss, Weakness - generalized. Eyes Denies: Blurred R, Blurred L, Eye pain R, Eye pa in L, Redness R, Redness L, Swelling R, Swelling L. Ears/Nose/Throat Denies: Ear drainage R, Ear drainage L, Earache R, Earache L, Nasal congestion. GI Denies: Abdominal pain, Nausea, Vomiting. Musculoskeletal Denies: Extremity pain, Extremity swelling. Skin Denies: Rash. Neurologic Reports: Headache. Denies: Abnormal movement, Bl adder dysfunction, Bowel dysfunction, Change LOC, Confusion, Dizziness, F ocal weakness, Generalized weakness, Lightheaded, Numbness, Syncope. Psychiatric Denies: Homicidal ideation, Suicidal ideation. Additional Review of Systems Respiratory Reports: Cough, non-producti ve. Denies: Cough, productive, Dyspnea on exertion, Hemoptysis, Parox nocturnal dyspnea, Pleuritic p ain, Shortness of breath, Wheezing. Cardiovascular Denies: Chest pain, Dyspnea on exertion, Edema, Orthopnea, Palpitations, Parox nocturnal dyspnea, Syncope. Male Denies: Dysuria, Flank pain, Hematuria, Incontinence, Nocturia, Penile discharge , Penile lesion, Scrotal swe lling, Testicular pain, Testicular swelling, Urinary frequency, Urinary urgency, Urination decreased, Urination increased. Past Medical History - Adult Stated Complaint c/o cough and [place] Allergies Coded Allergies: No Known Allergies (11/27/19) Physical Exam Vital Signs Vital Signs First Documented: Result Date Time Pulse Ox 96 12/15 1750 B/P 154/111 12/15 175 B/P Mean 125 12/15 1750 O2 Delivery Room air 12/15 175 Temp 99.4 12/15 175 Pulse 91 12/15 1750 Resp 20 12/15 1750 Last Documented: Result Date Time Pulse Ox 97 12/15 1904 B/P 150/104 12/15 1904 B/P Mean 119 12/15 1904 O2 Delivery Room air 12/15 190 Temp 99.0 12/15 190 Pulse 96 12/15 1904 Resp 18 12/15 190 Review of Vital Signs Reviewed Focused PE General/Const General/Const Awake, Alert, No acute di stress, Well appearing, Well developed , Well hydrated, Well nourished, Cooperative, No t toxic appearing MS Head Head Atraumatic, Normocephalic Eyes Eyes Atraumatic, PERRL, EOMI Ears/Nose/Throat Ears/Nose/Throat Atraumatic, Airway patent, Muc ous membranes moist, Pharynx NL MS Neck Neck Atraumatic, Supple, No meningismus , Full range of motion, No adenopathy, No swelling, Non-tender, No midline vertebral te nd Resp/Chest Respiratory/Chest Atraumatic, Breath sounds NL, Breath sounds = bilat, No respiratory distress, No rales, No rhonchi, No w heezing, No retractions, No stridor, No chest tenderness, No chest wall defo rmity, No crepitus Cardiovascular Cardiovascular Heart rate NL, Regular rhythm, H eart sounds NL, No murmurs Abdomen/GI Abdomen/GI Atraumatic, Soft, Non-tender, McBurn ey's non-tender, No guarding, No rebound, BS normoactive, No distention Skin Skin Atraumatic, Color NL, No rash, War m, Dry, Intact, Turgor NL, No swelling Neurologic Neurologic Oriented X3, Speech NL, No motor def icits, No sensory deficits, Cerebellar NL, Memory NL, Gait NL Text/Dict Notes finger to nose test normal. negative romberg. no rmal tandem gait. Psychiatric Psychiatric Affect NL, Mood NL, Not suicidal, N ot homicidal, Thought content NL Additional PE MS Back Back Atraumatic, Inspection NL, Full range of m otion, Painless range of motion, Non-tender Lymphatic Lymphatic No gross adenopathy MS Upper Extrem Upper Extremity/MS Atraumatic, Inspection NL, F ull range of motion, No swelling, Non-tender, No erythema, No deformity MS Lower Extrem Lower Ext/Pelvis/MS Atraumatic, Inspection NL, Full range of motion, No swelling, Non-tender, No erythema, No deformity, Neurologic intact Interpretation Diagnostics Lab Results Interpretation Results Recent Impressions: CAT SCAN - CT HEAD/BRAIN W/O CONT 12/15 1804 Report Impression - Status: SIGNED Entered: 12/16/20191821 IMPRESSION: Unremarkable skull and brain, with n o mass or acute event identified. Impression By: NancyV - Deepak Tee MD Re-Evaluation [facility] )( Re-Evaluation/Progress #1 Text/Dict Note On exam patient speaking in full complete senten alexander. Respirations nonlabored and even. Patient is in no acute distress. Lungs clear to auscultation upper and lung lower lobes. Mucous membranes moist. Pa tient behavior and appears appropriate for age. Labs and diagnostics ordere d to further evaluate patient symptoms.. Will order ct head brain w/o contrast to assess for tumor.. Time of Re-Eval 1751 Re-Evaluation/Progress #2 Text/Dict Note pt states his discomfort has resolved and he fee ls much better. imaging unremarkable..pt neurologica lly intact..nih negative..pt vitals stable..pt exam unremarkable..discussed discharge instructions, exam findings and follow upw with patient who verbalized understanding and ag kerry with discharge poc.. Time of Eval 1848 Re-Eval Status Resolved Eval Following Treatment Pt. feels better, Condi tion resolved Plan Post Re-Eval Plan discharge Headache MDM Note The patient presented to the emergency d epartment with a headache. The patient is now resting comfortably and feels better, is alert, talkative, interactive and in no distress. The angie ent appears well and is able to tolerate PO fluids. The repeat examination is un remarkable and benign. The patient is neurologically intact, has a normal mental status, and is ambul atory in the ED. The history, exam, diagnostic testing (if any) and the patien t's current condition do not suggest meningitis, stroke, sepsis, subarachnoid hemorrhage, intracranial bleeding, encephalitis, temporal arteritis or ot her significant pathology to warrant further testing, continued ED treatment, admission, neurological consultation, or other speci alist evaluation at this point. The vital signs have been stable. The patient's condition is stable a nd appropriate for discharge. The patient will pursue further outpatient evalu ation with the primary care physician or other designated or consulting phys ician as indicated in the discharge instructions. ED Course Medication(s) Ordered Medication(s) Ordered: Central Nervous System Agents Sig/Clari Start time Last Medication Dose Route Stop Time Status Admin Acetaminophen 1,000 MG X1ED STA 12/15 175 DC 0 12/15 PO 12/15 175 175 Ibuprofen 800 MG X1ED STA 12/15 175 CAN PO 12/15 175 Patient Discharge Departure Vital Signs/Condition Vital Signs First Documented: Result Date Time Pulse Ox 96 12/15 1750 B/P 154/111 12/15 1750 B/P Mean 125 12/15 1750 O2 Delivery Room air 12/15 175 Temp 99.4 12/15 175 Pulse 91 12/15 1750 Resp 20 12/15 175 Last Documented: Result Date Time Pulse Ox 97 12/15 190 B/P 150/104 12/15 190 B/P Mean 119 12/15 190 O2 Delivery Room air 12/16 1903 Temp 99.0 12/15 190 Pulse 96 12/15 190 Resp 18 12/15 190 All vital signs available at the time of this en try have been reviewed. Clinical Impression Clinical Impression Primary Impression: Headache Disposition Decision Discharge )( Discharged to Home Yes )( Time 184 )( Date 12/16/19 Discharge/Care Plan Counseled Regarding Diagnosi s, Prescriptions, Need for follow-up, When to return to ED Prescriptions none Discharge Note I have spoken with the patie nt and/or caregivers. I have explained the patient's condition, diagnoses and vida atment plan based on the information available to me at this time. I have answered the patient's and/ or caregiver's questions and addressed any concerns. The patient and/or careg butch have as good an understanding of the patient 's diagnosis, condition and treatment plan as can be expected at this point. The vital signs have bee n stable. The patient's condition is stable and appr opriate for discharge from the emergency department. The patient will pursue further outpatient evalu ation with the primary care physician or other designated or consulting phys ician as outlined in the discharge instructions. The patient and/or caregivers are agreeable to this plan of care and follow-up instructions have been exp lained in detail. The patient and/or caregivers have received these instructio ns in written format and have expressed an understanding of the discharge inst ructions. The patient and/or caregivers are aware that any significant change in condition or worsening of symptoms should prompt an immediate return to [facility] or the closest emergency department or a call to 911. Free Text Depart Notes Free Text Depart Notes Follow up with your primary care doctor in the n ext 24 hours for re- evaluation..Drink plenty of water for hy dration, alternate between tylenol and motrin for discmfort and res t...Drink Plenty of fluids for hydration.. Alternate between Tylenol Motrin for d iscomfort and return to ER immediately for stiffness of neck, headache that gets worse or feels different from your normal headache, vomiting, drowsiness, confusion, dizzine ss, fainting, trouble walking, changes in speech, fever, weakness or numbness of extrem ity, or any worsening new or concerning symptoms. Jadiel Young 12/22/19 0030: HPI-Headache General Initial Greet Date/Time 12/16/19 1751 Re-Evaluation MDM Free Text MDM Notes Free Text MDM Notes Pt seen and eval with midlevel Agree with chart as documented unless noted othe rwise by me Pt well appearing, non toxic Taking PO and ambulatory in ED Stable for dispo home with close f/u Pt agreeable with plan Patient Discharge Departure Supervising Physician Note MidLv/Doc Saw Pt 2 I have personally interviewed and examined the p atient. All charts, labs, and imaging studies were reviewe d. 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 Electronically Signed by Germania Engel REGULATORY LEAD on at 0007 at 0030 RPT #:[id number] END OF REPORT 2019-12-12 [facility] 08:43:00-00:00 [facility] ([facility]) EMERGENCY PROVIDER REPORT REPORT#:[id number] REPORT STATUS: Signed DATE:12/12/19 TIME: 842 PATIENT: VIMAL BARROSO UNIT #: [id number] ROOM/BED: AGE: 44 SEX: M PCP PHYS: No Primary or Family Ph ysician SERVICE AUTHOR: Germania Engel NP * ALL edits or amendments must be made on the St[employer]/computer document * HPI-URI/Cough/Cold General Confirmed Patient Yes Patient Type New patient Initial Greet Date/Time 12/12/19 0836 PCP none Presentation Chief Complaint Cough, non-productive, Nasal con gestion Hx Obtained From Patient Onset Occurred Weeks ago (2) Symptom Duration Since onset Progression since Onset Unchanged Exacerbated by Nothing Context Recent Healthcare No recent doctor visit Free Text HPI Notes Free Text HPI Notes 44-year-old male who reports no past medical his tory presents to the ER for complaints of dry cough x2 weeks intermi ttently. 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 Patient reports he is been experiencing cough intermitt ently throughout the day with associated runny nose/ nasal congestion. Patient st ates he was seen and evaluated here 2 weeks ago for same symptoms and placed on cough medication. Thompson velásquez states he does take the cough medication at nighttime but wants to be re evaluated due to what he has been hearing on the news about the coronavirus. Patient denies chest pain, shortness of breath, dizzine ss, wheezing, fever, chills, body aches, exposure to individual testing positive for coronavirus and denies any travel out of the country. Review of Systems Focused Review of Systems Constitutional Denies: Chills, Fatigue, Fever, Lethargy, Malais e, Recent wt loss, Weakness - generalized. Eyes Denies: Blurred R, Blurred L, Eye pain R, Eye pa in L, Redness R, Redness L. Ears/Nose/Throat Reports: Nasal congestion. Denies: Ear drainage R, Ear drainage L, Earache R, Earache L. Respiratory Reports: Cough, non-producti ve. Denies: Cough, productive, Dyspnea on exertion, Hemoptysis, Parox nocturnal dyspnea, Pleuritic p ain, Shortness of breath, Wheezing. GI Denies: Abdominal pain, Nausea, Vomiting. Skin Denies: Rash. Allergy/Immun Reports: Rhinorrhea. Neurologic Denies: Abnormal movement, Bladder dysfu nction, Bowel dysfunction, Change LOC, Confusion, Headache, Lightheaded, Numbness, Sync ope. Additional Review of Systems Cardiovascular Denies: Chest pain, Dyspnea on exertion, Edema, Orthopnea, Palpitations, Parox nocturnal dyspnea, Syncope. Musculoskeletal Denies: Extremity pain, Extremity swelling. Psychiatric Denies: Homicidal ideation, Suicidal ideation. Past Medical History - Adult Stated Complaint COUGHING AND NASAL DRAINAGE [address] [place] Allergies Coded Allergies: No Known Allergies (11/27/19) Physical Exam Vital Signs Vital Signs First Documented: Result Date Time Pulse Ox 98 12/11 0833 B/P 147/36 12/11 0833 B/P Mean 73 12/11 0833 Temp 98.6 12/11 0833 Pulse 71 12/11 0833 Resp 18 12/12 0733 Last Documented: Result Date Time Pulse Ox 98 12/11 0833 B/P 147/36 12/11 0833 B/P Mean 73 12/11 0833 Temp 98.6 12/11 0833 Pulse 71 12/11 0833 Resp 18 12/11 0833 Review of Vital Signs Reviewed Focused PE General/Const General/Const Awake, Alert, No acute di stress, Well appearing, Well developed , Well hydrated, Well nourished, Cooperative, No t toxic appearing Eyes Eyes Atraumatic, PERRL, EOMI Ears/Nose/Throat Ears/Nose/Throat Atraumatic, Airway patent, Muc ous membranes moist, Pharynx NL MS Neck Neck Atraumatic, Supple, No meningismus , Full range of motion, No adenopathy, No swelling, Non-tender, No midline vertebral te nd Resp/Chest Respiratory/Chest Atraumatic, Breath sounds NL, Breath sounds = bilat, No respiratory distress, No rales, No rhonchi, No w heezing, No retractions Cardiovascular Cardiovascular Heart rate NL, Regular rhythm, H eart sounds NL, No murmurs, Cap refill not delayed, Peripheral circulation N L, Pulses = bilaterally, No gross BP differential Text/Dict Notes no lower extremity edema Abdomen/GI Abdomen/GI Atraumatic, Soft, Non-tender, McBurn ey's non-tender, No guarding, No rebound, BS normoactive, No distention Skin Skin Atraumatic, Color NL, No rash, War m, Dry, Intact, Turgor NL, No swelling Neurologic Neurologic Oriented X3, Speech NL, No motor de ficits, No sensory deficits, Gait NL Additional PE MS Head Head Atraumatic, Normocephalic MS Back Back Atraumatic, Inspection NL, Full range of m otion, Painless range of motion, Non-tender Lymphatic Lymphatic No gross adenopathy MS Upper Extrem Upper Extremity/MS Atraumatic, Inspection NL MS Lower Extrem Lower Ext/Pelvis/MS Atraumatic, Inspection NL Right Leg/Calf Negative: Swelling present, Tenderness present, Ecchymosis present, Erythema present, Warmth present, R c sergio > L calf, L calf > R calf, Rupert's sign positive , Deformity proximal, Deform ity middle, Deformity distal, Open fracture present, Pulses distal absent, Pulses distal decreased, N euro deficit present. Left Leg/Calf Negative: Swelling present, Tenderness present, Ecchymosis present, Erythema present, Warmth present, R c assisted > L calf, L calf > R calf, Rupert's sign positive , Deformity proximal, Deform ity middle, Deformity distal, Open fracture present, Pulses distal absent, Pulses distal decreased, N euro deficit present. Psychiatric Psychiatric Affect NL, Mood NL, Not suicidal, N ot homicidal, Thought content NL Interpretation Diagnostics Lab Results Interpretation Results Recent Impressions: RADIOLOGY - XR CHEST 2 V 12/11 0871 Report Impression - Status: SIGNED Entered: 12/12/201914 IMPRESSION: No active disease. Impression By: Joanna Vargas Barron Jules Patient Discharge Departure Vital Signs/Condition Vital Signs First Documented: Result Date Time Pulse Ox 98 12/11 832 B/P 147/36 12/11 832 B/P Mean 73 12/12 0733 Temp 98.6 12/11 832 Pulse 71 12/11 832 Resp 18 12/12 0733 Last Documented: Result Date Time Pulse Ox 98 12/11 832 B/P 147/36 12/11 08 B/P Mean 73 12/11 832 Temp 98.6 12/11 832 Pulse 71 12/11 832 Resp 18 12/11 832 All vital signs available at the time of this en try have been reviewed. Clinical Impression Clinical Impression Primary Impression: Cough Disposition Decision Discharge )( Discharged to Home Yes )( Time 09 )( Date 12/12/19 Discharge/Care Plan Counseled Regarding Diagnosi s, Prescriptions, Need for follow-up, When to return to ED Prescriptions loratidine Discharge Note I have spoken with the patie nt and/or caregivers. I have explained the patient's condition, diagnoses and vida atment plan based on the information available to me at this time. I have answered the patient's and/ or caregiver's questions and addressed any concerns. The patient and/or careg butch have as good an understanding of the patient 's diagnosis, condition and treatment plan as can be expected at this point. The vital signs have bee n stable. The patient's condition is stable and appr opriate for discharge from the emergency department. The patient will pursue further outpatient evalu ation with the primary care physician or other designated or consulting phys ician as outlined in the discharge instructions. The patient and/or caregivers are agreeable to this plan of care and follow-up instructions have been exp lained in detail. The patient and/or caregivers have received these instructio ns in written format and have expressed an understanding of the discharge inst ructions. The patient and/or caregivers are aware that any significant change in condition or worsening of symptoms should prompt an immediate return to [facility] or the closest emergency department or a call to 911. Free Text Depart Notes Free Text Depart Notes Follow with your primary car e doctor in the next 3 days for re-evaluation and to establish primary care doctor. Drink plenty of f luids for hydration. Cough/ sneeze into sleeve of shirt to help prevent spre ading germs. Avoid the use of strong candle scents, incense, scented o il lamps as this can increase sneezing and coughing. Take prescriptions as prescribed. Strict return precautions: Return to ER immediately for fever, persisting cough, fast/irregular breathing, chest pain, shortness of breath or any worsening new or concerning symptoms. Electronically Signed by Germania Engel NP on at 0937 RPT #:[id number] END OF REPORT 2019-12-12 [facility] 08:43:00-00:00 [facility] ([facility]) EMERGENCY PROVIDER REPORT REPORT#:[id number] REPORT STATUS: Signed DATE:12/12/19 TIME: 842 PATIENT: VIMAL BARROSO UNIT #: [id number] ROOM/BED: AGE: 44 SEX: M PCP PHYS: No Primary or Family Ph ysician SERVICE AUTHOR: Germania Engel REGULATORY LEAD * ALL edits or amendments must be made on the Stor[employer]/computer document * Germania Engel N. 12/12/19 0843: HPI-URI/Cough/Cold General Confirmed Patient Yes Patient Type New patient PCP none Presentation Chief Complaint Cough, non-productive, Nasal con gestion Hx Obtained From Patient Onset Occurred Weeks ago (2) Symptom Duration Since onset Progression since Onset Unchanged Exacerbated by Nothing Context Recent Healthcare No recent doctor visit Free Text HPI Notes Free Text HPI Notes 44-year-old male who reports no past medical his tory presents to the ER for complaints of dry cough x2 weeks intermi ttently. 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 Patient reports he is been experiencing cough intermitt ently throughout the day with associated runny nose/ nasal congestion. Patient st ates he was seen and evaluated here 2 weeks ago for same symptoms and placed on cough medication. Thompson velásquez states he does take the cough medication at nighttime but wants to be re evaluated due to what he has been hearing on the news about the coronavirus. Patient denies chest pain, shortness of breath, dizzine ss, wheezing, fever, chills, body aches, exposure to individual testing positive for coronavirus and denies any travel out of the country. Review of Systems Focused Review of Systems Constitutional Denies: Chills, Fatigue, Fever, Lethargy, Malais e, Recent wt loss, Weakness - generalized. Eyes Denies: Blurred R, Blurred L, Eye pain R, Eye pa in L, Redness R, Redness L. Ears/Nose/Throat Reports: Nasal congestion. Denies: Ear drainage R, Ear drainage L, Earache R, Earache L. Respiratory Reports: Cough, non-producti ve. Denies: Cough, productive, Dyspnea on exertion, Hemoptysis, Parox nocturnal dyspnea, Pleuritic p ain, Shortness of breath, Wheezing. GI Denies: Abdominal pain, Nausea, Vomiting. Skin Denies: Rash. Allergy/Immun Reports: Rhinorrhea. Neurologic Denies: Abnormal movement, Bladder dysfu nction, Bowel dysfunction, Change LOC, Confusion, Headache, Lightheaded, Numbness, Sync ope. Additional Review of Systems Cardiovascular Denies: Chest pain, Dyspnea on exertion, Edema, Orthopnea, Palpitations, Parox nocturnal dyspnea, Syncope. Musculoskeletal Denies: Extremity pain, Extremity swelling. Psychiatric Denies: Homicidal ideation, Suicidal ideation. Past Medical History - Adult Stated Complaint COUGHING AND NASAL DRAINAGE [address] [place] Allergies Coded Allergies: No Known Allergies (11/27/19) Physical Exam Vital Signs Vital Signs First Documented: Result Date Time Pulse Ox 98 12/11 832 B/P 147/36 12/11 832 B/P Mean 73 12/11 08 Temp 98.6 12/11 832 Pulse 71 12/11 832 Resp 18 12/11 832 O2 Delivery Room air 12/12 931 Last Documented: Result Date Time Pulse Ox 96 12/12 931 B/P 131/86 12/12 931 B/P Mean 101 12/11 0832 O2 Delivery Room air 12/12 931 Temp 98.0 12/12 931 Pulse 62 12/12 931 Resp 16 12/12 931 Review of Vital Signs Reviewed Focused PE General/Const General/Const Awake, Alert, No acute di stress, Well appearing, Well developed , Well hydrated, Well nourished, Cooperative, No t toxic appearing Eyes Eyes Atraumatic, PERRL, EOMI Ears/Nose/Throat Ears/Nose/Throat Atraumatic, Airway patent, Muc ous membranes moist, Pharynx NL MS Neck Neck Atraumatic, Supple, No meningismus , Full range of motion, No adenopathy, No swelling, Non-tender, No midline vertebral te nd Resp/Chest Respiratory/Chest Atraumatic, Breath sounds NL, Breath sounds = bilat, No respiratory distress, No rales, No rhonchi, No w heezing, No retractions Cardiovascular Cardiovascular Heart rate NL, Regular rhythm, H eart sounds NL, No murmurs, Cap refill not delayed, Peripheral circulation N L, Pulses = bilaterally, No gross BP differential Text/Dict Notes no lower extremity edema Abdomen/GI Abdomen/GI Atraumatic, Soft, Non-tender, McBurn ey's non-tender, No guarding, No rebound, BS normoactive, No distention Skin Skin Atraumatic, Color NL, No rash, War m, Dry, Intact, Turgor NL, No swelling Neurologic Neurologic Oriented X3, Speech NL, No motor def icits, No sensory deficits, Gait NL Additional PE MS Head Head Atraumatic, Normocephalic MS Back Back Atraumatic, Inspection NL, Full range of m otion, Painless range of motion, Non-tender Lymphatic Lymphatic No gross adenopathy MS Upper Extrem Upper Extremity/MS Atraumatic, Inspection NL MS Lower Extrem Lower Ext/Pelvis/MS Atraumatic, Inspection NL Right Leg/Calf Negative: Swelling present, Tenderness present, Ecchymosis present, Erythema present, Warmth present, R c assisted > L calf, L calf > R calf, Rupert's sign positive , Deformity proximal, Deform ity middle, Deformity distal, Open fracture present, Pulses distal absent, Pulses distal decreased, N euro deficit present. Left Leg/Calf Negative: Swelling present, Tenderness present, Ecchymosis present, Erythema present, Warmth present, R c assisted > L calf, L calf > R calf, Rupert's sign positive , Deformity proximal, Deform ity middle, Deformity distal, Open fracture present, Pulses distal absent, Pulses distal decreased, N euro deficit present. Psychiatric Psychiatric Affect NL, Mood NL, Not suicidal, N ot homicidal, Thought content NL Interpretation Diagnostics Lab Results Interpretation Results Recent Impressions: RADIOLOGY - XR CHEST 2 V 12/11 2192 Report Impression - Status: SIGNED Entered: 12/12/2019913 IMPRESSION: No active disease. Impression By: Joanna - Barron Jules Patient Discharge Departure Vital Signs/Condition Vital Signs First Documented: Result Date Time Pulse Ox 98 12/11 832 B/P 147/36 12/11 832 B/P Mean 73 12/11 832 Temp 98.6 12/11 832 Pulse 71 12/11 832 Resp 18 12/11 832 O2 Delivery Room air 12/12 931 Last Documented: Result Date Time Pulse Ox 96 12/12 931 B/P 131/86 12/12 931 B/P Mean 101 12/12 931 O2 Delivery Room air 12/12 931 Temp 98.0 12/12 931 Pulse 62 12/12 931 Resp 16 12/12 931 All vital signs available at the time of this en try have been reviewed. Clinical Impression Clinical Impression Primary Impression: Cough Disposition Decision Discharge )( Discharged to Home Yes )( Time 922 )( Date 12/12/19 Discharge/Care Plan Counseled Regarding Diagnosi s, Prescriptions, Need for follow-up, When to return to ED Prescriptions loratidine Discharge Note I have spoken with the patie nt and/or caregivers. I have explained the patient's condition, diagnoses and vida atment plan based on the information available to me at this time. I have answered the patient's and/ or caregiver's questions and addressed any concerns. The patient and/or careg butch have as good an understanding of the patient 's diagnosis, condition and treatment plan as can be expected at this point. The vital signs have bee n stable. The patient's condition is stable and appr opriate for discharge from the emergency department. The patient will pursue further outpatient evalu ation with the primary care physician or other designated or consulting phys ician as outlined in the discharge instructions. The patient and/or caregivers are agreeable to this plan of care and follow-up instructions have been exp lained in detail. The patient and/or caregivers have received these instructio ns in written format and have expressed an understanding of the discharge inst ructions. The patient and/or caregivers are aware that any significant change in condition or worsening of symptoms should prompt an immediate return to [facility] or the closest emergency department or a call to 911. Free Text Depart Notes Free Text Depart Notes Follow with your primary car e doctor in the next 3 days for re-evaluation and to establish primary care doctor. Drink plenty of f luids for hydration. Cough/ sneeze into sleeve of shirt to help prevent spre ading germs. Avoid the use of strong candle scents, incense, scented o il lamps as this can increase sneezing and coughing. Take prescriptions as prescribed. Strict return precautions: Return to ER immediately for fever, persisting cough, fast/irregular breathing, chest pain, shortness of breath or any worsening new or concerning symptoms. MolineDiya 12/16/19 1011: HPI-URI/Cough/Cold General Initial Greet Date/Time 12/12/19 0836 Patient Discharge Departure Supervising Physician Note MidLv Saw Pt Alone I have reviewed the PA/REGULATORY LEAD's note and plan of car e. I was available for consultation as needed at al l times during the patient's visit in the emergency department. I did not hear about this patient du ring the visit. Electronically Signed by Germania Engel NP on at 0937 RPT #:[id number] END OF REPORT 2019-12-12 [facility] 08:43:00-00:00 [facility] ([facility]) EMERGENCY PROVIDER REPORT REPORT#:[id number] REPORT STATUS: Signed DATE:12/12/19 TIME: 0843 PATIENT: VIMAL BARROSO UNIT #: [id number] ROOM/BED: AGE: 44 SEX: M PCP PHYS: No Primary or Family Ph ysician SERVICE AUTHOR: Germania Engel REGULATORY LEAD * ALL edits or amendments must be made on the St[employer]/computer document * Germania Engel N. 12/12/19 0843: HPI-URI/Cough/Cold General Confirmed Patient Yes Patient Type New patient PCP none Presentation Chief Complaint Cough, non-productive, Nasal con gestion Hx Obtained From Patient Onset Occurred Weeks ago (2) Symptom Duration Since onset Progression since Onset Unchanged Exacerbated by Nothing Context Recent Healthcare No recent doctor visit Free Text HPI Notes Free Text HPI Notes 44-year-old male who reports no past medical his tory presents to the ER for complaints of dry cough x2 weeks intermi ttently. 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 Patient reports he is been experiencing cough intermitt ently throughout the day with associated runny nose/ nasal congestion. Patient ates he was seen and evaluated here 2 weeks ago for same symptoms and placed on cough medication. Thompson velásquez states he does take the cough medication at nighttime but wants to be re evaluated due to what he has been hearing on the news about the coronavirus. Patient denies chest pain, shortness of breath, dizzine ss, wheezing, fever, chills, body aches, exposure to individual testing positive for coronavirus and denies any travel out of the country. Review of Systems Focused Review of Systems Constitutional Denies: Chills, Fatigue, Fever, Lethargy, Malais e, Recent wt loss, Weakness - generalized. Eyes Denies: Blurred R, Blurred L, Eye pain R, Eye pa in L, Redness R, Redness L. Ears/Nose/Throat Reports: Nasal congestion. Denies: Ear drainage R, Ear drainage L, Earache R, Earache L. Respiratory Reports: Cough, non-producti ve. Denies: Cough, productive, Dyspnea on exertion, Hemoptysis, Parox nocturnal dyspnea, Pleuritic p ain, Shortness of breath, Wheezing. GI Denies: Abdominal pain, Nausea, Vomiting. Skin Denies: Rash. Allergy/Immun Reports: Rhinorrhea. Neurologic Denies: Abnormal movement, Bladder dysfu nction, Bowel dysfunction, Change LOC, Confusion, Headache, Lightheaded, Numbness, Sync ope. Additional Review of Systems Cardiovascular Denies: Chest pain, Dyspnea on exertion, Edema, Orthopnea, Palpitations, Parox nocturnal dyspnea, Syncope. Musculoskeletal Denies: Extremity pain, Extremity swelling. Psychiatric Denies: Homicidal ideation, Suicidal ideation. Past Medical History - Adult Stated Complaint COUGHING AND NASAL DRAINAGE [address] [place] Allergies Coded Allergies: No Known Allergies (11/27/19) Physical Exam Vital Signs Vital Signs First Documented: Result Date Time Pulse Ox 98 12/11 832 B/P 147/36 12/11 832 B/P Mean 73 12/11 832 Temp 98.6 12/11 832 Pulse 71 12/11 08 Resp 18 12/11 832 O2 Delivery Room air 12/12 931 Last Documented: Result Date Time Pulse Ox 96 12/12 931 B/P 131/86 12/12 931 B/P Mean 101 12/12 931 O2 Delivery Room air 12/12 931 Temp 98.0 12/12 931 Pulse 62 12/12 931 Resp 16 12/12 931 Review of Vital Signs Reviewed Focused PE General/Const General/Const Awake, Alert, No acute di stress, Well appearing, Well developed , Well hydrated, Well nourished, Cooperative, No t toxic appearing Eyes Eyes Atraumatic, PERRL, EOMI Ears/Nose/Throat Ears/Nose/Throat Atraumatic, Airway patent, Muc ous membranes moist, Pharynx NL MS Neck Neck Atraumatic, Supple, No meningismus , Full range of motion, No adenopathy, No swelling, Non-tender, No midline vertebral te nd Resp/Chest Respiratory/Chest Atraumatic, Breath sounds NL, Breath sounds = bilat, No respiratory distress, No rales, No rhonchi, No w heezing, No retractions Cardiovascular Cardiovascular Heart rate NL, Regular rhythm, H eart sounds NL, No murmurs, Cap refill not delayed, Peripheral circulation N L, Pulses = bilaterally, No gross BP differential Text/Dict Notes no lower extremity edema Abdomen/GI Abdomen/GI Atraumatic, Soft, Non-tender, McBurn ey's non-tender, No guarding, No rebound, BS normoactive, No distention Skin Skin Atraumatic, Color NL, No rash, War m, Dry, Intact, Turgor NL, No swelling Neurologic Neurologic Oriented X3, Speech NL, No motor def icits, No sensory deficits, Gait NL Additional PE MS Head Head Atraumatic, Normocephalic MS Back Back Atraumatic, Inspection NL, Full range of m otion, Painless range of motion, Non-tender Lymphatic Lymphatic No gross adenopathy MS Upper Extrem Upper Extremity/MS Atraumatic, Inspection NL MS Lower Extrem Lower Ext/Pelvis/MS Atraumatic, Inspection NL Right Leg/Calf Negative: Swelling present, Tenderness present, Ecchymosis present, Erythema present, Warmth present, R c assisted > L calf, L calf > R calf, Rupert's sign positive , Deformity proximal, Deform ity middle, Deformity distal, Open fracture present, Pulses distal absent, Pulses distal decreased, N euro deficit present. Left Leg/Calf Negative: Swelling present, Tenderness present, Ecchymosis present, Erythema present, Warmth present, R c assisted > L calf, L calf > R calf, Rupert's sign positive , Deformity proximal, Deform ity middle, Deformity distal, Open fracture present, Pulses distal absent, Pulses distal decreased, N euro deficit present. Psychiatric Psychiatric Affect NL, Mood NL, Not suicidal, N ot homicidal, Thought content NL Interpretation Diagnostics Lab Results Interpretation Results Recent Impressions: RADIOLOGY - XR CHEST 2 V 12/12 851 Report Impression - Status: SIGNED Entered: 12/12/2019913 IMPRESSION: No active disease. Impression By: Joanna - Barron Jules Patient Discharge Departure Vital Signs/Condition Vital Signs First Documented: Result Date Time Pulse Ox 98 12/11 0833 B/P 147/36 12/11 0833 B/P Mean 73 12/11 0833 Temp 98.6 12/11 0833 Pulse 71 12/11 0833 Resp 18 12/11 0833 O2 Delivery Room air 12/11 0932 Last Documented: Result Date Time Pulse Ox 96 12/11 0932 B/P 131/86 12/11 0932 B/P Mean 101 12/11 0932 O2 Delivery Room air 12/11 0932 Temp 98.0 12/11 0932 Pulse 62 12/11 0932 Resp 16 12/11 0932 All vital signs available at the time of this en try have been reviewed. Clinical Impression Clinical Impression Primary Impression: Cough Disposition Decision Discharge )( Discharged to Home Yes )( Time 922 )( Date 12/12/19 Discharge/Care Plan Counseled Regarding Diagnosi s, Prescriptions, Need for follow-up, When to return to ED Prescriptions loratidine Discharge Note I have spoken with the patie nt and/or caregivers. I have explained the patient's condition, diagnoses and vida atment plan based on the information available to me at this time. I have answered the patient's and/ or caregiver's questions and addressed any concerns. The patient and/or careg butch have as good an understanding of the patient 's diagnosis, condition and treatment plan as can be expected at this point. The vital signs have bee n stable. The patient's condition is stable and appr opriate for discharge from the emergency department. The patient will pursue further outpatient evalu ation with the primary care physician or other designated or consulting phys ician as outlined in the discharge instructions. The patient and/or caregivers are agreeable to this plan of care and follow-up instructions have been exp lained in detail. The patient and/or caregivers have received these instructio ns in written format and have expressed an understanding of the discharge inst ructions. The patient and/or caregivers are aware that any significant change in condition or worsening of symptoms should prompt an immediate return to [facility] or the closest emergency department or a call to 911. Free Text Depart Notes Free Text Depart Notes Follow with your primary car e doctor in the next 3 days for re-evaluation and to establish primary care doctor. Drink plenty of f luids for hydration. Cough/ sneeze into sleeve of shirt to help prevent spre ading germs. Avoid the use of strong candle scents, incense, scented o il lamps as this can increase sneezing and coughing. Take prescriptions as prescribed. Strict return precautions: Return to ER immediately for fever, persisting cough, fast/irregular breathing, chest pain, shortness of breath or any worsening new or concerning symptoms. Diya Hernandez 12/16/19 1011: HPI-URI/Cough/Cold General Initial Greet Date/Time 12/12/19 0836 Patient Discharge Departure Supervising Physician Note MidLv Saw Pt Alone I have reviewed the PA/REGULATORY LEAD's note and plan of car e. I was available for consultation as needed at al l times during the patient's visit in the emergency department. I did not hear about this patient du ring the visit. Electronically Signed by Germania Engel NP on at 0937 Electronically Signed by Diya Hernandez MD on at 1017 RPT #:[id number] END OF REPORT 2019-11-27 [facility] 07:48:00-00:00 [facility] ([facility]) EMERGENCY PROVIDER REPORT REPORT#:[id number] REPORT STATUS: Signed DATE:11/27/19 TIME: 07 PATIENT: VIMAL BARROSO UNIT #: [id number] ROOM/BED: AGE: 43 SEX: M PCP PHYS: No Primary or Family Ph ysician SERVICE AUTHOR: Tamara Bishop * ALL edits or amendments must be made on the [employer] document * HPI-URI/Cough/Cold General Confirmed Patient Yes Patient Type New patient Initial Greet Date/Time 11/27/19 0738 Presentation Chief Complaint Cough, non-productive, Fever, Na guillermina congestion, Runny nose, Upper resp infection Hx Obtained From Patient Onset Occurred Yesterday Symptom Duration Since onset Severity: Current No pain currently Associated with Reports: Cough, Fever, Rhino rrhea. Denies: Abdominal pain, Anorexia, Arthralgia , Body aches, Chest pain, Chills, Diarrhea, Ear pain/ache, Headache, Myalgia, Nausea, Neck pain, Rash, Shortness of breath, So re throat, Sputum production, Vomiting. Exacerbated by Nothing Relieved by Nothing Context Related History Reports: Asthma. Free Text HPI Notes Free Text HPI Notes Patient is a 43-year-old mal e who presents to ER with complaint of cough, nasal congestion, subjective fever that started yester day. Patient states that his work told him he had to be seen by physician to return. Denies any headache ( states sinus forehead pressure), dizziness, visu al disturbances, neck pain/ stiffness, shortness of breath, chest pain, whee zing, abdominal pain, nausea, vomiting, diarrhea. Review of Systems ROS Statements All systems rev neg except as marked. Focused Review of Systems Constitutional Reports: Chills, Fever. Eyes Denies: Eye pain bilat, Redness bilat. Ears/Nose/Throat Reports: Nasal congestion, Sinus problem. Denies : Earache bilat, Sore throat. Respiratory Reports: Cough, non-productive. Denies: Pleuriti c pain, Shortness of breath. GI Denies: Abdominal pain, Diarrhea, Nausea, Vomiti ng. Skin Denies: Rash, Swelling. Neurologic Denies: Dizziness, Generalized weakness, Headach e. Additional Review of Systems Cardiovascular Denies: Chest pain. Musculoskeletal Denies: Myalgia, Neck pain. Past Medical History - Adult Stated Complaint C/O FEVER, HEADACHE X 1 DAY Allergies Coded Allergies: No Known Allergies (11/27/19) Review of Nursing Notes Not reviewed nurse notes Physical Exam Vital Signs Vital Signs First Documented: Result Date Time Pulse Ox 100 11/27 735 B/P 144/74 11/27 735 B/P Mean 97 11/27 735 O2 Delivery Room air 11/27 735 Temp 98.9 11/27 735 Pulse 66 11/27 735 Resp 18 11/27 735 Last Documented: Result Date Time Pulse Ox 98 11/26 740 B/P 131/70 11/26 740 B/P Mean 90 11/26 740 O2 Delivery Room air 11/26 740 Temp 98.7 11/26 740 Pulse 66 11/26 740 Resp 18 11/26 740 Review of Vital Signs Reviewed Focused PE General/Const General/Const Awake, Alert, No acute distress, Well appearing Eyes Eyes Atraumatic, PERRL, EOMI, Conjunctiva NL, E yelids NL Ears/Nose/Throat Ears/Nose/Throat Atraumatic, Airway patent, Muc ous membranes moist, Pharynx NL, Tympanic membs NL, Ext aud canal NL, Nose ex am NL, No sinus tenderness MS Neck Neck Atraumatic, Supple, No meningismus, Full r eddy of motion, No adenopathy Resp/Chest Respiratory/Chest Atraumatic, Breath sounds NL, Breath sounds = bilat, No respiratory distress, No rhonchi, No wheezing Cardiovascular Cardiovascular Heart rate NL, Regular rhythm, H eart sounds NL Skin Skin Atraumatic, Color NL, No rash, War m, Dry, Intact, Turgor NL, No swelling Neurologic Neurologic Oriented X3, Speech NL, No motor def icits, No sensory deficits Additional PE MS Head Head Atraumatic, Normocephalic Psychiatric Psychiatric Affect NL, Mood NL Interpretation Diagnostics Lab Results Interpretation Results Microbiology: Date/Time Procedure - Status Source Growth 11/26 748 Influenza Virus Type B Antigen - COM P NASAL 11/26 748 Influenza Virus Type A Antigen - CO MP NASAL Lab Statement Laboratory studies reviewed and considered in e medical decision-making. Point of Care Testing Micro Interpretation Influenza rapid - neg Pulse Oximetry Pulse Ox % 100 On: Room air Interpretation Interpreted by me, Pulse oximetr y normal Time 0751 Re-Evaluation MDM Re-Evaluation/Progress URI/Flu Adult MDM Note The patient is now resting c omfortably, is alert and in no distress. The patient has a normal mental status and is neurologically intact. The patient appears well and is able to tolerate food or fluid by mouth, and there is no significant dehydration. There is no res piratory distress and no signs of systemic toxicity. The history, exam, diagnostic testing (if any) a nd current condition do not demonstrate an infectious process such as mening itis, severe pneumonia, retropharyngeal abscess, epiglottitis, sepsis or other serious bacterial infection requiring further testing, treatment, consultation, or admission at this time. The vital signs have been sta ble. The patient's condition is stable and appropriate for discharge. The patient will pursue further outpatient evaluation with the primary care physician or ot her designated or consulting physician as indicated in the discharge instruct ions. ED Course Time 846 Patient Course Stable Safety Concerns Patient is safe Patient Discharge Departure Vital Signs/Condition Vital Signs First Documented: Result Date Time Pulse Ox 100 11/26 0636 B/P 144/74 11/27 735 B/P Mean 97 11/27 735 O2 Delivery Room air 11/27 735 Temp 98.9 11/27 735 Pulse 66 11/27 735 Resp 18 11/26 0636 Last Documented: Result Date Time Pulse Ox 98 11/26 740 B/P 131/70 / 0741 B/P Mean 90 11/26 0641 O2 Delivery Room air 11/26 740 Temp 98.7 11/26 740 Pulse 66 11/26 740 Resp 18 11/26 0641 All vital signs available at the time of this en try have been reviewed. Condition Stable Clinical Impression Clinical Impression Primary Impression: URI (upper respiratory infec tion) Time of Impression 0847 Disposition Decision Discharge )( Discharged to Home Yes )( Time 08 )( Date 11/27/19 Discharge/Care Plan Counseled Regarding Diagnosis, Lab resul ts, Need for follow-up, When to return to ED Prescriptions bromfed dm Discharge Note I have spoken with the patie nt and/or caregivers. I have explained the patient's condition, diagnoses and vida atment plan based on the information available to me at this time. I have answered the patient's and/ or caregiver's questions and addressed any concerns. The patient and/or careg butch have as good an understanding of the patient 's diagnosis, condition and treatment plan as can be expected at this point. The vital signs have bee n stable. The patient's condition is stable and appr opriate for discharge from the emergency department. The patient will pursue further outpatient evalu ation with the primary care physician or other designated or consulting phys ician as outlined in the discharge instructions. The patient and/or caregivers are agreeable to this plan of care and follow-up instructions have been exp lained in detail. The patient and/or caregivers have received these instructio ns in written format and have expressed an understanding of the discharge inst ructions. The patient and/or caregivers are aware that any significant change in condition or worsening of symptoms should prompt an immediate return to [facility] or the closest emergency department or a call to 911. at 0850 RPT #:[id number] END OF REPORT 2019-11-27 [facility] 07:48:00-00:00 [facility] ([facility]) EMERGENCY PROVIDER REPORT REPORT#:[id number] REPORT STATUS: Signed DATE:11/27/19 TIME: 747 PATIENT: VIMAL BARROSO UNIT #: [id number] ROOM/BED: AGE: 43 SEX: M PCP PHYS: No Primary or Family Ph ysician SERVICE AUTHOR: Tamara Bishop * ALL edits or amendments must be made on the [employer]/computer document * Tamara Bishop 11/27/19 0748: HPI-URI/Cough/Cold General Confirmed Patient Yes Patient Type New patient Presentation Chief Complaint Cough, non-productive, Fever, Na guillermina congestion, Runny nose, Upper resp infection Hx Obtained From Patient Onset Occurred Yesterday Symptom Duration Since onset Severity: Current No pain currently Associated with Reports: Cough, Fever, Rhino rrhea. Denies: Abdominal pain, Anorexia, Arthralgia , Body aches, Chest pain, Chills, Diarrhea, Ear pain/ache, Headache, Myalgia, Nausea, Neck pain, Rash, Shortness of breath, So re throat, Sputum production, Vomiting. Exacerbated by Nothing Relieved by Nothing Context Related History Reports: Asthma. Free Text HPI Notes Free Text HPI Notes Patient is a 43-year-old mal e who presents to ER with complaint of cough, nasal congestion, subjective fever that started yester day. Patient states that his work told him he had to be seen by physician to return. Denies any headache ( states sinus forehead pressure), dizziness, visu al disturbances, neck pain/ stiffness, shortness of breath, chest pain, whee zing, abdominal pain, nausea, vomiting, diarrhea. Review of Systems ROS Statements All systems rev neg except as marked. Focused Review of Systems Constitutional Reports: Chills, Fever. Eyes Denies: Eye pain bilat, Redness bilat. Ears/Nose/Throat Reports: Nasal congestion, Sinus problem. Denies : Earache bilat, Sore throat. Respiratory Reports: Cough, non-productive. Denies: Pleuriti c pain, Shortness of breath. GI Denies: Abdominal pain, Diarrhea, Nausea, Vomiti ng. Skin Denies: Rash, Swelling. Neurologic Denies: Dizziness, Generalized weakness, Headach e. Additional Review of Systems Cardiovascular Denies: Chest pain. Musculoskeletal Denies: Myalgia, Neck pain. Past Medical History - Adult Stated Complaint C/O FEVER, HEADACHE X 1 DAY Allergies Coded Allergies: No Known Allergies (11/27/19) Review of Nursing Notes Not reviewed nurse notes Physical Exam Vital Signs Vital Signs First Documented: Result Date Time Pulse Ox 100 11/26 0636 B/P 144/74 11/26 0636 B/P Mean 97 11/26 0736 O2 Delivery Room air 11/27 735 Temp 98.9 11/26 0736 Pulse 66 / 0736 Resp 18 11/26 0736 Last Documented: Result Date Time Pulse Ox 96 / 0903 B/P 133/72 / 0903 B/P Mean 92 11/26 0903 O2 Delivery Room air 11/26 0903 Pulse 62 / 0903 Resp 17 / 0903 Temp 98.7 /05 0741 Review of Vital Signs Reviewed Focused PE General/Const General/Const Awake, Alert, No acute distress, Well appearing Eyes Eyes Atraumatic, PERRL, EOMI, Conjunctiva NL, E yelids NL Ears/Nose/Throat Ears/Nose/Throat Atraumatic, Airway patent, Muc ous membranes moist, Pharynx NL, Tympanic membs NL, Ext aud canal NL, Nose ex am NL, No sinus tenderness MS Neck Neck Atraumatic, Supple, No meningismus, Full r eddy of motion, No adenopathy Resp/Chest Respiratory/Chest Atraumatic, Breath sounds NL, Breath sounds = bilat, No respiratory distress, No rhonchi, No wheezing Cardiovascular Cardiovascular Heart rate NL, Regular rhythm, H eart sounds NL Skin Skin Atraumatic, Color NL, No rash, War m, Dry, Intact, Turgor NL, No swelling Neurologic Neurologic Oriented X3, Speech NL, No motor def icits, No sensory deficits Additional PE MS Head Head Atraumatic, Normocephalic Psychiatric Psychiatric Affect NL, Mood NL Interpretation Diagnostics Lab Results Interpretation Results Microbiology: Date/Time Procedure - Status Source Growth 11/26 748 Influenza Virus Type B Antigen - COM P NASAL 11/26 748 Influenza Virus Type A Antigen - COM P NASAL Lab Statement Laboratory studies reviewed and considered in e medical decision-making. Point of Care Testing Micro Interpretation Influenza rapid - neg Pulse Oximetry Pulse Ox % 100 On: Room air Interpretation Interpreted by me, Pulse oximetr y normal Time 0751 Re-Evaluation MDM Re-Evaluation/Progress URI/Flu Adult MDM Note The patient is now resting c omfortably, is alert and in no distress. The patient has a normal mental status and is neurologically intact. The patient appears well and is able to tolerate food or fluid by mouth, and there is no significant dehydration. There is no res piratory distress and no signs of systemic toxicity. The history, exam, diagnostic testing (if any) a nd current condition do not demonstrate an infectious process such as mening itis, severe pneumonia, retropharyngeal abscess, epiglottitis, sepsis or other serious bacterial infection requiring further testing, treatment, consultation, or admission at this time. The vital signs have been sta ble. The patient's condition is stable and appropriate for discharge. The patient will pursue further outpatient evaluation with the primary care physician or ot her designated or consulting physician as indicated in the discharge instruct ions. ED Course Time 0847 Patient Course Stable Safety Concerns Patient is safe Patient Discharge Departure Vital Signs/Condition Vital Signs First Documented: Result Date Time Pulse Ox 100 11/27 735 B/P 144/74 11/27 735 B/P Mean 97 11/27 735 O2 Delivery Room air 11/27 735 Temp 98.9 11/27 735 Pulse 66 11/27 735 Resp 18 11/27 735 Last Documented: Result Date Time Pulse Ox 96 11/26 902 B/P 133/72 11/26 902 B/P Mean 92 11/26 902 O2 Delivery Room air 11/26 902 Pulse 62 11/26 902 Resp 17 11/26 902 Temp 98.7 11/26 0741 All vital signs available at the time of this en try have been reviewed. Condition Stable Clinical Impression Clinical Impression Primary Impression: URI (upper respiratory infec tion) Time of Impression 0847 Disposition Decision Discharge )( Discharged to Home Yes )( Time 0847 )( Date 11/27/19 Discharge/Care Plan Counseled Regarding Diagnosis, Lab resul ts, Need for follow-up, When to return to ED Prescriptions bromfed dm Discharge Note I have spoken with the patie nt and/or caregivers. I have explained the patient's condition, diagnoses and vida atment plan based on the information available to me at this time. I have answered the patient's and/ or caregiver's questions and addressed any concerns. The patient and/or careg butch have as good an understanding of the patient 's diagnosis, condition and treatment plan as can be expected at this point. The vital signs have bee n stable. The patient's condition is stable and appr opriate for discharge from the emergency department. The patient will pursue further outpatient evalu ation with the primary care physician or other designated or consulting phys ician as outlined in the discharge instructions. The patient and/or caregivers are agreeable to this plan of care and follow-up instructions have been exp lained in detail. The patient and/or caregivers have received these instructio ns in written format and have expressed an understanding of the discharge inst ructions. The patient and/or caregivers are aware that any significant change in condition or worsening of symptoms should prompt an immediate return to [facility] or the closest emergency department or a call to 911. aPpa Griffin 11/27/19 1411: HPI-URI/Cough/Cold General Initial Greet Date/Time 11/27/19 0738 Patient Discharge Departure Supervising Physician Note MidLv Saw Pt Alone I have reviewed the PA/REGULATORY LEAD's note and plan of car e. I was available for consultation as needed at al l times during the patient's visit in the emergency department. I agree with the clinical impression , plan and disposition. at 0850 Electronically Signed by Papa Griffin DO on at 1411 [facility] [place] #:[id number] END OF REPORT 2017-10-21 MOUSTAPHA Norton - 14:48:00-00:00 Discharge Instructions 2 Karen villalba (LUF/BLANCA/SA) Discharge Diagnosis Back Pain Important Information Consult your physician or re turn to the Emergency Department immediately if worse, if not better as expected, or if any problems arise. Follow Up Care Yes Important Information Please understand that you have received care on ly on an emergency basis. If your condition does not i mprove, you should call your personal physician for follow-up care. If you do not have a physician, you may call the referred physician listed. If you have questions about your care or these discharge instructions, you may call the Emergency Department. Please take your discharge paperwork with you to any follow-up appointments. Follow-Up With: Primary Care Physician Follow up Provider 1 Follow up with PCP at 1st available appointment Activity Level As tolerated, unrestricted Diet Regular Prescriptions Given Via: Printed and given to patient/caregiver. Patient Teaching Patient education provided
[2023-02-13 07:43] LABS: Specific Gravity > 1.030 (1.005-1.030); Urine Bacteria None Seen /HPF (<20); Urine Bilirubin NEGATIVE (Negative); Urine Blood Negative (Negative); Urine Clarity Clear (Clear); Urine Color Yellow (Yellow); Urine Glucose NEGATIVE (Negative); Urine Mucus 2+ /HPF (None Seen); Urine Protein 1+ (Negative); Urine RBC <5 /HPF (None Seen); Urine Urobilinogen 1+ (Normal); Urine pH 5.5 (5.0-7.0)
[2023-02-13] MEDS ORDERED: FENTANYL CITR 100 MCG/2 ML ONE (07:53)
[2023-02-13] MEDS ORDERED: ONDANSETRON 4 MG/2 ML VIAL ONE (07:53)
--- NOTE | 2023-02-13 08:32 | RAD REPORT ---
EXAM DESCRIPTION: CT - Abdomen Pelvis Wo Contrast - 02/13/2023 8:12 am CLINICAL HISTORY: Abdominal pain. Abdominal distention;Abd pain COMPARISON: Abdomen Pelvis W Contrast dated 01/10/2019 TECHNIQUE: CT imaging of the abdomen and pelvis was performed without contrast. Solid organ, bowel a nd vascular assessment is limited due to lack of IV and oral contrast. All CT scans are performed using dose optimization technique as appropriate and may include automated exposure control or mA/KV adjustment according to patient size. FINDINGS: The lower lung yu are clear. The liver, spleen, pancreas, adrenal glands and kidneys are within normal limits for a limited non-co ntrast examination. No bowel obstruction, free air, free fluid or abscess. The appendix is normal. The osseous structures are within normal limits. IMPRESSION: No acute intra-abdominal or pelvic findings. A limited non-contrast examination was performed as detailed.
[2023-02-13 08:44] LABS: Albumin 3.3 g/dL (3.4-5.0); Bilirubin Direct 0.2 mg/dL (0-0.2); Bilirubin Indirect, Calculated 0.7 mg/dL (0.2-0.8); Bilirubin Total 0.9 mg/dL (0.2-1.0); Magnesium 1.9 mg/dL (1.6-2.4); Potassium 4.6 mEq/L (3.5-5.1); Protein, Total 6.8 g/dL (6.4-8.2); Troponin High Sensitivity 7.1 pg/mL (<58.9)
--- NOTE | 2023-02-13 09:04 | RAD REPORT ---
EXAM DESCRIPTION: RAD - Chest Single View - 02/13/2023 8:15 am CLINICAL HISTORY: ABDOMINAL DISTENTION Chest pain. COMPARISON: Chest Single View dated 01/21/2023; Chest Single View dated 12/02/2022; Chest Single View dated 11/12/2022; Chest Pa And Lat (2 Views) dated 05/01/2022 FINDINGS: Portable technique limits examination quality. The lungs are grossly clear. The heart is normal in size. No displaced fractures. IMPRESSION: No acute intrathoracic process suspected.
--- NOTE | 2023-02-13 09:53 | ER ---
Nurse's Notes [facility] Name: Ruben Alamo Age: 47 yrs Sex: Male : 1975 Arrival Date: 02/13/2023 Time: 07:13 Bed 20 Private MD: Diagnosis: Epigastric abdominal tenderness;Functional dyspepsia;Obesity, unspecified Presentation: 02/13 07:21 Chief complaint: Patient states: abd pain that is worse with eating. Pt states "It's aa5 hard to explain but it feels like my food doesn't go all the way down and like my stomach turns". Denies nausea/vomiting/diarrhea. 07:21 Coronavirus screen: At this time, the client does not indicate any symptoms associated aa5 with coronavirus-19. Ebola Screen: Patient denies travel to an Ebola-affected area in the 21 days before illness onset. Initial Sepsis Screen: Does the patient meet any 2 criteria? No. Patient's initial sepsis screen is negative. Does the patient have a suspected source of infection? No. Patient's initial sepsis screen is negative. Risk Assessment: Do you want to hurt yourself or someone else? Patient reports no desire to harm self or others. Onset of symptoms was 2022. 07:21 Acuity: LIZBETH 3 aa5 07:21 Method Of Arrival: Ambulatory aa5 Historical: - Allergies: 07:31 Iodine; aa5 07:31 PENICILLINS; aa5 07:31 SHELLFISH; aa5 - PMHx: 07:31 Chronic pain; Hypertensive disorder; aa5 - PSHx: 07:31 facial reconstruction; Spinal surgery; aa5 - Immunization history:: Adult Immunizations unknown. - Social history:: Smoking status: Patient denies any tobacco usage or history of. - Family history:: not pertinent. Screenin:57 [facility] ED Fall Risk Assessment (Adult) History of falling in the last 3 months, ko1 including since admission No falls in past 3 months (0 pts) Confusion or Disorientation No (0 pts) Intoxicated or Sedated No (0 pts) Impaired Gait No (0 pts) Mobility Assist Device Used No (0 pt) Altered Elimination No (0 pt) Score/Fall Risk Level 0 - 2 = Low Risk Oriented to surroundings, Maintained a safe environment, Educated pt \\T\\ family on fall prevention, incl call for assistance when getting out of bed, Assessed \\T\\ reinforced patient's understanding of fall precautions, Provided non-skid footwear, Hourly rounding (assess needs \\T\\ fall precautionary measures) done, Used ambulatory aids as needed (educated on \\T\\ assisted with), Used gait belt as appropriate. Abuse screen: Denies threats or abuse. Denies injuries from another. Nutritional screening: No deficits noted. Tuberculosis screening: No symptoms or risk factors identified. Assessment: 07:57 General: Appears in no apparent distress. comfortable, Behavior is calm, cooperative, ko1 appropriate for age. Pain: Complains of pain in abdomen. Neuro: No deficits noted. Cardiovascular: No deficits noted. Respiratory: No deficits noted. GI: Bowel sounds present X 4 quads. Abd is soft X 4 quads. : No deficits noted. EENT: No deficits noted. Derm: No deficits noted. Musculoskeletal: No deficits noted. 09:00 Reassessment: patient refused IV access, refused IV medications. ko1 09:45 Reassessment: patient is requesting to be discharged home. ko1 Vital Signs: 07:21 BP 123 / 74; Pulse 54; Resp 17 S; Temp 98(O); Pulse Ox 98% on R/A; Weight 127.01 kg aa5 (R); Height 5 ft. 5 in. (R); 08:53 BP 128 / 72; Pulse 64; Resp 16; Pulse Ox 97% on R/A; ko1 07:21 Body Mass Index 46.59 (127.01 kg, 165.1 cm) aa5 ED Course: 07:16 Patient arrived in ED. am2 07:19 Mynor White MD is Attending Physician. [facility] 07:21 Arm band placed on Patient placed in an exam room, on a stretcher. aa5 07:22 Flory Gonzalez, ANAHI is Primary Nurse. ko1 07:35 Triage completed. aa5 07:35 Urinalysis w/ reflexes Sent. ko1 07:57 Patient has correct armband on for positive identification. Placed in gown. Bed in low ko1 position. Call light in reach. Side rails up X 1. Client placed on continuous cardiac and pulse oximetry monitoring. NIBP monitoring applied. case monitor on. Door closed. Noise minimized. Lights dimmed. Warm blanket given. 07:57 No provider procedures requiring assistance completed. ko1 08:08 Basic Metabolic Panel Sent. ko1 08:08 CBC with Diff Sent. ko1 08:08 LFT's Sent. ko1 08:08 Magnesium Sent. ko1 08:08 NT PRO-BNP Sent. ko1 08:08 PT-INR Sent. ko1 08:08 Troponin HS Sent. ko1 08:14 Abdomen In Process Unspecified. EDMS 08:17 XRAY Chest (1 view) In Process Unspecified. EDMS 08:57 Lipase Sent. ko1 09:53 Whit Hitchcock MD is Referral Physician. [facility] 09:56 US Abdomen Limited In Process Unspecified. EDMS 09:58 Patient did not have IV access during this emergency room visit. ko1 Administered Medications: 09:43 Not Given (no IV access, pt refused IV): Ondansetron IVP 4 mg IVP once; over 2 minutes ko1 09:43 Not Given (Patient Refused): fentaNYL (PF) IVP 50 mcg IVP once ko1 09:43 Not Given (Patient Refused): Famotidine IVP 20 mg IVP once; dilute with 10 mL 0.9% ko1 NaCl; give over 2 minutes Medication: 07:57 VIS not applicable for this client. ko1 Outcome: 09:53 Discharge ordered by . [facility] 09:58 Discharged to home ambulatory. ko1 09:58 Condition: stable 09:58 Discharge instructions given to patient, Instructed on discharge instructions, follow up and referral plans. medication usage, Demonstrated understanding of instructions, follow-up care, medications, Prescriptions given X 3. 09:59 Patient left the ED. ko1 Signatures: Dispatcher [employer] Mynor Boo MD MD cha Calderon, Audri, RN RN fabricio5 Janie Tristan Kathy, RN RN ko1
--- NOTE | 2023-02-13 09:53 | EDPHYS ---
Physician Documentation [facility] Name: Ruben Alamo Age: 47 yrs Sex: Male : 1975 Arrival Date: 02/13/2023 Time: 07:13 Bed 20 Private MD: [facility] Physician Mynor White HPI: 02/13 08:54 This 47 yrs old Black Male presents to ER via Ambulatory with complaints of Abdominal geovanny Pain. 08:54 The patient presents with abdominal pain in the upper abdomen, abdominal distention in geovanny the upper abdomen, in the lower abdomen. Onset: The symptoms/episode began/occurred 22 day(s) ago. The symptoms do not radiate. Associated signs and symptoms: Pertinent positives: nausea. The symptoms are described as crampy. Modifying factors: The symptoms are alleviated by nothing, the symptoms are aggravated by food. Severity of pain: At its worst the pain was mild moderate in the emergency department the pain is unchanged. The patient has experienced similar episodes in the past, several times. Historical: - Allergies: 07:31 Iodine; aa5 07:31 PENICILLINS; aa5 07:31 SHELLFISH; aa5 - PMHx: 07:31 Chronic pain; Hypertensive disorder; aa5 - PSHx: 07:31 facial reconstruction; Spinal surgery; aa5 - Immunization history:: Adult Immunizations unknown. - Social history:: Smoking status: Patient denies any tobacco usage or history of. - Family history:: not pertinent. ROS: 08:54 Constitutional: Negative for fever, chills, and weight loss, Eyes: Negative for injury, geovanny pain, redness, and discharge, ENT: Negative for injury, pain, and discharge, Neck: Negative for injury, pain, and swelling, Cardiovascular: Negative for chest pain, palpitations, and edema, Respiratory: Negative for shortness of breath, cough, wheezing, and pleuritic chest pain, Back: Negative for injury and pain, : Negative for injury, bleeding, discharge, and swelling, MS/Extremity: Negative for injury and deformity, Skin: Negative for injury, rash, and discoloration, Neuro: Negative for headache, weakness, numbness, tingling, and seizure, Psych: Negative for depression, anxiety, suicide ideation, homicidal ideation, and hallucinations, Allergy/Immunology: Negative for hives, rash, and allergies, Endocrine: Negative for neck swelling, polydipsia, polyuria, polyphagia, and marked weight changes, Hematologic/Lymphatic: Negative for swollen nodes, abnormal bleeding, and unusual bruising. 08:54 Abdomen/GI: Positive for abdominal pain, of the epigastric area, right upper quadrant and left upper quadrant. Exam: 08:54 Constitutional: This is a well developed, well nourished patient who is awake, alert, geovanny and in no acute distress. Head/Face: Normocephalic, atraumatic. Eyes: Pupils equal round and reactive to light, extra-ocular motions intact. Lids and lashes normal. Conjunctiva and sclera are non-icteric and not injected. Cornea within normal limits. Periorbital areas with no swelling, redness, or edema. ENT: Nares patent. No nasal discharge, no septal abnormalities noted. Tympanic membranes are normal and external auditory canals are clear. Oropharynx with no redness, swelling, or masses, exudates, or evidence of obstruction, uvula midline. Mucous membranes moist. Neck: Trachea midline, no thyromegaly or masses palpated, and no cervical lymphadenopathy. Supple, full range of motion without nuchal rigidity, or vertebral point tenderness. No Meningismus. Chest/axilla: Normal chest wall appearance and motion. Nontender with no deformity. No lesions are appreciated. Cardiovascular: Regular rate and rhythm with a normal S1 and S2. No gallops, murmurs, or rubs. Normal PMI, no JVD. No pulse deficits. Respiratory: Lungs have equal breath sounds bilaterally, clear to auscultation and percussion. No rales, rhonchi or wheezes noted. No increased work of breathing, no retractions or nasal flaring. Back: No spinal tenderness. No costovertebral tenderness. Full range of motion. Male : Normal genitalia with no discharge or lesions. Skin: Warm, dry with normal turgor. Normal color with no rashes, no lesions, and no evidence of cellulitis. MS/ Extremity: Pulses equal, no cyanosis. Neurovascular intact. Full, normal range of motion. Neuro: Awake and alert, GCS 15, oriented to person, place, time, and situation. Cranial nerves II-XII grossly intact. Motor strength 5/5 in all extremities. Sensory grossly intact. Cerebellar exam normal. Normal gait. Psych: Awake, alert, with orientation to person, place and time. Behavior, mood, and affect are within normal limits. 08:54 ECG was reviewed by the Attending Physician. 08:54 Abdomen/GI: Inspection: distension, that is mild, Bowel sounds: normal, Palpation: mild abdominal tenderness, in the epigastric area, right upper quadrant and left upper quadrant, Liver: no appreciated palpable abnormalities, Hernia: not appreciated. Vital Signs: 07:21 BP 123 / 74; Pulse 54; Resp 17 S; Temp 98(O); Pulse Ox 98% on R/A; Weight 127.01 kg aa5 (R); Height 5 ft. 5 in. (R); 08:53 BP 128 / 72; Pulse 64; Resp 16; Pulse Ox 97% on R/A; ko1 07:21 Body Mass Index 46.59 (127.01 kg, 165.1 cm) aa5 MDM: 07:19 Patient medically screened. geovanny 08:57 Differential diagnosis: bowel obstruction, cholecystitis, Cholelithiasis, geovanny diverticulitis, gastritis, non-specific abd pain, pancreatitis, Peptic Ulcer Disease, urinary tract infection. Data reviewed: vital signs, nurses notes, lab test result(s), EKG, radiologic studies, CT scan, plain films, ultrasound. Consideration of Admission/Observation Escalation of care including admission/observation considered. I considered the following discharge prescriptions or medication management in the emergency department Medications were administered in the Emergency Department. See MAR. Independent interpretation of the following test(s) in the Emergency Department EKG: See my EKG interpretation above. Test considered but Not performed: MRI: NO MRI ABD. External Records Reviewed:. Care significantly affected by the following chronic conditions: Hypertension, Obesity. Counseling: I had a detailed discussion with the patient and/or guardian regarding: the historical points, exam findings, and any diagnostic results supporting the discharge/admit diagnosis, the presence of at least one elevated blood pressure reading (>120/80) during this emergency department visit, lab results, radiology results, the need for outpatient follow up, for definitive care, a family practitioner, a car detailer. 02/13 07:21 Order name: Basic Metabolic Panel; Complete Time: 08:54 geovanny 02/13 07:21 Order name: LFT's; Complete Time: 08:54 [facility] 02/13 07:21 Order name: Magnesium; Complete Time: 08:54 [facility] 02/13 07:21 Order name: NT PRO-BNP; Complete Time: 08:54 [facility] 02/13 07:21 Order name: Troponin HS; Complete Time: 08:54 [facility] 02/13 07:21 Order name: Urinalysis w/ reflexes; Complete Time: 08:35 [facility] 02/13 08:54 Order name: Lipase; Complete Time: 09:35 [facility] 02/13 07:21 Order name: XRAY Chest (1 view); Complete Time: 09:10 [facility] 02/13 08:00 Order name: Abdomen ; Complete Time: 08:35 EDMS 02/13 08:53 Order name: US Abdomen Limited ko1 02/13 07:21 Order name: EKG; Complete Time: 07:22 [facility] 02/13 07:21 Order name: Cardiac monitoring; Complete Time: 07:35 [facility] 02/13 07:21 Order name: EKG - Nurse/Tech; Complete Time: 07:44 [facility] 02/13 07:21 Order name: IV Saline Lock; Complete Time: 07:56 [facility] 02/13 07:21 Order name: Labs collected and sent; Complete Time: 08:08 [facility] 02/13 07:21 Order name: O2 Per Protocol; Complete Time: 07:35 [facility] 02/13 07:21 Order name: O2 Sat Monitoring; Complete Time: 07:35 [facility] EC:54 Rate is 54 beats/min. Rhythm is regular. QRS [place] is Normal. CA interval is normal. QRS geovanny interval is normal. QT interval is normal. No Q waves. T waves are Normal. No ST changes noted. Clinical impression: NSR w/ Non-specific ST/T Changes and No evidence of ischemia. Interpreted by me. Reviewed by me. Administered Medications: 09:43 Not Given (no IV access, pt refused IV): Ondansetron IVP 4 mg IVP once; over 2 minutes ko1 09:43 Not Given (Patient Refused): fentaNYL (PF) IVP 50 mcg IVP once ko1 09:43 Not Given (Patient Refused): Famotidine IVP 20 mg IVP once; dilute with 10 mL 0.9% ko1 NaCl; give over 2 minutes Disposition Summary: 02/13/23 09:53 Discharge Ordered Location: Home geovanny Problem: new geovanny Symptoms: have improved geovanny Condition: Stable geovanny Diagnosis - Epigastric abdominal tenderness geovanny - Functional dyspepsia geovanny - Obesity, unspecified geovanny Followup: geovanny - With: Private Physician - When: 2 - 3 days - Reason: Recheck today's complaints, Continuance of care, Re-evaluation by your physician Followup: geovanny - With: - When: 2 - 3 days - Reason: Recheck today's complaints, Re-evaluation by your physician Discharge Instructions: - Discharge Summary Sheet geovanny - Abdominal Pain, Adult geovanny - Obesity, Adult geovanny - Obesity, Adult, [id number] [facility] Forms: - Medication Reconciliation Form [facility] - Thank You Letter [facility] - Antibiotic Education [facility] - Prescription Opioid Use [facility] - Work release form ko1 Prescriptions: - Pepcid 20 mg Oral Tablet - take 1 tablet by ORAL route every 12 hours for 21 days; 42 tablet; Refills: 0, [facility] Product Selection Permitted - Zofran 4 mg Oral Tablet - take 1 tablet by ORAL route every 12 hours As needed; 20 tablet; Refills: 0, [facility] Product Selection Permitted - dicyclomine 20 mg Oral Tablet - take 1 tablet by ORAL route 4 times per day; 28 tablet; Refills: 0, Product [facility] Selection Permitted Signatures: Dispatcher [employer] EDTori Andino Corey, MD MD cha Calderon, Audri, RN RN aa5 Flory Gonzalez RN ko1 Corrections: (The following items were deleted from the chart) 08:00 07:22 Abdomen Pelvis W [id number].[email or web address] ordered. EDMS EDMS
[2023-02-13 10:03] VITALS: TEMP 98
[2023-02-13 10:05] VITALS: BP 128/72; O2SAT 97
--- NOTE | 2023-02-13 10:09 | RAD REPORT ---
EXAM DESCRIPTION: US - Abdomen Exam Limited - 02/13/2023 9:54 am CLINICAL HISTORY: ABD PAIN COMPARISON: No comparisons FINDINGS: The gallbladder demonstrates no gallstones. No pericholecystic fluid or gallbladder wall t hickening. The common bile duct is normal measuring 4 mm. The liver demonstrates no findings of intrahepatic biliary dilatation. IMPRESSION: Unremarkable examination.
--- NOTE | 2023-02-14 04:57 | EKG ---
Test Date: 2023-02-13 Test Time: 07:38:47 Cutter Grind Tool Technician: PAULY MEASUREMENT RESULTS: Intervals: Rate: 54 MN: 212 QRSD: 102 QT: 396 QTc: 375 [place]: P: 36 MN: 212 QRS: 57 T: 40 INTERPRETIVE STATEMENTS: Sinus bradycardia with 1st degree AV block Otherwise normal ECG Compared to ECG 01/21/2023 18:24:46 First degree AV block now present Electronically Signed On 02-14-23 04:54:12 CDT by Gomez Goddard
== END 2023-02-13 09:59 | disposition home or self-care (01) ==
LOC: ER 07:13
DX: K30 Functional dyspepsia (principal); E66.9 Obesity, unspecified; Z68.42 Body mass index [BMI] 45.0-49.9, adult
CPT/HCPCS: 36415; 71045; 74176; 76705; 80048; 80076; 81001; 83690; 83735; 83880; 84484; 93005; 99284; J2405; J3010

== ENCOUNTER 2023-04-28 01:52 | Emergency (ER) | payer SELFPAY ==
--- OUTSIDE RECORDS SUMMARY | 2023-04-28 01:58 | XMS REPORT | Continuity of Care Document ---
:1975 Author Organization [facility] t Address [address] [place] [address] Care Team Providers Name Role Phone PCP, PATIENT DOES NOT HAVE A Primary Care Physician Unavailmiguel Reynolds MD, Arjun Cullen Attending Clinician [phone] ANGIE ROSAS Attending Clinician Unavailable Angie [...] rs active active ity of problems problems [facility] Allergies, Adverse Reactions, Alerts Allergy Allergy Status [...] Known DA Active [facility]05 [place] 00:[facility]: [facility] No Known DA Active U [facility]ie 3-05 [place] 00:[facility]: Region [facility] NEmily Feldman Active Info Not Enrique elkin Available 10-25 l 00:00: 00 NO KNOWN Drug Active Univers ALLERGIE Class ity of S [facility] Social History Social Habit Start Date Stop Date Quantity Comments Source Gender identity [facility] Tobacco use and 2022-06-18 2022-06-18 Smokeless [facility] exposure 00:00:00 00:00:00 tobacco non-user Hospital History of Social 2022-06-18 2022-06-[address] function 00:00:00 00:00:00 Hospital Exposure to 2022-05-20 2022-05-30 Not sure [facility] SARS-CoV-2 (event) 00:00:00 20:57:00 [facility] Sex Assigned At [birth year] [facility] 00[facility]00 [facility] Smoking Status Start Date Stop Date Source Tobacco smoking consumption unknown [facility] Never smoked tobacco [facility] Medications Ordered Filled Start Stop [...] No Take 1 Met hodi ne XR - 10-[address] (TEGretol 00:00: 04:59 (200 mg [facility] XR) 200 MG 00 :00 total) by l 12 hr mouth tablet daily for 7 days, THEN 1 tablet (200 mg total) every other day for 7 days. diclofenac 2021-2021- No 50mg Q.5D Take 1 Meth willi (VOLTAREN) - 10-03 tablet (50 st 50 MG EC 00:00: 04:59 mg total) Hos byron tablet 00 :00 by mouth 2 l (two) times a day as needed (for pain and swelling. take w/ food) for up to 7 days. diclofenac 2021-2021- No 50mg Q.5D Take 1 Meth willi (VOLTAREN) 06-18 10- tablet (50 st 50 MG EC 00:00: [...] food) for up to 7 days. diclofenac 202-0 2022- No 50mg Q.5D Take 1 Meth [...] food) for up to 7 days. lidocaine 2021-2021- No 4mL Q.[id number] Apply 4 mL Methodi HCL 06-[id number] (lidocaine) 00:00: 04:59 3D 3 (three) Hospita 2 % 00 :00 times a l solution day for 3 days. Apply to cottonball and place it by toothache lidocaine 2021- No 4mL Q.[id number] Apply 4 mL Methodi HCL 9-25 -[id number] (lidocaine) 00:00: 04:59 3D 3 (three) Hospita 2 % 00 :00 times a l solution day for 3 days. Apply to cottonball and place it by toothache lidocaine 2021-0 2022- No 4mL Q.[id number] Apply 4 mL Methodi HCL 9-25 -[id number] (lidocaine) 00:00: 04:59 3D 3 (three) Hospita 2 % 00 :00 times a l solution day for 3 days. Apply to cottonball and place it by toothache lidocaine 2021-0 2022- No 4mL Q.[id number] Apply 4 mL Methodi HCL 9-25 -[id number] (lidocaine) 00:00: 04:59 3D 3 (three) Hospita 2 % 00 :00 times a l solution day for 3 days. Apply to cottonball and place it by toothache lidocaine 2021-0 2022- No 4mL Q.[id number] Apply 4 mL Methodi HCL 9-25 -[id number] (lidocaine) 00:00: 04:59 3D 3 (three) Hospita 2 % 00 :00 times a l solution day for 3 days. Apply to cotton[place] and place it by toothache lidocaine 2021-0 2022- No 4mL Q.[id number] Apply 4 mL Methodi HCL 9-25 -[id number] (lidocaine) 00:00: 04:59 3D 3 (three) Hospita 2 % 00 :00 times a l solution day for 3 days. Apply to cotton[place] and place it by toothache lidocaine 2021-0 2022- No 4mL Q.[id number] Apply 4 mL Methodi HCL 9-25 -[id number] (lidocaine) 00:00: 04:59 3D 3 (three) Hospita 2 % 00 :00 times a l solution day for 3 days. Apply to cotton[place] and place it by toothache lidocaine 2021-0 2022- No 4mL Q.[id number] Apply 4 mL Methodi HCL 9-25 -[id number] (lidocaine) 00:00: 04:59 3D 3 (three) Hospita 2 % 00 :00 times a l solution day for 3 days. Apply to cotton[place] and place it by toothache lidocaine 2021- No 4mL Q.[id number] Apply 4 mL Methodi HCL 06-[id number] (lidocaine) 00:00: 04:59 3D 3 (three) Hospita 2 % 00 :00 times a l solution day for 3 days. Apply to cotton[place] and place it by toothache lidocaine No 4mL Q.[id number] Apply 4 mL Methodi HCL 06-[id number] (lidocaine) 00:00: 04:59 3D 3 (three) Hospita 2 % 00 :00 times a l solution day for 3 days. Apply to cotton[place] and place it by toothache butalbital- No 1{tbl} 1 tablet, Univers acetaminoph 05-31- Oral, ity of en-caff 02:30: 02:22 ONCE, 1 [place] (ESGIC) 00 :00 dose, On Medical 50-325-40 05/30/22 Bran ch mg tablet 1 at 2130, tablet CHRISTINA butalbital- Yes [id number] 1{tbl} Take 1 Univers acetaminoph - tablet [...] 30 days. LISINOPRIL 0 Yes Take by [facility] ers ORAL 8-16 mouth. ity of 21:45: [address] HYDROcodone 2021-0 Yes 1{tbl} Take 1 Un butch -acetaminop 8-16 tablet by ity of hen (NORCO) 21:45: mouth [place] 10-325 mg 20 every 6 Medical tablet (six) Branch hours as needed. LISINOPRIL Yes Take by Univ ers ORAL 8-16 mouth. ity of 21:45: [place] 20 Medical Branch HYDROcodone Yes 1{tbl} Take 1 Un butch -acetaminop 8-16 tablet by ity of hen ([facility]) 21:45: mouth [place] 10-325 mg 20 every 6 Medical tablet (six) Branch hours as needed. ketorolac 2021- No 30mg 30 mg, Unive rs (TORADOL) 04-23 Intramuscu ity of injection 21:15: 09:14 lar, ONCE, [place] 30 mg 00 :00 1 dose, On Medical [place] [facility] 04/23/22 at 1615, Routine metoclopram 2021- No 10mg 10 mg, Uni vers darren HCl 04-23 Intramuscu ity o f (REGLAN) 20:15: 20:45 [place] :[place] 1 dose, On Medi shannan 10 mg [facility] 04/23/22 at 1515, CHRISTINA Hydrocodone Yes [place] [...] 1 tablet Memoria 1-15 Irfan l 00:00: [place] 2018-0 Yes [place] 1 tablet Enrique elkin 1-15 Irfan as needed l 00:00: [place] 2018-0 Yes [place] 1 tablet Memor ia 1-15 Irfan as needed l 00:00: Meloxicam 2018-0 Yes [place] 1 tablet Memoria 1-15 Irfan l 00:00: [place] 2018-0 Yes [place] 1 tablet Enrique elkin 1-15 Irfan as needed l 00:00: [place] 2018-0 Yes [place] 1 tablet Memor ia 1-15 Irfan as needed l 00:00: Meloxicam 2018-0 Yes [place] 1 tablet Memoria 1-15 Irfan l 00:00: [place] 2018-0 Yes [place] 1 tablet Enrique elkin 1-15 Irfan as needed l 00:00: [place] 2018-0 Yes [place] 1 tablet Memor ia 1-15 Irfan as needed l 00:00: Meloxicam 2018-0 Yes [place] 1 tablet Memoria 1-15 Irfan l 00:00: [place] 2018-0 Yes [place] 1 tablet Enrique elkin 1-15 Irfan as needed l 00:00: [place] 2018-0 Yes [place] 1 tablet Memor ia 1-15 Irfan as needed l 00:00: Meloxicam 2018-0 Yes [place] 1 tablet Memoria 1-15 Irfan l 00:00: [place] 2018-0 Yes [place] 1 tablet Enrique elkin 1-15 Irfan as needed l 00:00: [place] 2018-0 Yes [place] 1 tablet Memor ia 1-15 Irfan as needed l 00:00: Meloxicam 2018-0 Yes [place] 1 tablet Memoria 1-15 Irfan l 00:00: [place] 2018-0 Yes [place] 1 tablet Enrique elkin 1-15 Irfan as needed l 00:00: [place] 2018-0 Yes [place] 1 tablet Memor ia 1-15 Irfan as needed l 00:00: Meloxicam 2018-0 Yes [place] 1 tablet Memoria 1-15 Irfan l 00:00: [place] 2018-0 Yes [place] 1 tablet Enrique elkin 1-15 Irfan as needed l 00:00: Meloxicam 2018-0 Yes [place] 1 tablet Memoria 1-15 Irfan l 00:00: [place] 2018-0 Yes [place] 1 tablet Memor ia 1-15 Irfan as needed l 00:00: [place] 2018-0 Yes [place] 1 tablet Enrique elkin 1-15 Irfan as needed l 00:00: [place] 2018-0 Yes [place] 1 tablet Memor ia 1-15 Irfan as needed l 00:00: acetaminoph Yes 1{tbl} Take 1 [...] Source Systolic blood 2022-05-31 01:59:00 128 mm[Hg] [facility] Diastolic blood 2022-05-31 01:59:00 81 mm[Hg] [facility] Heart rate 2022-05-31 01:59:00 78 /min [facility] Body temperature 2022-05-31 01:59:00 36.94 Amisha [facility] Respiratory rate 2022-05-31 01:59:00 18 /min [facility] Body height 2022-05-31 01:59:00 165.1 cm [facility] Body weight 2022-05-31 01:59:00 127.007 kg [facility] BMI 2022-05-31 01:59:00 46.59 kg/m2 [facility] Oxygen saturation in 2022-05-31 01:59:00 95 /min [facility] blood by [facility] Pulse oximetry [place] Systolic blood 2022-05-10 02:39:00 148 mm[Hg] [facility] Diastolic blood 2022-05-10 02:39:00 84 mm[Hg] Unive rsity of pressure [place] [facility] Heart rate 2022-05-10 02:39:00 70 /min [facility] [place] [facility] Body temperature 2022-05-10 02:39:00 37.56 Amisha [facility] [place] [facility] Respiratory rate 2022-05-10 02:39:00 18 /min [facility] [place] [facility] Body height 2022-05-10 02:39:00 162.6 cm [facility] [place] [facility] Body weight 2022-05-10 02:39:00 127.007 kg [facility] [place] [facility] BMI 2022-05-10 02:39:00 48.06 kg/m2 [facility] [place] [facility] Oxygen saturation in 2022-05-10 02:39:00 95 /min University of Arterial blood by [place] [employer] acquired by [employer] Pulse oximetry Branch Body weight 2022-04-23 20:11:00 133.131 kg [facility] [place] [facility] BMI 2022-04-23 20:11:00 50.38 kg/m2 [facility] [place] [facility] Systolic blood 2022-04-23 20:09:00 140 mm[Hg] Univer sity of pressure [place] [facility] Diastolic blood 2022-04-23 20:09:00 81 mm[Hg] Unive rsity of pressure [place] [facility] Heart rate 2022-04-23 20:09:00 66 /min [facility] [place] [facility] [place] Body temperature 2022-04-23 20:09:00 36.72 Amisha [facility] [place] [facility] Respiratory rate 2022-04-23 20:09:00 17 /min [facility] [place] [facility] Body height 2022-04-23 20:09:00 162.6 cm [facility] [place] [facility] Oxygen saturation in 2022-04-23 20:09:00 97 /min University of Arterial blood by [employer] shannan Pulse oximetry Branch Systolic blood 2022-06-18 15:20:24 157 mm[Hg] Method ist [facility] pressure Diastolic blood 2022-06-18 15:20:24 74 mm[Hg] Metho [facility] pressure Heart rate 2022-06-18 15:20:24 53 /min [facility] Body temperature 2022-06-18 15:20:24 36.78 Amisha [facility] Respiratory rate 2022-06-18 15:20:24 16 /min [facility] Oxygen saturation in 2022-06-18 15:20:24 97 /min [facility] Arterial blood by Pulse oximetry Body height 2022-06-18 12:48:00 162.6 cm [facility] Body weight 2022-06-18 12:48:00 127.007 kg [facility] BMI 2022-06-18 12:48:00 48.06 kg/m2 [facility] Systolic blood 2022-05-21 00:33:00 132 mm[Hg] [facility] pressure Diastolic blood 2022-05-21 00:33:00 64 mm[Hg] [facility] pressure Heart rate 2022-05-21 00:33:00 64 /min [facility] Oxygen saturation in 2022-05-21 00:33:00 98 /min [facility] Arterial blood by Pulse oximetry Body temperature 2022-05-20 23:53:12 36.17 Amisha [facility] Respiratory rate 2022-05-20 23:53:12 18 /min [facility] Body height 2022-05-20 23:52:00 162.6 cm [facility] Body weight 2022-05-20 23:52:00 127.007 kg [facility] BMI 2022-05-20 23:52:00 48.06 kg/m2 [facility] Weight 2017-10-25 15:00:[facility] 2017-10-25 15:00:00 [facility] Temperature Oral (F) 2017-10-25 15:00:00 97.8 F [facility] Heart Rate 2017-10-25 15:00:00 [facility] Diastolic (mm Hg) 2017-10-25 15:00:00 Mem orial [place] Systolic (mm Hg) 2017-10-25 15:00:00 Enrique [facility] Body Temperature 2017-10-21 12:00:00 97.5 F [facility] (LUF/[place]) Respiratory Rate 2017-10-21 12:00:00 20 /min [facility] ([facility]/[place]) O2% BldC Oximetry 2017-10-21 12:00:00 98 % [facility] (LUF/[place]) BP Systolic 2017-10-21 12:00:00 132 mm[Hg] [facility] (LUF/[place]/SA) BP Diastolic 2017-10-21 12:00:00 78 mm[Hg] [facility] (LUF/[place]/SA) Height 2017-10-21 12:00:00 64 in [facility] (F/BLANCA/SA) Weight Measured 2017-10-21 12:00:00 282.19 lbs [facility] marlyn [facility] (LUF/BLANCA/SA) BMI (Body Mass 2017-10-21 12:00:[address] [facility]) [facility] (F/BLANCA/SA) Weight 2017-10-08 15:45:00 [facility] Height 2017-10-08 15:45:00 [facility] [place] Temperature Oral (F) 2017-10-08 15:45:00 96.8 F [facility] [place] Heart Rate 2017-10-08 15:45:00 [facility] Diastolic (mm Hg) 2017-10-08 15:45:00 [facility] orial [place] Systolic (mm Hg) 2017-10-08 15:45:00 Enrique rial [place] Procedures Procedure Date / Time Performing Clinician Source Performed CT MAXILLOFACIAL WO 2022-06-18 14:48:32 Frida Patton [facility] CONTRAST CONSENT/REFUSAL FOR 2022-05-31 01:55:15 Doctor Unassigned, No [facility] [place] DIAGNOSIS AND TREATMENT Name Medical [place] CT CERVICAL SPINE WO 2022-05-21 01:24:51 Kaycee Butt [facility] CONTRAST CT HEAD WO CONTRAST 2022-05-21 01:15:40 Kaycee Butt [facility] POC GLUCOSE 2022-05-21 00:33:00 [facility] NOTICE OF PRIVACY 2022-05-10 02:37:04 Doctor Unassigned, No [facility] [place] PRACTICES Name Medical Branch CONSENT/REFUSAL FOR 2022-05-10 02:35:02 Doctor Unassigned, No Un iversity [facility] DIAGNOSIS AND TREATMENT Name Medical Branch CONSENT/REFUSAL FOR 2022-04-23 20:00:28 [facility] Name Medical Branch Plan of Care Planned Activity Planned Date Details Comments Source Future Scheduled 2023-04-27 [facility] for [facility] Test 11:13:08 malignant neoplasm of colon (procedure) [code = 505681789] Future Scheduled 2023-04-27 [facility] Test 11:13:08 malignant neoplasm of colon (procedure) [code = 906467551] Future Scheduled 2023-04-27 [facility] Test 11:13:08 malignant neoplasm of colon (procedure) [code = 251555353] Future Scheduled 2023-04-27 [facility] 11:13:08 (procedure) [code = 411935153] Future Scheduled 2023-04-27 COVID-19 VACCINE (3 - [facility] Test 11:13:08 Pfizer series) [code = COVID-19 VACCINE (3 - Pfizer series)] Future Scheduled 2023-04-27 [facility] for [facility] Test 11:13:08 malignant neoplasm of colon (procedure) [code = 675791515] Future Scheduled 2023-04-27 [facility] Test 11:13:08 malignant neoplasm of colon (procedure) [code = 781286307] Future Scheduled 2023-04-27 INFLUENZA VACCINE [facility] Test 11:13:08 [code = INFLUENZA VACCINE] Future Scheduled 2023-01-09 [facility] C screening [facility] Test 02:12:34 (procedure) [code = 830334015] Future Scheduled 2023-01-09 COVID-19 VACCINE (3 - [facility] Test 02:12:34 Booster for Pfizer series) [code = COVID-19 VACCINE (3 - Booster for Pfizer series)] Future Scheduled 2023-01-09 [facility] 02:12:34 [code = COLONOSCOPY SCREENING] Future Scheduled 2023-01-09 INFLUENZA VACCINE [facility] Test 02:12:34 [code = INFLUENZA VACCINE] Future Scheduled 2023-01-09 Hepatitis C screening [facility] Test 02:12:34 (procedure) [code = 979592612] Future Scheduled 2023-01-09 COVID-19 VACCINE (3 - [facility] Test 02:12:34 Booster for Pfizer series) [code = COVID-19 VACCINE (3 - Booster for Pfizer series)] Future Scheduled 2023-01-09 [facility]ENING [facility] Test 02:12:34 [code = COLONOSCOPY SCREENING] Future Scheduled 2023-01-09 INFLUENZA VACCINE [facility] Test 02:12:34 [code = INFLUENZA VACCINE] Future Scheduled 2022-09-08 [facility] Test 15:04:49 (procedure) [code = 985051435] Future Scheduled 2022-09-08 COVID-19 VACCINE (3 - [facility] Test 15:04:49 Booster for Pfizer series) [code = COVID-19 VACCINE (3 - Booster for Pfizer series)] Future Scheduled 2022-09-08 INFLUENZA VACCINE [facility] Test 15:04:49 [code = INFLUENZA VACCINE] Future Scheduled 2022-09-08 [facility] Test 15:04:49 (procedure) [code = 326137615] Future Scheduled 2022-09-08 COVID-19 VACCINE (3 - [facility] Test 15:04:49 Booster for Pfizer series) [code = COVID-19 VACCINE (3 - Booster for Pfizer series)] Future Scheduled 2022-09-08 INFLUENZA VACCINE [facility] Test 15:04:49 [code = INFLUENZA VACCINE] Future Scheduled 2022-09-08 [facility] Test 15:04:49 (procedure) [code = 672268279] Future Scheduled 2022-09-08 COVID-19 VACCINE (3 - [facility] Test 15:04:49 Booster for Pfizer series) [code = COVID-19 VACCINE (3 - Booster for Pfizer series)] Future Scheduled 2022-09-08 INFLUENZA VACCINE [facility] Test 15:04:49 [code = INFLUENZA VACCINE] Future Scheduled 2022-09-08 [facility] Test 15:04:49 (procedure) [code = 265763665] Future Scheduled 2022-09-08 COVID-19 VACCINE (3 - [facility] Test 15:04:49 Booster for Pfizer series) [code = COVID-19 VACCINE (3 - Booster for Pfizer series)] Future Scheduled 2022-09-08 INFLUENZA VACCINE Method [facility] Hospital Test 15:04:49 [code = INFLUENZA VACCINE] Future Scheduled 2022-06-18 HEPATITIS B VACCINES Met [facility] Test 09:25:33 (1 of 3 - 3-dose series) [code = HEPATITIS B VACCINES (1 of 3 - 3-dose series)] Future Scheduled 2022-06-18 Hepatitis C screening [facility] Test 09:25:33 (procedure) [code = 214997059] Future Scheduled 2022-06-18 COVID-19 VACCINE (3 - [facility] Test 09:25:33 Booster for Pfizer series) [code = COVID-19 VACCINE (3 - Booster for Pfizer series)] Future Scheduled 2022-06-18 INFLUENZA VACCINE Method [facility] Test 09:25:33 [code = INFLUENZA VACCINE] Future Scheduled 2022-06-18 HEPATITIS B VACCINES Met [facility] [place] [place] Test 09:25:33 (1 of 3 - 3-dose series) [code = HEPATITIS B VACCINES (1 of 3 - 3-dose series)] Future Scheduled 2022-06-18 Hepatitis C screening [facility] Test 09:25:33 (procedure) [code = 394053938] Future Scheduled 2022-06-18 COVID-19 VACCINE (3 - [facility] Test 09:25:33 Booster for Pfizer series) [code = COVID-19 VACCINE (3 - Booster for Pfizer series)] Future Scheduled 2022-06-18 INFLUENZA VACCINE Method [facility] Test 09:25:33 [code = INFLUENZA VACCINE] Future Scheduled 2022-06-18 HEPATITIS B VACCINES Met [facility] [place] [place] Test 09:25:33 (1 of 3 - 3-dose series) [code = HEPATITIS B VACCINES (1 of 3 - 3-dose series)] Future Scheduled 2022-06-18 Hepatitis C screening [facility] Test 09:25:33 (procedure) [code = 961619846] Future Scheduled 2022-06-18 COVID-19 VACCINE (3 - [facility] Test 09:25:33 Booster for Pfizer series) [code = COVID-19 VACCINE (3 - Booster for Pfizer series)] Future Scheduled 2022-06-18 INFLUENZA VACCINE Method [facility] Test 09:25:33 [code = INFLUENZA VACCINE] Future Scheduled 2022-06-09 HEPATITIS B VACCINES Met [facility] Test 18:36:38 (1 of 3 - 3-dose series) [code = HEPATITIS B VACCINES (1 of 3 - 3-dose series)] Future Scheduled 2022-06-09 Hepatitis C screening [facility] Test 18:36:38 (procedure) [code = 933105190] Future Scheduled 2022-06-09 COVID-19 VACCINE (3 - Me [facility] Test 18:36:38 Booster for Pfizer series) [code = COVID-19 VACCINE (3 - Booster for Pfizer series)] Future Scheduled 2022-06-09 INFLUENZA VACCINE Method [facility] Test 18:36:38 [code = INFLUENZA VACCINE] Future Scheduled 2022-05-25 HEPATITIS B VACCINES Met [facility] [place] [place] Test 07:52:22 (1 of 3 - 3-dose series) [code = HEPATITIS B VACCINES (1 of 3 - 3-dose series)] Future Scheduled 2022-05-25 Hepatitis C screening [facility] Test 07:52:22 (procedure) [code = 535110972] Future Scheduled 2022-05-25 COVID-19 VACCINE (3 - [facility] Test 07:52:22 Booster for Pfizer series) [code = COVID-19 VACCINE (3 - Booster for Pfizer series)] Future Scheduled 2022-05-25 INFLUENZA VACCINE Method [facility] Hospital Test 07:52:22 [code = INFLUENZA VACCINE] Future Scheduled 2022-05-25 HEPATITIS B VACCINES Met [facility] [place] [place] Test 07:52:22 (1 of 3 - 3-dose series) [code = HEPATITIS B VACCINES (1 of 3 - 3-dose series)] Future Scheduled 2022-05-25 Hepatitis C screening [facility] Test 07:52:22 (procedure) [code = 734349593] Future Scheduled 2022-05-25 COVID-19 VACCINE (3 - [facility] Test 07:52:22 Booster for Pfizer series) [code = COVID-19 VACCINE (3 - Booster for Pfizer series)] Future Scheduled 2022-05-25 INFLUENZA VACCINE Method [facility] Test 07:52:22 [code = INFLUENZA VACCINE] Encounters Start End Encounter Admission Attending Care Care Encounter Source Date/Time Date/Time Type Type Clinicians Facility Department ID 2023-04-28 Outpatient [id number] Memoria 01:56:12 [id number] -[id number] [place] [id number] 2023-02-13 Outpatient [id number] Memoria 07:15:33 [id number] [id number] A l -UL6O-3CZ [id number]-[id number] [facility] [id number] F4B [id number] 2023-01-21 Outpatient [id number] Memoria 18:12:35 [id number] EC8-41B6- 8 l -84FA-CDD [id number]-[id number] [id number] [facility] [id number] [id number] 2022-12-02 Outpatient [id number] Memoria 21:50:02 [id number] [id number]-[id number] 8 l -8693-8E8 [id number] [facility] [id number] [id number] 2022-11-12 Outpatient [id number] Memoria 01:29:42 [id number] DA0-43F6- A l -D077-45U [id number] [facility] [id number] C1D [id number] 2022-10-16 Outpatient [id number] Memoria 06:48:40 [id number] [id number] 8 l -3T6C-81I [id number]-[id number] [id number]-76V7HH [facility] [id number] [id number] 2022-09-25 Outpatient [id number] Memoria 18:40:25 [id number] 4F0-9C04- 8 l -89BD-1A5 [id number] 9BD-1A5DCD [facility]avo [id number] 6A3 [id number] 2022-07-11 Outpatient [id number] [facility] 20:33:16 [id number] F4-47BE-[id number] 2G1-52OK- 8 l -1F9U-71X [id number]-[id number]-97ZOXX [facility] [id number] FAD [id number] 2022-07-05 Outpatient [id number] [facility] 21:55:55 [id number] [id number]- A l -D95B-3Q0 [id number] [id number] [facility] [id number] F6F BA1F6F 2022-06-20 Outpatient [id number] [id number]-B [facility] 20:55:03 [id number]-[id number] [id number]- 9 l -3H05-Q43 [id number] [place] [id number] 7B9 [id number] 2022-06-18 Outpatient [id number]- [id number] 4A16 41FC-3 Memoria 07:44:31 8P62-3XBG 17-4EED-9D8 Z65-3ACI- 9 l -9O24-H9S 1-G6QE148O6 Y02-K2JF88 Tavo I563Z4H59 A09 2A0A09 2022-06-14 Outpatient [id number]- [id number]-T5 4F66 73A9-D Memoria 22:44:21 O42F-3F98 0A-7F56-277 90A-4A19- 9 l -9064-22B 4-18S116K9J 064-41K461 Tavo 590D3P423 120 T0E116 2022-06-08 Outpatient Q6258RQ3- U8471LP2-Y4 F051 4BD7-F Memoria 21:22:44 W96S-2VF4 4B-4WM4-776 44B-4BC4- 8 l -819B-E8C B-G5B53691S 19B-B4Y387 Tavo 74797RT90 C63 53AC63 2022-06-03 Outpatient QYBL34J2- BXKG79X1-75 ABCB 93A3-4 Memoria 01:33:52 4565-43DE 65-43DE-92E 565-43DE- 9 l -63J5-598 7-020SF70PJ 2M8-983LM8 Tavo ME27CW564 217 3IH097 2022-05-30 Outpatient [id number]- 215XY584-9H 114E F493-4 Memoria 20:55:52 6Y51-663F 39-438E-9B8 A99-416V- 9 l -9U29-5PK 0-8RER6T7UY Q06-9ZUP2Y [place] Q6J6RLZ01 F41 4BEF41 2022-05-20 Outpatient 0Q82R04K- 4H08J70G-1Q 5C46 A21D-1 Memoria 18:55:15 1FAA-4CF3 AA-8NR7-23C FAA-4CF3- 8 l -80ED-A77 D-L33H49696 0ED-A77A25 [place] [id number] 664 238482 6128-09-27 Outpatient [id number] 5C72 5329-4 Memoria 14:21:52 64W1-6VJC F0-4CEA-948 8D3-4VIR- 9 l -9486-B77 6-Q91IQE7Q4 486-B77BBD [place] GDX8B33C8 4C4 1C14C4 2021-06-20 Outpatient 402QVC82- 879GFU29-67 596A BE16-8 Memoria 14:21:45 8434-49AE 34-49AE-95B 434-49AE- 9 l -95BD-57D D-78DA30R1I 5BD-57DA06 [place] H39S2Q070 032 L4L755 2021-05-30 Outpatient [id number] CE68 9471-D Memoria 15:44:20 DAF5-4596 F5-4596-BFE AF5-4596- B l -BFE1-51A 1-38ISG77LH FE1-51ACA1 Tavo WD72FG9TD 1BA 9CA1BA 2020-01-20 Inpatient [facility] [id number] [facility] 15:25:00 21 [facility] 2019-12-16 Inpatient [facility] [id number] [facility] 17:49:00 32 [facility] 2019-12-12 Inpatient [facility] [id number] [facility] 08:32:00 83 [facility] 2019-11-27 Inpatient [facility] [id number] [facility] 07:33:00 06 [facility] 2022-06-18 2022-06-18 Emergency Rodolfo, 1.2.840.1 [id number] 2100 [id number] Methodi 07:52:00 10:32:[address] [facility] 3.430.2.7 [facility] .3.332006 l .8 2022-06-18 2022-06-18 Emergency Rodolfo, 1.2.840.1 [id number] 2100 [id number] Methodi 07:52:00 10:32:[address] Subhash 3.430.2.7 [facility] .3.222454 l .8 2022-05-30 2022-05-30 Emergency X [facility] [id number] [facility] 21:02:00 21:53:00 ANGIE ibrahim of [facility] 2022-05-30 2022-05-30 [facility] 1.2.488.959 3945 2067 Univers 21:02:00 21:53:00 Angie RUSSO 350.1.13.10 i dora [facility] 4.2.7.2.686 [facility] [id number] [place] [address] [address] 2022-05-20 2022-05-20 Emergency Bárbara 1.2.840.1 [id number] Methodi 19:29:00 21:04:[address] 3.430.2.7 Hospit a .3.451155 l .8 2022-05-20 2022-05-20 Emergency Bárbara 1.2.840.1 [id number] Methodi 19:29:00 21:04:[address] 3.430.2.7 Hospit a .3.163738 l .8 2022-05-20 2022-05-20 Travel 1.2.840.1 1.2.161.387 7401 147692 Methodi 00:00:00 00:00:[address] 3.430.2.7 0.2.7.3.698 Ho spita .3.528280 084.8 l .8 2022-05-20 2022-05-20 Travel 1.2.840.1 1.2.333.703 7586 916032 Methodi 00:00:00 00:00:[address] 3.430.2.7 0.2.7.3.698 Ho spita .3.391550 084.8 l .8 2022-05-09 2022-05-09 Emergency X JESSY, [facility] ERT [id number] Univers 21:45:00 21:46:00 CHER ibrahim [facility] 2022-05-09 2022-05-09 [facility] 1.2.840.114 95 [id number] Univers 21:45:00 21:46:00 Cher RUSSO 350.1.13.10 patrice [facility] 4.2.7.2.686 [facility] [id number] [address] 2022-04-23 2022-04-23 Emergency X KAREN, [facility] ERT [id number] Univers 15:11:00 15:52:00 BO fu [facility] 2022-04-23 2022-04-23 Emergency [place], [facility] 1.2.934.053 5685 2241 Univers 15:11:00 15:52:00 Bo RUSSO 350.1.13.10 banner [facility] 4.2.7.2.686 [facility] [id number] Medi shannan [address] 2021-09-14 2021-09-14 Outpatient SHAKA DENSON [facility] [address] 02:13:00 02:[place] [address] [facility] 2021-09-08 2021-09-08 Outpatient SHAKA DENSON [facility] [address] 02:19:00 02:19[place] [address] [facility] 2017-11-01 2017-11-01 Outpatient Family Family 188053 eClinic 10:47:00 10:47:00 [facility] 2017-10-25 2017-10-25 Outpatient Family Family [id number] eClinic 09:00:00 09:00:00 [facility] 2017-10-21 2017-10-21 PAIN IN NIKKI [facility] [id number] [facility] 11:51:00 14:48:00 [facility], [address], (LUF/[place] [address] 2017-10-21 2017-10-21 PAIN IN NIKKI [facility] [id number] 11:51:00 14:48:00 [facility] 2017-10-08 2017-10-08 Outpatient Family Family [id number] eClinic 09:45:00 09:45:00 [facility] Clinic Results Test Description Test Time Test Comments Results Result Comments Source POC glucose 2022-05-21 00:34:00 Test Item Value Reference Range Interpretation Comme nts POC glucose (test code = 74670-9) 217 mg/dL 65-100 H Glue Maker Bone Name: Zach Varela ID: [id number] Lab Interpretation (test code = Abnormal 97564-1) [facility] [id number] 00:34:00 Test Item Value Reference Range Interpretation Comments POC glucose (test code = 217 mg/dL 65-100 H Ope rator Name: Zach 29128-6) BinosDevice ID: [id number] Lab Interpretation (test Abnormal code = 76132-7) [facility] [id number] 00:34:00 Test Item Value Reference Range Interpretation Comments POC glucose (test code = 217 mg/dL 65-100 H Ope rator Name: Zach Johnston) BinosDevice ID: [id number] Lab Interpretation (test Abnormal code = 69260-4) [facility]2022-08-28 00:34:00 Test Item Value Reference Range Interpretation Comments POC glucose (test code = 217 mg/dL 65-100 H Ope rator Name: Zach Johnston) BinosDevice ID: [id number] Lab Interpretation (test Abnormal code = 61562-0) [facility]2022-08-28 00:34:00 Test Item Value Reference Range Interpretation Comments POC glucose (test code = 217 mg/dL 65-100 H Ope rator Name: Zach Johnston) BinosDevice ID: [id number] Lab Interpretation (test Abnormal code = 89415-7) [facility]2022-08-28 00:34:00 Test Item Value Reference Range Interpretation Comments POC glucose (test code = 217 mg/dL 65-100 H Ope rator Name: Zach Johnston) BinosDevice ID: [id number] Lab Interpretation (test Abnormal code = 59552-2) [facility]2022-08-28 00:34:00 Test Item Value Reference Range Interpretation Comments POC glucose (test code = 217 mg/dL 65-100 H Ope rator Name: Zach Johnston) BinosDevice ID: [id number] Lab Interpretation (test Abnormal code = 94481-2) [facility]2022-08-28 00:34:00 Test Item Value Reference Range Interpretation Comments POC glucose (test code = 217 mg/dL 65-100 H Ope rator Name: Zach Lieberman7) BinosDevice ID: [id number] Lab Interpretation (test Abnormal code = 14337-6) [facility]2022-08-28 00:34:00 Test Item Value Reference Range Interpretation Comments POC glucose (test code = 217 mg/dL 65-100 H Ope rator Name: Zach Johnston) BinosDevice ID: [id number] Lab Interpretation (test Abnormal code = 88246-1) [facility] [id number] 00:34:00 Test Item Value Reference Range Interpretation Comments POC glucose (test code = 217 mg/dL 65-100 H Ope rator Name: Zach Johnston) BinosDevice ID: [id number] Lab Interpretation (test Abnormal code = 47310-4) [facility] [id number] 00:34:00 Test Item Value Reference Range Interpretation Comments POC glucose (test code = 217 mg/dL 65-100 H Ope rator Name: Zach Johnston) BinosDevice ID: [id number] Lab Interpretation (test Abnormal code = 82638-1) [facility]2022-08-28 00:34:00 Test Item Value Reference Range Interpretation Comments POC glucose (test code = 217 mg/dL 65-100 H Ope rator Name: Zach Johnston) BinosDevice ID: [id number] Lab Interpretation (test Abnormal code = 47585-4) [facility]2022-08-28 00:34:00 Test Item Value Reference Range Interpretation Comments POC glucose (test code = 217 mg/dL 65-100 H Ope rator Name: Zach Johnston) BinosDevice ID: [id number] Lab Interpretation (test Abnormal code = 33057-5) [facility]- [facility] HEAD/BRAIN W/O [id number] 18:19:00 Patient Name: VIMAL BARROSO Unit No: [id number] EXAMS: CPT CODE: [id number] CT HEAD/BRAIN W/O CONT 18065 CLINICAL INFORMATION: Moderate frontal headaches. Coughing. Dictation [...] 12/16/2019 (1818) KirtAGV LORETA Lopez NAME: LEANNA BARROSO[address] PHYS: KELLY Vargas Germania Engel SERVICE DEVELOPER [place] [address] : 1975 AGE: 44 SEX: M LOC: NohemyERS PHONE #: [phone] EXAM DATE: 12/16/2019 STATUS: PREER FAX #: [phone] RAD #: D/C DT PAGE 1 Signed Report Patient Name: VIMAL BARROSO Unit No: [id number] EXAMS: CPT CODE: [id number] CT HEAD/BRAIN W/O CONT 40747 (Continued) Orig Print D/T: S: 12/16/2019 (1821) LORETA Lopez NAME: VIMAL BARROSO [address] [place] [address] PHYS: KELLY Vargas ToroGermania JENARO [place] [address] : 1975 AGE: 44 SEX: M LOC: [facility] PHONE #: [phone] EXAM DATE: 12/16/2019 STATUS: PRE ER FAX #: [phone] RAD #: D/C DT PAGE 2 Signed Report- XR CHEST 2 [id number] 09:11:00 FAX: Germania Engel NP [phone] [place]: E St: REG Patient Name: VIMAL BARROSO Unit No: [id number] EXAMS: CPT CODE: [id number] XR CHEST 2 V 99419 - XR CHEST 2 V LOCATION: T18 [...] By: Joanna Orig Print D/T: S:12/12/2019 (913) LORETA Lopez NAME: VIMAL BARROSO [address] [place] [address] PHYS: [place] [address] : 1975 AGE: 44 SEX: M LOC: EMILY PHONE #: [phone] EXAM DATE: 12/12/2019 STATUS: REG ER FAX #: [phone] RAD NO: DC Dt: PAGE 1 Signed ReportSPINE LUMBAR SACR 2017-04-08 13:37:[address] [address]BBCGZRAOUW IMAGING REPORTPatient Name: Gustavo BARROSOte of Service: [id number]: 41 Sex: M Order #: [id number] [facility] 1975 X-[facility] Number: [id number] Record Number: [id number] Hospital Number: [id number] Physician: Agatha CROW Physician: RUBY TREVIÑO LUMBAR [...] 13:34:45 Notes Date/Time Note Provider Source 2020-01-20 [facility] 15:31:00-00:00 [facility] ([facility]) EMERGENCY PROVIDER REPORT REPORT#:[id number] REPORT STATUS: Signed DATE:01/20/20 TIME: 1530 PATIENT: VIMAL BARROSO UNIT #: [id number] ROOM/BED: AGE: 44 SEX: M PCP PHYS: No Primary or Family Ph ysician SERVICE AUTHOR: Jadiel Young DO * ALL edits or amendments must be made on the Content Savvy/computer document * HPI-Headache General Initial Greet Date/Time [...] 01/19 1526 O2 Delivery Room air 01/19 152 Temp 98.2 01/19 1526 Pulse 71 01/19 1526 Resp 16 01/19 152 Last Documented: Result Date Time Pulse Ox [...] symptoms should prompt an immediate return to [facility] or the closest emergency department or a call to 1. at 1542 [facility] #:[id number] END OF REPORT 2019-12-16 [facility] 17:52:00-00:00 [facility] ([facility]) EMERGENCY PROVIDER REPORT REPORT#:[id number] REPORT STATUS: Signed DATE:12/16/19 TIME: 1751 PATIENT: VIMAL BARROSO UNIT #: [id number] ROOM/BED: AGE: 44 SEX: M PCP PHYS: No Primary or Family Ph ysician SERVICE AUTHOR: Germania Engel NP * ALL edits or amendments must be made on the Content Savvy/computer document * HPI-Headache General Confirmed Patient Yes Patient Type New patient Initial Greet Date/Time 12/16/191750 PCP none Presentation Chief Complaint Headache Hx [...] 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....pt denies weakness, chills, vision [...] 12/15 1750 O2 Delivery Room air 12/15 1750 Temp 99.4 12/15 1749 Pulse 91 12/15 [...] By: NancyV - Deepak Tee MD Re-Evaluation MDM )( [...] 154/111 12/15 175 B/P Mean 125 12/15 175 O2 Delivery Room air 12/15 175 Temp 99.4 12/15 175 Pulse 91 12/15 175 Resp 20 12/15 175 Last Documented: Result Date Time Pulse Ox 97 12/15 1904 B/P 150/104 12/15 190 B/P Mean 119 12/15 1904 O2 Delivery [...] symptoms should prompt an immediate return to [facility] or the closest emergency department or [...] Germania Engel NP on at 0007 RPT #:[id number] END OF REPORT 2019-12-16 [facility] 17:52:00-00:00 [facility] ([facility]) EMERGENCY PROVIDER REPORT REPORT#:[id number] REPORT STATUS: Signed DATE:12/16/19 TIME: 1751 PATIENT: VIMAL BARROSO UNIT #: [id number] ROOM/BED: AGE: 44 SEX: M PCP PHYS: No Primary or Family Ph ysician SERVICE AUTHOR: Germania Engel SERVICE DEVELOPER * ALL edits or amendments must be made on the Content Savvy/computer document * Germania Engel N. 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 )( Re-Evaluation/Progress #1 Text/Dict Note On [...] Admin Acetaminophen 1,000 MG X1ED STA 12/15 1756 DC 0 12/15 PO 12/15 175 175 [...] 150/104 12/15 1904 B/P Mean 119 12/15 190 O2 Delivery Room air 12/15 190 Temp [...] symptoms should prompt an immediate return to [facility] or the closest emergency department or [...] 0030: HPI-Headache General Initial Greet Date/Time 12/16/19 1431 Re-Evaluation MDM Free Text MDM Notes Free [...] were reviewe d. I agree with this PA/regulatory consultant findings, exam and plan. Electronically Signed by Germania Engel NP on at 0007 at 0030 RPT #:[id number] END OF REPORT 2019-12-12 [facility] 08:43:00-00:00 [facility] ([facility]) EMERGENCY PROVIDER REPORT REPORT#:[id number] REPORT STATUS: Signed DATE:12/12/19 TIME: 0843 PATIENT: VIMAL BARROSO UNIT #: [id number] ROOM/BED: AGE: 44 SEX: M PCP PHYS: No Primary or Family Ph ysician SERVICE AUTHOR: Germania Engel NP * ALL edits or amendments must be made on the Content Savvy/computer document * HPI-URI/Cough/Cold General Confirmed Patient Yes [...] plant in the area and is from [facility]. Patient reports he is been experiencing cough [...] Complaint COUGHING AND NASAL DRAINAGE 1 W ROBINSON Allergies Coded Allergies: No Known Allergies (11/27/19) Physical Exam Vital Signs Vital Signs First Documented: Result Date Time Pulse Ox 98 12/11 0833 B/P 147/36 12/11 0833 B/P Mean 73 12/11 0833 Temp 98.6 12/11 0833 Pulse 71 12/11 0833 Resp 18 12/11 0833 Last Documented: Result Date Time Pulse Ox [...] present, Erythema present, Warmth present, R c fdc > L calf, L calf > R [...] RADIOLOGY - XR CHEST 2 V 12/11 0852 Report Impression - Status: SIGNED Entered: 12/12/201914 IMPRESSION: No active disease. Impression By: Joanna - Barron Jules Patient Discharge Departure Vital Signs/Condition Vital Signs First Documented: Result Date Time Pulse Ox 98 03/20 0833 B/P 147/36 12/11 832 B/P Mean 73 12/11 832 Temp 98.6 12/11 832 Pulse 71 12/11 832 Resp 18 12/11 832 Last Documented: Result Date Time Pulse Ox [...] symptoms should prompt an immediate return to [facility] or the closest emergency department or [...] Germania Engel NP on at 0937 RPT #:[id number] END OF REPORT 2019-12-12 [facility] 08:43:00-00:00 [facility] ([facility]) EMERGENCY PROVIDER REPORT REPORT#:[id number] REPORT STATUS: Signed DATE:12/12/19 TIME: 08 PATIENT: VIMAL BARROSO UNIT #: [id number] ROOM/BED: AGE: 44 SEX: M PCP PHYS: No Primary or Family Ph ysician SERVICE AUTHOR: Germania Engel SERVICE DEVELOPER * ALL edits or amendments must be made on the Content Savvy/computer document * Germania Engel N. 12/12/19 0843: [...] plant in the area and is from [facility]. Patient reports he is been experiencing cough [...] Complaint COUGHING AND NASAL DRAINAGE 1 W ROBINSON Allergies Coded Allergies: No Known Allergies (11/27/19) Physical Exam Vital Signs Vital Signs First Documented: Result Date Time Pulse Ox 98 12/11 0833 B/P 147/36 12/11 832 B/P Mean 73 12/11 08 Temp 98.6 12/11 0833 Pulse 71 12/11 08 Resp 18 12/11 0833 O2 Delivery Room air 12/12 931 Last Documented: Result Date Time Pulse Ox 96 12/11 0932 B/P 131/86 12/11 0832 B/P Mean 101 12/11 0932 O2 Delivery Room air 12/12 931 Temp 98.0 12/11 0832 Pulse 62 12/11 0932 Resp 16 12/11 0832 Review of Vital Signs Reviewed Focused PE [...] present, Erythema present, Warmth present, R c fdc > L calf, L calf > R calf, Rupert's sign positive , Deformity proximal, Deform ity middle, Deformity distal, Open fracture present, Pulses distal absent, Pulses distal decreased, N euro deficit present. Left Leg/Calf Negative: Swelling present, Tenderness present, Ecchymosis present, Erythema present, Warmth present, R c fdc > L calf, L calf > R calf, Rupert's sign positive , Deformity proximal, Deform ity middle, Deformity distal, Open fracture present, Pulses distal absent, Pulses distal decreased, N euro deficit present. Psychiatric Psychiatric Affect NL, Mood NL, Not suicidal, N ot homicidal, Thought content NL Interpretation Diagnostics Lab Results Interpretation Results Recent Impressions: RADIOLOGY - XR CHEST 2 V 12/11 0875 Report Impression - Status: SIGNED Entered: 12/12/201914 [...] symptoms should prompt an immediate return to [facility] or the closest emergency department or [...] Saw Pt Alone I have reviewed the PA/SERVICE DEVELOPER's note and plan of car e. I was available for consultation as needed at al l times during the patient's visit in the emergency department. I did not hear about this patient du ring the visit. Electronically Signed by Germania Engel SERVICE DEVELOPER on at 0937 RPT #:[id number] END OF REPORT 2019-12-12 [facility] 08:43:00-00:00 [facility] ([facility]) EMERGENCY PROVIDER REPORT REPORT#:[id number] REPORT STATUS: Signed DATE:12/12/19 TIME: 08 PATIENT: VIMAL BARROSO UNIT #: [id number] ROOM/BED: AGE: 44 SEX: M PCP PHYS: No Primary or Family Ph ysician SERVICE AUTHOR: Germania Engel SERVICE DEVELOPER * ALL edits or amendments must be made on the Content Savvy/computer document * Germania Engel N. 12/12/19 0843: [...] plant in the area and is from [facility]. Patient reports he is been experiencing cough [...] Complaint COUGHING AND NASAL DRAINAGE 1 W ROBINSON Allergies Coded Allergies: No Known Allergies (11/27/19) Physical Exam Vital Signs Vital Signs First Documented: Result Date Time Pulse Ox 98 12/11 08 B/P 147/36 12/11 832 B/P Mean 73 12/11 0833 Temp 98.6 12/11 832 Pulse 71 12/11 [...] lower extremity edema Abdomen/GI Abdomen/GI Atraumatic, Soft, Non-tende r, McBurney's non-tender, No guarding, No rebound, BS normoactive, [...] present, Erythema present, Warmth present, R c fdc > L calf, L calf > R calf, Rupert's sign positive , Deformity proximal, Deform ity middle, Deformity distal, Open fracture present, Pulses distal absent, Pulses distal decreased, N euro deficit present. Left Leg/Calf Negative: Swelling present, Tenderness present, Ecchymosis present, Erythema present, Warmth present, R c fdc > L calf, L calf > R [...] 12/12/2019913 IMPRESSION: No active disease. Impression By: Barron Morse Patient Discharge Departure Vital Signs/Condition Vital Signs [...] )( Discharged to Home Yes )( Time 0923 )( Date 12/12/19 Discharge/Care Plan Counseled Regarding [...] physician or other designated or consulting [facility] as outlined in the discharge instructions. The [...] symptoms should prompt an immediate return to [facility] or the closest emergency department or [...] Saw Pt Alone I have reviewed the PA/SERVICE DEVELOPER's note and plan of car e. I was available for consultation as needed at al l times during the patient's visit in the emergency department. I did not hear about this patient du ring the visit. Electronically Signed by Germania Engel NP on at 0937 Electronically Signed by Diya Hernandez MD on at 1017 RPT #:[id number] END OF REPORT 2019-11-27 [facility] 07:48:00-00:00 [facility] ([facility]) EMERGENCY PROVIDER REPORT REPORT#:[id number] REPORT STATUS: Signed DATE:11/27/19 TIME: 0748 PATIENT: VIMAL BARROSO UNIT #: [id number] ROOM/BED: AGE: 43 SEX: M PCP PHYS: No Primary or Family Ph ysician SERVICE AUTHOR: Gollner,Tamara E P A * ALL edits or amendments must be made on the Content Savvy/computer document * HPI-URI/Cough/Cold General Confirmed Patient Yes [...] 131/70 11/26 740 B/P Mean 90 11/26 0641 O2 Delivery Room air 11/26 740 Temp 98.7 11/26 740 Pulse 66 11/26 0641 Resp 18 11/26 0641 All vital signs [...] symptoms should prompt an immediate return to [facility] or the closest emergency department or a call to 1. at 0850 RPT #:[id number] END OF REPORT 2019-11-27 [facility]00 [facility] ([facility]) EMERGENCY PROVIDER REPORT REPORT#:[id number] REPORT STATUS: Signed DATE:11/27/19 TIME: 747 PATIENT: VIMAL BARROSO UNIT #: [id number] ROOM/BED: AGE: 43 SEX: M PCP PHYS: No Primary or Family Ph ysician SERVICE AUTHOR: Tamara Bishop * ALL edits or amendments must be made on the Content Savvy/computer document * Tamara Bishop 11/27/19 0748: HPI-URI/Cough/Cold [...] Ox 100 11/26 0636 B/P 144/74 11/26 0736 B/P Mean 97 11/26 0736 O2 Delivery Room air 11/26 0636 Temp 98.9 11/26 0736 Pulse 66 11/26 0736 Resp 18 11/26 0636 Last Documented: Result Date Time Pulse Ox 96 11/26 0903 B/P 133/72 / 0903 B/P Mean 92 11/26 0903 O2 Delivery Room air / 0903 Pulse 62 / 0903 Resp 17 11/26 0903 Temp 98.7 11/26 0741 Review of Vital Signs Reviewed Focused [...] symptoms should prompt an immediate return to [facility] or the closest emergency department or a call to 911. Papa Griffin 11/27/19 1411: HPI-URI/Cough/Cold General Initial Greet Date/Time 11/27/19 0738 Patient Discharge Departure Supervising Physician Note MidLv Saw Pt Alone I have reviewed the PA/SERVICE DEVELOPER's note and plan of car e. I was available for consultation as needed at al l times during the patient's visit in the emergency department. I agree with the clinical impression , plan and disposition. at 0850 Electronically Signed by Papa Griffin DO on at 1411 RPT #:[id number] END OF REPORT 2017-10-21 MOUSTAPHA Norton - 14:48:00-00:00 Discharge Instructions 2 Memoria l (LUF/BLANCA/SA) Discharge Diagnosis Back Pain Important Information [...]
[2023-04-28] MEDS ORDERED: dexAMETHasone 10 MG/ML VIAL ONE (02:34)
[2023-04-28] MEDS ORDERED: METOCLOPRAMIDE 10 MG/2mL INJ ONE (02:34)
[2023-04-28] MEDS ORDERED: NA CHLORIDE 0.9% 1,000 ML ONE (02:34)
[2023-04-28] MEDS ORDERED: DIPHENHYDRAMINE 50 MG/ML VIAL ONE (02:34)
[2023-04-28] MEDS ORDERED: KETOROLAC 30 MG/ML INJ ONE (02:34)
[2023-04-28] MEDS ORDERED: MAGNESIUM SULFATE 1 gm IVPB 1 GM/100 ML BAG IV ONE (02:34)
--- NOTE | 2023-04-28 03:01 | ER ---
Nurse's Notes [facility] Name: Ruben Alamo Age: 47 yrs Sex: Male : 1975 Arrival Date: 04/28/2023 Time: 01:52 Bed 5 Private MD: Diagnosis: Headache Presentation: 04/28 01:58 Chief complaint: Patient states: headache pain of 7,onset yesterday at 1400. Patient pf1 stated took [place] 10mg/325mg at 1700 last night. 01:58 Coronavirus screen: Vaccine status: Patient reports receiving the 2nd dose of the covid pf1 vaccine. 3 doses of pfizer Client denies travel out of the [place] in the last 14 days. Client presents with at least one sign or symptom that may indicate coronavirus-19. Ebola Screen: Patient negative for fever greater than or equal to 101.5 degrees Fahrenheit, and additional compatible Ebola Virus Disease symptoms. Initial Sepsis Screen: Does the patient meet any 2 criteria? No. Patient's initial sepsis screen is negative. Does the patient have a suspected source of infection? No. Patient's initial sepsis screen is negative. Risk Assessment: Do you want to hurt yourself or someone else? Patient reports no desire to harm self or others. 01:58 Method Of Arrival: Ambulatory pf1 01:58 Acuity: LIZBETH 3 pf1 02:49 Onset of symptoms was April 28, 2023. Triage Assessment: 02:47 Headache History: The patient has had previous headaches and this one is similar to rv previous episodes. General: Appears in no apparent distress. uncomfortable, Behavior is calm, cooperative. Pain: Complains of pain in top of head Pain currently is 8 out of 10 on a pain scale. Pain began suddenly, Also complains of photophobia. Neuro: Level of Consciousness is awake, alert, obeys commands, Oriented to person, place, time, situation. Cardiovascular: Capillary refill < 3 seconds. Respiratory: Airway is patent Respiratory effort is even, unlabored. GI: No signs and/or symptoms were reported involving the gastrointestinal system. : No signs and/or symptoms were reported regarding the genitourinary system. Derm: Skin is intact. Historical: - Allergies: 02:15 Iodine; pf1 02:15 PENICILLINS; pf1 02:15 SHELLFISH; pf1 - PMHx: 02:15 Chronic pain; Hypertensive disorder; Headache; pf1 - PSHx: 02:15 facial reconstruction; Spinal surgery; pf1 - Immunization history:: Adult Immunizations up to date, Last tetanus immunization: < 5 years ago Flu vaccine is up to date. - Social history:: Smoking status: Patient reports use of chewing tobacco. Patient/guardian denies using alcohol, street drugs. Screenin:[address] [facility] ED Fall Risk Assessment (Adult) History of falling in the last 3 months, rv including since admission No falls in past 3 months (0 pts) Confusion or Disorientation No (0 pts) Intoxicated or Sedated No (0 pts) Impaired Gait No (0 pts) Mobility Assist Device Used No (0 pt) Altered Elimination No (0 pt) Score/Fall Risk Level 0 - 2 = Low Risk Oriented to surroundings, Maintained a safe environment, Educated pt \T\ family on fall prevention, incl call for assistance when getting out of bed, Assessed \T\ reinforced patient's understanding of fall precautions, Provided non-skid footwear, Hourly rounding (assess needs \T\ fall precautionary measures) done, Used ambulatory aids as needed (educated on \T\ assisted with), Used gait belt as appropriate. Abuse screen: Denies threats or abuse. Denies injuries from another. Nutritional screening: No deficits noted. Tuberculosis screening: No symptoms or risk factors identified. Assessment: 03:30 Reassessment: Patient appears in no apparent distress at this time. Patient and/or jb4 family updated on plan of care and expected duration. Pain level reassessed. Patient is alert, oriented x 3, equal unlabored respirations, skin warm/dry/pink. Patient states feeling better. Vital Signs: 01:58 BP 136 / 71; Pulse 63; Resp 16; Temp 98.5; Pulse Ox 98% on R/A; Weight 131.54 kg; pf1 Height 5 ft. 5 in. ; Pain 7/10; 01:58 Body Mass Index 48.26 (131.54 kg, 165.1 cm) pf1 01:58 Pain Scale: Adult pf1 [place] Coma Score: 02:42 Eye Response: spontaneous(4). Motor Response: obeys commands(6). Verbal Response: sb4 oriented(5). Total: 15. ED Course: 01:53 Patient arrived in ED. am2 02:10 Brown, Maritza, PA-C [facility]. sb4 02:10 Mynor White MD is Attending Physician. sb4 02:15 Triage completed. pf1 02:42 Lee Nguyen, RN is Primary Nurse. rv 02:43 Inserted saline lock: 20 gauge in right forearm, using aseptic technique. rv 02:47 Patient has correct armband on for positive identification. Bed in low position. Call rv light in reach. Side rails up X 1. 02:48 No provider procedures requiring assistance completed. rv 02:49 Arm band placed on right wrist. rv 03:00 Luis Haskins MD is Referral Physician. sb4 03:53 IV discontinued, intact, bleeding controlled, No redness/swelling at site. Pressure jb4 dressing applied. Administered Medications: 02:43 Drug: NS 0.9% IV 1000 ml Route: IV; Rate: 1 bolus; Site: right forearm; rv 02:43 Drug: Ketorolac IVP 30 mg Route: IVP; Site: right forearm; rv 02:43 Drug: Magnesium Sulfate IVPB 1 grams Route: IVPB; Infused Over: 1 hrs; Site: right rv forearm; 02:43 Drug: metoCLOPramide IVP 10 mg Route: IVP; Site: right forearm; rv 02:43 Drug: Decadron - Dexamethasone IVP 10 mg Route: IVP; Site: right forearm; rv 02:43 Drug: diphenhydrAMINE IVP 12.5 mg Route: IVP; Site: right forearm; rv Medication: 02:49 VIS not applicable for this client. rv Outcome: 03:00 Discharge ordered by . sb4 03:53 Discharged to home ambulatory. jb4 03:53 Condition: stable 03:53 Discharge instructions given to patient, Instructed on discharge instructions, follow up and referral plans. Demonstrated understanding of instructions, follow-up care. 03:53 Patient left the ED. jb4 Signatures: Darnell Watkins RN RN jb4 Janie Tristan am2 Lee Nguyen, RN RN rv Maritza Rose PA-C PA-C sb4 Josy Crespo RN RN pf1
--- NOTE | 2023-04-28 03:01 | EDPHYS ---
Physician Documentation [facility] Name: Ruben Alamo Age: 47 yrs Sex: Male : 1975 Arrival Date: 04/28/2023 Time: 01:52 Bed 5 Private MD: [facility] Physician Mynor White HPI: 04/28 02:41 This 47 yrs old Black Male presents to ER via Ambulatory with complaints of Headache. sb4 02:41 The patient complains of pain to the top of head. The patient describes the headache as sb4 intermittent. 02:42 Onset: The symptoms/episode began/occurred last night. Associated signs and symptoms: sb4 Pertinent negatives: dizziness, nausea, neck stiffness, paresthesias, Photophobia vision changes, vomiting. Severity of symptoms: in the emergency department the pain a " 7" out of "10". Headache History: The patient has had previous headaches and this one is similar to previous episodes. The symptoms are alleviated by nothing. the symptoms are aggravated by nothing. The patient has experienced similar episodes in the past, several times. The patient has not recently seen a physician. Historical: - Allergies: 02:15 Iodine; pf1 02:15 PENICILLINS; pf1 02:15 SHELLFISH; pf1 - PMHx: 02:15 Chronic pain; Hypertensive disorder; Headache; pf1 - PSHx: 02:15 facial reconstruction; Spinal surgery; pf1 - Immunization history:: Adult Immunizations up to date, Last tetanus immunization: < 5 years ago Flu vaccine is up to date. - Social history:: Smoking status: Patient reports use of chewing tobacco. Patient/guardian denies using alcohol, street drugs. ROS: 02:42 Constitutional: Negative for fever, chills, and weight loss, Eyes: Negative for injury, sb4 pain, redness, and discharge, ENT: Negative for injury, pain, and discharge, Cardiovascular: Negative for chest pain, palpitations, and edema, Respiratory: Negative for shortness of breath, cough, wheezing, and pleuritic chest pain, Abdomen/GI: Negative for abdominal pain, nausea, vomiting, diarrhea, and constipation, MS/Extremity: Negative for injury and deformity, Skin: Negative for injury, rash, and discoloration. 02:42 Neuro: Positive for headache, Negative for altered mental status, dizziness, gait disturbance, loss of consciousness, numbness, syncope, visual changes. 02:42 All other systems are negative. Exam: 02:42 Constitutional: This is a well developed, well nourished patient who is awake, alert, sb4 and in no acute distress. Head/Face: Normocephalic, atraumatic. Eyes: Extra-ocular motions intact. Periorbital areas with no swelling, redness, or edema. ENT: Mucous membranes moist. Cardiovascular: Regular rate and rhythm with a normal S1 and S2. Respiratory: Lungs have equal breath sounds bilaterally, clear to auscultation and percussion. No rales, rhonchi or wheezes noted. No increased work of breathing, no retractions or nasal flaring. Abdomen/GI: Soft, non-tender, no distension. Skin: Warm, dry with normal turgor. Normal color with no rashes, no lesions, and no evidence of cellulitis. MS/ Extremity: Pulses equal, no cyanosis. Neurovascular intact. Full, normal range of motion. Neuro: Awake and alert, GCS 15, oriented to person, place, time, and situation. Cranial nerves II-XII grossly intact. Motor strength 5/5 in all extremities. Sensory grossly intact. Cerebellar exam normal. Normal gait. Vital Signs: 01:58 BP 136 / 71; Pulse 63; Resp 16; Temp 98.5; Pulse Ox 98% on R/A; Weight 131.54 kg; pf1 Height 5 ft. 5 in. ; Pain 7/10; 01:58 Body Mass Index 48.26 (131.54 kg, 165.1 cm) pf1 01:58 Pain Scale: Adult pf1 [place] Coma Score: 02:42 Eye Response: spontaneous(4). Motor Response: obeys commands(6). Verbal Response: sb4 oriented(5). Total: 15. MDM: 02:10 Patient medically screened. sb4 02:42 Differential diagnosis: cluster headache, hypertensive headache, migraine, tension sb4 headache, vasomotor headache. Data reviewed: vital signs, nurses notes, and as a result, I will discharge patient. Counseling: I had a detailed discussion with the patient and/or guardian regarding: the historical points, exam findings, and any diagnostic results supporting the discharge/admit diagnosis, the need for outpatient follow up, a neurologist, to return to the emergency department if symptoms worsen or persist or if there are any questions or concerns that arise at home. Administered Medications: 02:43 Drug: NS 0.9% IV 1000 ml Route: IV; Rate: 1 bolus; Site: right forearm; rv 02:43 Drug: Ketorolac IVP 30 mg Route: IVP; Site: right forearm; rv 02:43 Drug: Magnesium Sulfate IVPB 1 grams Route: IVPB; Infused Over: 1 hrs; Site: right rv forearm; 02:43 Drug: metoCLOPramide IVP 10 mg Route: IVP; Site: right forearm; rv 02:43 Drug: Decadron - Dexamethasone IVP 10 mg Route: IVP; Site: right forearm; rv 02:43 Drug: diphenhydrAMINE IVP 12.5 mg Route: IVP; Site: right forearm; rv Disposition Summary: 04/28/23 03:00 Discharge Ordered Location: Home sb4 Problem: new sb4 Symptoms: are resolved sb4 Condition: Stable sb4 Diagnosis - Headache sb4 Followup: sb4 - With: - When: As needed - Reason: Recheck today's complaints, Continuance of care, Re-evaluation by your physician Discharge Instructions: - Discharge Summary Sheet sb4 - Migraine Headache, [id number] sb4 Forms: - Medication Reconciliation Form sb4 - Thank You Letter sb4 - Antibiotic Education sb4 - Prescription Opioid Use sb4 - Patient Portal Instructions sb4 Signatures: Lee Nguyen, RN RN Maritza Sutherland PA-C PA-C sb4 Josy Crespo RN RN pf1
[2023-04-28 04:31] VITALS: BP 136/71; TEMP 98.5; O2SAT 98
== END 2023-04-28 03:53 | disposition home or self-care (01) ==
LOC: ER 01:52
DX: R51.9 Headache, unspecified (principal)
CPT/HCPCS: 96374; 96375; 99284; J1100; J1200; J2765; J3475; J7030

== ENCOUNTER 2023-05-13 00:01 | Emergency (ER) | payer SELFPAY ==
--- OUTSIDE RECORDS SUMMARY | 2023-05-13 00:06 | XMS REPORT | Continuity of Care Document ---
:1975 Author Organization [facility] t Address [address] [facility] [address] [place] [address] Care Team Providers Name Role Phone PCP, PATIENT DOES NOT HAVE A Primary Care Physician UnavailArjun Castillo MD Attending Clinician [phone] ANGIE ROSAS Attending Clinician Unavailable Angie Purvis Attending Clinician Filomena GERMAN, Kaycee Attending [...] elkin chronic chronic 03:47:18 l pain pain [place] Active Problem 11/07/2017 Family Diagnostic No known No known Disease Unive rs active active ity of problems problems [facility] [place] Allergies, Adverse Reactions, Alerts Allergy Allergy Status [...] Active Anaphylaxis Gris bermudez h ty to [address] st Derived adverse 00:00: Hospita reaction 00 l s to drug SHELLFIS DRUG Active Unknown-Cmnt Un butch H INGREDI 8-16 ity of DERIVED 00:00: [place] [facility] Shellfis Propensi Active Unknown - Uni vers h ty to See comments 816 ity of Derived adverse 00:00: [place] reaction 00 Medical s Branch No Known DA Active [facility]ie 3-05 Crum Lynne s [facility] No Known DA Active [facility] Allergie 3-05 Crum Lynne s 00:00: [facility] N.Aden Feldman Active Info Not Enrique elkin Available 10-25 00:00: NO KNOWN Drug Active [facility] ALLERGIE Class ity of S [facility] [place] Social History Social Habit Start Date Stop Date Quantity Comments Source [facility] Tobacco use and 2022-06-18 2022-06-18 Smokeless [facility] 00:[facility]:00 00:00:00 tobacco non-user Hospital History of Social 2022-06-18 2022-06-[address] function 00:00:00 00:00:00 Hospital Exposure to 2022-05-20 2022-05-30 Not sure University SARS-CoV-2 (event) 00:00:00 20:57:00 [facility] [place] Sex Assigned At [birth year] [facility] Smoking Status Start Date Stop Date Source Tobacco smoking consumption unknown [facility] Never smoked [facility] Medications Ordered Filled Start Stop [...] st (TEGretol 00:00: 04:59 (200 mg Hosp efderico XR) 200 MG 00 :00 total) by [...] to 7 days. lidocaine 2022- No 4mL Q.[id number] Apply 4 mL Methodi HCL 9-18 06-[id number] (lidocaine) 00:00: 04:59 3D 3 (three) Hospita 2 % 00 :00 times a l solution day for 3 days. Apply to cottonball and place it by toothache lidocaine 2021-0 2022- No 4mL Q.[id number] Apply 4 mL Methodi HCL 9-18 06-[id number] (lidocaine) 00:00: 04:59 3D 3 (three) Hospita 2 % 00 :00 times a l solution day for 3 days. Apply to cotton[place] and place it by toothache lidocaine 2021-0 2022- No 4mL Q.[id number] Apply 4 mL Methodi HCL 9-18 06-[id number] (lidocaine) 00:00: 04:59 3D 3 (three) Hospita 2 % 00 :00 times a l solution day for 3 days. Apply to cotton[place] and place it by toothache lidocaine 2021-0 2022- No 4mL Q.[id number] Apply 4 mL Methodi HCL 9-18 06-[id number] (lidocaine) 00:00: 04:59 3D 3 (three) Hospita 2 % 00 :00 times a l solution day for 3 days. Apply to cotton[place] and place it by toothache lidocaine 2021-0 2022- No 4mL Q.[id number] Apply 4 mL Methodi HCL 9-25 -[id number] (lidocaine) 00:00: 04:59 3D 3 (three) Hospita 2 % 00 :00 times a l solution day for 3 days. Apply to cotton[place] and place it by toothache lidocaine 2021-0 2022- No 4mL Q.[id number] Apply 4 mL Methodi HCL 9-18 06-[id number] (lidocaine) 00:00: 04:59 3D 3 (three) Hospita 2 % 00 :00 times a l solution day for 3 days. Apply to cotton[place] and place it by toothache lidocaine 2021- No 4mL Q.[id number] Apply 4 mL Methodi HCL 06-[id number] (lidocaine) 00:00: 04:59 3D 3 (three) Hospita 2 % 00 :00 times a l solution day for 3 days. Apply to cotton[place] and place it by toothache lidocaine 2021- No 4mL Q.[id number] Apply 4 mL Methodi HCL 06-[id number] (lidocaine) 00:00: 04:59 3D 3 (three) Hospita 2 % 00 :00 times a l solution day for 3 days. Apply to cotton[place] and place it by toothache lidocaine 2021- No 4mL Q.[id number] Apply 4 mL Method[facility] HCL 06-[id number] (lidocaine) 00:00: 04:59 3D 3 (three) Hospita 2 % 00 :00 times a l solution day for 3 days. Apply to cotton[place] and place it by toothache lidocaine 2021- No 4mL Q.[id number] Apply 4 mL Methodi HCL 06-[id number] (lidocaine) 00:00: 04:59 3D 3 (three) Hospita 2 % 00 :00 times a l solution day for 3 days. Apply to cotton[place] and place it by toothache lidocaine 2021- No 4mL Q.[id number] Apply 4 mL Methodi HCL 06-[id number] (lidocaine) 00:00: 04:59 3D 3 (three) Hospita 2 % 00 :00 times a l solution day for 3 days. Apply to cotton[place] and place it by toothache butalbital- 2021- No 1{tbl} 1 tablet, Univers acetaminoph 05-31 Oral, ity of en-caff 02:30: 02:22 ONCE, 1 [place] (ESGIC) 00 :00 dose, On Medical 50-325-40 05/30/22 Bran ch mg tablet 1 at 2130, tablet CHRISTINA butalbital- 2021-0 Yes [id number] 1{tbl} Take 1 Univers acetaminoph 9-06 tablet [...] vomiting for up to 30 days. LISINOPRIL 2021-0 Yes Take by [facility] ers ORAL 8-16 mouth. ity of 21:45: [address] HYDROcodone 2021-0 Yes 1{tbl} Take 1 Un butch -acetaminop 8-16 tablet by ity of hen (NORCO) 21:45: mouth [place] 10-325 mg 20 every 6 Medical tablet (six) Branch hours as needed. LISINOPRIL 2021-0 Yes Take by [facility] ORAL 8-16 mouth. ity of 21:45: [address] HYDROcodone 2022-0 Yes 1{tbl} Take 1 Un butch -acetaminop 8-16 tablet by ity of hen (NORCO) 21:45: mouth [place] 10-325 mg 20 every 6 Medical tablet (six) Branch hours as needed. ketorolac 2021-0 2021- No 30mg 30 mg, Unive rs (TORADOL) 04-23 Intramuscu ity of injection 21:15: 09:14 lar, ONCE, [place] 30 mg 00 :00 1 dose, On Medical [place] Branch 04/23/22 at 1615, Routine metoclopram 2021-0 [...] Memoria 2-14 Irfan l 03:47: Tavo Garibay Meloxicam 2018-0 Yes [...] 2-14 Irfan as needed l hen 03:47: aTvo Garibay Carisoprodo 2018-0 Yes [place] 1 tablet Memoria l 2-14 Irfan as needed l 03:47: [place] Acetaminoph 2018-0 Yes [place] 1 tablet Memoria en-Codeine 2-01 Irfan as needed l #3 00:00: [place] 00 Acetaminoph 2018-0 Yes [place] 1 tablet Memoria en-Codeine 2-01 Irfan as needed l #3 00:00: [place] 00 Acetaminoph 2018-0 Yes [place] 1 tablet Memoria [...] Lukes 00:00: Memoria 00 l (LUF/LI V/SA) [place] 2018-0 Yes [place] 1 tablet Enriuqe elkin 1-15 Irfan as needed l 00:00: [place] 2018-0 Yes [place] 1 tablet Memor ia 1-15 Irfan as needed l 00:00: Meloxicam 2018-0 Yes [place] 1 tablet Memoria 1-15 Irfan l 00:00: [place] 2018-0 Yes [place] 1 tablet Enrique elkin 1-15 Irfan as needed l 00:00: [place] 2018-0 Yes [place] 1 tablet Memor ia 1-15 Irfan as needed l 00:00: Meloxicam 2018-0 Yes [place] 1 tablet Memoria 1-15 Irfan l 00:00: [place] 2018-0 Yes [place] 1 tablet Enrique elkin 1-15 Irfan as needed l 00:00: [place] 2018-0 Yes [place] 1 tablet Memor ia 1-15 Irfan as needed l 00:00: Meloxicam 2018-0 Yes [place] 1 tablet Memoria 1-15 Irfan l 00:00: [place] 2018-0 Yes [place] 1 tablet Enrique elkin 1-15 Irfan as needed l 00:00: [place] 2018-0 Yes [place] 1 tablet Memor ia 1-15 Irfan as needed l 00:00: Meloxicam 2018-0 Yes [place] 1 tablet Memoria 1-15 Irfan l 00:00: [place] 2018-0 Yes [place] 1 tablet Enrique elkin 1-15 Irfan as needed l 00:00: [place] 2018-0 Yes [place] 1 tablet Memor ia 1-15 Irfan as needed l 00:00: Meloxicam 2018-0 Yes [place] 1 tablet Memoria 1-15 Irfan l 00:00: [place] 2018-0 Yes [place] 1 tablet Ernique elkin 1-15 Irfan as needed l 00:00: [place] 2018-0 Yes [place] 1 tablet Memor ia 1-15 Irfan as needed l 00:00: Meloxicam 2018-0 Yes [place] 1 tablet Memoria 1-15 Irfan l 00:00: [place] 2018-0 Yes [place] 1 tablet Enrique elkin 1-15 Irfan as needed l 00:00: [place] 2018-0 Yes [place] 1 tablet Memor ia 1-15 Irfan as needed l 00:00: Meloxicam 2018-0 Yes [place] 1 tablet Memoria 1-15 Irfan l 00:00: Meloxicam 2018-0 Yes [place] 1 tablet Memoria 1-15 Irfan l 00:00: [place] 2018-0 Yes [place] 1 tablet Memor ia 1-15 Irfan as needed l 00:00: [place] 2018-0 Yes [place] 1 tablet Enrique elkin 1-15 Irfan as needed l 00:00: [place] 2018-0 Yes [place] 1 tablet Enrique elkin 1-15 Irfan as needed l 00:00: Meloxicam 2018-0 Yes [place] 1 tablet Memoria 1-15 Irfan l 00:00: [place] 2018-0 Yes [place] 1 tablet Memor ia 1-15 Irfan as needed l 00:00: acetaminoph 0 Yes 1{tbl} Take [...] Source Systolic blood 2022-05-31 01:59:00 128 mm[Hg] [facility] Diastolic blood 2022-05-31 01:59:00 81 mm[Hg] Unive [facility] Heart rate 2022-05-31 01:59:00 78 /min [facility] Body temperature 2022-05-31 01:59:00 36.94 Maisha [facility] Respiratory rate 2022-05-31 01:59:00 18 /min [facility] Body height 2022-05-31 01:59:00 165.1 cm [facility] Body weight 2022-05-31 01:59:00 127.007 kg [facility] BMI 2022-05-31 01:59:00 46.59 kg/m2 [facility] Oxygen saturation in 2022-05-31 01:59:00 95 /min University of Arterial blood by [facility] shannan Pulse oximetry Branch Systolic blood 2022-05-10 02:39:00 148 mm[Hg] Univer sity of pressure [place] [facility] Diastolic blood 2022-05-10 02:39:00 84 mm[Hg] Unive rsity of pressure [place] [facility] Heart rate 2022-05-10 02:39:00 70 /min [facility] [place] [facility] Body temperature 2022-05-10 02:39:00 37.56 Amisha Univ ers[facility] [place] [facility] Respiratory rate 2022-05-10 02:39:00 18 /min Univ [facility] [place] [facility] Body height 2022-05-10 02:39:00 162.6 cm [facility] [place] [facility] Body weight 2022-05-10 02:39:00 127.007 kg [facility] [place] [facility] BMI 2022-05-10 02:39:00 48.06 kg/m2 [facility] [place] [facility] Oxygen saturation in 2022-05-10 02:39:00 95 /min University of Arterial blood by [facility] Pulse oximetry Branch Body weight 2022-04-23 20:11:00 133.131 kg [facility] [place] [facility] BMI 2022-04-23 20:11:00 50.38 kg/m2 [facility] [place] [facility] Systolic blood 2022-04-23 20:09:00 140 mm[Hg] Univer sity of pressure [place] [facility] Diastolic blood 2022-04-23 20:09:00 81 mm[Hg] Unive rsity of pressure [place] [facility] Heart rate 2022-04-23 20:09:00 66 /min [facility] [place] [facility] Body temperature 2022-04-23 20:09:00 36.72 Amisha [facility] [place] [facility] Respiratory rate 2022-04-23 20:09:00 17 /min [facility] [place] [facility] Body height 2022-04-23 20:09:00 162.6 cm [facility] [place] [facility] Oxygen saturation in 2022-04-23 20:09:00 97 /min University of Arterial blood by [facility] Pulse oximetry Branch Systolic blood 2022-06-18 15:20:24 157 mm[Hg] [facility] pressure Diastolic blood 2022-06-18 15:20:24 74 mm[Hg] [facility] [place] pressure Heart rate 2022-06-18 15:20:24 53 /min [facility] Body temperature 2022-06-18 15:20:24 36.78 Amisha [facility] Respiratory rate 2022-06-18 15:20:24 16 /min [facility] Oxygen saturation in 2022-06-18 15:20:24 97 /min [facility] Arterial blood by Pulse oximetry Body height 2022-06-18 12:48:00 162.6 cm [facility] Body weight 2022-06-18 12:48:00 127.007 kg [facility] BMI 2022-06-18 12:48:00 48.06 kg/m2 [facility] Systolic blood 2022-05-21 00:33:00 132 mm[Hg] [facility] pressure Diastolic blood 2022-05-21 00:33:00 64 mm[Hg] [facility] [place] pressure Heart rate 2022-05-21 00:33:00 64 /min [facility] Oxygen saturation in 2022-05-21 00:33:00 98 /min [facility] Arterial blood by Pulse oximetry Body temperature 2022-05-20 23:53:12 36.17 Amisha [facility] Respiratory rate 2022-05-20 23:53:12 18 /min [facility] Body height 2022-05-20 23:52:00 162.6 cm [facility] Body weight 2022-05-20 23:52:00 127.007 kg [facility] BMI 2022-05-20 23:52:00 48.06 kg/m2 [facility] Weight 2017-10-25 15:00:00 [facility] Height 2017-10-25 15:00:00 [facility] [place] Temperature Oral (F) 2017-10-25 15:00:00 97.8 F [facility] Heart Rate 2017-10-25 15:00:00 [facility] [place] Diastolic (mm Hg) 2017-10-25 15:00:00 Mem orial [place] Systolic (mm Hg) 2017-10-25 15:00:00 Enrique rial [place] Body Temperature 2017-10-21 12:00:00 97.5 F [facility] (LUF/BLANCA/SA) Respiratory Rate 2017-10-21 12:00:00 20 /min [facility] (LUF/BLANCA/SA) O2% BldC Oximetry 2017-10-21 12:00:00 98 % [facility] (LUF/BLANCA/SA) BP Systolic 2017-10-21 12:00:00 132 mm[Hg] [facility] (LUF/BLANCA/SA) BP Diastolic 2017-10-21 12:00:00 78 mm[Hg] [facility] (LUF/BLANCA/SA) Height 2017-10-21 12:00:00 64 in [facility] (LUF/BLANCA/SA) Weight Measured 2017-10-21 12:00:00 282.19 lbs [facility] marlyn [facility] (LUF/BLANCA/SA) BMI (Body Mass 2017-10-21 12:00:[address] [facility] (LUF/BLANCA/SA) Weight 2017-10-08 15:45:00 [facility] [place] Height 2017-10-08 15:45:00 [facility] Tavo Temperature Oral (F) 2017-10-08 15:45:00 96.8 F [facility] Atvo Heart Rate 2017-10-08 15:45:00 [facility] [place] Diastolic (mm Hg) 2017-10-08 15:45:00 [facility] orial [place] Systolic (mm Hg) 2017-10-08 15:45:00 Enrique rial [place] Procedures Procedure Date / Time Performing Clinician Source Performed CT MAXILLOFACIAL WO 2022-06-18 14:48:32 Frida Patton [facility] CONTRAST CONSENT/REFUSAL FOR 2022-05-31 01:55:15 [facility] Name [facility] CT CERVICAL SPINE WO 2022-05-21 01:24:51 Kaycee Butt [facility] CONTRAST CT HEAD WO CONTRAST 2022-05-21 01:15:40 Kaycee Butt [facility] POC GLUCOSE 2022-05-21 00:33:00 Kaycee Butt [facility] NOTICE OF PRIVACY 2022-05-10 02:37:04 Doctor Unassigned, No Univ ersity [facility] PRACTICES Name Medical Branch CONSENT/REFUSAL FOR 2022-05-10 02:35:02 Doctor Unassigned, No [facility] [place] DIAG[facility]IS [facility] TREATMENT Name Medical Branch CONSENT/REFUSAL FOR 2022-04-23 20:00:28 Doctor Unassigned, No [facility] [place] DIAGNOSIS AND TREATMENT Name Medical Branch Plan of Care Planned Activity Planned Date Details Comments Source Future Scheduled 2023-04-27 [facility] Test 11:13:08 malignant neoplasm of colon (procedure) [code = 612020583] Future Scheduled 2023-04-27 [facility] Test 11:13:08 malignant neoplasm of colon (procedure) [code = 001215055] Future Scheduled 2023-04-27 [facility] Test 11:13:08 malignant neoplasm of colon (procedure) [code = 903525326] Future Scheduled 2023-04-27 [facility] Test 11:13:08 (procedure) [code = 484788978] Future Scheduled 2023-04-27 COVID-19 VACCINE (3 - [facility] Test 11:13:08 Pfizer series) [code = COVID-19 VACCINE (3 - Pfizer series)] Future Scheduled 2023-04-27 [facility] Test 11:13:08 malignant neoplasm of colon (procedure) [code = 959418304] Future Scheduled 2023-04-27 [facility] Test 11:13:08 malignant neoplasm of colon (procedure) [code = 253772996] Future Scheduled 2023-04-27 INFLUENZA VACCINE [facility] Test 11:13:08 [code = INFLUENZA VACCINE] Future Scheduled 2023-04-27 [facility] Test 11:13:08 malignant neoplasm of colon (procedure) [code = 011964195] Future Scheduled 2023-04-27 [facility] Test 11:13:08 malignant neoplasm of colon (procedure) [code = 536639769] Future Scheduled 2023-04-27 [facility] Test 11:13:08 malignant neoplasm of colon (procedure) [code = 283066116] Future Scheduled 2023-04-27 [facility] Test 11:13:08 (procedure) [code = 496751228] Future Scheduled 2023-04-27 COVID-19 VACCINE (3 - [facility] Test 11:13:08 Pfizer series) [code = COVID-19 VACCINE (3 - Pfizer series)] Future Scheduled 2023-04-27 [facility] Test 11:13:08 malignant neoplasm of colon (procedure) [code = 721995160] Future Scheduled 2023-04-27 [facility] Test 11:13:08 malignant neoplasm of colon (procedure) [code = 724942105] Future Scheduled 2023-04-27 INFLUENZA VACCINE [facility] Test 11:13:08 [code = INFLUENZA VACCINE] Future Scheduled 2023-01-09 [facility] 02:12:34 (procedure) [code = 874753697] Future Scheduled 2023-01-09 COVID-19 VACCINE (3 - [facility] Test 02:12:34 Booster for Pfizer series) [code = COVID-19 VACCINE (3 - Booster for Pfizer series)] Future Scheduled 2023-01-09 [facility] Test 02:12:34 [code = COLONOSCOPY SCREENING] Future Scheduled 2023-01-09 INFLUENZA VACCINE [facility] Test 02:12:34 [code = INFLUENZA VACCINE] Future Scheduled 2023-01-09 [facility] C screening [facility] Test 02:12:34 (procedure) [code = 550118762] Future Scheduled 2023-01-09 COVID-19 VACCINE (3 - [facility] Test 02:12:34 Booster for Pfizer series) [code = COVID-19 VACCINE (3 - Booster for Pfizer series)] Future Scheduled 2023-01-09 [facility] Test 02:12:34 [code = COLONOSCOPY SCREENING] Future Scheduled 2023-01-09 INFLUENZA VACCINE Method [facility] Test 02:12:34 [code = INFLUENZA VACCINE] Future Scheduled 2022-09-08 [facility] 15:04:49 (procedure) [code = 654543525] Future Scheduled 2022-09-08 COVID-19 VACCINE (3 - [facility] Test 15:04:49 Booster for Pfizer series) [code = COVID-19 VACCINE (3 - Booster for Pfizer series)] Future Scheduled 2022-09-08 INFLUENZA VACCINE Method [facility] Test 15:04:49 [code = INFLUENZA VACCINE] Future Scheduled 2022-09-08 [facility] Test 15:04:49 (procedure) [code = 270758068] Future Scheduled 2022-09-08 COVID-19 VACCINE (3 - [facility] Test 15:04:49 Booster for Pfizer series) [code = COVID-19 VACCINE (3 - Booster for Pfizer series)] Future Scheduled 2022-09-08 INFLUENZA VACCINE Method [facility] Test 15:04:49 [code = INFLUENZA VACCINE] Future Scheduled 2022-09-[address] [facility] Test 15:04:49 (procedure) [code = 454013321] Future Scheduled 2022-09-08 COVID-19 VACCINE (3 - Me [facility] Test 15:04:49 Booster for Pfizer series) [code = COVID-19 VACCINE (3 - Booster for Pfizer series)] Future Scheduled 2022-09-08 INFLUENZA VACCINE Method [facility] Test 15:04:49 [code = INFLUENZA VACCINE] Future Scheduled 2022-09-08 Hepatitis C screening [facility] Test 15:04:49 (procedure) [code = 217015811] Future Scheduled 2022-09-08 COVID-19 VACCINE (3 - [facility] Test 15:04:49 Booster for Pfizer series) [code = COVID-19 VACCINE (3 - Booster for Pfizer series)] Future Scheduled 2022-09-08 INFLUENZA VACCINE Method [facility] Test 15:04:49 [code = INFLUENZA VACCINE] Future Scheduled 2022-06-18 HEPATITIS B VACCINES Met [facility] Test 09:25:33 (1 of 3 - 3-dose series) [code = HEPATITIS B VACCINES (1 of 3 - 3-dose series)] Future Scheduled 2022-06-[address] [facility] Test 09:25:33 (procedure) [code = 174697173] Future Scheduled 2022-06-18 COVID-19 VACCINE (3 - [facility] Test 09:25:33 Booster for Pfizer series) [code = COVID-19 VACCINE (3 - Booster for Pfizer series)] Future Scheduled 2022-06-18 INFLUENZA VACCINE Method [facility] Test 09:25:33 [code = INFLUENZA VACCINE] Future Scheduled 2022-06-18 HEPATITIS B VACCINES Met [facility] Test 09:25:33 (1 of 3 - 3-dose series) [code = HEPATITIS B VACCINES (1 of 3 - 3-dose series)] Future Scheduled 2022-06-[address] [facility] Test 09:25:33 (procedure) [code = 982565566] Future Scheduled 2022-06-18 COVID-19 VACCINE (3 - [facility] Test 09:25:33 Booster for Pfizer series) [code = COVID-19 VACCINE (3 - Booster for Pfizer series)] Future Scheduled 2022-06-18 INFLUENZA VACCINE Method [facility] Test 09:25:33 [code = INFLUENZA VACCINE] Future Scheduled 2022-06-18 HEPATITIS B VACCINES Met [facility] Test 09:25:33 (1 of 3 - 3-dose series) [code = HEPATITIS B VACCINES (1 of 3 - 3-dose series)] Future Scheduled 2022-06-18 Hepatitis C screening [facility] Test 09:25:33 (procedure) [code = 678695103] Future Scheduled 2022-06-18 COVID-19 VACCINE (3 - [facility] Test 09:25:33 Booster for Pfizer series) [code = COVID-19 VACCINE (3 - Booster for Pfizer series)] Future Scheduled 2022-06-18 INFLUENZA VACCINE Method [facility] Test 09:25:33 [code = INFLUENZA VACCINE] Future Scheduled 2022-06-09 HEPATITIS B VACCINES Met [facility] Test 18:36:38 (1 of 3 - 3-dose series) [code = HEPATITIS B VACCINES (1 of 3 - 3-dose series)] Future Scheduled 2022-06-09 Hepatitis C screening [facility] Test 18:36:38 (procedure) [code = 304071510] Future Scheduled 2022-06-09 COVID-19 VACCINE (3 - [facility] Test 18:36:38 Booster for Pfizer series) [code = COVID-19 VACCINE (3 - Booster for Pfizer series)] Future Scheduled 2022-06-09 INFLUENZA VACCINE Method [facility] Test 18:36:38 [code = INFLUENZA VACCINE] Future Scheduled 2022-05-25 HEPATITIS B VACCINES Met [facility] Test 07:52:22 (1 of 3 - 3-dose series) [code = HEPATITIS B VACCINES (1 of 3 - 3-dose series)] Future Scheduled 2022-05-25 Hepatitis C screening [facility] Test 07:52:22 (procedure) [code = 269951585] Future Scheduled 2022-05-25 COVID-19 VACCINE (3 - Me [facility] Test 07:52:22 Booster for Pfizer series) [code = COVID-19 VACCINE (3 - Booster for Pfizer series)] Future Scheduled 2022-05-25 INFLUENZA VACCINE Method [facility] Test 07:52:22 [code = INFLUENZA VACCINE] Future Scheduled 2022-05-25 HEPATITIS B VACCINES [facility] Test 07:52:22 (1 of 3 - 3-dose series) [code = HEPATITIS B VACCINES (1 of 3 - 3-dose series)] Future Scheduled 2022-05-25 Hepatitis C screening [facility] Test 07:52:22 (procedure) [code = 820821743] Future Scheduled 2022-05-25 COVID-19 VACCINE (3 - [facility] Test 07:52:22 Booster for Pfizer series) [code = COVID-19 VACCINE (3 - Booster for Pfizer series)] Future Scheduled 2022-05-25 INFLUENZA VACCINE [facility] Test 07:52:22 [code = INFLUENZA VACCINE] Encounters Start End Encounter Admission Attending Care Care Encounter Source Date/Time Date/Time Type Type Clinicians Facility Department ID [id number] Outpatient 6OQ8DV63- 5SA2KV51-27 9FB8 AE55-2 Memoria 00:04:30 56O4-6W91 E3-6T51-817 1X5-4I37- 8 l -818B-D48 B-D41A48832 18B-D48E11 Tavo P63648X29 B77 601B77 2023-04-28 Outpatient YJ310S91- UG772Q13-0O BF11 8E44-4 Memoria 01:56:12 4U18-10S7 29-60F4-14Y Z32-76K1- 8 l -43T3-852 6-5008084LR 2Q0-393147 Tavo 9746SP28Y 55D 4BD55D 2023-02-13 Outpatient 47N9Z272- 60H0Y839-F7 74F9 E380-D Memoria 07:15:33 B186-8WQ6 14-2DU8-VV5 414-4AA9- A l -DR6H-1SK A-1VLME0K53 R9X-1RCIZ5 [place] OI1Y11D7I F4B A56F4B 2023-01-21 Outpatient 63T930R8- 53Z931R0-5N 16F3 10F0-0 Memoria 18:12:35 3MO9-94K5 C8-17J3-42V EC8-41B6- 8 l -84FA-CDD A-USU731PKY 4FA-EEY582 [place] 109HZV708 063 AWQ422 2022-12-02 Outpatient 65I798Q7- 96D793U0-36 04F8 97C6-9 Memoria 21:50:02 977E-4F82 7E-0I75-076 77E-4F82- 8 l -8693-8E8 3-4M3E90942 693-8E8C26 Tavo E337179M2 6F6 1306F6 2022-11-12 Outpatient D7665AR4- G3511OT3-SL F702 5ED6-A Memoria 01:29:42 ADA0-43F6 A0-48S8-X78 DA0-43F6- A l -I487-81H 6-62D3K72XN 116-87F8D9 Tavo 3T66FHL3P C1D 5BBC1D 2022-10-16 Outpatient 2Q536HMN- 0D742EMO-0V 7A87 7EEE-1 Memoria 06:48:40 6ZM8-4643 B4-4798-8A7 AB4-4798- 8 l -7X8I-75Z F-81W4UH005 J9H-69A5EP Tavo 4QV265Z34 D64 698D64 2022-09-25 Outpatient 7ZB4428G- 5MX8372F-95 3BD2 723F-9 Memoria 18:40:25 26H8-7L65 D1-6G04-95H 8V0-5Q21- 8 l -89BD-1A5 D-0F2FYTD57 9BD-1A5DCD Tavo LGBP474G7 6A3 E256A3 2022-07-11 Outpatient 66Z9W90W- 03A3T28J-01 94C6 F00D-5 Memoria 20:33:16 41E7-89LW F4-47BE-8F8 3Q7-67WG- 8 l -1N5A-35J F-89THQE350 U5I-80QPVJ Tavo BQF056KKM FAD 309FAD 2022-07-05 Outpatient 5624J7T0- 7754T9O5-30 3842 B7D1-4 Memoria 21:55:55 44Y4-29X0 E6-58K6-Z19 0E2-94Y5- A l -G86O-7N3 A-0A975IKA9 53A-2N254I [place] 85LEW5U9C F6F BA1F6F 2022-06-20 Outpatient ZEFPX4BX- DOFNG3LS-T5 FEAA B0FE-B [facility] 20:55:03 U65G-8NXR 9E-4FBC-9E6 39E-4FBC- 9 l -3Y32-K93 0-O58EXW523 K12-B05XSQ Tavo BBE0785R7 7B9 9867B9 2022-06-18 Outpatient 0Q5080YS- 4A6272BR-9L 4A16 41FC-3 Memoria 07:44:31 9S51-6AWW 17-4EED-9D8 W83-2LIS- 9 l -3D71-W4R 1-Z4JV028S9 E92-T2BM03 [place] K888N8B34 A09 2A0A09 2022-06-14 Outpatient 9T6922Y6- 2Y2232S7-K6 4F66 73A9-D Mem[facility] 22:44:21 L33E-1U27 0A-3S03-377 90A-4A19- 9 l -9064-22B 4-53G612O3R 064-55K999 [place] 580C7Y313 120 S6Y130 2022-06-08 Outpatient G5038QF8- K9298ZP1-W8 F051 4BD7-F [facility] 21:22:44 H74X-2JV8 4B-7CK9-287 44B-4BC4- 8 l -819B-E8C B-N7E46900Q 19B-B1J034 Tavo 41676EJ15 C63 53AC63 2022-06-03 Outpatient AJOA73M6- RJXC74S9-23 ABCB 93A3-4 Memoria 01:33:52 4565-43DE 65-43DE-92E 565-43DE- 9 l -06R0-337 7-593EV63YA 2F1-994ZB9 Tavo RM57UW708 217 7LW301 2022-05-30 Outpatient 283YZ060- 165IT490-5R 114E F493-4 Mem[facility] 20:55:52 5S33-871D 39-438E-9B8 G77-986O- 9 l -9T61-7HX 0-8BYS9L9IP T81-6MBO6J Tavo A1X6LVH43 F41 4BEF41 2022-05-20 Outpatient 0M05D94F- 4N82D79Z-2Z 5C46 A21D-1 [facility] 18:55:15 1FAA-4CF3 AA-7QM2-64F FAA-4CF3- 8 l -80ED-A77 D-S85O33649 0ED-A77A25 Tavo [id number] 664 364268 3832-09-27 Outpatient [id number]- 3C665253-90 5C72 5329-4 [facility] 14:21:52 19F9-4RSJ F0-4CEA-948 7E1-8USU- 9 l -9486-B77 6-L52VCC5Q1 486-B77BBD Tavo GTE5C74Y1 4C4 1C14C4 2021-06-20 Outpatient 521FRH68- 699EXB01-59 596A BE16-8 Mem[facility] 14:21:45 8434-49AE 34-49AE-95B 434-49AE- 9 l -95BD-57D D-87EN27I5K 5BD-57DA06 Tavo F27N5P541 032 Q2R967 2021-05-30 Outpatient [id number]- AT594238-QA CE68 9471-D Memoria 15:44:20 DAF5-4596 F5-4596-BFE AF5-4596- B l -BFE1-51A 1-42MTZ88KX FE1-51ACA1 Tavo EQ08BZ5FC 1BA 9CA1BA 2020-01-20 Inpatient [facility]RIHS [id number] [facility] 15:25:00 21 [facility] 2019-12-16 Inpatient [facility] [id number] [facility] 17:49:00 32 [facility] 2019-12-12 Inpatient [facility] [id number] [facility] 08:32:00 83 [facility] 2019-11-27 Inpatient [facility] IR[facility] [id number] [facility] 07:33:00 06 [facility] 2022-06-18 2022-06-18 Emergency Rodolfo, 1.2.840.1 [id number] 2100 [id number] Methodi 07:52:00 10:32:[address] [facility] 3.430.2.7 [facility] .3.143475 l .8 2022-06-18 2022-06-18 Emergency Rodolfo, 1.2.840.1 [id number] 2100 111904 Methodi 07:52:00 10:32:[address] Subhash 3.430.2.7 [facility] .3.774803 l .8 2022-05-30 2022-05-30 Emergency X [facility] ERT [id number] [facility] 21:02:00 21:53:00 ANGIE ibrahim of [facility] 2022-05-30 2022-05-30 Emergency [facility] 1.2.696.803 6112 2067 [facility] 21:02:00 21:53:00 Alisonradha RAFAELA 350.1.13.10 i [facility] 4.2.7.2.686 [facility] [id number] [address] 2022-05-20 2022-05-20 Emergency Bárbara 1.2.840.1 [id number] Methodi 19:29:00 21:04:[address] 3.430.2.7 Hospit a .3.413040 l .8 2022-05-20 2022-05-20 Emergency Bárbara 1.2.840.1 [id number] Methodi 19:29:00 21:04:[address] 3.430.2.7 Hospit a .3.562592 l .8 2022-05-20 2022-05-20 Travel 1.2.840.1 1.2.295.204 1775 481797 Methodi 00:00:00 00:00:[address] 3.430.2.7 0.2.7.3.698 Ho spita .3.413617 084.8 l .8 2022-05-20 2022-05-20 Travel 1.2.840.1 1.2.122.094 4713 442978 Methodi 00:00:00 00:00:[address] 3.430.2.7 0.2.7.3.698 Ho spita .3.546259 084.8 l .8 2022-05-09 2022-05-09 Emergency X [facility] ERT [id number] 7301 Univers 21:45:00 21:46:00 CHER ibrahim [facility] 2022-05-09 2022-05-09 Emergency [facility] 1.2.840.114 95 794690 Univers 21:45:00 21:46:00 [facility] 4.2.7.2.686 [facility] [id number] [address] 2022-04-23 2022-04-23 Emergency X [facility] ERT [id number] Univers 15:11:00 15:52:00 BO fu [facility] 2022-04-23 2022-04-23 [facility] 1.2.665.867 8820 2241 Univers 15:11:00 15:52:00 Bo RUSSO 350.1.13.10 ity [facility] 4.2.7.2.686 [facility] [id number] [address] 2021-09-14 2021-09-14 Outpatient FERGUSON_JO [facility] 117 992 [place] 02:13:00 02:[place] [address] [place] [facility] Program 2021-09-08 2021-09-08 Outpatient FERGUSON_JO [facility] 117 312-202 [place] 02:19:00 02:19:00 [place] [address] da [facility] Outre h Program 2017-11-01 2017-11-01 Outpatient Family Family 316327 eClinic 10:47:00 10:47:00 [facility] 2017-10-25 2017-10-25 Outpatient Family Family [id number] eClinic 09:00:00 09:00:00 [facility] 2017-10-21 2017-10-21 PAIN IN NIKKI, [facility] [id number] 11:51:00 14:48:00 [facility] 2017-10-21 2017-10-21 PAIN IN NIKKI, [facility] [id number] [facility] 11:51:00 14:48:00 [facility], [address], (LUF/[place] [address] 2017-10-08 2017-10-08 Outpatient Family Family [id number] eClinic 09:45:00 09:45:00 [facility] Clinic Results Test Description Test Time Test Comments Results Result Comments Source POC glucose 2022-05-21 00:34:00 Test Item Value Reference Range Interpretation Comme nts POC glucose (test code = 00067-0) 217 mg/dL 65-100 H Air Drier Machine Operator Name: Zach Avery ID: [id number] Lab Interpretation (test code = Abnormal 47079-8) [facility] [id number] 00:34:00 Test Item Value Reference Range Interpretation Comments POC glucose (test code = 217 mg/dL 65-100 H Ope rator Name: Zach 86773-5) BinosDevice ID: [id number] Lab Interpretation (test Abnormal code = 73594-5) [facility] [id number] 00:34:00 Test Item Value Reference Range Interpretation Comments POC glucose (test code = 217 mg/dL 65-100 H Ope rator Name: Zach 31470-4) BinosDevice ID: [id number] Lab Interpretation (test Abnormal code = 19892-3) [facility] [id number] 00:34:00 Test Item Value Reference Range Interpretation Comments POC glucose (test code = 217 mg/dL 65-100 H Ope rator Name: Zach Johnston) BinosDevice ID: [id number] Lab Interpretation (test Abnormal code = 95424-8) [facility]2022-08-28 00:34:00 Test Item Value Reference Range Interpretation Comments POC glucose (test code = 217 mg/dL 65-100 H Ope rator Name: Zach Johnston) BinosDevice ID: [id number] Lab Interpretation (test Abnormal code = 34960-6) [facility]2022-08-28 00:34:00 Test Item Value Reference Range Interpretation Comments POC glucose (test code = 217 mg/dL 65-100 H Ope rator Name: Zach Johnston) BinosDevice ID: [id number] Lab Interpretation (test Abnormal code = 22173-1) [facility]2022-08-28 00:34:00 Test Item Value Reference Range Interpretation Comments POC glucose (test code = 217 mg/dL 65-100 H Ope rator Name: Zach Johnston) BinosDevice ID: [id number] Lab Interpretation (test Abnormal code = 64627-6) [facility]2022-08-28 00:34:00 Test Item Value Reference Range Interpretation Comments POC glucose (test code = 217 mg/dL 65-100 H Ope rator Name: Zach Johnston) BinosDevice ID: [id number] Lab Interpretation (test Abnormal code = 20070-2) [facility]2022-08-28 00:34:00 Test Item Value Reference Range Interpretation Comments POC glucose (test code = 217 mg/dL 65-100 H Ope rator Name: Zach Johnston) BinosDevice ID: [id number] Lab Interpretation (test Abnormal code = 83643-3) [facility]2022-08-28 00:34:00 Test Item Value Reference Range Interpretation Comments POC glucose (test code = 217 mg/dL 65-100 H Ope rator Name: Zach Johnston) BinosDevice ID: [id number] Lab Interpretation (test Abnormal code = 89607-7) [facility] [id number] 00:34:00 Test Item Value Reference Range Interpretation Comments POC glucose (test code = 217 mg/dL 65-100 H Ope rator Name: Zach Johnston) BinosDevice ID: [id number] Lab Interpretation (test Abnormal code = 39280-6) [facility]2022-08-28 00:34:00 Test Item Value Reference Range Interpretation Comments POC glucose (test code = 217 mg/dL 65-100 H Ope rator Name: Zach Johnston) BinosDevice ID: [id number] Lab Interpretation (test Abnormal code = 07659-6) [facility]2022-08-28 00:34:00 Test Item Value Reference Range Interpretation Comments POC glucose (test code = 217 mg/dL 65-100 H Ope rator Name: Zach Johnston) BinosDevice ID: [id number] Lab Interpretation (test Abnormal code = 83396-3) [facility]2022-08-28 00:34:00 Test Item Value Reference Range Interpretation Comments POC glucose (test code = 217 mg/dL 65-100 H Ope rator Name: Zach Johnston) BinosDevice ID: [id number] Lab Interpretation (test Abnormal code = 37181-7) [facility] HEAD/BRAIN W/O [id number] 18:19:00 Patient Name: VIMAL BARROSO Unit No: [id number] EXAMS: CPT CODE: [id number] CT HEAD/BRAIN W/O CONT 60763 CLINICAL INFORMATION: Moderate frontal headaches. Coughing. Dictation Location: R 16 COMPARISON: No prior. Technique: CT was done in the usual fashion. Sagittal and coronal reconstructions. Appropriate dose reduction and image optimization technique was used. DLP 758 mGy-cm. FINDINGS: No area of f ocal scalp swelling identified. The skull base and [...] (1818) KirtAGV LORETA Lopez NAME: VIMAL BARROSO [address] [place] [address] PHYS: KELLY Vargas ToroGermania JENARO [place] [address] : 1975 AGE: 44 SEX: M LOC: NohemyERS PHONE #: [phone] EXAM DATE: 12/16/2019 STATUS: PRE ER FAX #: [phone] RAD #: D/C DT PAGE 1 Signed Report Patient Name: VIMAL BARROSO Unit No: [id number] EXAMS: CPT CODE: [id number] CT HEAD/BRAIN W/O CONT 85975 (Continued) Orig Print D/T: S: 12/16/2019 (1821) LORETA Lopez NAME: CALLY[address] PHYS: Germania Isaacs NP [place] [address] : 1975 AGE: 44 SEX: M LOC: B.ERS PHONE #: [phone] EXAM DATE: 12/16/2019 STATUS: PRE ER FAX #: [phone] RAD #: D/C DT PAGE 2 Signed Report- XR CHEST 2 [id number] 09:11:00 FAX: Germania Engel NP [phone] [place]: E St: REG Patient Name: VIMAL BARROSO Unit No: [id number] EXAMS: CPT CODE: [id number] XR CHEST 2 V 54903 - XR CHEST 2 V LOCATION: T18 [...] 12/12/2019 (913) LORETA Lopez NAME: VIMAL BARROSO [address] [place] [address] PHYS: Germania Isaacs [place] [address] : 1975 AGE: 44 SEX: M LOC: B.ERS PHONE #: [phone] EXAM DATE: 12/12/2019 STATUS: REG ER FAX #: [phone] RAD NO: DC Dt: PAGE 1 Signed ReportSPINE LUMBAR CFFB4318-58-40 13:37:[address] [address]PGJZDIPSAH IMAGING REPORTPatient Name: Gustavo BARROSOte of Service: [id number]: 41 Sex: M Order #: [id number] [facility] 1975 X-Ray Number: [id number] Record Number: [id number] Hospital Number: [id number] Physician: Agatha CROW Physician: RUBY TREVIÑO LUMBAR [...] Date/Time Note Provider Source 2020-01-20 [facility] 15:31:00-00:00 [facility] ([facility]) EMERGENCY PROVIDER REPORT REPORT#:[id number] REPORT STATUS: Signed DATE:01/20/20 TIME: 1530 PATIENT: VIMAL BARROSO UNIT #: [id number] ROOM/BED: AGE: 44 SEX: M PCP PHYS: No Primary or Family Ph ysician SERVICE AUTHOR: Jadiel Young DO * ALL edits or amendments must be made on the [employer]/computer document * HPI-Headache General Initial Greet Date/Time 01/20/201529 Presentation Chief Complaint Headache Hx Obtained From [...] symptoms should prompt an immediate return to [facility] or the closest emergency department or a call to 1. at 1542 RPT #:[id number] END OF REPORT 2019-12-16 [facility] 17:52:00-00:00 [facility] ([facility]) EMERGENCY PROVIDER REPORT REPORT#:[id number] REPORT STATUS: Signed DATE:12/16/19 TIME: 1751 PATIENT: VIMAL BARROSO UNIT #: [id number] ROOM/BED: AGE: 44 SEX: M PCP PHYS: No Primary or Family Ph ysician SERVICE AUTHOR: Germania Engel NP * ALL edits or amendments must be made on the [employer] document * HPI-Headache General Confirmed Patient Yes Patient Type New patient Initial Greet Date/Time 12/16/19 175 PCP none Presentation Chief Complaint Headache Hx [...] 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 Risk-Headache Risk Stratification Stroke Risk factors reviewed )( Subarachnoid Hemorrhage Risk factors reviewed )( IC Mass Lesion Risk factors reviewed NIH Stroke Scale NIH Stroke Scale Response Value Level of Consciousness Alert and responsive (0 ) 0 Ask Month Age Both questions right [...] Pulse 91 12/15 175 Resp 20 12/15 1749 Last Documented: Result [...] mass or acute event identified. Impression By: Barbara - Deepak Tee MD Re-Evaluation MDM )( [...] symptoms should prompt an immediate return to [facility] or the closest emergency department or [...] Germania Engel NP on at 0007 RPT #:[id number] END OF REPORT 2019-12-16 [facility] 17:52:00-00:00 [facility] ([facility]) EMERGENCY PROVIDER REPORT REPORT#:[id number] REPORT STATUS: Signed DATE:12/16/19 TIME: 1751 PATIENT: VIMAL BARROSO UNIT #: [id number] ROOM/BED: AGE: 44 SEX: M PCP PHYS: No Primary or Family Ph ysician SERVICE AUTHOR: Germania Engel COTTON PROGRAM TECHNICIAN * ALL edits or amendments must be made on the [employer]/computer document * Germania Engel. 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....pt denies weakness, chills, vision [...] 154/111 12/15 175 B/P Mean 125 12/15 1749 O2 Delivery Room air 12/15 1749 Temp 99.4 12/15 1749 Pulse 91 12/15 175 Resp 20 12/15 1749 Last Documented: Result Date Time Pulse Ox 97 12/15 190 B/P 150/104 12/16 1903 B/P Mean 119 12/16 1903 O2 Delivery Room air 12/16 1903 Temp 99.0 12/16 1903 Pulse 96 12/15 190 Resp 18 12/15 190 Review of Vital [...] Room air 12/15 175 Temp 99.4 12/15 1750 Pulse 91 12/15 1750 Resp 20 12/15 [...] )( Discharged to Home Yes )( Time 1848 )( Date 12/16/19 Discharge/Care Plan Counseled Regarding [...] symptoms should prompt an immediate return to [facility] or the closest emergency department or [...] were reviewe d. I agree with this PA/carbide powder processor findings, exam and plan. Electronically Signed by Germania Engel NP on at 0007 at 0030 RPT #:[id number] END OF REPORT 2019-12-12 [facility] 08:43:00-00:00 [facility] ([facility]) EMERGENCY PROVIDER REPORT REPORT#:[id number] REPORT STATUS: Signed DATE:12/12/19 TIME: 842 PATIENT: VIMAL BARROSO UNIT #: [id number] ROOM/BED: AGE: 44 SEX: M PCP PHYS: No Primary or Family Ph ysician SERVICE AUTHOR: Germania Engel NP * ALL edits or amendments must be made on the [employer]/computer document * HPI-URI/Cough/Cold General Confirmed Patient Yes [...] plant in the area and is from [facility] [place] [facility]. Patient reports he is been experiencing cough [...] Complaint COUGHING AND NASAL DRAINAGE [address] [place] Allergies Coded Allergies: No Known Allergies (11/27/19) Physical Exam Vital Signs Vital Signs First Documented: Result Date Time Pulse Ox 98 12/11 0833 B/P 147/36 / 0833 B/P Mean 73 12/11 0833 Temp [...] present, Erythema present, Warmth present, R c skilled nursing > L calf, L calf > R calf, Rupert's sign positive , Deformity proximal, Deform ity middle, Deformity distal, Open fracture present, Pulses distal absent, Pulses distal decreased, N euro deficit present. Left Leg/Calf Negative: Swelling present, Tenderness present, Ecchymosis present, Erythema present, Warmth present, R c skilled nursing > L calf, L calf > R [...] symptoms should prompt an immediate return to [facility] or the closest emergency department or [...] Germania Engel NP on at 0937 RPT #:[id number] END OF REPORT 2019-12-12 [facility] 08:43:00-00:00 [facility] ([facility]) EMERGENCY PROVIDER REPORT REPORT#:[id number] REPORT STATUS: Signed DATE:12/12/19 TIME: 842 PATIENT: VIMAL BARROSO UNIT #: [id number] ROOM/BED: AGE: 44 SEX: M PCP PHYS: No Primary or Family Ph ysician SERVICE AUTHOR: Germania Engel NP * ALL edits or amendments must be made on the [employer]/computer document * Germania Engel N. 12/12/19 0843: [...] plant in the area and is from [facility] [place] [facility]. Patient reports he is been experiencing cough [...] Complaint COUGHING AND NASAL DRAINAGE [address] [place] Allergies Coded Allergies: No Known Allergies [...] 12/11 0932 O2 Delivery Room air 12/11 0832 Temp 98.0 12/11 0932 Pulse 62 12/11 0932 Resp 16 12/11 0932 Review of Vital Signs Reviewed Focused PE [...] present, Erythema present, Warmth present, R c skilled nursing > L calf, L calf > R calf, Rupert's sign positive , Deformity proximal, Deform ity middle, Deformity distal, Open fracture present, Pulses distal absent, Pulses distal decreased, N euro deficit present. Left Leg/Calf Negative: Swelling present, Tenderness present, Ecchymosis present, Erythema present, Warmth present, R c skilled nursing > L calf, L calf > R calf, Rupert's sign positive , Deformity proximal, Deform ity middle, Deformity distal, Open fracture present, Pulses distal absent, Pulses distal decreased, N euro deficit present. Psychiatric Psychiatric Affect NL, Mood NL, Not suicidal, N ot homicidal, Thought content NL Interpretation Diagnostics Lab Results Interpretation Results Recent Impressions: RADIOLOGY - XR CHEST 2 V 12/12 0752 Report Impression - Status: SIGNED Entered: 12/12/2019913 [...] symptoms should prompt an immediate return to [facility] or the closest emergency department or [...] Saw Pt Alone I have reviewed the PA/COTTON PROGRAM TECHNICIAN's note and plan of car e. I was available for consultation as needed at al l times during the patient's visit in the emergency department. I did not hear about this patient du ring the visit. Electronically Signed by Germania Engel NP on at 0937 RPT #:[id number] END OF REPORT 2019-12-12 [facility] 08:43:00-00:00 [facility] ([facility]) EMERGENCY PROVIDER REPORT REPORT#:[id number] REPORT STATUS: Signed DATE:12/12/19 TIME: 0843 PATIENT: VIMAL BARROSO UNIT #: [id number] ROOM/BED: AGE: 44 SEX: M PCP PHYS: No Primary or Family Ph ysician SERVICE AUTHOR: Germania Engel COTTON PROGRAM TECHNICIAN * ALL edits or amendments must be made on the [employer]/computer document * Germania Engel N. 12/12/19 0843: [...] plant in the area and is from [facility] [place] [facility]. Patient reports he is been experiencing cough intermitt ently throughout the day with associated runny nose/ nasal congestion. Patient st ates he was seen and evaluated here 2 weeks ago for same symptoms and placed on cough medication. Thompson jimenezglynn states he does take the cough medication [...] Complaint COUGHING AND NASAL DRAINAGE [address] [place] Allergies Coded Allergies: No Known Allergies (11/27/19) Physical Exam Vital Signs Vital Signs First Documented: Result Date Time Pulse Ox 98 12/11 0833 B/P 147/36 12/11 08 B/P Mean 73 12/11 0833 Temp 98.6 12/11 832 Pulse 71 12/11 832 Resp 18 12/11 08 O2 Delivery Room air 12/12 931 Last Documented: Result Date Time Pulse Ox 96 12/12 931 B/P 131/86 12/12 931 B/P Mean 101 12/12 931 O2 Delivery Room air 12/12 931 Temp 98.0 12/12 931 Pulse 62 03/20 0932 Resp 16 12/11 0932 Review of Vital Signs Reviewed Focused PE [...] present, Erythema present, Warmth present, R c skilled nursing > L calf, L calf > R [...] Ox 98 12/11 0833 B/P 147/36 12/11 08 B/P Mean 73 12/11 08 Temp 98.6 12/11 832 Pulse 71 12/11 832 Resp 18 12/11 0833 O2 Delivery Room air 12/12 931 Last Documented: Result Date Time Pulse Ox 96 12/11 0932 B/P 131/86 12/11 0832 B/P Mean 101 12/11 0832 O2 Delivery [...] symptoms should prompt an immediate return to [facility] or the closest emergency department or [...] Saw Pt Alone I have reviewed the PA/COTTON PROGRAM TECHNICIAN's note and plan of car e. I was available for consultation as needed at al l times during the patient's visit in the emergency department. I did not hear about this patient du ring the visit. Electronically Signed by Germania Engel NP on at 0937 Electronically Signed by Diya Hernandez MD on at 1017 RPT #:[id number] END OF REPORT 2019-11-27 [facility] 07:48:00-00:00 [facility] ([facility]) EMERGENCY PROVIDER REPORT REPORT#:[id number] REPORT STATUS: Signed DATE:11/27/19 TIME: 0748 PATIENT: VIMAL BARROSO UNIT #: [id number] ROOM/BED: AGE: 43 SEX: M PCP PHYS: No Primary or Family Ph ysician SERVICE AUTHOR: Tamara Bishop * ALL edits or amendments must be made on the el [employer]/computer document * HPI-URI/Cough/Cold General Confirmed Patient Yes [...] 748 Influenza Virus Type B Antigen - CO MP NASAL 11/26 748 Influenza Virus Type A [...] the discharge instruct ions. ED Course Time 08 Patient Course Stable Safety Concerns Patient is [...] 66 11/26 740 Resp 18 11/26 740 All vital signs available at the time of this en try have been reviewed. Condition Stable Clinical Impression Clinical Impression Primary Impression: URI (upper respiratory infec tion) Time of Impression 846 Disposition Decision Discharge )( Discharged to Home Yes )( Time 846 )( Date 11/27/19 Discharge/Care Plan Counseled Regarding [...] symptoms should prompt an immediate return to [facility] or the closest emergency department or a call to 911. at 0850 RPT #:[id number] END OF REPORT 2019-11-27 [facility] 07:48:00-00:00 [facility] ([facility]) EMERGENCY PROVIDER REPORT REPORT#:[id number] REPORT STATUS: Signed DATE:11/27/19 TIME: 747 PATIENT: VIMAL BARROSO UNIT #: [id number] ROOM/BED: AGE: 43 SEX: M PCP PHYS: No Primary or Family Ph ysician SERVICE AUTHOR: Tamara Bishop * ALL edits or amendments must be made on the [employer]/computer document * Tamara Bishop 11/27/19 0748: HPI-URI/Cough/Cold [...] Documented: Result Date Time Pulse Ox 100 / 0736 B/P 144/74 / 0736 B/P Mean 97 / 0736 O2 Delivery Room air 11/26 0736 Temp 98.9 / 0736 Pulse 66 03/ 0736 Resp 18 / 0736 Last Documented: Result Date Time Pulse Ox 96 03/ 0903 B/P 133/72 03/ 0903 B/P Mean 92 /05 0903 O2 Delivery Room air 03/05 0903 Pulse 62 03/05 0903 Resp 17 03/ 0903 Temp 98.7 03/05 0741 Review of Vital Signs Reviewed Focused [...] 748 Influenza Virus Type B Antigen - CO MP NASAL 11/26 748 Influenza Virus Type A [...] 902 Resp 17 11/26 902 Temp 98.7 03/05 0741 All vital signs available at the [...] symptoms should prompt an immediate return to [facility] or the closest emergency department or a call to 911. Papa Griffin 11/27/19 1411: HPI-URI/Cough/Cold General Initial Greet Date/Time 11/27/19 0738 Patient Discharge Departure Supervising Physician Note MidLv Saw Pt Alone I have reviewed the PA/[employer]OT[employer] PROGRAM TECHNICIAN's note and plan of car e. I was available for consultation as needed at al l times during the patient's visit in the emergency department. I agree with the clinical impression , plan and disposition. at 0850 Electronically Signed by Papa Griffin DO on at 1411 RPT #:[id number] END OF REPORT 2017-10-21 MOUSTAPHA Norton - [...]
== END 2023-05-13 00:58 | disposition left against medical advice (07) ==
LOC: ER 00:01
DX: Z02.9 Encounter for administrative examinations, unspecified (principal)

== ENCOUNTER 2023-06-03 21:47 | Emergency (ER) | payer SELFPAY ==
--- OUTSIDE RECORDS SUMMARY | 2023-06-03 21:51 | XMS REPORT | Continuity of Care Document ---
:1975 Author Organization [facility] t Address [address] [place] [address] Care Team Providers Name Role Phone PCP, PATIENT DOES NOT HAVE A Primary Care Physician Unavailmiguel Reynolds MD, Arjun Cullen Attending Clinician [phone] ANGIE ROSAS Attending Clinician Unavailable Angie [...] Memoria index index 03:47:18 l (BMI) (BMI) [place] 45.0-49.9, 45.0-49.9, adult adult Active Problem 11/07/2017 Family Diagnostic Other Other Problem Active 2017-11-07 Enrique elkin chronic chronic 03:47:18 l pain pain [place] Active Problem 11/07/2017 Family Diagnostic No known [...] Known DA [facility] [place] [facility] No Known DA [facility] [place] 00:[facility]: [facility] N.Aden Feldman Active Info Not Enrique elkin Available 10-25 00:00: NO KNOWN Drug Active [facility] ALLERGIE Class ity of S [facility] Social History Social Habit Start Date Stop Date Quantity Comments Source Gender [facility] Tobacco use and 2022-06-18 2022-06-18 Smokeless [facility] exposure 00:00:00 00:00:00 tobacco non-user Hospital History of Social 2022-06-18 2022-06-[address] function 00:00:00 00:00:00 Hospital Exposure to 2022-05-20 2022-05-30 Not sure University SARS-CoV-2 (event) 00:00:00 20:57:00 [facility] Sex Assigned At [birth year] [facility] 00:00:00 [facility]:00 Hospital Smoking Status Start Date Stop Date Source Tobacco smoking consumption unknown [facility] Never smoked tobacco [facility] Medications Ordered Filled Start Stop [...] food) for up to 7 days. lidocaine 2022-0 2022- No 4mL Q.[id number] Apply 4 mL [facility] HCL 9-25 09-[id number] (lidocaine) 00:00: 04:59 3D 3 (three) [facility]osp[facility] 2 % 00 :00 times a l solution day for 3 days. Apply to cottonball and place it by toothache lidocaine 2-0 2022- No 4mL Q.[id number] Apply 4 mL [facility] HCL 9- 09-[id number] (lidocaine) 00:00: 04:59 3D 3 (three[facility]osp[facility] 2 % 00 :00 times a l solution day for 3 days. Apply to cottonball and place it by toothache lidocaine 2022-0 2022- No 4mL Q.[id number] Apply 4 mL [facility] HCL 9-25 09-[id number] (lidocaine) 00:00: 04:59 3D 3 (three) Hospita 2 % 00 :00 times a l solution day for 3 days. Apply to cottonball and place it by toothache lidocaine 2022-0 2022- No 4mL Q.[id number] Apply 4 mL [facility] HCL 9-25 09-[id number] (lidocaine) 00:00: 04:59 3D 3 (three) Hospita 2 % 00 :00 times a l solution day for 3 days. Apply to cottonball and place it by toothache lidocaine 2022-0 2022- No 4mL Q.[id number] Apply 4 mL [facility] HCL 9-18 06-[id number] (lidocaine) 00:00: 04:59 3D 3 (three) Hospita 2 % 00 :00 times a l solution day for 3 days. Apply to cottonball and place it by toothache lidocaine 2022-0 2022- No 4mL Q.[id number] Apply 4 mL [facility] HCL 9-18 06-[id number] (lidocaine) 00:00: 04:59 3D 3 (three) Hospita 2 % 00 :00 times a l solution day for 3 days. Apply to cottonball and place it by toothache lidocaine 2-0 2022- No 4mL Q.[id number] Apply 4 mL [facility] HCL 06-18-[id number] (lidocaine) 00:00: 04:59 3D 3 (three) Hospita 2 % 00 :00 times a l solution day for 3 days. Apply to cottonball and place it by toothache lidocaine 2022-0 2022- No 4mL Q.[id number] Apply 4 mL [facility] HCL 9-18 06-[id number] (lidocaine) 00:00: 04:59 3D 3 (three) Hospita 2 % 00 :00 times a l solution day for 3 days. Apply to cottonball and place it by toothache lidocaine 2022-0 2022- No 4mL Q.[id number] Apply 4 mL [facility] HCL 9-18 06-[id number] (lidocaine) 00:00: 04:59 3D 3 (three) Hospita 2 % 00 :00 times a l solution day for 3 days. Apply to cottonball and place it by toothache lidocaine 2022-0 2022- No 4mL Q.[id number] Apply 4 mL Method[facility] HCL 9-18 06-[id number] (lidocaine) 00:00: 04:59 3D 3 (three) Hospita 2 % 00 :00 times a l solution day for 3 days. Apply to cottonball and place it by toothache lidocaine 2022-0 2022- No 4mL Q.[id number] Apply 4 mL [facility] HCL 06-[id number] (lidocaine) 00:00: 04:59 3D 3 (three) Hospita 2 % 00 :00 times a l solution day for 3 days. Apply to cottonball and place it by toothache lidocaine 0 2021- No 4mL Q.[id number] Apply 4 mL [facility] HCL 06-[id number] (lidocaine) 00:00: 04:59 3D 3 [...] 1 at 2130, tablet CHRISTINA butalbital- Yes [id number] 1{tbl} Take 1 Univers acetaminoph 05-30 tablet [...] to 30 days. LISINOPRIL Yes Take by [facility] ers ORAL 8-16 mouth. ity of 21:45: [address] HYDROcodone Yes 1{tbl} Take 1 Un butch -acetaminop 8-16 tablet by ity of hen (NORCO) 21:45: mouth [place] 10-325 mg 20 every 6 Medical tablet (six) Branch hours as needed. LISINOPRIL Yes Take by [facility] ers ORAL 8-16 mouth. ity of 21:45: [address] HYDROcodone Yes 1{tbl} Take 1 Un butch -acetaminop 8-16 tablet by ity of hen (NORAppsee) 21:45: mouth [place] 10-325 mg 20 every 6 Medical tablet (six) Branch hours as needed. ketorolac 2021- No 30mg 30 mg, Unive rs (TORADOL) 04-23 Intramuscu ity of injection 21:15: 09:14 lar, ONCE, [place] 30 mg 00 :00 1 dose, On Medical [facility] 04/23/22 at 1615, Routine metoclopram 2021- No 10mg 10 mg, Uni vers darren HCl 04-23 Intramuscu ity o f (REGLAN) 20:15: 20:45 [place] :00 1 dose, On Medi shannan 10 mg [facility] 04/23/22 at 1515, CHRISTINA Hydrocodone Yes [...] Memoria 2-14 Irfan l 03:47: [place] 13 Meloxicam 2018-0 Yes [...] [facility] 00:[facility]: Memoria 00 l (LUF/LI V/SA) [facility] 2018-0 Yes [place] 1 tablet Enrique elkin 1-15 Irfan as needed l 00:00: Soma 2018-0 Yes [place] 1 tablet Memor ia 1-15 Irfan as needed l 00:00: Meloxicam 2018-0 Yes [place] 1 tablet Memoria 1-15 Irfan l 00:00: Mission 2018-0 Yes [place] 1 tablet Enrique elkin 1-15 Irfan as needed l 00:00: Soma 2018-0 Yes [place] 1 tablet Memor ia 1-15 Irfan as needed l 00:00: Meloxicam 2018-0 Yes [place] 1 tablet Memoria 1-15 Irfan l 00:00: Mission 2018-0 Yes [place] 1 tablet Enrique elkin 1-15 Irfan as needed l 00:00: Soma 2018-0 Yes [place] 1 tablet Memor ia 1-15 Irfan as needed l 00:00: Meloxicam 2018-0 Yes [place] 1 tablet Memoria 1-15 Irfan l 00:00: Mission 2018-0 Yes [place] 1 tablet Enrique elkin 1-15 Irfan as needed l 00:00: Soma 2018-0 Yes [place] 1 tablet Memor ia 1-15 Irfan as needed l 00:00: Meloxicam 2018-0 Yes [place] 1 tablet Memoria 1-15 Irfan l 00:00: Mission 2018-0 Yes [place] 1 tablet Enrique elkin 1-15 Irfan as needed l 00:00: Soma 2018-0 Yes [place] 1 tablet Memor ia 1-15 Irfan as needed l 00:00: Meloxicam 2018-0 Yes [place] 1 tablet Memoria 1-15 Irfan l 00:00: Mission 2018-0 Yes [place] 1 tablet Enrique elkin 1-15 Irfan as needed l 00:00: Soma 2018-0 Yes [place] 1 tablet Memor ia 1-15 Irfan as needed l 00:00: Meloxicam 2018-0 Yes [place] 1 tablet Memoria 1-15 Irfan l 00:00: Mission 2018-0 Yes [place] 1 tablet Enrique elkin 1-15 Irfan as needed l 00:00: Soma 2018-0 Yes [place] 1 tablet Memor ia 1-15 Irfan as needed l 00:00: Meloxicam 2018-0 Yes [place] 1 tablet Memoria 1-15 Irfan l 00:00: Meloxicam 2018-0 Yes [place] 1 tablet Memoria 1-15 Irfan l 00:00: Soma 2018-0 Yes [place] 1 tablet Memor ia 1-15 Irfan as needed l 00:00: Mission 2018-0 Yes [place] 1 tablet Enrique elkin 1-15 Irfan as needed l 00:00: Meloxicam 2018-0 Yes [place] 1 tablet Memoria 1-15 Irfan l 00:00: Soma 2018-0 Yes [place] 1 tablet Memor ia 1-15 Irfan as needed l 00:00: Mission 2018-0 Yes [place] 1 tablet Enrique elkin 1-15 Irfan as needed l 00:00: Mission 2018-0 Yes [place] 1 tablet Enrique elkin [...] Source Systolic blood 2022-05-31 01:59:00 128 mm[facility]Hg[facility] 2022-05-31 01:59:00 81 mm[facility]Hg] [facility] Heart rate 2022-05-31 01:59:00 78 /min [facility] Body temperature 2022-05-31 01:59:00 36.94 [facility] Respiratory rate 2022-05-31 01:59:00 18 /min [facility] Body height 2022-05-31 01:59:00 165.1 cm [facility] Body weight 2022-05-31 01:59:00 127.007 kg [facility] BMI 2022-05-31 01:59:00 46.59 kg/m2 [facility] [place] [facility] Oxygen saturation in 2022-05-31 01:59:00 95 /min [facility] Arterial blood by [facility] Pulse oximetry Branch Systolic blood 2022-05-10 02:39:00 148 mm[Hg] [facility] [place] [facility] Diastolic blood 2022-05-10 02:39:00 84 mm[Hg] [facility]ive [facility] [place] [facility] Heart rate 2022-05-10 02:39:00 70 /min [facility] [place] [facility] Body temperature 2022-05-10 02:39:00 37.56 Amisha [facility] [place] [facility] Respiratory rate 2022-05-10 02:39:00 18 /min [facility] [place] [facility] Body height 2022-05-10 02:39:00 162.6 cm [facility] [place] [facility] Body weight 2022-05-10 02:39:00 127.007 kg [facility] [place] [facility] BMI 2022-05-10 02:39:00 48.06 kg/m2 [facility] [place] [facility] Oxygen saturation in 2022-05-10 02:39:00 95 /min [facility] Arterial blood by [facility] Pulse oximetry Branch Body weight 2022-04-23 20:11:00 133.131 kg [facility] [place] [facility] BMI 2022-04-23 20:11:00 50.38 kg/m2 [facility] [place] [facility] Systolic blood 2022-04-23 20:09:00 140 mm[Hg] [facility] [place] [facility] Diastolic blood 2022-04-23 20:09:00 81 mm[Hg] [facility] [place] [facility] Heart rate 2022-04-23 20:09:00 66 /min [facility] [place] [facility] Body temperature 2022-04-23 20:09:00 36.72 Amisha [facility] [place] [facility] Respiratory rate 2022-04-23 20:09:00 17 /min [facility] [place] [facility] Body height 2022-04-23 20:09:00 162.6 cm [facility] [place] [facility] Oxygen saturation in 2022-04-23 20:09:00 97 /min [facility] Arterial blood by [facility] Pulse oximetry Branch Systolic blood 2022-06-18 15:20:24 157 mm[Hg] [facility] pressure Diastolic blood 2022-06-18 15:20:24 74 mm[Hg] [facility] pressure Heart rate 2022-06-18 15:20:24 53 /min [facility] Body temperature 2022-06-18 15:20:24 36.78 Amisha [facility] Respiratory rate 2022-06-18 15:20:24 16 /min [facility] Oxygen saturation in 2022-06-18 15:20:24 97 /min [facility] Arterial blood by Pulse oximetry Body height 2022-06-18 12:48:00 162.6 cm [facility] Body weight 2022-06-18 12:48:00 127.007 kg [facility] BMI 2022-06-18 12:48:00 48.06 kg/m2 [facility] Systolic blood 2022-05-21 00:33:00 132 mm[Hg] [facility] pressure Diastolic blood 2022-05-21 00:33:00 64 mm[Hg] [facility] pressure Heart rate 2022-05-21 00:33:00 64 /min [facility] Oxygen saturation in 2022-05-21 00:33:00 98 /min [facility] Arterial blood by Pulse oximetry Body temperature 2022-05-20 23:53:12 36.17 Amisha [facility] Respiratory rate 2022-05-20 23:53:12 18 /min [facility] Body height 2022-05-20 23:52:00 162.6 cm [facility] Body weight 2022-05-20 23:52:00 127.007 kg [facility] BMI 2022-05-20 23:52:00 48.06 kg/m2 [facility] Weight 2017-10-25 15:00:00 [facility] [place] Height 2017-10-25 15:00:00 [facility] [place] Temperature Oral (F) 2017-10-25 15:00:00 97.8 F [facility] Heart Rate 2017-10-25 15:00:00 [facility] [place] Diastolic (mm Hg) 2017-10-25 15:00:00 Mem orial [place] Systolic (mm Hg) 2017-10-25 15:00:00 Enrique rial [place] Body Temperature 2017-10-21 12:00:00 97.5 F [facility] (LUF/BLANCA/SA) Respiratory Rate 2017-10-21 12:00:00 20 /min [facility] (F/BLANCA/SA) O2% BldC Oximetry 2017-10-21 12:00:00 98 % [facility] (LUF/BLANCA/SA) BP Systolic 2017-10-21 12:00:00 132 mm[Hg] [facility] (LUF/BLANCA/SA) BP Diastolic 2017-10-21 12:00:00 78 mm[Hg] [facility] (LUF/BLANCA/SA) Height 2017-10-21 12:00:00 64 in [facility] (LUF/BLANCA/SA) Weight Measured 2017-10-21 12:00:00 282.19 lbs [facility] (LUF/BLANCA/SA) BMI (Body Mass 2017-10-21 12:00:00 48.7 [facility]) [facility] (LUF/BLANCA/SA) Weight 2017-10-08 15:45:00 [facility] Tavo Height 2017-10-08 15:45:00 [facility] Oral (F) 2017-10-08 15:45:00 96.8 F [facility] Heart Rate 2017-10-08 15:45:00 [facility] Tavo Diastolic (mm Hg) 2017-10-08 [facility] Systolic (mm Hg) 2017-10-08 15:45:00 [facility] Nuevo Procedures Procedure Date / Time Performing Clinician Source Performed CT MAXILLOFACIAL WO 2022-06-18 14:48:32 Abdi [facility] CONTRAST CONSENT/REFUSAL FOR 2022-05-31 01:55:15 Doctor Unassigned, No Un [facility] DIAGNOSIS AND TREATMENT Name Medical Branch CT CERVICAL SPINE WO 2022-05-21 01:24:51 DarciKhadar Kaycee [facility] CONTRAST CT HEAD WO CONTRAST 2022-05-21 01:15:40 DarciKaycee Rubalcava [facility] POC GLUCOSE 2022-05-21 00:33:[facility] NOTICE OF PRIVACY 2022-05-10 02:37:04 Doctor Unassigned, No [facility] [place] [facility] Name [facility] CONSENT/REFUSAL FOR 2022-05-10 02:35:02 Doctor Unassigned, No Un [facility] [place] [facility] Name Medical Branch CONSENT/REFUSAL FOR 2022-04-23 20:00:28 Doctor Unassigned, No Un [facility] [place] DI[facility]NOS[facility] TREATMENT Name Medical [facility] Plan of Care Planned Activity Planned Date Details Comments Source Future Scheduled 2023-05-28 [facility] Test 18:05:11 malignant neoplasm of colon (procedure) [code = 419842711] Future Scheduled 2023-05-28 [facility] Test 18:05:11 malignant neoplasm of colon (procedure) [code = 012180190] Future Scheduled 2023-05-28 [facility] Test 18:05:11 malignant neoplasm of colon (procedure) [code = 001597060] Future Scheduled 2023-05-28 Hepatitis C screening [facility] Test 18:05:11 (procedure) [code = 215342645] Future Scheduled 2023-05-28 COVID-19 VACCINE (3 - [facility] Test 18:05:11 Pfizer series) [code = COVID-19 VACCINE (3 - Pfizer series)] Future Scheduled 2023-05-28 [facility] Test 18:05:11 malignant neoplasm of colon (procedure) [code = 998986202] Future Scheduled 2023-05-28 [facility] Test 18:05:11 malignant neoplasm of colon (procedure) [code = 146330031] Future Scheduled 2023-05-28 INFLUENZA VACCINE [facility] 18:05:11 (#1) [code = INFLUENZA VACCINE (#1)] Future Scheduled 2023-04-27 [facility] Test 11:13:08 malignant neoplasm of colon (procedure) [code = 549738836] Future Scheduled 2023-04-27 [facility] Test 11:13:08 malignant neoplasm of colon (procedure) [code = 607483826] Future Scheduled 2023-04-27 [facility] Test 11:13:08 malignant neoplasm of colon (procedure) [code = 711073295] Future Scheduled 2023-04-27 [facility] 11:13:08 (procedure) [code = 418277385] Future Scheduled 2023-04-27 COVID-19 [facility]ACCINE ([facility] - [facility] 11:13:08 Pfizer series) [code = COVID-19 VACCINE (3 - Pfizer series)] Future Scheduled 2023-04-27 [facility] Test 11:13:08 malignant neoplasm of colon (procedure) [code = 639102447] Future Scheduled 2023-04-27 [facility] Test 11:13:08 malignant neoplasm of colon (procedure) [code = 954328819] Future Scheduled 2023-04-27 [facility]ZA VACCINE [facility] 11:13:08 [code = INFLUENZA VACCINE] Future Scheduled 2023-04-27 [facility] Test 11:13:08 malignant neoplasm of colon (procedure) [code = 290023445] Future Scheduled 2023-04-27 [facility] Test 11:13:08 malignant neoplasm of colon (procedure) [code = 499638550] Future Scheduled 2023-04-27 [facility] Test 11:13:08 malignant neoplasm of colon (procedure) [code = 678905030] Future Scheduled 2023-04-27 [facility] Test 11:13:08 (procedure) [code = 557934057] Future Scheduled 2023-04-27 [facility]13[facility] Pfizer series) [code = COVID-19 VACCINE (3 - Pfizer series)] Future Scheduled 2023-04-27 [facility] Test 11:13:08 malignant neoplasm of colon (procedure) [code = 582250168] Future Scheduled 2023-04-27 [facility] Test 11:13:08 malignant neoplasm of colon (procedure) [code = 385347866] Future Scheduled 2023-04-27 INFLUENZA VACCINE [facility] Test 11:13:08 [code = INFLUENZA VACCINE] Future Scheduled 2023-01-09 [facility] 02:12:34 (procedure) [code = 391221459] Future Scheduled 2023-01-09 [facility] 02:12:34 Booster for Pfizer series) [code = COVID-19 VACCINE (3 - Booster for Pfizer series)] Future Scheduled 2023-01-09 [facility] 02:12:34 [code = COLONOSCOPY SCREENING] Future Scheduled 2023-01-09 INFLUENZA VACCINE [facility] Test 02:12:34 [code = INFLUENZA VACCINE] Future Scheduled 2023-01-09 [facility] 02:12:34 (procedure) [code = 784884159] Future Scheduled 2023-01-09 COVID-19 VACCINE (3 - [...] [facility] Test 15:04:49 (procedure) [code = 049192849] Future Scheduled 2022-09-08 COVID-19 VACCINE ([facility] - [facility] 15:04:49 Booster for Pfizer series) [code = COVID-19 VACCINE (3 - Booster for Pfizer series)] Future Scheduled 2022-09-08 INFL[facility]ENZA VACCINE [facility] Test 15:04:49 [code = INFLUENZA VACCINE] Future Scheduled 2022-09-08 [facility] 15:04:49 (procedure) [code = 321944713] Future Scheduled 2022-09-08 COVID-19 VACCINE (3 - [facility] 15:04:49 Booster for Pfizer series) [code = COVID-19 VACCINE (3 - Booster for Pfizer series)] Future Scheduled 2022-09-08 INFL[facility]ENZA VACCINE [facility] Test 15:04:49 [code = INFLUENZA VACCINE] Future Scheduled 2022-09-08 [facility] 15:04:49 (procedure) [code = 065201360] Future Scheduled 2022-09-08 COVID-19 VACCINE ([facility] - [facility] 15:04:49 Booster for Pfizer series) [code = COVID-19 VACCINE (3 - Booster for Pfizer series)] Future Scheduled 2022-09-08 INFLUENZA VACCINE [facility] Test 15:04:49 [code = INFLUENZA VACCINE] Future Scheduled 2022-09-08 Hepatitis C screening [facility] Test 15:04:49 (procedure) [code = 182566169] Future Scheduled 2022-09-08 COVID-19 VACCINE (3 - [facility] Test 15:04:49 Booster for Pfizer series) [code = COVID-19 VACCINE (3 - Booster for Pfizer series)] Future Scheduled 2022-09-08 INFLUENZA VACCINE [email or web address] Test 15:04:49 [code = INFLUENZA VACCINE] Future Scheduled 2022-06-18 HEPATITIS B VACCINES Met [facility] Test 09:25:33 (1 of 3 - 3-dose series) [code = HEPATITIS B VACCINES (1 of 3 - 3-dose series)] Future Scheduled 2022-06-18 Hepatitis C screening [facility] Test 09:25:33 (procedure) [code = 538276894] Future Scheduled 2022-06-18 COVID-19 VACCINE (3 - [facility] Test 09:25:33 Booster for Pfizer series) [code = COVID-19 VACCINE (3 - Booster for Pfizer series)] Future Scheduled 2022-06-18 INFLUENZA VACCINE [email or web address] Test 09:25:33 [code = INFLUENZA VACCINE] Future Scheduled 2022-06-18 HEPATITIS B VACCINES Met [facility] Test 09:25:33 (1 of 3 - 3-dose series) [code = HEPATITIS B VACCINES (1 of 3 - 3-dose series)] Future Scheduled 2022-06-18 Hepatitis C screening [facility] Test 09:25:33 (procedure) [code = 288521538] Future Scheduled 2022-06-18 COVID-19 VACCINE (3 - [facility] Test 09:25:33 Booster for Pfizer series) [code = COVID-19 VACCINE (3 - Booster for Pfizer series)] Future Scheduled 2022-06-18 INFLUENZA VACCINE [email or web address] Test 09:25:33 [code = INFLUENZA VACCINE] Future Scheduled 2022-06-18 HEPATITIS B VACCINES Met [facility] Test 09:25:33 (1 of 3 - 3-dose series) [code = HEPATITIS B VACCINES (1 of 3 - 3-dose series)] Future Scheduled 2022-06-18 [facility] 09:25:33 (procedure) [code = 869775020] Future Scheduled 2022-06-18 [facility] 09:25:33 Booster for Pfizer series) [code = COVID-19 VACCINE (3 - Booster for Pfizer series)] Future Scheduled 2022-06-18 INFLUENZA VACCINE Method [facility] Test 09:25:33 [code = INFLUENZA VACCINE] Future Scheduled 2022-06-09 HEPATITIS B VACCINES Met [facility] Test 18:36:38 (1 of 3 - 3-dose series) [code = HEPATITIS B VACCINES (1 of 3 - 3-dose series)] Future Scheduled 2022-06-09 Hepatitis C screening [facility] Test 18:36:38 (procedure) [code = 131749841] Future Scheduled 2022-06-09 COVID-19 VACCINE (3 - [facility] Test 18:36:38 Booster for Pfizer series) [code = COVID-19 VACCINE (3 - Booster for Pfizer series)] Future Scheduled 2022-06-09 INFLUENZA VACCINE [email or web address] Test 18:36:38 [code = INFLUENZA VACCINE] Future Scheduled 2022-05-25 HEPATITIS B VACCINES Met [facility] Test 07:52:22 (1 of 3 - 3-dose series) [code = HEPATITIS B VACCINES (1 of 3 - 3-dose series)] Future Scheduled 2022-05-25 Hepatitis C screening [facility] Test 07:52:22 (procedure) [code = 134138382] Future Scheduled 2022-05-25 COVID-19 VACCINE (3 - [facility] Test 07:52:22 Booster for Pfizer series) [code = COVID-19 VACCINE (3 - Booster for Pfizer series)] Future Scheduled 2022-05-25 INFLUENZA VACCINE [email or web address] Test 07:52:22 [code = INFLUENZA VACCINE] Future Scheduled 2022-05-25 HEPATITIS B VACCINES Met [facility] Test 07:52:22 (1 of 3 - 3-dose series) [code = HEPATITIS B VACCINES (1 of 3 - 3-dose series)] Future Scheduled 2022-05-25 Hepatitis C screening [facility] Test 07:52:22 (procedure) [code = 934350906] Future Scheduled 2022-05-25 COVID-19 VACCINE (3 - [facility] Test 07:52:22 Booster for Pfizer series) [code = COVID-19 VACCINE (3 - Booster for Pfizer series)] Future Scheduled 2022-05-25 INFLUENZA VACCINE [email or web address] Test 07:52:22 [code = INFLUENZA VACCINE] Encounters Start End Encounter Admission Attending Care Care Encounter Source Date/Time Date/Time Type Type Clinicians Facility Department ID 2023-06-03 Outpatient [id number] 20D3-5 [facility]oria 21:49:39 5824-4CD0 24-5CD3-VE0 824-4CD0- B l -KZ48-9WY 5-8VQ4VN234 X22-8ZL6XG Tavo [id number] 99E 71081K 2023-05-13 Outpatient 2YR3PQ67- 8KZ1KR37-15 9FB8 AE55-2 Memoria 00:04:30 15V1-8O03 E3-8P36-878 7C9-4I73- 8 l -818B-D48 B-Y66V49997 18B-D48E11 Tavo J58745Q84 B77 601B77 2023-04-28 Outpatient SU456T24- DB804I20-8X BF11 8E44-4 Memoria 01:56:12 0E45-02N5 29-22Q5-94R Y21-04E0- 8 l -68I4-734 6-7162167WC 0Z3-060611 Tavo 8052YQ12K 55D 4BD55D 2023-02-13 Outpatient 55D8Y590- 70W4M445-H1 74F9 E380-D Mem[facility] 07:15:33 F214-3IE9 14-0FI3-IT4 414-4AA9- A l -KM7I-0PM A-9BGVT7X41 J7N-2YBXZ5 Tavo IF1I46F8R F4B A56F4B 2023-01-21 Outpatient 15B525V1- 20C873H0-8B 16F3 10F0-0 Memoria 18:12:35 6ZG0-06R4 C8-58Y6-94J EC8-41B6- 8 l -84FA-CDD A-TGM054TSY 4FA-CPF877 Tavo 075QFP094 063 FJC688 2022-12-02 Outpatient 50F891E4- 46B060C4-26 04F8 97C6-9 Memoria 21:50:02 977E-4F82 7E-3V71-053 77E-4F82- 8 l -8693-8E8 3-4M9X97544 693-8E8C26 Tavo S148035H3 6F6 1306F6 2022-11-12 Outpatient N4935QM6- [id number]-EX F702 5ED6-A [facility] 01:29:42 ADA0-43F6 A0-13H7-S31 DA0-43F6- A l -F253-81B 6-71A4M20PX 116-87F8D9 Tavo 9P19OOT7C C1D 5BBC1D 2022-10-16 Outpatient 3J661WKJ- 6A366ELD-8U 7A87 7EEE-1 [facility]oria 06:48:40 2RF6-9581 B4-4798-8A7 AB4-4798- 8 l -2M4M-24H F-39Q8ET759 C3I-61S6EN Tavo 9YO723K41 D64 698D64 2022-09-25 Outpatient 2NW0704M- 9KI0121G-71 3BD2 723F-9 Memoria 18:40:25 11S9-0Y33 D1-8F07-19W 1Z3-7J97- 8 l -89BD-1A5 D-0D4SAFL79 9BD-1A5DCD Tavo ZQLU243S2 6A3 E256A3 2022-07-11 Outpatient 58E8H45W- 20I6G55E-14 94C6 F00D-5 [facility]oria 20:33:16 34A1-91CB F4-47BE-8F8 8I3-50HJ- 8 l -2X4Z-67F F-78COGF107 Z4K-72HNKE Tavo SXS099WAA FAD 309FAD 2022-07-05 Outpatient 6757Q3O4- 6972P1H7-51 3842 B7D1-4 [facility] 21:55:55 75O2-63N7 E6-61U2-D76 7U5-46K1- A l -V78M-0J8 A-1R442LCX7 53A-1K964P Tavo 10NDC5Z5G F6F BA1F6F 2022-06-20 Outpatient OCHVQ9OL- NPVIU2GF-V8 FEAA B0FE-B [facility] 20:55:03 J89U-9DCK 9E-4FBC-9E6 39E-4FBC- 9 l -9L87-E93 0-R55UHB620 U53-Q50FLN Nuevo MBD6973W9 7B9 9867B9 2022-06-18 Outpatient [id number]- 4Q2656OV-4Y 4A16 41FC-3 Memoria 07:44:31 8O86-7BYT 17-4EED-9D8 Y05-2MPJ- 9 l -0B06-R9N 1-N1ZI089M5 L74-V6PQ70 Tavo J402E9O74 A09 2A0A09 2022-06-14 Outpatient 0D0250E2- 3F6352F7-F2 4F66 73A9-D Memoria 22:44:21 T15S-3M07 0A-8H42-292 90A-4A19- 9 l -9064-22B 4-01V091I9Z 064-04V415 Tavo 705Q8G546 120 S0I527 2022-06-08 Outpatient V1076QF3- W7294QQ6-W7 F051 4BD7-F Memoria 21:22:44 A27E-7HZ2 4B-1GM1-486 44B-4BC4- 8 l -819B-E8C B-O7Y18184H 19B-P4H663 Tavo 58710SR82 C63 53AC63 2022-06-03 Outpatient DNDQ65Q8- RUCU65T7-11 ABCB 93A3-4 Memoria 01:33:52 4565-43DE 65-43DE-92E 565-43DE- 9 l -77H7-971 7-595SR96JB 5A4-956ES6 Tvao DT96JT825 217 1ZH555 2022-05-30 Outpatient 429QZ455- 742EZ256-4R 114E F493-4 Memoria 20:55:52 9A34-153U 39-438E-9B8 K35-342Y- 9 l -1X33-6VR 0-3WMY6Q7FR T49-2GRI8W Tavo C8C2DIP66 F41 4BEF41 2022-05-20 Outpatient 2U43T71V- 4Y82A57I-3N 5C46 A21D-1 Memoria 18:55:15 1FAA-4CF3 AA-7AH8-12L FAA-4CF3- 8 l -80ED-A77 D-V61N83464 0ED-A77A25 Tavo [id number] 664 132015 5758-09-27 Outpatient [id number]- 9Z685095-03 5C72 5329-4 Memoria 14:21:52 66U6-7GIF F0-4CEA-948 1S4-3WAS- 9 l -9486-B77 6-Q85KMV6H3 486-B77BBD Tavo SIW7X04R1 4C4 1C14C4 2021-06-20 Outpatient 825PLQ64- 549VJF03-76 596A BE16-8 Memoria 14:21:45 8434-49AE 34-49AE-95B 434-49AE- 9 l -95BD-57D D-86JX23P8L 5BD-57DA06 Tavo O41I7N394 032 A7M422 2021-05-30 Outpatient [id number]- [id number]-CE CE68 9471-D Memoria 15:44:20 DAF5-4596 F5-4596-BFE AF5-4596- B l -BFE1-51A 1-63USG28WR FE1-51ACA1 Tavo UO62XW2GX 1BA 9CA1BA 2020-01-20 Inpatient [facility] [id number] [facility] 15:25:00 21 [facility] 2019-12-16 Inpatient [facility] [id number] [facility] 17:49:00 32 [facility] 2019-12-12 Inpatient [facility] [id number] [facility] 08:32:00 83 [facility] 2019-11-27 Inpatient [facility] [id number] [facility] 07:33:00 06 [facility] 2022-06-18 2022-06-18 Emergency Rodolfo 1.2.840.1 [id number] 2100 [id number] Methodi 07:52:00 10:32:[address] [facility] 3.430.2.7 [facility] .3.724801 l .8 2022-06-18 2022-06-18 Emergency Rodolfo, 1.2.840.1 [id number] 2100 985266 Methodi 07:52:00 10:32:[address] [facility] 3.430.2.7 [facility] .3.581981 l .8 2022-05-30 2022-05-30 Emergency X RALPH [facility] ERT [id number] Univers 21:02:00 21:53:00 ANGIE ibrahim [facility] 2022-05-30 2022-05-30 Emergency Ralph [facility] 1.2.747.216 3067 2067 Univers 21:02:00 21:53:00 Alisonradha RAFAELA 350.1.13.10 i [facility] 4.2.7.2.686 [facility] [id number] [address] 2022-05-20 2022-05-20 Emergency Bejarano-Kings 1.2.840.1 [id number] Methodi 19:29:00 21:04:[address]676[address] 3.430.2.7 Hospit a .3.635746 l .8 2022-05-20 2022-05-20 Travel 1.2.840.1 1.2.559.790 2793 043430 Methodi 00:00:00 00:00:[address] 3.430.2.7 0.2.7.3.698 Ho spita .3.022750 084.8 l .8 2022-05-09 2022-05-09 Emergency [facility] [id number] Univers 21:45:00 21:46:00 CHER ibrahim [facility] 2022-05-09 2022-05-09 Emergency Jessy [facility] 1.2.840.114 95 980862 Univers 21:45:00 21:46:00 Cher RUSSO 350.1.13.10 ity of [facility] 4.2.7.2.686 [facility] [id number] [facility] [address] 2022-04-23 2022-04-23 Emergency X RIDDLE, [facility] ERT [id number] Univers 15:11:00 15:52:00 STEPHANLEIDA it y of [facility] 2022-04-23 2022-04-23 Emergency [place], [facility] 1.2.536.653 3652 2241 Univers 15:11:00 15:52:00 Bo RUSSO 350.1.13.10 ity coco [facility] 4.2.7.2.686 [facility] [id number] [facility] [address] 2021-09-14 2021-09-14 Outpatient [place] [address] [place] 02:13[place] 02[place] [address] [facility] 2021-09-08 2021-09-08 Outpatient FERGUSON_JO [facility] 117 94 [place] 02:19:00 02:19[place] [address] [facility] 2017-11-01 2017-11-01 Outpatient Family Family 709946 eClinic 10:47:00 10:47:00 [facility] 2017-10-25 2017-10-25 Outpatient Family Family 847784 eClinic 09:00:00 09:00:00 [facility] Clinic 2017-10-21 2017-10-21 PAIN IN NIKKI [facility] [id number] 11:51:00 14:48:00 [facility] 2017-10-21 2017-10-21 PAIN IN NIKKI [facility] [id number] [facility] 11:51:00 14:48:00 [facility], [address], (LUF/[place] [address] 2017-10-08 2017-10-08 Outpatient Family Family 761560 eClinic 09:45:00 09:45:00 [facility] Clinic Results Test Description Test Time Test Comments Results Result Comments Source POC glucose 2022-05-21 00:34:00 Test Item Value Reference Range Interpretation Comme nts POC glucose (test code = 33938-4) 217 mg/dL 65-100 H Softlines Supervisor Name: Zach BinDoroteogena ID: [id number] Lab Interpretation (test code = Abnormal 23997-4) [facility] [id number] 00:34:00 Test Item Value Reference Range Interpretation Comments POC glucose (test code = 217 mg/dL 65-100 H Ope rator Name: Zach 83586-7) BinosDevice ID: [id number] Lab Interpretation (test Abnormal code = 16909-6) [facility] [id number] 00:34:00 Test Item Value Reference Range Interpretation Comments POC glucose (test code = 217 mg/dL 65-100 H Ope rator Name: Zach 70068-2) BinosDevice ID: [id number] Lab Interpretation (test Abnormal code = 59840-8) [facility] cnzpjrs1648-05-50 00:34:00 Test Item Value Reference Range Interpretation Comments POC glucose (test code = 217 mg/dL 65-100 H Ope rator Name: Zach 60079-3) BinosDevice ID: [id number] Lab Interpretation (test Abnormal code = 83365-3) [facility] uhqrtll9581-99-50 00:34:00 Test Item Value Reference Range Interpretation Comments POC glucose (test code = 217 mg/dL 65-100 H Ope rator Name: Zach 53944-1) BinosDevice ID: [id number] Lab Interpretation (test Abnormal code = 80232-8) [facility] qfxnhyc4946-81-19 00:34:00 Test Item Value Reference Range Interpretation Comments POC glucose (test code = 217 mg/dL 65-100 H Ope rator Name: Zach 63813-9) BinosDevice ID: [id number] Lab Interpretation (test Abnormal code = 62109-4) [facility] tkrjdly9796-40-00 00:34:00 Test Item Value Reference Range Interpretation Comments POC glucose (test code = 217 mg/dL 65-100 H Ope rator Name: Zach Valdes-7) BinosDevice ID: [id number] Lab Interpretation (test Abnormal code = 47317-4) [facility] feoepci2987-73-01 00:34:00 Test Item Value Reference Range Interpretation Comments POC glucose (test code = 217 mg/dL 65-100 H Ope rator Name: Zach Johnston) BinosDevice ID: [id number] Lab Interpretation (test Abnormal code = 44319-7) [facility]2022-08-28 00:34:00 Test Item Value Reference Range Interpretation Comments POC glucose (test code = 217 mg/dL 65-100 H Ope rator Name: Zach Johnston) BinosDevice ID: [id number] Lab Interpretation (test Abnormal code = 02877-9) [facility]2022-08-28 00:34:00 Test Item Value Reference Range Interpretation Comments POC glucose (test code = 217 mg/dL 65-100 H Ope rator Name: Zach Johnston) BinosDevice ID: [id number] Lab Interpretation (test Abnormal code = 13968-5) [facility]2022-08-28 00:34:00 Test Item Value Reference Range Interpretation Comments POC glucose (test code = 217 mg/dL 65-100 H Ope rator Name: Zach Johnston) BinosDevice ID: [id number] Lab Interpretation (test Abnormal code = 39473-1) [facility]2022-08-28 00:34:00 Test Item Value Reference Range Interpretation Comments POC glucose (test code = 217 mg/dL 65-100 H Ope rator Name: Zach Lieberman7) BinosDevice ID: [id number] Lab Interpretation (test Abnormal code = 83416-3) [facility]2022-08-28 00:34:00 Test Item Value Reference Range Interpretation Comments POC glucose (test code = 217 mg/dL 65-100 H Ope rator Name: Zach Lieberman7) BinosDevice ID: [id number] Lab Interpretation (test Abnormal code = 09694-6) [facility]2022-08-28 00:34:00 Test Item Value Reference Range Interpretation Comments POC glucose (test code = 217 mg/dL 65-100 H Ope rator Name: Zach 99173-3) Avery ID: [id number] Lab Interpretation (test Abnormal code = 70373-5) [facility]- [facility] HEAD/BRAIN W/O [id number] 18:19:00 Patient Name: VIMAL BARROSO Unit No: [id number] EXAMS: CPT CODE: [id number] CT HEAD/BRAIN W/O CONT 33357 CLINICAL INFORMATION: Moderate frontal headaches. Coughing. Dictation [...] 45.04 DLP: 757.79 Trnscrpt: 12/16/2019 (1818) [facility] NAME: VIMAL BARROSO [address] [place] [address] PHYS: Germania [place]as [place], [place] [address] : 1975 AGE:44 SEX: M LOC: B.ERS PHONE #: [phone] EXAM DATE: 12/16/2019 STATUS: PRE ER FAX #: [phone] RAD #: D/C DT PAGE 1 Signed Report Patient Name: VIMAL BARROSO Unit No: [id number] EXAMS: CPT CODE: [id number] CT HEAD/BRAIN W/O CONT 38376 (Continued) Orig Print D/T: S: 12/16/2019 (1821) LORETA Lopez NAME: VIMAL BARROSO [address] [place] [address] PHYS: Germania Isaacs [place] [id number] : 1975 AGE: 44 SEX: M LOC: EMILY PHONE #: [phone] EXAM DATE: 12/16/2019 STATUS: PRE ER FAX #: [phone] RAD #: D/C DT PAGE 2 Signed Report- XR CHEST 2 [id number] 09:11:00 FAX: Myron Engelcaridad EASON [phone] [place]: St: REG Patient Name: VIMAL BARROSO Unit No: [id number] EXAMS: CPT CODE: [id number] XR CHEST 2 V 24922 - XR CHEST 2 V LOCATION: T18 [...] 12/12/2019 (913) LORETA Lopez NAME: VIMAL BARROSO [address] [place] [address] PHYS: Myron Isaacscy [place], [place] [address] : 1975 AGE: 44 SEX: M LOC: EMILY PHONE #: [phone] EXAM DATE: 12/12/2019 STATUS: REG ER FAX #: [phone] RAD NO: DC Dt: PAGE 1 Signed ReportSPINE LUMBAR HOVZ2102-94-23 13:37:[address] [address]JRCBTBMCWR IMAGING REPORTPatient Name: Llii BARROSO of Service: [id number]: 41 Sex: M Order #: [id number] Room: SUMMIT CAMPUSDOB: 1975 X-Ray Number: [id number] Record Number: [id number] Hospital Number: [id number] Physician: Agatha CROW Physician: RUBY TREVIÑO LUMBAR [...] 13:34:45 Notes Date/Time Note Provider Source 2020-01-20 [facility] 15:31:00-00:00 [facility] ([facility]) EMERGENCY PROVIDER REPORT REPORT#:[id number] REPORT STATUS: Signed DATE:01/20/20 TIME: 153 PATIENT: VIMAL BARROSO UNIT #: [id number] ROOM/BED: AGE: 44 SEX: M PCP PHYS: No Primary or Family Ph ysician SERVICE AUTHOR: Jadiel Young DO * ALL edits or amendments must be made on the el [employer]/computer document * HPI-Headache General Initial Greet Date/Time [...] Room air 01/19 152 Temp 98.2 01/19 152 Pulse 71 01/19 1526 Resp 16 01/19 1526 Last Documented: Result Date Time Pulse Ox 98 01/19 1526 B/P 141/83 01/19 1526 B/P Mean 102 01/19 1526 O2 Delivery Room air 01/19 1526 Temp 98.2 04/28 1526 Pulse 71 01/19 1526 Resp 16 [...] symptoms should prompt an immediate return to [facility] or the closest emergency department or a call to 911. at 1542 RPT #:[id number] END OF REPORT 2019-12-16 [facility] 17:52:00-00:00 [facility] (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 Impression By: Barbara Tee MD Re-Evaluation [facility] )( Re-Evaluation/Progress #1 Text/Dict Note On [...] kerry with discharge poc.. Time of Eval 184 Re-Eval Status Resolved Eval Following Treatment Pt. [...] )( Discharged to Home Yes )( Time 1849 )( Date 12/16/19 Discharge/Care Plan Counseled Regarding [...] symptoms should prompt an immediate return to [facility] or the closest emergency department or [...] Germania Engel NP on at 0007 RPT #:[id number] END OF REPORT 2019-12-16 [facility] 17:52:00-00:[address] [facility] Jessica ([facility]) EMERGENCY PROVIDER REPORT REPORT#:[id number] REPORT STATUS: Signed DATE:12/16/19 TIME: 1751 PATIENT: VIMAL BARROSO UNIT #: [id number] ROOM/BED: AGE: 44 SEX: M PCP PHYS: No Primary or Family Ph ysician SERVICE AUTHOR: Germania Engel BUSINESS ENGLISH INSTRUCTOR * ALL edits or amendments must be made on the [employer]/computer document * Germania Engel N. 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 weakness, chills, vision [...] Result Date Time Pulse Ox 96 12/15 1749 B/P 154/111 12/15 1749 B/P Mean 125 12/15 1749 O2 Delivery [...] SCAN - CT HEAD/BRAIN W/O CONT 12/15 180 Report Impression - Status: SIGNED Entered: 12/16/2019 790 IMPRESSION: Unremarkable skull and brain, with n [...] Status Admin Acetaminophen 1,000 MG X1ED STA 12/16 1755 DC 0 12/15 PO 12/15 Ibuprofen 800 MG X1ED STA 12/16 1751 CAN PO 12/15 175 Patient Discharge Departure Vital Signs/Condition Vital Signs First Documented: Result Date Time Pulse Ox 96 12/15 1749 B/P 154/111 12/15 1749 B/P Mean 125 12/15 1749 O2 Delivery Room air 12/15 1749 Temp 99.4 12/15 1749 Pulse 91 12/15 175 Resp 20 12/15 175 Last Documented: Result Date Time Pulse Ox 97 12/16 1903 B/P 150/104 12/16 1903 B/P Mean 119 12/15 190 O2 Delivery [...] symptoms should prompt an immediate return to [facility] or the closest emergency department or [...] were reviewe d. I agree with this PA/inseam leveler findings, exam and plan. Electronically Signed by Germania Engel NP on at 0007 at 0030 RPT #:[id number] END OF REPORT 2019-12-12 [facility] 08:43:00-00:00 [facility] (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 Patient reports he is been experiencing cough [...] Complaint COUGHING AND NASAL DRAINAGE [address] [place] Allergies Coded Allergies: No Known Allergies (11/27/19) [...] 71 12/11 832 Resp 18 12/11 832 Review of Vital Signs Reviewed Focused PE [...] present, Erythema present, Warmth present, R [facility] > L calf, L calf > R [...] 71 12/11 0833 Resp 18 12/11 0833 All vital signs available at the time [...] physician or other designated or consulting phys barbaraan as outlined in the discharge instructions. The [...] symptoms should prompt an immediate return to [facility] or the closest emergency department or [...] Germania Engel NP on at 0937 RPT #:[id number] END OF REPORT 2019-12-12 [facility] 08:43:00-00:00 [facility] ([facility]) EMERGENCY PROVIDER REPORT REPORT#:[id number] REPORT STATUS: Signed DATE:12/12/19 TIME: 842 PATIENT: VIMAL BARROSO UNIT #: [id number] ROOM/BED: AGE: 44 SEX: M PCP PHYS: No Primary or Family Ph ysician SERVICE AUTHOR: Germania Engel NP * ALL edits or amendments must be made on the el [employer]/computer document * Germania Engel. 12/12/19 0843: HPI-URI/Cough/Cold General Confirmed Patient Yes [...] male who reports no past medical his tornickie presents to the ER for complaints of dry cough x2 weeks intermi ttently. 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 Patient reports he is been experiencing cough [...] Complaint COUGHING AND NASAL DRAINAGE 1 [place] Allergies Coded Allergies: No Known Allergies (11/27/19) [...] present, Erythema present, Warmth present, R c [facility] > L calf, L calf > R [...] symptoms should prompt an immediate return to [facility] or the closest emergency department or [...] Saw Pt Alone I have reviewed the PA/BUSINESS ENGLISH INSTRUCTOR's note and plan of car e. I was available for consultation as needed at al l times during the patient's visit in the emergency department. I did not hear about this patient du ring the visit. Electronically Signed by Germania Engel NP on at 0937 RPT #:[id number] END OF REPORT 2019-12-12 [facility] 08:43:00-00:00 [facility] ([facility]) EMERGENCY PROVIDER REPORT REPORT#:[id number] REPORT STATUS: Signed DATE:12/12/19 TIME: 0843 PATIENT: VIMAL BARROSO UNIT #: [id number] ROOM/BED: AGE: 44 SEX: M PCP PHYS: No Primary or Family Ph ysician SERVICE AUTHOR: Germania Engel BUSINESS ENGLISH INSTRUCTOR * ALL edits or amendments must be made on the [employer]/computer document * Germania Engel N. 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 Patient reports he is been experiencing cough [...] Complaint COUGHING AND NASAL DRAINAGE 1 [place] Allergies Coded Allergies: No Known Allergies (11/27/19) Physical Exam Vital Signs Vital Signs First Documented: Result Date Time Pulse Ox 98 12/11 0833 B/P 147/36 12/11 0833 B/P Mean 73 12/11 0833 Temp 98.6 12/11 0833 Pulse 71 12/11 0833 Resp 18 12/11 0833 O2 Delivery Room air 12/11 0832 Last Documented: Result Date Time Pulse Ox 96 12/11 0932 B/P 131/86 12/11 0932 B/P Mean 101 12/11 0932 O2 Delivery Room air 12/12 931 Temp 98.0 12/11 0932 Pulse 62 12/11 [...] present, Erythema present, Warmth present, R c [facility] > L calf, L calf > R [...] Ox 98 12/11 08 B/P 147/36 12/11 08 B/P Mean 73 12/11 08 Temp 98.6 12/11 08 Pulse 71 12/11 08 Resp 18 12/11 08 O2 Delivery Room [...] symptoms should prompt an immediate return to [facility] or the closest emergency department or [...] Saw Pt Alone I have reviewed the PA/BUSINESS ENGLISH INSTRUCTOR's note and plan of tanner avery. I was available for consultation as needed at al l times during the patient's visit in the emergency department. I did not hear about this patient du ring the visit. Electronically Signed by Germania Engel NP on at 0937 Electronically Signed by Diya Hernandez MD on at 1017 RPT #:[id number] END OF REPORT 2019-11-27 [facility] 07:48:00-00:00 [facility] ([facility]) EMERGENCY PROVIDER REPORT REPORT#:[id number] REPORT STATUS: Signed DATE:11/27/19 TIME: 07 PATIENT: VIMAL BARROSO UNIT #: [id number] ROOM/BED: AGE: 43 SEX: M PCP PHYS: No Primary or Family Ph ysician SERVICE AUTHOR: Tamara Bishop * ALL edits or amendments must be made on the [employer]/computer document * HPI-URI/Cough/Cold General Confirmed Patient Yes [...] B/P 144/74 11/27 735 B/P Mean 97 11/26 0636 O2 Delivery Room air 11/27 735 Temp 98.9 11/26 0636 Pulse 66 / 0736 Resp 18 /01 2836 Last Documented: Result Date Time Pulse Ox 98 11/26 0741 B/P 131/70 / 0741 B/P Mean 90 /01 2841 O2 Delivery Room air 11/26 740 Temp 98.7 / 0741 Pulse 66 / 0741 Resp 18 / 0741 Review of Vital Signs Reviewed Focused [...] symptoms should prompt an immediate return to [facility] or the closest emergency department or a call to 911. at 0850 RPT #:[id number] END OF REPORT 2019-11-27 [facility] 07:48:00-00:00 [facility] ([facility]) EMERGENCY PROVIDER REPORT REPORT#:[id number] REPORT STATUS: Signed DATE:11/27/19 TIME: 747 PATIENT: VIMAL BARROSO UNIT #: [id number] ROOM/BED: AGE: 43 SEX: M PCP PHYS: No Primary or Family Ph ysician SERVICE AUTHOR: Tamara Bishop * ALL edits or amendments must be made on the [employer]/computer document * Tamara Bishop 11/27/19 0748: HPI-URI/Cough/Cold [...] 17 11/26 902 Temp 98.7 11/26 0741 Review of Vital [...] B/P 144/74 11/26 0636 B/P Mean 97 11/27 735 O2 Delivery Room air 11/27 735 Temp 98.9 11/27 735 Pulse 66 11/27 735 Resp 18 11/27 735 Last Documented: Result Date Time Pulse Ox 96 11/26 0803 B/P 133/72 11/26 0803 B/P Mean 92 11/26 0803 O2 Delivery Room air 11/26 902 Pulse 62 11/26 0903 Resp 17 11/26 902 Temp 98.7 11/26 0741 All vital signs available at the time of this en try have been reviewed. Condition Stable Clinical Impression Clinical Impression Primary Impression: URI (upper respiratory infec tion) Time of Impression 08 Disposition Decision Discharge )( Discharged to Home [...] symptoms should prompt an immediate return to [facility] or the closest emergency department or a call to 911. Papa Griffin 11/27/19 1411: HPI-URI/Cough/Cold General Initial Greet Date/Time 11/27/19 0738 Patient Discharge Departure Supervising Physician Note Arturo Saw Pt Alone I have reviewed the PA/BUSINESS ENGLISH INSTRUCTOR's note and plan of car e. I was available for consultation as needed at al l times during the patient's visit in the emergency department. I agree with the clinical impression , plan and disposition. at 0850 Electronically Signed by Papa Griffin DO on at 1411 RPT #:[id number] END OF REPORT 2017-10-21 [facility] Kamille - 14:48:00-00:00 Discharge Instructions 2 Memoria l [...]
--- NOTE | 2023-06-03 22:37 | ER ---
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 I tried to catch myself but the right side of my body works. I really just want a work note". Coronavirus screen: At this time, the client does not indicate any symptoms associated with coronavirus-19. Ebola Screen: No symptoms or risks identified at this time. Initial Sepsis Screen: Does the patient meet any 2 criteria? No. Patient's initial sepsis screen is negative. Does the patient have a suspected source of infection? No. Patient's initial sepsis screen is negative. Risk Assessment: Do you want to hurt yourself or someone else? Patient reports no desire to harm self or others. Onset of symptoms was June 03, 2023. 22:31 Method Of Arrival: Ambulatory as6 22:31 Acuity: LIZBETH 5 as6 Triage Assessment: 22:45 General: Appears in no apparent distress. Behavior is calm, cooperative. Pain: as6 Complains of pain in anterior aspect of right shoulder and posterior aspect of right shoulder. Respiratory: Respiratory effort is even, unlabored. Musculoskeletal: Circulation, motion, and sensation intact. Historical: - Allergies: 22:34 Iodine; as6 22:34 PENICILLINS; as6 22:34 SHELLFISH; as6 - PMHx: 22:34 Chronic pain; headache; Hypertensive disorder; as6 - PSHx: 22:34 facial reconstruction; Spinal surgery; as6 - Immunization history:: Client reports receiving the 2nd dose of the Covid vaccine, pfizer. - Social history:: Smoking status: Patient denies any tobacco usage or history of. Screenin:46 [facility] ED Fall Risk Assessment (Adult) Score/Fall Risk Level 0 - 2 = Low Risk. Abuse as6 screen: Denies threats or abuse. Denies injuries from another. Nutritional screening: No deficits noted. Tuberculosis screening: No symptoms or risk factors identified. Vital Signs: 22:31 BP 126 / 78; Pulse 59; Resp 18 S; Temp 97(TE); Pulse Ox 95% on R/A; Weight 131.54 kg as6 (R); Height 5 ft. 4 in. (R); Pain 6/10; 22:31 Body Mass Index 49.78 (131.54 kg, 162.56 cm) as6 22:31 Pain Scale: Adult as6 ED Course: 21:50 Patient arrived in ED. mr 22:00 Maritza Rose PA-C is PHCP. sb4 22:00 Jorge Rivera MD is Attending Physician. sb4 22:31 Olayinka Hollis, RN is Primary Nurse. as6 22:33 Triage completed. as6 22:34 Arm band placed on. as6 22:46 Bed in low position. Call light in reach. Provided Education on: discharge teaching . as6 22:46 No provider procedures requiring assistance completed. Patient did not have IV access as6 during this emergency room visit. Administered Medications: No medications were administered Medication: 22:47 VIS not applicable for this client. as6 Outcome: 22:36 Discharge ordered by . sb4 22:46 Discharged to home ambulatory. as6 22:46 Condition: stable 22:46 Discharge instructions given to patient, Instructed on discharge instructions, follow up and referral plans. Demonstrated understanding of instructions, follow-up care. 22:47 Patient left the ED. as6 Signatures: Geo Kristen huntley Olayinka Hollis, RN RN as6 Maritza Rose PA-C PA-C sb4
--- NOTE | 2023-06-03 22:37 | EDPHYS ---
Physician Documentation [facility] Name: Ruben Alamo Age: 47 yrs Sex: Male : 1975 Arrival Date: 06/03/2023 Time: 21:47 Bed DIS3 Private MD: ED Physician Jorge Rivera HPI: 06/03 23:01 This 47 yrs old Black Male presents to ER via Ambulatory with complaints of sb4 neck/shoulder pain. 23:01 Onset: The symptoms/episode began/occurred today. sb4 23:04 patient states that he was standing on a table today installing a ceiling fan when he sb4 lost his footing and started to fall down. he was able to slow it down but ended up landing on his right side. no loc or significant pain. he is complaining of some soreness to his right neck and shoulder. Historical: - Allergies: 22:34 Iodine; as6 22:34 PENICILLINS; as6 22:34 SHELLFISH; as6 - PMHx: 22:34 Chronic pain; headache; Hypertensive disorder; as6 - PSHx: 22:34 facial reconstruction; Spinal surgery; as6 - Immunization history:: Client reports receiving the 2nd dose of the Covid vaccine, [employer]. - Social history:: Smoking status: Patient denies any tobacco usage or history of. ROS: 23:04 Constitutional: Negative for fever, chills, and weight loss. sb4 23:04 MS/extremity: Positive for pain, of the right side of neck. 23:04 All other systems are negative. Exam: 23:04 Constitutional: This is a well developed, well nourished patient who is awake, alert, sb4 and in no acute distress. 23:04 Musculoskeletal/extremity: ROM: full active range of motion, full passive range of motion, Circulation is intact in all extremities. the right arm Sensation intact. Vital Signs: 22:31 BP 126 / 78; Pulse 59; Resp 18 S; Temp 97(TE); Pulse Ox 95% on R/A; Weight 131.54 kg as6 (R); Height 5 ft. 4 in. (R); Pain 6/10; 22:31 Body Mass Index 49.78 (131.54 kg, 162.56 cm) as6 22:31 Pain Scale: Adult as6 MDM: 22:03 Patient medically screened. sb4 23:04 Differential Diagnosis muscle strain, contusion, fracture. Data reviewed: vital signs, sb4 nurses notes, and as a result, I will discharge patient. Test considered but Not performed: X-ray: patient declines imaging at this time. is requesting work note. Counseling: I had a detailed discussion with the patient and/or guardian regarding the historical points, exam findings, and any diagnostic results supporting the discharge/admit diagnosis, to return to the emergency department if symptoms worsen or persist or if there are any questions or concerns that arise at home. Administered Medications: No medications were administered Disposition: 06/04 02:07 Co-signature as Attending Physician, Jorge Rivera MD I agree with the assessment sp4 and plan of care. I reviewed the patient's care provided by the Advanced Practice Provider and agree with the diagnosis and treatment plan. Disposition Summary: 06/03/23 22:36 Discharge Ordered Location: Home sb4 Problem: new sb4 Symptoms: are unchanged sb4 Condition: Stable sb4 Diagnosis - Fall (on)(from) incline sb4 - Strain of muscle, fascia and tendon at neck level sb4 Followup: sb4 - With: Private Physician - When: As needed - Reason: Recheck today's complaints, Continuance of care, Re-evaluation by your physician Discharge Instructions: - Discharge Summary Sheet sb4 Forms: - Work release form sb4 - Medication Reconciliation Form sb4 - Thank You Letter sb4 - Antibiotic Education sb4 - Prescription Opioid Use sb4 - Patient Portal Instructions sb4 - Leadership Thank You Letter sb4 Signatures: Olayinka Hollis RN RN as6 Maritza Rose PA-C PA-C sbJorge Grove MD MD sp4
== END 2023-06-03 22:47 | disposition home or self-care (01) ==
LOC: ER 21:47
DX: S16.1XXA Strain of muscle, fascia and tendon at neck level, initial encounter (principal); W17.89XA Other fall from one level to another, initial encounter; Y93.89 Activity, other specified; Y92.019 Unspecified place in single-family (private) house as the place of occurrence of the external cause; I10 Essential (primary) hypertension; G89.29 Other chronic pain; Z88.0 Allergy status to penicillin; Z88.8 Allergy status to other drugs, medicaments and biological substances; Z91.013 Allergy to seafood
CPT/HCPCS: 99282

== ENCOUNTER 2023-07-02 08:42 | Emergency (ER) | payer SELFPAY ==
--- OUTSIDE RECORDS SUMMARY | 2023-07-02 08:49 | XMS REPORT | Continuity of Care Document ---
:1975 Author Organization [facility] t Address [address] [place] [address] Care Team Providers Name Role Phone PCP, PATIENT DOES NOT HAVE A Primary Care Physician UnavailArjun Castillo MD Attending Clinician [phone] ALBIN ROSAS Attending Clinician Unavailable Albin Purvis [...] rs active active ity of problems problems [facility] Allergies, Adverse Reactions, Alerts Allergy Allergy Status [...] to drug Shellfis Propensi Active Anaphylaxis M kaiodi h ty to 06-18 st Derived adverse 00:00: Hospita reaction 00 l s to drug SHELLFIS DRUG Active Unknown-Cmnt Un butch H INGREDI 8-16 ity of DERIVED 00:00: Medical Branch Shellfis Propensi Active Unknown - Uni vers h ty to See comments 16 ity of Derived adverse 00:00: [place] reaction 00 Medical s Branch No Known DA Active U 2020-0 [facility]05 [place] 00:00: Region [facility] No Known DA Active U [facility] Allergie 3-05 [place] 00:00: Region 00 [facility] N.BennyA. Doni. Active Info Not Enrique elkin Available 10-25 00:00: 00 NO KNOWN Drug Active Univers ALLERGIE Class ity of S [facility] Social History Social Habit Start Date Stop Date Quantity Comments Source Gender identity [facility] Tobacco use and 2022-06-18 2022-06-18 Smokeless [facility] 00:00:00 00:00:00 tobacco non-user Hospital History of Social 2022-06-18 2022-06-[address] function 00:00:00 00:00:00 Hospital Exposure to 2022-05-20 2022-05-30 Not sure [place] [facility]-CoV-2 (event) 00:00:00 20:57:00 [facility] Sex Assigned At [birth year] [facility]00 [facility] Smoking Status Start Date Stop Date Source Tobacco smoking consumption unknown [facility] Never smoked tobacco [facility] Medications Ordered Filled Start Stop [...] to 7 days. lidocaine 2021-2021- No 4mL Q.[id number] Apply 4 mL Methodi HCL 06-[id number] (lidocaine) 00:00: 04:59 3D 3 (three) Hospita 2 % 00 :00 times a l solution day for 3 days. Apply to cottonball and place it by toothache lidocaine 2021-0 2022- No 4mL Q.[id number] Apply 4 mL Methodi HCL 9-25 -[id number] (lidocaine) 00:00: 04:59 3D 3 (three) Hospita 2 % 00 :00 times a l solution day for 3 days. Apply to cottonball and place it by toothache lidocaine 2021-0 202- No 4mL Q.[id number] Apply 4 mL Methodi HCL 9-25 -[id number] (lidocaine) 00:00: 04:59 3D 3 (three) Hospita 2 % 00 :00 times a l solution day for 3 days. Apply to cottonball and place it by toothache lidocaine 2021-0 2021- No 4mL Q.[id number] Apply 4 mL Methodi HCL 9-25 -[id number] (lidocaine) 00:00: 04:59 3D 3 (three) Hospita 2 % 00 :00 times a l solution day for 3 days. Apply to cotton[place] and place it by toothache lidocaine 2021-0 2021- No 4mL Q.[id number] Apply 4 mL Methodi HCL 9-25 -[id number] (lidocaine) 00:00: 04:59 3D 3 (three) Hospita 2 % 00 :00 times a l solution day for 3 days. Apply to cottonball and place it by toothache lidocaine 2021-0 2022- No 4mL Q.[id number] Apply 4 mL Methodi HCL 9-25 -[id number] (lidocaine) 00:00: 04:59 3D 3 (three) Hospita 2 % 00 :00 times a l solution day for 3 days. Apply to cottonball and place it by toothache lidocaine 2021-0 2022- No 4mL Q.[id number] Apply 4 mL Methodi HCL 9-25 -[id number] (lidocaine) 00:00: 04:59 3D 3 (three) Hospita 2 % 00 :00 times a l solution day for 3 days. Apply to cotton[place] and place it by toothache lidocaine 2021- No 4mL Q.[id number] Apply 4 mL [facility] HCL 06-[id number] (lidocaine) 00:00: 04:59 3D 3 (three) Hospita 2 % 00 :00 times a l solution day for 3 days. Apply to cotton[place] and place it by toothache lidocaine 2021- No 4mL Q.[id number] Apply 4 mL [facility] HCL 06-[id number] (lidocaine) 00:00: 04:59 3D 3 (three) Hospita 2 % 00 :00 times a l solution day for 3 days. Apply to cotton[place] and place it by toothache lidocaine 2021- No 4mL Q.[id number] Apply 4 mL [facility] HCL 06-[id number] (lidocaine) 00:00: 04:59 3D 3 (three) Hospita 2 % 00 :00 times a l solution day for 3 days. Apply to cotton[place] and place it by toothache lidocaine 2021- No 4mL Q.[id number] Apply 4 mL [facility] HCL 06-18- [id number] topically st (lidocaine) 00:00: 04:59 3D 3 (three) Hospita 2 % 00 :00 times a l solution day for 3 days. Apply to cotton[place] and place it by toothache lidocaine 2021- No 4mL Q.[id number] Apply 4 mL [facility] HCL 06-[id number] (lidocaine) 00:00: 04:59 3D 3 (three) Hospita 2 % 00 :00 times a l solution day for 3 days. Apply to cotton[place] and place it by toothache butalbital- 2021- No 1{tbl} 1 tablet, Univers acetaminoph 05-31 Oral, ity of en-caff 02:30: 02:22 ONCE, 1 [place] (ESGIC) 00 :00 dose, On Medical 50-325-40 05/30/22 Bran ch mg tablet 1 at 2130, tablet CHRISTINA butalbital- Yes [id number] 1{tbl} Take 1 Univers acetaminoph 9-06 tablet [...] vomiting for up to 30 days. LISINOPRIL 2022-0 Yes Take by [facility] ORAL 8-16 mouth. ity of 21:45: [address] Branch HYDROcodone 2022-0 Yes 1{tbl} Take 1 Un butch -acetaminop 8-16 tablet by ity of hen (NORcastaclip) 21:45: mouth [place] 10-325 mg 20 every 6 Medical tablet (six) Branch hours as needed. LISINOPRIL 2022-0 Yes Take by [facility] ORAL 8-16 mouth. ity of 21:45: [place] 20 Medical Branch HYDROcodone 2022-0 Yes 1{tbl} Take 1 [...] Irfan as needed l 03:47: [place] Hydrocodone 2017-0 Yes [...] l 2-14 Irfan as needed l 03:47: [place] 13 Meloxicam 2018-0 Yes [place] 1 tablet [...] 1 tablet Memoria 2-14 Irfan l 03:47: [place] 13 Hydrocodone 2018-0 Yes [place] 1 tablet Memoria -Acetaminop 2-14 Irfan as needed l hen 03:47: [place] 13 Carisoprodo 2018-0 Yes [place] 1 tablet Memoria l 2-14 Irfan as needed l 03:47: [place] 13 Meloxicam 2018-0 Yes [place] 1 tablet Memoria 2-14 Irfan l 03:47: [place] Hydrocodone 2018-0 Yes [place] 1 tablet Memoria -Acetaminop 2-14 Irfan as needed l hen 03:47: [place] Carisoprodo 2018-0 Yes [place] 1 tablet Memoria l 2-14 Irfan as needed l 03:47: [place] 13 Acetaminoph 2018-0 Yes [place] [...] [facility]ukes 00:00: Memoria 00 l (LUF/LI V/SA) [place] 2018-0 Yes [place] 1 tablet Enrique elkin 1-15 Irfan as needed l 00:00: Meloxicam 2018-0 Yes [place] 1 tablet Memoria 1-15 Irfan l 00:00: [place] 2018-0 Yes [place] 1 tablet Memor ia 1-15 Irfan as needed l 00:00: [place] 2018-0 Yes [place] 1 tablet Enrique elkin 1-15 Irfan as needed l 00:00: [place] 2018-0 Yes [place] 1 tablet Memor ia 1-15 Irfan as needed l 00:00: Meloxicam 2018-0 Yes [place] 1 tablet Memoria 1-15 Irfan l 00:00: [place] 2018-0 Yes [place] 1 tablet Enrique elkin 1-15 Irfan as needed l 00:00: [place] 2018-0 Yes [place] 1 tablet Memor ia 1-15 Irfan as needed l 00:00: Meloxicam 2018-0 Yes [place] 1 tablet Memoria 1-15 Irfan l 00:00: [place] 2018-0 Yes [place] 1 tablet Enrique elkin 1-15 Irfan as needed l 00:00: [place] 2018-0 Yes [place] 1 tablet Memor ia 1-15 Irfan as needed l 00:00: Meloxicam 2018-0 Yes [place] 1 tablet Memoria 1-15 Irfan l 00:00: [place] 2018-0 Yes [place] 1 tablet Enrique elkin 1-15 Irfan as needed l 00:00: [place] 2018-0 Yes [place] 1 tablet Memor ia 1-15 Irfan as needed l 00:00: Meloxicam 2018-0 Yes [place] 1 tablet Memoria 1-15 Irfan l 00:00: [place] 2018-0 Yes [place] 1 tablet Enrique elkin 1-15 Irfan as needed l 00:00: [place] 2018-0 Yes [place] 1 tablet Memor ia 1-15 Irfan as needed l 00:00: Meloxicam 2018-0 Yes [place] 1 tablet Memoria 1-15 Irfan l 00:00: [place] 2018-0 Yes [place] 1 tablet Enrique elkin 1-15 Irfan as needed l 00:00: [place] 2018-0 Yes [place] 1 tablet Memor ia 1-15 Irfan as needed l 00:00: Meloxicam 2018-0 Yes [place] 1 tablet Memoria 1-15 Irfan l 00:00: [place] 2018-0 Yes [place] 1 tablet Enrique elkin 1-15 Irfan as needed l 00:00: [place] 2018-0 Yes [place] 1 tablet Memor ia 1-15 Irfan as needed l 00:00: Meloxicam 2018-0 Yes [place] 1 tablet Memoria 1-15 Irfan l 00:00: Meloxicam 2018-0 Yes [place] 1 tablet Memoria 1-15 Irfan l 00:00: [place] 2018-0 Yes [place] 1 tablet Memor ia 1-15 Irfan as needed l 00:00: [place] 2018-0 Yes [place] 1 tablet Enrique elkin 1-15 Irfan as needed l 00:00: Meloxicam 2018-0 Yes [place] 1 tablet Memoria 1-15 Irfan l 00:00: [place] 2018-0 Yes [place] 1 tablet Memor ia 1-15 Irfan as needed l 00:00: [place] 2018-0 Yes [place] 1 tablet Enrique elkin 1-15 Irfan as needed l 00:00: Meloxicam 2018-0 Yes [place] 1 tablet Memoria 1-15 Irfan l 00:00: [place] 2018-0 Yes [place] 1 tablet Memor ia 1-15 Irfan as needed l 00:00: [place] 2018-0 Yes [place] 1 tablet Enrique elkin 1-15 Irfan as needed l 00:00: Meloxicam 2018-0 Yes [place] 1 tablet Memoria 1-15 Irfan l 00:00: [place] 2018-0 Yes [place] 1 tablet Memor ia 1-15 Irfan as needed l 00:00: [place] 2018-0 Yes [place] 1 tablet Enrique elkin [...] 01:59:00 128 mm[Hg] Univer sity of pressure [place] [facility] Diastolic blood 2022-05-31 01:59:00 81 mm[Hg] Unive rsity of pressure [place] [facility] Heart rate 2022-05-31 01:59:00 78 /min [facility]i ty [facility] [place] [facility] Body temperature 2022-05-31 01:59:00 36.94 Amisha Univ ers[facility] [place] [facility] Respiratory rate 2022-05-31 01:59:00 18 /min Univ ers[facility] [place] [facility] Body height 2022-05-31 01:59:00 165.1 cm [facility] [place] [facility] Body weight 2022-05-31 01:59:00 127.007 kg [facility] [place] [facility] BMI 2022-05-31 01:59:00 46.59 kg/m2 [facility] [place] [facility] Oxygen saturation in 2022-05-31 01:59:00 95 /min University of Arterial blood by [place] [employer] shannan Pulse oximetry Branch Systolic blood 2022-05-10 02:39:00 148 mm[Hg] Univer sity of pressure [place] [facility] Diastolic blood 2022-05-10 02:39:00 84 mm[Hg] Unive rsity of pressure [place] [facility] Heart rate 2022-05-10 02:39:00 70 /min [facility]i [facility] [place] [facility] Body temperature 2022-05-10 02:39:00 37.56 Amisha [facility] [place] [facility] Respiratory rate 2022-05-10 02:39:00 18 /min Univ [facility] [place] [facility] Body height 2022-05-10 02:39:00 162.6 cm [facility] [place] [facility] Body weight 2022-05-10 02:39:00 127.007 kg [facility] [place] [facility] BMI 2022-05-10 02:39:00 48.06 kg/m2 [facility]i [facility] [place] [facility] Oxygen saturation in 2022-05-10 02:39:00 95 /min University of Arterial blood by [place] [employer] sh[employer]an Pulse oximetry Branch Body weight 2022-04-23 20:11:00 133.131 kg [facility]i [facility] [place] [facility] BMI 2022-04-23 20:11:00 50.38 kg/m2 Universi ty [facility] Systolic blood 2022-04-23 20:09:00 140 mm[Hg] Univer sity of pressure [facility] Diastolic blood 2022-04-23 20:09:00 81 mm[Hg] Unive rsity of pressure [facility] Heart rate 2022-04-23 20:09:00 66 /min Universi [facility] Body temperature 2022-04-23 20:09:00 36.72 Amisha [facility] 2022-04-23 20:09:00 17 /min [facility] Body height 2022-04-23 20:09:00 162.6 cm [facility] Oxygen saturation in 2022-04-23 20:09:00 97 /min University Arterial blood by [facility] Pulse oximetry [place] Systolic blood 2022-06-18 15:20:24 157 mm[Hg] Method [facility] pressure Diastolic blood 2022-06-18 15:20:24 74 mm[Hg] [facility] pressure Heart rate 2022-06-18 15:20:24 53 /min [facility] Body temperature 2022-06-18 15:20:24 36.78 Amisha [facility] Respiratory rate 2022-06-18 15:20:24 16 /min [facility] Oxygen saturation in 2022-06-18 15:20:24 97 /min [facility] Arterial blood by Pulse oximetry Body height 2022-06-18 12:48:[address] [facility] Body weight 2022-06-18 12:48:[address] [facility] BMI 2022-06-18 12:48:00 48.06 kg/m2 [facility] Systolic blood 2022-05-21 00:33:00 132 mm[Hg] Method [facility] pressure Diastolic blood 2022-05-21 00:33:00 64 mm[Hg] [facility] pressure Heart rate 2022-05-21 00:33:00 64 /min [facility] Oxygen saturation in 2022-05-21 00:33:00 98 /min [facility] Arterial blood by Pulse oximetry Body temperature 2022-05-20 23:53:12 36.17 Amisha [facility] Respiratory rate 2022-05-20 23:53:12 18 /min [facility] Body height 2022-05-20 23:52:[address] [facility] Body weight 2022-05-20 23:52:[address] [facility] BMI 2022-05-20 23:52:00 48.06 kg/m2 [facility] Weight 2017-10-25 15:00:00 [facility] [place] Height 2017-10-25 15:00:00 [facility] [place] Temperature Oral (F) 2017-10-25 15:00:00 97.8 F [facility] [place] Heart Rate 2017-10-25 15:00:00 [facility] [place] Diastolic (mm Hg) 2017-10-25 15:00:00 Mem orial [place] Systolic (mm Hg) 2017-10-25 15:00:00 Enrique rial [place] Body Temperature 2017-10-21 12:00:00 97.5 F Replaced by [facility] (LUF/BLANCA/SA) Respiratory Rate 2017-10-21 12:00:00 20 /min Replaced by [facility] (LUF/BLANCA/SA) O2% BldC Oximetry 2017-10-21 12:00:00 98 % Replaced by [facility] (LUF/BLANCA/SA) BP Systolic 2017-10-21 12:00:00 132 mm[Hg] [facility] (LUF/BLANCA/SA) BP Diastolic 2017-10-21 12:00:00 78 mm[Hg] [facility] (LUF/BLANCA/SA) Height 2017-10-21 12:00:00 64 in [facility] (LUF/BLANCA/SA) Weight Measured 2017-10-21 12:00:00 282.19 lbs [facility] (LUF/BLANCA/SA) BMI (Body Mass 2017-10-21 12:00:00 48.7 [facility] (LUF/BLANCA/SA) Weight 2017-10-08 15:45:00 [facility] [place] Height 2017-10-08 15:45:00 [facility] [place] Temperature Oral (F) 2017-10-08 15:45:00 96.8 F [facility] [place] Heart Rate 2017-10-08 15:45:00 [facility] [place] Diastolic (mm Hg) 2017-10-08 15:45:00 Mem moni Vo Systolic (mm Hg) 2017-10-08 15:45:00 Enrique Vo Procedures Procedure Date / Time Performing Clinician Source Performed CT MAXILLOFACIAL WO 2022-06-18 14:48:[address] [facility] CONTRAST CONSENT/REFUSAL FOR 2022-05-31 01:55:15 Doctor Unassigned, No [facility] [place] DI[facility]NOS[facility] TREATMENT Name Medical Branch CT CERVICAL SPINE WO 2022-05-21 01:24:51 [facility] WO CONTRAST 2022-05-21 01:15:40 [facility] POC GLUCOSE 2022-05-21 00:33:00 [facility] NOTICE OF PRIVACY 2022-05-10 02:37:04 Doctor Unassigned, No [facility] [place] PRACTICES Name Medical Branch CONSENT/REFUSAL FOR 2022-05-10 02:35:02 Doctor Unassigned, No [facility] [place] DI[facility] TREATMENT Name Medical Branch CONSENT/REFUSAL FOR 2022-04-23 20:00:28 Doctor Unassigned, No [facility] [place] DIAGNOSIS AND TREATMENT Name Medical Branch Plan of Care Planned Activity Planned Date Details Comments Source Future Scheduled 2023-06-24 Screening [facility] Test 02:49:40 malignant neoplasm of colon (procedure) [code = 633231958] Future Scheduled 2023-06-24 [facility]ening [facility] Test 02:49:40 malignant neoplasm of colon (procedure) [code = 969983646] Future Scheduled 2023-06-24 [facility]ening [facility] Test 02:49:40 malignant neoplasm of colon (procedure) [code = 468527187] Future Scheduled 2023-06-24 Hepatitis C screening [facility] Test 02:49:40 (procedure) [code = 670537629] Future Scheduled 2023-06-24 COVID-19 VACCINE (3 - [facility] Test 02:49:40 Pfizer series) [code = COVID-19 VACCINE (3 - Pfizer series)] Future Scheduled 2023-06-24 Screening [facility] Test 02:49:40 malignant neoplasm of colon (procedure) [code = 665232711] Future Scheduled 2023-06-24 [facility] Test 02:49:40 malignant neoplasm of colon (procedure) [code = 219566455] Future Scheduled 2023-06-24 INFLUENZA VACCINE [facility] Test 02:49:40 (#1) [code = INFLUENZA VACCINE (#1)] Future Scheduled 2023-06-24 [facility] Test 02:49:40 malignant neoplasm of colon (procedure) [code = 493456475] Future Scheduled 2023-06-24 [facility] Test 02:49:40 malignant neoplasm of colon (procedure) [code = 217673101] Future Scheduled 2023-06-24 [facility]ening [facility] Test 02:49:40 malignant neoplasm of colon (procedure) [code = 096403007] Future Scheduled 2023-06-24 [facility] Test 02:49:40 (procedure) [code = 845314951] Future Scheduled 2023-06-24 COVID-19 VACCINE (3 - [facility] Test 02:49:40 Pfizer series) [code = COVID-19 VACCINE (3 - Pfizer series)] Future Scheduled 2023-06-24 Screening [facility] Test 02:49:40 malignant neoplasm of colon (procedure) [code = 604615086] Future Scheduled 2023-06-24 Screening for [facility] Test 02:49:40 malignant neoplasm of colon (procedure) [code = 510939754] Future Scheduled 2023-06-24 INFLUENZA VACCINE [facility] Test 02:49:40 (#1) [code = INFLUENZA VACCINE (#1)] Future Scheduled 2023-05-28 [facility] Test 18:05:11 malignant neoplasm of colon (procedure) [code = 498343125] Future Scheduled 2023-05-28 [facility]ening [facility] Test 18:05:11 malignant neoplasm of colon (procedure) [code = 458449757] Future Scheduled 2023-05-28 [facility] Test 18:05:11 malignant neoplasm of colon (procedure) [code = 419654187] Future Scheduled 2023-05-28 [facility] Test 18:05:11 (procedure) [code = 703853756] Future Scheduled 2023-05-28 COVID-19 VACCINE (3 - [facility] Test 18:05:11 Pfizer series) [code = COVID-19 VACCINE (3 - Pfizer series)] Future Scheduled 2023-05-28 [facility] Test 18:05:11 malignant neoplasm of colon (procedure) [code = 550798125] Future Scheduled 2023-05-28 [facility] Test 18:05:11 malignant neoplasm of colon (procedure) [code = 127376605] Future Scheduled 2023-05-28 INFLUENZA VACCINE [facility] Test 18:05:11 (#1) [code = INFLUENZA VACCINE (#1)] Future Scheduled 2023-04-27 [facility] Test 11:13:08 malignant neoplasm of colon (procedure) [code = 497869179] Future Scheduled 2023-04-27 [facility] Test 11:13:08 malignant neoplasm of colon (procedure) [code = 055731939] Future Scheduled 2023-04-27 [facility] Test 11:13:08 malignant neoplasm of colon (procedure) [code = 062029204] Future Scheduled 2023-04-27 [facility] Test 11:13:08 (procedure) [code = 767653671] Future Scheduled 2023-04-27 COVID-19 VACCINE ([facility] - [facility] Test 11:13:08 Pfizer series) [code = COVID-19 VACCINE (3 - Pfizer series)] Future Scheduled 2023-04-27 Screening [facility] Test 11:13:08 malignant neoplasm of colon (procedure) [code = 178059469] Future Scheduled 2023-04-27 [facility] Test 11:13:08 malignant neoplasm of colon (procedure) [code = 310835867] Future Scheduled 2023-04-27 INFLUENZA VACCINE [facility] Test 11:13:08 [code = INFLUENZA VACCINE] Future Scheduled 2023-04-27 [facility] Test 11:13:08 malignant neoplasm of colon (procedure) [code = 545317149] Future Scheduled 2023-04-27 [facility] Test 11:13:08 malignant neoplasm of colon (procedure) [code = 625941334] Future Scheduled 2023-04-27 [facility] Test 11:13:08 malignant neoplasm of colon (procedure) [code = 848188409] Future Scheduled 2023-04-27 [facility] Test 11:13:08 (procedure) [code = 438933816] Future Scheduled 2023-04-27 COVID-19 VACCINE (3 - [facility] Test 11:13:08 Pfizer series) [code = COVID-19 VACCINE (3 - Pfizer series)] Future Scheduled 2023-04-27 [facility] Test 11:13:08 malignant neoplasm of colon (procedure) [code = 861735606] Future Scheduled 2023-04-27 [facility] Test 11:13:08 malignant neoplasm of colon (procedure) [code = 021839609] Future Scheduled 2023-04-27 INFLUENZA VACCINE [facility] Test 11:13:08 [code = INFLUENZA VACCINE] Future Scheduled 2023-01-09 [facility] Test 02:12:34 (procedure) [code = 605279069] Future Scheduled 2023-01-09 COVID-19 VACCINE (3 - [...] [facility] Test 02:12:34 (procedure) [code = 739010246] Future Scheduled 2023-01-09 COVID-19 VACCINE (3 - [...] [facility] Test 15:04:49 (procedure) [code = 606801662] Future Scheduled 2022-09-08 COVID-19 VACCINE (3 - [facility] Test 15:04:49 Booster for Pfizer series) [code = COVID-19 VACCINE (3 - Booster for Pfizer series)] Future Scheduled 2022-09-08 INFLUENZA VACCINE Method [facility] Hospital Test 15:04:49 [code = INFLUENZA VACCINE] Future Scheduled 2022-09-08 Hepatitis C screening [facility] Test 15:04:49 (procedure) [code = 440343806] Future Scheduled 2022-09-08 COVID-19 VACCINE (3 - [facility] Test 15:04:49 Booster for Pfizer series) [code = COVID-19 VACCINE (3 - Booster for Pfizer series)] Future Scheduled 2022-09-08 INFLUENZA VACCINE Method [facility] Test 15:04:49 [code = INFLUENZA VACCINE] Future Scheduled 2022-09-08 Hepatitis C screening [facility] Test 15:04:49 (procedure) [code = 431381464] Future Scheduled 2022-09-08 COVID-19 VACCINE (3 - [facility] Test 15:04:49 Booster for Pfizer series) [code = COVID-19 VACCINE (3 - Booster for Pfizer series)] Future Scheduled 2022-09-08 INFLUENZA VACCINE Method [facility] Hospital Test 15:04:49 [code = INFLUENZA VACCINE] Future Scheduled 2022-09-08 Hepatitis C screening [facility] Test 15:04:49 (procedure) [code = 638841868] Future Scheduled 2022-09-08 COVID-19 VACCINE ([facility] - [facility] Test 15:04:49 Booster for Pfizer series) [code = COVID-19 VACCINE (3 - Booster for Pfizer series)] Future Scheduled 2022-09-08 INFLUENZA VACCINE Method is Hospital Test 15:04:49 [code = INFLUENZA VACCINE] Future Scheduled 2022-06-18 HEPATITIS B VACCINES Met [facility] Test 09:25:33 (1 of 3 - 3-dose series) [code = HEPATITIS B VACCINES (1 of 3 - 3-dose series)] Future Scheduled 2022-06-18 Hepatitis C screening [facility] Test 09:25:33 (procedure) [code = 040390345] Future Scheduled 2022-06-18 COVID-19 VACCINE (3 - [facility] Test 09:25:33 Booster for Pfizer series) [code = COVID-19 VACCINE (3 - Booster for Pfizer series)] Future Scheduled 2022-06-18 INFLUENZA VACCINE [facility] Test 09:25:33 [code = INFLUENZA VACCINE] Future Scheduled 2022-06-18 HEPATITIS B VACCINES Met [facility] Test 09:25:33 (1 of 3 - 3-dose series) [code = HEPATITIS B VACCINES (1 of 3 - 3-dose series)] Future Scheduled 2022-06-18 Hepatitis C screening [facility] Test 09:25:33 (procedure) [code = 818408795] Future Scheduled 2022-06-18 COVID-19 VACCINE (3 - [facility] Test 09:25:33 Booster for Pfizer series) [code = COVID-19 VACCINE (3 - Booster for Pfizer series)] Future Scheduled 2022-06-18 INFLUENZA VACCINE [facility] Test 09:25:33 [code = INFLUENZA VACCINE] Future Scheduled 2022-06-18 HEPATITIS B VACCINES Met [facility] Test 09:25:33 (1 of 3 - 3-dose series) [code = HEPATITIS B VACCINES (1 of 3 - 3-dose series)] Future Scheduled 2022-06-18 Hepatitis C screening [facility] Test 09:25:33 (procedure) [code = 785002983] Future Scheduled 2022-06-18 COVID-19 VACCINE (3 - [facility] Test 09:25:33 Booster for Pfizer series) [code = COVID-19 VACCINE (3 - Booster for Pfizer series)] Future Scheduled 2022-06-18 INFLUENZA VACCINE [facility] Test 09:25:33 [code = INFLUENZA VACCINE] Future Scheduled 2022-06-09 HEPATITIS B VACCINES Met [facility] Test 18:36:38 (1 of 3 - 3-dose series) [code = HEPATITIS B VACCINES (1 of 3 - 3-dose series)] Future Scheduled 2022-06-09 Hepatitis C screening [facility] Test 18:36:38 (procedure) [code = 701710771] Future Scheduled 2022-06-09 COVID-19 VACCINE (3 - [facility] Test 18:36:38 Booster for Pfizer series) [code = COVID-19 VACCINE (3 - Booster for Pfizer series)] Future Scheduled 2022-06-09 INFLUENZA VACCINE [facility] Test 18:36:38 [code = INFLUENZA VACCINE] Future Scheduled 2022-05-25 HEPATITIS B VACCINES Met [facility] Test 07:52:22 (1 of 3 - 3-dose series) [code = HEPATITIS B VACCINES (1 of 3 - 3-dose series)] Future Scheduled 2022-05-25 Hepatitis C screening [facility] Test 07:52:22 (procedure) [code = 855809496] Future Scheduled 2022-05-25 COVID-19 VACCINE ([facility] Test 07:52:22 Booster for Pfizer series) [code = COVID-19 VACCINE (3 - Booster for Pfizer series)] Future Scheduled 2022-05-25 INFLUENZA VACCINE Method [facility] Test 07:52:22 [code = INFLUENZA VACCINE] Future Scheduled 2022-05-25 HEPATITIS B VACCINES Met [facility] Test 07:52:22 (1 of 3 - 3-dose series) [code = HEPATITIS B VACCINES (1 of 3 - 3-dose series)] Future Scheduled 2022-05-25 Hepatitis C screening [facility] Test 07:52:22 (procedure) [code = 288859832] Future Scheduled 2022-05-25 COVID-19 VACCINE (3 - [facility] Test 07:52:22 Booster for Pfizer series) [code = COVID-19 VACCINE (3 - Booster for Pfizer series)] Future Scheduled 2022-05-25 INFLUENZA VACCINE [facility] Test 07:52:22 [code = INFLUENZA VACCINE] Encounters Start End Encounter Admission Attending Care Care Encounter Source Date/Time Date/Time Type Type Clinicians Facility Department ID 2023-07-02 Outpatient [id number]- 6ZWGZ3H2-25 9DBE E8E3-0 [facility] 08:47:38 061C-482C 1C-482C-8C0 61C-482C- 8 l -1A4O-773 F-963LFL040 D6O-715EEL Tavo PFB302J5N C8D 617C8D 2023-06-24 Outpatient 13H9JWTX- 15H6RTRU-97 51C1 AAAB-9 [facility] 02:49:59 9981-479A 81-479A-962 981-479A- 9 l -9621-347 1-9422M39ST 621-3472C3 Tavo 0N93CGCEW EAC 9EBEAC 2023-06-03 Outpatient [id number]- [id number] 1108 20D3-5 [facility] 21:49:39 5824-4CD0 24-5EB9-NY8 824-4CD0- B l -NK79-8NU 5-8HM6WR265 C36-7LG7LJ Tavo 7NP03536O 99E 27169F 2023-05-13 Outpatient 0MA5PZ12- 0WQ8JL07-10 9FB8 AE55-2 [facility] 00:04:30 80J1-1F46 E3-7R59-428 4V5-4O45- 8 l -818B-D48 B-O54D59585 18B-D48E11 [place] [id number] B77 601B77 2023-04-28 Outpatient EG693O44- HM585P76-6V BF11 8E44-4 [facility] 01:56:12 8Q38-50O4 29-12S2-13C S96-90Q4- 8 l -41Z6-500 6-2744025XF 8Q0-580123 Tavo 6777CI29N 55D 4BD55D 2023-02-13 Outpatient 41M8U275- 62A8Z919-W3 74F9 E380-D [facility] 07:15:33 P620-3EB5 14-1NH1-EW7 414-4AA9- A l -DL3L-1VC A-9QBNR2R38 E5E-0DFBV7 Tavo XK8T36L9T F4B A56F4B 2023-01-21 Outpatient 71F193W8- 02J238I4-1Q 16F3 10F0-0 [facility] 18:12:35 8PX2-38N0 C8-47Y6-63E EC8-41B6- 8 l -84FA-CDD A-GSD234ERY 4FA-WKL366 Tavo 203LUP053 063 YUD614 2022-12-02 Outpatient 82G965V4- 05I169Q1-90 04F8 97C6-9 [facility] 21:50:02 977E-4F82 7E-1M10-617 77E-4F82- 8 l -8693-8E8 3-9V8A35591 693-8E8C26 [place] [id number] 6F6 1306F6 2022-11-12 Outpatient [id number]- E4241JT4-TF F702 5ED6-A [facility] 01:29:42 ADA0-43F6 A0-54A1-K36 DA0-43F6- A l -U322-68Q 6-35U6F05AO 116-87F8D9 Tavo 5Q64RMI3N C1D 5BBC1D 2022-10-16 Outpatient 6U939HVW- 4L481JGG-6Z 7A87 7EEE-1 [facility] 06:48:40 0AG1-2196 B4-4798-8A7 AB4-4798- 8 l -8F5Z-43D F-36G3DX228 E1U-71C8QZ Tavo 3RN593T72 D64 698D64 2022-09-25 Outpatient 0QX6342N- 2DE5755N-67 3BD2 723F-9 [facility] 18:40:25 83P6-3M83 D1-9N34-85A 3H9-1Z91- 8 l -89BD-1A5 D-8R7YXDY03 9BD-1A5DCD Tavo HKAW594H1 6A3 E256A3 2022-07-11 Outpatient 32T9I43J- 16A5R19I-94 94C6 F00D-5 [facility] 20:33:16 78W7-92RX F4-47BE-8F8 9Y1-38CT- 8 l -3M2X-80X F-43HRAU995 C4Y-88GYYF Tavo REC399WNI FAD 309FAD 2022-07-05 Outpatient 2016S7U4- 1867O5F3-07 3842 B7D1-4 [facility] 21:55:55 18G5-89R4 E6-71M7-L03 3S0-93O2- A l -O34L-6H1 A-1G693LJS5 53A-6S646D Tavo 14NVS5R4W F6F BA1F6F 2022-06-20 Outpatient DGQSS4RW- FOEQS3RT-S6 FEAA B0FE-B [facility] 20:55:03 C61J-3OMR 9E-4FBC-9E6 39E-4FBC- 9 l -7Y45-Q17 0-S60JLU916 Z04-J74INO [place] KOL4157N0 7B9 9867B9 2022-06-18 Outpatient 7N2074OV- 3V6019FF-0L 4A16 41FC-3 [facility] 07:44:31 0K04-4PYW 17-4EED-9D8 Q39-1BKO- 9 l -1Z72-R0R 1-M9NB587E5 O78-Y8LR59 Tavo Q996I6A72 A09 2A0A09 2022-06-14 Outpatient 7S5052L5- 5J6708J7-J9 4F66 73A9-D [facility] 22:44:21 K72L-5T13 0A-7X91-065 90A-4A19- 9 l -9064-22B 4-47X703B5H 064-44I807 [place] 838Y9Y197 120 V1V654 2022-06-08 Outpatient X2546HN6- T9975CB4-J1 F051 4BD7-F [facility] 21:22:44 H35H-6LY8 4B-1QO5-330 44B-4BC4- 8 l -819B-E8C B-M6D48375F 19B-E7O998 [place] 41997SW93 C63 53AC63 2022-06-03 Outpatient QCOO75W9- IQMD76E0-73 ABCB 93A3-4 [facility] 01:33:52 4565-43DE 65-43DE-92E 565-43DE- 9 l -62J0-579 7-833GR56DL 4B5-212AS3 [facility] EI54LO062 217 5ZK781 2022-05-30 Outpatient 209IK165- 506KN663-4T 114E F493-4 [facility] 20:55:52 4D00-447N 39-438E-9B8 U33-095W- 9 l -8T84-5ON 0-4WKY8N7AP Q52-8QUC2A Tavo I3X1GSY72 F41 4BEF41 2022-05-20 Outpatient 0G29Q20X- 7K69P75S-6B 5C46 A21D-1 [facility] 18:55:15 1FAA-4CF3 AA-8IT6-31X FAA-4CF3- 8 l -80ED-A77 D-R35D85435 0ED-A77A25 Tavo [id number] 664 182546 4968-09-27 Outpatient [id number]- 2M556152-39 5C72 5329-4 [facility] 14:21:52 19K7-5OSX F0-4CEA-948 6H6-6JSH- 9 l -9486-B77 6-Q40RED3M2 486-B77BBD Tavo GEA9T58M2 4C4 1C14C4 2021-06-20 Outpatient 518IIR43- 913LJA60-02 596A BE16-8 [facility] 14:21:45 8434-49AE 34-49AE-95B 434-49AE- 9 l -95BD-57D D-17TM11T5G 5BD-57DA06 [facility] P63M6Z712 032 T5B186 2021-05-30 Outpatient [id number]- XE644999-BN CE68 9471-D [facility] 15:44:20 DAF5-4596 F5-4596-BFE AF5-4596- B l -BFE1-51A 1-19YPH04MP FE1-51ACA1 Tavo FU49NE2NB 1BA 9CA1BA 2020-01-20 Inpatient [facility] [id number] [facility] 15:25:00 21 [facility] 2019-12-16 Inpatient [facility] [id number] [facility] 17:49:00 32 [facility] 2019-12-12 Inpatient [facility] [id number] [facility] 08:32:00 83 [facility] 2019-11-27 Inpatient [facility] [id number] [facility] 07:33:00 06 [facility] 2022-06-18 2022-06-18 Emergency Rodolfo, 1.2.840.1 [id number] 2100 885594 Method[facility] 07:52:00 10:32:00 Arjun 52429.1.1 142 [facility] 3.430.2.7 [facility] .3.958532 l .8 2022-05-30 2022-05-30 Emergency X JASBIR, DENAE ERT [id number] [facility] 21:02:00 21:53:00 ALBIN ibrahim [facility] 2022-05-30 2022-05-30 Emergency Jasbir, [facility] 1.2.686.373 3985 7 Univers 21:02:00 21:53:00 Albin RUSSO 350.1.13.10 i ty of [place] 4.2.7.2.686 [facility] [id number] [address] 2022-05-20 2022-05-20 Emergency Bejarano-Kings 1.2.840.1 [id number] Methodi 19:29:00 21:04:[address] 3.430.2.7 Hospit a .3.128324 l .8 2022-05-20 2022-05-20 Travel 1.2.840.1 1.2.942.294 5902 281687 Method[facility] 00:00:00 00:00:[address] 3.430.2.7 0.2.7.3.698 Ho spita .3.576783 084.8 l .8 2022-05-09 2022-05-09 Emergency X JESSYRUST ERT [id number] Univers 21:45:00 21:46:00 CHER ibrahim [facility] 2022-05-09 2022-05-09 Emergency JessyRUST 1.2.840.114 95 [id number] Univers 21:45:00 21:46:00 Cher RUSSO 350.1.13.10 ity of [place] 4.2.7.2.686 [facility] [id number] [address] 2022-04-23 2022-04-23 Emergency X RIDNIKI, [facility] ERT [id number] Univers 15:11:00 15:52:00 BO h[place] y [facility] 2022-04-23 2022-04-23 Emergency [place], [facility] 1.2.929.036 7819 2241 Univers 15:11:00 15:52:00 Bo RUSSO 350.1.13.10 ity of [place] 4.2.7.2.686 [facility] [id number] [facility] [address] 2021-09-14 2021-09-14 Outpatient FERGUSON_AURELIANO [facility] 117 942- [place] 02:13:00 02:13[place] [address] [facility] 2021-09-08 2021-09-08 Outpatient FERGUSON_AURELIANO SANTIZOHOP [facility] 117 942 [place] 02:19:00 02:19[place] [address] [facility] 2017-11-01 2017-11-01 Outpatient Family Family [id number] [facility] 10:47:00 10:47:00 [facility] 2017-10-25 2017-10-25 Outpatient Family Family [id number] e[facility]inic 09:00:00 09:00:00 [facility] 2017-10-21 2017-10-21 PAIN IN NIKKI, [facility] [id number] 11:51:00 14:48:00 [facility] 2017-10-21 2017-10-21 PAIN IN NIKKI, [facility] [id number] [facility] 11:51:00 14:48:00 [facility], [address], (LUF/[place] [address] 2017-10-08 2017-10-08 Outpatient Family Family [id number] eClinic 09:45:00 09:45:00 [facility] Clinic Results Test Description Test Time Test Comments Results Result Comments Source POC glucose 2022-05-21 00:34:00 Test Item Value Reference Range Interpretation Comme nts POC glucose (test code = 56028-3) 217 mg/dL 65-100 H 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 Name: Zach Varela ID: [id number] Lab Interpretation (test code = Abnormal 32227-6) [facility] [id number] 00:34:00 Test Item Value Reference Range Interpretation Comments POC glucose (test code = 217 mg/dL 65-100 H Ope rator Name: Zcah 58586-2) Avery ID: [id number] Lab Interpretation (test Abnormal code = 53245-7) [facility] hwmrjnr6985-33-68 00:34:00 Test Item Value Reference Range Interpretation Comments POC glucose (test code = 217 mg/dL 65-100 H Ope rator Name: Zach Johnston) BinosDevice ID: [id number] Lab Interpretation (test Abnormal code = 95654-4) [facility] [id number] 00:34:00 Test Item Value Reference Range Interpretation Comments POC glucose (test code = 217 mg/dL 65-100 H Ope rator Name: Zach Johnston) BinosDevice ID: [id number] Lab Interpretation (test Abnormal code = 57447-3) [facility]2022-08-28 00:34:00 Test Item Value Reference Range Interpretation Comments POC glucose (test code = 217 mg/dL 65-100 H Ope rator Name: Zach Lieberman7) BinosDevice ID: [id number] Lab Interpretation (test Abnormal code = 78450-9) [facility]2022-08-28 00:34:00 Test Item Value Reference Range Interpretation Comments POC glucose (test code = 217 mg/dL 65-100 H Ope rator Name: Zach Lieberman7) BinosDevice ID: [id number] Lab Interpretation (test Abnormal code = 98272-5) [facility] srfyuhi4410-19-77 00:34:00 Test Item Value Reference Range Interpretation Comments POC glucose (test code = 217 mg/dL 65-100 H Ope rator Name: Zach Lieberman7) BinosDevice ID: [id number] Lab Interpretation (test Abnormal code = 30404-3) [facility] yrtbzzi2934-41-93 00:34:00 Test Item Value Reference Range Interpretation Comments POC glucose (test code = 217 mg/dL 65-100 H Ope rator Name: Zach Lieberman7) BinosDevice ID: [id number] Lab Interpretation (test Abnormal code = 19381-1) [facility] msvhmey1754-13-42 00:34:00 Test Item Value Reference Range Interpretation Comments POC glucose (test code = 217 mg/dL 65-100 H Ope rator Name: Zach Lieberman7) BinosDevice ID: [id number] Lab Interpretation (test Abnormal code = 45792-9) [facility] oinqmug2969-37-76 00:34:00 Test Item Value Reference Range Interpretation Comments POC glucose (test code = 217 mg/dL 65-100 H Ope rator Name: Zach Johnston) BinosDevice ID: [id number] Lab Interpretation (test Abnormal code = 12338-3) [facility]2022-08-28 00:34:00 Test Item Value Reference Range Interpretation Comments POC glucose (test code = 217 mg/dL 65-100 H Ope rator Name: Zach Johnston) BinosDevice ID: [id number] Lab Interpretation (test Abnormal code = 30934-1) [facility]2022-08-28 00:34:00 Test Item Value Reference Range Interpretation Comments POC glucose (test code = 217 mg/dL 65-100 H Ope rator Name: Zach Johnston) BinosDevice ID: [id number] Lab Interpretation (test Abnormal code = 00580-5) [facility] pkmvrpv0190-85-84 00:34:00 Test Item Value Reference Range Interpretation Comments POC glucose (test code = 217 mg/dL 65-100 H Ope rator Name: Zach Johnston) BinosDevice ID: [id number] Lab Interpretation (test Abnormal code = 80401-1) [facility]2022-08-28 00:34:00 Test Item Value Reference Range Interpretation Comments POC glucose (test code = 217 mg/dL 65-100 H Ope rator Name: Zach Johnston) BinosDevice ID: [id number] Lab Interpretation (test Abnormal code = 53114-8) [facility] HEAD/BRAIN W/O [id number] 18:19:00 Patient Name: VIMAL BARROSO Unit No: [id number] EXAMS: CPT CODE: [id number] CT HEAD/BRAIN W/O CONT 89294 CLINICAL INFORMATION: Moderate frontal headaches. Coughing. Dictation Location: R 16 COMPARISON:No prior. Technique: CT was done in the usual fashion. Sagittal and coronal reconstructions. Appropriate dose reduction and image optimization technique was used. DLP 758 mGy-cm. FINDINGS: No area of focal scalp swelling identified. The skull base and cranium appear unremarkable on the bone windows.There is no hydrocephalus or atrophy. No midline [...] Trnscrpt: 12/16/2019 (1818) KirtAGV LORETA Lopez NAME: C[address] PHYS: Germania Isaacs [place] [address] : 1975 AGE: 44 SEX: M LOC: B.ERS PHONE #: [phone] EXAM DATE: 12/16/2019 STATUS: PRE ER FAX #: [phone] RAD #: D/C DT PAGE 1 Signed Report Patient Name: VIMAL BARROSO Unit No: [id number] EXAMS: CPT CODE: [id number] CT HEAD/BRAIN W/O CONT 11642 (Continued) Orig Print D/T: S: 12/16/2019 (1821) LORETA Lopez NAME: VIMAL BARROSO [address] [place] [address] PHYS: Germania Isaacs NP [place] [address] : 1975 AGE: 44 SEX: M LOC: B.ERS PHONE #: [phone] EXAM DATE: 12/16/2019 STATUS: PRE ER FAX #: [phone] RAD #: D/C DT PAGE 2 Signed Report- XR CHEST 2 [id number] 09:11:00 FAX: Germania Engel NP [phone] [place]: E St: REG Patient Name: VIMAL BARROSO Unit No: [id number] EXAMS: CPT CODE: [id number] XR CHEST 2 V 88573 - XR CHEST 2 V LOCATION: T18 [...] 12/12/2019 (913) LORETA Lopez NAME: VIMAL BARROSO [address] [place] [address] [place]: [place] [address] [place] 1975 AGE: 44 SEX: M LOC: EMILY PHONE #: [phone] EXAM DATE: 12/12/2019 STATUS: REG ER FAX #: [phone] RAD NO: DC Dt: PAGE 1 Signed ReportSPINE LUMBAR FQGY7855-88-81 13:37:[address] [id number] IMAGING REPORTPatient Name: Lili BARROSO of Service: [id number]: 41 Sex: M Order #: [id number] Room: CCSDOB: 1975 X-Ray Number: [id number] Record Number: [id number] Hospital Number: [id number] Physician: Agatha CROW Physician: RUBY TREVIÑO LUMBAR [...]
[2023-07-02] MEDS ORDERED: METOCLOPRAMIDE 10 MG/2mL INJ ONE (09:14)
[2023-07-02] MEDS ORDERED: METHYLPREDNISOLONE 125 MG INJ ONE (09:14)
[2023-07-02] MEDS ORDERED: DIPHENHYDRAMINE 50 MG/ML VIAL ONE (09:14)
[2023-07-02] MEDS ORDERED: NA CHLORIDE 0.9% 1,000 ML ONE (09:15)
[2023-07-02] MEDS ORDERED: KETOROLAC 30 MG/ML INJ ONE (09:15)
--- NOTE | 2023-07-02 10:21 | ER ---
Nurse's Notes [facility] Name: Ruben Alamo Age: 47 yrs Sex: Male : 1975 Arrival Date: 07/02/2023 Time: 08:42 Bed 4 Private MD: Diagnosis: Headache Presentation: 07/02 08:50 Chief complaint: Patient states: was up all night with a headache, feels similar to iw previous headaches. Coronavirus screen: At this time, the client does not indicate any symptoms associated with coronavirus-19. Ebola Screen: Patient negative for fever greater than or equal to 101.5 degrees Fahrenheit, and additional compatible Ebola Virus Disease symptoms Patient denies exposure to infectious person. Patient denies travel to an Ebola-affected area in the 21 days before illness onset. No symptoms or risks identified at this time. Initial Sepsis Screen: Does the patient meet any 2 criteria? No. Patient's initial sepsis screen is negative. Does the patient have a suspected source of infection? No. Patient's initial sepsis screen is negative. Risk Assessment: Do you want to hurt yourself or someone else? Patient reports no desire to harm self or others. Onset of symptoms was July 01, 2023. 08:50 Method Of Arrival: Ambulatory iw 08:50 Acuity: LIZBETH 3 iw Triage Assessment: 09:15 Headache History: Denies prior headaches. General: Appears in no apparent distress. ko1 uncomfortable, Behavior is calm, cooperative, appropriate for age. Pain: Also complains of. Pain: Pain currently is 7 out of 10 on a pain scale. Pain began gradually. Historical: - Allergies: 08:51 Iodine; iw 08:51 PENICILLINS; iw 08:51 SHELLFISH; iw - PMHx: 08:51 Chronic pain; headache; Hypertensive disorder; iw - PSHx: 08:51 facial reconstruction; Spinal surgery; iw - Immunization history:: Adult Immunizations. - Social history:: Smoking status: Patient denies any tobacco usage or history of. Screenin:07 [facility] ED Fall Risk Assessment (Adult) History of falling in the last 3 months, ko1 including since admission No falls in past 3 months (0 pts) Confusion or Disorientation No (0 pts) Intoxicated or Sedated No (0 pts) Impaired Gait No (0 pts) Mobility Assist Device Used No (0 pt) Altered Elimination No (0 pt) Score/Fall Risk Level 0 - 2 = Low Risk Oriented to surroundings, Maintained a safe environment, Educated pt \T\ family on fall prevention, incl call for assistance when getting out of bed, Assessed \T\ reinforced patient's understanding of fall precautions, Provided non-skid footwear, Hourly rounding (assess needs \T\ fall precautionary measures) done, Used ambulatory aids as needed (educated on \T\ assisted with), Used gait belt as appropriate. Abuse screen: Denies threats or abuse. Denies injuries from another. Nutritional screening: No deficits noted. Tuberculosis screening: No symptoms or risk factors identified. Assessment: 10:09 General: Appears in no apparent distress. comfortable, Behavior is calm, cooperative, ko1 appropriate for age. Pain: Complains of pain in top of head and forehead. Neuro: Reports headache. Cardiovascular: No deficits noted. Respiratory: No deficits noted. GI: No deficits noted. : No deficits noted. EENT: No deficits noted. Derm: No deficits noted. Musculoskeletal: No deficits noted. Vital Signs: 08:50 BP 130 / 87; Pulse 55; Resp 16; Temp 98.1; Pulse Ox 97% on R/A; Weight 127.01 kg; iw Height 5 ft. 4 in. ; Pain 5/10; 10:07 BP 126 / 73; Pulse 52; Resp 16; Pulse Ox 100% ; ko1 08:50 Body Mass Index 48.06 (127.01 kg, 162.56 cm) iw 08:50 Pain Scale: Adult iw [place] Coma Score: 09:30 Eye Response: spontaneous(4). Motor Response: obeys commands(6). Verbal Response: jh7 oriented(5). Total: 15. ED Course: 08:45 Patient arrived in ED. mg5 08:46 [facility] jh7 08:46 Tristin Lopez MD is Attending Physician. jh7 08:51 Triage completed. iw 08:52 Flory Gonzalez, ANAHI is Primary Nurse. ko1 08:52 Arm band placed on. iw 09:00 Inserted saline lock: 22 gauge in left hand, using aseptic technique. ko1 10:07 Patient has correct armband on for positive identification. Bed in low position. Call ko1 light in reach. Provided Education on: na. Client placed on continuous cardiac and pulse oximetry monitoring. NIBP monitoring applied. box feeder on. Door closed. Noise minimized. Lights dimmed. Warm blanket given. 10:25 No provider procedures requiring assistance completed. IV discontinued, intact, ko1 bleeding controlled, No redness/swelling at site. Pressure dressing applied. Administered Medications: 09:20 Drug: NS 0.9% IV 1000 ml IV at 1 bolus Per protocol; 1000 mL bolus Route: IV; Rate: 1 ko1 bolus; Site: left hand; 09:56 Follow up: Response: No adverse reaction; IV Status: Completed infusion; IV Intake: ko1 1000ml 09:21 Drug: metoCLOPramide IVP 10 mg IVP once; over 1 to 2 minutes Route: IVP; Site: left ko1 hand; 09:56 Follow up: Response: No adverse reaction ko1 09:23 Drug: diphenhydrAMINE IVP 12.5 mg IVP once Route: IVP; Site: left hand; ko1 09:55 Follow up: Response: No adverse reaction ko1 09:25 Drug: MethylPrednisoLONE IVP 125 mg IVP once Route: IVP; Site: left hand; ko1 09:56 Follow up: Response: No adverse reaction ko1 09:28 Drug: Ketorolac IVP 30 mg IVP once Route: IVP; Site: left hand; ko1 09:56 Follow up: Response: No adverse reaction ko1 Medication: 10:25 VIS not applicable for this client. ko1 Intake: 09:56 IV: 1000ml; Total: 1000ml. ko1 Outcome: 10:20 Discharge ordered by MD. solorzano 10:25 Discharged to home ambulatory, ko1 10:25 Condition: stable 10:27 Discharge instructions given to patient, Instructed on discharge instructions, follow ko1 up and referral plans. medication usage, Demonstrated understanding of instructions, follow-up care, medications, Prescriptions given X 1, 10:28 Patient left the ED. ko1 Signatures: Nitza Peguero RN RN Trinh Dodge FNP FNP Flory Gonzales RN RN moiz1 Rena Khan mg5 Corrections: (The following items were deleted from the chart) 08:52 08:50 BP 130 / 87; Pulse 55bpm; Resp 16bpm; Pulse Ox 97% RA; Temp 98.1F; iw arnel
--- NOTE | 2023-07-02 10:21 | EDPHYS ---
Physician Documentation [facility] Name: Ruben Alamo Age: 47 yrs Sex: Male : 1975 Arrival Date: 07/02/2023 Time: 08:42 Bed 4 Private MD: ED Physician Tristin Lopez HPI: 07/02 08:50 This 47 yrs old Black Male presents to ER via Ambulatory with complaints of Headache. jh7 08:50 The patient complains of pain to the top of head and forehead. The patient describes jh7 the headache as aching. Onset: The symptoms/episode began/occurred last night. Associated signs and symptoms: The patient has no apparent associated signs or symptoms. Headache History: The patient has had previous headaches and this one is similar to previous episodes. Historical: - Allergies: 08:51 Iodine; iw 08:51 PENICILLINS; iw 08:51 SHELLFISH; iw - PMHx: 08:51 Chronic pain; headache; Hypertensive disorder; iw - PSHx: 08:51 facial reconstruction; Spinal surgery; iw - Immunization history:: Adult Immunizations. - Social history:: Smoking status: Patient denies any tobacco usage or history of. ROS: 08:50 Constitutional: Negative for fever, chills, and weight loss, Eyes: Negative for injury, jh7 pain, redness, and discharge, Neck: Negative for injury, pain, and swelling, Cardiovascular: Negative for chest pain, palpitations, and edema, Respiratory: Negative for shortness of breath, cough, wheezing, and pleuritic chest pain, MS/Extremity: Negative for injury and deformity, Skin: Negative for injury, rash, and discoloration, 08:50 Neuro: Positive for headache, Negative for altered mental status, dizziness, gait disturbance, loss of consciousness, numbness, speech changes, syncope, tingling, visual changes, weakness, 08:50 All other systems are negative, Exam: 08:50 Constitutional: This is a well developed, well nourished patient who is awake, alert, jh7 and in no acute distress. Head/Face: Normocephalic, atraumatic. ENT: Nares patent. No nasal discharge, no septal abnormalities noted. Tympanic membranes are normal and external auditory canals are clear. Oropharynx with no redness, swelling, or masses, exudates, or evidence of obstruction, uvula midline. Mucous membranes moist. Neck: Trachea midline, no thyromegaly or masses palpated, and no cervical lymphadenopathy. Supple, full range of motion without nuchal rigidity, or vertebral point tenderness. No Meningismus. Cardiovascular: Regular rate and rhythm with a normal S1 and S2. No gallops, murmurs, or rubs. Normal PMI, no JVD. No pulse deficits. Respiratory: Lungs have equal breath sounds bilaterally, clear to auscultation and percussion. No rales, rhonchi or wheezes noted. No increased work of breathing, no retractions or nasal flaring. Back: No spinal tenderness. No costovertebral tenderness. Full range of motion. Skin: Warm, dry with normal turgor. Normal color with no rashes, no lesions, and no evidence of cellulitis. MS/ Extremity: Pulses equal, no cyanosis. Neurovascular intact. Full, normal range of motion. Neuro: Awake and alert, GCS 15, oriented to person, place, time, and situation. Cranial nerves II-XII grossly intact. Motor strength 5/5 in all extremities. Sensory grossly intact. Cerebellar exam normal. Normal gait. Vital Signs: 08:50 BP 130 / 87; Pulse 55; Resp 16; Temp 98.1; Pulse Ox 97% on R/A; Weight 127.01 kg; iw Height 5 ft. 4 in. ; Pain 5/10; 10:07 BP 126 / 73; Pulse 52; Resp 16; Pulse Ox 100% ; ko1 08:50 Body Mass Index 48.06 (127.01 kg, 162.56 cm) iw 08:50 Pain Scale: Adult Sherlyn Coma Score: 09:30 Eye Response: spontaneous(4). Motor Response: obeys commands(6). Verbal Response: [facility] oriented(5). Total: 15. MDM: 08:46 Patient medically screened. [facility] 09:30 Differential diagnosis: cluster headache, migraine, tension headache. Data reviewed: [facility] vital signs, nurses notes. I considered the following discharge prescriptions or medication management in the emergency department Medications were administered in the Emergency Department. See MAR. Care significantly affected by the following chronic conditions: Hypertension. Counseling: I had a detailed discussion with the patient and/or guardian regarding the historical points, exam findings, and any diagnostic results supporting the discharge/admit diagnosis, to return to the emergency department if symptoms worsen or persist or if there are any questions or concerns that arise at home. Response to treatment: the patient's symptoms have resolved after treatment, the patient's pain is gone. Administered Medications: 09:20 Drug: NS 0.9% IV 1000 ml IV at 1 bolus Per protocol; 1000 mL bolus Route: IV; Rate: 1 ko1 bolus; Site: left hand; 09:56 Follow up: Response: No adverse reaction; IV Status: Completed infusion; IV Intake: ko1 1000ml 09:21 Drug: metoCLOPramide IVP 10 mg IVP once; over 1 to 2 minutes Route: IVP; Site: left ko1 hand; 09:56 Follow up: Response: No adverse reaction ko1 09:23 Drug: diphenhydrAMINE IVP 12.5 mg IVP once Route: IVP; Site: left hand; ko1 09:55 Follow up: Response: No adverse reaction ko1 09:25 Drug: MethylPrednisoLONE IVP 125 mg IVP once Route: IVP; Site: left hand; ko1 09:56 Follow up: Response: No adverse reaction ko1 09:28 Drug: Ketorolac IVP 30 mg IVP once Route: IVP; Site: left hand; ko1 09:56 Follow up: Response: No adverse reaction ko1 Disposition: 10:50 Co-signature as Attending Physician, Tristin Lopez MD I reviewed the patient's care rn provided by the Advanced Practice Provider and agree with the diagnosis and treatment plan. Disposition Summary: 07/02/23 10:20 Discharge Ordered Notes: Location: Home [facility] Problem: new [facility] Symptoms: have improved [facility] Condition: Stable [facility] Diagnosis - Headache [facility] Followup: [facility] - With: Private Physician - When: 2 - 3 days - Reason: Recheck today's complaints Discharge Instructions: - Discharge Summary Sheet 7 - General Headache Without Cause jh7 - Tension Headache, Adult [facility] Forms: - Medication Reconciliation Form 7 - Thank You Letter [facility] - Patient Portal Instructions [facility] - Leadership Thank You Letter [facility] - Work release form [id number] Prescriptions: - Medrol (Jerardo) 4 mg Oral Tablets, Dose Pack - take 1 tablet ORAL route as directed - follow package instructions; 1 packet; [facility] Refills: 0, Product Selection Permitted Signatures: Nitza Peguero RN RN iw Nieto, Roman, MD MD rn Hadash, Jennifer, [employer] jh7 Flory Gonzalez RN RN ko1 Corrections: (The following items were deleted from the chart) 10:30 08:50 This 47 yrs old Black Male presents to ER via Ambulatory with complaints of jh7 Headache. jh7
[2023-07-02 10:45] VITALS: TEMP 98.1
[2023-07-02 10:51] VITALS: BP 126/73; O2SAT 100
== END 2023-07-02 10:28 | disposition home or self-care (01) ==
LOC: ER 08:42
DX: R51.9 Headache, unspecified (principal)
CPT/HCPCS: 96361; 96374; 96375; 99285; J1200; J2765; J2930; J7030

== ENCOUNTER 2023-07-13 01:20 | Emergency (ER) | payer SELFPAY ==
--- OUTSIDE RECORDS SUMMARY | 2023-07-13 01:25 | XMS REPORT | Continuity of Care Document ---
:1975 Author Organization [facility] t Address [address] [place] [address] Care Team Providers Name Role Phone PCP, PATIENT DOES NOT HAVE A Primary Care Physician UnavailArjun Castillo MD Attending Clinician [phone] ANGIE ROSAS Attending Clinician Unavailable Angie [...] ia chronic chronic 03:47:18 l pain pain [place] Active Problem 11/07/2017 Family Diagnostic No known No known Disease Unive rs active active ity of problems problems [facility] Allergies, Adverse Reactions, Alerts Allergy Allergy Status [...] DA Active U 2020-0 [facility] [place] [facility] 00:[facility]: Region [facility] No Known DA Active U [facility]05 [place] [facility] 00:[facility]: Region 00 [facility] N.BennyA. Doni. Active Info Not Enrique elkin Available 10-25 00:00: 00 NO KNOWN Drug Active Univers ALLERGIE Class ity of S [facility] Social History Social Habit Start Date Stop Date Quantity Comments Source Gender identity [facility] Tobacco use and 2022-06-18 2022-06-18 Smokeless [facility] 00:00:00 00:00:00 tobacco non-user Hospital History of Social 2022-06-18 2022-06-[address] function 00:00:00 00:00:00 Hospital Exposure to 2022-05-20 2022-05-30 Not sure [facility]-CoV-2 (event) 00:00:00 20:57:00 [facility] Sex Assigned At [birth year] [facility] 00:[facility]00 Hospital Smoking Status Start Date Stop Date Source Tobacco smoking consumption unknown [facility] Never smoked tobacco [facility] Medications Ordered Filled Start Stop [...] to 7 days. lidocaine 2021-2021- No 4mL Q.[id number] Apply 4 mL [facility] HCL 06-[id number] (lidocaine) 00:00: 04:59 3D 3 (three) [facility]osp[facility] 2 % 00 :00 times a l solution day for 3 days. Apply to cottonball and place it by toothache lidocaine 2021-0 2022- No 4mL Q.[id number] Apply 4 mL [facility] HCL 9-25 -[id number] (lidocaine) 00:00: 04:59 3D 3 (three) Hospita 2 % 00 :00 times a l solution day for 3 days. Apply to cottonball and place it by toothache lidocaine 2021-0 202- No 4mL Q.[id number] Apply 4 mL [facility] HCL 9-25 -[id number] (lidocaine) 00:00: 04:59 3D 3 (three) Hospita 2 % 00 :00 times a l solution day for 3 days. Apply to cottonball and place it by toothache lidocaine 2021-0 2021- No 4mL Q.[id number] Apply 4 mL [facility] HCL 9-25 -[id number] (lidocaine) 00:00: 04:59 3D 3 (three) Hospita 2 % 00 :00 times a l solution day for 3 days. Apply to cottonball and place it by toothache lidocaine 2021-0 2021- No 4mL Q.[id number] Apply 4 mL [facility] HCL 9-25 -[id number] (lidocaine) 00:00: 04:59 3D 3 (three) Hospita 2 % 00 :00 times a l solution day for 3 days. Apply to cottonball and place it by toothache lidocaine 2021-0 2022- No 4mL Q.[id number] Apply 4 mL [facility] HCL 9-25 -[id number] (lidocaine) 00:00: 04:59 3D 3 (three) Hospita 2 % 00 :00 times a l solution day for 3 days. Apply to cottonball and place it by toothache lidocaine 2021-0 2022- No 4mL Q.[id number] Apply 4 mL [facility] HCL 9-25 -[id number] (lidocaine) 00:00: 04:59 3D 3 (three) Hospita 2 % 00 :00 times a l solution day for 3 days. Apply to cottonball and place it by toothache lidocaine 2021- No 4mL Q.[id number] Apply 4 mL [facility] HCL 06-[id number] (lidocaine) 00:00: 04:59 3D 3 (three) Hospita 2 % 00 :00 times a l solution day for 3 days. Apply to cotton[place] and place it by toothache lidocaine 2021- No 4mL Q.[id number] Apply 4 mL [facility] HCL 06-[id number] (lidocaine) 00:00: 04:59 3D 3 (three) Hospita 2 % 00 :00 times a l solution day for 3 days. Apply to cottonball and place it by toothache lidocaine 2021- No 4mL Q.[id number] Apply 4 mL [facility] HCL 06-[id number] (lidocaine) 00:00: 04:59 3D 3 (three) Hospita 2 % 00 :00 times a l solution day for 3 days. Apply to cottonball and place it by toothache lidocaine 2021- No 4mL Q.[id number] Apply 4 mL [facility] HCL 06-18- [id number] topically st (lidocaine) 00:00: 04:59 3D 3 (three) Hospita 2 % 00 :00 times a l solution day for 3 days. Apply to cottonball and place it by toothache lidocaine 2021- No 4mL Q.[id number] Apply 4 mL [facility] HCL 06-[id number] (lidocaine) 00:00: 04:59 3D 3 (three) Hospita 2 % 00 :00 times a l solution day for 3 days. Apply to cottonball and place it by toothache butalbital- 2021- No 1{tbl} 1 tablet, Univers acetaminoph 05-31 Oral, ity of en-caff 02:30: 02:22 ONCE, 1 [place] (ESGIC) 00 :00 dose, On Medical 50-325-40 05/30/22 Bran ch mg tablet 1 at 2130, tablet CHRISTINA butalbital- Yes [id number] 1{tbl} Take 1 Univers acetaminoph 9-06 tablet [...] 30 days. LISINOPRIL 2022-0 Yes Take by [facility] ORAL 8-16 mouth. ity of 21:45: [address] Branch HYDROcodone 2022-0 Yes 1{tbl} Take 1 Un butch -acetaminop 8-16 tablet by ity of hen (NORObsorb) 21:45: mouth [place] 10-325 mg 20 every 6 Medical tablet (six) Branch hours as needed. LISINOPRIL 2022-0 Yes Take by [facility] ORAL 8-16 mouth. ity of 21:45: [place] 20 Medical Branch HYDROcodone 2022-0 Yes 1{tbl} [...] [facility] 00:00: Mem[facility] 00 l (LUF/LI V/SA) [place] 2018-0 Yes [facility] 1 tablet Enrique elkin 1-15 Irfan as needed l 00:00: Meloxicam 2018-0 Yes [facility] 1 tablet Memoria 1-15 Irfan l 00:00: [place] 2018-0 Yes [facility] 1 tablet Memor ia 1-15 Irfan as needed l 00:00: [place] 2018-0 Yes [place] 1 tablet Enrique elkin 1-15 Irfan as needed l 00:00: [place] 2018-0 Yes [place] 1 tablet Memor ia 1-15 Irfan as needed l 00:00: Meloxicam 2018-0 Yes [place] 1 tablet Memoria 1-15 Irfan l 00:00: [place] 2018-0 Yes [place] 1 tablet Enrique elkin 1-15 Irfan as needed l 00:00: [place] 2018-0 Yes [place] 1 tablet Memor ia 1-15 Irfan as needed l 00:00: Meloxicam 2018-0 Yes [place] 1 tablet Memoria 1-15 Irfan l 00:00: [place] 2018-0 Yes [place] 1 tablet Enrique elkin 1-15 Irfan as needed l 00:00: [place] 2018-0 Yes [place] 1 tablet Memor ia 1-15 Irfan as needed l 00:00: Meloxicam 2018-0 Yes [place] 1 tablet Memoria 1-15 Irfan l 00:00: [place] 2018-0 Yes [place] 1 tablet Enrique elkin 1-15 Irfan as needed l 00:00: [place] 2018-0 Yes [place] 1 tablet Memor ia 1-15 Irfan as needed l 00:00: Meloxicam 2018-0 Yes [place] 1 tablet Memoria 1-15 Irfan l 00:00: [place] 2018-0 Yes [place] 1 tablet Enrique elkin 1-15 Irfan as needed l 00:00: [place] 2018-0 Yes [place] 1 tablet Memor ia 1-15 Irfan as needed l 00:00: Meloxicam 2018-0 Yes [place] 1 tablet Memoria 1-15 Irfan l 00:00: [place] 2018-0 Yes [place] 1 tablet Enrique elkin 1-15 Irfan as needed l 00:00: [place] 2018-0 Yes [place] 1 tablet Memor ia 1-15 Irfan as needed l 00:00: Meloxicam 2018-0 Yes [place] 1 tablet Memoria 1-15 Irfan l 00:00: [place] 2018-0 Yes [place] 1 tablet Enrique elkin 1-15 Irfan as needed l 00:00: [place] 2018-0 Yes [place] 1 tablet Memor ia 1-15 Irfan as needed l 00:00: Meloxicam 2018-0 Yes [place] 1 tablet Memoria 1-15 Irfan l 00:00: Meloxicam 2018-0 Yes [place] 1 tablet Memoria 1-15 Irfan l 00:00: [place] 2018-0 Yes [place] 1 tablet Memor ia 1-15 Irfan as needed l 00:00: [place] 2018-0 Yes [place] 1 tablet Enrique elkin 1-15 Irfan as needed l 00:00: Meloxicam 2018-0 Yes [place] 1 tablet Memoria 1-15 Irfan l 00:00: [place] 2018-0 Yes [place] 1 tablet Memor ia 1-15 Irfan as needed l 00:00: [place] 2018-0 Yes [place] 1 tablet Enrique elkin 1-15 Irfan as needed l 00:00: Meloxicam 2018-0 Yes [place] 1 tablet Memoria 1-15 Irfan l 00:00: [place] 2018-0 Yes [place] 1 tablet Memor ia 1-15 Irfan as needed l 00:00: [place] 2018-0 Yes [place] 1 tablet Enrique elkin 1-15 Irfan as needed l 00:00: Meloxicam 2018-0 Yes [place] 1 tablet Memoria 1-15 Irfan l 00:00: [place] 2018-0 Yes [place] 1 tablet Memor ia 1-15 Irfan as needed l 00:00: [place] 2018-0 Yes [place] 1 tablet Enrique elkin 1-15 Irfan as needed l 00:00: Meloxicam 2018-0 Yes [place] 1 tablet Memoria 1-15 Irfan l 00:00: [place] 2018-0 Yes [place] 1 tablet Memor ia 1-15 Irfan as needed l 00:00: [place] 2018-0 Yes [place] 1 tablet Enrique elkin 1-15 Irfan as needed l 00:00: 00 acetaminoph 2015-0 Yes 1{tbl} Take 1 Tab [...] Systolic blood 2022-05-31 01:59:00 128 mm[facility]Hg[facility] 2022-05-31 01:59:00 81 mm[Hg] Unive [facility] Heart rate 2022-05-31 01:59:00 78 /min [facility] Body temperature 2022-05-31 01:59:00 36.94 Amisha [facility] Respiratory rate 2022-05-31 01:59:00 18 /min [facility] Body height 2022-05-31 01:59:00 165.1 cm [facility] Body weight 2022-05-31 01:59:00 127.007 kg [facility] BMI 2022-05-31 01:59:00 46.59 kg/m2 [facility] Oxygen saturation in 2022-05-31 01:59:00 95 /min [facility] Arterial blood by [facility] Pulse oximetry Branch Systolic blood 2022-05-10 02:39:00 148 mm[Hg] [facility] Diastolic blood 2022-05-10 02:39:00 84 mm[Hg] Unive [facility] Branch Heart rate 2022-05-10 02:39:00 70 /min Universi ty of [facility] Body temperature 2022-05-10 02:39:00 37.56 Amisha [facility] Respiratory rate 2022-05-10 02:39:00 18 /min Univ ersity of [facility] Body height 2022-05-10 02:39:00 162.6 cm [facility] [place] [facility] Body weight 2022-05-10 02:39:00 127.007 kg [facility] [place] [facility] BMI 2022-05-10 02:39:00 48.06 kg/m2 [facility] Oxygen saturation in 2022-05-10 02:39:00 95 /min University of Arterial blood by [facility] Pulse oximetry Branch Body weight 2022-04-23 20:11:00 133.131 kg Universi ty of [facility] BMI 2022-04-23 20:11:00 50.38 kg/m2 [facility] Systolic blood 2022-04-23 20:09:00 140 mm[Hg] Univer sity of pressure [place] [facility] Diastolic blood 2022-04-23 20:09:00 81 mm[Hg] Unive rsity of pressure [facility] Heart rate 2022-04-23 20:09:00 66 /min Universi ty of [facility] Body temperature 2022-04-23 20:09:00 36.72 Amisha Univ [facility] Respiratory rate 2022-04-23 20:09:00 17 /min Univ ersity of [facility] Body height 2022-04-23 20:09:00 162.6 cm [facility] [place] [facility] Oxygen saturation in 2022-04-23 20:09:00 97 /min University of Arterial blood by [facility] Pulse oximetry Branch Systolic blood 2022-06-18 15:20:24 157 mm[Hg] [facility] pressure Diastolic blood 2022-06-18 15:20:24 74 mm[Hg] Metho dist [facility] pressure Heart rate 2022-06-18 15:20:24 53 /min Methodis t [facility] Body temperature 2022-06-18 15:20:24 36.78 Amisha Meth [facility]ist [facility] Respiratory rate 2022-06-18 15:20:24 16 /min [facility] Oxygen saturation in 2022-06-18 15:20:24 97 /min [facility] Arterial blood by Pulse oximetry Body height 2022-06-18 12:48:00 162.6 cm [facility] Body weight 2022-06-18 12:48:00 127.007 kg [facility] BMI 2022-06-18 12:48:00 48.06 kg/m2 [facility] Systolic blood 2022-05-21 00:33:00 132 mm[Hg] [facility] pressure Diastolic blood 2022-05-21 00:33:00 64 mm[Hg] [facility] pressure Heart rate 2022-05-21 00:33:00 64 /min [facility] Oxygen saturation in 2022-05-21 00:33:00 98 /min [facility] Arterial blood by Pulse oximetry Body temperature 2022-05-20 23:53:12 36.17 Amisha [facility] Respiratory rate 2022-05-20 23:53:12 18 /min [facility] Body height 2022-05-20 23:52:00 162.6 cm [facility] Body weight 2022-05-20 23:52:00 127.007 kg [facility] BMI 2022-05-20 23:52:00 48.06 kg/m2 [facility] Weight 2017-10-25 15:00:00 [facility] Height 2017-10-25 15:00:00 [facility] Temperature Oral (F) 2017-10-25 15:00:00 97.8 F [facility] Heart Rate 2017-10-25 15:00:00 [facility] [place] Diastolic (mm Hg) 2017-10-25 15:00:00 Mem orial [place] Systolic (mm Hg) 2017-10-25 15:00:00 Enrique [facility] Body Temperature 2017-10-21 12:00:00 97.5 F [facility] (LUF/BLANCA/SA) Respiratory Rate 2017-10-21 12:00:00 20 /min [facility] (F/BLANCA/SA) O2% BldC Oximetry 2017-10-21 12:00:00 98 % [facility] (F/BLANCA/SA) BP Systolic 2017-10-21 12:00:00 132 mm[Hg] [facility] (LUF/BLANCA/SA) BP Diastolic 2017-10-21 12:00:00 78 mm[Hg] [facility] (LUF/BLANCA/SA) Height 2017-10-21 12:00:00 64 in [facility] (LUF/BLANCA/SA) Weight Measured 2017-10-21 12:00:00 282.19 lbs MOUSTAPHA Simental [facility] (LUF/BLANCA/SA) BMI (Body Mass 2017-10-21 12:00:00 48.7 [facility] Index) [facility] (LUF/BLANCA/SA) Weight 2017-10-08 15:45:00 [facility] [place] Height 2017-10-08 15:45:00 [facility] Temperature Oral (F) 2017-10-08 15:45:00 96.8 F [facility] [place] Heart Rate 2017-10-08 15:45:00 [facility] Diastolic (mm Hg) 2017-10-08 15:45:00 [facility] [place] Systolic (mm Hg) 2017-10-08 15:45:00 Enrique rial [facility] Procedures Procedure Date / Time Performing Clinician Source Performed CT MAXILLOFACIAL WO 2022-06-18 14:48:32 Frida Patton [facility] CONTRAST CONSENT/REFUSAL FOR 2022-05-31 01:55:15 Doctor Unassigned, No [facility] [place] [facility] Name Medical Branch CT CERVICAL SPINE WO 2022-05-21 01:24:51 BejaranoKaycee Rubalc[facility] HEAD WO CONTRAST 2022-05-21 01:15:40 DarciKaycee Rubalcava [facility] POC GLUCOSE 2022-05-21 00:33:00 [facility] NOTICE OF PRIVACY 2022-05-10 02:37:04 Doctor Unassigned, No [facility] [place] PRACTICES Name Medical Branch CONSENT/REFUSAL FOR 2022-05-10 02:35:02 Doctor Unassigned, No [facility] [place] [facility] Name Medical Branch CONSENT/REFUSAL FOR 2022-04-23 20:00:28 Doctor Unassigned, No [facility] [place] [facility] TREATMENT Name Medical Branch Plan of Care Planned Activity Planned Date Details Comments Source Future Scheduled 2023-07-06 Screening for [facility] Test 06:35:42 malignant neoplasm of colon (procedure) [code = 892317190] Future Scheduled 2023-07-06 Screening for [facility] Test 06:35:42 malignant neoplasm of colon (procedure) [code = 060009916] Future Scheduled 2023-07-06 Screening for [facility] Test 06:35:42 malignant neoplasm of colon (procedure) [code = 409192187] Future Scheduled 2023-07-06 Hepatitis C screening [facility] Test 06:35:42 (procedure) [code = 284369574] Future Scheduled 2023-07-06 Screening for [facility] Test 06:35:42 malignant neoplasm of colon (procedure) [code = 605407485] Future Scheduled 2023-07-06 Screening for [facility] Test 06:35:42 malignant neoplasm of colon (procedure) [code = 914016093] Future Scheduled 2023-07-06 COVID-19 VACCINE (3 - [facility] Test 06:35:42 ) [code = COVID-19 VACCINE (3 - season)] Future Scheduled 2023-07-06 [facility]FL[facility]ZA [facility]ACCINE [facility] 06:35:42 (#1) [code = INFLUENZA VACCINE (#1)] Future Scheduled 2023-07-06 RSV VACCINES > 60 YR [facility] Test 06:35:42 (1 - 1-dose 60+ series) [code = RSV VACCINES > 60 YR (1 - 1-dose 60+ series)] Future Scheduled 2023-06-24 [facility] Test 02:49:40 malignant neoplasm of colon (procedure) [code = 567746963] Future Scheduled 2023-06-24 [facility] Test 02:49:40 malignant neoplasm of colon (procedure) [code = 346798138] Future Scheduled 2023-06-24 [facility] Test 02:49:40 malignant neoplasm of colon (procedure) [code = 165594340] Future Scheduled 2023-06-24 Hepatitis C screening [facility] Test 02:49:40 (procedure) [code = 142619756] Future Scheduled 2023-06-24 COVID-19 VACCINE ([facility] - [facility] Test 02:49:40 Pfizer series) [code = COVID-19 VACCINE (3 - Pfizer series)] Future Scheduled 2023-06-24 Screening for [facility] Test 02:49:40 malignant neoplasm of colon (procedure) [code = 487875134] Future Scheduled 2023-06-24 Screening for [facility] Test 02:49:40 malignant neoplasm of colon (procedure) [code = 567694353] Future Scheduled 2023-06-24 [facility]ZA [facility]ACCINE [facility] 02:49:40 (#1) [code = INFLUENZA VACCINE (#1)] Future Scheduled 2023-06-24 Screening [facility] Test 02:49:40 malignant neoplasm of colon (procedure) [code = 074119273] Future Scheduled 2023-06-24 Screening for [facility] Test 02:49:40 malignant neoplasm of colon (procedure) [code = 332930285] Future Scheduled 2023-06-24 Screening for [facility] Test 02:49:40 malignant neoplasm of colon (procedure) [code = 544055332] Future Scheduled 2023-06-24 [facility] Test 02:49:40 (procedure) [code = 795902698] Future Scheduled 2023-06-24 COVID-19 VACCINE (3 - [facility] 02:49:40 Pfizer series) [code = COVID-19 VACCINE (3 - Pfizer series)] Future Scheduled 2023-06-24 Screening [facility] Test 02:49:40 malignant neoplasm of colon (procedure) [code = 476531665] Future Scheduled 2023-06-24 [facility]ening [facility] Test 02:49:40 malignant neoplasm of colon (procedure) [code = 389883694] Future Scheduled 2023-06-24 [facility]ACCINE [facility] 02:49:40 (#1) [code = INFLUENZA VACCINE (#1)] Future Scheduled 2023-05-28 Scre[facility] Test 18:05:11 malignant neoplasm of colon (procedure) [code = 582062168] Future Scheduled 2023-05-28 Scre[facility] Test 18:05:11 malignant neoplasm of colon (procedure) [code = 652643821] Future Scheduled 2023-05-28 [facility] Test 18:05:11 malignant neoplasm of colon (procedure) [code = 208547377] Future Scheduled 2023-05-28 [facility] Test 18:05:11 (procedure) [code = 157659639] Future Scheduled 2023-05-28 COVID-19 VACCINE (3 - [facility] Test 18:05:11 Pfizer series) [code = COVID-19 VACCINE (3 - Pfizer series)] Future Scheduled 2023-05-28 Screening for [facility] Test 18:05:11 malignant neoplasm of colon (procedure) [code = 141315683] Future Scheduled 2023-05-28 Screening for [facility] Test 18:05:11 malignant neoplasm of colon (procedure) [code = 371344390] Future Scheduled 2023-05-28 [facility]ACCINE [facility] 18:05:11 (#1) [code = INFLUENZA VACCINE (#1)] Future Scheduled 2023-04-27 Scre[facility] Test 11:13:08 malignant neoplasm of colon (procedure) [code = 435654099] Future Scheduled 2023-04-27 Screening [facility] Test 11:13:08 malignant neoplasm of colon (procedure) [code = 020865411] Future Scheduled 2023-04-27 [facility] Test 11:13:08 malignant neoplasm of colon (procedure) [code = 290016628] Future Scheduled 2023-04-27 [facility] Test 11:13:08 (procedure) [code = 246730823] Future Scheduled 2023-04-27 COVID-19 VACCINE (3 - [facility] Test 11:13:08 Pfizer series) [code = COVID-19 VACCINE (3 - Pfizer series)] Future Scheduled 2023-04-27 Screening [facility] Test 11:13:08 malignant neoplasm of colon (procedure) [code = 110785563] Future Scheduled 2023-04-27 Screening [facility] Test 11:13:08 malignant neoplasm of colon (procedure) [code = 405325255] Future Scheduled 2023-04-27 [facility]ZA [facility]ACCINE [facility] 11:13:08 [code = INFLUENZA VACCINE] Future Scheduled 2023-04-27 Screening [facility] Test 11:13:08 malignant neoplasm of colon (procedure) [code = 359361120] Future Scheduled 2023-04-27 Screening for [facility] Test 11:13:08 malignant neoplasm of colon (procedure) [code = 186274488] Future Scheduled 2023-04-27 [facility] Test 11:13:08 malignant neoplasm of colon (procedure) [code = 355934543] Future Scheduled 2023-04-27 [facility] 11:13:08 (procedure) [code = 037413117] Future Scheduled 2023-04-27 COVID-19 VACCINE (3 - [facility] Test 11:13:08 Pfizer series) [code = COVID-19 VACCINE (3 - Pfizer series)] Future Scheduled 2023-04-27 Scre[facility] Test 11:13:08 malignant neoplasm of colon (procedure) [code = 238531965] Future Scheduled 2023-04-27 Scre[facility] Test 11:13:08 malignant neoplasm of colon (procedure) [code = 376941708] Future Scheduled 2023-04-27 [facility]ZA [facility]INE [facility] 11:13:08 [code = INFLUENZA VACCINE] Future Scheduled 2023-01-09 [facility] screening [facility] Test 02:12:34 (procedure) [code = 689030842] Future Scheduled 2023-01-09 COVID-19 VACCINE (3 - [facility] 02:12:34 Booster for Pfizer series) [code = COVID-19 VACCINE (3 - Booster for Pfizer series)] Future Scheduled 2023-01-09 COLONOSCOPY SCREENING [facility] Test 02:12:34 [code = COLONOSCOPY SCREENING] Future Scheduled 2023-01-09 [facility]ZA [facility]ACCINE [facility] 02:12:34 [code = INFLUENZA VACCINE] Future Scheduled 2023-01-09 [facility] Test 02:12:34 (procedure) [code = 799352290] Future Scheduled 2023-01-09 COVID-19 VACCINE (3 - [facility] 02:12:34 Booster for Pfizer series) [code = COVID-19 VACCINE (3 - Booster for Pfizer series)] Future Scheduled 2023-01-09 [facility] Test 02:12:34 [code = COLONOSCOPY SCREENING] Future Scheduled 2023-01-09 [facility]ZA [facility]ACCINE [facility] 02:12:34 [code = INFLUENZA VACCINE] Future Scheduled 2022-09-08 Hep[facility] C screening [facility] Test 15:04:49 (procedure) [code = 350666991] Future Scheduled 2022-09-08 COVID-19 VACCINE (3 - [facility] 15:04:49 Booster for Pfizer series) [code = COVID-19 VACCINE (3 - Booster for Pfizer series)] Future Scheduled 2022-09-08 [facility]ZA [facility]ACCINE [facility] 15:04:49 [code = INFLUENZA VACCINE] Future Scheduled 2022-09-08 Hepatitis C screening [facility] Test 15:04:49 (procedure) [code = 351112111] Future Scheduled 2022-09-08 COVID-19 VACCINE (3 - [facility] 15:04:49 Booster for Pfizer series) [code = COVID-19 VACCINE (3 - Booster for Pfizer series)] Future Scheduled 2022-09-08 [facility]ZA [facility]ACCINE [facility] 15:04:49 [code = INFLUENZA VACCINE] Future Scheduled 2022-09-08 Hep[facility] C screening [facility] Test 15:04:49 (procedure) [code = 634763889] Future Scheduled 2022-09-08 COVID-19 VACCINE ([facility] 15:04:49 Booster for Pfizer series) [code = COVID-19 VACCINE (3 - Booster for Pfizer series)] Future Scheduled 2022-09-08 [facility]ACCINE [facility]04:49 [code = INFLUENZA VACCINE] Future Scheduled 2022-09-08 Hepatitis C screening [facility] Test 15:04:49 (procedure) [code = 765901832] Future Scheduled 2022-09-08 COVID-19 VACCINE (3 - [facility] Test 15:04:49 Booster for Pfizer series) [code = COVID-19 VACCINE (3 - Booster for Pfizer series)] Future Scheduled 2022-09-08 INFLUENZA VACCINE [facility] 15:04:49 [code = INFLUENZA VACCINE] Future Scheduled 2022-06-18 HEPATITIS B VACCINES [facility] Test 09:25:33 (1 of 3 - 3-dose series) [code = HEPATITIS B VACCINES (1 of 3 - 3-dose series)] Future Scheduled 2022-06-18 Hepatitis C screening [facility] Test 09:25:33 (procedure) [code = 625212357] Future Scheduled 2022-06-18 COVID-19 VACCINE (3 - [facility] Test 09:25:33 Booster for Pfizer series) [code = COVID-19 VACCINE (3 - Booster for Pfizer series)] Future Scheduled 2022-06-18 INFLUENZA VACCINE Method [facility] Test 09:25:33 [code = INFLUENZA VACCINE] Future Scheduled 2022-06-18 HEPATITIS B VACCINES [facility] Test 09:25:33 (1 of 3 - 3-dose series) [code = HEPATITIS B VACCINES (1 of 3 - 3-dose series)] Future Scheduled 2022-06-18 Hepatitis C screening [facility] Test 09:25:33 (procedure) [code = 984006572] Future Scheduled 2022-06-18 COVID-19 VACCINE (3 - [facility] Test 09:25:33 Booster for Pfizer series) [code = COVID-19 VACCINE (3 - Booster for Pfizer series)] Future Scheduled 2022-06-18 INFLUENZA VACCINE [facility] Test 09:25:33 [code = INFLUENZA VACCINE] Future Scheduled 2022-06-18 HEPATITIS B VACCINES Met [facility] Test 09:25:33 (1 of 3 - 3-dose series) [code = HEPATITIS B VACCINES (1 of 3 - 3-dose series)] Future Scheduled 2022-06-18 Hepatitis C screening [facility] Test 09:25:33 (procedure) [code = 688007186] Future Scheduled 2022-06-18 COVID-19 VACCINE (3 - [facility] Test 09:25:33 Booster for Pfizer series) [code = COVID-19 VACCINE (3 - Booster for Pfizer series)] Future Scheduled 2022-06-18 INFLUENZA VACCINE [facility] Test 09:25:33 [code = INFLUENZA VACCINE] Future Scheduled 2022-06-09 HEPATITIS B VACCINES Met [facility] Test 18:36:38 (1 of 3 - 3-dose series) [code = HEPATITIS B VACCINES (1 of 3 - 3-dose series)] Future Scheduled 2022-06-09 Hepatitis C screening [facility] Test 18:36:38 (procedure) [code = 080998023] Future Scheduled 2022-06-09 COVID-19 VACCINE (3 - [facility] Test 18:36:38 Booster for Pfizer series) [code = COVID-19 VACCINE (3 - Booster for Pfizer series)] Future Scheduled 2022-06-09 INFLUENZA VACCINE [facility] Test 18:36:38 [code = INFLUENZA VACCINE] Future Scheduled 2022-05-25 HEPATITIS B VACCINES Met [facility] Test 07:52:22 (1 of 3 - 3-dose series) [code = HEPATITIS B VACCINES (1 of 3 - 3-dose series)] Future Scheduled 2022-05-25 Hepatitis C screening [facility] Test 07:52:22 (procedure) [code = 584687946] Future Scheduled 2022-05-25 COVID-19 VACCINE (3 - [facility] Test 07:52:22 Booster for Pfizer series) [code = COVID-19 VACCINE (3 - Booster for Pfizer series)] Future Scheduled 2022-05-25 INFLUENZA VACCINE [facility] Test 07:52:22 [code = INFLUENZA VACCINE] Future Scheduled 2022-05-25 HEPATITIS B VACCINES Met [facility] Test 07:52:22 (1 of 3 - 3-dose series) [code = HEPATITIS B VACCINES (1 of 3 - 3-dose series)] Future Scheduled 2022-05-25 Hepatitis C screening [facility] Test 07:52:22 (procedure) [code = 056432620] Future Scheduled 2022-05-25 COVID-19 VACCINE (3 - [facility] Test 07:52:22 Booster for Pfizer series) [code = COVID-19 VACCINE (3 - Booster for Pfizer series)] Future Scheduled 2022-05-25 INFLUENZA VACCINE Method [facility] Test 07:52:22 [code = INFLUENZA VACCINE] Encounters Start End Encounter Admission Attending Care Care Encounter Source Date/Time Date/Time Type Type Clinicians Facility Department ID 2023-07-13 Outpatient [id number] 8FC7 7D6D-E [facility] 01:23:14 Y3PR-3B8V CA-9Q4K-3U3 7CA-4E7E- 8 l -7R8X-98D B-06M348630 B9X-74G918 [place] [id number] 71F 05914V 2023-07-02 Outpatient 1BBEU2E6- 8NKXM1V0-36 9DBE E8E3-0 Memoria 08:48:04 061C-482C 1C-482C-8C0 61C-482C- 8 l -2J9I-102 F-885JTP758 N7L-895CPV Tavo PBD926S5D C8D 617C8D 2023-06-24 Outpatient 13G1QNVV- 14J5CLYT-53 51C1 AAAB-9 Memoria 02:49:59 9981-479A 81-479A-962 981-479A- 9 l -9621-347 1-2400G72LB 621-3472C3 [place] 5V96FKTNJ EAC 9EBEAC 2023-06-03 Outpatient [id number] 1108 20D3-5 Memoria 21:49:39 5824-4CD0 24-3PD5-QA8 824-4CD0- B l -YY15-7HV 5-3OM7CK433 P19-7EK6JG [place] [id number] 99E 78340N 2023-05-13 Outpatient 7MH6AL48- 7UA3ME80-92 9FB8 AE55-2 Memoria 00:04:30 46O3-0R99 E3-2C00-612 1R8-0F86- 8 l -818B-D48 B-Q02G61328 18B-D48E11 Tavo D59828E21 B77 601B77 2023-04-28 Outpatient [id number]- KI660L60-3Z BF11 8E44-4 Memoria 01:56:12 7W80-22C6 29-14G6-46B N84-78I3- 8 l -25B1-013 6-0692506FD 7A2-264226 [place] 6451NP19M 55D 4BD55D 2023-02-13 Outpatient [id number]- 69V9F691-V6 74F9 E380-D [facility] 07:15:33 P267-6DJ4 14-9UI8-PS2 414-4AA9- A l -VO3U-5YE A-4CDMJ3S32 Y0E-0QBBY4 Tavo SR9W31G5D F4B A56F4B 2023-01-21 Outpatient 40J772R9- 02N487C2-9C 16F3 10F0-0 [facility]oria 18:12:35 2HR9-81X2 C8-01E9-25U EC8-41B6- 8 l -84FA-CDD A-GAE467UVC 4FA-DVP173 Tavo 426YWN938 063 CFR953 2022-12-02 Outpatient 60W562O0- 53H023I5-53 04F8 97C6-9 Memoria 21:50:02 977E-4F82 7E-1Q80-182 77E-4F82- 8 l -8693-8E8 3-5U4L95075 693-8E8C26 Tavo C238012J4 6F6 1306F6 2022-11-12 Outpatient [id number]- [id number]-DR F702 5ED6-A [facility] 01:29:42 ADA0-43F6 A0-56K7-A21 DA0-43F6- A l -Q089-85H 6-94I7C03BJ 116-87F8D9 Tavo 0N75VTC5T C1D 5BBC1D 2022-10-16 Outpatient [id number]- 8W740OKU-0K 7A87 7EEE-1 [facility] 06:48:40 3KW6-7934 B4-4798-8A7 AB4-4798- 8 l -8O7Y-62R F-17P8RG218 B1X-74Z9BA Tavo 1SZ924D05 D64 698D64 2022-09-25 Outpatient [id number]- 6DR5845A-85 3BD2 723F-9 Memoria 18:40:25 19Q0-7O56 D1-6S27-93B 4P4-8I94- 8 l -89BD-1A5 D-4X4HKVR26 9BD-1A5DCD Tavo OGLX197W5 6A3 E256A3 2022-07-11 Outpatient 51Y1R23Y- 77F9C56M-80 94C6 F00D-5 [facility] 20:33:16 00B7-38DN F4-47BE-8F8 5L4-93UU- 8 l -6F4F-64S F-96EMIB250 Z1K-28AAPQ Tavo FSO172BWX FAD 309FAD 2022-07-05 Outpatient [id number]- 9594Q3M5-31 3842 B7D1-4 [facility] 21:55:55 92Z2-97M3 E6-14C5-S12 3J8-71L3- A l -T00G-4B5 A-5R179IPZ7 53A-8P447Q Tavo 96DWB0B7U F6F BA1F6F 2022-06-20 Outpatient ZWVKP6AN- SWMWZ9GT-I7 FEAA B0FE-B [facility] 20:55:03 Y47D-3SYT 9E-4FBC-9E6 39E-4FBC- 9 l -6Q38-G57 0-G84LQR488 E08-B71JFT Tavo ZOZ3385D0 7B9 9867B9 2022-06-18 Outpatient [id number]- 6W4743ND-5O 4A16 41FC-3 Memoria 07:44:31 8Q96-1HKX 17-4EED-9D8 W49-4CDK- 9 l -5R16-Q5C 1-B6YX076I9 P90-P1KL49 Tavo G450E3E80 A09 2A0A09 2022-06-14 Outpatient [id number]- 7K3784K5-Z5 4F66 73A9-D [facility] 22:44:21 U29S-7H93 0A-5J97-630 90A-4A19- 9 l -9064-22B 4-87O556H6I 064-34G117 Tavo 519H4T249 120 H2T826 2022-06-08 Outpatient [id number]- L5988CL7-M0 F051 4BD7-F [facility] 21:22:44 C49A-0RV5 4B-8XC0-736 44B-4BC4- 8 l -819B-E8C B-Y2G69643Z 19B-Q9D983 Tavo 22805ON32 C63 53AC63 2022-06-03 Outpatient DYMM29T3- RESQ03Z7-11 ABCB 93A3-4 Memoria 01:33:52 4565-43DE 65-43DE-92E 565-43DE- 9 l -03U6-060 7-211AM56CZ 6V2-383NN3 Tavo RP47CY679 217 0PG542 2022-05-30 Outpatient [id number]- 058AT198-7U 114E F493-4 Memoria 20:55:52 6V16-035I 39-438E-9B8 Y41-819B- 9 l -3D14-4BN 0-6RXD2S0PW T58-3DQO5E Tavo H2E3WEI83 F41 4BEF41 2022-05-20 Outpatient [id number]- 6X66Q97M-1X 5C46 A21D-1 Memoria 18:55:15 1FAA-4CF3 AA-3HM6-27Y FAA-4CF3- 8 l -80ED-A77 D-X23N62658 0ED-A77A25 [place] [id number] 664 599933 1576-09-27 Outpatient [id number]- [id number] 5C72 5329-4 Memoria 14:21:52 98P8-5WOJ F0-4CEA-948 1E4-2LJK- 9 l -9486-B77 6-G98GGV9R3 486-B77BBD Tavo VSK5A06I5 4C4 1C14C4 2021-06-20 Outpatient 960KWK91- 592HQR67-14 596A BE16-8 Memoria 14:21:45 8434-49AE 34-49AE-95B 434-49AE- 9 l -95BD-57D D-32PT27J6C 5BD-57DA06 Tavo X83O8U886 032 O1T103 2021-05-30 Outpatient [id number]- [id number]-EK CE68 9471-D Memoria 15:44:20 DAF5-4596 F5-4596-BFE AF5-4596- B l -BFE1-51A 1-08IWB31BP FE1-51ACA1 Tavo FZ65IV5IO 1BA 9CA1BA 2020-01-20 Inpatient [facility] [id number] [facility] 15:25:00 21 [facility] 2019-12-16 Inpatient [facility] [id number] [facility] 17:49:00 32 [facility] 2019-12-12 Inpatient [facility] [id number] [facility] 08:32:00 83 [facility] 2019-11-27 Inpatient [facility] [id number] [facility] 07:33:00 06 [facility] 2022-06-18 2022-06-18 Emergency Rodolfo, 1.2.840.1 [id number] Methodi 07:52:00 10:32:[address] [facility] 3.430.2.7 [facility] .3.708871 l .8 2022-05-30 2022-05-30 Emergency X RALPH [facility] ERT [id number] Univers 21:02:00 21:53:00 ANGIE ibrahim [facility] 2022-05-30 2022-05-30 Emergency Ralph [facility] 1.2.734.347 9808 2067 Univers 21:02:00 21:53:00 Angie RUSSO 350.1.13.[address] [facility] 4.2.7.2.686 [facility] [id number] [place] [address] [address] 2022-05-20 2022-05-20 Emergency Bejarano-Kings 1.2.840.1 [id number] Methodi 19:29:00 21:04:[address] 3.430.2.7 Hospit a .3.015448 l .8 2022-05-20 2022-05-20 Travel 1.2.840.1 1.2.154.764 1745 357017 Methodi 00:00:00 00:00:[address] 3.430.2.7 0.2.7.3.698 Ho spita .3.312736 084.8 l .8 2022-05-09 2022-05-09 Emergency X [facility] E[facility] [id number] Univers 21:45:00 21:46:00 CHER ibrahim [facility] 2022-05-09 2022-05-09 Emergency Jessy [facility] 1.2.840.114 [id number] Univers 21:45:00 21:46:00 Cher RUSSO 350.1.13.10 ity of [place] 4.2.7.2.686 [facility] [id number] [facility] [address] 2022-04-23 2022-04-23 Emergency X RIDDLE, [facility] ERT [id number] Univers 15:11:00 15:52:00 STEPHANLEIDA it y of [facility] 2022-04-23 2022-04-23 Emergency [place], [facility] 1.2.093.137 9144 2241 Univers 15:11:00 15:52:00 Bo RUSSO 350.1.13.10 ity [facility] 4.2.7.2.686 [facility] [id number] [facility] [address] 2021-09-14 2021-09-14 Outpatient FERGUSON_A[place]LIANO [place] [address] [address] [place] 02:13:00 02:13[place] [address] [facility] 2021-09-08 2021-09-08 Outpatient [place] [address] [place] 02:19:00 02:19:00 [place] [address] [facility] 2017-11-01 2017-11-01 Outpatient Family Family [id number] [facility]inic 10:47:00 10:47:00 [facility] 2017-10-25 2017-10-25 Outpatient Family Family [id number] eClinic 09:00:00 09:00:00 [facility] 2017-10-21 2017-10-21 PAIN IN [facility] [id number] 11:51:00 14:48:00 [facility] 2017-10-21 2017-10-21 PAIN IN [facility] [id number] [facility] 11:51:00 14:48:00 [facility], [address], (LUF[place] [address] 2017-10-08 2017-10-08 Outpatient Family Family [id number] eClinic 09:45:00 09:45:00 [facility] Clinic Results Test Description Test Time Test Comments Results Result Comments Source POC glucose 2022-05-21 00:34:00 Test Item Value Reference Range Interpretation Comme nts POC glucose (test code = 43244-9) 217 mg/dL 65-100 H Plastic Boat Buffer Name: Zach BinGalina ID: [id number] Lab Interpretation (test code = Abnormal 04813-8) [facility] [id number] 00:34:00 Test Item Value Reference Range Interpretation Comments POC glucose (test code = 217 mg/dL 65-100 H Ope rator Name: Zach 04716-1) [employer]inos[employer] ID: [id number] Lab Interpretation (test Abnormal code = 07493-1) [facility] [id number] 00:34:00 Test Item Value Reference Range Interpretation Comments POC glucose (test code = 217 mg/dL 65-100 H Ope rator Name: Zach 35329-2) [employer] ID: [id number] Lab Interpretation (test Abnormal code = 31241-6) [facility]2022-08-28 00:34:00 Test Item Value Reference Range Interpretation Comments POC glucose (test code = 217 mg/dL 65-100 H Ope rator Name: Zach 53178-1) [employer] ID: [id number] Lab Interpretation (test Abnormal code = 31390-9) [facility] [id number] 00:34:00 Test Item Value Reference Range Interpretation Comments POC glucose (test code = 217 mg/dL 65-100 H Ope rator Name: Zach 79399-5) [employer] ID: [id number] Lab Interpretation (test Abnormal code = 91611-3) [facility] [id number] 00:34:00 Test Item Value Reference Range Interpretation Comments POC glucose (test code = 217 mg/dL 65-100 H Ope rator Name: Zach 36637-8) [employer] ID: [id number] Lab Interpretation (test Abnormal code = 48676-3) [facility] [id number] 00:34:00 Test Item Value Reference Range Interpretation Comments POC glucose (test code = 217 mg/dL 65-100 H Ope rator Name: Zach Duggan53-7) [employer] ID: [id number] Lab Interpretation (test Abnormal code = 92365-9) [facility] [id number] 00:34:00 Test Item Value Reference Range Interpretation Comments POC glucose (test code = 217 mg/dL 65-100 H Ope rator Name: Zach Johnston) [employer]inos[employer] ID: [id number] Lab Interpretation (test Abnormal code = 30765-0) [facility]2022-08-28 00:34:00 Test Item Value Reference Range Interpretation Comments POC glucose (test code = 217 mg/dL 65-100 H Ope rator Name: Zach Johnston) [employer]inosDevice ID: [id number] Lab Interpretation (test Abnormal code = 29496-0) [facility]2022-08-28 00:34:00 Test Item Value Reference Range Interpretation Comments POC glucose (test code = 217 mg/dL 65-100 H Ope rator Name: Zach Johnston) [employer]inosDevice ID: [id number] Lab Interpretation (test Abnormal code = 04224-3) [facility]2022-08-28 00:34:00 Test Item Value Reference Range Interpretation Comments POC glucose (test code = 217 mg/dL 65-100 H Ope rator Name: Zach Johnston) [employer]inosDevice ID: [id number] Lab Interpretation (test Abnormal code = 07847-0) [facility]2022-08-28 00:34:00 Test Item Value Reference Range Interpretation Comments POC glucose (test code = 217 mg/dL 65-100 H Ope rator Name: Zach Johnston) [employer]inosDevice ID: [id number] Lab Interpretation (test Abnormal code = 05491-4) [facility]2022-08-28 00:34:00 Test Item Value Reference Range Interpretation Comments POC glucose (test code = 217 mg/dL 65-100 H Ope rator Name: Zach Lieberman7) [employer]inosDevice ID: [id number] Lab Interpretation (test Abnormal code = 80496-2) [facility]2022-08-28 00:34:00 Test Item Value Reference Range Interpretation Comments POC glucose (test code = 217 mg/dL 65-100 H Ope rator Name: Zach 88135-9) [employer]inosDevice ID: [id number] Lab Interpretation (test Abnormal code = 76513-2) [facility] HEAD/BRAIN W/O [id number] 18:19:00 Patient Name: VIMAL BARROSO Unit No: [id number] EXAMS: CPT CODE: [id number] CT HEAD/BRAIN W/O CONT 25413 CLINICAL INFORMATION: Moderate frontal headaches. Coughing. Dictation [...] 45.04 DLP: 757.79 Trnscrpt: 12/16/2019 (1818) [facility] [place] NAME: VIMAL BARROSO [address] [place] [address] PHYS: Germania Isaacs NP [place], [place] [address] : 1975 AGE: 44 SEX: M LOC: B.ERS PHONE #: [phone] EXAM DATE: 12/16/2019 STATUS: PREER FAX #: [phone] RAD #: D/C DT PAGE 1 Signed Report Patient Name: VIMAL BARROSO Unit No: [id number] EXAMS: CPT CODE: [id number] CT HEAD/BRAIN W/O CONT 49454 (Continued) Orig Print D/T: S: 12/16/2019 (182) LORETA Lopez NAME: VIMAL BARROSO [address] [place] [address] PHYS: Germania Isaacs [place] [id number] : 1975 AGE: 44 SEX: M LOC: B.ERS PHONE #: [phone] EXAM DATE: 12/16/2019 STATUS: PRE ER FAX #: [phone] RAD #: D/C DT PAGE 2 Signed Report- XR CHEST 2 [id number] 09:11:00 FAX: Germania Engel TECHNOLOGY SALES REPRESENTATIVE [phone] [place]: E St: REG Patient Name: VIMAL BARROSO Unit No: [id number] EXAMS: CPT CODE: [id number] XR CHEST 2 V 81591 - XR CHEST 2 V LOCATION: T18 INDICATION:Cough The lungs are well expanded and free of infiltrates. The costophrenic recesses are sharp without effusion. The heart, mediastinum and bony structures are within normal limits. Cervical spine fusion plate noted. IMPRESSION: No active disease. at 0911 Reportedand signed by: Zach Rubi D.O. CC: Germania Engel TECHNOLOGY SALES REPRESENTATIVE Dictated Date/Time: 12/12/2019 (910)Technologist: Shannan Schmitz Transcribed Date/Time: 12/12/2019 (910) By: Joanna Orig Print D/T: S: 12/12/2019 (913) LORETA Lopez NAME: VIMAL BARROSO [address] [place] [address] PHYS: [place]ore [place] [id number] : 1975 AGE: 44 SEX: M LOC: B.ERS PHONE #: [phone] EXAM DATE: 12/12/2019 STATUS: REG ER FAX #: [phone] RAD NO: DC Dt: PAGE 1 Signed ReportSPINE LUMBAR [id number] 13:37:[address] [address]QKRIJQQIEL IMAGING REPORTPatient Name: Lili BARROSO of Service: [id number]: 41 Sex: M Order #: [id number] [facility] 1975 [facility] Number: [id number] Record Number: [id number] Hospital Number: [id number] Physician: Agatha CROW Physician: RUBY TREVIÑO LUMBAR [...]
[2023-07-13] MEDS ORDERED: KETOROLAC 30 MG/ML INJ ONE (01:52)
[2023-07-13] MEDS ORDERED: predniSONE 20 MG TAB ONE (01:52)
--- NOTE | 2023-07-13 02:19 | EDPHYS ---
Physician Documentation [facility] Name: Ruben Alamo Age: 47 yrs Sex: Male : 1975 Arrival Date: 07/13/2023 Time: : Bed 11 Private MD: ED Physician Joseluis Ramirez HPI: 07/13 01:30 This 47 yrs old Black Male presents to ER via Ambulatory with complaints of Shoulder ec2 Pain, Fall Injury. 01:30 Patient arrives today for evaluation after a fall while getting out of his pickup ec2 truck. Patient states that he was getting out of his pickup truck, subsequently slipped and fell and landed on his left shoulder. Patient complaining of left shoulder pain. Patient reports no loss of consciousness, no blood thinner use, no head or neck pain. Patient reports no chest pain, no shortness of breath, no abdominal pain or other concerns. Patient has been ambulatory without issue. Injury happened approximately 9 hours ago.. Historical: - Allergies: : Iodine; lg3 01:27 PENICILLINS; lg3 01:27 SHELLFISH; lg3 - Home Meds: : [place] Oral [Active]; lg3 - PMHx: :27 Chronic pain; headache; Hypertensive disorder; lg3 - PSHx: :27 facial reconstruction; Spinal surgery; lg3 - Immunization history:: Adult Immunizations up to date, Client reports receiving the 2nd dose of the Covid vaccine, Flu vaccine is up to date. - Social history:: Smoking status: Patient reports use of chewing tobacco. Patient denies any tobacco usage or history of. Patient/guardian denies using alcohol, street drugs. ROS: 01:30 Constitutional: shoulder injury ec2 Exam: : Constitutional: GEN: NAD Head: atraumatic Eyes: EOMI Ears: External ears are ec2 normal. CV: regular rate LUNGS: no respiratory distress ABD: non-distended SKIN: no evidence of rashes MSK: Left upper extremity with tenderness palpation to the proximal humerus, left shoulder. Distal neurovascular status intact, overall good range of motion in the left upper extremity, no obvious bony deformity. No C/T/L-spine tenderness palpation. NEURO: moves all extremities equally Vital Signs: :25 BP 142 / 78; Pulse 80; Resp 17 S; Temp 98.4(O); Pulse Ox 97% on R/A; Weight 127.01 kg lg3 (R); Height 5 ft. 4 in. (R); Pain 05/03; 01:25 Body Mass Index 48.06 (127.01 kg, 162.56 cm) lg3 01:25 Pain Scale: Adult lg3 MDM: 01:24 Patient medically screened. ec2 01:31 Data reviewed: vital signs. ec2 02:18 ED course: Shoulder x-ray with no traumatic process identified. On reassessment patient ec2 is well-appearing in no acute distress, will discharge home with shoulder sprain. Return precautions given. . 07/13 01:30 Order name: Shoulder Left (2 View) XRAY ec2 Administered Medications: 01:43 Drug: Ketorolac IM 30 mg IM once Route: IM; Site: left deltoid; kl 02:32 Follow up: Response: No adverse reaction; Pain is increased kl 01:43 Drug: predniSONE PO 40 mg PO once Route: PO; kl 02:32 Follow up: Response: No adverse reaction; Pain is decreased kl Disposition Summary: 07/13/23 02:19 Discharge Ordered Notes: Location: Home ec2 Condition: Stable ec2 Diagnosis - Sprain of shoulder joint ec2 Discharge Instructions: - Discharge Summary Sheet ec2 - Shoulder Sprain ec2 Forms: - Work release form kl - Medication Reconciliation Form ec2 - Thank You Letter ec2 - Antibiotic Education ec2 - Prescription Opioid Use ec2 - Patient Portal Instructions ec2 - Leadership Thank You Letter ec2 Signatures: Dispatcher [employer] Gia Reyez RN RN Suzy Zimmerman RN RN [facility] Joseluis Ramirez MD MD ec2
--- NOTE | 2023-07-13 02:19 | ER ---
Nurse's Notes [facility] Name: Ruben Alamo Age: 47 yrs Sex: Male : 1975 Arrival Date: 07/13/2023 Time: : Bed 11 Private MD: Diagnosis: Sprain of shoulder joint Presentation: 07/13 01:25 Chief complaint: Patient states: fell when getting out of truck landing on left side. lg3 complaints of pain to left shoulder and arm. 8/10 pain. denies hitting head/LOC. Coronavirus screen: Client denies travel out of the [place] in the last 14 days. At this time, the client does not indicate any symptoms associated with coronavirus-19. Ebola Screen: No symptoms or risks identified at this time. Initial Sepsis Screen: Does the patient meet any 2 criteria? No. Patient's initial sepsis screen is negative. Does the patient have a suspected source of infection? No. Patient's initial sepsis screen is negative. Risk Assessment: Do you want to hurt yourself or someone else? Patient reports no desire to harm self or others. Onset of symptoms was July 13, 2023. 01:25 Method Of Arrival: Ambulatory lg3 01:25 Acuity: LIZBETH 3 lg3 Triage Assessment: 01:27 General: Appears in no apparent distress. uncomfortable, Behavior is calm, cooperative. lg3 Pain: Complains of pain in left shoulder, left arm. EENT: No deficits noted. No signs and/or symptoms were reported regarding the EENT system. Neuro: No deficits noted. Arnold Agitation-Sedation Scale (RASS): 0 - Alert and Calm Level of Consciousness is awake, alert, obeys commands, Oriented to person, place, time, situation. Cardiovascular: No deficits noted. Capillary refill < 3 seconds Clubbing of nail beds is absent JVD is absent Patient's skin is warm and dry. Respiratory: No deficits noted. Airway is patent Respiratory effort is even, unlabored, Respiratory pattern is regular, symmetrical. GI: No deficits noted. No signs and/or symptoms were reported involving the gastrointestinal system. : No deficits noted. No signs and/or symptoms were reported regarding the genitourinary system. Derm: No deficits noted. No signs and/or symptoms reported regarding the dermatologic system. Skin is intact, is healthy with good turgor, Skin is dry, Skin is normal, Skin temperature is warm. Musculoskeletal: Circulation, motion, and sensation intact. Range of motion: limited in left shoulder Reports pain in left arm. Historical: - Allergies: :27 Iodine; lg3 01:27 PENICILLINS; lg3 01:27 SHELLFISH; lg3 - Home Meds: : [place] Oral [Active]; lg3 - PMHx: :27 Chronic pain; headache; Hypertensive disorder; lg3 - PSHx: :27 facial reconstruction; Spinal surgery; lg3 - Immunization history:: Adult Immunizations up to date, Client reports receiving the 2nd dose of the Covid vaccine, Flu vaccine is up to date. - Social history:: Smoking status: Patient reports use of chewing tobacco. Patient denies any tobacco usage or history of. Patient/guardian denies using alcohol, street drugs. Screenin:33 [facility] ED Fall Risk Assessment (Adult) History of falling in the last 3 months, kl including since admission Yes- single mechanical fall (1 pt) Confusion or Disorientation No (0 pts) Intoxicated or Sedated No (0 pts) Impaired Gait No (0 pts) Mobility Assist Device Used No (0 pt) Altered Elimination No (0 pt) Score/Fall Risk Level 0 - 2 = Low Risk Oriented to surroundings, Maintained a safe environment. Abuse screen: Denies threats or abuse. Nutritional screening: No deficits noted. Tuberculosis screening: No symptoms or risk factors identified. Assessment: 02:33 Reassessment: Patient appears in no apparent distress at this time. Patient states kl feeling better. Patient states symptoms have improved. Vital Signs: 01:25 BP 142 / 78; Pulse 80; Resp 17 S; Temp 98.4(O); Pulse Ox 97% on R/A; Weight 127.01 kg lg3 (R); Height 5 ft. 4 in. (R); Pain 8/10; 01:25 Body Mass Index 48.06 (127.01 kg, 162.56 cm) lg3 01:25 Pain Scale: Adult lg3 ED Course: :22 Patient arrived in ED. gm2 01:24 Joseluis Ramirez MD is Attending Physician. ec2 01:27 Triage completed. lg3 01:27 Arm band placed on right wrist. lg3 01:43 Shoulder Left (2 View) XRAY In Process Unspecified. EDMS 02:33 No provider procedures requiring assistance completed. Patient did not have IV access kl during this emergency room visit. Administered Medications: 01:43 Drug: Ketorolac IM 30 mg IM once Route: IM; Site: left deltoid; kl 02:32 Follow up: Response: No adverse reaction; Pain is increased kl 01:43 Drug: predniSONE PO 40 mg PO once Route: PO; kl 02:32 Follow up: Response: No adverse reaction; Pain is decreased kl Outcome: 02:19 Discharge ordered by MD. allen 02:33 Discharged to home ambulatory, kl 02:33 Condition: stable 02:33 Discharge instructions given to patient, Instructed on discharge instructions, follow up and referral plans. Demonstrated understanding of instructions, follow-up care, 02:34 Patient left the ED. kl Signatures: Dispatcher [employer] Gia Reyez RN Suzy Peguero RN RN lg3 Joseluis Ramirez MD MD ec2 Flora Soriano 2
[2023-07-13 02:44] VITALS: BP 142/78; TEMP 98.4; O2SAT 97
--- NOTE | 2023-07-13 18:45 | RAD REPORT ---
EXAM DESCRIPTION: RAD - Shoulder Left 2 View - 07/13/2023 1:41 am XR Left Shoulder 2 Views CLINICAL HISTORY: Pain COMPARISON: Chest 1 View AP 11/12/2022 TECHNIQUE: Left Shoulder 2 Views FINDINGS: No fracture or dislocation. Anterior cervical spinal fusion hardware. No significant sclerotic/lytic bone lesion. Joint spaces unremarkable. Soft tissues unremarkable. IMPRESSION: Unremarkable Left Shoulder Radiographs. Electronically signed by: Avni Dior MD 07/13/2023 2:05 AM CDT Due to temporary technical issues with the PACS/Fluency reporting system, reports are being signed by the in house radiologists without review as a courtesy to insure prompt reporting. The interpreting radiologist is fully responsible for the content of the report.
== END 2023-07-13 02:34 | disposition home or self-care (01) ==
LOC: ER 01:20
DX: S43.402A Unspecified sprain of left shoulder joint, initial encounter (principal)
CPT/HCPCS: 96372; 99284; J7512

== ENCOUNTER 2023-07-14 00:48 | Emergency (ER) | payer BC, SELFPAY ==
--- OUTSIDE RECORDS SUMMARY | 2023-07-14 00:53 | XMS REPORT | Continuity of Care Document ---
:1975 Author Organization [facility] t Address [address] [place] [address] Care Team Providers Name Role Phone PCP, PATIENT DOES NOT HAVE A Primary Care Physician UnavailArjun Castillo MD Attending Clinician [phone] ALBIN ROSAS Attending Clinician Unavailable Albin [...] ia chronic chronic 03:47:18 l pain pain [place] Active Problem 11/07/2017 Family Diagnostic No known No known Disease Unive rs active active ity of problems problems [facility] Allergies, Adverse Reactions, Alerts [...] DA Active U 2020-0 [facility] [place] [facility] 00:[facility]: Region [facility] No Known DA Active U [facility]05 [place] 00:[facility]: Region 00 [facility] N.BennyA. Doni. Active Info Not Enrique elkin Available 10-25 00:00: 00 NO KNOWN Drug Active Univers ALLERGIE Class ity of S [facility] Social History Social Habit Start Date Stop Date Quantity Comments Source Gender identity [facility] Tobacco use and 2022-06-18 2022-06-18 Smokeless [facility] 00:00:00 00:00:00 tobacco non-user Hospital History of Social 2022-06-18 2022-06-[address] function 00:00:00 00:00:00 Hospital Exposure to 2022-05-20 2022-05-30 Not sure [facility]-CoV-2 (event) 00:00:00 20:57:00 [facility] Sex Assigned At [birth year] [facility] 00[facility]00 [facility]:00 [facility] Smoking Status Start Date Stop Date Source Tobacco smoking consumption unknown [facility] Never smoked tobacco [facility] Medications Ordered Filled Start Stop [...] to 7 days. lidocaine 2021-2021- No 4mL Q.[id number] Apply 4 mL [facility] H[facility] 06-[id number] (lidocaine) 00:00: 04:59 3D 3 [facility] 2 % 00 :00 times a l solution day for 3 days. Apply to cottonball and place it by toothache lidocaine 2021-0 2022- No 4mL Q.[id number] Apply 4 mL [facility] HCL 9-25 -[id number] (lidocaine) 00:00: 04:59 3D 3 (three) Hospita 2 % 00 :00 times a l solution day for 3 days. Apply to cottonball and place it by toothache lidocaine 2021-0 202- No 4mL Q.[id number] Apply 4 mL [facility] HCL 9-25 -[id number] (lidocaine) 00:00: 04:59 3D 3 (three) Hospita 2 % 00 :00 times a l solution day for 3 days. Apply to cottonball and place it by toothache lidocaine 2021-0 2021- No 4mL Q.[id number] Apply 4 mL [facility] HCL 9-25 -[id number] (lidocaine) 00:00: 04:59 3D 3 (three) Hospita 2 % 00 :00 times a l solution day for 3 days. Apply to cottonball and place it by toothache lidocaine 2021-0 2021- No 4mL Q.[id number] Apply 4 mL [facility] HCL 9-25 -[id number] (lidocaine) 00:00: 04:59 3D 3 (three) Hospita 2 % 00 :00 times a l solution day for 3 days. Apply to cottonball and place it by toothache lidocaine 2021-0 2022- No 4mL Q.[id number] Apply 4 mL [facility] HCL 9-25 -[id number] (lidocaine) 00:00: 04:59 3D 3 (three) Hospita 2 % 00 :00 times a l solution day for 3 days. Apply to cottonball and place it by toothache lidocaine 2021-0 2022- No 4mL Q.[id number] Apply 4 mL Method[facility] HCL 9-25 -[id number] (lidocaine) 00:00: 04:59 3D 3 (three) Hospita 2 % 00 :00 times a l solution day for 3 days. Apply to cottonball and place it by toothache lidocaine 2021- No 4mL Q.[id number] Apply 4 mL [facility] HCL 06-[id number] (lidocaine) 00:00: 04:59 3D 3 (three) Hospita 2 % 00 :00 times a l solution day for 3 days. Apply to cottonball and place it by toothache lidocaine 2021- No 4mL Q.[id number] Apply 4 mL [facility] HCL 06-[id number] (lidocaine) 00:00: 04:59 3D 3 (three) Hospita 2 % 00 :00 times a l solution day for 3 days. Apply to cottonball and place it by toothache lidocaine 2021- No 4mL Q.[id number] Apply 4 mL [facility] HCL 06-[id number] (lidocaine) 00:00: 04:59 3D 3 (three) Hospita 2 % 00 :00 times a l solution day for 3 days. Apply to cottonball and place it by toothache lidocaine 2021- No 4mL Q.[id number] Apply 4 mL [facility] HCL 06-18- [id number] topically st (lidocaine) 00:00: 04:59 3D 3 (three) Hospita 2 % 00 :00 times a l solution day for 3 days. Apply to cottonball and place it by toothache lidocaine 2021- No 4mL Q.[id number] Apply 4 mL [facility] HCL 06-[id number] (lidocaine) 00:00: 04:59 3D 3 (three) Hospita 2 % 00 :00 times a l solution day for 3 days. Apply to cottonball and place it by toothache butalbital- 2021- No 1{tbl} 1 tablet, Univers acetaminoph 05-31 Oral, ity of en-caff 02:30: 02:22 ONCE, 1 [place] (ESGIC) 00 :00 dose, On Medical 50-325-40 05/30/22 Bran ch mg tablet 1 at 2130, tablet CHRISTINA butalbital- Yes [id number] 1{tbl} Take 1 Univers acetaminoph 9-06 tablet [...] 30 days. LISINOPRIL 2022-0 Yes Take by [facility] ORAL 8-16 mouth. ity of 21:45: [address] Branch HYDROcodone 2022-0 Yes 1{tbl} Take 1 Un butch -acetaminop 8-16 tablet by ity of hen ([employer]) 21:45: mouth [place] 10-325 mg 20 every 6 Medical tablet (six) Branch hours as needed. LISINOPRIL 2022-0 Yes Take by [facility] ORAL 8-16 mouth. ity of 21:45: [place] 20 Medical Branch HYDROcodone 2022-0 Yes 1{tbl} [...] Sun Branch 04/23/22 at 1515, CHRISTINA Hydrocodone 2017- Yes [place] 1 tablet Memoria [...] [facility]ukes 00:00: Memoria 00 l (LUF/LI V/SA) [place] 2018-0 Yes [place] 1 tablet Enrique elkin 1-15 Irfan as needed l 00:00: [place] 2018-0 Yes [place] 1 tablet Memor ia 1-15 Irfan as needed l 00:00: Meloxicam 2018-0 Yes [place] 1 tablet Memoria 1-15 Irfan l 00:00: [place] 2018-0 Yes [place] 1 tablet Enrique elkin 1-15 Irfan as needed l 00:00: [place] 2018-0 Yes [place] 1 tablet Memor ia 1-15 Irfan as needed l 00:00: Meloxicam 2018-0 Yes [place] 1 tablet Memoria 1-15 Irfan l 00:00: [place] 2018-0 Yes [place] 1 tablet Enrique elkin 1-15 Irfan as needed l 00:00: [place] 2018-0 Yes [place] 1 tablet Memor ia 1-15 Irfan as needed l 00:00: Meloxicam 2018-0 Yes [place] 1 tablet Memoria 1-15 Irfan l 00:00: [place] 2018-0 Yes [place] 1 tablet Enrique elkin 1-15 Irfan as needed l 00:00: [place] 2018-0 Yes [place] 1 tablet Memor ia 1-15 Irfan as needed l 00:00: Meloxicam 2018-0 Yes [place] 1 tablet Memoria 1-15 Irfan l 00:00: [place] 2018-0 Yes [place] 1 tablet Enrique elkin 1-15 Irfan as needed l 00:00: [place] 2018-0 Yes [place] 1 tablet Memor ia 1-15 Irfan as needed l 00:00: Meloxicam 2018-0 Yes [place] 1 tablet Memoria 1-15 Irfan l 00:00: [place] 2018-0 Yes [place] 1 tablet Enrique elkin 1-15 Irfan as needed l 00:00: [place] 2018-0 Yes [place] 1 tablet Memor ia 1-15 Irfan as needed l 00:00: Meloxicam 2018-0 Yes [place] 1 tablet Memoria 1-15 Irfan l 00:00: [place] 2018-0 Yes [place] 1 tablet Enrique elkin 1-15 Irfan as needed l 00:00: [place] 2018-0 Yes [place] 1 tablet Memor ia 1-15 Irfan as needed l 00:00: Meloxicam 2018-0 Yes [place] 1 tablet Memoria 1-15 Irfan l 00:00: Meloxicam 2018-0 Yes [place] 1 tablet Memoria 1-15 Irfan l 00:00: [place] 2018-0 Yes [place] 1 tablet Memor ia 1-15 Irfan as needed l 00:00: [place] 2018-0 Yes [place] 1 tablet Enrique elkin 1-15 Irfan as needed l 00:00: Meloxicam 2018-0 Yes [place] 1 tablet Memoria 1-15 Irfan l 00:00: [place] 2018-0 Yes [place] 1 tablet Memor ia 1-15 Irfan as needed l 00:00: [place] 2018-0 Yes [place] 1 tablet Enrique elkin 1-15 Irfan as needed l 00:00: Meloxicam 2018-0 Yes [place] 1 tablet Memoria 1-15 Irfan l 00:00: [place] 2018-0 Yes [place] 1 tablet Memor ia 1-15 Irfan as needed l 00:00: [place] 2018-0 Yes [place] 1 tablet Enrique elkin 1-15 Irfan as needed l 00:00: Meloxicam 2018-0 Yes [place] 1 tablet Memoria 1-15 Irfan l 00:00: [place] 2018-0 Yes [place] 1 tablet Memor ia 1-15 Irfan as needed l 00:00: [place] 2018-0 Yes [place] 1 tablet Enrique elkin 1-15 Irfan as needed l 00:00: Meloxicam 2018-0 Yes [place] 1 tablet Memoria 1-15 Irfan l 00:00: [place] 2018-0 Yes [place] 1 tablet Memor ia 1-15 Irfan as needed l 00:00: [place] 2018-0 Yes [place] 1 tablet Enrique elkin 1-15 Irfan as needed l 00:00: Meloxicam 2018-0 Yes [place] 1 tablet Memoria 1-15 Irfan l 00:00: [place] 2018-0 Yes [place] 1 tablet Memor ia 1-15 Irfan as needed l 00:00: [place] 2018-0 Yes [place] 1 tablet Enrique elkin 1-15 Irfan as needed l 00:00: [place] 2018-0 Yes [place] 1 tablet Enrique elkin [...] 2022-05-31 01:59:00 128 mm[Hg] Univer sity of [facility] Diastolic blood 2022-05-31 01:59:00 81 mm[Hg] [facility] 2022-05-31 01:59:00 78 /min [facility] [place] [facility] Body temperature 2022-05-31 01:59:00 36.94 Amisha [facility] [place] [facility] Respiratory rate 2022-05-31 01:59:00 18 /min [facility] [place] [facility] Body height 2022-05-31 01:59:00 165.1 cm [facility] [place] [facility] Body weight 2022-05-31 01:59:00 127.007 kg [facility] [place] [facility] BMI 2022-05-31 01:59:00 46.59 kg/m2 [facility] [place] [facility] Oxygen saturation in 2022-05-31 01:59:00 95 /min University of Arterial blood by [place] [employer] shannan Pulse oximetry Branch Systolic blood 2022-05-10 02:39:00 148 mm[Hg] Univer sity of pressure [place] [facility] Diastolic blood 2022-05-10 02:39:00 84 mm[Hg] Unive rsity of pressure [place] [facility] Heart rate 2022-05-10 02:39:00 70 /min [facility] [place] [facility] Body temperature 2022-05-10 02:39:00 37.56 Amisha [facility] [place] [facility] Respiratory rate 2022-05-10 02:39:00 18 /min [facility] [place] [facility] Body height 2022-05-10 02:39:00 162.6 cm [facility] [place] [facility] Body weight 2022-05-10 02:39:00 127.007 kg [facility] [place] [facility] BMI 2022-05-10 02:39:00 48.06 kg/m2 [facility] [place] [facility] Oxygen saturation in 2022-05-10 02:39:00 95 /min University of Arterial blood by [place] [employer] shannan Pulse oximetry Branch Body weight 2022-04-23 20:11:00 133.131 kg [facility] [place] [facility] BMI 2022-04-23 20:11:00 50.38 kg/m2 [facility] [place] [facility] Systolic blood 2022-04-23 20:09:00 140 mm[Hg] Univer sity of pressure [place] [facility] Diastolic blood 2022-04-23 20:09:00 81 mm[Hg] Unive rsity of pressure [place] [facility] Heart rate 2022-04-23 20:09:00 66 /min Universi ty [facility] Body temperature 2022-04-23 20:09:00 36.72 Amisha [facility] Respiratory rate 2022-04-23 20:09:00 17 /min [facility] Body height 2022-04-23 20:09:00 162.6 cm [facility] Oxygen saturation in 2022-04-23 20:09:00 97 /min University of Arterial blood by [facility] Pulse oximetry Branch Systolic blood 2022-06-18 15:20:24 157 mm[Hg] [facility] Di[facility] blood 2022-06-18 15:20:24 74 mm[Hg] [facility] pressure Heart rate 2022-06-18 15:20:24 53 /min [facility] Body temperature 2022-06-18 15:20:24 36.78 Amisha [facility] Respiratory rate 2022-06-18 15:20:24 16 /min [facility] Oxygen saturation in 2022-06-18 15:20:24 97 /min [facility] Arterial blood by Pulse oximetry Body height 2022-06-18 12:48:00 162.6 cm [facility] Body weight 2022-06-18 12:48:00 127.007 kg [facility] BMI 2022-06-18 12:48:00 48.06 kg/m2 [facility] Systolic blood 2022-05-21 00:33:00 132 mm[Hg] [facility] pressure Diastolic blood 2022-05-21 00:33:00 64 mm[Hg] [facility] pressure Heart rate 2022-05-21 00:33:00 64 /min [facility] Oxygen saturation in 2022-05-21 00:33:00 98 /min [facility] Arterial blood by Pulse oximetry Body temperature 2022-05-20 23:53:12 36.17 Amisha [facility] Respiratory rate 2022-05-20 23:53:12 18 /min [facility] Body height 2022-05-20 23:52:00 162.6 cm [facility] Body weight 2022-05-20 23:52:00 127.007 kg [facility] BMI 2022-05-20 23:52:00 48.06 kg/m2 [facility] Weight 2017-10-25 15:00:00 [facility] Height 2017-10-25 15:00:00 [facility] Temperature Oral (F) 2017-10-25 15:00:00 97.8 F [facility] [place] Heart Rate 2017-10-25 15:00:00 [facility] [place] Diastolic (mm Hg) 2017-10-25 15:00:00 Mem [facility] [place] Systolic (mm Hg) 2017-10-25 15:00:00 Enrique [facility] [place] BMI (Body Mass 2017-10-21 12:00:00 48.7 [facility]) [facility] (LUF/BLANCA/SA) Body Temperature 2017-10-21 12:00:00 97.5 F [facility] (LUF/BLANCA/SA) Respiratory Rate 2017-10-21 12:00:00 20 /min [facility] (LUF/BLANCA/SA) O2% BldC Oximetry 2017-10-21 12:00:00 98 % [facility] (LUF/BLANCA/SA) BP Systolic 2017-10-21 12:00:00 132 mm[Hg] [facility] (LUF/BLANCA/SA) BP Diastolic 2017-10-21 12:00:00 78 mm[Hg] [facility] (LUF/BLANCA/SA) Height 2017-10-21 12:00:00 64 in [facility] (LUF/BLANCA/SA) Weight Measured 2017-10-21 12:00:00 282.19 lbs [facility] (LUF/BLANCA/SA) Weight 2017-10-08 15:45:00 [facility] Height 2017-10-08 15:45:00 [facility] Temperature Oral (F) 2017-10-08 15:45:[address] [facility] Tavo Heart Rate 2017-10-08 15:45:00 [facility] [place] Diastolic (mm Hg) 2017-10-08 15:45:00 Mem [facility] Systolic (mm Hg) 2017-10-08 15:45:00 Enrique rial [facility] Procedures Procedure Date / Time Performing Clinician Source Performed CT MAXILLOFACIAL WO 2022-06-18 14:48:32 Abdi, [facility] CONTRAST CONSENT/REFUSAL FOR 2022-05-31 01:55:15 Doctor Unassigned, No [facility] [place] [facility] TREATMENT Name Medical Branch CT CERVICAL SPINE WO 2022-05-21 01:24:51 Darc[facility]Kaycee [facility] CONTRAST 2022-05-21 01:15:40 Kaycee Butt [facility] POC GLUCOSE 2022-05-21 00:33:[facility] Kay[facility]e [facility] NOTICE OF PRIVACY 2022-05-10 02:37:04 Doctor Unassigned, No [facility] [place] PRACTICES Name Medical Branch CONSENT/REFUSAL FOR 2022-05-10 02:35:02 Doctor Unassigned, No [facility] [place] [facility] Name Medical Branch CONSENT/REFUSAL FOR 2022-04-23 20:00:28 Doctor Unassigned, No [facility] [place] DIAGNOSIS AND TREATMENT Name Medical Branch Plan of Care Planned Activity Planned Date Details Comments Source Future Scheduled 2023-07-06 Scre[facility] Test 06:35:42 malignant neoplasm of colon (procedure) [code = 667671289] Future Scheduled 2023-07-06 [facility] Test 06:35:42 malignant neoplasm of colon (procedure) [code = 901560315] Future Scheduled 2023-07-06 [facility] Test 06:35:42 malignant neoplasm of colon (procedure) [code = 406567440] Future Scheduled 2023-07-06 Hepatitis C screening [facility] Test 06:35:42 (procedure) [code = 478317704] Future Scheduled 2023-07-06 [facility] Test 06:35:42 malignant neoplasm of colon (procedure) [code = 110889728] Future Scheduled 2023-07-06 [facility] Test 06:35:42 malignant neoplasm of colon (procedure) [code = 211479407] Future Scheduled 2023-07-06 COVID-19 VACCINE (3 - [facility] 06:35:42 ) [code = COVID-19 VACCINE (3 - season)] Future Scheduled 2023-07-06 INFLUENZA VACCINE [facility] Test 06:35:42 (#1) [code = INFLUENZA VACCINE (#1)] Future Scheduled 2023-07-06 [facility] VACCINES > 60 YR [facility]:35[facility]42 (1 - 1-dose 60+ series) [code = RSV VACCINES > 60 YR (1 - 1-dose 60+ series)] Future Scheduled 2023-07-06 [facility] Test 06:35:42 malignant neoplasm of colon (procedure) [code = 106789884] Future Scheduled 2023-07-06 [facility] Test 06:35:42 malignant neoplasm of colon (procedure) [code = 072161540] Future Scheduled 2023-07-06 [facility] Test 06:35:42 malignant neoplasm of colon (procedure) [code = 099101900] Future Scheduled 2023-07-06 Hepatitis C screening [facility] Test 06:35:42 (procedure) [code = 224340968] Future Scheduled 2023-07-06 [facility] Test 06:35:42 malignant neoplasm of colon (procedure) [code = 381649074] Future Scheduled 2023-07-06 [facility] Test 06:35:42 malignant neoplasm of colon (procedure) [code = 359760181] Future Scheduled 2023-07-06 COVID-19 VACCINE (3 - [facility] Test 06:35:42 season) [code = COVID-19 VACCINE (3 - season)] Future Scheduled 2023-07-06 INFLUENZA VACCINE Method [facility] Hospital Test 06:35:42 (#1) [code = INFLUENZA VACCINE (#1)] Future Scheduled 2023-07-06 RSV VACCINES > 60 YR Met [facility] Test 06:35:42 (1 - 1-dose 60+ series) [code = RSV VACCINES > 60 YR (1 - 1-dose 60+ series)] Future Scheduled 2023-06-24 [facility] Test 02:49:40 malignant neoplasm of colon (procedure) [code = 184927763] Future Scheduled 2023-06-24 [facility] Test 02:49:40 malignant neoplasm of colon (procedure) [code = 384458099] Future Scheduled 2023-06-24 [facility] Test 02:49:40 malignant neoplasm of colon (procedure) [code = 070385900] Future Scheduled 2023-06-24 [facility] Test 02:49:40 (procedure) [code = 931461239] Future Scheduled 2023-06-24 COVID-19 VACCINE (3 - [facility] Test 02:49:40 Pfizer series) [code = COVID-19 VACCINE (3 - Pfizer series)] Future Scheduled 2023-06-24 [facility] Test 02:49:40 malignant neoplasm of colon (procedure) [code = 090047966] Future Scheduled 2023-06-24 [facility] Test 02:49:40 malignant neoplasm of colon (procedure) [code = 563114464] Future Scheduled 2023-06-24 INFLUENZA VACCINE [facility] Test 02:49:40 (#1) [code = INFLUENZA VACCINE (#1)] Future Scheduled 2023-06-24 [facility] Test 02:49:40 malignant neoplasm of colon (procedure) [code = 388948901] Future Scheduled 2023-06-24 [facility] Test 02:49:40 malignant neoplasm of colon (procedure) [code = 427749029] Future Scheduled 2023-06-24 [facility] Test 02:49:40 malignant neoplasm of colon (procedure) [code = 099433775] Future Scheduled 2023-06-24 [facility] Test 02:49:40 (procedure) [code = 926207542] Future Scheduled 2023-06-24 COVID-19 VACCINE (3 - [facility] Test 02:49:40 Pfizer series) [code = COVID-19 VACCINE (3 - Pfizer series)] Future Scheduled 2023-06-24 [facility] Test 02:49:40 malignant neoplasm of colon (procedure) [code = 470104545] Future Scheduled 2023-06-24 [facility] Test 02:49:40 malignant neoplasm of colon (procedure) [code = 083737382] Future Scheduled 2023-06-24 INFLUENZA VACCINE [facility] Test 02:49:40 (#1) [code = INFLUENZA VACCINE (#1)] Future Scheduled 2023-05-28 [facility] Test 18:05:11 malignant neoplasm of colon (procedure) [code = 417165731] Future Scheduled 2023-05-28 [facility] Test 18:05:11 malignant neoplasm of colon (procedure) [code = 266148777] Future Scheduled 2023-05-28 [facility] Test 18:05:11 malignant neoplasm of colon (procedure) [code = 963309967] Future Scheduled 2023-05-28 [facility] Test 18:05:11 (procedure) [code = 628838636] Future Scheduled 2023-05-28 COVID-19 VACCINE (3 - [facility] Test 18:05:11 Pfizer series) [code = COVID-19 VACCINE (3 - Pfizer series)] Future Scheduled 2023-05-28 [facility] Test 18:05:11 malignant neoplasm of colon (procedure) [code = 518705747] Future Scheduled 2023-05-28 [facility] Test 18:05:11 malignant neoplasm of colon (procedure) [code = 495685371] Future Scheduled 2023-05-28 INFLUENZA VACCINE [facility] Test 18:05:11 (#1) [code = INFLUENZA VACCINE (#1)] Future Scheduled 2023-04-27 [facility] Test 11:13:08 malignant neoplasm of colon (procedure) [code = 069660272] Future Scheduled 2023-04-27 [facility] Test 11:13:08 malignant neoplasm of colon (procedure) [code = 435455940] Future Scheduled 2023-04-27 [facility] Test 11:13:08 malignant neoplasm of colon (procedure) [code = 336659504] Future Scheduled 2023-04-27 [facility] Test 11:13:08 (procedure) [code = 913120190] Future Scheduled 2023-04-27 COVID-19 VACCINE (3 - [facility] 11:13:08 Pfizer series) [code = COVID-19 VACCINE (3 - Pfizer series)] Future Scheduled 2023-04-27 [facility] Test 11:13:08 malignant neoplasm of colon (procedure) [code = 277481294] Future Scheduled 2023-04-27 [facility] Test 11:13:08 malignant neoplasm of colon (procedure) [code = 920405430] Future Scheduled 2023-04-27 INFLUENZA VACCINE [facility] Test 11:13:08 [code = INFLUENZA VACCINE] Future Scheduled 2023-04-27 [facility] Test 11:13:08 malignant neoplasm of colon (procedure) [code = 959729008] Future Scheduled 2023-04-27 [facility] Test 11:13:08 malignant neoplasm of colon (procedure) [code = 249173154] Future Scheduled 2023-04-27 [facility] Test 11:13:08 malignant neoplasm of colon (procedure) [code = 299379202] Future Scheduled 2023-04-27 [facility] Test 11:13:08 (procedure) [code = 784932220] Future Scheduled 2023-04-27 COVID-19 VACCINE (3 - [facility] Test 11:13:08 Pfizer series) [code = COVID-19 VACCINE (3 - Pfizer series)] Future Scheduled 2023-04-27 [facility] Test 11:13:08 malignant neoplasm of colon (procedure) [code = 148211262] Future Scheduled 2023-04-27 [facility] Test 11:13:08 malignant neoplasm of colon (procedure) [code = 104492147] Future Scheduled 2023-04-27 INFLUENZA VACCINE [facility] Test 11:13:08 [code = INFLUENZA VACCINE] Future Scheduled 2023-01-09 Hepatitis C screening [facility] Test 02:12:34 (procedure) [code = 782272142] Future Scheduled 2023-01-09 COVID-19 VACCINE (3 - [facility] Test 02:12:34 Booster for Pfizer series) [code = COVID-19 VACCINE (3 - Booster for Pfizer series)] Future Scheduled 2023-01-09 COLONOSCOPY SCREENING [facility] Test 02:12:34 [code = COLONOSCOPY SCREENING] Future Scheduled 2023-01-09 INFLUENZA VACCINE [facility] Test 02:12:34 [code = INFLUENZA VACCINE] Future Scheduled 2023-01-09 Hepatitis C screening [facility] Test 02:12:34 (procedure) [code = 062955940] Future Scheduled 2023-01-09 COVID-19 VACCINE (3 - [facility] Test 02:12:34 Booster for Pfizer series) [code = COVID-19 VACCINE (3 - Booster for Pfizer series)] Future Scheduled 2023-01-09 [facility]ING [facility] 02:12:34 [code = COLONOSCOPY SCREENING] Future Scheduled 2023-01-09 INFLUENZA VACCINE [facility] Test 02:12:34 [code = INFLUENZA VACCINE] Future Scheduled 2022-09-08 [facility] screening [facility] Test 15:04:49 (procedure) [code = 244605675] Future Scheduled 2022-09-08 COVID-19 VACCINE (3 - [facility] Test 15:04:49 Booster for Pfizer series) [code = COVID-19 VACCINE (3 - Booster for Pfizer series)] Future Scheduled 2022-09-08 INFLUENZA VACCINE [facility] Test 15:04:49 [code = INFLUENZA VACCINE] Future Scheduled 2022-09-08 [facility]:04:49 (procedure) [code = 594247958] Future Scheduled 2022-09-08 [facility] Booster for Pfizer series) [code = COVID-19 VACCINE (3 - Booster for Pfizer series)] Future Scheduled 2022-09-08 INFLUENZA VACCINE [facility] 15:04:49 [code = INFLUENZA VACCINE] Future Scheduled 2022-09-08 [facility] (procedure) [code = 061428017] Future Scheduled 2022-09-08 COVID-19 [facility]ACCINE ([facility]04:49 Booster for Pfizer series) [code = COVID-19 VACCINE (3 - Booster for Pfizer series)] Future Scheduled 2022-09-08 [facility]ENZA VACCINE [facility] 15:04:49 [code = INFLUENZA VACCINE] Future Scheduled 2022-09-08 [facility] 15:04:49 (procedure) [code = 046220711] Future Scheduled 2022-09-08 COVID-19 VACCINE (3 - [facility] 15:04:49 Booster for Pfizer series) [code = COVID-19 VACCINE (3 - Booster for Pfizer series)] Future Scheduled 2022-09-08 INFLUENZA VACCINE [facility] 15:04:49 [code = INFLUENZA VACCINE] Future Scheduled 2022-06-18 HEPATITIS B VACCINES Met [facility] Test 09:25:33 (1 of 3 - 3-dose series) [code = HEPATITIS B VACCINES (1 of 3 - 3-dose series)] Future Scheduled 2022-06-18 Hepatitis C screening [facility] Test 09:25:33 (procedure) [code = 802896001] Future Scheduled 2022-06-18 COVID-19 VACCINE (3 - [facility] Test 09:25:33 Booster for Pfizer series) [code = COVID-19 VACCINE (3 - Booster for Pfizer series)] Future Scheduled 2022-06-18 INFLUENZA VACCINE Method [facility] Test 09:25:33 [code = INFLUENZA VACCINE] Future Scheduled 2022-06-18 HEPATITIS B VACCINES Met [facility] Test 09:25:33 (1 of 3 - 3-dose series) [code = HEPATITIS B VACCINES (1 of 3 - 3-dose series)] Future Scheduled 2022-06-18 Hepatitis C screening [facility] Test 09:25:33 (procedure) [code = 059867737] Future Scheduled 2022-06-18 COVID-19 VACCINE (3 - [facility] Test 09:25:33 Booster for Pfizer series) [code = COVID-19 VACCINE (3 - Booster for Pfizer series)] Future Scheduled 2022-06-18 INFLUENZA VACCINE Method [facility] Test 09:25:33 [code = INFLUENZA VACCINE] Future Scheduled 2022-06-18 HEPATITIS B VACCINES Met [facility] Test 09:25:33 (1 of 3 - 3-dose series) [code = HEPATITIS B VACCINES (1 of 3 - 3-dose series)] Future Scheduled 2022-06-18 Hepatitis C screening [facility] Test 09:25:33 (procedure) [code = 109768128] Future Scheduled 2022-06-18 COVID-19 VACCINE (3 - [facility] Test 09:25:33 Booster for Pfizer series) [code = COVID-19 VACCINE (3 - Booster for Pfizer series)] Future Scheduled 2022-06-18 INFLUENZA VACCINE Method [facility] Test 09:25:33 [code = INFLUENZA VACCINE] Future Scheduled 2022-06-09 HEPATITIS B VACCINES Met [facility] Test 18:36:38 (1 of 3 - 3-dose series) [code = HEPATITIS B VACCINES (1 of 3 - 3-dose series)] Future Scheduled 2022-06-09 Hepatitis C screening [facility] Test 18:36:38 (procedure) [code = 973151269] Future Scheduled 2022-06-09 COVID-19 VACCINE (3 - [facility] Test 18:36:38 Booster for Pfizer series) [code = COVID-19 VACCINE (3 - Booster for Pfizer series)] Future Scheduled 2022-06-09 INFLUENZA VACCINE Method [facility] Test 18:36:38 [code = INFLUENZA VACCINE] Future Scheduled 2022-05-25 HEPATITIS B VACCINES Met [facility] Test 07:52:22 (1 of 3 - 3-dose series) [code = HEPATITIS B VACCINES (1 of 3 - 3-dose series)] Future Scheduled 2022-05-25 Hepatitis C screening [facility] Test 07:52:22 (procedure) [code = 970174054] Future Scheduled 2022-05-25 COVID-19 VACCINE (3 - [facility] Test 07:52:22 Booster for Pfizer series) [code = COVID-19 VACCINE (3 - Booster for Pfizer series)] Future Scheduled 2022-05-25 INFLUENZA VACCINE Method [facility] Test 07:52:22 [code = INFLUENZA VACCINE] Future Scheduled 2022-05-25 HEPATITIS B VACCINES Met [facility] Test 07:52:22 (1 of 3 - 3-dose series) [code = HEPATITIS B VACCINES (1 of 3 - 3-dose series)] Future Scheduled 2022-05-25 Hepatitis C screening [facility] Test 07:52:22 (procedure) [code = 069291709] Future Scheduled 2022-05-25 COVID-19 VACCINE (3 - [facility] Test 07:52:22 Booster for Pfizer series) [code = COVID-19 VACCINE (3 - Booster for Pfizer series)] Future Scheduled 2022-05-25 INFLUENZA VACCINE Method [facility] Test 07:52:22 [code = INFLUENZA VACCINE] Encounters Start End Encounter Admission Attending Care Care Encounter Source Date/Time Date/Time Type Type Clinicians Facility Department ID 2023-07-14 Outpatient [id number] 9EFC-6 Memoria 00:51:20 59K2-3652 E4-4150-8E1 9N0-9617- 8 l -3N6G-338 E-599L9K889 P2F-320N2J Tavo [id number] [id number] 8557-10-20 Outpatient [id number]- 5BJ91P4Y-E0 8FC7 7D6D-E Memoria 01:23:31 Z1JY-2Y6H CA-1O0Q-9U7 7CA-4E7E- 8 l -4V4W-43L B-02S734017 Z9L-93X060 Tavo [id number] 71F 67851Z 2023-07-02 Outpatient 4QRMP7U7- 2NMFJ0G1-34 9DBE E8E3-0 Memoria 08:48:04 061C-482C 1C-482C-8C0 61C-482C- 8 l -3H1F-478 F-547XGQ657 F0X-347LVB [place] AEN800H6K C8D 617C8D 2023-06-24 Outpatient 77X5IYJK- 65I5LLNG-53 51C1 AAAB-9 Memoria 02:49:59 9981-479A 81-479A-962 981-479A- 9 l -9621-347 1-7189T16ET 621-3472C3 Tavo 4J24HCYDO EAC 9EBEAC 2023-06-03 Outpatient [id number]- [id number] 1108 20D3-5 Memoria 21:49:39 5824-4CD0 24-4SA5-DV7 824-4CD0- B l -MI28-1MV 5-6UV3KV524 M91-3JE6PW Tavo 0CV31290F 99E 40841R 2023-05-13 Outpatient 7TV3TL19- 7QB6WY51-55 9FB8 AE55-2 Memoria 00:04:30 12H8-3K80 E3-0N02-368 1G9-0B22- 8 l -818B-D48 B-D51F72240 18B-D48E11 Tavo G80196Y01 B77 601B77 2023-04-28 Outpatient YO974K51- OG527H64-7F BF11 8E44-4 Memoria 01:56:12 4M72-11U5 29-44J1-46A A07-51L7- 8 l -48O0-598 6-1297167GO 0T1-399758 Tavo 4787MR83B 55D 4BD55D 2023-02-13 Outpatient 14U4I532- 94Z6Z138-U8 74F9 E380-D Memoria 07:15:33 I356-7WI0 14-2XM5-NY9 414-4AA9- A l -CX1T-6GE A-9BXDP2N06 S8Q-2YFQV1 Tavo DV1I77F3R F4B A56F4B 2023-01-21 Outpatient [id number]- 17L234B9-7X 16F3 10F0-0 Memoria 18:12:35 9OE4-86S6 C8-77T7-01N EC8-41B6- 8 l -84FA-CDD A-NPG802FFJ 4FA-ITU413 Tavo 912KQI352 063 NXV615 2022-12-02 Outpatient 18J458Q4- 28G826H9-30 04F8 97C6-9 Memoria 21:50:02 977E-4F82 7E-1R43-792 77E-4F82- 8 l -8693-8E8 3-0E7Z33615 693-8E8C26 [place] H772437Q8 6F6 1306F6 2022-11-12 Outpatient T4250FH6- W3071ZO1-WG F702 5ED6-A Memoria 01:29:42 ADA0-43F6 A0-17W4-F32 DA0-43F6- A l -A896-56G 6-47S6T91DL 116-87F8D9 Tavo 8K52NMP4C C1D 5BBC1D 2022-10-16 Outpatient 7Q022YVM- 3O939RSD-5H 7A87 7EEE-1 Memoria 06:48:40 9PQ9-4014 B4-4798-8A7 AB4-4798- 8 l -9P7T-94X F-05V9FJ119 E0S-40A7KC Tavo 9VM142N13 D64 698D64 2022-09-25 [facility] 8NR7486K- 0AR8354T-50 3BD2 723F-9 Memoria 18:40:25 89N7-3B53 D1-2P04-35V 0G8-4V16- 8 l -89BD-1A5 D-1S4WNDG48 9BD-1A5DCD Tavo KHKH802J1 6A3 E256A3 2022-07-11 Outpatient [id number]- 36O1E95K-88 94C6 F00D-5 Memoria 20:33:16 22Y1-99YY F4-47BE-8F8 3B6-11LY- 8 l -7L9M-87M F-69BHTP380 P0C-96WZPP Tavo CBN167GWJ FAD 309FAD 2022-07-05 Outpatient [id number]- 3742O4W8-62 3842 B7D1-4 Memoria 21:55:55 28Q9-73U2 E6-48E6-I07 1N7-28C0- A l -N18B-2A2 A-0O458IQA4 53A-9B642W Tavo 19FGY2D4E F6F BA1F6F 2022-06-20 Outpatient WBSHI6JK- QATCT9ZP-A8 FEAA B0FE-B [facility] 20:55:03 O02Y-8BJN 9E-4FBC-9E6 39E-4FBC- 9 l -4E29-G12 0-X48AJT488 M54-W88TTN Tavo WHY7078X1 7B9 9867B9 2022-06-18 Outpatient 5E2474NJ- 3F7577WR-6J 4A16 41FC-3 Memoria 07:44:31 3X80-5RTK 17-4EED-9D8 W25-2MTE- 9 l -4D65-C7H 1-Q1JF956E0 B03-H3GA77 Tavo W658J0I46 A09 2A0A09 2022-06-14 Outpatient [id number]- 0N1487W3-U4 4F66 73A9-D Memoria 22:44:21 S47E-0Q12 0A-5C26-543 90A-4A19- 9 l -9064-22B 4-71N968K3N 064-49J343 Tavo 808Z8F721 120 A2K773 2022-06-08 Outpatient Z2490CO1- B6390HE7-E8 F051 4BD7-F Memoria 21:22:44 F11J-1SU1 4B-1DH2-317 44B-4BC4- 8 l -819B-E8C B-J1M08300J 19B-M3S090 Tavo 68485RW62 C63 53AC63 2022-06-03 Outpatient HODI54Z5- FNOY48X6-66 ABCB 93A3-4 Memoria 01:33:52 4565-43DE 65-43DE-92E 565-43DE- 9 l -23H3-761 7-333HW28ZW 7B4-508MY5 Tavo NB35UA886 217 9PK666 2022-05-30 Outpatient 204ZP546- 925HG169-9T 114E F493-4 Memoria 20:55:52 8T32-508S 39-438E-9B8 U85-861P- 9 l -4P23-7RR 0-8KIX5U8OH B53-6CIV2G [place] S7W7IIT32 F41 4BEF41 2022-05-20 Outpatient 2V91Z93M- 2O07C54E-9I 5C46 A21D-1 Memoria 18:55:15 1FAA-4CF3 AA-8FM1-28T FAA-4CF3- 8 l -80ED-A77 D-Y85X62631 0ED-A77A25 Tavo [id number] 664 008051 0919-09-27 Outpatient [id number]- 4I101315-76 5C72 5329-4 Memoria 14:21:52 06D9-7BAF F0-4CEA-948 5H6-7APT- 9 l -9486-B77 6-P59OTV1W4 486-B77BBD Tavo HEX1C09A8 4C4 1C14C4 2021-06-20 Outpatient 732LCZ24- 244ELU22-60 596A BE16-8 Memoria 14:21:45 8434-49AE 34-49AE-95B 434-49AE- 9 l -95BD-57D D-03ON16Q0D 5BD-57DA06 Tavo K21Q6Y926 032 Y4Z705 2021-05-30 Outpatient [id number]- IO646422-OM CE68 9471-D Memoria 15:44:20 DAF5-4596 F5-4596-BFE AF5-4596- B l -BFE1-51A 1-63AEH80WN FE1-51ACA1 Tavo GI93MR6KX 1BA 9CA1BA 2020-01-20 Inpatient [facility] [id number] [facility] 15:25:[address] [facility] 2019-12-16 Inpatient [facility] [id number] [facility] 17:49:[address] [facility] 2019-12-12 Inpatient [facility] [id number] [facility] 08:32:[address] [facility] 2019-11-27 Inpatient [facility] [id number] [facility] 07:33:[address] [facility] 2022-06-18 2022-06-18 Emergency Rodolfo, 1.2.840.1 [id number] 2100 [id number] Methodi 07:52:00 10:32:[address] [facility] 3.430.2.7 [facility] .3.883606 l .8 2022-05-30 2022-05-[address] [facility] [place] ERT [id number] Univers 21:02:00 21:53:00 ALBIN ibrahim of [facility] 2022-05-30 2022-05-30 Emergency [facility] 1.2.920.783 0842 2067 Univers 21:02:00 21:53:00 Albin RUSSO 350.1.13.[address] [facility] 4.2.7.2.686 [facility] [id number] [place] [address] [place] 2022-05-20 2022-05-20 Emergency Bárbara 1.2.840.1 [id number] Methodi 19:29:00 21:04:[address] 3.430.2.7 Hospit a .3.336905 l .8 2022-05-20 2022-05-20 Travel 1.2.840.1 1.2.505.600 5851 761783 Methodi 00:00:00 00:00:[address] 3.430.2.7 0.2.7.3.698 Ho bismarkta .3.728455 084.8 l .8 2022-05-09 2022-05-09 Emergency X [facility] ERT [id number] Univers 21:45:00 21:46:00 CHER ibrhaim [facility] 2022-05-09 2022-05-09 Emergency [facility] 1.2.840.114 95 [id number] Univers 21:45:00 21:46:00 Cher [facility] 4.2.7.2.686 [facility] [id number] [address] 2022-04-23 2022-04-23 Emergency X [facility] ERT [id number] Univers 15:11:00 15:52:00 BO fu [facility] 2022-04-23 2022-04-23 Emergency [facility] 1.2.268.582 7899 2241 Univers 15:11:00 15:52:00 Bo RUSSO [facility]13.10 [facility] 4.2.7.2.686 [facility] [id number] [address] 2021-09-14 2021-09-14 Outpatient [place] [address] [place] 02:13:00 02:13[place] [address] [facility] 2021-09-08 2021-09-08 Outpatient [place]ON[place] [address] [place] 02:19:00 02:19:00 [place] [address] [facility] 2017-11-01 2017-11-01 Outpatient Family Family [id number] eClinic 10:47:00 10:47:00 [facility] 2017-10-25 2017-10-25 Outpatient Family Family [id number] eClinic 09:00:00 09:00:00 [facility] 2017-10-21 2017-10-21 PAIN IN [place], [facility] [id number] [facility] 11:51:00 14:48:00 [facility], [address], (LUF/[place] [address] 2017-10-21 2017-10-21 PAIN IN NIKKI, [facility] [id number] 11:51:00 14:48:00 [facility]ACIC [facility] N 2017-10-08 2017-10-08 Outpatient Family Family [id number] eClinic 09:45:00 09:45:00 [facility] Clinic Results Test Description Test Time Test Comments Results Result Comments Source POC glucose 2022-05-21 00:34:00 Test Item Value Reference Range Interpretation Comme nts POC glucose (test code = 62451-9) 217 mg/dL 65-100 H Stretcher Leveler Operator Name: Zach Avery ID: [id number] Lab Interpretation (test code = Abnormal 58216-9) [facility]2022-08-28 00:34:00 Test Item Value Reference Range Interpretation Comments POC glucose (test code = 217 mg/dL 65-100 H Ope rator Name: Zach 44280-9) BinosDevice ID: [id number] Lab Interpretation (test Abnormal code = 29377-5) [facility]2022-08-28 00:34:00 Test Item Value Reference Range Interpretation Comments POC glucose (test code = 217 mg/dL 65-100 H Ope rator Name: Zach 97607-4) BinosDevice ID: [id number] Lab Interpretation (test Abnormal code = 55284-9) [facility] [id number] 00:34:00 Test Item Value Reference Range Interpretation Comments POC glucose (test code = 217 mg/dL 65-100 H Ope rator Name: Zach 45053-9) BinosDevice ID: [id number] Lab Interpretation (test Abnormal code = 36309-9) [facility]2022-08-28 00:34:00 Test Item Value Reference Range Interpretation Comments POC glucose (test code = 217 mg/dL 65-100 H Ope rator Name: Zach 51794-6) BinosDevice ID: [id number] Lab Interpretation (test Abnormal code = 16410-8) [facility] [id number] 00:34:00 Test Item Value Reference Range Interpretation Comments POC glucose (test code = 217 mg/dL 65-100 H Ope rator Name: Zach Johnston) BinosDevice ID: [id number] Lab Interpretation (test Abnormal code = 45435-6) [facility]2022-08-28 00:34:00 Test Item Value Reference Range Interpretation Comments POC glucose (test code = 217 mg/dL 65-100 H Ope rator Name: Zach Lieberman7) BinosDevice ID: [id number] Lab Interpretation (test Abnormal code = 35290-8) [facility]2022-08-28 00:34:00 Test Item Value Reference Range Interpretation Comments POC glucose (test code = 217 mg/dL 65-100 H Ope rator Name: Zach Lieberman7) BinosDevice ID: [id number] Lab Interpretation (test Abnormal code = 07075-4) [facility]2022-08-28 00:34:00 Test Item Value Reference Range Interpretation Comments POC glucose (test code = 217 mg/dL 65-100 H Ope rator Name: Zach Johnston) BinosDevice ID: [id number] Lab Interpretation (test Abnormal code = 98759-5) [facility] [id number] 00:34:00 Test Item Value Reference Range Interpretation Comments POC glucose (test code = 217 mg/dL 65-100 H Ope rator Name: Zach Johnston) BinosDevice ID: [id number] Lab Interpretation (test Abnormal code = 29482-4) [facility]2022-08-28 00:34:00 Test Item Value Reference Range Interpretation Comments POC glucose (test code = 217 mg/dL 65-100 H Ope rator Name: Zach Lieberman7) BinosDevice ID: [id number] Lab Interpretation (test Abnormal code = 97825-4) [facility]2022-08-28 00:34:00 Test Item Value Reference Range Interpretation Comments POC glucose (test code = 217 mg/dL 65-100 H Ope rator Name: Zach Duggan53-7) BinosDevice ID: [id number] Lab Interpretation (test Abnormal code = 38255-1) [facility] [id number] 00:34:00 Test Item Value Reference Range Interpretation Comments POC glucose (test code = 217 mg/dL 65-100 H Ope rator Name: Zach Johnston) BinosDevice ID: [id number] Lab Interpretation (test Abnormal code = 04427-6) [facility] [id number] 00:34:00 Test Item Value Reference Range Interpretation Comments POC glucose (test code = 217 mg/dL 65-100 H Ope rator Name: Zach Johnston) BinosDevice ID: [id number] Lab Interpretation (test Abnormal code = 85339-5) [facility] HEAD/BRAIN W/O [id number] 18:19:00 Patient Name: VIMAL BARROSO Unit No: [id number] EXAMS: CPT CODE: [id number] CT HEAD/BRAIN W/O CONT 76145 CLINICAL INFORMATION: Moderate frontal headaches. Coughing. Dictation [...] 45.04 DLP: 757.79 Trnscrpt: 12/16/2019 (1818) Barbara [facility] [place] NAME: VIMAL BARROSO [address] [place] [address] PHYS: [place] [address] : 1975 AGE:44 SEX: M LOC: EMILY PHONE #: [phone] EXAM DATE: 12/16/2019 STATUS: PRE ER FAX #: [phone] RAD #: D/C DT PAGE 1 Signed Report Patient Name: VIMAL BARROSO Unit No: [id number] EXAMS: CPT CODE: [id number] CT HEAD/BRAIN W/O CONT 48026 (Continued) Orig Print D/T: S: 12/16/2019(1821) [facility] [place] NAME: VIMAL BARROSO [address] [place] [address] PHYS: Germania Isaacs [place] [address] : 1975 AGE: 44 SEX: M LOC: EMILY PHONE #: [phone] EXAM DATE: 12/16/2019 STATUS: PRE ER FAX #: [phone] RAD #: D/C DT PAGE 2 Signed Report- XR CHEST 2 [id number] 09:11:00 FAX: Germania Engel PREPLEATER [phone] [place]: St: REG Patient Name: VIMAL BARROSO Unit No: [id number] EXAMS: CPT CODE: [id number] XR CHEST 2 V 15931 - XR CHEST 2 V LOCATION: T18 INDICATION:Cough The lungs are well expanded and free of infiltrates. The costophrenic recesses are sharp without effusion. The heart, mediastinum and bony structures are within normal limits. Cervical spine fusion plate noted. IMPRESSION: No activedisease. at 0911 Reported and signed by: Zach Rubi D.O. CC: Germania Engel PREPLEATER Dictated Date/Time: 12/12/2019 (910)Technologist: Shannan Schmitz Transcribed Date/Time: 12/12/2019 (910) By: Joanna Orig Print D/T: S: 12/12/2019 (09) LORETA Lopez NAME: VIMAL BARROSO [address] [place] [address] Bl PHYS: Germania Isaacs PREPLEATER [place], [place] [address] : 1975 AGE: 44 SEX: M LOC: B.ERS PHONE #: [phone] EXAM DATE: 12/12/2019 STATUS: REG ER FAX #: [phone] RAD NO: DC Dt: PAGE 1 Signed ReportSPINE LUMBAR PYZK6278-10-60 13:37:[address] [address]OMGDFSNZXR IMAGING REPORTPatient Name: Lili BARROSO of Service: [id number]: 41 Sex: M Order #: [id number] [facility] 1975 X-Ray Number: [id number] Record Number: [id number] Hospital Number: [id number] Physician: Agatha CROW Physician: RUBY TREVIÑO LUMBAR [...]
--- NOTE | 2023-07-14 01:04 | EDPHYS ---
Physician Documentation [facility] Name: Ruben Alamo Age: 47 yrs Sex: Male : 1975 Arrival Date: 07/14/2023 Time: 00:48 Bed 6 Private MD: [facility] Physician Joseluis Ramirez HPI: 07/14 01:04 This 47 yrs old Black Male presents to ER via Ambulatory with complaints of Shoulder ec2 Pain. 01:04 The patient has been recently seen by a physician: Dr. Ramirez. Patient arrives today ec2 due to concern for persistent left shoulder pain. Patient was seen by me last night, had a fall had negative radiographs. Patient complaining of pain. Patient states he has not taken any medications at home. Denies any new complaints. States he has a muscle knot is causing him discomfort.. Historical: - Allergies: 01:02 Iodine; jb4 01:02 PENICILLINS; jb4 01:02 SHELLFISH; jb4 - Home Meds: 01:02 [place] Oral [Active]; jb4 - PMHx: 01:02 Chronic pain; headache; Hypertensive disorder; jb4 - PSHx: 01:02 facial reconstruction; Spinal surgery; jb4 - Immunization history:: Adult Immunizations not up to date. - Social history:: Smoking status: Patient denies any tobacco usage or history of. ROS: 01:04 Constitutional: shoulder pain ec2 Exam: 01:04 Constitutional: GEN: NAD Head: atraumatic Eyes: EOMI Ears: External ears are ec2 normal. CV: regular rate LUNGS: no respiratory distress ABD: non-distended SKIN: no evidence of rashes MSK: no evidence of trauma , Left shoulder with good range of motion, tenderness palpation to the posterior shoulder, no deformities, no ecchymosis, no crepitus, no discoloration. NEURO: moves all extremities equally Vital Signs: 01:00 BP 146 / 76; Pulse 70; Resp 16; Temp 98.1(O); Pulse Ox 99% on R/A; Weight 131.54 kg jb4 (R); Height 5 ft. 4 in. (R); 01:00 Body Mass Index 49.78 (131.54 kg, 162.56 cm) jb4 MDM: 00:56 Patient medically screened. ec2 01:04 Data reviewed: vital signs. ED course: Patient arrives today due to concern for ec2 persistent left shoulder pain. Examination markable reassuring musculoskeletal examination with no evidence of bony deformities or significant trauma. External record review performed myself shows negative radiographs. Will discharge home, give the patient Toradol as well as Robaxin as well as a prescription for Robaxin. I suspect muscular pain causing his symptoms. Patient otherwise comfortable appearing in no acute distress with reassuring vital signs. I do not feel he requires additional imaging such as CT scan or MRI emergently.. Administered Medications: 01:12 Drug: Methocarbamol PO 500 mg PO once Route: PO; nw1 01:12 Drug: Ketorolac IM 60 mg IM once Route: IM; Site: left deltoid; nw1 Disposition Summary: 07/14/23 01:03 Discharge Ordered Notes: Location: Home ec2 Condition: Stable ec2 Diagnosis - Sprain of shoulder joint ec2 Discharge Instructions: - Discharge Summary Sheet ec2 - Shoulder Sprain ec2 Forms: - Medication Reconciliation Form ec2 - Thank You Letter ec2 - Antibiotic Education ec2 - Prescription Opioid Use ec2 - Patient Portal Instructions ec2 - Leadership Thank You Letter ec2 Prescriptions: - methocarbamol 500 mg Oral tablet - take 2 tablets ORAL route 4 times per day; 20 tablet; Refills: 0, Product ec2 Selection Permitted Signatures: Darnell Watkins RN RN jb4 Joseluis Ramirez MD MD ec2 Alondra Peguero RN RN nw1
--- NOTE | 2023-07-14 01:04 | ER ---
Nurse's Notes [facility] Name: Ruben Alamo Age: 47 yrs Sex: Male : 1975 Arrival Date: 07/14/2023 Time: 00:48 Bed 6 Private MD: Diagnosis: Sprain of shoulder joint Presentation: 07/14 01:00 Chief complaint: Patient states: I was here last night for falling on my shoulder. The jb4 pain has gotten worse. Coronavirus screen: At this time, the client does not indicate any symptoms associated with coronavirus-19. Ebola Screen: No symptoms or risks identified at this time. Initial Sepsis Screen: Does the patient meet any 2 criteria? No. Patient's initial sepsis screen is negative. Does the patient have a suspected source of infection? No. Patient's initial sepsis screen is negative. Risk Assessment: Do you want to hurt yourself or someone else? Patient reports no desire to harm self or others. Onset of symptoms was July 14, 2023. Transition of care: patient was not received from another setting of care. 01:00 Method Of Arrival: Ambulatory jb4 01:00 Acuity: LIZBETH 5 jb4 Historical: - Allergies: 01:02 Iodine; jb4 01:02 PENICILLINS; jb4 01:02 SHELLFISH; jb4 - Home Meds: 01:02 [place] Oral [Active]; jb4 - PMHx: 01:02 Chronic pain; headache; Hypertensive disorder; jb4 - PSHx: 01:02 facial reconstruction; Spinal surgery; jb4 - Immunization history:: Adult Immunizations not up to date. - Social history:: Smoking status: Patient denies any tobacco usage or history of. Screenin:02 [facility] ED Fall Risk Assessment (Adult) History of falling in the last 3 months, jb4 including since admission No falls in past 3 months (0 pts) Confusion or Disorientation No (0 pts). Abuse screen: Denies threats or abuse. Nutritional screening: No deficits noted. Tuberculosis screening: No symptoms or risk factors identified. Assessment: 01:02 General: Appears in no apparent distress. uncomfortable, Behavior is calm, cooperative, jb4 appropriate for age. Pain: Complains of pain in left scapular area Pain does not radiate. Pain currently is 8 out of 10 on a pain scale. Neuro: Level of Consciousness is awake, alert, obeys commands, Oriented to person, place, time, situation. Cardiovascular: Patient's skin is warm and dry. Respiratory: Airway is patent Respiratory effort is even, unlabored, Respiratory pattern is regular, symmetrical. GI: No signs and/or symptoms were reported involving the gastrointestinal system. : No signs and/or symptoms were reported regarding the genitourinary system. EENT: No signs and/or symptoms were reported regarding the EENT system. Derm: Skin is intact, Skin is pink, warm \T\ dry. Musculoskeletal: Circulation, motion, and sensation intact. Range of motion: intact in all extremities. Vital Signs: 01:00 BP 146 / 76; Pulse 70; Resp 16; Temp 98.1(O); Pulse Ox 99% on R/A; Weight 131.54 kg jb4 (R); Height 5 ft. 4 in. (R); 01:00 Body Mass Index 49.78 (131.54 kg, 162.56 cm) jb4 ED Course: 00:51 Patient arrived in ED. ag3 00:56 Joseluis Ramirez MD is Attending Physician. ec2 01:00 Darnell Watkins RN is Primary Nurse. jb4 01:02 Triage completed. jb4 01:02 Arm band placed on right wrist. jb4 01:02 Patient has correct armband on for positive identification. Bed in low position. Call jb4 light in reach. Side rails up X 1. 01:02 No provider procedures requiring assistance completed. Patient did not have IV access jb4 during this emergency room visit. 01:12 Provided Education on: discharge medication. . nw1 Administered Medications: 01:12 Drug: Methocarbamol PO 500 mg PO once Route: PO; nw1 01:12 Drug: Ketorolac IM 60 mg IM once Route: IM; Site: left deltoid; nw1 Medication: 01:02 VIS not applicable for this client. jb4 Outcome: 01:04 Discharged to home ambulatory, jb4 01:04 Condition: stable 01:04 Discharge instructions given to patient, Instructed on discharge instructions, follow up and referral plans. no drinking with medication, no driving heavy equipment, medication usage, Demonstrated understanding of instructions, follow-up care, medications, Prescriptions given X 1, 01:12 Patient left the ED. jb4 Signatures: Darnell Watkins RN RN jb4 Kianna Gar3 Joseluis Ramirez MD MD ec2 Alondra Peguero RN RN nw1 Corrections: (The following items were deleted from the chart) 01:04 01:03 Discharge ordered by . tiffany jb4
[2023-07-14 01:16] VITALS: BP 146/76; TEMP 98.1; O2SAT 99
[2023-07-14] MEDS ORDERED: methocarbamoL 500 MG TAB ONE (01:18)
[2023-07-14] MEDS ORDERED: KETOROLAC 30 MG/ML INJ ONE (01:19)
== END 2023-07-14 01:12 | disposition home or self-care (01) ==
LOC: ER 00:48
DX: S43.402A Unspecified sprain of left shoulder joint, initial encounter (principal)
CPT/HCPCS: 96372; 99284

== ENCOUNTER 2023-07-21 22:04 | Emergency (ER) | payer BC, SELFPAY ==
--- OUTSIDE RECORDS SUMMARY | 2023-07-21 22:09 | XMS REPORT | Continuity of Care Document ---
:1975 Author Organization [facility] t Address [address] [place] [address] Care Team Providers Name Role Phone Rick Linares Primary Care Physician JENI ROJAS Attending Clinician Unavailable Jeni Veronica Attending Clinician Arjun Reynolds MD Attending Clinician [phone] Angie Purvis Attending Clinician ANGIE ROSAS Attending Clinician Unavailable Kaycee Butt MD Attending Clinician CHER JIMÉNEZ Attending Clinician Unavailable Cher Jiménez DO Attending Clinician BO JONES Attending Clinician Unavailable Bo Hennessy Attending Clinician ELIJAH Attending Clinician Unavailable BETHANY JORDAN Attending Clinician Unavailable Physician, No Primary or Family Admitting Clinician Unavaila ble ELIJAH Admitting Clinician Unavailable Payers Payer Name Policy Type Policy Number Effective Date Expiration Date S leonie SANTIZO BCBS BLUE [id number] 2023 ADVANTAGE HMO 00:00:00 Problems Condition Condition Condition Status Onset Resolution Last Treating Co mments Source Name Details Category Date Date Treatment Clinician Date Backache [facility] (LUF/LI V/SA) No known No known Disease Unive rs active active ity of problems problems [facility] Lumbago Lumbago Problem Active 2017-11-07 Me moria with with 03:47:18 l sciatica, sciatica, Herm marcus left side left side Active Problem 11/07/2017 Family Diagnostic Body mass Body Problem Active 2017-11-07 Me moria index mass index 03:47:18 l (BMI) (BMI) Tavo 45.0-49.9, 45.0-49.9, adult adult Active Problem 11/07/2017 Family Diagnostic Other Other Problem Active 2017-11-07 Memor ia chronic chronic 03:47:18 l pain pain [place] Active Problem 11/07/2017 Family Diagnostic Allergies, [...] Hospita reaction 00 l s to drug VANESSA DRUG Active Unknown-Cmnt Un butch H INGREDI 8-16 ity of DERIVED 00:00: Medical Branch Lorfijose Propensi Active Unknown - Uni vers h ty to See comments 16 ity of Derived adverse 00:00: [place] reaction 00 Medical s Branch No Known DA Active [facility]ie 3-05 [facility] 00:[facility]: [facility] No Known DA Active [facility] Allergie 3-05 [facility] 00:00: [facility] N.K.D.A. N.K.D.A. Active Info Not Enrique elkin Available 10-25 l 00:00: 00 NO KNOWN Drug Active Univers ALLERGIE Class ity of S [facility] Social History Social Habit Start Date Stop Date Quantity Comments Source [facility] Tobacco use and 2022-06-18 2022-06-18 Smokeless [facility] 00:00:00 00:00:00 tobacco non-user Hospital History of Social 2022-06-18 2022-06-[address] function 00:00:00 00:00:00 Hospital Exposure to 2022-05-20 2022-05-30 Not sure University of SARS-CoV-2 (event) 00:00:00 20:57:00 [facility] Sex Assigned At [birth year] [facility] Smoking Status Start Date Stop Date Source [facility] Medications Ordered Filled Start Stop Current Ordering Indication Dosage Frequency Signature Comments Components Source Medication Medication Date Date Medication? Clinician (SIG) Name Name insulin 2022-09- No 10U 10 Units, Univ ers regular 0-27 10-27 IV Push, ity of human 08:15: 07:39 ONCE, 1 [place] (HUMULIN R) 00 :00 dose, On Medi shannan injection Fri Branch 10 Units 07/20/23 at 0315, Routine
Indicatio n for insulin: Hyperglyce ashleigh NaCl 0.9% 2022-09- No 1000mL at 999 Uni vers (NS) bolus 0-27 10-27 mL/hr, ity of infusion 08:15: 08:17 1,000 mL, [place] as 1,000 mL 00 :00 IV Medical Infusion, Branch ONCE, 1 dose, On Sun07/20/23 at 0315, CHRISTINA HYDROcodone 2022-09- No 1{tbl} 1 tablet, Univers -acetaminop 0-27 Oral, ity of hen (NORCO 07:00: 06:32 ONCE, 1 [place] as 5) 5-325 mg 00 :00 dose, On shannan tablet 1 Sun Branch tablet 07/20/23 at 0200, CHRISTINA carBAMazepi 2021- No Take 1 Met hodi [...] 50mg Q.5D Take 1 Meth willi (VOLTAREN) 9- 10-03 tablet (50 st 50 MG EC 00:00: 04:59 mg total) Hos byron tablet 00 :00 by mouth 2 l (two) times a day as needed (for pain and swelling. take w/ food) for up to 7 days. lidocaine 2021-2021- No 4mL Q.[id number] Apply 4 mL Methodi HCL 06-18- [id number] topically st (lidocaine) 00:00: 04:59 3D 3 (three) Hospita 2 % 00 :00 times a l solution day for 3 days. Apply to cottonball and place it by toothache lidocaine 2021-0 2022- No 4mL Q.46604959 Apply 4 mL Methodi HCL 06-18- [id number] topically st (lidocaine) 00:00: 04:59 3D 3 (three) Hospita 2 % 00 :00 times a l solution day for 3 days. Apply to cottonball and place it by toothache lidocaine 2021-0 2022- No 4mL Q.[id number] Apply 4 mL Methodi HCL 06-18- [id number] topically st (lidocaine) 00:00: 04:59 3D 3 (three) Hospita 2 % 00 :00 times a l solution day for 3 days. Apply to cottonball and place it by toothache lidocaine 2022-0 2022- No 4mL Q.[id number] Apply 4 mL Methodi HCL 9-25 -[id number] (lidocaine) 00:00: 04:59 3D 3 (three) Hospita 2 % 00 :00 times a l solution day for 3 days. Apply to cottonball and place it by toothache lidocaine 2022-0 2022- No 4mL Q.27287349 Apply 4 mL Methodi HCL 9-25 -[id number] (lidocaine) 00:00: 04:59 3D 3 (three) Hospita 2 % 00 :00 times a l solution day for 3 days. Apply to cottonball and place it by toothache lidocaine 2-0 2022- No 4mL Q.[id number] Apply 4 mL Methodi HCL 9-18 06-[id number] (lidocaine) 00:00: 04:59 3D 3 (three) Hospita 2 % 00 :00 times a l solution day for 3 days. Apply to cottonball and place it by toothache lidocaine 2-0 2022- No 4mL Q.[id number] Apply 4 mL Methodi HCL 9-25 -[id number] (lidocaine) 00:00: 04:59 3D 3 (three) Hospita 2 % 00 :00 times a l solution day for 3 days. Apply to cottonball and place it by toothache lidocaine 2022-0 2022- No 4mL Q.[id number] Apply 4 mL Methodi HCL 9-25 -[id number] (lidocaine) 00:00: 04:59 3D 3 (three) Hospita 2 % 00 :00 times a l solution day for 3 days. Apply to cottonball and place it by toothache lidocaine 2022-0 2022- No 4mL Q.[id number] Apply 4 mL Methodi HCL 9-25 -[id number] (lidocaine) 00:00: 04:59 3D 3 (three) Hospita 2 % 00 :00 times a l solution day for 3 days. Apply to cottonball and place it by toothache lidocaine 2021- No 4mL Q.[id number] Apply 4 mL Methodi HCL 06-[id number] (lidocaine) 00:00: 04:59 3D 3 (three) Hospita 2 % 00 :00 times a l solution day for 3 days. Apply to cottonball and place it by toothache lidocaine 2021- No 4mL Q.[id number] Apply 4 mL Methodi HCL 06-[id number] (lidocaine) 00:00: 04:59 3D 3 (three) Hospita 2 % 00 :00 times a l solution day for 3 days. Apply to cottonball and place it by toothache lidocaine 2021- No 4mL Q.[id number] Apply 4 mL Methodi HCL 06-[id number] (lidocaine) 00:00: 04:59 3D 3 [...] 1 at 2130, tablet CHRISTINA butalbital- Yes [id number] 1{tbl} Take 1 Univers acetaminoph 9-06 tablet by ity of en-caff 00:00: mouth [place] 50-325-40 00 every 6 Medical mg tablet (six) Branch hours as needed for Pain (scale 4-6) or Pain (scale 7-10). butalbital- Yes [id number] 1{tbl} Take 1 Univers acetaminoph 9-06 tablet by ity of en-caff 00:00: mouth [place] 50-325-40 00 every 6 Medical mg tablet (six) Branch hours as needed for Pain (scale 4-6) or Pain (scale 7-10). ondansetron No 4mg Q8H Take 1 Met hodi [...] 30 days. LISINOPRIL 2022-0 Yes Take by [facility] ORAL 8-16 mouth. ity of 21:45: [address] HYDROcodone 2022-0 Yes 1{tbl} Take 1 Un butch -acetaminop 8-16 tablet by ity of hen (NORCO) 21:45: mouth [place] 10-325 mg 20 every 6 Medical tablet (six) Branch hours as needed. LISINOPRIL 2022-0 Yes Take by [facility] ORAL 8-16 mouth. ity of 21:45: [address] HYDROcodone 2022-0 Yes 1{tbl} Take 1 Un butch -acetaminop 8-16 tablet by ity of hen (NORCO) 21:45: mouth [place] 10-325 mg 20 every 6 Medical tablet (six) Branch hours as needed. LISINOPRIL 2022-0 Yes Take by [facility] ORAL 8-16 mouth. ity of 21:45: [address] HYDROcodone 2022-0 Yes 1{tbl} Take 1 Un butch -acetaminop 8-16 tablet by ity of hen (NORCO) 21:45: mouth [place] 10-325 mg 20 every 6 Medical tablet (six) Branch hours as needed. ketorolac No 30mg 30 mg, Unive rs (TORADOL) [...] Sun Branch 04/23/22 at 1515, CHRISTINA Carisoprodo 2017- Yes Toussaint 1 tablet Memoria l 2-14 Irfan as needed l 03:47: Tavo 13 Meloxicam 2017-0 Yes [place] 1 tablet Memoria 2-14 Irfan l 03:47: Tavo Garibay Hydrocodone 0 Yes [place] 1 tablet Memoria [...] 2-14 Irfan as needed l hen 03:47: Tvao Garibay Carisoprodo 2018-0 Yes [place] 1 tablet [...] l 2-14 Irfan as needed l 03:47: Hydrocodone 2018-0 Yes [place] 1 tablet Memoria -Acetaminop 2-14 Irfan as needed l hen 03:47: Acetaminoph 2018-0 Yes [place] 1 tablet [...] [facility] 00:[facility]: Memoria 00 l (LUF/LI V/SA) [place] 2018-0 Yes [place] 1 tablet Enrique elkin 1-15 Irfan as needed l 00:00: [place] 2018-0 Yes [place] 1 tablet Memor ia 1-15 Irfan as needed l 00:00: Meloxicam 2018-0 Yes [place] 1 tablet Memoria 1-15 Irfan l 00:00: [place] 2018-0 Yes [place] 1 tablet Enrique elkin 1-15 Irfan as needed l 00:00: S[place] 2018-0 Yes [place] 1 tablet Memor ia 1-15 Irfan as needed l 00:00: Meloxicam 2018-0 Yes [place] 1 tablet Memoria 1-15 Irfan l 00:00: [place] 2018-0 Yes [place] 1 tablet Enrique elkin 1-15 Irfan as needed l 00:00: Soma 2018-0 Yes [place] 1 tablet Memor ia 1-15 Irfan as needed l 00:00: Meloxicam 2018-0 Yes [place] 1 tablet Memoria 1-15 Irfan l 00:00: [place] 2018-0 Yes [place] 1 tablet Enrique elkin 1-15 Irfan as needed l 00:00: Soma 2018-0 Yes [place] 1 tablet Memor ia 1-15 Irfan as needed l 00:00: Meloxicam 2018-0 Yes [place] 1 tablet Memoria 1-15 Irfan l 00:00: [place] 2018-0 Yes [place] 1 tablet Enrique elkin 1-15 Irfan as needed l 00:00: S[place] 2018-0 Yes [place] 1 tablet Memor ia 1-15 Irfan as needed l 00:00: Meloxicam 2018-0 Yes [place] 1 tablet Memoria 1-15 Irfan l 00:00: [place] 2018-0 Yes [place] 1 tablet Enrique elkin 1-15 Irfan as needed l 00:00: Soma 2018-0 Yes [place] 1 tablet Memor ia 1-15 Irfan as needed l 00:00: Meloxicam 2018-0 Yes [place] 1 tablet Memoria 1-15 Irfan l 00:00: [place] 2018-0 Yes [place] 1 tablet Enrique elkin 1-15 Irfan as needed l 00:00: [place] 2018-0 Yes [place] 1 tablet Memor ia 1-15 Irfan as needed l 00:00: Meloxicam 2018-0 Yes [place] 1 tablet Memoria 1-15 Irfan l 00:00: Meloxicam 2018-0 Yes [place] 1 tablet Memoria 1-15 Irfan l 00:00: [place] 2018-0 Yes [place] 1 tablet Memor ia 1-15 Irfan as needed l 00:00: [place] 2018-0 Yes [place] 1 tablet Enrique elkin 1-15 Irfan as needed l 00:00: Meloxicam 2018-0 Yes [place] 1 tablet Memoria 1-15 Irfan l 00:00: [place] 2018-0 Yes [place] 1 tablet Memor ia 1-15 Irfan as needed l 00:00: [place] 2018-0 Yes Otussaint 1 tablet Enrique elkin 1-15 Irfan as needed l 00:00: Meloxicam 2018-0 Yes [place] 1 tablet Memoria 1-15 Irfan l 00:00: [place] 2018-0 Yes [place] 1 tablet Memor ia 1-15 Irfan as needed l 00:00: [place] 2018-0 Yes [place] 1 tablet Enrique elkin 1-15 Irfan as needed l 00:00: Meloxicam 2018-0 Yes [place] 1 tablet Memoria 1-15 Irfan l 00:00: [place] 2018-0 Yes [place] 1 tablet Memor ia 1-15 Irfan as needed l 00:00: [place] 2018-0 Yes [place] 1 tablet Enrique elkin 1-15 Irfan as needed l 00:00: Meloxicam 2018-0 Yes [place] 1 tablet Memoria 1-15 Irfan l 00:00: [place] 2018-0 Yes [place] 1 tablet Memor ia 1-15 Irfan as needed l 00:00: [place] 2018-0 Yes [place] 1 tablet Enrique elkin 1-15 Irfan as needed l 00:00: Meloxicam 2018-0 Yes [place] 1 tablet Memoria 1-15 Irfan l 00:00: [place] 2018-0 Yes [place] 1 tablet Memor ia 1-15 Irfan as needed l 00:00: [place] 2018-0 Yes [place] 1 tablet Enrique elkin 1-15 Irfan as needed l 00:00: Meloxicam 2018-0 Yes [place] 1 tablet Memoria 1-15 Irfan l 00:00: [place] 2018-0 Yes [place] 1 tablet Memor ia 1-15 Irfan as needed l 00:00: [place] 2018-0 Yes [place] 1 tablet Enrique elkin 1-15 Irfan as needed l 00:00: [place] 2018-0 Yes [place] 1 tablet Enrique elkin [...] tablet needed for Pain (scale 4-6). acetaminoph 2015- Yes 1{tbl} Take 1 Tab Univers en-codeine 3-31 by mouth ity o f (TYLENOL-CO 00:00: every 4 [place] as DEINE #3) 00 (four) Medical 300-30 mg hours as Branch tablet needed for Pain (scale 4-6). acetaminoph 2015-0 Yes 1{tbl} Take 1 Tab Univers en-codeine 3-31 by mouth ity o f (TYLENOL-CO 00:00: every 4 [place] as DEINE #3) 00 (four) Medical 300-30 mg hours as Branch tablet needed for Pain (scale 4-6). acetaminoph 2015-0 Yes 1{tbl} Take 1 Tab Univers en-codeine 3-31 by mouth ity o f (TYLENOL-CO 00:00: every 4 [place] as DEINE #3) 00 (four) Medical 300-30 mg hours as Branch tablet needed for Pain (scale 4-6). Vital Signs Vital Name Observation Time Observation Value Comments Source Systolic blood 2023-07-20 08:16:00 150 mm[Hg] Univer [facility] [place] Diastolic blood 2023-07-20 08:16:00 90 mm[Hg] Unive [facility] Body temperature 2023-07-20 08:16:00 37.17 Amisha [facility] Respiratory rate 2023-07-20 08:16:00 19 /min [facility] Oxygen saturation in 2023-07-20 08:16:00 100 /min [facility] Arterial blood by [facility] Pulse oximetry [place] Heart rate 2023-07-20 05:30:00 73 /min [facility] Body height 2023-07-20 05:30:00 165.1 cm [facility] Body weight 2023-07-20 05:30:00 127.007 kg [facility] BMI 2023-07-20 05:30:00 46.59 kg/m2 [facility] Systolic blood 2022-05-31 01:59:00 128 mm[Hg] [facility] 2022-05-31 01:59:00 81 mm[Hg] Unive rsity of pressure [place] [facility] Heart rate 2022-05-31 01:59:00 78 /min [facility] [place] [facility] Body temperature 2022-05-31 01:59:00 36.94 Amisha [facility] [place] [facility] Respiratory rate 2022-05-31 01:59:00 18 /min [facility] [place] [facility] Body height 2022-05-31 01:59:00 165.1 cm [facility] [place] [facility] Body weight 2022-05-31 01:59:00 127.007 kg [facility] [place] [facility] BMI 2022-05-31 01:59:00 46.59 kg/m2 [facility] [place] [facility] Oxygen saturation in 2022-05-31 01:59:00 95 /min University of Arterial blood by [place] [employer] shannan Pulse oximetry Branch Systolic blood 2022-05-10 [...] /min University of Arterial blood by [place] [employer] shannan Pulse oximetry Branch Body weight 2022-04-23 20:11:00 133.131 kg [facility] [place] [facility] BMI 2022-04-23 20:11:00 50.38 kg/m2 [facility] [place] [facility] Systolic blood 2022-04-23 20:09:00 140 mm[Hg] Univer sity of pressure [place] [facility] Diastolic blood 2022-04-23 20:09:00 81 mm[Hg] Unive rsity of pressure [facility] Heart rate 2022-04-23 20:09:00 66 /min Universi ty [facility] Body temperature 2022-04-23 20:09:00 36.72 Amisha Univ ersity [facility] Respiratory rate 2022-04-23 20:09:00 17 /min Univ ersity [facility] Body height 2022-04-23 20:09:00 162.6 cm [facility] [place] [facility] Oxygen saturation in 2022-04-23 20:09:00 97 /min University of Arterial blood by [facility] Pulse oximetry [place] Systolic blood 2022-06-18 15:20:24 157 mm[Hg] [facility] pressure Diastolic blood 2022-06-18 15:20:24 74 mm[Hg] [facility] pressure Heart rate 2022-06-18 15:20:24 53 /min [facility] [place] [facility] Body temperature 2022-06-18 15:20:24 36.78 Amisha [facility] Respiratory rate 2022-06-18 15:20:24 16 /min [facility] Oxygen saturation in 2022-06-18 15:20:24 97 /min [facility] Arterial blood by Pulse oximetry Body height 2022-06-18 12:48:00 162.6 cm [facility] Body weight 2022-06-18 12:48:00 127.007 kg [facility] [place] [facility] BMI 2022-06-18 12:48:00 48.06 kg/m2 [facility] [place] [facility] Systolic blood 2022-05-21 00:33:00 132 mm[Hg] [facility] pressure Diastolic blood 2022-05-21 00:33:00 64 mm[Hg] [facility] pressure Heart rate 2022-05-21 00:33:00 64 /min [facility] [place] [facility] Oxygen saturation in 2022-05-21 00:33:00 98 /min [facility] Arterial blood by Pulse oximetry Body temperature 2022-05-20 23:53:12 36.17 Amisha [facility] Respiratory rate 2022-05-20 23:53:12 18 /min [facility] Body height 2022-05-20 23:52:00 162.6 cm [facility] Body weight 2022-05-20 23:52:00 127.007 kg [facility] [place] [facility] BMI 2022-05-20 23:52:00 48.06 kg/m2 [facility] [place] [facility] Weight 2017-10-25 15:00:00 [facility] [place] Height 2017-10-25 15:00:00 [facility] [place] Temperature Oral (F) 2017-10-25 15:00:00 97.8 F [facility] [place] Heart Rate 2017-10-25 15:00:00 [facility] [place] Diastolic (mm Hg) 2017-10-25 15:00:00 Mem orial [place] Systolic (mm Hg) 2017-10-25 15:00:00 Enrique rial [place] O2% BldC Oximetry 2017-10-21 12:00:00 98 % [facility] (LUF/BLANCA/SA) BP Systolic 2017-10-21 12:00:00 132 mm[Hg] [facility] (LUF/BLANCA/SA) BP Diastolic 2017-10-21 12:00:00 78 mm[Hg] [facility] (LUF/BLANCA/SA) Height 2017-10-21 12:00:00 64 in [facility] (LUF/BLANCA/SA) Weight Measured 2017-10-21 12:00:00 282.19 lbs [facility] (LUF/BLANCA/SA) BMI (Body Mass 2017-10-21 12:00:00 48.7 [facility]) [facility] (LUF/BLANCA/SA) Body Temperature 2017-10-21 12:00:00 97.5 F [facility] (LUF/BLANCA/SA) Respiratory Rate 2017-10-21 12:00:00 20 /min [facility] (F/BLANCA/SA) Weight 2017-10-08 15:45:00 [facility] [place]avo Height 2017-10-08 15:45:00 [facility] [place] Temperature Oral (F) 2017-10-08 15:45:00 96.8 F [facility] [place] Heart Rate 2017-10-08 15:45:00 [facility] [place] Diastolic (mm Hg) 2017-10-08 15:45:00 Mem orial [place] Systolic (mm Hg) 2017-10-08 15:45:00 Enrique rial [place] Procedures Procedure Date / Time Performing Clinician Source Performed POCT GLUCOSE (AUTOMATED) 2023-07-20 08:08:00 Jeni Rojas [facility] POCT GLUCOSE (AUTOMATED) 2023-07-20 07:31:00 Jeni Rojas [facility] CT CERVICAL SPINE WO 2023-07-20 06:20:27 [facility] Branch XR CHEST 1 VW 2023-07-20 05:54:14 Sandor Galicia [facility] LIPASE 2023-07-20 05:42:00 Sandor Galicia [facility] TROPONIN I 2023-07-20 05:42:00 Sandor Galicia [facility] COMP. METABOLIC PANEL 2023-07-20 05:42:00 Sandor Galicia [facility] ([id number]) Medical [place] CBC WITH DIFF 2023-07-20 05:42:00 Sandor Galicia [facility] NOTICE OF PRIVACY 2023-07-20 05:20:03 [facility] CONSENT/REFUSAL FOR 2023-07-20 05:19:08 Doctor Unassigned, No [facility] [place] [facility] Name Medical Branch CT MAXILLOFACIAL WO 2022-06-18 14:48:32 Frida Patton [facility] [place] [facility] CONTRAST CONSENT/REFUSAL FOR 2022-05-31 01:55:15 Doctor Unassigned, No [facility] [place] [facility] Name Medical Branch CT CERVICAL SPINE WO 2022-05-21 01:24:[address] [facility] CONTRAST CT HEAD WO CONTRAST 2022-05-21 01:15:40 Kaycee Butt [facility] POC GLUCOSE 2022-05-21 00:33:00 DarciKaycee Rubalcava [facility] [place] [facility] NOTICE OF PRIVACY 2022-05-10 02:37:04 Doctor Unassigned, [facility] Name Medical Branch CONSENT/REFUSAL FOR 2022-05-10 02:35:02 Doctor Unassigned, No [facility] [place] [facility] Name Medical Branch CONSENT/REFUSAL FOR 2022-04-23 20:00:28 Doctor Unassigned, No [facility] Name Medical Branch Plan of Care Planned Activity Planned Date Details Comments Source Future Scheduled 2023-07-21 [facility] 22:07:17 malignant neoplasm of colon (procedure) [code = 039145123] Future Scheduled 2023-07-21 [facility] Test 22:07:17 malignant neoplasm of colon (procedure) [code = 342969181] Future Scheduled 2023-07-21 [facility] Test 22:07:17 malignant neoplasm of colon (procedure) [code = 743646439] Future Scheduled 2023-07-21 Hepatitis C screening [facility] Test 22:07:17 (procedure) [code = 754263286] Future Scheduled 2023-07-21 [facility] Test 22:07:17 malignant neoplasm of colon (procedure) [code = 900783382] Future Scheduled 2023-07-21 [facility] Test 22:07:17 malignant neoplasm of colon (procedure) [code = 034771689] Future Scheduled 2023-07-21 [facility]07[facility]17 season) [code = COVID-19 VACCINE (3 - season)] Future Scheduled 2023-07-21 INFLUENZA VACCINE [facility] 22:07:17 (#1) [code = INFLUENZA VACCINE (#1)] Future Scheduled 2023-07-06 [facility] Test 06:35:42 malignant neoplasm of colon (procedure) [code = 973497047] Future Scheduled 2023-07-06 [facility] Test 06:35:42 malignant neoplasm of colon (procedure) [code = 495452656] Future Scheduled 2023-07-06 [facility] Test 06:35:42 malignant neoplasm of colon (procedure) [code = 486830412] Future Scheduled 2023-07-06 Hepatitis C screening [facility] Test 06:35:42 (procedure) [code = 089448397] Future Scheduled 2023-07-06 [facility] Test 06:35:42 malignant neoplasm of colon (procedure) [code = 362249381] Future Scheduled 2023-07-06 [facility] Test 06:35:42 malignant neoplasm of colon (procedure) [code = 330409715] Future Scheduled 2023-07-06 COVID-19 VACCINE (3 - [facility] Test 06:35:42 ) [code = COVID-19 VACCINE ()] Future Scheduled 2023-07-06 INFLUENZA VACCINE [facility] Test 06:35:42 (#1) [code = INFLUENZA VACCINE (#1)] Future Scheduled 2023-07-06 RSV VACCINES > 60 YR Met [facility] Test 06:35:42 (1 - 1-dose 60+ series) [code = RSV VACCINES > 60 YR (1 - 1-dose 60+ series)] Future Scheduled 2023-07-06 [facility] Test 06:35:42 malignant neoplasm of colon (procedure) [code = 739589580] Future Scheduled 2023-07-06 [facility] Test 06:35:42 malignant neoplasm of colon (procedure) [code = 771275120] Future Scheduled 2023-07-06 [facility] Test 06:35:42 malignant neoplasm of colon (procedure) [code = 229087500] Future Scheduled 2023-07-06 Hepatitis C screening [facility] Test 06:35:42 (procedure) [code = 612407572] Future Scheduled 2023-07-06 [facility] Test 06:35:42 malignant neoplasm of colon (procedure) [code = 917150225] Future Scheduled 2023-07-06 [facility] Test 06:35:42 malignant neoplasm of colon (procedure) [code = 663673025] Future Scheduled 2023-07-06 COVID-19 VACCINE (3 - [facility] Test 06:35:42 ) [code = COVID-19 VACCINE ()] Future Scheduled 2023-07-06 INFLUENZA VACCINE [facility] 06:35:42 (#1) [code = INFLUENZA VACCINE (#1)] Future Scheduled 2023-07-06 RSV VACCINES > 60 YR Met [facility] Test 06:35:42 (1 - 1-dose 60+ series) [code = RSV VACCINES > 60 YR (1 - 1-dose 60+ series)] Future Scheduled 2023-06-24 [facility] malignant neoplasm of colon (procedure) [code = 278246593] Future Scheduled 2023-06-24 [facility] 02:49:40 malignant neoplasm of colon (procedure) [code = 514426935] Future Scheduled 2023-06-24 [facility] 02:49:40 malignant neoplasm of colon (procedure) [code = 238280413] Future Scheduled 2023-06-24 [facility] 02:[facility] (procedure) [code = 135102675] Future Scheduled 2023-06-24 COVID-19 VACCINE (3 - [facility] 02:49:40 Pfizer series) [code = COVID-19 VACCINE (3 - Pfizer series)] Future Scheduled 2023-06-24 [facility] 02:49:40 malignant neoplasm of colon (procedure) [code = 630122869] Future Scheduled 2023-06-24 [facility] 02:49:40 malignant neoplasm of colon (procedure) [code = 775806337] Future Scheduled 2023-06-24 [facility]INE [facility] 02:49:40 (#1) [code = INFLUENZA VACCINE (#1)] Future Scheduled 2023-06-24 [facility] 02:49:40 malignant neoplasm of colon (procedure) [code = 626075750] Future Scheduled 2023-06-24 [facility] 02:49:40 malignant neoplasm of colon (procedure) [code = 063089342] Future Scheduled 2023-06-24 [facility] 02:49:40 malignant neoplasm of colon (procedure) [code = 362992291] Future Scheduled 2023-06-24 [facility] 02:49:40 (procedure) [code = 196186924] Future Scheduled 2023-06-24 COVID-19 VACCINE (3 - [facility] 02:49:40 Pfizer series) [code = COVID-19 VACCINE (3 - Pfizer series)] Future Scheduled 2023-06-24 [facility] 02:49:40 malignant neoplasm of colon (procedure) [code = 487601514] Future Scheduled 2023-06-24 [facility] 02:49:40 malignant neoplasm of colon (procedure) [code = 231147862] Future Scheduled 2023-06-24 [facility] 02:49:40 (#1) [code = INFLUENZA VACCINE (#1)] Future Scheduled 2023-05-28 [facility] 18:05:11 malignant neoplasm of colon (procedure) [code = 855497015] Future Scheduled 2023-05-28 [facility] 18:05:11 malignant neoplasm of colon (procedure) [code = 911315293] Future Scheduled 2023-05-28 [facility] 18:05:11 malignant neoplasm of colon (procedure) [code = 995821146] Future Scheduled 2023-05-28 Hepatitis C screening [facility] Test 18:05:11 (procedure) [code = 167479429] Future Scheduled 2023-05-28 COVID-19 VACCINE (3 - [facility] Test 18:05:11 Pfizer series) [code = COVID-19 VACCINE (3 - Pfizer series)] Future Scheduled 2023-05-28 [facility] 18:05:11 malignant neoplasm of colon (procedure) [code = 322272211] Future Scheduled 2023-05-28 [facility] 18:05:11 malignant neoplasm of colon (procedure) [code = 524955119] Future Scheduled 2023-05-28 [facility] 18:05:11 (#1) [code = INFLUENZA VACCINE (#1)] Future Scheduled 2023-04-27 [facility] 11:13:08 malignant neoplasm of colon (procedure) [code = 147343121] Future Scheduled 2023-04-27 [facility] 11:13:08 malignant neoplasm of colon (procedure) [code = 747219669] Future Scheduled 2023-04-27 [facility] 11:13:08 malignant neoplasm of colon (procedure) [code = 398541898] Future Scheduled 2023-04-27 Hepatitis C screening [facility] Test 11:13:08 (procedure) [code = 645525840] Future Scheduled 2023-04-27 COVID-19 VACCINE (3 - [facility] Test 11:13:08 Pfizer series) [code = COVID-19 VACCINE (3 - Pfizer series)] Future Scheduled 2023-04-27 [facility] 11:13:08 malignant neoplasm of colon (procedure) [code = 806647769] Future Scheduled 2023-04-27 [facility] 11:13:08 malignant neoplasm of colon (procedure) [code = 496135966] Future Scheduled 2023-04-27 [facility]ACCINE [facility] 11:13:08 [code = INFLUENZA VACCINE] Future Scheduled 2023-04-27 [facility] 11:13:08 malignant neoplasm of colon (procedure) [code = 594292250] Future Scheduled 2023-04-27 [facility] 11:13:08 malignant neoplasm of colon (procedure) [code = 679023873] Future Scheduled 2023-04-27 [facility] 11:13:08 malignant neoplasm of colon (procedure) [code = 985309460] Future Scheduled 2023-04-27 [facility] 11:13:08 (procedure) [code = 881935071] Future Scheduled 2023-04-27 COVID-19 VACCINE (3 - [facility] 11:13:08 Pfizer series) [code = COVID-19 VACCINE (3 - Pfizer series)] Future Scheduled 2023-04-27 [facility] 11:13:08 malignant neoplasm of colon (procedure) [code = 863372066] Future Scheduled 2023-04-27 [facility] 11:13:08 malignant neoplasm of colon (procedure) [code = 579580164] Future Scheduled 2023-04-27 [facility]ZA VACCINE [facility] 11:13:08 [code = INFLUENZA VACCINE] Future Scheduled 2023-01-09 Hepatitis C screening [facility] Test 02:12:34 (procedure) [code = 107600915] Future Scheduled 2023-01-09 COVID[facility]19 [facility]ACCINE [facility] 02:12:34 Booster for Pfizer series) [code = COVID-19 VACCINE (3 - Booster for Pfizer series)] Future Scheduled 2023-01-09 COLONOSCOPY SCREENING [facility] Test 02:12:34 [code = COLONOSCOPY SCREENING] Future Scheduled 2023-01-09 [facility]ZA VACCINE [facility] 02:12:34 [code = INFLUENZA VACCINE] Future Scheduled 2023-01-09 [facility] 02:12:34 (procedure) [code = 200060253] Future Scheduled 2023-01-09 COVID-19 VACCINE (3 - [facility] 15:04:49 (procedure) [code = 358623014] Future Scheduled 2022-09-08 COVID-19 VACCINE (3 - [facility] 15:04:49 Booster for Pfizer series) [code = COVID-19 VACCINE (3 - Booster for Pfizer series)] Future Scheduled 2022-09-08 [facility] 15:04:49 [code = INFLUENZA VACCINE] Future Scheduled 2022-09-08 [facility] 15:04:49 (procedure) [code = 537532113] Future Scheduled 2022-09-08 COVID-19 VACCINE ([facility] 15:04:49 Booster for Pfizer series) [code = COVID-19 VACCINE (3 - Booster for Pfizer series)] Future Scheduled 2022-09-08 [facility] 15:04:49 [code = INFLUENZA VACCINE] Future Scheduled 2022-09-08 [facility] 15:04:49 (procedure) [code = 493271428] Future Scheduled 2022-09-08 COVID-19 VACCINE ([facility] 15:04:49 Booster for Pfizer series) [code = COVID-19 VACCINE (3 - Booster for Pfizer series)] Future Scheduled 2022-09-08 [facility]ZA VACCINE [facility] 15:04:49 [code = INFLUENZA VACCINE] Future Scheduled 2022-09-08 [facility] 15:04:49 (procedure) [code = 896752979] Future Scheduled 2022-09-08 COVID-19 VACCINE (3 - [facility] Test 15:04:49 Booster for Pfizer series) [code = COVID-19 VACCINE (3 - Booster for Pfizer series)] Future Scheduled 2022-09-08 INFLUENZA VACCINE [facility] Test 15:04:49 [code = INFLUENZA VACCINE] Future Scheduled 2022-06-18 HEPATITIS B VACCINES Met [facility] Test 09:25:33 (1 of 3 - 3-dose series) [code = HEPATITIS B VACCINES (1 of 3 - 3-dose series)] Future Scheduled 2022-06-18 Hepatitis C screening [facility] Test 09:25:33 (procedure) [code = 060700196] Future Scheduled 2022-06-18 COVID-19 VACCINE (3 - [facility] Test 09:25:33 Booster for Pfizer series) [code = COVID-19 VACCINE (3 - Booster for Pfizer series)] Future Scheduled 2022-06-18 INFLUENZA VACCINE [facility] Test 09:25:33 [code = INFLUENZA VACCINE] Future Scheduled 2022-06-18 HEPATITIS B VACCINES Met [facility] Test 09:25:33 (1 of 3 - 3-dose series) [code = HEPATITIS B VACCINES (1 of 3 - 3-dose series)] Future Scheduled 2022-06-18 Hepatitis C screening [facility] Test 09:25:33 (procedure) [code = 531919499] Future Scheduled 2022-06-18 COVID-19 VACCINE (3 - [facility] Test 09:25:33 Booster for Pfizer series) [code = COVID-19 VACCINE (3 - Booster for Pfizer series)] Future Scheduled 2022-06-18 INFLUENZA VACCINE [facility] Test 09:25:33 [code = INFLUENZA VACCINE] Future Scheduled 2022-06-18 HEPATITIS B VACCINES [facility] Test 09:25:33 (1 of 3 - 3-dose series) [code = HEPATITIS B VACCINES (1 of 3 - 3-dose series)] Future Scheduled 2022-06-18 Hepatitis C screening [facility] Test 09:25:33 (procedure) [code = 651940084] Future Scheduled 2022-06-18 COVID-19 VACCINE (3 - [facility] Test 09:25:33 Booster for Pfizer series) [code = COVID-19 VACCINE (3 - Booster for Pfizer series)] Future Scheduled 2022-06-18 INFLUENZA VACCINE [facility] Test 09:25:33 [code = INFLUENZA VACCINE] Future Scheduled 2022-06-09 HEPATITIS B VACCINES [facility] Test 18:36:38 (1 of 3 - 3-dose series) [code = HEPATITIS B VACCINES (1 of 3 - 3-dose series)] Future Scheduled 2022-06-09 Hepatitis C screening [facility] Test 18:36:38 (procedure) [code = 518563832] Future Scheduled 2022-06-09 COVID-19 VACCINE (3 - [facility] Test 18:36:38 Booster for Pfizer series) [code = COVID-19 VACCINE (3 - Booster for Pfizer series)] Future Scheduled 2022-06-09 INFLUENZA VACCINE [facility] Test 18:36:38 [code = INFLUENZA VACCINE] Future Scheduled 2022-05-25 HEPATITIS B VACCINES [facility] Test 07:52:22 (1 of 3 - 3-dose series) [code = HEPATITIS B VACCINES (1 of 3 - 3-dose series)] Future Scheduled 2022-05-25 Hepatitis C screening [facility] Test 07:52:22 (procedure) [code = 330618512] Future Scheduled 2022-05-25 COVID-19 VACCINE (3 - [facility] Test 07:52:22 Booster for Pfizer series) [code = COVID-19 VACCINE (3 - Booster for Pfizer series)] Future Scheduled 2022-05-25 INFLUENZA VACCINE [facility] Test 07:52:22 [code = INFLUENZA VACCINE] Future Scheduled 2022-05-25 HEPATITIS B VACCINES [facility] Test 07:52:22 (1 of 3 - 3-dose series) [code = HEPATITIS B VACCINES (1 of 3 - 3-dose series)] Future Scheduled 2022-05-25 Hepatitis C screening [facility] Test 07:52:22 (procedure) [code = 972723421] Future Scheduled 2022-05-25 COVID-19 VACCINE (3 - [facility] Test 07:52:22 Booster for Pfizer series) [code = COVID-19 VACCINE (3 - Booster for Pfizer series)] Future Scheduled 2022-05-25 INFLUENZA VACCINE Method [facility] Test 07:52:22 [code = INFLUENZA VACCINE] Encounters Start End Encounter Admission Attending Care Care Encounter Source Date/Time Date/Time Type Type Clinicians Facility Department ID 2023-07-21 Outpatient [id number] [id number] 31EF 30F2-2 [facility] 22:07:37 8S9X-69Y0 7D-93O2-4V8 C1A-39G4- 9 l -8T52-776 1-8412H6541 J88-0740M7 Taov [id number] 1DC 6671DC 2023-07-14 Outpatient [id number]- [id number] 4868 9EFC-6 [facility] 00:51:20 33E3-6765 E4-4150-8E1 8U0-1743- 8 l -0H9Q-559 E-181E5N217 F6B-593I8M Tavo [id number] 053 721923 3253-10-20 Outpatient 7SN77V8D- 7UX97W7U-B9 8FC7 7D6D-E [facility] 01:23:31 T2VS-8H2P CA-7A7G-0X6 7CA-4E7E- 8 l -2A8U-33S B-29C258276 G6T-69Y204 Tavo [id number] 71F 59751Q 2023-07-02 Outpatient 8MWZH2Q4- 0QWZP6U9-70 9DBE E8E3-0 [facility] 08:48:04 061C-482C 1C-482C-8C0 61C-482C- 8 l -7R3D-148 F-565BEE775 K7E-461FWG Tavo PQE129H2Q C8D 617C8D 2023-06-24 Outpatient [id number]- 35X4ZYXX-76 51C1 AAAB-9 [facility] 02:49:59 9981-479A 81-479A-962 981-479A- 9 l -9621-347 1-7856G92IB 621-3472C3 Tavo 5N62PLTCN EAC 9EBEAC 2023-06-03 Outpatient [id number]- [id number] 1108 20D3-5 [facility] 21:49:39 5824-4CD0 24-9VH0-VT6 824-4CD0- B l -EI67-6NY 5-4IM1NP219 N37-8CW0QK Tavo 6NU96976C 99E 90044O 2023-05-13 Outpatient [id number]- 9EH1ET22-99 9FB8 AE55-2 [facility] 00:04:30 72C2-0N67 E3-0S89-989 8T3-9H44- 8 l -818B-D48 B-B96D63835 18B-D48E11 Tavo X76624W30 B77 601B77 2023-04-28 Outpatient [id number]- SL059Z31-3S BF11 8E44-4 [facility] 01:56:12 6M35-97B0 29-91H1-19R P37-62M6- 8 l -27L3-817 6-9675638UP 6Q9-568709 Tavo 1940MU74Z 55D 4BD55D 2023-02-13 Outpatient [id number]- 84Q3J322-W9 74F9 E380-D [facility] 07:15:33 E379-4ON7 14-7ET2-IS4 414-4AA9- A l -CZ3U-4YB A-5MSBH7G71 Z6U-8OUGS3 [place] RK0Q37A0S F4B A56F4B 2023-01-21 Outpatient [id number]- 55U341E4-7Q 16F3 10F0-0 [facility] 18:12:35 2OU2-37K9 C8-04I0-76P EC8-41B6- 8 l -84FA-CDD A-XIK515EJG 4FA-RPB153 Tavo 509UFW011 063 CBN832 2022-12-02 Outpatient [id number]- 77K770K3-10 04F8 97C6-9 [facility] 21:50:02 977E-4F82 7E-9Z97-384 77E-4F82- 8 l -8693-8E8 3-0D9L34104 693-8E8C26 [place] C387036Q9 6F6 1306F6 2022-11-12 [facility] W3901XR0- U5388CD7-CW F702 5ED6-A [facility] 01:29:42 ADA0-43F6 A0-32G3-P07 DA0-43F6- A l -T676-21D 6-74E9M78QZ 116-87F8D9 Tavo 8B01NYH1P C1D 5BBC1D 2022-10-16 Outpatient [id number]- 6H381QFM-7W 7A87 7EEE-1 [facility] 06:48:40 9CG3-0671 B4-4798-8A7 AB4-4798- 8 l -3G3M-40Q F-49H4EW116 E3I-11V1LO Tavo 5VU463T21 D64 698D64 2022-09-25 Outpatient [id number]- 2RZ5567U-66 3BD2 723F-9 [facility] 18:40:25 37Q9-9V03 D1-8M40-69C 0C9-2D91- 8 l -89BD-1A5 D-0W8REIE27 9BD-1A5DCD Tavo ILRZ111R2 6A3 E256A3 2022-07-11 Outpatient [id number]- 54S9R49Y-61 94C6 F00D-5 [facility] 20:33:16 53E9-08WX F4-47BE-8F8 5Y3-66ZM- 8 l -9Z4N-94Y F-67JACV933 T5P-84DFKJ Tavo UDG326VVP FAD 309FAD 2022-07-05 Outpatient [id number]- 2836O8U2-53 3842 B7D1-4 [facility] 21:55:55 82B0-04M6 E6-19P7-I09 9Y4-85Z5- A l -W39S-4U5 A-8Q440WEN7 53A-3I884A Tavo 49DMV5Y6Z F6F BA1F6F 2022-06-20 Outpatient SBFHT6JH- FXCLW6MN-U4 FEAA B0FE-B [facility] 20:55:03 E71H-6ZEC 9E-4FBC-9E6 39E-4FBC- 9 l -9Q36-K21 0-N13KWA554 U72-A00LKA Tavo SBE0973F7 7B9 9867B9 2022-06-18 Outpatient [id number]- [id number]-1R 4A16 41FC-3 [facility] 07:44:31 6P65-4VNU 17-4EED-9D8 H61-0JCU- 9 l -8M77-T0T 1-G6GZ874F3 Y47-H4EO20 Tavo W504Y8T55 A09 2A0A09 2022-06-14 Outpatient [id number]- 5O4285F9-I6 4F66 73A9-D [facility] 22:44:21 O25Z-6O45 0A-9O56-048 90A-4A19- 9 l -9064-22B 4-32K212I5M 064-74N423 [place] 740H6R075 120 W3M971 2022-06-08 Outpatient [id number]- B3514LR7-H7 F051 4BD7-F [facility] 21:22:44 Q43J-9HM9 4B-2XB2-615 44B-4BC4- 8 l -819B-E8C B-O4N42612H 19B-E1U321 Tavo 17160RR86 C63 53AC63 2022-06-03 Outpatient DPTU11F9- NIFD30K5-11 ABCB 93A3-4 [facility] 01:33:52 4565-43DE 65-43DE-92E 565-43DE- 9 l -67S9-748 7-953RW39LS 7I3-063HY2 [place] VU51MR734 217 2BQ979 2022-05-30 Outpatient [id number]- 840CH610-2Q 114E F493-4 [facility] 20:55:52 2X47-689Y 39-438E-9B8 S92-166V- 9 l -5D55-3TJ 0-7SLD2Z2UZ T54-3XOR9F Tavo P4X2SCI22 F41 4BEF41 2022-05-20 Outpatient 3O48E84X- 1R79B83A-1B 5C46 A21D-1 [facility] 18:55:15 1FAA-4CF3 AA-2VK6-78P FAA-4CF3- 8 l -80ED-A77 D-D21Q87004 0ED-A77A25 Tavo [id number] 665 6252 481179 6006-09-27 Outpatient [id number]- [id number] 5C72 5329-4 [facility] 14:21:52 17Q3-5DIM F0-4CEA-948 3M4-2RXH- 9 l -9486-B77 6-K94WOV5F9 486-B77BBD Tavo WEF8Y38L6 4C4 1C14C4 2021-06-20 Outpatient 212OFQ10- 685ZHX28-63 596A BE16-8 [facility] 14:21:45 8434-49AE 34-49AE-95B 434-49AE- 9 l -95BD-57D D-61BO88F9Y 5BD-57DA06 Tavo S33X8J091 032 I8S458 2021-05-30 Outpatient [id number]- DZ480902-BQ CE68 9471-D [facility] 15:44:20 DAF5-4596 F5-4596-BFE AF5-4596- B l -BFE1-51A 1-23URB76DC FE1-51ACA1 Tavo JA90XX0QI 1BA 9CA1BA 2020-01-20 Inpatient [facility] [id number] [facility] 15:25:00 21 [facility] 2019-12-16 Inpatient [facility] [id number] [facility] 17:49:00 32 [facility] 2019-12-12 Inpatient [facility] [id number] [facility] 08:32:00 83 [facility] 2019-11-27 Inpatient [facility] [id number] [facility] 07:33:00 06 [facility] 2023-07-20 2023-07-20 Emergency [facility] [id number] Univers 00:34:00 03:25:00 JENI ibrahim [facility] 2023-07-20 2023-07-20 Emergency [facility] 1.2.840.114 10 [id number] Univers 00:34:00 03:25:00 Jen[facility]13.10 [facility] 4[facility]2.7.2.686 [facility] [id number] [address] 2022-06-18 2022-06-18 Emergency Rodolfo, 1.2.840.1 [id number] 2100 880022 Methodi 07:52:00 10:32:[address] [facility] 3.430.2.7 [facility] .3.521947 l .8 2022-05-30 2022-05-30 [facility] 1.2.186.709 4786 2067 Univers 21:02:00 21:53:00 Angie RUSSO 350.1.13.10 i ty of [place] 4.2.7.2.686 [facility] [id number] [address] 2022-05-30 2022-05-30 Emergency [facility] [id number] Univers 21:02:00 21:53:00 KONRADSHERRIE santinickie [facility] 2022-05-20 2022-05-20 Emergency Bárbara 1.2.840.1 [id number] Methodi 19:29:00 21:04:[address]255.1.[address] 3.430.2.7 Hospit a .3.713449 l .8 2022-05-20 2022-05-20 Travel 1.2.840.1 1.2.623.273 2764 068920 Methodi 00:00:00 00:00:[address] 3.430.2.7 0.2.7.3.698 spita .3.967763 084.8 l .8 2022-05-09 2022-05-09 Emergency [facility] [id number] Univers 21:45:00 21:46:00 CHER patrice [facility] 2022-05-09 2022-05-09 Emergency [facility] 1.2.840.114 95 [id number] Univers 21:45:00 21:46:00 Cher RUSSO 350.1.13.10 ity [facility] 4.2.7.2.686 [facility] [id number] [address] 2022-04-23 2022-04-23 Emergency X RIDDLE, [facility] ERT [id number] Univers 15:11:00 15:52:00 STEPHANLEIDA it y of [facility] 2022-04-23 2022-04-23 Emergency [place], [facility] 1.2.244.873 0611 2241 Univers 15:11:00 15:52:00 Bo RUSSO 350.1.13.10 ity coco [facility] 4.2.7.2.686 [facility] [id number] [place] [address] [place] 2021-09-14 2021-09-14 Outpatient [facility] [address] [place] 02:13:00 02:13[place] [id number] [facility] 2021-09-08 2021-09-08 Outpatient [facility]ER[facility]USON_JO [facility] 117 [address] [place] 02:19:00 02:19:[place] [id number] [facility] 2017-11-01 2017-11-01 Outpatient [facility] [id number] [facility] 10:47:00 10:47:00 [facility] 2017-10-25 2017-10-25 Outpatient [facility] [id number] [facility] 09:00:00 09:00:00 [facility] 2017-10-21 2017-10-21 [id number] 11:51:00 14:48:00 THORACIC [facility] 2017-10-21 2017-10-21 [id number] 11:51:00 14:48:00 THORACIC BETHANY CHANGDeclan [facility], [address], (LUF/[place] [address] 2017-10-08 2017-10-08 Outpatient Family Family [id number] eClinic 09:45:00 09:45:00 [facility] Clinic Results Test Description Test Time Test Comments Results Result Comments Source POCT GLUCOSE (AUTOMATED) 2023-07-20 08:11:02 Test Item Value Reference Range Interpretation Comme nts POCT GLU (test code = 7523536404) 192 mg/dL 70-110 H Lab Interpretation (test code = 37392-6) [facility]20 07:42:37 Test Item Value Reference Range Interpretation Comments POCT GLU (test code = 7387302080) 391 mg/dL 70-110 H Lab Interpretation (test code = Abnormal 80572-6) [facility] [id number] 06:59:13 Test Item Value Reference Range Interpretation Comments TROPONIN I (test code = 0.006 ng/mL <=0.034 9861250693) TONNY (test code = TONNY) Reference (Normal) Range (defined by the 99th percentile reference limit): <= 0.034 ng/mL Note: Cardiac troponin begins to rise 3-4 hours after the onset of ischemia. Repeat in 4-6 hours if the sample was drawn within 3-4 hours of the onset of the symptom and found normal. Diagnosis of myocardial injury is made with acute changes in cTn concentrations with at least one serial sample above the 99th percentile upper reference limit (URL), taken together with the patient's clinical presentation. Biotin has been reported to cause a negative bias, interpret results relative to patient's use of biotin. Lab Interpretation Normal (test code = 94677-0) [facility]. METABOLIC PANEL (66727)2023-07-20 06:53:36 Test Item Value Reference Range Interpretation Comments NA (test code = 130 mmol/L 135-145 L 7942807943) K (test code = 3.8 mmol/L 3.5-5.0 3100120257) CL (test code = 94 mmol/L 98-108 L 6974602816) CO2 TOTAL (test code = 25 mmol/L 23-31 2971106062) AGAP (test code = 11 2-16 8244271015) BUN (test code = 11 mg/dL 7-23 2709216797) GLUCOSE (test code = 544 mg/dL 70-110 HH 5824570691) CREATININE (test code = 0.61 mg/dL 0.60-1.25 3568609449) TOTAL BILI (test code = 1.7 mg/dL 0.1-1.1 H 0216319546) CALCIUM (test code = 9.0 mg/dL 8.6-10.6 4651357732) T PROTEIN (test code = 7.0 g/dL 6.3-8.2 0684790351) ALBUMIN (test code = 3.8 g/dL 3.5-5.0 1777064856) ALK PHOS (test code = 99 U/L 34-122 4692711276) ALTv (test code = 44 U/L 5-50 1742-6) AST(SGOT) (test code = 41 U/L 13-40 H 9070199529) eGFR (test code = 142.9 mL/min/1.73m2 7043843125) TONNY (test code = TONNY) Association of Glomerular Filtration Rate (GFR) and Staging of Kidney Disease* + --+ --+ ------+| GFR (mL/min/1.73 m2) ?| With Kidney Damage ?| ?Without Kidney Damage+ --------+ --------+ +| ?>90 ?| ?Stage one ?| ? Normal ?+ ---+ ---+ -------+| ?60-89 ?| ?Stage two ?| ? Decreased GFR ? + --+ --+ ------+| ?30-59 ?| ?Stage three ?| ? Stage three ? + --+ --+ ------+| ?15-29 ?| ?Stage four ? | ? Stage four ?+ ---+ ---+ -------+| ?<15 (or dialysis) ? ?| ?Stage five ? | ? Stage five ?+ ---+ ---+ -------+ *Each stage assumes the associated GFR level has been in effect for at least three months. ?Stages 1 to 5, with or without kidney disease, indicate chronic kidney disease. Notes: Determination of stages one and two (with eGFR >59mL/min/1.73 m2) requires estimation of kidney damage for at least three months as defined by structural or functional abnormalities of the kidney, manifested by either:Pathological abnormalities or Markers of kidney damage (including abnormalities in the composition of the blood or urine or abnormalities in imaging tests). Lab Interpretation Abnormal (test code = 39741-8) [facility] [id number] 06:50:54 Test Item Value Reference Range Interpretation Comments LIPASE (test code = 7049678935) 45 U/L 0-220 Lab Interpretation (test code = Normal 03683-1) [facility] WITH [id number] 06:32:35 Test Item Value Reference Range Interpretation Comments WBC (test code = 7.95 See_Comment [Automated 6690-2) message] The sy stem which generated this result transmitted reference range : 4.20 - 10.70 10*3/?L. The reference range was not used to interpret this result as normal/abnormal . RBC (test code = 4.34 See_Comment [Automated 789-8) message] The sy stem which generated this result transmitted reference range : 4.26 - 5.52 10*6/?L. The reference range was not used to interpret this result as normal/abnormal . HGB (test code = 13.5 g/dL 12.2-16.4 718-7) HCT (test code = 39.1 % 38.4-49.3 4544-3) MCV (test code = 90.1 fL 81.7-95.6 787-2) MCH (test code = 31.1 pg 26.1-32.7 785-6) MCHC (test code = 34.5 g/dL 31.2-35.0 786-4) RDW-SD (test code = 38.3 fL 38.5-51.6 L 95423-7) RDW-CV (test code = 11.7 % 12.1-15.4 L 788-0) PLT (test code = 171 See_Comment [Automated 777-3) message] The sy stem which generated this result transmitted reference range : 150 - 328 10*3/ ?L. The reference r eddy was not used to interpret this result as normal/abnormal . MPV (test code = 12.7 fL 9.8-13.0 13377-2) NRBC/100 WBC (test 0.0 See_Comment [Automat ed code = 2420331460) message] The system which generated this result transmitted reference range : 0.0 - 10.0 /100 WBCs. The refer ence range was not u sed to interpret th is result as normal/abnormal . NRBC x10^3 (test code See_Comment [Auto mated = 7979217332) message] The s ystem which generated this result transmitted reference range : 10*3/?L. The reference range was not used to interpret this result as normal/abnormal . GRAN MAT (NEUT) % 52.6 % (test code = 770-8) IMM GRAN % (test code 0.30 % = 6170168883) LYMPH % (test code = 36.2 % 736-9) MONO % (test code = 8.9 % 5905-5) EOS % (test code = 1.6 % 713-8) BASO % (test code = 0.4 % 706-2) GRAN MAT x10^3(ANC) 4.18 10*3/uL 1.99-6.95 (test code = 0757070759) IMM GRAN x10^3 (test 0.00-0.06 code = 2158443986) LYMPH x10^3 (test code 2.88 10*3/uL 1.09-3.23 = 731-0) MONO x10^3 (test code 0.71 10*3/uL 0.36-1.02 = 742-7) EOS x10^3 (test code = 0.13 10*3/uL 0.06-0.53 711-2) BASO x10^3 (test code 0.03 10*3/uL 0.01-0.09 = 704-7) Lab Interpretation Abnormal (test code = 21740-1) [facility] [id number] 00:34:00 Test Item Value Reference Range Interpretation Comments POC glucose (test code = 217 mg/dL 65-100 H Ope rator Name: Zach Lieberman7) BinosDevice ID: [id number] Lab Interpretation (test Abnormal code = 03311-7) [facility] [id number] 00:34:00 Test Item Value Reference Range Interpretation Comments POC glucose (test code = 217 mg/dL 65-100 H Ope rator Name: Zach Valdes-7) BinosDevice ID: [id number] Lab Interpretation (test Abnormal code = 42379-6) [facility] [id number] 00:34:00 Test Item Value Reference Range Interpretation Comments POC glucose (test code = 217 mg/dL 65-100 H Ope rator Name: Zach Valdes-7) BinosDevice ID: [id number] Lab Interpretation (test Abnormal code = 15261-5) [facility] [id number] 00:34:00 Test Item Value Reference Range Interpretation Comments POC glucose (test code = 217 mg/dL 65-100 H Ope rator Name: Zach Johnston) BinosDevice ID: [id number] Lab Interpretation (test Abnormal code = 53033-0) [facility]2022-08-28 00:34:00 Test Item Value Reference Range Interpretation Comments POC glucose (test code = 217 mg/dL 65-100 H Ope rator Name: Zach Lieberman7) BinosDevice ID: [id number] Lab Interpretation (test Abnormal code = 76161-5) [facility]2022-08-28 00:34:00 Test Item Value Reference Range Interpretation Comments POC glucose (test code = 217 mg/dL 65-100 H Ope rator Name: Zach Johnston) BinosDevice ID: [id number] Lab Interpretation (test Abnormal code = 33478-8) [facility]2022-08-28 00:34:00 Test Item Value Reference Range Interpretation Comments POC glucose (test code = 217 mg/dL 65-100 H Ope rator Name: Zach Johnston) BinosDevice ID: [id number] Lab Interpretation (test Abnormal code = 49382-7) [facility]2022-08-28 00:34:00 Test Item Value Reference Range Interpretation Comments POC glucose (test code = 217 mg/dL 65-100 H Ope rator Name: Zach Lieberman7) BinosDevice ID: [id number] Lab Interpretation (test Abnormal code = 28644-5) [facility]2022-08-28 00:34:00 Test Item Value Reference Range Interpretation Comments POC glucose (test code = 217 mg/dL 65-100 H Ope rator Name: Zach Lieberman7) BinosDevice ID: [id number] Lab Interpretation (test Abnormal code = 75976-9) [facility]2022-08-28 00:34:00 Test Item Value Reference Range Interpretation Comments POC glucose (test code = 217 mg/dL 65-100 H Ope rator Name: Zach Johnston) BinosDevice ID: [id number] Lab Interpretation (test Abnormal code = 66650-9) [facility] [id number] 00:34:00 Test Item Value Reference Range Interpretation Comments POC glucose (test code = 217 mg/dL 65-100 H Ope rator Name: Zach Johnston) BinosDevice ID: [id number] Lab Interpretation (test Abnormal code = 73783-0) [facility] [id number] 00:34:00 Test Item Value Reference Range Interpretation Comments POC glucose (test code = 217 mg/dL 65-100 H Ope rator Name: Zach Johnston) BinosDevice ID: [id number] Lab Interpretation (test Abnormal code = 45489-9) [facility] [id number] 00:34:00 Test Item Value Reference Range Interpretation Comments POC glucose (test code = 217 mg/dL 65-100 H Ope rator Name: Zach Johnston) BinosDevice ID: [id number] Lab Interpretation (test Abnormal code = 25687-3) [facility] [id number] 00:34:00 Test Item Value Reference Range Interpretation Comments POC glucose (test code = 217 mg/dL 65-100 H Ope rator Name: Zach Johnston) BinosDevice ID: [id number] Lab Interpretation (test Abnormal code = 53816-9) [facility]- [place] HEAD/BRAIN W/O [id number] 18:19:00 Patient Name: VIMAL ALAMO Unit No: [id number] EXAMS: CPT CODE: [id number] CT HEAD/BRAIN W/O CONT 56683 CLINICAL INFORMATION: Moderate frontal headaches. Coughing. Dictation [...] 12/16/2019 (1818) KirtAGV LORETA Lopez NAME: VIMAL ALAMO [address] [place] [address] PHYS: KELLY Vargas ToroGermania JENARO [place] [address] : 1975 AGE:44 SEX: M LOC: Dayron.[facility]iae PHONE #: [phone] EXAM DATE: 12/16/2019 STATUS: PRE ER FAX #: [phone] RAD #: D/C DT PAGE 1 Signed Report Patient Name: VIMAL ALAMO Unit No: [id number] EXAMS: CPT CODE: [id number] CT HEAD/BRAIN W/O CONT 14289 (Continued) Orig Print D/T: S: 12/16/2019(1821) LORETA Lopez NAME: CALLY[address] PHYS: KELLY Vargas EngelMyronGermania JENARO [place] [address] : 1975 AGE: 44 SEX: M LOC: B.ERS PHONE #: [phone] EXAM DATE: 12/16/2019 STATUS: PRE ER FAX #: [phone] RAD #: D/C DT PAGE 2 Signed Report- XR CHEST 2 [id number] 09:11:00 FAX: Germania Engel NP [phone] [place]: E St: REG Patient Name: VIMAL ALAMO Unit No: [id number] EXAMS: CPT CODE: [id number] XR CHEST 2 V 47011 - XR CHEST 2 V LOCATION: T18 [...] S: 12/12/2019 (913) LORETA Lopez NAME: VIMAL ALAMO [address] [place] [address] PHYS: Germania Isaacs NP [place], [place] [address] : 1975 AGE: 44 SEX: M LOC: EMILY PHONE #: [phone] EXAM DATE: 12/12/2019 STATUS: REG ER FAX #: [phone] RAD NO: DC Dt: PAGE 1 Signed ReportSPINE LUMBAR [id number] 13:37:00[place] [id number] IMAGING REPORTPatient Name: Gustavo ALAMOte of Service: [id number]: 41 Sex: M Order #: [id number] Room: CCSDOB: 1975 X-Ray Number: [id number] Record Number: [id number] Hospital Number: [id number] Physician: Agatha CROW Physician: RUBY TREVIÑO LUMBAR [...] 1:34 PMLegally authenticated by EARLINE ANAYA 2017-04-08 13:34:45"
[2023-07-21 23:55] LABS: Absolute Lymphocytes (CBC) 2.2 K/uL (0.7-4.9); Hematocrit 39.6 % (39.6-49.0); Lymphocytes % 33.2 % (15.3-44.8); MPV 10.4 fL (7.6-11.3); Platelets 162 thou/uL (152-406)
[2023-07-21] MEDS ORDERED: ASPIRIN 81 MG CHEWABLE TABLET ONE (23:57)
[2023-07-22] MEDS ORDERED: KETOROLAC 30 MG/ML INJ ONE
[2023-07-22 00:23] LABS: Magnesium 2.1 mg/dL (1.6-2.4); Potassium 4.1 mEq/L (3.5-5.1); Troponin High Sensitivity 7.8 pg/mL (<58.9)
[2023-07-22] MEDS ORDERED: INSULIN REGULAR (HUMAN) 100 UNIT/ML ONE (01:16)
[2023-07-22] MEDS ORDERED: METFORMIN HCL 500 MG TAB ONE (01:16)
[2023-07-22] MEDS ORDERED: NA CHLORIDE 0.9% 1,000 ML ONE (01:17)
--- NOTE | 2023-07-22 02:24 | EDPHYS ---
Physician Documentation [facility] Name: Ruben Alamo Age: 47 yrs Sex: Male : 1975 Arrival Date: 07/21/2023 Time: 22:04 Bed 8 Private MD: ED Physician William Alegre HPI: 07/21 23:05 This 47 yrs old Black Male presents to ER via Ambulatory with complaints of Shoulder cp Pain. 23:05 The patient or guardian complains of pain. left upper arm. cp 23:05 Context: resulted from an unknown reason, The patient reports no decreased range of cp motion. The patient reports no obvious deformity. 23:05 Onset: The symptoms/episode began/occurred for weeks. cp 23:05 Associated signs and symptoms: Pertinent negatives: chest pain, neck pain, Numbness in cp left hand and left arm Weakness in left hand and left arm. Severity of symptoms: in the emergency department the symptoms are unchanged, despite home interventions. Historical: - Allergies: 22:35 Iodine; iw 22:35 PENICILLINS; iw 22:35 SHELLFISH; iw - PMHx: 22:35 Chronic pain; headache; Hypertensive disorder; iw - PSHx: 22:35 facial reconstruction; Spinal surgery; iw - Immunization history:: Adult Immunizations up to date. - Social history:: Smoking status: . ROS: 23:10 Constitutional: Negative for body aches, chills, fever, poor PO intake, cp 23:10 Eyes: Negative for injury, pain, redness, and discharge, cp 23:10 Neck: Negative for pain with movement, pain at rest, stiffness, 23:10 Cardiovascular: Negative for edema, palpitations, 23:10 Respiratory: Negative for cough, shortness of breath, wheezing, 23:10 Abdomen/GI: Negative for abdominal pain, vomiting, diarrhea, constipation, 23:10 MS/extremity: Positive for pain, swelling, tenderness, of the left upper arm, Negative for injury or acute deformity, decreased range of motion, paresthesias, 23:10 Neuro: Negative for altered mental status, dizziness, headache, numbness, syncope, weakness, 23:10 All other systems are negative, Exam: 23:15 Constitutional: The patient appears in no acute distress, alert, awake, cp non-diaphoretic, non-toxic, well developed, well nourished, obese, 23:15 Head/Face: Normocephalic, atraumatic. cp 23:15 Eyes: Periorbital structures: appear normal, Conjunctiva: normal, no exudate, no injection, Sclera: no appreciated abnormality, Lids and lashes: appear normal, bilaterally, 23:15 ENT: External ear(s): are unremarkable, Nose: is normal, Mouth: Lips: moist, Oral mucosa: pink and intact, moist, Posterior pharynx: is normal, airway is patent, no erythema, no exudate, 23:15 Neck: C-spine: appears grossly normal, no vertebral tenderness, no crepitus, ROM/movement: is normal, is supple, without pain, no range of motions limitations, 23:15 Chest/axilla: Inspection: normal, Palpation: is normal, no crepitus, no tenderness, 23:15 Cardiovascular: Rate: normal, Rhythm: regular, Edema: is not appreciated, JVD: is not appreciated, 23:15 Respiratory: the patient does not display signs of respiratory distress, Respirations: normal, no use of accessory muscles, no retractions, labored breathing, is not present, Breath sounds: are clear throughout, no decreased breath sounds, no stridor, no wheezing, 23:15 Abdomen/GI: Exam negative for discomfort, distension, guarding, Inspection: abdomen appears normal, 23:15 Back: pain, is absent, ROM is normal, vertebral tenderness, is not appreciated, 23:15 Skin: cellulitis, is not appreciated, no rash present. 23:15 Neuro: Orientation: to person, place \T\ time. Mentation: is normal, Motor: moves all fours, strength is normal, Sensation: is normal, 23:37 ECG was reviewed by the Attending Physician. cp Vital Signs: 22:34 BP 135 / 78; Pulse 74; Resp 16; Temp 97.4; Pulse Ox 95% on R/A; iw 23:45 BP 128 / 75; Pulse 62; Resp 16 S; Pulse Ox 95% on R/A; km8 10/29 00:00 BP 131 / 70; Pulse 64; Resp 18; Pulse Ox 94% on R/A; km8 00:30 BP 129 / 72; Pulse 65; Resp 16; Pulse Ox 97% on R/A; km8 01:56 BP 125 / 63; Pulse 58; Resp 17 S; Pulse Ox 97% on R/A; lg3 MDM: 07/21 22:56 Patient medically screened. 07/22 00:00 Differential diagnosis: tendonitis, bursitis, acute MT. 02:22 Data reviewed: vital signs, nurses notes, lab test result(s), EKG, radiologic studies, cp plain films, ultrasound. 02:22 I considered the following discharge prescriptions or medication management in the emergency department Medications were administered in the Emergency Department. See MAR. Care significantly affected by the following chronic conditions: Hypertension. Counseling: I had a detailed discussion with the patient and/or guardian regarding the historical points, exam findings, and any diagnostic results supporting the discharge/admit diagnosis, lab results, radiology results, the need for outpatient follow up, a family practitioner, to return to the emergency department if symptoms worsen or persist or if there are any questions or concerns that arise at home. Response to treatment: the patient's symptoms have markedly improved after treatment, and as a result, I will discharge patient. 07/21 23:00 Order name: Basic Metabolic Panel; Complete Time: 00: 07/22 02:18 Interpretation: Normal except: NA 133; GLUC 476. 07/21 23:00 Order name: CBC with Diff; Complete Time: 00: 07/22 02:22 Interpretation: Reviewed. 07/21 23:00 Order name: Magnesium; Complete Time: 00: 07/21 23:00 Order name: Troponin HS; Complete Time: 00: 07/22 02:19 Interpretation: Reviewed. 07/22 02:33 Order name: Glucose, Ancillary Testing [facility] 07/21 23:00 Order name: XRAY Chest (1 view) 07/22 02:22 Order name: UPPER EXTREMITY VENOUS UNILATE [facility] 07/21 23:00 Order name: EKG; Complete Time: 23:01 07/21 23:00 Order name: Cardiac monitoring; Complete Time: 23:26 07/21 23:00 Order name: EKG - Nurse/Tech; Complete Time: 23:25 07/21 23:00 Order name: IV Saline Lock; Complete Time: 23:45 07/21 23:00 Order name: Labs collected and sent; Complete Time: 23:45 07/21 23:00 Order name: O2 Per Protocol; Complete Time: 23:25 cp 07/21 23:00 Order name: O2 Sat Monitoring; Complete Time: 23:25 cp 07/22 02:05 Order name: Accucheck Blood Glucose; Complete Time: 02:22 cp EC/28 23:37 Rate is 62 beats/min. Rhythm is regular. UT interval is normal. QRS interval is normal. cp QT interval is normal. T waves are Inverted in lead aVR. Interpreted by me. Reviewed by me. Administered Medications: 23:45 Drug: Aspirin PO Chewable Tablet 324 mg PO once; 81 mg tablets x 4 Route: PO; lg3 07/22 00:57 Follow up: Response: No adverse reaction [facility] 07/21 23:48 Drug: Ketorolac IVP 15 mg IVP once Route: IVP; Site: right antecubital; km8 07/22 00:57 Follow up: Response: No adverse reaction; Pain is decreased [facility] 01:24 Drug: NS 0.9% IV 1000 ml IV at 1 bolus Per protocol; 1000 mL bolus Route: IV; Rate: 1 lg3 bolus; Site: right antecubital; 02:40 Follow up: Response: No adverse reaction; IV Status: Completed infusion; IV Intake: lg3 1000ml 01:24 Drug: metFORMIN PO 500 mg PO once; with meal or snack Route: PO; lg3 02:22 Follow up: Response: No adverse reaction; Blood sugar is lowered [facility] 01:25 Drug: Insulin Regular Human Sub-Q 10 units Sub-Q once {Co-Signature: lg3 (Suzy Zimmerman km8 RN).} Route: Sub-Q; Site: abdomen; 02:22 Follow up: Response: No adverse reaction; Blood sugar is lowered [facility] Disposition: 05:19 Co-signature as Attending Physician, William Alegre MD I reviewed the patient's care rt provided by the Advanced Practice Provider and agree with the diagnosis and treatment plan. Disposition Summary: 07/22/23 02:23 Discharge Ordered Notes: Location: Home cp Problem: new cp Symptoms: have improved cp Condition: Stable cp Diagnosis - Diabetes mellitus due to underlying condition with hyperglycemia cp - Pain in left upper arm cp Followup: cp - With: Private Physician - When: 2 - 3 days - Reason: Recheck today's complaints Discharge Instructions: - Discharge Summary Sheet cp - Type 2 Diabetes Mellitus, Diagnosis, Adult cp - Hyperglycemia cp - Musculoskeletal Pain cp - Daily Diabetes Mellitus Record cp - Blood Glucose Monitoring, Adult cp - Diabetes Mellitus and Nutrition, Adult cp Forms: - Medication Reconciliation Form cp - Thank You Letter cp - Antibiotic Education cp - Prescription Opioid Use cp - Patient Portal Instructions cp - Leadership Thank You Letter cp Prescriptions: - Naprosyn 500 mg Oral Tablet - take 1 tablet ORAL route 2 times per day take with food; 30 tablet; Refills: 0, cp Product Selection Permitted - Metformin 1,000 mg Oral tablet - take 0.5 tablet ORAL route every 12 hours with morning and evening meals; 20 cp tablet; Refills: 0, Product Selection Permitted Signatures: Dispatcher [employer] EDNitza Pond RN RN iw Mynor Peña, LYNNE PA cp Suzy Zimmerman, ANAHI RN lg3 William Alegre MD MD rt Lisa Ferguson RN RN km8 Suzy Zimmerman RN lg3 Corrections: (The following items were deleted from the chart) 02:22 07/21 23:01 Extremity Venous [employer]+[email or web address].RAD.BRZ ordered. EDMD EDMS
--- NOTE | 2023-07-22 02:24 | ER ---
Nurse's Notes [facility] Name: Ruben Alamo Age: 47 yrs Sex: Male : 1975 Arrival Date: 07/21/2023 Time: 22:04 Bed 8 Private MD: Diagnosis: Diabetes mellitus due to underlying condition with hyperglycemia;Pain in left upper arm Presentation: 07/21 22:34 Chief complaint: Patient states: left shoulder pain radiates down his arm, last time he iw got a shot and it helped for a little bit. Coronavirus screen: At this time, the client does not indicate any symptoms associated with coronavirus-19. Ebola Screen: Patient negative for fever greater than or equal to 101.5 degrees Fahrenheit, and additional compatible Ebola Virus Disease symptoms Patient denies exposure to infectious person. Patient denies travel to an Ebola-affected area in the 21 days before illness onset. No symptoms or risks identified at this time. Initial Sepsis Screen: Does the patient meet any 2 criteria? No. Patient's initial sepsis screen is negative. Does the patient have a suspected source of infection? No. Patient's initial sepsis screen is negative. Risk Assessment: Do you want to hurt yourself or someone else? Patient reports no desire to harm self or others. Onset of symptoms was June 2023. 22:34 Method Of Arrival: Ambulatory iw 22:34 Acuity: LIZBETH 4 iw 23:01 Acuity: LIZBETH 3 iw Historical: - Allergies: 22:35 Iodine; iw 22:35 PENICILLINS; iw 22:35 SHELLFISH; iw - PMHx: 22:35 Chronic pain; headache; Hypertensive disorder; iw - PSHx: 22:35 facial reconstruction; Spinal surgery; iw - Immunization history:: Adult Immunizations up to date. - Social history:: Smoking status: . Screenin:25 [facility] ED Fall Risk Assessment (Adult) History of falling in the last 3 months, km8 including since admission No falls in past 3 months (0 pts) Confusion or Disorientation No (0 pts) Intoxicated or Sedated No (0 pts) Impaired Gait No (0 pts) Mobility Assist Device Used No (0 pt) Altered Elimination No (0 pt) Score/Fall Risk Level 0 - 2 = Low Risk Oriented to surroundings, Maintained a safe environment, Educated pt \T\ family on fall prevention, incl call for assistance when getting out of bed, Assessed \T\ reinforced patient's understanding of fall precautions. Abuse screen: Denies threats or abuse. Denies injuries from another. Nutritional screening: No deficits noted. Tuberculosis screening: No symptoms or risk factors identified. Assessment: 23:25 General: Appears in no apparent distress. comfortable, Behavior is calm, cooperative, km8 appropriate for age. Pain: Complains of pain in left arm Pain currently is 7 out of 10 on a pain scale. Quality of pain is described as burning, Pain began 1 week ago. Neuro: Arnold Agitation-Sedation Scale (RASS): 0 - Alert and Calm Level of Consciousness is awake, alert, obeys commands, Oriented to person, place, time, situation. Cardiovascular: Denies chest pain, Capillary refill < 3 seconds Patient's skin is warm and dry. Respiratory: Airway is patent Respiratory effort is even, unlabored, Respiratory pattern is regular, symmetrical, Denies shortness of breath. GI: No deficits noted. No signs and/or symptoms were reported involving the gastrointestinal system. : No deficits noted. No signs and/or symptoms were reported regarding the genitourinary system. EENT: No deficits noted. No signs and/or symptoms were reported regarding the EENT system. Derm: No deficits noted. No signs and/or symptoms reported regarding the dermatologic system. Skin is intact, is healthy with good turgor, Skin is dry, Skin is normal, Skin temperature is warm. Musculoskeletal: Range of motion: intact in all extremities, pt reports burning sensation to left arm. 07/22 00:59 Reassessment: Patient appears in no apparent distress at this time. No changes from km8 previously documented assessment. Patient and/or family updated on plan of care and expected duration. Pain level reassessed. Patient is alert, oriented x 3, equal unlabored respirations, skin warm/dry/pink. 01:56 Reassessment: Patient appears in no apparent distress at this time. No changes from lg3 previously documented assessment. Patient and/or family updated on plan of care and expected duration. Pain level reassessed. Patient is alert, oriented x 3, equal unlabored respirations, skin warm/dry/pink. Patient states feeling better. 02:39 Reassessment: Patient appears in no apparent distress at this time. No changes from lg3 previously documented assessment. Patient and/or family updated on plan of care and expected duration. Pain level reassessed. Patient is alert, oriented x 3, equal unlabored respirations, skin warm/dry/pink. Patient states feeling better. Patient states symptoms have improved. Vital Signs: 07/21 22:34 BP 135 / 78; Pulse 74; Resp 16; Temp 97.4; Pulse Ox 95% on R/A; iw 23:45 BP 128 / 75; Pulse 62; Resp 16 S; Pulse Ox 95% on R/A; km8 07/22 00:00 BP 131 / 70; Pulse 64; Resp 18; Pulse Ox 94% on R/A; km8 00:30 BP 129 / 72; Pulse 65; Resp 16; Pulse Ox 97% on R/A; km8 01:56 BP 125 / 63; Pulse 58; Resp 17 S; Pulse Ox 97% on R/A; lg3 ED Course: 07/21 22:06 Patient arrived in ED. gm2 22:35 Triage completed. iw 22:36 Arm band placed on. iw 22:56 Mynor Peña PA is PHCP. cp 22:56 William Alegre MD is Attending Physician. cp 23:25 Client placed on continuous cardiac and pulse oximetry monitoring. NIBP monitoring km8 applied. special delivery mail carrier on. 23:25 Patient has correct armband on for positive identification. Placed in gown. Bed in low km8 position. Call light in reach. Side rails up X2. Door closed. Noise minimized. Warm blanket given. Pillow given. 23:25 Inserted saline lock: 22 gauge in right antecubital area, using aseptic technique. km8 Blood collected. Patient maintains SpO2 saturation greater than 95% on room air. 23:26 Lisa Ferguson, RN is Primary Nurse. km8 23:29 XRAY Chest (1 view) In Process Unspecified. EDMS 23:45 Basic Metabolic Panel Sent. lg3 23:45 CBC with Diff Sent. lg3 23:45 Magnesium Sent. lg3 23:45 Troponin HS Sent. lg3 07/22 02:22 UPPER EXTREMITY VENOUS UNILATE In Process Unspecified. EDMS 02:40 No provider procedures requiring assistance completed. IV discontinued, intact, lg3 bleeding controlled, No redness/swelling at site. Pressure dressing applied. Administered Medications: 07/21 23:45 Drug: Aspirin PO Chewable Tablet 324 mg PO once; 81 mg tablets x 4 Route: PO; lg3 07/22 00:57 Follow up: Response: No adverse reaction 8 07/21 23:48 Drug: Ketorolac IVP 15 mg IVP once Route: IVP; Site: right antecubital; km8 07/22 00:57 Follow up: Response: No adverse reaction; Pain is decreased 01:24 Drug: NS 0.9% IV 1000 ml IV at 1 bolus Per protocol; 1000 mL bolus Route: IV; Rate: 1 lg3 bolus; Site: right antecubital; 02:40 Follow up: Response: No adverse reaction; IV Status: Completed infusion; IV Intake: lg3 1000ml 01:24 Drug: metFORMIN PO 500 mg PO once; with meal or snack Route: PO; lg3 02:22 Follow up: Response: No adverse reaction; Blood sugar is lowered 01:25 Drug: Insulin Regular Human Sub-Q 10 units Sub-Q once {Co-Signature: lg3 (Suzy Zimmerman km8 RN).} Route: Sub-Q; Site: abdomen; 02:22 Follow up: Response: No adverse reaction; Blood sugar is lowered Medication: 02:41 VIS not applicable for this client. lg3 Intake: 02:40 IV: 1000ml; Total: 1000ml. lg3 Outcome: 02:23 Discharge ordered by . cp 02:40 Discharged to home ambulatory, lg3 02:40 Condition: stable 02:40 Discharge instructions given to patient, Instructed on discharge instructions, follow up and referral plans. medication usage, Demonstrated understanding of instructions, follow-up care, medications, Prescriptions given X 2, 02:41 Patient left the ED. lg3 Signatures: Dispatcher [employer] Nitza Piña RN Mynor Torrez PA PA cp Gibson, Lacie, RN RN lg3 Flora Soriano [employer] Lisa Ferguson RN RN km8 Suzy Zimmerman RN lg3 Corrections: (The following items were deleted from the chart) 02: 02:17 In radiology for Extremity Venous [email or web address]. SERENITY[facility] EDMS
[2023-07-22 02:49] VITALS: TEMP 97.4
[2023-07-22 02:53] VITALS: O2SAT 97
[2023-07-22 02:54] VITALS: BP 125/63
--- NOTE | 2023-07-23 13:59 | RAD REPORT ---
EXAM DESCRIPTION: US - UPPER EXTREMITY VENOUS UNILATE - 07/22/2023 2:20 am CLINICAL HISTORY: Pain;Swelling COMPARISON: None. TECHNIQUE: Grayscale, color Doppler, and spectral Doppler imaging of the left upper extremity venous system. FINDINGS: Normal compressibility and/or flow identified in the left internal jugular, subclavian, ax illary, brachial, basilic, and radial veins. No echogenic thrombus identified. No soft tissue abnorma lities. IMPRESSION: No evidence of left upper extremity DVT. Electronically signed by: Jose A Lewis 07/22/2023 3:10 AM CDT Due to temporary technical issues with the PACS/Fluency reporting system, reports are being signed by the in house radiologists without review as a courtesy to insure prompt reporting. The interpreting radiologist is fully responsible for the content of the report.
--- NOTE | 2023-07-23 15:57 | RAD REPORT ---
EXAM DESCRIPTION: RAD - Chest Single View - 07/21/2023 11:28 pm CLINICAL HISTORY: 47 years Male CHEST PAIN COMPARISON: Chest x-ray 11/12/2022 FINDINGS: Lung volumes adequate. Cardiac silhouette is normal in size. No pneumothorax. No large pleural effusion. No focal consolidation. No acute bony finding. Partially visualized cervical spine fusion hardware. IMPRESSION: No acute cardiopulmonary findings. Electronically signed by: Janet Hendrickson MD 07/21/2023 11:39 PM CDT Due to temporary technical issues with the PACS/Fluency reporting system, reports are being signed by the in house radiologists without review as a courtesy to insure prompt reporting. The interpreting radiologist is fully responsible for the content of the report.
--- NOTE | 2023-07-24 07:56 | EKG ---
Test Date: 2023-07-21 Test Time: 23:31:41 Flight Agent: DOMENICO MEASUREMENT RESULTS: Intervals: Rate: 62 [place]: 186 QRSD: 100 QT: 392 QTc: 397 [place]: P: 33 [place]: 186 QRS: 46 T: 38 INTERPRETIVE STATEMENTS: Normal sinus rhythm Normal ECG Compared to ECG 02/13/2023 07:38:47 Sinus bradycardia no longer present First degree AV block no longer present Electronically Signed On 07-24-23 07:52:12 CDT by Kong Albright
== END 2023-07-22 02:41 | disposition home or self-care (01) ==
LOC: ER 22:04
DX: E11.65 Type 2 diabetes mellitus with hyperglycemia (principal); M79.622 Pain in left upper arm; I10 Essential (primary) hypertension; Z88.0 Allergy status to penicillin; Z91.013 Allergy to seafood; Z91.048 Other nonmedicinal substance allergy status
CPT/HCPCS: 96361; 93005; 85025; 80048; 36415; 83735; 82947; 84484; 71045; 93971; 96372; 96374; 99285; J1815; J7030

== ENCOUNTER 2023-07-26 07:36 | Emergency (ER) | payer BC ==
[2023-07-26] MEDS ORDERED: CYCLOBENZAPRINE 10 MG TAB ONE (08:29)
[2023-07-26] MEDS ORDERED: KETOROLAC 30 MG/ML INJ ONE (08:30)
--- NOTE | 2023-07-26 08:59 | RAD REPORT ---
EXAM DESCRIPTION: RAD - Shoulder Left 2 View - 07/26/2023 8:52 am CLINICAL HISTORY: PAIN COMPARISON: <Comparisons> FINDINGS: Slight lucency is seen in the distal left clavicle which could be easily minimal nondispla yoanna fracture. No dislocation.
--- NOTE | 2023-07-26 09:00 | RAD REPORT ---
EXAM DESCRIPTION: RAD - Clavicle Left - 07/26/2023 8:52 am CLINICAL HISTORY: Pain;Radiculopathy COMPARISON: No comparisons FINDINGS: Mild degenerative changes are present. Subtle lucency is seen in the distal left clavicle which is equivocal for a nondisplaced fracture. Correlation with point tenderness is advised.
--- OUTSIDE RECORDS SUMMARY | 2023-07-26 09:02 | XMS REPORT | Continuity of Care Document ---
:1975 Author Organization [facility] Address [address] [place] [address] Care Team Providers Name Role Phone JESUS ALBERTO SERRA Primary Care Physician Unavailable JENI ROJAS Attending Clinician Unavailable Jeni Veronica Attending Clinician Arjun Reynolds MD Attending Clinician [phone] ALBIN ROSAS Attending Clinician Unavailable Albin Purvis Attending Clinician Kaycee Butt MD Attending Clinician CHER JIMÉNEZ Attending Clinician Unavailable Cher Jiménez DO Attending Clinician BO JONES Attending Clinician Unavailable Bo Hennessy Attending Clinician ELIJAH Attending Clinician Unavailable BETHANY JORDAN Attending Clinician Unavailable Physician, No Primary or Family Admitting Clinician Unavaila JENI Gonzalez Admitting Clinician Unavailable ELIJAH Admitting Clinician Unavailable Payers Payer Name Policy Type Policy Number Effective Date Expiration Date S leonie HIM BCBS BLUE [id number] 2023 ADVANTAGE HMO 00:00:00 Problems Condition Condition [...] elkin chronic chronic 03:47:18 l pain pain Egnar Active Problem 11/07/2017 Family Diagnostic No known No known Disease Unive rs active active ity of problems problems [facility] Allergies, Adverse Reactions, Alerts Allergy Allergy Status [...] ity of DERIVED 00:00: [place] [facility] Shellfijose Propensi Active Unknown - Uni vers h ty to See comments 16 ity of Derived adverse 00:00: [place] reaction 00 Medical s Branch No Known DA Active U [facility] Allergie 3- [place] [facility] 00:00: Regiona 00 [facility] No Known DA Active U 0 [facility] Allergie 3-05 [place] 00:00: Region [facility] N.K.D.A. N.K.D.A. Active Info Not Enrique elkin Available 10-25 l 00:00: Tavo 00 NO KNOWN Drug Active Univers ALLERGIE Class ity of S [facility] Social History Social Habit Start Date Stop Date Quantity Comments Source Gender identity [facility] Tobacco use and 2022-06-18 2022-06-18 Smokeless [facility] 00:00:00 00:00:00 tobacco non-user Hospital History of Social 2022-06-18 2022-06-[address] function 00:00:00 00:00:00 Hospital Exposure to 2022-05-20 2022-05-30 Not sure University of SARS-CoV-2 (event) 00:00:00 20:57:00 [facility] Sex Assigned At [birth year] [facility] 00:00:00 [facility]:00 Hospital Smoking Status Start Date Stop Date Source Tobacco smoking consumption [facility] Never smoked tobacco [facility] Medications Ordered Filled Start Stop Current Ordering Indication Dosage Frequency Signature Comments Components Source Medication Medication Date Date Medication? Clinician (SIG) Name Name insulin 2022-09- No 10U 10 Units, Univ ers regular 0-27 10-27 IV Push, ity of human 08:15: 07:39 ONCE, 1 [place] (HUMULIN R) 00 :00 dose, On Medi shannan injection Fri Branch 10 Units 07/20/23 at 0315, Routine
Indicatio n for insulin: Hyperglyce ashleigh NaCl 0.9% 2022-09- No 1000mL at 999 Uni vers (NS) bolus 0-27 10-27 mL/hr, ity of infusion 08:15: 08:17 1,000 mL, Tavares as 1,000 mL 00 :00 IV Medical Infusion, Branch ONCE, 1 dose, On 07/20/23 at 0315, CHRISTINA HYDROcodone 2022-09- No 1{tbl} 1 tablet, Univers -acetaminop 0- 10-27 Oral, ity of hen (NORCO 07:00: 06:32 [...] 7 days. lidocaine 2021-0 2021- No 4mL Q.[id number] Apply 4 mL Methodi HCL 06-[id number] (lidocaine) 00:00: 04:59 3D 3 (three) Hospita 2 % 00 :00 times a l solution day for 3 days. Apply to cottonball and place it by toothache lidocaine 2021-0 2022- No 4mL Q.[id number] Apply 4 mL Methodi HCL 06-18- [id number] topically st (lidocaine) 00:00: 04:59 3D 3 (three) Hospita 2 % 00 :00 times a l solution day for 3 days. Apply to cottonball and place it by toothache lidocaine 2021-0 2022- No 4mL Q.[id number] Apply 4 mL Methodi HCL 06-[id number] (lidocaine) 00:00: 04:59 3D 3 (three) Hospita 2 % 00 :00 times a l solution day for 3 days. Apply to cottonball and place it by toothache lidocaine 2021-0 2022- No 4mL Q.[id number] Apply 4 mL Methodi HCL 9-25 -[id number] (lidocaine) 00:00: 04:59 3D 3 (three) Hospita 2 % 00 :00 times a l solution day for 3 days. Apply to cottonball and place it by toothache lidocaine 2021-0 2022- No 4mL Q.[id number] Apply 4 mL Methodi HCL 9-25 -[id number] (lidocaine) 00:00: 04:59 3D 3 (three) Hospita 2 % 00 :00 times a l solution day for 3 days. Apply to cottonball and place it by toothache lidocaine 2021-0 2022- No 4mL Q.[id number] Apply 4 mL Methodi HCL 9-25 -[id number] (lidocaine) 00:00: 04:59 3D 3 (three) Hospita 2 % 00 :00 times a l solution day for 3 days. Apply to cottonball and place it by toothache lidocaine 2021-0 2022- No 4mL Q.[id number] Apply 4 mL Methodi HCL 9-25 -[id number] (lidocaine) 00:00: 04:59 3D 3 (three) Hospita 2 % 00 :00 times a l solution day for 3 days. Apply to cottonball and place it by toothache lidocaine 2021-0 2022- No 4mL Q.[id number] Apply 4 mL Methodi HCL 9-25 -[id number] (lidocaine) 00:00: 04:59 3D 3 (three) Hospita 2 % 00 :00 times a l solution day for 3 days. Apply to cottonball and place it by toothache lidocaine 2021-0 2022- No 4mL Q.[id number] Apply 4 mL Methodi HCL 9-25 -[id number] (lidocaine) 00:00: 04:59 3D 3 (three) Hospita 2 % 00 :00 times a l solution day for 3 days. Apply to cottonball and place it by toothache lidocaine 2021- No 4mL Q.[id number] Apply 4 mL Methodi HCL 06-[id number] (lidocaine) 00:00: 04:59 3D 3 (three) Hospita 2 % 00 :00 times a l solution day for 3 days. Apply to cottonball and place it by toothache lidocaine 2021- No 4mL Q.[id number] Apply 4 mL Methodi HCL 06-[id number] (lidocaine) 00:00: 04:59 3D 3 (three) Hospita 2 % 00 :00 times a l solution day for 3 days. Apply to cottonball and place it by toothache lidocaine 2021- No 4mL Q.[id number] Apply 4 mL Methodi HCL 06-[id number] (lidocaine) 00:00: 04:59 3D 3 [...] 1 at 2130, tablet CHRISTINA butalbital- Yes [id number] 1{tbl} Take 1 Univers acetaminoph 9-06 tablet by ity of en-caff 00:00: mouth [place] 50-325-40 00 every 6 Medical mg tablet (six) Branch hours as needed for Pain (scale 4-6) or Pain (scale 7-10). butalbital- Yes [id number] 1{tbl} Take 1 Univers acetaminoph 9-06 tablet by ity of en-caff 00:00: mouth [place] 50-325-40 00 every 6 Medical mg tablet (six) Branch hours as needed for Pain (scale 4-6) or Pain (scale 7-10). ondansetron 2022-0 2022- No 4mg Q8H Take [...] 30 days. LISINOPRIL 2022-0 Yes Take by [facility] ORAL 8-16 mouth. ity of 21:45: [address] Branch HYDROcodone 2022-0 Yes 1{tbl} Take 1 Un butch -acetaminop 8-16 tablet by ity of hen (NORCO) 21:45: mouth [place] 10-325 mg 20 every 6 Medical tablet (six) Branch hours as needed. LISINOPRIL 2022-0 Yes Take by [facility] ORAL 8-16 mouth. ity of 21:45: [address] HYDROcodone 2022-0 Yes 1{tbl} Take 1 Un butch -acetaminop 8-16 tablet by ity of hen (NORCO) 21:45: mouth [place] 10-325 mg 20 every 6 Medical tablet (six) Branch hours as needed. LISINOPRIL 2022-0 Yes Take by [facility] ers ORAL 8-16 mouth. ity of 21:45: [address] HYDROcodone 2022-0 Yes 1{tbl} Take 1 [...] Irfan as needed l 03:47: Tavo Hydrocodone 2018-0 Yes Toussaint [...] 1 tablet Memoria 2-14 Irfan l 03:47: Egnar 13 Hydrocodone 2018-0 Yes Toussaint 1 tablet Memoria -Acetaminop 2-14 Irfan as needed l hen 03:47: Carisoprodo 2018-0 Yes [facility]aint 1 tablet Memoria l 2-14 Irfan as needed l 03:47: Acetaminoph 2018-0 Yes Toussaint 1 [...] Lukes 00:00: Memoria 00 l (LUF/LI V/SA) Maury 2018-0 Yes Toussaint 1 tablet Enrique elkin 1-15 Irfan as needed l 00:00: Soma 2018-0 Yes Toussaint 1 tablet Memor ia 1-15 Irfan as needed l 00:00: Meloxicam 2018-0 Yes Toussaint 1 tablet Memoria 1-15 Irfan l 00:00: Maury 2018-0 Yes [place]aint 1 tablet Enrique elkin 1-15 Irfan as needed l 00:00: Soma 2018-0 Yes Toussaint 1 tablet Memor ia 1-15 Irfan as needed l 00:00: Meloxicam 2018-0 Yes T[facility]aint 1 tablet Memoria 1-15 Irfan l 00:00: Maury 2018-0 Yes [place] 1 tablet Enrique elkin 1-15 Irfan as needed l 00:00: Soma 2018-0 Yes Toussaint 1 tablet Memor ia 1-15 Irfan as needed l 00:00: Meloxicam 2018-0 Yes T[place]aint 1 tablet Memoria 1-15 Irfan l 00:00: Maury 2018-0 Yes [place] 1 tablet Enrique elkin 1-15 Irfan as needed l 00:00: Soma 2018-0 Yes Toussaint 1 tablet Memor ia 1-15 Irfan as needed l 00:00: Meloxicam 2018-0 Yes T[facility]aint 1 tablet Memoria 1-15 Irfan l 00:00: Maury 2018-0 Yes [place] 1 tablet Enrique elkin 1-15 Irfan as needed l 00:00: Soma 2018-0 Yes Toussaint 1 tablet Memor ia 1-15 Irfan as needed l 00:00: Meloxicam 2018-0 Yes T[place]aint 1 tablet Memoria 1-15 Irfan l 00:00: Maury 2018-0 Yes Tosusaint 1 tablet Enrique elkin 1-15 Irfan as needed l 00:00: Soma 2018-0 Yes Toussaint 1 tablet Memor ia 1-15 Irfan as needed l 00:00: Meloxicam 2018-0 Yes T[facility]aint 1 tablet Memoria 1-15 Irfan l 00:00: Maury 2018-0 Yes [place] 1 tablet Enrique elkin 1-15 Irfan as needed l 00:00: Soma 2018-0 Yes T[place]aint 1 tablet Memor ia 1-15 Irfan as needed l 00:00: Meloxicam 2018-0 Yes [place]aint 1 tablet Memoria 1-15 Irfan l 00:00: Meloxicam 2018-0 Yes T[place]aint 1 tablet Memoria 1-15 Irfan l 00:00: Soma 2018-0 Yes T[place]aint 1 tablet Memor ia 1-15 Irfan as needed l 00:00: Maury 2018-0 Yes [facility] 1 tablet Enrique elkin 1-15 Irfan as needed l 00:00: Meloxicam 2018-0 Yes [place]aint 1 tablet Memoria 1-15 Irfan l 00:00: Soma 2018-0 Yes [place]aint 1 tablet Memor ia 1-15 Irfan as needed l 00:00: Maury 2018-0 Yes [facility] 1 tablet Enrique elkin 1-15 Irfan as needed l 00:00: Meloxicam 2018-0 Yes [facility]aint 1 tablet Memoria 1-15 Irfan l 00:00: Soma 2018-0 Yes [place]aint 1 tablet Memor ia 1-15 Irfan as needed l 00:00: Maury 2018-0 Yes [place] 1 tablet Enrique elkin 1-15 Irfan as needed l 00:00: Meloxicam 2018-0 Yes [facility]aint 1 tablet Memoria 1-15 Irfan l 00:00: Soma 2018-0 Yes T[place]aint 1 tablet Memor ia 1-15 Irfan as needed l 00:00: Maury 2018-0 Yes [place] 1 tablet Enrique elkin 1-15 Irfan as needed l 00:00: Meloxicam 2018-0 Yes [facility]aint 1 tablet Memoria 1-15 Irfan l 00:00: Soma 2018-0 Yes [place]aint 1 tablet Memor ia 1-15 Irfan as needed l 00:00: Maury 2018-0 Yes [place] 1 tablet Enrique elkin 1-15 Irfan as needed l 00:00: Meloxicam 2018-0 Yes [facility]aint 1 tablet Memoria 1-15 Irfan l 00:00: Soma 2018-0 Yes [place]aint 1 tablet Memor ia 1-15 Irfan as needed l 00:00: Maury 2018-0 Yes [facility] 1 tablet Enrique elkin 1-15 Irfan as needed l 00:00: Meloxicam 2018-0 Yes [facility]aint 1 tablet Memoria 1-15 Irfan l 00:00: Soma 2018-0 Yes [place]aint 1 tablet Memor ia 1-15 Irfan as needed l 00:00: Maury 2018-0 Yes [facility] 1 tablet Enrique elkin 1-15 Irfan as needed l 00:00: Meloxicam 2018-0 Yes [facility]aint 1 tablet Memoria 1-15 Irfan l 00:00: Soma 2018-0 Yes [place]aint 1 tablet Memor ia 1-15 Irfan as needed l 00:00: Maury 2018-0 Yes [facility] 1 tablet Enrique elkin 1-15 Irfan as needed l 00:00: Maury 2018-0 Yes [facility]aint 1 tablet Enrique elkin [...] Systolic blood 2023-07-20 08:16:00 150 mm[Hg] Univer sity of pressure [place] [facility] Diastolic blood 2023-07-20 08:16:00 90 mm[Hg] Unive rsity of pressure [place] [facility] Body temperature 2023-07-20 08:16:00 37.17 Amisha Univ ersity of [place] [facility] Respiratory rate 2023-07-20 08:16:00 19 /min Univ ersity of [place] [facility] Oxygen saturation in 2023-07-20 08:16:00 100 /min University of Arterial blood by [place] [facility] shannan Pulse oximetry Branch Heart rate 2023-07-20 05:30:00 73 /min Universi ty of [place] [facility] Body height 2023-07-20 05:30:00 165.1 cm Universi ty of [place] [facility] Body weight 2023-07-20 05:30:00 127.007 kg Universi ty of [place] [facility] BMI 2023-07-20 05:30:00 46.59 kg/m2 Universi ty of [place] [facility] Systolic blood 2022-05-31 01:59:00 128 mm[Hg] Univer sity of pressure [place] [facility] Diastolic blood 2022-05-31 01:59:00 81 mm[Hg] Unive rsity of pressure [place] [facility] Heart rate 2022-05-31 01:59:00 78 /min Universi ty of [place] [facility] Body temperature 2022-05-31 01:59:00 36.94 Amisha Univ ers[facility] [place] [facility] Respiratory rate 2022-05-31 01:59:00 18 /min Univ ersity of [place] [facility] Body height 2022-05-31 01:59:00 165.1 cm Universi ty [facility] [place] [facility] Body weight 2022-05-31 01:59:00 127.007 kg Universi ty of [place] [facility] BMI 2022-05-31 01:59:00 46.59 kg/m2 Universi ty of [place] [facility] Oxygen saturation in 2022-05-31 01:59:00 95 /min University of Arterial blood by [facility] shannan Pulse oximetry Branch Systolic blood 2022-05-10 02:39:00 148 mm[Hg] Univer sity of pressure [place] [facility] Diastolic blood 2022-05-10 02:39:00 84 mm[Hg] Unive rsity of pressure [place] [facility] Heart rate 2022-05-10 02:39:00 70 /min Universi ty of [place] [facility] Body temperature 2022-05-10 02:39:00 37.56 Amisha Univ ersity [facility] [place] [facility] Respiratory rate 2022-05-10 02:39:00 18 /min Univ ersity of [facility] Body height 2022-05-10 02:39:00 162.6 cm Universi ty [facility] [place] [facility] Body weight 2022-05-10 02:39:00 127.007 kg [facility]i [facility] [place] [facility] BMI 2022-05-10 02:39:00 48.06 kg/m2 Universi ty of [facility] Oxygen saturation in 2022-05-10 02:39:00 95 /min University of Arterial blood by [facility] Pulse oximetry Branch Body weight 2022-04-23 20:11:00 133.131 kg Universi ty of [facility] BMI 2022-04-23 20:11:00 50.38 kg/m2 Universi ty of [facility] Systolic blood 2022-04-23 20:09:00 140 mm[Hg] Univer sity of pressure [facility] Diastolic blood 2022-04-23 20:09:00 81 mm[Hg] Unive rsity of [facility] Heart rate 2022-04-23 20:09:00 66 /min Universi ty of [facility] Body temperature 2022-04-23 20:09:00 36.72 Amisha [facility] 2022-04-23 20:09:00 17 /min [facility] Body height 2022-04-23 20:09:00 162.6 cm Universi ty [facility] Oxygen saturation in 2022-04-23 20:09:00 97 /min University of Arterial blood by [facility] Pulse oximetry Branch Systolic blood 2022-06-18 15:20:24 157 mm[Hg] [facility] pressure Diastolic blood 2022-06-18 15:20:24 74 mm[Hg] [facility] pressure Heart rate 2022-06-18 15:20:24 53 /min [facility] Body temperature 2022-06-18 15:20:24 36.78 Amisha [facility] Respiratory rate 2022-06-18 15:20:24 16 /min [facility] Oxygen saturation in 2022-06-18 15:20:24 97 /min [facility] Arterial blood by Pulse oximetry Body height 2022-06-18 12:48:00 162.6 cm [facility] Body weight 2022-06-18 12:48:00 127.007 kg [facility] BMI 2022-06-18 12:48:00 48.06 kg/m2 [facility] Systolic blood 2022-05-21 00:33:00 132 mm[Hg] [facility] pressure Diastolic blood 2022-05-21 00:33:00 64 mm[Hg] [facility] pressure Heart rate 2022-05-21 00:33:00 64 /min [facility] Oxygen saturation in 2022-05-21 00:33:00 98 /min [facility] Arterial blood by Pulse oximetry Body temperature 2022-05-20 23:53:12 36.17 Amisha [facility] Respiratory rate 2022-05-20 23:53:12 18 /min [facility] Body height 2022-05-20 23:52:00 162.6 cm [facility] Body weight 2022-05-20 23:52:00 127.007 kg [facility] BMI 2022-05-20 23:52:00 48.06 kg/m2 [facility] Weight 2017-10-25 15:00:00 [facility] Height 2017-10-25 15:00:[facility] Oral (F) 2017-10-25 15:00:00 97.8 F [facility] Heart Rate 2017-10-25 15:00:00 [facility] Diastolic (mm Hg) 2017-10-25 15:00:00 [facility] Systolic (mm Hg) 2017-10-25 15:00:00 Enrique ria [facility] Body Temperature 2017-10-21 12:00:00 97.5 F [facility] (LUF/BLANCA/SA) Respiratory Rate 2017-10-21 12:00:00 20 /min [facility] ([facility]/BLANCA/SA) O2% BldC Oximetry 2017-10-21 12:00:00 98 % [facility] (LUF/BLANCA/SA) BP Systolic 2017-10-21 12:00:00 132 mm[Hg] [facility] (LUF/BLANCA/SA) BP Diastolic 2017-10-21 12:00:00 78 mm[Hg] [facility] (LUF/BLANCA/SA) Height 2017-10-21 12:00:00 64 in [facility] (LUF/BLANCA/SA) Weight Measured 2017-10-21 12:00:00 282.19 lbs [facility] Jose cline [facility] (LUF/BLANCA/SA) BMI (Body Mass 2017-10-21 12:00:00 48.7 [facility] Index) [facility] (LUF/BLANCA/SA) Weight 2017-10-08 15:45:00 [facility] Egnar Height 2017-10-08 15:45:00 [facility] Egnar Temperature Oral (F) 2017-10-08 15:45:00 96.8 F [facility] Heart Rate 2017-10-08 15:45:00 [facility] Diastolic (mm Hg) 2017-10-08 15:45:00 [facility] orial Egnar Systolic (mm Hg) 2017-10-08 15:45:00 Enrique rial [facility] Procedures Procedure Date / Time Performing Clinician Source Performed POCT GLUCOSE (AUTOMATED) 2023-07-20 08:08:00 Jeni Rojas [facility] POCT GLUCOSE (AUTOMATED) 2023-07-20 07:31:00 Jeni Rojas [facility] [place] [facility] CT CERVICAL SPINE WO 2023-07-20 06:20:27 [facility] XR CHEST 1 VW 2023-07-20 05:54:14 Sandor Galicia [facility] LIPASE 2023-07-20 05:42:00 Sandor Galicia [facility] TROPONIN I 2023-07-20 05:42:00 Sandor Galicia [facility] COMP. METABOLIC PANEL 2023-07-20 05:42:00 Sandor Galicia [facility] ([id number]) [facility] CBC WITH DIFF 2023-07-20 05:42:00 Sandor Galicia [facility] NOTICE OF PRIVACY 2023-07-20 05:20:03 Doctor Unassigned, No Univ [facility] PRACTICES Name Medical Branch CONSENT/REFUSAL FOR 2023-07-20 05:19:08 Doctor Unassigned, No [facility] Name Medical Branch CT MAXILLOFACIAL WO 2022-06-18 14:48:32 Frida Patton [facility] CONTRAST CONSENT/REFUSAL FOR 2022-05-31 01:55:15 Doctor Unassigned, No Un [facility] [place] DIAGNOSIS AND TREATMENT Name Medical Branch CT CERVICAL SPINE WO 2022-05-21 01:24[facility] CONTRAST CT HEAD WO CONTRAST 2022-05-21 01:15:40 DarciKaycee Rubalcava [facility]SE 2022-05-21 00:33:00 [facility] NOTICE OF PRIVACY 2022-05-10 02:37:04 Doctor Unassigned, No Univ [facility] [place] PRACTICES Name Medical Branch CONSENT/REFUSAL FOR 2022-05-10 02:35:02 Doctor Unassigned, No Un [facility] [place] DIAGNOSIS AND TREATMENT Name Medical Branch CONSENT/REFUSAL FOR 2022-04-23 20:00:28 Doctor Unassigned, No Un [facility] [place] DIAGNOSIS AND TREATMENT Name Medical Branch Plan of Care Planned Activity Planned Date Details Comments Source Future Scheduled 2023-07-21 Screening for [facility] Test 22:07:17 malignant neoplasm of colon (procedure) [code = 691040919] Future Scheduled 2023-07-21 Screening for [facility] Test 22:07:17 malignant neoplasm of colon (procedure) [code = 071033275] Future Scheduled 2023-07-21 Screening for [facility] Test 22:07:17 malignant neoplasm of colon (procedure) [code = 732056505] Future Scheduled 2023-07-21 Hepatitis C screening [facility] Test 22:07:17 (procedure) [code = 421649909] Future Scheduled 2023-07-21 Screening for [facility] Test 22:07:17 malignant neoplasm of colon (procedure) [code = 603320227] Future Scheduled 2023-07-21 Screening for [facility] Test 22:07:17 malignant neoplasm of colon (procedure) [code = 223926832] Future Scheduled 2023-07-21 COVID-19 VACCINE (3 - [facility] Test 22:07:17 ) [code = COVID-19 VACCINE ( season)] Future Scheduled 2023-07-21 [facility]FLUENZA [facility]ACCINE [facility] 22:07:17 (#1) [code = INFLUENZA VACCINE (#1)] Future Scheduled 2023-07-21 Screening for [facility] Test 22:07:17 malignant neoplasm of colon (procedure) [code = 912327952] Future Scheduled 2023-07-21 Screening for [facility] Test 22:07:17 malignant neoplasm of colon (procedure) [code = 660899754] Future Scheduled 2023-07-21 Screening for [facility] Test 22:07:17 malignant neoplasm of colon (procedure) [code = 379730682] Future Scheduled 2023-07-21 [facility] Test 22:07:17 (procedure) [code = 935815058] Future Scheduled 2023-07-21 Screening for [facility] Test 22:07:17 malignant neoplasm of colon (procedure) [code = 217723512] Future Scheduled 2023-07-21 Screening for [facility] Test 22:07:17 malignant neoplasm of colon (procedure) [code = 182853214] Future Scheduled 2023-07-21 COVID-19 VACCINE ([facility] 22:07:17 ) [code = COVID-19 VACCINE ()] Future Scheduled 2023-07-21 IN[facility]ENZA VACCINE [facility] Test 22:07:17 (#1) [code = INFLUENZA VACCINE (#1)] Future Scheduled 2023-07-06 Screening for [facility] Test 06:35:42 malignant neoplasm of colon (procedure) [code = 149583608] Future Scheduled 2023-07-06 Screening for [facility] Test 06:35:42 malignant neoplasm of colon (procedure) [code = 488842661] Future Scheduled 2023-07-06 Screening for [facility] Test 06:35:42 malignant neoplasm of colon (procedure) [code = 767011781] Future Scheduled 2023-07-06 Hepatitis C screening [facility] Test 06:35:42 (procedure) [code = 794247645] Future Scheduled 2023-07-06 Screening for [facility] Test 06:35:42 malignant neoplasm of colon (procedure) [code = 698604539] Future Scheduled 2023-07-06 Screening for [facility] Test 06:35:42 malignant neoplasm of colon (procedure) [code = 586644873] Future Scheduled 2023-07-06 COVID-19 VACCINE (3 - [facility] Test 06:35:42 ) [code = COVID-19 VACCINE ()] Future Scheduled 2023-07-06 INFLUENZA VACCINE [facility] Test 06:35:42 (#1) [code = INFLUENZA VACCINE (#1)] Future Scheduled 2023-07-06 RSV VACCINES > 60 YR [facility] Test 06:35:42 (1 - 1-dose 60+ series) [code = RSV VACCINES > 60 YR (1 - 1-dose 60+ series)] Future Scheduled 2023-07-06 Screening for [facility] Test 06:35:42 malignant neoplasm of colon (procedure) [code = 710046375] Future Scheduled 2023-07-06 Screening for [facility] Test 06:35:42 malignant neoplasm of colon (procedure) [code = 084656039] Future Scheduled 2023-07-06 Screening for [facility] Test 06:35:42 malignant neoplasm of colon (procedure) [code = 506581563] Future Scheduled 2023-07-06 Hepatitis C screening [facility] Test 06:35:42 (procedure) [code = 356964066] Future Scheduled 2023-07-06 Screening for [facility] Test 06:35:42 malignant neoplasm of colon (procedure) [code = 937215253] Future Scheduled 2023-07-06 Screening for [facility] Test 06:35:42 malignant neoplasm of colon (procedure) [code = 437874562] Future Scheduled 2023-07-06 COVID-19 VACCINE (3 - [facility] Test 06:35:42 ) [code = COVID-19 VACCINE ()] Future Scheduled 2023-07-06 INFLUENZA VACCINE [facility] Test 06:35:42 (#1) [code = INFLUENZA VACCINE (#1)] Future Scheduled 2023-07-06 RSV VACCINES > 60 YR Met [facility] Test 06:35:42 (1 - 1-dose 60+ series) [code = RSV VACCINES > 60 YR (1 - 1-dose 60+ series)] Future Scheduled 2023-06-24 [facility] Test 02:49:40 malignant neoplasm of colon (procedure) [code = 057891459] Future Scheduled 2023-06-24 [facility] for [facility] Test 02:49:40 malignant neoplasm of colon (procedure) [code = 719204565] Future Scheduled 2023-06-24 [facility] Test 02:49:40 malignant neoplasm of colon (procedure) [code = 983584861] Future Scheduled 2023-06-24 [facility] 02:[facility]:40 (procedure) [code = 397545296] Future Scheduled 2023-06-24 COVID-19 VACCINE ([facility] - [facility] 02:49:40 Pfizer series) [code = COVID-19 VACCINE (3 - Pfizer series)] Future Scheduled 2023-06-24 Screening for [facility] Test 02:49:40 malignant neoplasm of colon (procedure) [code = 442465398] Future Scheduled 2023-06-24 [facility] Test 02:49:40 malignant neoplasm of colon (procedure) [code = 346137433] Future Scheduled 2023-06-24 [facility]INE [facility] 02:49:40 (#1) [code = INFLUENZA VACCINE (#1)] Future Scheduled 2023-06-24 Screening for [facility] Test 02:49:40 malignant neoplasm of colon (procedure) [code = 044513761] Future Scheduled 2023-06-24 [facility] Test 02:49:40 malignant neoplasm of colon (procedure) [code = 286016115] Future Scheduled 2023-06-24 [facility] Test 02:49:40 malignant neoplasm of colon (procedure) [code = 398750682] Future Scheduled 2023-06-24 [facility] 02:49:40 (procedure) [code = 118347563] Future Scheduled 2023-06-24 COVID-19 VACCINE (3 - [facility] 02:49:40 Pfizer series) [code = COVID-19 VACCINE (3 - Pfizer series)] Future Scheduled 2023-06-24 Screening for [facility] Test 02:49:40 malignant neoplasm of colon (procedure) [code = 450876469] Future Scheduled 2023-06-24 [facility] Test 02:49:40 malignant neoplasm of colon (procedure) [code = 227371296] Future Scheduled 2023-06-24 [facility]INE [facility] 02:49:40 (#1) [code = INFLUENZA VACCINE (#1)] Future Scheduled 2023-05-28 [facility] Test 18:05:11 malignant neoplasm of colon (procedure) [code = 460779972] Future Scheduled 2023-05-28 [facility] Test 18:05:11 malignant neoplasm of colon (procedure) [code = 999814966] Future Scheduled 2023-05-28 [facility] Test 18:05:11 malignant neoplasm of colon (procedure) [code = 369242908] Future Scheduled 2023-05-28 Hepatitis C screening [facility] Test 18:05:11 (procedure) [code = 166428493] Future Scheduled 2023-05-28 COVID-19 VACCINE (3 - [facility] Test 18:05:11 Pfizer series) [code = COVID-19 VACCINE (3 - Pfizer series)] Future Scheduled 2023-05-28 Screening for [facility] Test 18:05:11 malignant neoplasm of colon (procedure) [code = 092065029] Future Scheduled 2023-05-28 [facility] Test 18:05:11 malignant neoplasm of colon (procedure) [code = 913997980] Future Scheduled 2023-05-28 [facility] 18:05:11 (#1) [code = INFLUENZA VACCINE (#1)] Future Scheduled 2023-04-27 [facility] Test 11:13:08 malignant neoplasm of colon (procedure) [code = 296524681] Future Scheduled 2023-04-27 [facility] Test 11:13:08 malignant neoplasm of colon (procedure) [code = 154818468] Future Scheduled 2023-04-27 [facility] Test 11:13:08 malignant neoplasm of colon (procedure) [code = 399691919] Future Scheduled 2023-04-27 Hepatitis C screening [facility] 11:13:08 (procedure) [code = 098690652] Future Scheduled 2023-04-27 COVID-19 VACCINE ([facility] - [facility] 11:13:08 Pfizer series) [code = COVID-19 VACCINE (3 - Pfizer series)] Future Scheduled 2023-04-27 [facility] Test 11:13:08 malignant neoplasm of colon (procedure) [code = 767913390] Future Scheduled 2023-04-27 [facility] Test 11:13:08 malignant neoplasm of colon (procedure) [code = 108478693] Future Scheduled 2023-04-27 [facility]INE [facility] 11:13:08 [code = INFLUENZA VACCINE] Future Scheduled 2023-04-27 [facility] Test 11:13:08 malignant neoplasm of colon (procedure) [code = 894060190] Future Scheduled 2023-04-27 [facility] Test 11:13:08 malignant neoplasm of colon (procedure) [code = 893930525] Future Scheduled 2023-04-27 [facility] Test 11:13:08 malignant neoplasm of colon (procedure) [code = 672359363] Future Scheduled 2023-04-27 [facility] Test 11:13:08 (procedure) [code = 696612228] Future Scheduled 2023-04-27 COVID-19 [facility]ACCINE ([facility] 11:13:08 Pfizer series) [code = COVID-19 VACCINE (3 - Pfizer series)] Future Scheduled 2023-04-27 [facility] Test 11:13:08 malignant neoplasm of colon (procedure) [code = 141236051] Future Scheduled 2023-04-27 [facility] Test 11:13:08 malignant neoplasm of colon (procedure) [code = 154109310] Future Scheduled 2023-04-27 [facility]ZA [facility]ACCINE [facility] 11:13:08 [code = INFLUENZA VACCINE] Future Scheduled 2023-01-09 Hepatitis C screening [facility] Test 02:12:34 (procedure) [code = 728889450] Future Scheduled 2023-01-09 COVID-19 VACCINE ([facility] 02:12:34 Booster for Pfizer series) [code = COVID-19 VACCINE (3 - Booster for Pfizer series)] Future Scheduled 2023-01-09 COLONOSCOPY SCREENING [facility] Test 02:12:34 [code = COLONOSCOPY SCREENING] Future Scheduled 2023-01-09 [facility]ZA VACCINE [facility] 02:12:34 [code = INFLUENZA VACCINE] Future Scheduled 2023-01-09 [facility] 02:12:34 (procedure) [code = 574789300] Future Scheduled 2023-01-09 COVID-19 VACCINE (3 - [facility] 15:04:49 (procedure) [code = 070304192] Future Scheduled 2022-09-08 COVID-19 VACCINE ([facility] - [facility] 15:04:49 Booster for Pfizer series) [code = COVID-19 VACCINE (3 - Booster for Pfizer series)] Future Scheduled 2022-09-08 [facility]ZA [facility]ACCINE [facility] 15:04:49 [code = INFLUENZA VACCINE] Future Scheduled 2022-09-08 [facility] 15:04:49 (procedure) [code = 958682435] Future Scheduled 2022-09-08 COVID-19 VACCINE (3 - [facility] 15:04:49 Booster for Pfizer series) [code = COVID-19 VACCINE (3 - Booster for Pfizer series)] Future Scheduled 2022-09-08 [facility]ZA [facility]INE [facility] 15:04:49 [code = INFLUENZA VACCINE] Future Scheduled 2022-09-08 [facility] 15:04:49 (procedure) [code = 406092530] Future Scheduled 2022-09-08 COVID-19 VACCINE (3 - [facility] 15:04:49 Booster for Pfizer series) [code = COVID-19 VACCINE (3 - Booster for Pfizer series)] Future Scheduled 2022-09-08 [facility]ZA VACCINE [facility] 15:04:49 [code = INFLUENZA VACCINE] Future Scheduled 2022-09-08 [facility] 15:04:49 (procedure) [code = 700855810] Future Scheduled 2022-09-08 COVID-19 VACCINE (3 - [facility] Test 15:04:49 Booster for Pfizer series) [code = COVID-19 VACCINE (3 - Booster for Pfizer series)] Future Scheduled 2022-09-08 INFLUENZA VACCINE Method [facility] Test 15:04:49 [code = INFLUENZA VACCINE] Future Scheduled 2022-06-18 HEPATITIS B VACCINES [facility] Test 09:25:33 (1 of 3 - 3-dose series) [code = HEPATITIS B VACCINES (1 of 3 - 3-dose series)] Future Scheduled 2022-06-18 Hepatitis C screening [facility] Test 09:25:33 (procedure) [code = 853951880] Future Scheduled 2022-06-18 COVID-19 VACCINE (3 - [facility] Test 09:25:33 Booster for Pfizer series) [code = COVID-19 VACCINE (3 - Booster for Pfizer series)] Future Scheduled 2022-06-18 INFLUENZA VACCINE Method [facility] Test 09:25:33 [code = INFLUENZA VACCINE] Future Scheduled 2022-06-18 HEPATITIS B VACCINES Met [facility] Test 09:25:33 (1 of 3 - 3-dose series) [code = HEPATITIS B VACCINES (1 of 3 - 3-dose series)] Future Scheduled 2022-06-18 Hepatitis C screening [facility] 09:25:33 (procedure) [code = 080778635] Future Scheduled 2022-06-18 COVID-19 VACCINE (3 - [facility] Test 09:25:33 Booster for Pfizer series) [code = COVID-19 VACCINE (3 - Booster for Pfizer series)] Future Scheduled 2022-06-18 INFLUENZA VACCINE Method [facility] Test 09:25:33 [code = INFLUENZA VACCINE] Future Scheduled 2022-06-18 HEPATITIS B VACCINES Met [facility] Test 09:25:33 (1 of 3 - 3-dose series) [code = HEPATITIS B VACCINES (1 of 3 - 3-dose series)] Future Scheduled 2022-06-18 Hepatitis C screening [facility] 09:25:33 (procedure) [code = 384308604] Future Scheduled 2022-06-18 COVID-19 VACCINE (3 - [facility] Test 09:25:33 Booster for Pfizer series) [code = COVID-19 VACCINE (3 - Booster for Pfizer series)] Future Scheduled 2022-06-18 INFLUENZA VACCINE Method [facility] Test 09:25:33 [code = INFLUENZA VACCINE] Future Scheduled 2022-06-09 HEPATITIS B VACCINES Met [facility] Test 18:36:38 (1 of 3 - 3-dose series) [code = HEPATITIS B VACCINES (1 of 3 - 3-dose series)] Future Scheduled 2022-06-09 Hepatitis C screening [facility] 18:36:38 (procedure) [code = 624797600] Future Scheduled 2022-06-09 COVID-19 VACCINE (3 - [facility] 18:36:38 Booster for Pfizer series) [code = COVID-19 VACCINE (3 - Booster for Pfizer series)] Future Scheduled 2022-06-09 INFLUENZA VACCINE Method [facility] Test 18:36:38 [code = INFLUENZA VACCINE] Future Scheduled 2022-05-25 HEPATITIS B VACCINES Met [facility] Test 07:52:22 (1 of 3 - 3-dose series) [code = HEPATITIS B VACCINES (1 of 3 - 3-dose series)] Future Scheduled 2022-05-25 Hepatitis C screening [facility] 07:52:22 (procedure) [code = 174951693] Future Scheduled 2022-05-25 COVID-19 VACCINE (3 - [facility] 07:52:22 Booster for Pfizer series) [code = COVID-19 VACCINE (3 - Booster for Pfizer series)] Future Scheduled 2022-05-25 INFLUENZA VACCINE Method [facility] Test 07:52:22 [code = INFLUENZA VACCINE] Future Scheduled 2022-05-25 HEPATITIS B VACCINES Met [facility] Test 07:52:22 (1 of 3 - 3-dose series) [code = HEPATITIS B VACCINES (1 of 3 - 3-dose series)] Future Scheduled 2022-05-25 Hepatitis C screening [facility] 07:52:22 (procedure) [code = 025959395] Future Scheduled 2022-05-25 COVID-19 VACCINE (3 - [facility] 07:52:22 Booster for Pfizer series) [code = COVID-19 VACCINE (3 - Booster for Pfizer series)] Future Scheduled 2022-05-25 INFLUENZA VACCINE Method [facility] Test 07:52:22 [code = INFLUENZA VACCINE] Encounters Start End Encounter Admission Attending Care Care Encounter Source Date/Time Date/Time Type Type Clinicians Facility Department ID 2023-07-26 Outpatient [id number] A5C4 3F5E-0 [facility] 08:26:22 7KT5-1041 F4-4066-9A6 FF4-4066- 9 l -1U8O-K2N A-B1P0R7V38 Y7O-P7N2K5 Tavo [id number] 049 [id number] 2023-07-21 Outpatient 83XE22D6- 68LF85Y6-3F 31EF 30F2-2 [facility] 22:07:37 8T3F-34L5 7D-23U3-4P2 Z0B-85Y9- 9 l -6X15-995 1-6358T2920 P09-9979N7 Tavo [id number] 1DC 6671DC 2023-07-14 Outpatient [id number]- 62154LMJ-39 4868 9EFC-6 [facility] 00:51:20 98D1-2426 E4-4150-8E1 2Z8-6401- 8 l -7R8S-004 E-405C4D241 Q4R-559J3S Tavo [id number] 053 145949 9814-10-20 Outpatient 7HP78X3L- 9YX38I5U-Q8 8FC7 7D6D-E [facility] 01:23:31 W0HC-3Q8Q CA-9A1Y-0D0 7CA-4E7E- 8 l -7T3F-49Z B-57C682564 F2C-22P615 Tavo [id number] 71F 91664R 2023-07-02 Outpatient 3QRXP8B4- 1LRCU6X8-17 9DBE E8E3-0 [facility] 08:48:04 061C-482C 1C-482C-8C0 61C-482C- 8 l -0K8B-212 F-742EID355 O9K-264JJK Tavo XSD441M6Q C8D 617C8D 2023-06-24 Outpatient 60H8NMEP- 87F3DPRZ-33 51C1 AAAB-9 [facility] 02:49:59 9981-479A 81-479A-962 981-479A- 9 l -9621-347 1-0286R26VE 621-3472C3 Tavo 5O76LUBLG EAC 9EBEAC 2023-06-03 Outpatient [id number]- [id number] 1108 20D3-5 [facility] 21:49:39 5824-4CD0 24-0MW1-LL7 824-4CD0- B l -UD35-2VP 5-7VT1MC932 G66-6QH0LF Tavo 4OE05483E 99E 08317O 2023-05-13 Outpatient 6WF7SC94- 5HL1OK78-90 9FB8 AE55-2 [facility] 00:04:30 10H4-6X22 E3-7M13-680 0U5-9A93- 8 l -818B-D48 B-T58A01314 18B-D48E11 Tavo V55105E36 B77 601B77 2023-04-28 Outpatient ML607V17- TP884O09-5C BF11 8E44-4 [facility] 01:56:12 5L98-72W3 29-62R6-03X J02-30R5- 8 l -13C8-474 6-9076880KQ 1P7-015028 Tavo 8745RM59O 55D 4BD55D 2023-02-13 Outpatient 20R3O846- 89I9R398-H8 74F9 E380-D [facility] 07:15:33 O023-1NR1 14-5XT7-WI4 414-4AA9- A l -DR3Z-2EV A-0SOJR4G30 W0H-3BSRJ9 Tavo SR7N87S2A F4B A56F4B 2023-01-21 Outpatient 54H186F5- 95M207H2-7Q 16F3 10F0-0 [facility] 18:12:35 8RJ2-47Y0 C8-83W4-93V EC8-41B6- 8 l -84FA-CDD A-HVL075CBE 4FA-XDX455 Tavo 089LRH221 063 KBN087 2022-12-02 Outpatient 03R841G0- 32X634D5-19 04F8 97C6-9 [facility] 21:50:02 977E-4F82 7E-5E31-177 77E-4F82- 8 l -8693-8E8 3-4T6U12068 693-8E8C26 Tavo H085700W1 6F6 1306F6 2022-11-12 Outpatient S0815NZ5- G2366ZS4-PS F702 5ED6-A [facility] 01:29:42 ADA0-43F6 A0-26S5-H81 DA0-43F6- A l -A961-13I 6-59J0I71QA 116-87F8D9 Tavo 6P85ZOL2B C1D 5BBC1D 2022-10-16 Outpatient 4P777KQE- 7I326YOS-5K 7A87 7EEE-1 [facility] 06:48:40 2UF2-2271 B4-4798-8A7 AB4-4798- 8 l -3G1E-80D F-67I8QF855 C6U-55E9LG Tavo 3NK141X06 D64 698D64 2022-09-25 Outpatient 3JC7517N- 6AD5189P-45 3BD2 723F-9 [facility] 18:40:25 05Q0-7J25 D1-6S71-80R 1W3-4U86- 8 l -89BD-1A5 D-7J0KXVC82 9BD-1A5DCD Tavo CVVB304P9 6A3 E256A3 2022-07-11 Outpatient 23K4K81V- 49X4F78R-35 94C6 F00D-5 [facility] 20:33:16 35L5-07OO F4-47BE-8F8 8R0-84YG- 8 l -1L6N-18E F-71GQZB564 P6N-61BUWX Tavo TVR931MYB FAD 309FAD 2022-07-05 Outpatient 9534R5F8- 6508Q4T6-99 3842 B7D1-4 [facility] 21:55:55 75J5-46C9 E6-23F6-T00 1S2-97L1- A l -C29J-8P2 A-3W262XOF7 53A-5P141F Tavo 52HHT0Z4R F6F BA1F6F 2022-06-20 Outpatient VEFOV1IG- IUFOD2LU-W4 FEAA B0FE-B [facility] 20:55:03 F73G-6ONU 9E-4FBC-9E6 39E-4FBC- 9 l -2Z54-V14 0-T31IGF412 H91-P56KLI Tavo MXI9094J8 7B9 9867B9 2022-06-18 Outpatient 8X0464RL- 8V1859CO-0Q 4A16 41FC-3 [facility] 07:44:31 2N52-4TVK 17-4EED-9D8 Q68-5CIA- 9 l -6H63-R0T 1-Z7UX076H5 B99-J9PU22 Tavo L467B0Q87 A09 2A0A09 2022-06-14 Outpatient 1I4167J5- 2L8733N3-B2 4F66 73A9-D [facility] 22:44:21 P53S-6N17 0A-9K21-823 90A-4A19- 9 l -9064-22B 4-97H090U8H 064-44A442 Tavo 783B8L512 120 F2A454 2022-06-08 Outpatient [id number]- J7485MI7-O2 F051 4BD7-F [facility] 21:22:44 D26Y-7MC4 4B-7IU6-604 44B-4BC4- 8 l -819B-E8C B-E3Y77381E 19B-T8O056 Tavo 40832FD31 C63 53AC63 2022-06-03 Outpatient VOIA33S2- NRBE09N0-02 ABCB 93A3-4 [facility] 01:33:52 4565-43DE 65-43DE-92E 565-43DE- 9 l -29G5-506 7-930LE50TN 3R7-922NY3 Tavo YF65UM676 217 6VB225 2022-05-30 Outpatient 100DX422- 276UO756-3R 114E F493-4 [facility] 20:55:52 9S14-128T 39-438E-9B8 C25-193O- 9 l -8R48-7BG 0-7GHH1T9XF W65-3ERA8Z Tavo S8B1VMT72 F41 4BEF41 2022-05-20 Outpatient 0E24W34E- 0X45P46H-8R 5C46 A21D-1 [facility] 18:55:15 1FAA-4CF3 AA-2XZ9-60Y FAA-4CF3- 8 l -80ED-A77 D-T70Y49513 0ED-A77A25 Tavo [id number] 664 885189 8172-09-27 Outpatient [id number]- 2G681531-49 5C72 5329-4 [facility] 14:21:52 73T0-0KMD F0-4CEA-948 3F5-7JJY- 9 l -9486-B77 6-U88WUM3H2 486-B77BBD Tavo QZB6S85U3 4C4 1C14C4 2021-06-20 Outpatient 786OCI21- 351LXJ30-17 596A BE16-8 [facility] 14:21:45 8434-49AE 34-49AE-95B 434-49AE- 9 l -95BD-57D D-53VZ15B7Z 5BD-57DA06 Tavo Z06T5V604 032 Z2I611 2021-05-30 Outpatient [id number]- TL757429-OX CE68 9471-D [facility] 15:44:20 DAF5-4596 F5-4596-BFE AF5-4596- B l -BFE1-51A 1-01ITB57JC FE1-51ACA1 Tavo NR30RO7QF 1BA 9CA1BA 2020-01-20 Inpatient [facility] [id number] [facility] 15:25:[address] [facility] 2019-12-16 Inpatient [facility] [id number] [facility] 17:49:[address] [facility] 2019-12-12 Inpatient [facility] [id number] [facility] 08:32:[address] [facility] 2019-11-27 Inpatient [facility] [id number] [facility] 07:33:[address] [facility] 2023-07-20 2023-07-20 Emergency X JAIRO [facility] ERT [id number] [facility] 00:34:00 03:25:00 JENI ibrahim [facility] 2023-07-20 2023-07-20 [facility] 1.2.840.114 10 [id number] Univers 00:34:00 03:25:00 Jeni RUSSO 350.1.13.10 ity [facility] 4.2.7.2.686 [facility] [id number] [address] 2022-06-18 2022-06-18 Emergency Rodolfo, 1.2.840.1 [id number] [id number] Methodi 07:52:00 10:32:[address] [facility] 3.430.2.7 [facility] .3.292926 l .8 2022-05-30 2022-05-30 [facility] [id number] Univers 21:02:00 21:53:00 ALBIN [facility] 2022-05-30 2022-05-[address] [facility] 1.2.121.147 3411 2067 [facility] 21:02:00 21:53:00 Albin RUSSO 350.1.13.10 i ty [facility] 4.2.7.2.686 [facility] [id number] [address] 2022-05-20 2022-05-20 Emergency Bárbara 1.2.840.1 [id number] Methodi 19:29:00 21:04:00 [address]ce[address]652.1.[address] 3.430.2.7 Hospit a .3.612772 l .8 2022-05-20 2022-05-20 Travel 1.2.840.1 1.2.900.314 7697 461352 Methodi 00:00:00 00:00:[address] 3.430.2.7 0.2.7.3.698 [facility] .3.919776 084.8 l .8 2022-05-09 2022-05-09 Emergency [facility] [id number] Univers 21:45:00 21:46:00 [facility]22-[facility]-09 2022-05-09 Emergency [facility] 1.2.840.114 [id number] Univers 21:45:00 21:46:00 Cher RUSSO 350.1.13.10 ity [facility] 4.2.7.2.686 [facility] [id number] [address] 2022-04-23 2022-04-23 [facility] [id number] Univers 15:11:00 15:52:00 BO hancock y [facility] 2022-04-23 2022-04-23 [facility] 1.2.387.611 0986 2241 Univers 15:11:00 15:52:00 [facility]2.[facility] [id number] [address] 2021-09-14 2021-09-14 Outpatient [place] [id number] [address] [place] 02:13:00 02:[place] [id number] [facility] 2021-09-08 2021-09-08 Outpatient [facility] 117 [address] [place] 02:19:00 02:19[place] [id number] [facility] 2017-11-01 2017-11-01 Outpatient [facility] [id number] [facility] 10:47:00 10:47:00 [facility] 2017-10-25 2017-10-25 Outpatient [facility] [id number] [facility] 09:00:00 09:00:00 [facility] 2017-10-21 2017-10-21 PAIN IN NIKKI [facility] [id number] 11:51:00 14:48:00 TH[facility]ACIC [facility] 2017-10-21 2017-10-21 PAIN IN NIKKI [facility] [id number] [facility] 11:51:00 14:48:00 [facility], [address], (LUF/[place] [address] 2017-10-08 2017-10-08 Outpatient Family Family [id number] [facility]inic 09:45:00 09:45:00 [facility] Clinic Results Test Description Test Time Test Comments Results Result Comments Source POCT GLUCOSE (AUTOMATED) 2023-07-20 08:11:02 Test Item Value Reference Range Interpretation Comme nts POCT GLU (test code = 0613326480) 192 mg/dL 70-110 H Lab Interpretation (test code = 04016-6) [facility] 07:42:37 Test Item Value Reference Range Interpretation Comments POCT GLU (test code = 2137714217) 391 mg/dL 70-110 H Lab Interpretation (test code = Abnormal 25435-2) [facility] [id number] 06:59:13 Test Item Value Reference Range Interpretation Comments TROPONIN I (test code = 0.006 ng/mL <=0.034 8138560104) TONNY (test code = TONNY) Reference (Normal) [...] biotin. Lab Interpretation Normal (test code = 85206-0) [facility]. METABOLIC PANEL (01064)2023-07-20 06:53:36 Test Item Value Reference Range Interpretation Comments NA (test code = 130 mmol/L 135-145 L 6169402819) K (test code = 3.8 mmol/L 3.5-5.0 0630895284) CL (test code = 94 mmol/L 98-108 L 4748987725) CO2 TOTAL (test code = 25 mmol/L 23-31 7058475010) AGAP (test code = 11 2-16 8897181849) BUN (test code = 11 mg/dL 7-23 3031326396) GLUCOSE (test code = 544 mg/dL 70-110 HH 3221431578) CREATININE (test code = 0.61 mg/dL 0.60-1.25 4426750190) TOTAL BILI (test code = 1.7 mg/dL 0.1-1.1 H 4827167250) CALCIUM (test code = 9.0 mg/dL 8.6-10.6 8867090466) T PROTEIN (test code = 7.0 g/dL 6.3-8.2 1982509966) ALBUMIN (test code = 3.8 g/dL 3.5-5.0 1920829005) ALK PHOS (test code = 99 U/L 34-122 2613436172) ALTv (test code = 44 U/L 5-50 1742-6) AST(SGOT) (test code = 41 U/L 13-40 H 0320862486) eGFR (test code = 142.9 mL/min/1.73m2 4472092165) TONNY (test code = TONNY) Association of [...] tests). Lab Interpretation Abnormal (test code = 04101-5) [id number]:50:54 Test Item Value Reference Range Interpretation Comments LIPASE (test code = 1399254445) 45 U/L 0-220 Lab Interpretation (test code = Normal 40788-5) [facility] [id number] 06:32:35 Test Item Value Reference Range Interpretation Comments WBC (test code = 7.95 See_Comment [Automated 2056-2) message] The sy stem which generated this result transmitted reference range : 4.20 - 10.70 10*3/?L. The reference range was not used to interpret this result as normal/abnormal . RBC (test code = 4.34 See_Comment [Automated 149-8) message] The sy stem which generated this [...] (test code = 38.3 fL 38.5-51.6 L 19960-0) RDW-CV (test code = 11.7 % 12.1-15.4 L 788-0) PLT (test code = 171 See_Comment [Automated 647-3) message] The sy stem which generated this result transmitted reference range : 150 - 328 10*3/ ?L. The reference r eddy was not used to interpret this result as normal/abnormal . MPV (test code = 12.7 fL 9.8-13.0 47905-2) NRBC/100 WBC (test 0.0 See_Comment [Automat ed code = [id number]) message] The system which generated this result transmitted reference range : 0.0 - 10.0 /100 WBCs. The refer ence range was not u sed to interpret th is result as normal/abnormal . NRBC x10^3 (test code See_Comment [Auto mated = [id number]) message] The s ystem which generated this result transmitted reference range : 10*3/?L. The reference range was not used to interpret this result as normal/abnormal . GRAN MAT (NEUT) % 52.6 % (test code = 770-8) IMM GRAN % (test code 0.30 % = 8567759614) LYMPH % (test code = 36.2 % 736-9) MONO % (test code = 8.9 % 5905-5) EOS % (test code = 1.6 % 713-8) BASO % (test code = 0.4 % 706-2) GRAN MAT x10^3(ANC) 4.18 10*3/uL 1.99-6.95 (test code = 1969615105) IMM GRAN x10^3 (test 0.00-0.06 code = 5340061819) LYMPH x10^3 (test code 2.88 10*3/uL 1.09-3.23 = 731-0) MONO x10^3 (test code 0.71 10*3/uL 0.36-1.02 = 742-7) EOS x10^3 (test code = 0.13 10*3/uL 0.06-0.53 711-2) BASO x10^3 (test code 0.03 10*3/uL 0.01-0.09 = 704-7) Lab Interpretation Abnormal (test code = 26817-5) [facility] [id number] 00:34:00 Test Item Value Reference Range Interpretation Comments POC glucose (test code = 217 mg/dL 65-100 H Ope rator Name: Zach [id number]) BinosDevice ID: [id number] Lab Interpretation (test Abnormal code = 68903-9) [facility] [id number] 00:34:00 Test Item Value Reference Range Interpretation Comments POC glucose (test code = 217 mg/dL 65-100 H Ope rator Name: Zach Johnston) BinosDevice ID: [id number] Lab Interpretation (test Abnormal code = 81272-0) [facility] [id number] 00:34:00 Test Item Value Reference Range Interpretation Comments POC glucose (test code = 217 mg/dL 65-100 H Ope rator Name: Zach Lieberman7) BinosDevice ID: [id number] Lab Interpretation (test Abnormal code = 95142-3) [facility] [id number] 00:34:00 Test Item Value Reference Range Interpretation Comments POC glucose (test code = 217 mg/dL 65-100 H Ope rator Name: Zach Johnston) BinosDevice ID: [id number] Lab Interpretation (test Abnormal code = 31723-5) [facility]2022-08-28 00:34:00 Test Item Value Reference Range Interpretation Comments POC glucose (test code = 217 mg/dL 65-100 H Ope rator Name: Zach Johnston) BinosDevice ID: [id number] Lab Interpretation (test Abnormal code = 36854-4) [facility]2022-08-28 00:34:00 Test Item Value Reference Range Interpretation Comments POC glucose (test code = 217 mg/dL 65-100 H Ope rator Name: Zach Lieberman7) BinosDevice ID: [id number] Lab Interpretation (test Abnormal code = 26242-4) [facility] [id number] 00:34:00 Test Item Value Reference Range Interpretation Comments POC glucose (test code = 217 mg/dL 65-100 H Ope rator Name: Zach Lieberman7) BinosDevice ID: [id number] Lab Interpretation (test Abnormal code = 94077-4) [facility]2022-08-28 00:34:00 Test Item Value Reference Range Interpretation Comments POC glucose (test code = 217 mg/dL 65-100 H Ope rator Name: Zach Lieberman7) BinosDevice ID: [id number] Lab Interpretation (test Abnormal code = 90856-5) [id number] 00:34:00 Test Item Value Reference Range Interpretation Comments POC glucose (test code = 217 mg/dL 65-100 H Ope rator Name: Zach Johnston) BinosDevice ID: [id number] Lab Interpretation (test Abnormal code = 87402-8) [facility]2022-08-28 00:34:00 Test Item Value Reference Range Interpretation Comments POC glucose (test code = 217 mg/dL 65-100 H Ope rator Name: Zach Johnston) BinosDevice ID: [id number] Lab Interpretation (test Abnormal code = 75774-6) [facility]2022-08-28 00:34:00 Test Item Value Reference Range Interpretation Comments POC glucose (test code = 217 mg/dL 65-100 H Ope rator Name: Zach Johnston) BinosDevice ID: [id number] Lab Interpretation (test Abnormal code = 52590-1) [facility]2022-08-28 00:34:00 Test Item Value Reference Range Interpretation Comments POC glucose (test code = 217 mg/dL 65-100 H Ope rator Name: Zach Johnston) BinosDevice ID: [id number] Lab Interpretation (test Abnormal code = 03007-7) [facility] [id number] 00:34:00 Test Item Value Reference Range Interpretation Comments POC glucose (test code = 217 mg/dL 65-100 H Ope rator Name: Zach Johnston) BinosDevice ID: [id number] Lab Interpretation (test Abnormal code = 90187-1) [facility]2022-08-28 00:34:00 Test Item Value Reference Range Interpretation Comments POC glucose (test code = 217 mg/dL 65-100 H Ope rator Name: Zach Johnston) BinosDevice ID: [id number] Lab Interpretation (test Abnormal code = 95714-9) [facility] CT HEAD/BRAIN W/O [id number] 18:19:00 Patient Name: VIMAL BARROSO Unit No: [id number] EXAMS: CPT CODE: [id number] CT HEAD/BRAIN W/O CONT 46736 CLINICAL INFORMATION: Moderate frontal headaches. Coughing. Dictation [...] (1818) KirtAGV LORETA Lopez NAME: VIMAL BARROSO [address] [place] [address] PHYS: Germnaia Isaacs [place] [address] : 1975 AGE: 44 SEX: M LOC: B.ERS PHONE #: [phone] EXAM DATE: 12/16/2019 STATUS: PREER FAX #: [phone] RAD #: D/C DT PAGE 1 Signed Report Patient Name: VIMAL BARROSO Unit No: [id number] EXAMS: CPT CODE: [id number] CT HEAD/BRAIN W/O CONT 70686 (Continued) Orig Print D/T: S: 12/16/2019 (1821) LORETA Lopez NAME: VIMAL BARROOS [address] [place] [address] PHYS: KELLY Vargas Germania Engel [place] [address] : 1975 AGE: 44 SEX: M LOC: B.ERS PHONE #: [phone] EXAM DATE: 12/16/2019 STATUS: PRE ER FAX #: [phone] RAD #: D/C DT PAGE 2 Signed Report- XR CHEST 2 [id number] 09:11:00 FAX: Germania Engel NP [phone] [place]: St: REG Patient Name: VIMAL BARROSO Unit No: [id number] EXAMS: CPT CODE: [id number] XR CHEST 2 V 72932 - XR CHEST 2 V LOCATION: T18 [...] (913) LORETA Lopez NAME: VIMAL BARROSO [address] [place] [address] [place] [address] : 1975 AGE: 44 SEX: M LOC: B.ERS PHONE #: [phone] EXAM DATE: 12/12/2019 STATUS: REG ER FAX #: [phone] RAD NO: DC Dt: PAGE 1 Signed ReportSPINE LUMBAR [id number] 13:37:[address] [address]ZDAYNAKVIN IMAGING REPORTPatient Name: VIMAL BARROSODate of Service: [id number]: 41 Sex: M Order #: [id number] Room: [facility]: 1975 X-Ray Number: [id number] Record Number: [id number] Hospital Number: [id number] Physician: Agatha CROW Physician: RUBY TREVIÑO, 04/08/2017 [...]
--- NOTE | 2023-07-26 09:05 | ER ---
Nurse's Notes [facility] Name: Ruben Alamo Age: 47 yrs Sex: Male : 1975 Arrival Date: 07/26/2023 Time: 07:36 Bed 4 Private MD: Diagnosis: Left clavicle fracture;Muscle spasm Presentation: 07/26 07:50 Chief complaint: Patient states: Continuing L shoulder pain for over 3 weeks. ll1 Coronavirus screen: Vaccine status: Patient reports receiving the 2nd dose of the covid vaccine. Client denies travel out of the [place] in the last 14 days. At this time, the client does not indicate any symptoms associated with coronavirus-19. Ebola Screen: Patient denies travel to an Ebola-affected area in the 21 days before illness onset. Initial Sepsis Screen: Does the patient meet any 2 criteria? No. Patient's initial sepsis screen is negative. Does the patient have a suspected source of infection? No. Patient's initial sepsis screen is negative. Risk Assessment: Do you want to hurt yourself or someone else? Patient reports no desire to harm self or others. Onset of symptoms was July 01, 2023. 07:50 Method Of Arrival: Ambulatory 1 07:50 Acuity: LIZBETH 4 ll1 Triage Assessment: 07:50 General: Appears in no apparent distress. uncomfortable, Behavior is calm, cooperative. rs5 07:50 Pain: Complains of pain in left shoulder Pain does not radiate. Pain currently is 8 out rs5 of 10 on a pain scale. Quality of pain is described as aching, Pain began three weeks ago, worse today Is continuous. Historical: - Allergies: 07:49 Iodine; ll1 07:49 PENICILLINS; ll1 07:49 SHELLFISH; ll1 - PMHx: 07:49 Chronic pain; headache; Hypertensive disorder; ll1 - PSHx: 07:49 facial reconstruction; Spinal surgery; ll1 - Immunization history:: Adult Immunizations up to date. - Social history:: Smoking status: Patient denies any tobacco usage or history of. Screenin:50 [facility] ED Fall Risk Assessment (Adult) History of falling in the last 3 months, rs5 including since admission No falls in past 3 months (0 pts) Confusion or Disorientation No (0 pts) Intoxicated or Sedated No (0 pts) Impaired Gait No (0 pts) Mobility Assist Device Used No (0 pt) Altered Elimination No (0 pt) Score/Fall Risk Level 0 - 2 = Low Risk Oriented to surroundings, Maintained a safe environment. 07:50 Abuse screen: Denies threats or abuse. Nutritional screening: No deficits noted. rs5 Tuberculosis screening: No symptoms or risk factors identified. Assessment: 07:50 General: Appears in no apparent distress. comfortable, Behavior is calm, cooperative. rs5 07:50 Pain: Complains of pain in left shoulder Pain does not radiate. Pain currently is 9 out rs5 of 10 on a pain scale. Quality of pain is described as aching, Pain began three weeks ago, worse today Is continuous. Neuro: Level of Consciousness is awake, alert, obeys commands, Oriented to person, place, time, situation. Cardiovascular: Denies chest pain, Heart tones S1 S2 present Rhythm is regular. Respiratory: Airway is patent Respiratory effort is even, unlabored, Respiratory pattern is regular, symmetrical, Breath sounds are clear bilaterally. GI: Abdomen is round non-distended, Bowel sounds present X 4 quads. Abd is soft and non tender X 4 quads. : No signs and/or symptoms were reported regarding the genitourinary system. EENT: No signs and/or symptoms were reported regarding the EENT system. Derm: Skin is intact, Skin is pink, warm \T\ dry. Musculoskeletal: Range of motion: limited in left shoulder. 09:00 Reassessment: Patient states feeling better. Pain: Complains of pain in left shoulder rs5 Pain does not radiate. Pain currently is 3 out of 10 on a pain scale. Quality of pain is described as aching, Is continuous. 09:00 Reassessment: Patient and/or family updated on plan of care and expected duration. Pain rs5 level reassessed. Patient is alert, oriented x 3, equal unlabored respirations, skin warm/dry/pink. Vital Signs: 07:50 BP 146 / 109; Pulse 68; Resp 17; Temp 97.9; Pulse Ox 99% ; Weight 127.01 kg; Height 5 ll1 ft. 4 in. ; Pain 8/10; 08:02 BP 140 / 97; Pulse 84; Resp 17; Pulse Ox 99% on R/A; rs5 09:05 BP 144 / 98; Pulse 80; Pulse Ox 99% ; rs5 07:50 Body Mass Index 48.06 (127.01 kg, 162.56 cm) ll1 07:50 Pain Scale: Adult 1 ED Course: 07:40 Patient arrived in ED. mg5 07:45 Lamar Vegas, RN is Primary Nurse. ld1 07:48 Trinh Baca FNP is [facility]. jh7 07:48 William Alegre MD is Attending Physician. jh7 07:49 Arm band placed on Patient placed in an exam room, on a stretcher. ll1 07:50 Patient has correct armband on for positive identification. Bed in low position. Call rs5 light in reach. Side rails up X2. 07:51 Triage completed. ll1 08:11 Terry Saleem, RN is Primary Nurse. rs5 08:54 XRAY Shoulder LEFT 2 view In Process Unspecified. EDMS 08:54 XRAY Clavicle LEFT In Process Unspecified. EDMS 09:20 No provider procedures requiring assistance completed. rs5 09:20 Patient did not have IV access during this emergency room visit. rs5 Administered Medications: 08:20 Drug: Ketorolac IM 60 mg IM once Route: IM; Site: right deltoid; rs5 09:00 Follow up: Response: No adverse reaction; Pain is decreased rs5 08:20 Drug: Cyclobenzaprine PO 10 mg PO once Route: PO; rs5 09:00 Follow up: Response: No adverse reaction; Pain is decreased rs5 Medication: 09:20 VIS not applicable for this client. rs5 Outcome: 09:04 Discharge ordered by . 7 09:20 Discharged to home ambulatory, rs5 09:20 Condition: stable 09:20 Discharge instructions given to patient, Instructed on discharge instructions, follow up and referral plans. medication usage, Demonstrated understanding of instructions, follow-up care, medications, Prescriptions given X 2, 09:22 Patient left the ED. tm6 Signatures: Dispatcher [employer] EDAmbika Fernandez RN RN 1 Lamar Vegas, RN RN 1 Trinh Baca, JACQUE [employer] DELIVERY NURSE [facility] Terry Saleem, RN RN rs5 Rena Khan mg5 Sree Qureshi RN RN tm6
--- NOTE | 2023-07-26 09:05 | EDPHYS ---
Physician Documentation [facility] Name: Ruben Alamo Age: 47 yrs Sex: Male : 1975 Arrival Date: 07/26/2023 Time: 07:36 Bed 4 Private MD: ED Physician William Alegre HPI: 07/26 07:50 This 47 yrs old Black Male presents to ER via Ambulatory with complaints of Shoulder jh7 Pain - Left, Arm Pain - Left. 07:50 The patient or guardian complains of an injury, pain, that is acute. left shoulder and jh7 left clavicle. Context: The problem was sustained at work, resulted from a fall, The patient reports no decreased range of motion. The patient reports no obvious deformity. Onset: The symptoms/episode began/occurred 3 week(s) ago. Associated signs and symptoms: Pertinent positives: neck pain, Pertinent negatives: abdominal pain, chest pain, diaphoresis, dyspnea, shortness of breath. 47-year-old male presents to the ER for left shoulder pain for the past 3 weeks. Reports that 3 weeks ago he fell on his left shoulder and the next day he began experiencing pain. Reports that the pain has not worsened or changed. He states that the pain is reproducible with movement of his neck. Reports that the pain is primarily over the lateral aspect of the left clavicle. Denies chest pain, shortness of breath, dizziness, or any other symptoms at this time.. Historical: - Allergies: 07:49 Iodine; ll1 07:49 PENICILLINS; ll1 07:49 SHELLFISH; ll1 - PMHx: 07:49 Chronic pain; headache; Hypertensive disorder; ll1 - PSHx: 07:49 facial reconstruction; Spinal surgery; ll1 - Immunization history:: Adult Immunizations up to date. - Social history:: Smoking status: Patient denies any tobacco usage or history of. ROS: 07:50 Constitutional: Negative for fever, chills, and weight loss, Eyes: Negative for injury, jh7 pain, redness, and discharge, ENT: Negative for injury, pain, and discharge, Cardiovascular: Negative for chest pain, palpitations, and edema, Respiratory: Negative for shortness of breath, cough, wheezing, and pleuritic chest pain, Abdomen/GI: Negative for abdominal pain, nausea, vomiting, diarrhea, and constipation, Skin: Negative for injury, rash, and discoloration, Neuro: Negative for headache, weakness, numbness, tingling, and seizure, 07:50 Neck: Positive for Left shoulder/Clavicle pain reproduced by movement of the neck., 07:50 MS/extremity: Positive for pain, of the left clavicle and left shoulder, Negative for decreased range of motion, 07:50 All other systems are negative, Exam: 07:50 Constitutional: This is a well developed, well nourished patient who is awake, alert, jh7 and in no acute distress. Head/Face: Normocephalic, atraumatic. 07:50 ENT: Nares patent. No nasal discharge, no septal abnormalities noted. Tympanic membranes are normal and external auditory canals are clear. Oropharynx with no redness, swelling, or masses, exudates, or evidence of obstruction, uvula midline. Mucous membranes moist. Neck: Trachea midline, no thyromegaly or masses palpated, and no cervical lymphadenopathy. Supple, full range of motion without nuchal rigidity, or vertebral point tenderness. No Meningismus. Cardiovascular: Regular rate and rhythm with a normal S1 and S2. No gallops, murmurs, or rubs. Normal PMI, no JVD. No pulse deficits. Respiratory: Lungs have equal breath sounds bilaterally, clear to auscultation and percussion. No rales, rhonchi or wheezes noted. No increased work of breathing, no retractions or nasal flaring. Abdomen/GI: Soft, non-tender, with normal bowel sounds. No distension or tympany. No guarding or rebound. No evidence of tenderness throughout. Skin: Warm, dry with normal turgor. Normal color with no rashes, no lesions, and no evidence of cellulitis. Neuro: Awake and alert, GCS 15, oriented to person, place, time, and situation. Motor strength 5/5 in all extremities. Sensory grossly intact. Normal gait. 07:50 Musculoskeletal/extremity: Extremities: noted in the left clavicle and left shoulder: pain, Pain reproduced and described as spasms/shooting with movement of the neck. Patient states that during his fall he fell on his deltoid., ROM: full active range of motion, in the left clavicle and left shoulder, Circulation is intact in all extremities. Perfusion: the extremity is normally perfused throughout, pink, warm, with brisk capillary refill, Sensation intact. 07:50 Musculoskeletal/extremity: Extremities: Tenderness to palpation over the left lateral clavicle, Vital Signs: 07:50 BP 146 / 109; Pulse 68; Resp 17; Temp 97.9; Pulse Ox 99% ; Weight 127.01 kg; Height 5 ll1 ft. 4 in. ; Pain 8/10; 08:02 BP 140 / 97; Pulse 84; Resp 17; Pulse Ox 99% on R/A; rs5 09:05 BP 144 / 98; Pulse 80; Pulse Ox 99% ; rs5 07:50 Body Mass Index 48.06 (127.01 kg, 162.56 cm) ll1 07:50 Pain Scale: Adult ll1 MDM: 07:48 Patient medically screened. [facility] 09:05 Differential diagnosis: Anterior dislocation with fracture, Anterior dislocation [facility] without fracture, DJD, tendonitis, Shoulder sprain, clavicle fracture. Data reviewed: vital signs, nurses notes, radiologic studies, plain films. I considered the following discharge prescriptions or medication management in the emergency department Medications were administered in the Emergency Department. See MAR. Care significantly affected by the following chronic conditions: Hypertension. Counseling: I had a detailed discussion with the patient and/or guardian regarding the historical points, exam findings, and any diagnostic results supporting the discharge/admit diagnosis, to return to the emergency department if symptoms worsen or persist or if there are any questions or concerns that arise at home. Response to treatment: the patient's symptoms have markedly improved after treatment. Special discussion: Informed the patient to only use the sling for comfort and to take pain medicine as directed. Reviewed radiology results and correlated with clinical presentation. Informed the patient that he did have a small fracture noted in the distal clavicle. Advised him to follow-up with Ortho if symptoms persist.. 07/26 07:57 Order name: XRAY Shoulder LEFT 2 view; Complete Time: : [facility] 07/26 07:57 Order name: XRAY Clavicle LEFT; Complete Time: : [facility] 07/26 09:04 Order name: Sling [facility] Administered Medications: 08:20 Drug: Ketorolac IM 60 mg IM once Route: IM; Site: right deltoid; rs5 09:00 Follow up: Response: No adverse reaction; Pain is decreased rs5 08:20 Drug: Cyclobenzaprine PO 10 mg PO once Route: PO; rs5 09:00 Follow up: Response: No adverse reaction; Pain is decreased rs5 Disposition: 10:08 Co-signature as Attending Physician, William Alegre MD I reviewed the patient's care rt provided by the Advanced Practice Provider and agree with the diagnosis and treatment plan. Disposition Summary: 07/26/23 09:04 Discharge Ordered Notes: Location: [place] [address] Problem: new [facility] Symptoms: are unchanged [facility] Condition: Stable [facility] Diagnosis - Left clavicle fracture [facility] - Muscle spasm [facility] Followup: [facility] - With: Private Physician - When: 2 - 3 days - Reason: Recheck today's complaints Discharge Instructions: - Discharge Summary Sheet [facility] - Clavicle Fracture [facility] Forms: - Medication Reconciliation Form [facility] - Thank You Letter [facility] - Patient Portal Instructions [facility] - Leadership Thank You Letter [facility] - Work release form rs5 Prescriptions: - Naprosyn 500 mg Oral Tablet - take 1 tablet ORAL route 2 times per day take with food; 30 tablet; Refills: 0, [facility] Product Selection Permitted - Zanaflex 4 mg Oral Tablet - take 1 tablet ORAL route every 8 hours As needed; 20 tablet; Refills: 0, jh7 Product Selection Permitted Signatures: Dispatcher [employer] Ambika Reyez, RN RN 1 Trinh Baca, [employer] [place] [address] William Alegre MD MD rt Terry Saleem RN RN rs5
[2023-07-26 09:55] VITALS: BP 146/109; TEMP 97.9; O2SAT 99
== END 2023-07-26 09:22 | disposition home or self-care (01) ==
LOC: ER 07:36
DX: S42.035A Nondisplaced fracture of lateral end of left clavicle, initial encounter for closed fracture (principal); M62.838 Other muscle spasm; Z88.0 Allergy status to penicillin; Z91.013 Allergy to seafood; Z91.048 Other nonmedicinal substance allergy status
CPT/HCPCS: 96372; 99284

== ENCOUNTER 2023-12-23 00:41 | Emergency (ER) | payer MEDICARE ==
--- NOTE | 2023-12-23 01:13 | EDPHYS ---
Physician Documentation [facility] Name: Ruben Alamo Age: 48 yrs Sex: Male : 1975 Arrival Date: 12/23/2023 Time: 00:41 Bed IW2 Private MD: [facility] Physician Mynor White HPI: 12/22 01:00 This 48 yrs old Black Male presents to ER via Unassigned with complaints of Back Pain. cp 01:00 The patient presents with pain that is chronic. The symptoms are located in the left cp scapular area and left subscapular area. 01:00 Onset: The symptoms/episode began/occurred chronic. Associated signs and symptoms: cp Pertinent negatives: abdominal pain, chest pain, fever, headache, incontinence, numbness, weakness. The problem was sustained worse over past several days due to working extended hours. Surgery in 2016. Denies any recent injury. Patient requesting work excuse to take today off. Historical: - Allergies: 01:08 Iodine; jb4 01:08 PENICILLINS; jb4 01:08 SHELLFISH; jb4 - PMHx: 01:08 Chronic pain; headache; Hypertensive disorder; jb4 - PSHx: 01:08 facial reconstruction; Spinal surgery; jb4 - Immunization history:: Adult Immunizations up to date. - Social history:: Smoking status: Patient denies any tobacco usage or history of. ROS: 01:05 Back: Positive for chronic pain, Negative for injury or acute deformity, cp 01:05 Constitutional: Negative for body aches, chills, fever, poor PO intake, cp 01:05 Cardiovascular: Negative for chest pain, palpitations, 01:05 Respiratory: Negative for cough, shortness of breath, wheezing, 01:05 Abdomen/GI: Negative for abdominal pain, nausea, vomiting, and diarrhea, 01:05 Neuro: Negative for altered mental status, dizziness, headache, numbness, weakness, 01:05 All other systems are negative, Exam: 01:10 Constitutional: The patient appears in no acute distress, alert, awake, cp non-diaphoretic, non-toxic, well developed, well nourished, obese, 01:10 Head/Face: Normocephalic, atraumatic. cp 01:10 Neck: ROM/movement: limited range of motion, is not appreciated, nuchal rigidity, is not appreciated, 01:10 Cardiovascular: Rate: normal, Rhythm: regular, 01:10 Respiratory: the patient does not display signs of respiratory distress, Respirations: normal, no use of accessory muscles, no retractions, labored breathing, is not present, Breath sounds: are clear throughout, no decreased breath sounds, no stridor, no wheezing, 01:10 Abdomen/GI: Inspection: abdomen appears normal, Palpation: abdomen is soft and non-tender, in all quadrants, 01:10 Back: pain, of the left trapezius and left scapular area, ROM is painful, with all movement, 01:10 Skin: no rash present. 01:10 Neuro: Orientation: to person, place \T\ time. Mentation: is normal, Motor: moves all fours, strength is normal, Sensation: is normal, Gait: is steady, at a normal pace, without difficulty, Vital Signs: 01:05 BP 138 / 84; Pulse 62; Resp 16; Temp 98.1(O); Pulse Ox 98% on R/A; Weight 127.01 kg; jb4 Height 5 ft. 5 in. (R); 01:05 Body Mass Index 46.60 (127.01 kg, 165.1 cm) jb4 MDM: 01:04 Patient medically screened. cp 01:10 Differential diagnosis: chronic back pain, ruptured disc, spinal injury. cp 01:12 Data reviewed: vital signs, nurses notes, and as a result, I will discharge patient. cp 01:12 Counseling: I had a detailed discussion with the patient and/or guardian regarding the cp historical points, exam findings, and any diagnostic results supporting the discharge/admit diagnosis, to return to the emergency department if symptoms worsen or persist or if there are any questions or concerns that arise at home. ED course: VSS. Note provided for work. Patient can return to ED at any time for reevaluation. Administered Medications: No medications were administered Disposition Summary: 12/23/23 01:12 Discharge Ordered Notes: Location: Home cp Problem: chronic cp Symptoms: are unchanged cp Condition: Stable cp Diagnosis - Encounter for screening, unspecified cp Followup: cp - With: Private Physician - When: 2 - 3 days - Reason: Worsening of condition Discharge Instructions: - Chronic Back Pain cp - Form - Excuse from Work, School, or Physical Activity cp - Discharge Summary Sheet jb4 Forms: - Medication Reconciliation Form cp - Thank You Letter cp - Antibiotic Education cp - Prescription Opioid Use cp - Patient Portal Instructions cp - Leadership Thank You Letter cp - Work release form jb4 Signatures: Mynor Peña PA PA cp Bryson, James, RN RN jb4
--- NOTE | 2023-12-23 01:13 | ER ---
Nurse's Notes [facility] Name: Ruben Almao Age: 48 yrs Sex: Male : 1975 Arrival Date: 12/23/2023 Time: 00:41 Bed IW2 Private MD: Diagnosis: Encounter for screening, unspecified Presentation: 12/22 01:05 Chief complaint: Patient states: I recently had surgery and my body is not use to jb4 working shut down. I just need a work note for sunday. Coronavirus screen: At this time, the client does not indicate any symptoms associated with coronavirus-19. Ebola Screen: No symptoms or risks identified at this time. Initial Sepsis Screen: Does the patient meet any 2 criteria? No. Patient's initial sepsis screen is negative. Does the patient have a suspected source of infection? No. Patient's initial sepsis screen is negative. Risk Assessment: Do you want to hurt yourself or someone else? Patient reports no desire to harm self or others. Onset of symptoms was December 23, 2023. Transition of care: patient was not received from another setting of care. 01:05 Method Of Arrival: Ambulatory 4 01:05 Acuity: LIZBETH 5 jb4 Triage Assessment: 01:08 General: Appears in no apparent distress. comfortable, Behavior is calm, cooperative, jb4 appropriate for age. Pain: Complains of pain in back Pain does not radiate. Pain currently is 7 out of 10 on a pain scale. Neuro: Level of Consciousness is awake, alert, obeys commands, Oriented to person, place, time, situation. Cardiovascular: Patient's skin is warm and dry. Respiratory: Airway is patent Respiratory effort is even, unlabored, Respiratory pattern is regular, symmetrical. GI: No signs and/or symptoms were reported involving the gastrointestinal system. : No signs and/or symptoms were reported regarding the genitourinary system. Derm: Skin is intact, Skin is pink, warm \T\ dry. Musculoskeletal: Circulation, motion, and sensation intact. Range of motion: intact in all extremities. Historical: - Allergies: 01:08 Iodine; jb4 01:08 PENICILLINS; jb4 01:08 SHELLFISH; jb4 - PMHx: 01:08 Chronic pain; headache; Hypertensive disorder; jb4 - PSHx: 01:08 facial reconstruction; Spinal surgery; jb4 - Immunization history:: Adult Immunizations up to date. - Social history:: Smoking status: Patient denies any tobacco usage or history of. Screenin:10 [facility] ED Fall Risk Assessment (Adult) History of falling in the last 3 months, jb4 including since admission No falls in past 3 months (0 pts) Confusion or Disorientation No (0 pts) Intoxicated or Sedated No (0 pts) Impaired Gait No (0 pts) Mobility Assist Device Used No (0 pt) Altered Elimination No (0 pt) Score/Fall Risk Level 0 - 2 = Low Risk Oriented to surroundings, Maintained a safe environment. Abuse screen: Denies threats or abuse. Nutritional screening: No deficits noted. Tuberculosis screening: No symptoms or risk factors identified. Assessment: 01:11 Reassessment: see triage note. jb4 Vital Signs: 01:05 BP 138 / 84; Pulse 62; Resp 16; Temp 98.1(O); Pulse Ox 98% on R/A; Weight 127.01 kg; jb4 Height 5 ft. 5 in. (R); 01:05 Body Mass Index 46.60 (127.01 kg, 165.1 cm) jb4 ED Course: 00:44 Patient arrived in ED. gm2 00:51 Mynor Peña PA is PHCP. cp 00:51 Mynor White MD is Attending Physician. cp 01:08 Triage completed. jb4 01:08 Arm band placed on right wrist. jb4 01:10 Patient has correct armband on for positive identification. Provided Education on: jb4 Discharge instructions.. 01:10 No provider procedures requiring assistance completed. Patient did not have IV access jb4 during this emergency room visit. Administered Medications: No medications were administered Medication: 01:10 VIS not applicable for this client. jb4 Outcome: 01:10 Discharged to home ambulatory, jb4 01:10 Condition: stable 01:10 Discharge instructions given to patient, Instructed on discharge instructions, follow up and referral plans. Demonstrated understanding of instructions, follow-up care, 01:12 Discharge ordered by . cp 01:18 Patient left the ED. jb4 Signatures: Mynor Peña PA PA cp Bryson, James, RN RN jb4 Flora Soriano gm2 Corrections: (The following items were deleted from the chart) 01:10 01:05 Pulse 62bpm; Resp 16bpm; Pulse Ox 98% RA; Temp 98.1F Oral; 127.01 kg; Height 5 jb4 ft. 5 in. Reported; BMI: 46.5; jb4
[2023-12-23 05:12] VITALS: BP 138/84; TEMP 98.1; O2SAT 98
== END 2023-12-23 01:18 | disposition home or self-care (01) ==
LOC: ER 00:41
DX: M54.9 Dorsalgia, unspecified (principal); Z02.79 Encounter for issue of other medical certificate
CPT/HCPCS: 99282

== ENCOUNTER 2024-01-06 00:30 | Emergency (ER) | payer MEDICARE, SELFPAY ==
[2024-01-06] MEDS ORDERED: KETOROLAC 30 MG/ML INJ ONE (00:56)
[2024-01-06] MEDS ORDERED: NA CHLORIDE 0.9% 1,000 ML ONE (00:56)
[2024-01-06] MEDS ORDERED: METOCLOPRAMIDE 10 MG/2mL INJ ONE (00:56)
--- NOTE | 2024-01-06 01:22 | ER ---
Nurse's Notes [facility] Name: Ruben Alamo Age: 48 yrs Sex: Male : 1975 Arrival Date: 01/06/2024 Time: 00:30 Bed 4 Private MD: Diagnosis: Headache Presentation: 01/05 00:38 Chief complaint: Patient states: intermittent headache pain of 7,onset yesterday. pf1 Patient stated did not take any pain medications today. 00:38 Coronavirus screen: Vaccine status: Patient reports receiving the 2nd dose of the covid pf1 vaccine. [employer] Client denies travel out of the [place] in the last 14 days. At this time, the client does not indicate any symptoms associated with coronavirus-19. Ebola Screen: Patient negative for fever greater than or equal to 101.5 degrees Fahrenheit, and additional compatible Ebola Virus Disease symptoms. Initial Sepsis Screen: Does the patient meet any 2 criteria? No. Patient's initial sepsis screen is negative. Does the patient have a suspected source of infection? No. Patient's initial sepsis screen is negative. Risk Assessment: Do you want to hurt yourself or someone else? Patient reports no desire to harm self or others. Onset of symptoms was January 04, 2024. 00:38 Method Of Arrival: Ambulatory pf1 00:38 Acuity: LIZBETH 3 pf1 Triage Assessment: 01:02 Headache History: The patient has had previous headaches and this one is similar to rv previous episodes. General: Appears comfortable. Pain: Pain Pain began suddenly, Also complains of no other associated symptoms. Historical: - Allergies: 00:50 Iodine; pf1 00:50 PENICILLINS; pf1 00:50 SHELLFISH; pf1 - PMHx: 00:50 Chronic pain; headache; Hypertensive disorder; Diabetes mellitus; pf1 - PSHx: 00:50 facial reconstruction; Spinal surgery; pf1 - Immunization history:: Adult Immunizations up to date, Client reports receiving the 2nd dose of the Covid vaccine, [employer] Last tetanus immunization: < 5 years ago Flu vaccine is up to date. - Infectious Disease History:: Denies. - Social history:: Smoking status: Patient denies any tobacco usage or history of. Patient/guardian denies using alcohol, street drugs. Screenin:01 [facility] ED Fall Risk Assessment (Adult) History of falling in the last 3 months, rv including since admission No falls in past 3 months (0 pts) Score/Fall Risk Level 0 - 2 = Low Risk Oriented to surroundings, Maintained a safe environment, Educated pt \T\ family on fall prevention, incl call for assistance when getting out of bed, Assessed \T\ reinforced patient's understanding of fall precautions. Abuse screen: Denies threats or abuse. Denies injuries from another. Nutritional screening: No deficits noted. Tuberculosis screening: No symptoms or risk factors identified. Assessment: 01:01 General: Appears in no apparent distress. Behavior is calm, cooperative. Pain: rv Complains of pain in head. Neuro: Level of Consciousness is awake, alert, obeys commands, Oriented to person, place, time, situation, Reports headache. Cardiovascular: Capillary refill < 3 seconds Patient's skin is warm and dry. Respiratory: Airway is patent Respiratory effort is even, unlabored. GI: No signs and/or symptoms were reported involving the gastrointestinal system. : No signs and/or symptoms were reported regarding the genitourinary system. Vital Signs: 00:38 BP 146 / 73; Pulse 62; Resp 16; Temp 97.6; Pulse Ox 100% on R/A; Weight 131.54 kg; pf1 Height 5 ft. 4 in. ; Pain 7/10; 00:38 Body Mass Index 49.78 (131.54 kg, 162.56 cm) pf1 00:38 Pain Scale: Adult pf1 ED Course: 00:34 Patient arrived in ED. gm2 00:35 Joseluis Ramirez MD is Attending Physician. ec2 00:44 Lee Nguyen RN is Primary Nurse. rv 00:49 Triage completed. pf1 01:01 Patient has correct armband on for positive identification. Client placed on continuous rv cardiac and pulse oximetry monitoring. NIBP monitoring applied. 01:01 No provider procedures requiring assistance completed. Inserted saline lock: 20 gauge rv in left hand, using aseptic technique. 01:03 Arm band placed on right wrist. rv 01:24 IV discontinued, intact, bleeding controlled, No redness/swelling at site. Pressure rv dressing applied. Administered Medications: 01:01 Drug: NS 0.9% IV 1000 ml IV at 1 bolus Per protocol; 1000 mL bolus Route: IV; Rate: 1 rv bolus; Site: left hand; 01:01 Drug: metoCLOPramide IVP 10 mg IVP once; over 1 to 2 minutes Route: IVP; Site: left rv hand; 01:23 Follow up: Response: No adverse reaction rv 01:01 Drug: Ketorolac IVP 15 mg IVP once Route: IVP; Site: left hand; rv 01:23 Follow up: Response: No adverse reaction rv Medication: 01:01 VIS not applicable for this client. rv Outcome: 01:21 Discharge ordered by MD. [email or web address] 01:24 Discharged to home pt left before instructions rv 01:24 unknown 01:24 Discharge instructions given to pt left before instructions rv 01:24 Patient left the ED. rv Signatures: Lee Nguyen RN RN rv Josy Crespo RN RN pf1 Joseluis Ramirez MD MD ec2 Flora Soriano 2
--- NOTE | 2024-01-06 01:22 | EDPHYS ---
Physician Documentation [facility] Name: Ruben Alamo Age: 48 yrs Sex: Male : 1975 Arrival Date: 01/06/2024 Time: 00:30 Bed 4 Private MD: ED Physician Joseluis Ramirez HPI: 01/05 00:43 This 48 yrs old Black Male presents to ER via Unassigned with complaints of Headache. ec2 00:43 Patient arrives today for 2 days of headache. Patient with no specific alleviating or ec2 exacerbating factors, has been waxing and waning, no nausea or vomiting, no head trauma. No recent illnesses, no issues with p.o. intake. Has not taken medications for symptoms.. Historical: - Allergies: 00:50 Iodine; pf1 00:50 PENICILLINS; pf1 00:50 SHELLFISH; pf1 - PMHx: 00:50 Chronic pain; headache; Hypertensive disorder; Diabetes mellitus; pf1 - PSHx: 00:50 facial reconstruction; Spinal surgery; pf1 - Immunization history:: Adult Immunizations up to date, Client reports receiving the 2nd dose of the Covid vaccine, [employer] Last tetanus immunization: < 5 years ago Flu vaccine is up to date. - Infectious Disease History:: Denies. - Social history:: Smoking status: Patient denies any tobacco usage or history of. Patient/guardian denies using alcohol, street drugs. ROS: 00:43 Constitutional: as per hpi ec2 Exam: 00:43 Constitutional: GEN: NAD Head: atraumatic Eyes: EOMI Ears: External ears are ec2 normal. CV: regular rate LUNGS: no respiratory distress ABD: non-distended SKIN: no evidence of rashes MSK: no evidence of trauma NEURO: moves all extremities equally, cranial nerves II through XII intact, strength intact all 4 extremities Vital Signs: 00:38 BP 146 / 73; Pulse 62; Resp 16; Temp 97.6; Pulse Ox 100% on R/A; Weight 131.54 kg; pf1 Height 5 ft. 4 in. ; Pain 7/10; 00:38 Body Mass Index 49.78 (131.54 kg, 162.56 cm) pf1 00:38 Pain Scale: Adult pf1 MDM: 00:40 Patient medically screened. ec2 00:43 Data reviewed: vital signs. ED course: Patient arrives today for evaluation of ec2 headache. Examination remarkable for neuro intact individual is otherwise in no acute distress. Will obtain IV access, give the patient crystalloid, Reglan and Toradol for his symptoms. Doubt intracranial mass or brain bleed given descriptors of symptoms, doubt electrolyte disturbances or anemia given the patient's general well appearance and lack of systemic signs symptoms. Will focus on symptom management.. 01:20 ED course: Patient received medications, subsequently eloped. Unclear why patient left. ec2 Low suspicion for acute intracranial pathology. . Administered Medications: 01: Drug: NS 0.9% IV 1000 ml IV at 1 bolus Per protocol; 1000 mL bolus Route: IV; Rate: 1 rv bolus; Site: left hand; 01:01 Drug: metoCLOPramide IVP 10 mg IVP once; over 1 to 2 minutes Route: IVP; Site: left rv hand; 01:23 Follow up: Response: No adverse reaction rv 01:01 Drug: Ketorolac IVP 15 mg IVP once Route: IVP; Site: left hand; rv 01:23 Follow up: Response: No adverse reaction rv Disposition Summary: 01/06/24 01:21 Discharge Ordered Notes: Location: Home ec2 Condition: Stable ec2 Diagnosis - Headache ec2 Followup: ec2 - With: Private Physician - When: - Reason: Recheck today's complaints Discharge Instructions: - Discharge Summary Sheet ec2 - General Headache Without Cause ec2 Forms: - Medication Reconciliation Form ec2 - Thank You Letter ec2 - Antibiotic Education ec2 - Prescription Opioid Use ec2 - Patient Portal Instructions ec2 - Leadership Thank You Letter ec2 Signatures: Lee Nguyen RN RN rv Josy Crespo RN RN pf1 Joseluis Ramirez MD MD ec2
[2024-01-06 09:23] VITALS: BP 146/73; TEMP 97.6; O2SAT 100
== END 2024-01-06 01:24 | disposition home or self-care (01) ==
LOC: ER 00:30
DX: R51.9 Headache, unspecified (principal)
CPT/HCPCS: 96374; 96375; 99284; J2765; J7030

== ENCOUNTER 2024-03-17 06:37 | Emergency (ER) | payer SELFPAY ==
[2024-03-17] MEDS ORDERED: PANTOPRAZOLE 40MG TABLET PO ONE (07:41)
[2024-03-17 09:08] LABS: Absolute Eosinophils 0.2 K/uL (0-0.5); Absolute Monocytes 0.5 K/uL (0.1-1.3); Absolute Neutrophil 4.7 K/uL (1.8-8.0); Basophils % 0.4 % (0-1.3); Eosinophils % 3.2 % (0-4.4); Hematocrit 39.7 % (39.6-49.0); Hemoglobin 13.5 g/dL (13.6-17.9); Lymphocytes % 26.2 % (15.3-44.8); MCH 30.8 pg (27.0-35.0); MCHC 34.1 g/dL (32.0-36.0); MCV 90.4 fL (80-100); MPV 10.2 fL (7.6-11.3); Monocytes % 6.9 % (3.3-12.3); Neutrophils % 63.3 % (41.7-73.7); Platelets 172 thou/uL (152-406); Red Cell Distribution Width 12.7 % (12.1-15.2)
[2024-03-17 09:30] LABS: Albumin 3.1 g/dL (3.4-5.0); Albumin/Globulin Ratio 0.8 (1.1-1.8); Anion Gap 5.7 mEq/L (5.0-15.0); Bilirubin Total 0.8 mg/dL (0.2-1.0); Potassium 3.7 mEq/L (3.5-5.1); Protein, Total 7.1 g/dL (6.4-8.2)
--- NOTE | 2024-03-17 09:35 | EDPHYS ---
Physician Documentation [facility] Name: Ruben Alamo Age: 48 yrs Sex: Male : 1975 Arrival Date: 03/17/2024 Time: 06:37 Bed 8 Private MD: ED Physician William Alegre HPI: 03/17 07:31 This 48 yrs old Black Male presents to ER via Ambulatory with complaints of Abdominal rt Pain. 07:31 Patient presents to the ED with epigastric pain that occurs only at nighttime for the rt past few nights. Patient has taken Pepto-Bismol which improved the symptoms. Patient denies any pain currently. Denies any nausea, vomiting, urinary symptoms. Denies other acute complaints, symptoms are moderate in severity, no other aggravating or alleviating factors.. Historical: - Allergies: 07:22 Iodine; vc1 07:22 PENICILLINS; vc1 07:22 SHELLFISH; vc1 - PMHx: 07:22 Chronic pain; diabetes mellitus; headache; Hypertensive disorder; vc1 - PSHx: 07:22 facial reconstruction; Spinal surgery; vc1 - Immunization history:: Client reports receiving the 2nd dose of the Covid vaccine, Flu vaccine is up to date. - Infectious Disease History:: Denies. - Social history:: Smoking status: Patient denies any tobacco usage or history of. - Family history:: not pertinent. ROS: 07:31 Constitutional: Negative for fever, chills, and weight loss, Cardiovascular: Negative rt for chest pain, palpitations, and edema, Respiratory: Negative for shortness of breath, cough, wheezing, and pleuritic chest pain, MS/Extremity: Negative for injury and deformity, Skin: Negative for injury, rash, and discoloration, Neuro: Negative for headache, weakness, numbness, tingling, and seizure, 07:31 Abdomen/GI: Positive for abdominal pain, Negative for nausea, vomiting, and diarrhea, Exam: 07:31 Constitutional: This is a well developed, well nourished patient who is awake, alert, rt and in no acute distress. Head/Face: Normocephalic, atraumatic. Chest/axilla: Normal chest wall appearance and motion. Nontender with no deformity. No lesions are appreciated. Cardiovascular: Regular rate and rhythm with a normal S1 and S2. No gallops, murmurs, or rubs. Normal PMI, no JVD. No pulse deficits. Respiratory: Lungs have equal breath sounds bilaterally, clear to auscultation and percussion. No rales, rhonchi or wheezes noted. No increased work of breathing, no retractions or nasal flaring. Abdomen/GI: Soft, non-tender, with normal bowel sounds. No distension or tympany. No guarding or rebound. No evidence of tenderness throughout. Skin: Warm, dry with normal turgor. Normal color with no rashes, no lesions, and no evidence of cellulitis. MS/ Extremity: Pulses equal, no cyanosis. Neurovascular intact. Full, normal range of motion. Neuro: Awake and alert, GCS 15, oriented to person, place, time, and situation. Cranial nerves II-XII grossly intact. Motor strength 5/5 in all extremities. Sensory grossly intact. Cerebellar exam normal. Normal gait. Vital Signs: 06:50 BP 119 / 68; Pulse 62; Resp 15; Temp 98.6; Pulse Ox 98% ; Weight 127.01 kg; Height 5 vc1 ft. 1 in. ; Pain 8/10; 09:03 BP 125 / 70; Pulse 52; Resp 16; Pulse Ox 98% ; ko1 06:50 Body Mass Index 52.90 (127.01 kg, 154.94 cm) vc1 06:50 Pain Scale: Adult vc1 MDM: 07:18 Patient medically screened. rt 09:35 Differential Diagnosis Gastritis, acid reflux, pancreatitis. Data reviewed: vital rt signs, nurses notes, lab test result(s). I considered the following discharge prescriptions or medication management in the emergency department Medications were administered in the Emergency Department. See MAR. Test considered but Not performed: CT: Benign abdominal examination, stable labs, vital signs, CT scan is not indicated.. Care significantly affected by the following chronic conditions: Diabetes. Counseling: I had a detailed discussion with the patient and/or guardian regarding the historical points, exam findings, and any diagnostic results supporting the discharge/admit diagnosis, lab results, the need for outpatient follow up, to return to the emergency department if symptoms worsen or persist or if there are any questions or concerns that arise at home. Response to treatment: the patient's symptoms have resolved after treatment. 03/17 07:22 Order name: CBC with Diff; Complete Time: 09:13 rt 03/17 07:22 Order name: CMP; Complete Time: 09:30 rt 03/17 07:22 Order name: Lipase; Complete Time: 09:30 rt Administered Medications: 07:43 Drug: Pantoprazole PO 40 mg PO once Route: PO; ko1 08:20 Follow up: Response: No adverse reaction ko1 08:30 Follow up: Response: No adverse reaction ko1 Disposition Summary: 03/17/24 09:34 Discharge Ordered Notes: Location: Home rt Problem: new rt Symptoms: have improved rt Condition: Stable rt Diagnosis - Epigastric pain rt Followup: rt - With: Private Physician - When: 2 - 3 days - Reason: Discharge Instructions: - Discharge Summary Sheet rt - Abdominal Pain, Adult rt Forms: - Work release form bd - Medication Reconciliation Form rt - Antibiotic Education rt - Prescription Opioid Use rt - Patient Portal Instructions rt - Leadership Thank You Letter rt Prescriptions: - Carafate 1 gram Oral tablet - take 1 tablet ORAL route 4 times per day as needed; 30 tablet; Refills: 0, rt Product Selection Permitted - Protonix 40 mg Oral Tablet - take 1 tablet ORAL route once daily; 30 tablet; Refills: 0, Product Selection rt Permitted Signatures: Dispatcher [employer] EDMS Kasie Soliman RN RN vc1 Flory Gonzalez RN RN ko1 William Alegre MD MD rt Corrections: (The following items were deleted from the chart) 08:55 08:55 CBC+H.LAB.BRZ ordered. EDMS EDMS 08:55 08:55 COMPREHENSIVE METABOLIC PANEL+C.LAB.BRZ ordered. EDMS EDMS 08:55 08:55 LIPASE+C.LAB.BRZ ordered. EDMS EDMS
--- NOTE | 2024-03-17 09:35 | ER ---
Nurse's Notes [facility] Name: Ruben Alamo Age: 48 yrs Sex: Male : 1975 Arrival Date: 03/17/2024 Time: 06:37 Bed 8 Private MD: Diagnosis: Epigastric pain Presentation: 03/17 06:50 Chief complaint: Patient states: pain that goes up my neck. "It feels like I have vc1 trapped gas". 06:50 Method Of Arrival: Ambulatory vc1 06:50 Coronavirus screen: Vaccine status: Patient reports being unvaccinated. Client denies vc1 travel out of the [place] in the last 14 days. At this time, the client does not indicate any symptoms associated with coronavirus-19. Ebola Screen: Patient negative for fever greater than or equal to 101.5 degrees Fahrenheit, and additional compatible Ebola Virus Disease symptoms Patient denies exposure to infectious person. Patient denies travel to an Ebola-affected area in the 21 days before illness onset. No symptoms or risks identified at this time. Initial Sepsis Screen: Does the patient meet any 2 criteria? No. Patient's initial sepsis screen is negative. Does the patient have a suspected source of infection? No. Patient's initial sepsis screen is negative. Risk Assessment: Do you want to hurt yourself or someone else? Patient reports no desire to harm self or others. Onset of symptoms was March 15, 2024. 06:50 Acuity: LIZBETH 4 vc1 Historical: - Allergies: 07:22 Iodine; vc1 07:22 PENICILLINS; vc1 07:22 SHELLFISH; vc1 - PMHx: 07:22 Chronic pain; diabetes mellitus; headache; Hypertensive disorder; vc1 - PSHx: 07:22 facial reconstruction; Spinal surgery; vc1 - Immunization history:: Client reports receiving the 2nd dose of the Covid vaccine, Flu vaccine is up to date. - Infectious Disease History:: Denies. - Social history:: Smoking status: Patient denies any tobacco usage or history of. - Family history:: not pertinent. Screenin:00 Tuberculosis screening: No symptoms or risk factors identified. vc1 07:22 [facility] ED Fall Risk Assessment (Adult) History of falling in the last 3 months, vc1 including since admission No falls in past 3 months (0 pts) Confusion or Disorientation No (0 pts) Intoxicated or Sedated No (0 pts) Impaired Gait No (0 pts) Mobility Assist Device Used No (0 pt) Altered Elimination No (0 pt) Score/Fall Risk Level 0 - 2 = Low Risk Oriented to surroundings, Maintained a safe environment, Educated pt \\T\\ family on fall prevention, incl call for assistance when getting out of bed. Abuse screen: Denies threats or abuse. Nutritional screening: No deficits noted. Assessment: 08:20 General: Appears in no apparent distress. Behavior is calm, cooperative, appropriate ko1 for age. Pain: Complains of pain in abdomen. Neuro: No deficits noted. Cardiovascular: No deficits noted. Respiratory: No deficits noted. GI: Bowel sounds present X 4 quads. Abd is soft and non tender X 4 quads. : No deficits noted. EENT: No deficits noted. Derm: No deficits noted. Musculoskeletal: No deficits noted. 08:21 Reassessment: Called phlebotomy for assistance with blood draw. Sherrell on the way. ld1 09:01 Reassessment: lab here to draw blood. ko1 Vital Signs: 06:50 BP 119 / 68; Pulse 62; Resp 15; Temp 98.6; Pulse Ox 98% ; Weight 127.01 kg; Height 5 vc1 ft. 1 in. ; Pain 8/10; 09:03 BP 125 / 70; Pulse 52; Resp 16; Pulse Ox 98% ; ko1 06:50 Body Mass Index 52.90 (127.01 kg, 154.94 cm) vc1 06:50 Pain Scale: Adult vc1 ED Course: 06:42 Patient arrived in ED. gm2 06:58 William Alegre MD is Attending Physician. rt 07:22 Triage completed. vc1 07:22 Arm band placed on right wrist. vc1 07:23 Patient has correct armband on for positive identification. Bed in low position. Call vc1 light in reach. Pulse ox on. NIBP on. 07:40 Flory Gonzalez, ANAHI is Primary Nurse. ko1 08:20 Provided Education on: call light, labs. ko1 08:20 No provider procedures requiring assistance completed. ko1 08:59 Lipase Sent. ko1 08:59 CMP Sent. ko1 08:59 CBC with Diff Sent. ko1 09:03 Door closed. Noise minimized. Lights dimmed. Warm blanket given. Pillow given. ko1 10:21 Patient did not have IV access during this emergency room visit. ko1 Administered Medications: 07:43 Drug: Pantoprazole PO 40 mg PO once Route: PO; ko1 08:20 Follow up: Response: No adverse reaction ko1 08:30 Follow up: Response: No adverse reaction ko1 Medication: 07:23 VIS not applicable for this client. vc1 Outcome: 09:34 Discharge ordered by MD. rt 10:00 Discharged to home ambulatory, ko1 10:00 Condition: stable 10:00 Discharge instructions given to patient, Instructed on discharge instructions, follow up and referral plans. medication usage, Demonstrated understanding of instructions, follow-up care, medications, Prescriptions given X 2, 10:22 Patient left the ED. ko1 Signatures: Lamar Vegas RN RN ld1 Kasie Soliman RN RN vc1 Flory Gonzalez RN RN ko1 William Alegre MD MD rt Flora Soriano 2
[2024-03-17 18:11] VITALS: BP 125/70; TEMP 98.6; O2SAT 98
== END 2024-03-17 10:22 | disposition home or self-care (01) ==
LOC: ER 06:37
DX: R10.13 Epigastric pain (principal)
CPT/HCPCS: 36415; 80053; 83690; 85025